=== PATIENT | female | born 1945 | race Caucasian/White ===

== ENCOUNTER → 2016-06-05 | Day surgery (SDC) | payer OTHER ==
[~2016-06-05] VITALS: Ht 167.6 cm; Wt 54.0 kg
[~2016-06-05] MED LIST: CEFD250S3 PO; Enteral Nutrition Formula PEG; FLUT0.15 NAE; HYDR-5688 PO; OMEP40CA41 PO; [UNRECOGNIZED DRUG - CODE] PO
[2016-06-05 09:24] VITALS: Ht 167.6 cm; Wt 54.0 kg
--- NOTE | 2016-06-05 10:36 | Discharge Instructions ---
Endoscopy Patient Instructions Date / Procedure(s) Performed Jun 05, 2016. Other (PEG tube exchange) Allergy Information Coded Allergies: Penicillins (Verified Allergy, Mild, 05/15/15) Discharge Date / Findings Jun 05, 2016. PEG tube exchanged - Vladimir 3.5 cm 20 Fr balloon peg placed Provider Instructions Activity Restrictions - No exercising or heavy lifting for 24 hours. - Do not drink alcohol the day of the procedure. - Do not drive a car or operate machinery until the day after the procedure. - Do not make any important decisions or sign important papers in 24 hours after the procedure. Following Day: - Return to full activity which may include returning to work/school. Diet Resume normal PEG tube feeding schedule. Treatment For Common After Affects For mild abdominal pain, bloating, or excessive gas: - Rest - Eat lightly - Lie on right side Follow-Up Information Follow-up with DR FENG as scheduled Anesthesia Information What You Should Know You have had a procedure that required some medicine to reduce anxiety and discomfort. This treatment is called moderate sedation. After receiving the treatment, you may be sleepy, but you will be able to breathe on your own. The effects of the treatment may last for several hours. Follow these instructions along with Activity/Diet recommendations noted above: * Do NOT do anything where dizziness or clumsiness would be dangerous. * Rest quietly at home today, then you can be up and about tomorrow. * Have a responsible person stay with you the rest of today. * You may have had an I.V. today. If so, you may take the dressing off later today. Recommendations Call your doctor if: * Trouble breathing * Continuous vomiting for more than 24 hours * Temperature above 101 degrees * Severe abdominal pain or bloating * Pain not relieved by pain medicine ordered * There is increased drainage or redness from any incision * A large amount of rectal bleeding greater than 2-3 tablespoons. (If you had a polyp/s removed or have hemorrhoids, a small amount of blood - from the rectum is to be expected.) * You have any unanswered questions or concerns. IN THE EVENT OF A SERIOUS EMERGENCY, GO TO THE NEAREST EMERGENCY ROOM Your discharge instructions were prepared by provider Imtiaz Chowdary. Patient Instructions Signature Page Sharmin Jackson Patient (or Guardian) Signature/Date: I have read and understand the instructions given to me by my caregivers. Caregiver/RN/Doctor Signature/Date: The above-named patient and/or guardian has received patient instructions on this date. + Original Patient Signature Page (only) stays with chart. Please make copy for patient.
--- NOTE | 2016-06-05 10:37 | Endo History and Physical ---
History & Physical Date of Service: Jun 05, 2016. Chief Complaint: FEEDING DIFFICULTIES Referring Physician: DR FENG History of Present Illness PEG tube Past Medical History Osteoporosis, Reflux, Cancer, Thyroid Disease Past Surgical History Hx Cardiac Surgery: No Hx Internal Defibrillator: No Hx Pacemaker: No Hx Abdominal Surgery: No Hx of Implantable Prosthesis: No Hx Post-Op Nausea and Vomiting: No Hx Cancer Surgery: Yes (PARTIAL MASTECTOMY) Hx Thoracic Surgery: No Hx Orthopedic: No Hx Urinary Tract Surgery: No Family History Colon CA Social History Smoking Status: Never Smoker Hx Substance Use: No Hx Alcohol Use: No Allergies Coded Allergies: Penicillins (Verified Allergy, Mild, 05/15/15) Current Medications Reported Home Medications Medications Dose Route/Sig Max Daily Dose Days Date Category Dose Instructions Omnicef (Cefdinir) 250 Mg/5 Ml Rachel 6 Ml PO DAILY 10 06/05/16 Reported [Enteral Nutrition Formula] 1000 ML Liqd 240 Ml PEG [id number] 30 05/18/15 Rx As Directed.Prescription is already given Flonase Allergy Relief (Fluticasone Propionate (Nasal)) 50 Mcg/Act Spr 2 Sprays NAVEED DAILY 05/04/15 Reported Levo-T (Levothyroxine Sodium) 112 Mcg Tab 112 Mcg PO DAILY 05/04/15 Reported Prilosec (Omeprazole) 40 Mg Cap 40 Mg PO DAILY 05/04/15 Reported Vital Signs Weight (Kilograms): 54 Height (Feet): 5 Height (Inches): 6 Date Time Temp Pulse Resp B/P Pulse Ox O2 Delivery O2 Flow Rate FiO2 06/05/16 09:23 36.4 61 16 168/70 100 Room Air Physical Exam General Appearance: no apparent distress Abdomen: Inspection & Palpation: soft Assessment and Plan PEG tube exchange
--- NOTE | 2016-06-05 10:39 | GI REPORT ---
Procedure Date: 06/05/2016 10:38 AM Procedure: Non-endoscopic Tube Procedure Indications: Change PEG to button Medicines: See the Anesthesia note for documentation of the administered medications Complications: No immediate complications. Estimated Blood Loss: Estimated blood loss: none. Procedure: Pre-Anesthesia Assessment: - ASA Grade Assessment: III - A patient with severe systemic disease. After obtaining informed consent, the site was prepped and the procedure was performed. The procedure was accomplished without difficulty. The patient tolerated the procedure well. Findings: Upon external examination, normal-appearing skin was found surrounding the stomal opening. The gastrostomy tube was patent. The gastrostomy tube required removal. The existing PEG site was cleaned. The existing PEG balloon was deflated and by using traction, removal was easily accomplished. A 20 Fr CELINA-PIERCE 3.5 cm low-profile gastrostomy tube was lubricated and placed into the existing gastrostomy port. A total of 6 mL distilled water was used to distend the balloon that was previously tested. The final tension and compression of the abdominal wall by the gastrostomy tube and external bumper were checked and revealed that the bumper was loose and lightly touching the skin. Placement into the stomach was confirmed with flushing, aspiration and auscultation. The tube was capped, and the tube site was cleaned and dressed. Impression: - The gastrostomy tube was removed and replaced with a 20 Fr CELINA-PIERCE low-profile gastrostomy tube. - No specimens collected. Recommendation: Discharge pt home. Orly Kan MD 06/05/2016 10:39:54 AM This report has been signed electronically. Note Initiated On: 06/05/2016 10:38 AM I attest to the content of the Intraoperative Record and orders documented therein, exceptions below
[2016-06-05 10:40] VITALS: BP 172/78; PULSE 61; O2SAT 98
== END | disposition home or self-care (01) ==
LOC: C.GI 08:48
PROVIDERS: ATTEND Internal Medicine Gastroenterology
DX: Z43.1 Encounter for attention to gastrostomy (principal); K21.9 Gastro-esophageal reflux disease without esophagitis; M81.0 Age-related osteoporosis without current pathological fracture; Z88.0 Allergy status to penicillin; Z80.0 Family history of malignant neoplasm of digestive organs

== ENCOUNTER → 2016-08-22 | Outpatient (CLI) | payer OTHER ==
[~2016-08-22] MED LIST changes: -HYDR-5688 PO
[2016-08-22 15:47] LABS: BASO % 0.3 %; BASO ABS # 0.01 K/uL (0-0.2); COMPLETE YES; EOS % 1.3 %; HEMATOCRIT 36.8 % (37-47); LYMPH % 19.9 %; LYMPH ABS # 0.78 K/uL (1.2-3.4); MEAN CELL VOLUME 90.4 fL (80-100); MEAN CORPUSCULAR HEMOGLOBIN 30.2 pg (25-34); MEAN CORPUSCULAR HGB CONC 33.4 g/dl (32-36); MEAN PLATELET VOLUME 12.7 fL (7.4-10.4); MONO % 7.4 %; NEUT % 71.1 %; PLATELET COUNT 153 K/uL (130-400); RED BLOOD COUNT 4.07 M/uL (4.2-5.4); WHITE BLOOD COUNT 3.91 K/uL (4.8-10.8)
[2016-08-22 15:54] LABS: ALT/SGPT 42 U/L (12-78); AST/SGOT 39 U/L (15-37); BLOOD UREA NITROGEN 25 mg/dl (7-18); BUN/CREATININE RATIO 31.8 (10-20); CALCIUM 9.3 mg/dl (8.5-10.1); CARBON DIOXIDE 31 mmol/L (21-32); CHLORIDE 106 mmol/L (98-107); CREATININE 0.77 mg/dl (0.60-1.20); GLUCOSE 141 mg/dl (70-99); POTASSIUM 4.1 mmol/L (3.5-5.1); SODIUM 141 mmol/L (136-145)
[2016-08-22 15:57] LABS: ALKALINE PHOSPHATASE 107 U/L (45-117)
== END | disposition home or self-care (01) ==
LOC: C.LAB1850 14:05
PROVIDERS: ATTEND Internal Medicine Infectious Disease
DX: L03.319 Cellulitis of trunk, unspecified (principal)

== ENCOUNTER → 2017-02-13 | Day surgery (SDC) | payer OTHER | END | disposition home or self-care (01) | LOC: C.ACU 12:41 | PROVIDERS: ATTEND Nurse Practitioner Family | DX: Z93.1 Gastrostomy status (principal) ==

== ENCOUNTER → 2017-08-15 | Outpatient (CLI) | payer OTHER ==
--- NOTE | 2017-08-15 15:14 | MAMMOGRAPHY REPORT ---
BILATERAL DIGITAL SCREENING MAMMOGRAM TOMOSYNTHESIS WITH CAD: 08/15/2017 CLINICAL HISTORY: Asymptomatic. Personal history of breast cancer. TECHNIQUE: Breast tomosynthesis in addition to standard 2D mammography was performed. Current study was also evaluated with a Computer Aided Detection (CAD) system. COMPARISON: Comparison is made to exams dated: 03/08/2015 mammogram, 03/13/2016 mammogram, 03/05/2014 mammogram, 09/19/2012 mammogram, and 08/23/2010 mammogram - [facility]. BREAST COMPOSITION: The tissue of both breasts is extremely dense, which lowers the sensitivity of m ammography. FINDINGS: The examination is suboptimal due to inability of the patient to adequately position for th e exam, particularly the left CC and MLO views, due to her physical condition. Within this limitatio n, there are moderate to marked vascular calcifications in the breasts. A stable grouping of round a nd punctate microcalcifications in the 12:00 right breast. No obvious new mass, architectural distort ion or new cluster of microcalcifications is seen. IMPRESSION: ACR BI-RADS CATEGORY 2: BENIGN There is no mammographic evidence of malignancy, within the limitations of the exam. A 1 year screeni ng mammogram is recommended. The patient will receive written notification of the results. Approximately 10% of breast cancers are not detected with mammography. A negative mammographic report should not delay biopsy if a clinically suggestive mass is present. Sara Franco M.D. ay/:08/15/2017 12:31:22 Radio Division Captain: Kemi MENDOZA(Roberto Carlos)(Hope), [facility] letter sent: Normal 1/2 BI-RADS Code: ACR BI-RADS Category 2: Benign
== END | disposition home or self-care (01) ==
LOC: C.MAMM 11:40
PROVIDERS: ATTEND Family Medicine
DX: Z12.31 Encounter for screening mammogram for malignant neoplasm of breast (principal)

== ENCOUNTER 2021-09-21 10:25 | Inpatient (IN) ==
--- NOTE | 2021-09-21 11:27 | XRay Report ---
XR chest 1V portable CLINICAL HISTORY: cough. COMPARISON STUDY: 06/22/2018 TECHNIQUE: 1 view of the chest FINDINGS: Single frontal view of the chest demonstrates the cardiomediastinal silhouette to be within normal li mits. Stable nodular density seen in the right lung base. There is hyperinflation of the lungs with a ttenuation of the pulmonary vasculature peripherally characteristic of underlying chronic obstructive pulmonary disease. Patchy interstitial and alveolar opacities are present bilaterally. The findings are most characteristic of a viral type pneumonitis. Covid 19 pneumonia should be excluded. No conflu ent alveolar opacities are seen. There is no evidence for pleural effusion. There is no evidence for vascular congestion. There is no acute osseous pathology. IMPRESSION: 1. COPD with patchy interstitial and alveolar opacities present bilaterally. 2. The presence of early viral type pneumonitis cannot be excluded. ACT 112: Negative or not required by law. Electronically signed by: Roberto Kuhn M.D. 09/21/2021 11:24 AM
[2021-09-21 11:41] LABS: Mean Corpuscular Hgb Conc 33.7 g/dL (32-36)
[2021-09-21 11:48] LABS: Hematocrit (blood only) 36.8 % (37-47); Hemoglobin 12.4 g/dL (12.0-16.0); Mean Corpuscular Hemoglobin 31.7 pg (25-34); Mean Corpuscular Volume 94.1 fL (80-100); RDW Coefficient of Variation 14.1 % (11.5-14.5); RDW Standard Deviation 48.2 fL (36.4-46.3); Red Blood Count 3.91 M/uL (4.2-5.4); White Blood Count 10.63 K/uL (4.8-10.8)
[2021-09-21 11:57] LABS: Albumin Globulin Ratio 1.2 (0.9-2); Albumin Level 4.1 gm/dl (3.4-5.0); BUN Creatinine Ratio 42.6 (10-20); Bilirubin,Total 1.3 mg/dl (0.2-1.0); Calcium 9.3 mg/dl (8.5-10.1); Creatinine Clr Calc Pharmacy 61.6 ml/min; Est GFR (African American) 101.3 ml/min; Est GFR (Non-African American) 87.4 ml/min; Globulin 3.4 gm/dl (2.5-4.0); Mean Platelet Volume 13.2 fL (7.4-10.4); Platelet Count 142 K/uL (130-400); Total Protein 7.5 gm/dl (6.0-8.3); Troponin I High Sensitivity 11.4 pg/ml (0-14)
[2021-09-21 11:59] LABS: Basophils # (auto) 0.01 K/uL (0-0.2); Basophils % (auto) 0.1 %; Immature Granulocytes # (auto) 0.03 K/uL (0.00-0.02); Immature Granulocytes % (auto) 0.3 %; Lymphocytes # (auto) 0.52 K/uL (1.2-3.4); Lymphocytes % (auto) 4.9 %; Monocytes # (auto) 0.71 K/uL (0.11-0.59); Monocytes % (auto) 6.7 %; Neutrophils # (auto) 9.36 K/uL (1.4-6.5); Platelet Estimate Decreased (Normal)
[2021-09-21 12:05] LABS: Thyroid Stimulating Hormone 0.29 uIu/ml (0.300-4.500)
--- NOTE | 2021-09-21 12:05 | Emergency Department Note ---
Impression & Plan Lightheadedness, Nasal congestion, Pneumonia, Acute UTI (urinary tract infection) ED Provider Note INFORMANT: Patient and ED PROVIDER(S): Todd James MD CHIEF COMPLAINT: Illness and lightheadedness PLAN: Disposition: Admitted Condition: Good Outpatient prescription management: none Referral: None MEDICAL DECISION MAKING: Patient presented to the emergency room because of confusion and illness with concerns for COVID from the primary office. The patient had COVID, flu, RSV testing performed and this was negative. She did have a touch of pneumonia on chest x-ray. Urinalysis was concerning for infection. Overall the patient seems to do relatively well although she is a poor historian. There is some mild confusion present. There is concerns from nursing about the patient's ability to get around and care. Under the circumstances the patient was given a dose of IV Rocephin. I discussed further management in the hospital with the patient and . I did discuss this with case management. They were in agreement. Consultation was made with the [facility]. Patient was evaluated in the ER and admitted. Triage Nursing notes reviewed and agree them. Vital Signs: reviewed and remarkable for no significant abnormalities Differential diagnosis: Infection, dehydration, metabolic abnormality, hypo/hyperglycemia, electrolyte disturbance, anemia, hypoxia, cardiac sources, intracerebral event, toxicologic, neurologic, as well as other pathologies. Diagnostics interpreted by me: ECG: Twelve-lead ECG reveals a sinus rhythm with first-degree block at 77 bpm. Left axis deviation and nonspecific ST. No PACs or PVCs. Cardiac Monitoring:Cardiac monitoring ordered by me: The patient was placed on continuous cardiac monitoring and observed. It revealed a normal sinus rhythm at 86 beats per minute without ectopy or evidence of dysrhythmia. Imaging studies: Chest x-ray concerning for mild pneumonia. I refer you to the EMR for further details. HPI: The patient is a 76 year old female who presents to the Emergency Room with complaints of lightheadedness. This started yesterday and is described as mild . The patient also notes the following associated symptoms, dizziness and nasal congestion. Patient was at primary care office and was sent to the ED for work- up and concern for COVID. No known COVID exposure. does have shortness of breath and was sent to the ED as well. The patient has taken no medication forrelieving factors. Current pain is rated as 0/10. Pt denies LOC, headache, fevers, chills, diaphoresis, visual changes, neck pain, chest pain, breathing difficulties, nausea, vomiting, abdominal pain, back pain, melena, hematochezia, urinary symptoms, numbness, new weakness, lymphadenopathy, rash, or other complaints. ROS: See above HPI for pertinent positives & negatives. A total of 10 systems reviewed and were otherwise negative. PAST MEDICAL HISTORY:See Below , stroke PAST SURGICAL HISTORY:See Below, FAMILY HISTORY:See Below SOCIAL HISTORY:See Below, HOME MEDICATIONS:See Below ALLERGIES:See Below VITALS:See Below PHYSICAL EXAMINATION: GENERAL: Awake, alert, well-appearing, in no distress HENT: Normocephalic, atraumatic. Minimal nasal congestion oropharynx unremarkable. EYES: Normal conjunctiva. Sclera non-icteric. NECK: Inspection normal. Non-tender. Supple. No nuchal rigidity. FROM. No masses. RESPIRATORY: Clear to auscultation. No wheezes. No rales. Normal respiratory effort. CARDIAC: Normal rate. Normal rhythm. No murmurs. No rubs. Extremities warm and well perfused. Pulses equal. No JVD. GI: Soft, non-distended. No tenderness to palpation. No rebound or guarding. No masses. RECTAL: Deferred. MUSCULOSKELETAL: Atraumatic. The back is kyphotic on inspection without obvious abnormality. There is no CVA tenderness to palpation. No joint edema. LOWER EXTREMITIES: Calves are equal size bilaterally and non-tender. No edema. No discoloration. NEURO: Normal sensorium. No sensory or motor deficits noted. SKIN: No rash or jaundice noted. 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" Surgical History (Updated 06/20/18 @ 16:37 by CEASAR Barnes) H/O endoscopy "with stricture, s/p dilation" H/O exploratory thoracotomy H/O partial mastectomy S/P percutaneous endoscopic gastrostomy (PEG) tube placement Family History Mother Colon cancer Social History (Updated 06/20/18 @ 16:19 by CEASAR Barnes) Smoking Status: Never smoker Hx Alcohol Use: No Hx Substance Use: No Preferred Language: Yi Communication Ability: Effective Multi Spindle Operator Required: No Beliefs That Will Affect Care: None marital status: Current Living Situation: Spouse Feels Safe at Home: Yes Assistive Devices: Walker Allergies Allergies Allergy/AdvReac Type Severity Reaction Status Date / Time Penicillins Allergy Mild Verified 09/21/21 13:54 Home Meds Home Medications Medication Instructions Recorded Confirmed levothyroxine 112 mcg tablet 112 mcg PO QAM 06/20/18 09/21/21 nutrition [id number] 2 can FEEDING TUBE TID 06/20/18 09/21/21 0.05 gram-1.2 kcal/mL tube feed liquid (Fibersource HN) acetaminophen 160 mg/5 mL oral 640 mg PO QID PRN 09/21/21 09/21/21 liquid (Children's Acetaminophen) Results & Data (ED) Vital Signs Vital Signs - 24 hr 09/21/21 10:35 09/21/21 10:55 09/21/21 11:35 Temperature 36.9 C Temperature Source Oral Pulse Rate 77 76 Pulse Rate [Right Finger] 72 Pulse Rhythm Regular Pulse Strength Normal Respiratory Rate 16 20 16 Respiratory Effort / Characteristics Non-Labored Spontaneous Non-Labored Respiratory Depth Normal Normal Respiratory Pattern Regular Blood Pressure 150/58 H Blood Pressure [Right Arm] 122/60 Blood Pressure Mean 88 Blood Pressure Mean [Right Arm] 80 Blood Pressure Position Lying Pulse Oximetry 98 99 96 Oxygen Delivery Method Room Air Room Air Room Air Sepsis Recent Fever Within 48 Hours No Sepsis New/Unexplained Change in Mental Status No Sepsis Action Taken by Nursing No Action Required 09/21/21 12:52 09/21/21 14:07 Temperature Temperature Source Pulse Rate Pulse Rate [Right Finger] 72 86 Pulse Rhythm Pulse Strength Respiratory Rate 16 16 Respiratory Effort / Characteristics Non-Labored Respiratory Depth Normal Respiratory Pattern Blood Pressure Blood Pressure [Right Arm] 150/78 H 156/80 H Blood Pressure Mean Blood Pressure Mean [Right Arm] 102 105 Blood Pressure Position Pulse Oximetry 97 96 Oxygen Delivery Method Room Air Sepsis Recent Fever Within 48 Hours Sepsis New/Unexplained Change in Mental Status Sepsis Action Taken by Nursing Laboratory Data Result diagrams: 09/21/21 11:03 09/21/21 11:03 Lab Results 09/21/21 09/21/21 09/21/21 Range/Units 11:03 11:03 11:03 WBC 10.63 (4.8-10.8) K/uL RBC 3.91 L (4.2-5.4) M/uL Hgb 12.4 (12.0-16.0) g/dL Hct 36.8 L (37-47) % MCV 94.1 (80-100) fL MCH 31.7 (25-34) pg MCHC 33.7 (32-36) g/dL RDW Std Deviation 48.2 H (36.4-46.3) fL RDW Coeff of Elliot 14.1 (11.5-14.5) % Plt Count 142 (130-400) K/uL MPV 13.2 H (7.4-10.4) fL Immature Gran % (Auto) 0.3 % Neut % (Auto) 88.0 % Lymph % (Auto) 4.9 % Lynn % (Auto) 6.7 % Eos % (Auto) 0.0 % Baso % (Auto) 0.1 % Neut # (Auto) 9.36 H (1.4-6.5) K/uL Lymph # (Auto) 0.52 L (1.2-3.4) K/uL Lynn # (Auto) 0.71 H (0.11-0.59) K/uL Eos # (Auto) 0.00 (0-0.5) K/uL Baso # (Auto) 0.01 (0-0.2) K/uL Immature Gran # (Auto) 0.03 H (0.00-0.02) K/uL Platelet Estimate Decreased L (Normal) Sodium 140 (136-145) mmol/L Potassium 4.0 (3.5-5.1) mmol/L Chloride 103 (98-107) mmol/L Carbon Dioxide 30 (21-32) mmol/L Anion Gap 7 (3-11) BUN 26 H (6-23) mg/dl Creatinine 0.61 (0.6-1.2) mg/dl Est Cr Clr Drug Dosing 61.6 ml/min Est GFR ( Amer) 101.3 ml/min Est GFR (Non-Af Amer) 87.4 ml/min BUN/Creatinine Ratio 42.6 H (10-20) Glucose 165 H (70-99(Fasting)) mg/dl Calcium 9.3 (8.5-10.1) mg/dl Total Bilirubin 1.3 H (0.2-1.0) mg/dl AST 24 (13-39) U/L ALT 15 (7-52) U/L Alkaline Phosphatase 77 (34-104) U/L Troponin I High Sens 11.4 (0-14) pg/ml Total Protein 7.5 (6.0-8.3) gm/dl Albumin 4.1 (3.4-5.0) gm/dl Globulin 3.4 (2.5-4.0) gm/dl Albumin/Globulin Ratio 1.2 (0.9-2) TSH 0.290 L (0.300-4.500) uIu/ml Free T4 1.37 (0.61-1.60) ng/dl Urine Color Urine Appearance (Clear) Urine pH (4.5-7.5) Ur Specific [place] (1.000-1.030) Urine Protein (Negative) Urine Glucose (UA) (Negative) Urine Ketones (Negative) Urine Blood (Negative) Urine Nitrite (Negative) Urine Bilirubin (Negative) Urine Urobilinogen (Negative) Ur Leukocyte Esterase (Negative) Urine WBC (Auto) (0-5) /hpf Urine RBC (Auto) (0-4) /hpf U Hyaline Cast (Auto) (0-5) /lpf U Epithel Cells (Auto) (0-5) /lpf Urine Bacteria (Auto) (Negative) SARS-CoV-2 (PCR) (Negative) Influenza Type A (PCR) (Neg) Influenza Type B (PCR) (Neg) RSV (RT-PCR) (Neg) 09/21/21 09/21/21 Range/Units 11:03 11:57 WBC (4.8-10.8) K/uL RBC (4.2-5.4) M/uL Hgb (12.0-16.0) g/dL Hct (37-47) % MCV (80-100) fL MCH (25-34) pg MCHC (32-36) g/dL RDW Std Deviation (36.4-46.3) fL RDW Coeff of Elliot (11.5-14.5) % Plt Count (130-400) K/uL MPV (7.4-10.4) fL Immature Gran % (Auto) % Neut % (Auto) % Lymph % (Auto) % Lynn % (Auto) % Eos % (Auto) % Baso % (Auto) % Neut # (Auto) (1.4-6.5) K/uL Lymph # (Auto) (1.2-3.4) K/uL Lynn # (Auto) (0.11-0.59) K/uL Eos # (Auto) (0-0.5) K/uL Baso # (Auto) (0-0.2) K/uL Immature Gran # (Auto) (0.00-0.02) K/uL Platelet Estimate (Normal) Sodium (136-145) mmol/L Potassium (3.5-5.1) mmol/L Chloride (98-107) mmol/L Carbon Dioxide (21-32) mmol/L Anion Gap (3-11) BUN (6-23) mg/dl Creatinine (0.6-1.2) mg/dl Est Cr Clr Drug Dosing ml/min Est GFR ( Amer) ml/min Est GFR (Non-Af Amer) ml/min BUN/Creatinine Ratio (10-20) Glucose (70-99(Fasting)) mg/dl Calcium (8.5-10.1) mg/dl Total Bilirubin (0.2-1.0) mg/dl AST (13-39) U/L ALT (7-52) U/L Alkaline Phosphatase (34-104) U/L Troponin I High Sens (0-14) pg/ml Total Protein (6.0-8.3) gm/dl Albumin (3.4-5.0) gm/dl Globulin (2.5-4.0) gm/dl Albumin/Globulin Ratio (0.9-2) TSH (0.300-4.500) uIu/ml Free T4 (0.61-1.60) ng/dl Urine Color Yellow Urine Appearance Turbid A (Clear) Urine pH >= 9.0 H (4.5-7.5) Ur Specific [place] 1.019 (1.000-1.030) Urine Protein 1+ H (Negative) Urine Glucose (UA) Negative (Negative) Urine Ketones Negative (Negative) Urine Blood Negative (Negative) Urine Nitrite Negative (Negative) Urine Bilirubin Negative (Negative) Urine Urobilinogen Negative (Negative) Ur Leukocyte Esterase 1+ H (Negative) Urine WBC (Auto) 10-30 H (0-5) /hpf Urine RBC (Auto) 10-30 H (0-4) /hpf U Hyaline Cast (Auto) 1-5 (0-5) /lpf U Epithel Cells (Auto) >30 H (0-5) /lpf Urine Bacteria (Auto) Negative (Negative) SARS-CoV-2 (PCR) NEGATIVE (Negative) Influenza Type A (PCR) Negative (Neg) Influenza Type B (PCR) Negative (Neg) RSV (RT-PCR) Negative (Neg) Imaging Data Radiologist's Impression: Chest X-Ray 09/21/21 10:58 XR chest 1V portable CLINICAL HISTORY: cough. COMPARISON STUDY: 06/22/2018 TECHNIQUE: 1 view of the chest FINDINGS: Single frontal view of the chest demonstrates the cardiomediastinal silhouette to be within normal limits. Stable nodular density seen in the right lung base. There is hyperinflation of the lungs with attenuation of the pulmonary vasculature peripherally characteristic of underlying chronic obstructive pulmonary disease. Patchy interstitial and alveolar opacities are present bilaterally. The findings are most characteristic of a viral type pneumonitis. Covid 19 pneumonia should be excluded. No confluent alveolar opacities are seen. There is no evidence for pleural effusion. There is no evidence for vascular congestion. There is no acute osseous pathology. IMPRESSION: 1. COPD with patchy interstitial and alveolar opacities present bilaterally. 2. The presence of early viral type pneumonitis cannot be excluded. ACT 112: Negative or not required by law. Electronically signed by: Roberto Kuhn M.D. 09/21/2021 11:24 AM Discharge Plan Visit Data Chief Complaint: Illness Stated Complaint: Illness ED Provider: Todd James Discharge Problem: Lightheadedness, Nasal congestion, Pneumonia, Acute UTI (urinary tract infection) Forms Stand Alone Forms: My [facility] [employer] Prescriptions Prescriptions: No Action levothyroxine 112 mcg tablet 112 mcg PO QAM RF: 0 Fibersource HN 0.05 gram- 1.2 kcal/mL Liquid 2 can Feeding Tube TID RF: 0 acetaminophen [Children's Acetaminophen] 160 mg/5 mL Liquid 640 mg PO QID PRN (Reason: Pain) RF: 0 Referrals Referrals: Siva Washington DO [Primary Care Provider] -
[2021-09-21 12:11] LABS: Influenza A virus by PCR Negative (Neg); Influenza B virus by PCR Negative (Neg); RSV by PCR Negative (Neg); SARS CoV2 RNA(COVID-19) InHosp NEGATIVE (Negative)
[2021-09-21 12:12] LABS: Appearance Urine Turbid (Clear); Bacteria Urine Automated Negative (Negative); Bilirubin Urine Negative (Negative); Blood Urine Negative (Negative); Color Urine Yellow; Epithelial Cell Urine Auto >30 /lpf (0-5); Glucose Urine UA Negative (Negative); Ketones Urine Negative (Negative); Leukocyte Esterase Urine 1+ (Negative); Nitrite Urine Negative (Negative); Specific Gravity Urine 1.019 (1.000-1.030); Urobilinogen Urine Negative (Negative); pH Urine >= 9.0 (4.5-7.5)
[2021-09-21 12:17] LABS: Protein Urine 1+ (Negative)
[2021-09-21 12:50] LABS: T4 Free Thyroxine 1.37 ng/dl (0.61-1.60)
[2021-09-21] MEDS ORDERED: cefTRIAXone SODIUM 2,000 MG/70 ML BAG IV STA (13:35)
--- NOTE | 2021-09-21 14:12 | Electrocardiogram Report ---
Test Reason : Blood Pressure : / mmHG Vent. Rate : 077 BPM Atrial Rate : 077 BPM P-R Int : 242 ms QRS Dur : 066 ms QT Int : 388 ms P-R-T Axes : 083 -44 035 degrees QTc Int : 439 ms Poor data quality, interpretation may be adversely affected Sinus rhythm with 1st degree A-V block Left axis deviation Nonspecific ST abnormality Abnormal ECG When compared with ECG of 20-JUN-2018 12:45, Premature supraventricular complexes are no longer Present Confirmed by Farhat Quintanilla ([id number]) on 09/21/2021 2:11:52 PM Referred By: ED Confirmed By:Farhat Quintanilla
--- NOTE | 2021-09-21 15:18 | History & Physical Report ---
Date of Service September 21, 2021 Assessment & Plan (1) Pneumonia: Plan: Possible pneumonia Patient is 76 y/o F with PMH hypothyroidism, history of breast CA and tongue CA s/p PEG tube, severe protein calorie malnutrition presented to ER with complaint of dizziness, weakness, myalgias, chills, rhinorrhea x 2 days. with similar symptoms In ER patient afebrile, no hypoxia. No leukocytosis. Negative COVID-19 PCR and influenza PCR. Chest x-ray with patchy interstitial and alveolar opacities bilaterally. In ER given Rocephin Procalcitonin 0.35 Biofire pending Rocephin, Doxycycline Gentle IVF CBC, BMP in am (2) Confusion: Plan: reported confusion per PCP office visit today. Currently pt A&O CT Head no acute intracranial findings UA 1+leuk esterase, 10-30 WBC, >30 epithelial, No bacteria, no nitrite Urine culture and urine tox screen pending Blood culture pending Carboxyhemoglobin WNL On Rocephin as above May be secondary to underlying illness Monitor (3) Tongue cancer: (4) Oropharyngeal dysphagia: (5) S/P percutaneous endoscopic gastrostomy (PEG) tube placement: (6) Protein calorie malnutrition: Plan: History left lateral tongue carcinoma Nutrition through tube feeds. Patient reports does not take food p.o. Continue nutrition via feeding tube. Consult dietitian (7) Breast cancer: Plan: H/O Left breast CA s/p lumpectomy and sentinel lymph node biopsy, radiation and Arimidex (8) Hypothyroidism: Plan: Continue levothyroxine DVT Prophylaxis Heparin SQ DNR/DNI as per discussion with pt Follows with Dr Washington for routine care Pt was seen and care coordinated with Dr Torres. See addendum History of Present Illness Chief Complaint: Myalgias, dizziness Primary Care Provider: Siva Washington DO Patient is 76 y/o F with PMH hypothyroidism, history of breast CA and tongue CA s/p PEG tube, severe protein calorie malnutrition presented to ER with complaint of dizziness, weakness, myalgias, chills, rhinorrhea x 2 days. Was seen at PCPs office today and reported to be confused and had noted cough. She had COVID-19 test pending from yesterday. She was referred to ER for further evaluation and treatment. Of note patient's also with symptoms of dizziness myalgias and confusion. History COVID-19 vaccine 07/22/2020, 08/12/2020, 03/16/2021. Denies N/V/D/C, [place], syncope, vision changes, neck pain, CP, otalgia, abdominal pain, paresthesias, extremity edema, rashes, urinary symptoms. Denies recent travel. In ER patient afebrile, no hypoxia. No leukocytosis. Chest x-ray with patchy interstitial and alveolar opacities bilaterally. Negative COVID-19 PCR and influenza PCR. Allergies Allergy/AdvReac Type Severity Reaction Status Date / Time Penicillins Allergy Mild Verified 09/21/21 13:54 Home Medications Medication Instructions Recorded Confirmed Type levothyroxine 112 mcg tablet 112 mcg PO QAM 06/20/18 09/21/21 History acetaminophen 160 mg/5 mL oral 640 mg PO QID PRN 09/21/21 09/21/21 History liquid (Children's Acetaminophen) nutritional supplement-fiber oral 2 ea FEEDING TUBE TID 09/21/21 09/21/21 History liquid Past Med/Surg History Medical History (Updated 09/21/21 @ 16:16 by Nova Hagen PA-C) Breast cancer "s/p lumpectomy and node dissection in 2004, radiation completed 2005, chemo [id number]" 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 follows with [facility]" Dyslipidemia GERD (gastroesophageal reflux disease) Hypothyroidism Oropharyngeal dysphagia Osteoporosis Protein calorie malnutrition Recurrent cellulitis Sarcoidosis "s/p lung biopsy" Tongue cancer "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" Surgical History H/O endoscopy "with stricture, s/p dilation" H/O exploratory thoracotomy H/O partial mastectomy S/P percutaneous endoscopic gastrostomy (PEG) tube placement Family History Mother Colon cancer Social History Smoking Status: Never smoker Hx Alcohol Use: No Hx Substance Use: No Preferred Language: Malian Communication Ability: Effective Statement Processor Required: No Beliefs That Will Affect Care: None marital status: Current Living Situation: Spouse Feels Safe at Home: Yes Assistive Devices: Walker Review of Systems Review of Systems: All systems reviewed & are unremarkable except as noted in HPI & below Physical Exam Physical Exam: General: +chronic ill appearing, in no acute distress, +thin Head: normocephalic, atraumatic Eyes: conjunctiva non-injected, anicteric ENT: normal inspection external ears, nose, mucous membranes mildly dry Neck: supple, trachea midline Lungs: clear, no respiratory distress, no wheezing/rhonchi/rales CV: RRR, + murmur, no pretibial edema Abd: normal BS, +PEG tube without surrounding erythema, soft, non-tender Ext: no cyanosis, no calf tenderness Neuro: A&O x 3, no focal deficits noted, +slurred/mumbled speech. (chronic) Skin: warm, dry Results & Data Results & Data ([facility]) Vital Signs (Past 12 Hours) Vital Signs Temp Pulse Pulse Resp BP BP Pulse Ox 09/21/21 14:07 86 16 156/80 H 96 09/21/21 12:52 72 16 150/78 H 97 09/21/21 11:35 72 16 122/60 96 09/21/21 10:55 76 20 99 09/21/21 10:35 36.9 C 77 16 150/58 H 98 Laboratory Results Short CBC 09/21/21 Range/Units 11:03 WBC 10.63 (4.8-10.8) K/uL Hgb 12.4 (12.0-16.0) g/dL Hct 36.8 L (37-47) % Plt Count 142 (130-400) K/uL BMP 09/21/21 11:03 Sodium 140 Potassium 4.0 Chloride 103 Carbon Dioxide 30 BUN 26 H Creatinine 0.61 Glucose 165 H Calcium 9.3 Liver Function 09/21/21 Range/Units 11:03 Total Bilirubin 1.3 H (0.2-1.0) mg/dl AST 24 (13-39) U/L ALT 15 (7-52) U/L Alkaline Phosphatase 77 (34-104) U/L Albumin 4.1 (3.4-5.0) gm/dl Urine 09/21/21 Range/Units 11:57 Urine Color Yellow Urine Appearance Turbid A (Clear) Urine pH >= 9.0 H (4.5-7.5) Ur Specific [place] 1.019 (1.000-1.030) Urine Protein 1+ H (Negative) Urine Glucose (UA) Negative (Negative) Diagnostic Findings Chest X-Ray 09/21/21 10:58 XR chest 1V portable CLINICAL HISTORY: cough. COMPARISON STUDY: 06/22/2018 TECHNIQUE: 1 view of the chest FINDINGS: Single frontal view of the chest demonstrates the cardiomediastinal silhouette to be within normal limits. Stable nodular density seen in the right lung base. There is hyperinflation of the lungs with attenuation of the pulmonary vasculature peripherally characteristic of underlying chronic obstructive pulmonary disease. Patchy interstitial and alveolar opacities are present bilaterally. The findings are most characteristic of a viral type pneumonitis. Covid 19 pneumonia should be excluded. No confluent alveolar opacities are seen. There is no evidence for pleural effusion. There is no evidence for vascular congestion. There is no acute osseous pathology. IMPRESSION: 1. COPD with patchy interstitial and alveolar opacities present bilaterally. 2. The presence of early viral type pneumonitis cannot be excluded. ACT 112: Negative or not required by law. Electronically signed by: Roberto Kuhn M.D. 09/21/2021 11:[address] 09/21/21 15:[address] DOSE: 537.48 mGy.cm HISTORY: Altered mental status. TECHNIQUE: Multiaxial CT images of the head were performed without the use of intravenous contrast. Automated exposure control was utilized for this study. A dose lowering technique was utilized adhering to the principles of ALARA. Comparison: Head CT 06/22/2018. Findings: Opacified left posterior ethmoid air cells. The remaining paranasal sinuses and mastoid air cells are clear. The calvarium and skull base are intact. No hematoma, midline shift, acute infarct. Mild atrophy and microvascular ischemic changes are again noted. There is again noted a partially visualized extra-axial 1.3 cm hyperdense lesion at the level the foramen magnum posterior to the cervicomedullary junction. This is decreased in size compared the prior study when it measured approximately 1.9 cm. This also demonstrates a small amount of peripheral calcification. This is indeterminate but likely benign given the decrease in size compared to the prior study. No associated mass effect at this time. Impression: 1. No acute intracranial abnormality. 2. Decrease in size in the circumscribed extra-axial mass posterior to the cervicomedullary junction at the foramen magnum. This is nonspecific but likely benign given the decrease in size. ACT 112: Negative or not required by law. Electronically signed by: Tomasz Machado M.D. 09/21/2021 3:56 PM Code Status & VTE Plan VTE Prophylaxis Plan VTE Prophylaxis will be ordered: Yes Supervising Physician Co-Signing Physician Notes Patient is a 76-year-old female with history of breast cancer, tongue cancer S/P PEG tube, severe protein calorie malnutrition and other medical problems presents with history of dizziness, generalized weakness, myalgia, chills and rhinorrhea since 2 days duration. Also reports minimal cough and was reported to be confused while at PCPs office today. She was tested negative for COVID while in ED. Please review HPI for complete details of presentation. Blood work fairly within normal limits. Bilirubin 1.3, glucose 165, TSH 0.2, free T4 1.37, procalcitonin 0.35. Bio fire pending. CT head showed no acute intracranial abnormality. Chest x-ray suggestive COPD with patchy interstitial and alveolar opacity present bilaterally. EKG showed normal sinus rhythm, first-degree AV block, left axis deviation, nonspecific ST abnormality. On exam patient is thin, frail, chronically appearing, no apparent distress, normocephalic atraumatic, EOMI, normal breath sounds, clear to auscultation, S1- S2,+ murmur, no pedal edema, abdomen soft, nontender,+ PEG tube, alert, awake, oriented, grossly no focal deficits,+ slurred speech present.Patient is admitted for management of pneumonia DD: Aspiration, possible COVID. Agree with starting on Rocephin, doxycycline. Gentle IV fluids. Blood cultures obtained. Further management based on bio fire. PT OT, fall precautions. Drug screen, carboxyhemoglobin pending. Tube feeds for nutrition. I personally reviewed the record. Patient is interviewed and examined at bedside. Patient's care is coordinated with Nova Hagen PA-C. Please refer to the documentation above for details of patient's presentation and for discussion of other issues.
--- NOTE | 2021-09-21 15:57 | CT Scan Report ---
HEAD CT NONCONTRAST CT DOSE: 537.48 mGy.cm HISTORY: Altered mental status. TECHNIQUE: Multiaxial CT images of the head were performed without the use of intravenous contrast. A utomated exposure control was utilized for this study. A dose lowering technique was utilized adheri ng to the principles of ALARA. Comparison: Head CT 06/22/2018. Findings: Opacified left posterior ethmoid air cells. The remaining paranasal sinuses and mastoid air cells are clear. The calvarium and skull base are intact. No hematoma, midline shift, acute infarct. Mild atrophy and microvascular ischemic changes are again noted. There is again noted a partially vi sualized extra-axial 1.3 cm hyperdense lesion at the level the foramen magnum posterior to the cervic omedullary junction. This is decreased in size compared the prior study when it measured approximatel y 1.9 cm. This also demonstrates a small amount of peripheral calcification. This is indeterminate bu t likely benign given the decrease in size compared to the prior study. No associated mass effect at this time. Impression: 1. No acute intracranial abnormality. 2. Decrease in size in the circumscribed extra-axial mass posterior to the cervicomedullary junction at the foramen magnum. This is nonspecific but likely benign given the decrease in size. ACT 112: Negative or not required by law. Electronically signed by: Tomasz Machado M.D. 09/21/2021 3:56 PM
[2021-09-21 17:37] LABS: Adenovirus PCR Not Detected (NotDetected); Bordetella parapertussis PCR Not Detected (NotDetected); Bordetella pertussis PCR Not Detected (NotDetected); Chlamydia pneumoniae PCR Not Detected (NotDetected); Coronavirus 229E PCR Not Detected (NotDetected); Coronavirus CoV-2 (COVID19)PCR Not Detected (NotDetected); Coronavirus HKU1 PCR Not Detected (NotDetected); Coronavirus NL63 PCR Not Detected (NotDetected); Coronavirus OC43PCR Not Detected (NotDetected); Human Metapneumovirus PCR Not Detected (NotDetected); Influenza A PCR Not Detected (NotDetected); Influenza B PCR Not Detected (NotDetected); Mycoplasma pneumoniae PCR Not Detected (NotDetected); Parainfluenza Virus 1 PCR Not Detected (NotDetected); Parainfluenza Virus 2 PCR Not Detected (NotDetected); Parainfluenza Virus 3 PCR Not Detected (NotDetected); Parainfluenza Virus 4 PCR Not Detected (NotDetected); Respiratory Syncytial VirusPCR Not Detected (NotDetected); Rhinovirus/Enterovirus PCR Not Detected (NotDetected)
[2021-09-21] MEDS ORDERED: SODIUM CHLORIDE 0.65% NA SOLN 45 ML (OCEAN) PRN (17:45)
[2021-09-21] MEDS ORDERED: SODIUM CHLORIDE 0.9% 1000ML 1,000 ML IV SCH (17:45)
[2021-09-21] MEDS: DOXYCYCLINE HYCLATE 100 MG in DEXTROSE 5% 100 ML IV SCH (19:10)
[2021-09-21] MEDS: HEPARIN SOD 5,000 UNIT/0.5 ML VIAL SQ SCH (20:50)
[2021-09-21] MEDS ORDERED: NON-FORMULARY MEDICATION (Nutritional Supplement-Fiber Liquid) feeding tube SCH (21:00)
[2021-09-22] MEDS: DOXYCYCLINE HYCLATE 100 MG in DEXTROSE 5% 100 ML IV SCH ×2 (08:20→18:09)
[2021-09-22] MEDS: HEPARIN SOD 5,000 UNIT/0.5 ML VIAL SQ SCH ×2 (08:27→20:37)
[2021-09-22 09:32] LABS: Mean Corpuscular Hgb Conc 33.4 g/dL (32-36)
[2021-09-22 09:38] LABS: BUN Creatinine Ratio 31.1 (10-20); Calcium 8.4 mg/dl (8.5-10.1); Creatinine Clr Calc Pharmacy 82.8 ml/min; Est GFR (Non-African American) 96.7 ml/min; Potassium 3.7 mmol/L (3.5-5.1)
[2021-09-22 09:47] LABS: Hematocrit (blood only) 36.2 % (37-47); Hemoglobin 12.1 g/dL (12.0-16.0); Mean Corpuscular Hemoglobin 31.1 pg (25-34); Mean Corpuscular Volume 93.1 fL (80-100); RDW Coefficient of Variation 13.9 % (11.5-14.5); RDW Standard Deviation 47.3 fL (36.4-46.3); Red Blood Count 3.89 M/uL (4.2-5.4); White Blood Count 8.59 K/uL (4.8-10.8)
[2021-09-22 09:52] LABS: Mean Platelet Volume 13.3 fL (7.4-10.4); Platelet Count 131 K/uL (130-400)
[2021-09-22] MEDS ORDERED: Nursing to Pharmacy Communication SCH (12:30)
[2021-09-22] MEDS ORDERED: FIBERSOURCE HN 1.2 CAL 1000 ML BAG GT SCH ×2 (13:00→16:00)
[2021-09-22] MEDS: LEVOTHYROXINE SODIUM 112 MCG TABLET PO SCH (14:11)
[2021-09-22] MEDS: TUBE FEEDING WATER FLUSH GT SCH ×3 (14:11→20:38)
[2021-09-22] MEDS ORDERED: cefTRIAXone SODIUM 1,000 MG in DEXTROSE 5% 50 ML IV SCH (15:00)
--- NOTE | 2021-09-22 15:50 | Hospitalist Progress Note ---
Date of Service September 22, 2021 Assessment & Plan (1) Pneumonia: Plan: Possible pneumonia Patient is 76 y/o F with PMH hypothyroidism, history of breast CA and tongue CA s/p PEG tube, severe protein calorie malnutrition presented to ER with complaint of dizziness, weakness, myalgias, chills, rhinorrhea x 2 days. with similar symptoms In ER patient afebrile, no hypoxia. No leukocytosis. Negative COVID-19 PCR and influenza PCR. Chest x-ray with patchy interstitial and alveolar opacities bilaterally. In ER given Rocephin Procalcitonin 0.35 Biofire pending-negative Rocephin, Doxycycline Gentle IVF CBC, BMP in am-unremarkable Remains afebrile and without any shortness of breath at rest and saturating normally on room air We will get PT and OT evaluation for possible discharge tomorrow (2) Confusion: Plan: reported confusion per PCP office visit today. Currently pt A&O CT Head no acute intracranial findings UA 1+leuk esterase, 10-30 WBC, >30 epithelial, No bacteria, no nitrite Urine culture and urine tox screen pending Blood culture pending Carboxyhemoglobin WNL On Rocephin as above May be secondary to underlying illness Cleared-no more confusion (3) Tongue cancer: Plan: No acute symptoms (4) Oropharyngeal dysphagia: (5) S/P percutaneous endoscopic gastrostomy (PEG) tube placement: (6) Protein calorie malnutrition: Plan: History left lateral tongue carcinoma Nutrition through tube feeds. Patient reports does not take food p.o. Continue nutrition via feeding tube. Consult dietitian Continue tube feeding (7) Breast cancer: Plan: H/O Left breast CA s/p lumpectomy and sentinel lymph node biopsy, radiation and Arimidex (8) Hypothyroidism: Plan: Continue levothyroxine DVT Prophylaxis Heparin SQ DNR/DNI as per discussion with pt Follows with Dr Washington for routine care PT and OT evaluation prior to discharge Admission and Anticipated Discharge Date Admission Date: September 21, 2021 Subjective 09/22/2021 The patient was seen and examined in medical telemetry unit She denies any symptoms as of today but remains extremely weak and tired No shortness of breath, cough, pain and/or palpitation, no nausea or vomiting Review of Systems Review of Systems: All systems reviewed and are unremarkable except as noted below Physical Exam Physical Exam: Lying in bed comfortably Constitutional: + ill appearing and + thin Eyes: PERRL, conjunctivae normal, anicteric sclerae ENMT: external ear and nose normal, oropharynx normal Neck: trachea midline, no thyromegaly Respiratory: no respiratory distress Auscultation: + diminished lung sounds; no crackles and no wheezes Cardiovascular: Rate/Rhythm: regular rate and regular rhythm; not tachycardic Heart Sounds: normal S1 and normal S2; no murmur Extremities: no edema Gastrointestinal (Abdomen): Inspection/Auscultation: normal bowel sounds; abdomen not distended Percussion/Palpation: abdomen soft; abdomen nontender Status post PEG tube in place Musculoskeletal: No acute arthritis in any joint Neurologic: Alert, awake. Difficulty in speech due to tongue cancer. Generally weak and lethargic Results & Data Results & Data ([facility] [place]) Vital Signs (Past 12 Hours) Vital Signs Temp Pulse Pulse Resp BP Pulse Ox 09/22/21 11:25 36.8 C 70 16 153/68 H 95 09/22/21 07:09 37.1 C 73 18 148/74 H 95 09/22/21 06:20 64 Laboratory Results Short CBC 09/22/21 Range/Units 08:10 WBC 8.59 (4.8-10.8) K/uL Hgb 12.1 (12.0-16.0) g/dL Hct 36.2 L (37-47) % Plt Count 131 (130-400) K/uL BMP 09/22/21 08:10 Sodium 140 Potassium 3.7 Chloride 108 H Carbon Dioxide 24 BUN 14 Creatinine 0.45 L Glucose 91 Calcium 8.4 L Medications Administered Current Inpatient Medications Enteral Nutritional Formula (Fibersource Hn 1.2 [place]ector 1000 Ml Bag) 1,000 ml GT Q24H NERY; Protocol Stop: 10/22/21 15:59 Heparin Sodium (Porcine) (Heparin Sod 5,000 Unit/0.5 Ml Vial) 5,000 units SQ Q12 NERY Stop: 10/21/21 20:59 Last Admin: 09/22/21 08:27 Dose: 5,000 units Documented by: Ceftriaxone Sodium 1,000 mg/ (Dextrose) 60 mls @ 100 mls/hr IV DAILY@1500 NERY; Protocol Stop: 09/29/21 14:59 Last Admin: 09/22/21 15:15 Dose: 100 mls/hr Documented by: Doxycycline Hyclate 100 mg/ (Dextrose) 110 mls @ 50 mls/hr IV Q12H NERY Stop: 09/28/21 18:59 Last Infusion: 09/22/21 13:26 Dose: Infused Documented by: Levothyroxine Sodium (Levothyroxine Sodium 112 Mcg Tablet) 112 mcg PO DAILYBB [facility] Stop: 10/22/21 06:29 Last Admin: 09/22/21 14:11 Dose: Not Given Documented by: Sodium Chloride (Sodium Chloride 0.65% Na Soln 45 Ml ([place])) 2 sprays NA Q4H PRN PRN Reason: Nasal Congestion Stop: 10/21/21 17:44 Sterile Water (Tube Feeding Water Flush) 125 ml GT Q4H NERY Stop: 10/22/21 12:59 Last Admin: 09/22/21 14:11 Dose: 125 ml Documented by:
[2021-09-23] MEDS: TUBE FEEDING WATER FLUSH GT SCH ×4 (01:36→12:06)
[2021-09-23] MEDS: LEVOTHYROXINE SODIUM 112 MCG TABLET PO SCH (06:19)
[2021-09-23] MEDS: DOXYCYCLINE HYCLATE 100 MG in DEXTROSE 5% 100 ML IV SCH (09:02)
[2021-09-23] MEDS: HEPARIN SOD 5,000 UNIT/0.5 ML VIAL SQ SCH (09:03)
--- NOTE | 2021-09-23 13:25 | Hospitalist Progress Note ---
Date of Service September 23, 2021 Assessment & Plan (1) Pneumonia: Plan: Possible pneumonia Patient is 76 y/o F with PMH hypothyroidism, history of breast CA and tongue CA s/p PEG tube, severe protein calorie malnutrition presented to ER with complaint of dizziness, weakness, myalgias, chills, rhinorrhea x 2 days. with similar symptoms In ER patient afebrile, no hypoxia. No leukocytosis. Negative COVID-19 PCR and influenza PCR. Chest x-ray with patchy interstitial and alveolar opacities bilaterally. In ER given Rocephin Procalcitonin 0.35 Biofire pending-negative Rocephin, Doxycycline Gentle IVF CBC, BMP in am-unremarkable Remains afebrile and without any shortness of breath at rest and saturating normally on room air Remains asymptomatic without any signs and or symptoms of ongoing infection Will change antibiotics to oral cefdinir for 5 more days Has had PT evaluation and recommended home Should be discharged home this afternoon (2) Confusion: Plan: reported confusion per PCP office visit today. Currently pt A&O CT Head no acute intracranial findings UA 1+leuk esterase, 10-30 WBC, >30 epithelial, No bacteria, no nitrite Urine culture and urine tox screen pending Blood culture pending Carboxyhemoglobin WNL On Rocephin as above May be secondary to underlying illness Cleared-no more confusion (3) Tongue cancer: Plan: No acute symptoms (4) Oropharyngeal dysphagia: (5) S/P percutaneous endoscopic gastrostomy (PEG) tube placement: Plan: Continue PEG tube feeding (6) Protein calorie malnutrition: Plan: Has severe protein calorie malnutrition with a BMI of 21.1 kg per metered square History left lateral tongue carcinoma Nutrition through tube feeds. Patient reports does not take food p.o. Continue nutrition via feeding tube. Consult dietitian Continue tube feeding (7) Breast cancer: Plan: H/O Left breast CA s/p lumpectomy and sentinel lymph node biopsy, radiation and Arimidex (8) Hypothyroidism: Plan: Continue levothyroxine DVT Prophylaxis Heparin SQ DNR/DNI as per discussion with pt Follows with Dr Washington for routine care Discharge home this afternoon Admission and Anticipated Discharge Date Admission Date: September 21, 2021 Subjective 09/22/2021 The patient was seen and examined in medical telemetry unit She denies any symptoms as of today but remains extremely weak and tired No shortness of breath, cough, pain and/or palpitation, no nausea or vomiting 09/23/2021 The patient was seen and examined in medical telemetry unit She has been feeling much better since following admission Denies any significant symptoms She has had physical therapy and will be discharged home this afternoon Review of Systems Review of Systems: All systems reviewed and are unremarkable except as noted below Physical Exam Physical Exam: Lying in bed comfortably Constitutional: + ill appearing and + thin Eyes: PERRL, conjunctivae normal, anicteric sclerae ENMT: external ear and nose normal, oropharynx normal Neck: trachea midline, no thyromegaly Respiratory: no respiratory distress Auscultation: + diminished lung sounds; no crackles and no wheezes Cardiovascular: Rate/Rhythm: regular rate and regular rhythm; not tachycardic Heart Sounds: normal S1 and normal S2; no murmur Extremities: no edema Gastrointestinal (Abdomen): Inspection/Auscultation: normal bowel sounds; abdomen not distended Percussion/Palpation: abdomen soft; abdomen nontender Musculoskeletal: No acute arthritis in any joint Neurologic: Alert, awake and oriented x3. Generally weak Psychiatric: A+Ox3, euthymic affect Lymphatic: no cervical or axillary lymphadenopathy Results & Data Results & Data ([facility]) Vital Signs (Past 12 Hours) Vital Signs Temp Pulse Resp BP Pulse Ox 09/23/21 11:15 37.6 C H 72 18 141/66 H 96 09/23/21 08:08 37.4 C 63 18 114/64 94 09/23/21 03:00 37.5 C 69 18 137/65 95 Medications Administered Current Inpatient Medications Enteral Nutritional Formula (Fibersource Hn 1.2 [place] 1000 Ml Bag) 1,000 ml GT Q24H NERY; Protocol Stop: 10/22/21 15:59 Last Admin: 09/22/21 16:14 Dose: 1,000 ml Documented by: Heparin Sodium (Porcine) (Heparin Sod 5,000 Unit/0.5 Ml Vial) 5,000 units SQ Q12 NERY Stop: 10/21/21 20:59 Last Admin: 09/23/21 09:03 Dose: 5,000 units Documented by: Ceftriaxone Sodium 1,000 mg/ (Dextrose) 60 mls @ 100 mls/hr IV DAILY@1500 NERY; Protocol Stop: 09/29/21 14:59 Last Infusion: 09/22/21 16:15 Dose: Infused Documented by: Doxycycline Hyclate 100 mg/ (Dextrose) 110 mls @ 50 mls/hr IV Q12H [facility] Stop: 09/28/21 18:59 Last Infusion: 09/23/21 12:06 Dose: Infused Documented by: Levothyroxine Sodium (Levothyroxine Sodium 112 Mcg Tablet) 112 mcg PO DAILYBB [facility] Stop: 10/22/21 06:29 Last Admin: 09/23/21 06:19 Dose: 112 mcg Documented by: Sodium Chloride (Sodium Chloride 0.65% Na Soln 45 Ml ([place])) 2 sprays NA Q4H P RN PRN Reason: Nasal Congestion Stop: 10/21/21 17:44 Sterile Water (Tube Feeding Water Flush) 125 ml GT Q4H NERY Stop: 10/22/21 12:59 Last Admin: 09/23/21 12:06 Dose: 125 ml Documented by: (1) Protein calorie malnutrition Protein-calorie malnutrition severity: severe Qualified Code(s): E43 - Unspecified severe protein-calorie malnutrition
--- NOTE | 2021-09-24 08:32 | Discharge Summary ---
Date of Service September 24, 2021 Admission HPI Per Admitting Provider Patient is 76 y/o F with PMH hypothyroidism, history of breast CA and tongue CA s/p PEG tube, severe protein calorie malnutrition presented to ER with complaint of dizziness, weakness, myalgias, chills, rhinorrhea x 2 days. Was seen at PCPs office today and reported to be confused and had noted cough. She had COVID-19 test pending from yesterday. She was referred to ER for further evaluation and treatment. Of note patient's also with symptoms of dizziness myalgias and confusion. History COVID-19 vaccine 07/22/2020, 08/12/2020, 03/16/2021. Denies N/V/D/C, [place], syncope, vision changes, neck pain, CP, otalgia, abdominal pain, paresthesias, extremity edema, rashes, urinary symptoms. Denies recent travel. In ER patient afebrile, no hypoxia. No leukocytosis. Chest x-ray with patchy interstitial and alveolar opacities bilaterally. Negative COVID-19 PCR and influenza PCR. Admission Exam Per Admitting Provider Physical Exam: General: +chronic ill appearing, in no acute distress, +thin Head: normocephalic, atraumatic Eyes: conjunctiva non-injected, anicteric ENT: normal inspection external ears, nose, mucous membranes mildly dry Neck: supple, trachea midline Lungs: clear, no respiratory distress, no wheezing/rhonchi/rales CV: RRR, + murmur, no pretibial edema Abd: normal BS, +PEG tube without surrounding erythema, soft, non-tender Ext: no cyanosis, no calf tenderness Neuro: A&O x 3, no focal deficits noted, +slurred/mumbled speech. (chronic) Skin: warm, dry Principal Diagnosis Possible pneumonia, history of tongue cancer status post PEG feeding Discharge Exam Lying in bed comfortably Constitutional + ill appearing and + thin Eyes PERRL, conjunctivae normal, anicteric sclerae ENMT external ear and nose normal, oropharynx normal Neck trachea midline, no thyromegaly Respiratory no respiratory distress Auscultation: + diminished lung sounds; no crackles and no wheezes Cardiovascular Rate/Rhythm: regular rate and regular rhythm; not tachycardic Heart Sounds: normal S1 and normal S2; no murmur Extremities: no edema Gastrointestinal (Abdomen) Inspection/Auscultation: normal bowel sounds; abdomen not distended Percussion/Palpation: abdomen soft; abdomen nontender Psychiatric A+Ox3, euthymic affect Lymphatic no cervical or axillary lymphadenopathy Discharge Data Allergies Allergy/AdvReac Type Severity Reaction Status Date / Time Penicillins Allergy Mild Verified 09/21/21 13:54 Consultations 09/21/21 14:01 ED Decision to Admit Stat Ordered Studies 09/21/21 15:04 CT head/brain wo con Stat Hospital Course (1) Pneumonia: Possible pneumonia Patient is 76 y/o F with PMH hypothyroidism, history of breast CA and tongue CA s/p PEG tube, severe protein calorie malnutrition presented to ER with complaint of dizziness, weakness, myalgias, chills, rhinorrhea x 2 days. with similar symptoms In ER patient afebrile, no hypoxia. No leukocytosis. Negative COVID-19 PCR and influenza PCR. Chest x-ray with patchy interstitial and alveolar opacities bilaterally. In ER given Rocephin Procalcitonin 0.35 Biofire pending-negative Rocephin, Doxycycline Gentle IVF CBC, BMP in am-unremarkable Remains afebrile and without any shortness of breath at rest and saturating normally on room air Remains asymptomatic without any signs and or symptoms of ongoing infection Will change antibiotics to oral cefdinir for 5 more days Has had PT evaluation and recommended home Should be discharged home this afternoon (2) Confusion: reported confusion per PCP office visit today. Currently pt A&O CT Head no acute intracranial findings UA 1+leuk esterase, 10-30 WBC, >30 epithelial, No bacteria, no nitrite Urine culture and urine tox screen pending Blood culture pending Carboxyhemoglobin WNL On Rocephin as above May be secondary to underlying illness Cleared-no more confusion (3) Tongue cancer: No acute symptoms (4) Oropharyngeal dysphagia: (5) S/P percutaneous endoscopic gastrostomy (PEG) tube placement: Continue PEG tube feeding (6) Protein calorie malnutrition: Has severe protein calorie malnutrition with a BMI of 21.1 kg per metered square History left lateral tongue carcinoma Nutrition through tube feeds. Patient reports does not take food p.o. Continue nutrition via feeding tube. Consult dietitian Continue tube feeding (7) Breast cancer: H/O Left breast CA s/p lumpectomy and sentinel lymph node biopsy, radiation and Arimidex (8) Hypothyroidism: Continue levothyroxine DVT Prophylaxis Heparin SQ DNR/DNI as per discussion with pt Follows with Dr Washington for routine care Discharge home this afternoon Total Time Total Time Spent Total Time Spent (In Minutes): 35 minutes Discharge Plan Discharge Items Patient Disposition: Home - Self-Care Reason For Visit: POSSIBLE PNEUMONIA Discharge Diagnosis: Possible pneumonia, history of tongue cancer status post PEG feeding Condition on Discharge: Fair Activity: Resume your previous activity Non-emergency contact: Primary Care Provider Call non-emergency contact if: you have any medication questions and your symp toms worsen Follow-up/Referrals: Siva Washington, [Primary Care Provider] - (Date & Time 09/29/2021 11:20 AM Provider Denise Blackman MD Department Family [facility] ) Diet: Other - See Diet Comment Diet Comment: Continue PEG tube feeding Addtl Attending Provider Instructions: Please take precautions to avoid falls Please finish the course of antibiotic Keep appointments with your healthcare provider Pending Studies at Discharge: No Stand-Alone Forms: [facility] [employer], Smoking Cessation Medications and DC Order Prescriptions: New cefdinir 250 mg/5 mL suspension for reconstitution 300 mg feeding tube BID 5 Days Qty: 60 RF: 0 Continued acetaminophen [Children's Acetaminophen] 160 mg/5 mL Liquid 640 mg PO QID PRN (Reason: Pain) RF: 0 nutritional supplement-fiber Liquid 2 ea feeding tube TID RF: 0 Changed levothyroxine 112 mcg tablet 112 mcg feeding tube QAM Qty: 0 RF: 0 Discharge Orders: Discharge Order (Routine); Ordered 09/23/21 Ordered By: Rosita Esquivel Admission Data Admit Date/Time: 09/21/21 15:16 Attending Provider: Rosita Esquivel Admit Provider: Da Torres Primary Care Provider: Siva Washington Other Providers: Da Torres Other Interventions: Discharge Summary Assessment (RN) Last Done: 09/23/21 14:10
== END 2021-09-23 14:56 | disposition home or self-care (01) | DRG 193 ==
LOC: ED 10:25 → SUATTDRO 15:16 → EDINP 15:16 → 2N 17:44

== ENCOUNTER 2023-07-18 11:09 | Inpatient (IN) ==
--- NOTE | 2023-07-18 11:18 | Emergency Department Note ---
Impression & Plan Sepsis, Aspiration pneumonia, Elevated lactic acid level, Hypotension, Elevated troponin ED Provider Note NAME: LAKESHA WYNNE AGE: 78 SEX: F : 1945 ARRIVES VIA: Ambulance INFORMANT: Patient ED PROVIDER(S): Bc Sidhu MD CHIEF COMPLAINT: Unresponsive. PLAN: Disposition: Admit MEDICAL DECISION MAKING: The patient is a pleasant 78-year-old woman with a past medical history of hypothyroidism, history of breast cancer, tongue cancer status post PEG tube, history of severe protein calorie malnutrition who presents to the emergency department via EMS accompanied by her for decreased responsiveness since yesterday where she was feeling unwell and her urged her to come to the emergency department but she declined where this morning he was unable to wake her up. For EMS and upon arrival the patient is arousable with minimal stimulation but somnolent. EMS had found the patient to have O2 saturation in the 70s initially and had suspected she may have aspirated following 100% O2 the patient's oxygen requirement was able to be weaned down to 6 L via nasal cannula and was 95%. On my evaluation the patient is ill-appearing, somnolent but arousable to touch. She is afebrile with blood pressure 90s/60s and vital signs otherwise stable. She appears cachectic and clinically dry. She has diminished breath sounds bilateral lower lung pak with underlying rhonchi. Abdomen is nontender. She has generalized weakness throughout without focal extremity weakness. EKG without overt acute ischemia. Chest x-ray demonstrates aspiration pneumonia. WBC within normal limits. H/H within limits. There is neutrophilia though with no left shift. Platelets within normal limits. VBG with pH of 7.24 with only minimally elevated pCO2 of 54. Chemistry without metabolic acidosis albeit with lactic acid of 6.3 initially. TB 1.3 with LFTs otherwise unremarkable. Initial Heifitz with troponin 129, nonspecific. Lipase not elevated. TSH within limits UA without convincing evidence of infection. CT of the chest was performed and was negative for PE but demonstrates multifocal airspace opacities consistent with pneumonia. CT of the abdomen pelvis did not demonstrate acute intra-abdominal process though basilar opacities suspicious for pne the patient's blood pressure did fluctuate monia. Additional note is made of large amount of well-formed stool within the sigmoid and rectum and following CT the patient did feel urge to have a bowel movement. The patient's blood pressure did fluctuate but was fluid responsive. She did receive 30 cc plus per kilogram of IV fluid hydration with normal saline. The patient's antibiotic treatment was initiated with empiric cefepime, Flagyl. Case was discussed with Sherri [facility] who will evaluate the patient for admission. Triage Nursing notes reviewed and agree them. Prior/external medical records reviewed Vital Signs: reviewed Differential diagnosis: Infection, dehydration, metabolic abnormality, hypo/hyperglycemia, electrolyte disturbance, anemia, hypoxia, cardiac sources, intracerebral event, toxicologic, neurologic, as well as other pathologies. ER treatment provided: See below. Diagnostics interpreted by me: ECG: Suspect sinus rhythm with PACs, 88 bpm, no overt ST elevation or depression, QTc 554, QRS 64 Cardiac Monitoring: An order for continuous cardiac monitoring was placed and demonstrated Suspect sinus rhythm with PACs, 88 bpm Laboratory studies: See below Imaging studies: See below Consultation(s): Sherri Beatty PAC with Dr. Pena [facility] hospitalist HPI: The patient is a pleasant 78-year-old woman with a past medical history of hypothyroidism, history of breast cancer, tongue cancer status post PEG tube, history of severe protein calorie malnutrition who presents to the emergency department via EMS accompanied by her for decreased responsiveness since yesterday where she was feeling unwell and her urged her to come to the emergency department but she declined where this morning he was unable to wake her up. For EMS and upon arrival the patient is arousable with minimal stimulation but somnolent. EMS had found the patient to have O2 saturation in the 70s initially and had suspected she may have aspirated following 100% O2 the patient's oxygen requirement was able to be weaned down to 6 L via nasal cannula and was 95%. ROS: See above HPI for pertinent positives & negatives. A total of 10 systems reviewed and were otherwise negative. VITALS:See Below PHYSICAL EXAMINATION: GENERAL: Awake, somnolent but alert to light touch, ill-appearing, in no distress, cachcectic. HENT: Normocephalic, atraumatic. Oropharynx with dry mucous membranes and otherwise unremarkable. EYES: Normal conjunctiva. Sclera non-icteric. NECK: Supple. No nuchal rigidity. FROM. No JVD. RESPIRATORY: Diminished breath sounds bilateral lower lung pak with underlying rhonchi. CARDIAC: Regular rate, normal rhythm. Extremities warm and well perfused. Pulses equal. ABDOMEN: Soft, non-distended. No tenderness to palpation. No rebound or guarding. No masses. RECTAL: Deferred. MUSCULOSKELETAL: Chest examination reveals no tenderness. The back is symmetrical on inspection without obvious abnormality. There is no CVA tenderness to palpation. No joint edema. LOWER EXTREMITIES: Calves are equal size bilaterally and non-tender. No edema. No discoloration. NEURO: Generalized weakness throughout without focal extremity weakness. SKIN: No jaundice noted. Erythema of the left breast without induration or warmth which occurs recurrently per . ED COURSE: Critical Care: I have personally spent greater than 75 minutes of critical care time in the direct management of this patient. This includes bedside care, interpretation of diagnostic studies, and testing, discussion with consultants, patient, and family members, and other required patient management activities. This 75 minutes is in excess of all separately billable procedures. 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" Surgical History S/P percutaneous endoscopic gastrostomy (PEG) tube placement H/O exploratory thoracotomy H/O partial mastectomy H/O endoscopy "with stricture, s/p dilation" Family History Mother Colon cancer Social History Smoking Status: Never smoker Hx Alcohol Use: No Hx Substance Use: No Preferred Language: Slovak Communication Ability: Effective Ledger Clerk Required: No Beliefs That Will Affect Care: None marital status: Current Living Situation: Spouse Other Information That Helps Us Care for You: No Feels Safe at Home: Yes Safety Concerns: Feels Safe At This Time Assistive Devices: Denture - Lower Allergies Allergies Allergy/AdvReac Type Severity Reaction Status Date / Time Penicillins Allergy Mild Verified 09/21/21 13:54 Home Meds Home Medications Medication Instructions Recorded Confirmed acetaminophen 160 mg/5 mL oral 640 mg PO QID PRN Pain 09/21/21 07/18/23 liquid (Children's Acetaminophen) nutritional supplement-fiber oral 2 ea feeding tube TID 09/21/21 07/18/23 liquid levothyroxine 100 mcg tablet 100 mcg feeding tube DAILY 07/18/23 07/18/23 Results & Data (ED) Vital Signs Vital Signs - 24 hr 07/18/23 11:22 07/18/23 11:22 07/18/23 11:22 Temperature 36.6 C 36.6 C Temperature Source Oral Oral Pulse Rate 84 84 Pulse Rate [Finger] 84 Pulse Rhythm Regular Pulse Rhythm [Finger] Regular Pulse Strength Normal Pulse Strength [Finger] Normal Respiratory Rate 24 Respiratory Effort / Characteristics Spontaneous Non-Labored Spontaneous Respiratory Depth Normal Normal Blood Pressure 90/63 L Blood Pressure [Right Arm] 90/63 L Blood Pressure Mean 72 Blood Pressure Mean [Right Arm] 72 Blood Pressure Position Sitting Blood Pressure Position [Right Arm] Sitting Pulse Oximetry 95 85 L 95 Oxygen Delivery Method Nasal Cannula Room Air Nasal Cannula Oxygen Flow Rate 0 6 Sepsis Recent Fever Within 48 Hours No Sepsis New/Unexplained Change in Mental Status N/A Sepsis Action Taken by Nursing No Action Required Oxygen Flow Rate - Titration Pulse Oximetry Post Tiitration 07/18/23 11:30 Temperature Temperature Source Pulse Rate Pulse Rate [Finger] Pulse Rhythm Pulse Rhythm [Finger] Pulse Strength Pulse Strength [Finger] Respiratory Rate Respiratory Effort / Characteristics Respiratory Depth Blood Pressure Blood Pressure [Right Arm] Blood Pressure Mean Blood Pressure Mean [Right Arm] Blood Pressure Position Blood Pressure Position [Right Arm] Pulse Oximetry 0 L Oxygen Delivery Method Room Air Nasal Cannula Oxygen Flow Rate 85 Sepsis Recent Fever Within 48 Hours Sepsis New/Unexplained Change in Mental Status Sepsis Action Taken by Nursing Oxygen Flow Rate - Titration 6 Pulse Oximetry Post Tiitration 95 Laboratory Data Attestation: I reviewed the patient's lab results. 07/18/23 11:30 07/18/23 11:30 Lab Results 07/18/23 07/18/23 07/18/23 Range/Units 11:30 11:43 11:57 WBC 8.78 (4.8-10.8) K/ul RBC 4.23 (4.20-5.40) M/uL Hgb 12.8 (12.0-16.0) g/dl Hct 40.5 (37.0-47.0) % MCV 95.7 (80.0-100.0) fL MCH 30.3 (25.0-34.0) pg MCHC 31.6 L (32.0-36.0) g/dL RDW Std Deviation 50.2 H (36.4-46.3) fL RDW Coeff of Elliot 14.4 (11.5-14.5) % Plt Count 139 (130-400) K/uL MPV 12.5 H (9.4-12.4) fL Immature Gran % (Auto) 0.3 % Neut % (Auto) 91.8 % Lymph % (Auto) 2.7 % [place] % (Auto) 5.0 % Eos % (Auto) 0.0 % Baso % (Auto) 0.2 % Neut # (Auto) 8.05 H (1.40-6.50) K/uL Lymph # (Auto) 0.24 L (1.20-3.40) K/uL [place] # (Auto) 0.44 (0.11-0.59) K/uL Eos # (Auto) 0.00 (0.00-0.50) K/uL Baso # (Auto) 0.02 (0.00-0.20) K/uL Immature Gran # (Auto) 0.03 (0.01-0.20) K/uL Dohle Bodies 1+ PT 13.3 H (9.0-12.0) Seconds INR 1.2 H (0.9-1.1) VBG pH 7.24 L (7.36-7.41) VBG pCO2 54 H (38-50) mmHg VBG pO2 31 mmHg VBG HCO3 23 mmol/L VBG O2 Saturation < 60.0 % VBG Base Excess -4.9 mEq/L Sodium 140 (136-145) mmol/L Potassium 3.9 (3.5-5.1) mmol/L Chloride 106 (98-107) mmol/L Carbon Dioxide 23 (21-32) mmol/L Anion Gap 11 (3-11) BUN 30 H (6-23) mg/dl Creatinine 0.85 (0.6-1.2) mg/dl Est Cr Clr Drug Dosing 42.4 ml/min Est GFR ( Amer) 75.5 ml/min Est GFR (Non-Af Amer) 65.2 ml/min BUN/Creatinine Ratio 35.3 H (10-20) Glucose 193 H (70-99(Fasting)) mg/dl Lactate 6.3 H* (0.4-2.0) mmol/L Calcium 8.2 L (8.6-10.3) mg/dl Phosphorus 2.8 (2.5-4.9) mg/dl Magnesium 1.8 (1.7-2.4) mg/dl Total Bilirubin 1.3 H (0.2-1.0) mg/dl AST 29 (13-39) U/L ALT 14 (7-52) U/L Alkaline Phosphatase 78 (34-104) U/L Troponin I High Sens 129.5 H* (0-14) pg/ml Total Protein 6.6 (6.0-8.3) gm/dl Albumin 3.6 (3.4-5.0) gm/dl Globulin 3.0 (2.5-4.0) gm/dl Albumin/Globulin Ratio 1.2 (0.9-2) Lipase 19 (11-82) U/L TSH 0.859 (0.300-4.500) uIu/ml Random Cortisol mcg/dl Urine Color Yellow Urine Appearance Clear (Clear) Urine pH 7.0 (4.5-7.5) Ur Specific Rocky 1.020 (1.000-1.030) Urine Protein 1+ H (Negative) Urine Glucose (UA) Negative (Negative) Urine Ketones Trace H (Negative) Urine Blood Trace-intact H (Negative) Urine Nitrite Negative (Negative) Urine Bilirubin Negative (Negative) Urine Urobilinogen Negative (Negative) Ur Leukocyte Esterase Negative (Negative) Urine RBC 0-4 (0-4) /hpf Urine WBC 0-5 (0-5) /hpf Ur Epithelial Cells 0-5 (0-5) /lpf Urine Bacteria Negative (Negative) 07/18/23 Range/Units 12:29 WBC (4.8-10.8) K/ul RBC (4.20-5.40) M/uL Hgb (12.0-16.0) g/dl Hct (37.0-47.0) % MCV (80.0-100.0) fL MCH (25.0-34.0) pg MCHC (32.0-36.0) g/dL RDW Std Deviation (36.4-46.3) fL RDW Coeff of Elliot (11.5-14.5) % Plt Count (130-400) K/uL MPV (9.4-12.4) fL Immature Gran % (Auto) % Neut % (Auto) % Lymph % (Auto) % [place] % (Auto) % Eos % (Auto) % Baso % (Auto) % Neut # (Auto) (1.40-6.50) K/uL Lymph # (Auto) (1.20-3.40) K/uL [place] # (Auto) (0.11-0.59) K/uL Eos # (Auto) (0.00-0.50) K/uL Baso # (Auto) (0.00-0.20) K/uL Immature Gran # (Auto) (0.01-0.20) K/uL Dohle Bodies PT (9.0-12.0) Seconds INR (0.9-1.1) VBG pH (7.36-7.41) VBG pCO2 (38-50) mmHg VBG pO2 mmHg VBG HCO3 mmol/L VBG O2 Saturation % VBG Base Excess mEq/L Sodium (136-145) mmol/L Potassium (3.5-5.1) mmol/L Chloride (98-107) mmol/L Carbon Dioxide (21-32) mmol/L Anion Gap (3-11) BUN (6-23) mg/dl Creatinine (0.6-1.2) mg/dl Est Cr Clr Drug Dosing ml/min Est GFR ( Amer) ml/min Est GFR (Non-Af Amer) ml/min BUN/Creatinine Ratio (10-20) Glucose (70-99(Fasting)) mg/dl Lactate (0.4-2.0) mmol/L Calcium (8.6-10.3) mg/dl Phosphorus (2.5-4.9) mg/dl Magnesium (1.7-2.4) mg/dl Total Bilirubin (0.2-1.0) mg/dl AST (13-39) U/L ALT (7-52) U/L Alkaline Phosphatase (34-104) U/L Troponin I High Sens (0-14) pg/ml Total Protein (6.0-8.3) gm/dl Albumin (3.4-5.0) gm/dl Globulin (2.5-4.0) gm/dl Albumin/Globulin Ratio (0.9-2) Lipase (11-82) U/L TSH (0.300-4.500) uIu/ml Random Cortisol 49.02 mcg/dl Urine Color Urine Appearance (Clear) Urine pH (4.5-7.5) Ur Specific Rocky (1.000-1.030) Urine Protein (Negative) Urine Glucose (UA) (Negative) Urine Ketones (Negative) Urine Blood (Negative) Urine Nitrite (Negative) Urine Bilirubin (Negative) Urine Urobilinogen (Negative) Ur Leukocyte Esterase (Negative) Urine RBC (0-4) /hpf Urine WBC (0-5) /hpf Ur Epithelial Cells (0-5) /lpf Urine Bacteria (Negative) Administered Medications Enteral Nutritional Formula (Fibersource Hn 1.2 Hector 1000 Ml Bag) 1,000 ml GT .See Protocol NERY; Protocol Stop: 08/17/23 16:44 Last Admin: 07/18/23 17:58 Dose: 1,000 ml Documented By: CIPRIANO Acetaminophen (irmev) 1,000 mg in 100 mls @ 400 mls/hr IV Q8H PRN PRN Reason: pain, fever Stop: 07/21/23 15:40 Last Infusion: 07/18/23 18:44 Dose: Infused Documented By: Admin: 07/18/23 17:57 Dose: 400 mls/hr Documented By: CIPRIANO Senna/Docusate Sodium (Docusate Sodium/Senna 50/8.6mg Tab) 1 tab PEG QAM [facility] Stop: 08/17/23 15:14 Last Admin: 07/18/23 16:38 Dose: 1 tab Documented By: CIPRIANO Sterile Water (Tube Feeding Water Flush) 100 ml GT Q4H NERY Stop: 08/17/23 16:59 Last Admin: 07/18/23 18:44 Dose: 100 ml Documented By: CIPRIANO Discontinued Medications Bisacodyl (Bisacodyl 10 Mg Supp) 10 mg VA NOW STA Stop: 07/18/23 15:42 Last Admin: 07/18/23 16:54 Dose: 10 mg Documented By: CIPRIANO Sodium Chloride (Nss) 500 mls @ 999 mls/hr IV .Q31M ONE Stop: 07/18/23 11:47 Last Infusion: 07/18/23 11:56 Dose: Infused Documented By: Admin: 07/18/23 11:30 Dose: 999 mls/hr Documented By: JUAN Sodium Chloride (Nss) 1,000 mls @ 999 mls/hr IV .Q1H1M ONE Stop: 07/18/23 13:29 Last Infusion: 07/18/23 14:47 Dose: Infused Documented By: Admin: 07/18/23 12:37 Dose: 999 mls/hr Documented By: JUAN Cefepime HCl (Maxipime) 2,000 mg in 20 mls @ 5 mls/min IV NOW STA; Protocol Stop: 07/18/23 12:36 Last Admin: 07/18/23 13:25 Dose: 5 mls/min Documented By: JUAN Metronidazole (Flagyl) 500 mg in 100 mls @ 100 mls/hr IV NOW STA; Protocol Stop: 07/18/23 13:32 Last Infusion: 07/18/23 14:48 Dose: Infused Documented By: Admin: 07/18/23 13:25 Dose: 100 mls/hr Documented By: JUAN Sodium Chloride (Nss) 500 mls @ 999 mls/hr IV .Q31M ONE Stop: 07/18/23 13:52 Last Admin: 07/18/23 15:22 Dose: Not Given Documented By: CIPRIANO Sodium Chloride (Nss) 1,000 mls @ 80 mls/hr IV .[id number] NERY Stop: 08/17/23 15:40 Last Infusion: 07/18/23 19:08 Dose: Infused Documented By: Infusion: 07/18/23 17:55 Dose: 0 mls/hr Documented By: Admin: 07/18/23 16:49 Dose: 80 mls/hr Documented By: CIPRIANO Ioversol (Optiray 350 500ml) 133 ml IV ONCE ONE Stop: 07/18/23 13:11 Last Admin: 07/18/23 13:10 Dose: 133 ml Documented By: [facility] Imaging Data Radiologist's Impression: Chest X-Ray 07/18/23 11:16 SINGLE VIEW CHEST CLINICAL HISTORY: Change in mental status FINDINGS: 2 AP, portable, upright chest radiographs are compared to study dated 05/25/2023. Correlation is made with chest CT dated 01/26/2014. The examination is degraded by portable technique and patient rotation. The patient's head partially obscures the apices. The heart is enlarged. The pulmonary vasculature is noncongested. Chronic interstitial thickening is similar to previous. Airspace consolidation is seen at the left lung base. No large pleural effusion or pneumothorax is identified. The skeletal structures are osteopenic. There are chronic/healed left-sided rib fractures. IMPRESSION: 1. Cardiomegaly without radiographic evidence of congestive failure. 2. Airspace consolidation is seen at the left lung base. Correlate clinically for evidence of pneumonia/aspiration pneumonitis. Radiographic follow-up to resolution is recommended. ACT 112: Negative or not required by law. Electronically signed by: Howie Proctor M.D. 07/18/2023 11:49 AM Abdomen/Pelvis CT 07/18/23 12:[address] WITH IV CONTRAST CT DOSE: 1392.9 mGy.cm HISTORY: sepsis, lactate 6.6 TECHNIQUE: Multiaxial CT images of the abdomen and pelvis were performed following the use of intravenous contrast. A dose lowering technique was utilized adhering to the principles of ALARA. COMPARISON STUDY: Abdomen and pelvis CT 02/17/2022. FINDINGS: Patchy bilateral lower lobe airspace opacities most pronounced on the left. This is new compared the prior study and is consistent with a pneumonia. This could be due to aspiration. No pneumoperitoneum. No pneumatosis. No acute fractures identified. The heart remains mildly enlarged. There is a small right pericardial cyst, unchanged. The percutaneous gastrostomy tube is in good position. Mild periportal edema. No hepatic masses. The main portal vein is patent. There are few small gallstones. No gallbladder wall thickening. The pancreas, spleen, and adrenal glands are unremarkable. Bilateral nephrolithiasis. No ureteral stones. No hydronephrosis. There are 2 subcentimeter hypodense lesions within the right kidney which are technically too small to characterize but favor cysts. Normal caliber abdominal aorta. No retroperitoneal or pelvic lymphadenopathy. Normal bladder. There is a pessary device seen within the vagina. Large amount well-formed stool seen within the distal colon/rectum. Minimal perirectal edema is noted. However, no definite rectal wall thickening. No bowel wall thickening or obstruction. Questionable thickening of the ascending colon is likely due to underdistention. The uterus and bilateral adnexa are unremarkable. IMPRESSION: 1. Patchy bilateral lower lobe airspace opacities most pronounced on the left. This is consistent with a pneumonia and could be due to aspiration. 2. Cholelithiasis. 3. Bilateral nephrolithiasis. No hydronephrosis. 4. No definite bowel wall thickening or obstruction. 5. Large amount well-formed stool seen within the distal sigmoid colon/rectum. There is minimal perirectal edema which could be reactive. No definite bowel wall thickening to confirm a stercoral proctitis at this time. Clinical correlation recommended. ACT 112: Negative or not required by law. Electronically signed by: Tomasz Machado M.D. 07/18/2023 1:33 PM Chest CTA 07/18/23 12:28 CT angio chest PE protocol CLINICAL HISTORY: ams, hypoxia PE TECHNIQUE: Multidetector row helical CT of the chest was performed with angiographic protocol. Coronal and sagittal reformations were obtained. Coronal and sagittal MIPS were obtained from the axial data set and were submitted for review. Automated dose lowering techniques and/or adjustment according to patient size were utilized for this exam. Comparison: Comparison is made to CT chest 01/26/2014 FINDINGS: Lungs and pleura: Multifocal airspace opacities are seen predominantly in the dependent lungs. Heart and pericardium: Cardiomegaly is seen with biatrial enlargement. Vessels: No evidence of pulmonary embolism. Mediastinum and aruna: Unremarkable. Chest wall and lower neck: Unremarkable. Abdomen: Unremarkable. Bones: Degenerative changes in the thoracic spine. IMPRESSION: 1. No pulmonary embolus. 2. Multifocal airspace opacities are seen compatible with pneumonia. Bronchial wall thickening likely reflects infectious/inflammatory airways disease. ACT 112: Negative or not required by law. Electronically signed by: Luiz Duran M.D. 07/18/2023 1:[address] 07/18/23 12:[address] DOSE: HISTORY: Altered mental status. TECHNIQUE: Multiaxial CT images of the head were performed without the use of intravenous contrast. Automated exposure control was utilized for this study. A dose lowering technique was utilized adhering to the principles of ALARA. Comparison: Head CT 09/21/2021. Findings: Mild mucosal thickening within the ethmoid air cells. The mastoid air cells are clear. No calvarial fractures. There is again noted a 14 mm slightly hyperdense extra-axial lesion within the foramen magnum abutting the posterior cervicomedullary junction. This is similar to the prior study. No hematoma, midline shift, acute infarct. Atrophy and microvascular ischemic changes are again noted. Impression: 1. No significant change compared to the prior study. No acute intracranial abnormality. 2. No significant change in the 14 mm circumscribed extra-axial mass at the foramen magnum. ACT 112: Negative or not required by law. Electronically signed by: Tomasz Machado M.D. 07/18/2023 1:25 PM Discharge Plan Visit Data Chief Complaint: Illness Stated Complaint: SEMI RESPOSIVE ED Provider: Bc Sidhu Discharge Problem: Sepsis, Aspiration pneumonia, Elevated lactic acid level, Hypotension, Elevated troponin Patient Disposition: Admitted As Inpatient Discharge Instructions Interventions: ED Discharge Assessment Last Done: 07/18/23 14:59 Discharge Problem: Sepsis Qualifiers: Sepsis type: sepsis due to unspecified organism Sepsis acute organ dysfunction status: unspecified Qualified Code(s): A41.9 - Sepsis, unspecified organism Aspiration pneumonia Qualifiers: Aspiration pneumonia type: unspecified Laterality: bilateral Lung location: l ower lobe of lung Qualified Code(s): J69.0 - Pneumonitis due to inhalation of food and vomit Hypotension Qualifiers: Hypotension type: unspecified hypotension type Qualified Code(s): I95.9 - Hypotension, unspecified
[2023-07-18] MEDS: SODIUM CHLORIDE 0.9% 500 ML IV ONE ×2 (11:30→15:22)
[2023-07-18 11:50] LABS: Hematocrit (blood only) 40.5 % (37.0-47.0); Hemoglobin 12.8 g/dl (12.0-16.0); Mean Corpuscular Hemoglobin 30.3 pg (25.0-34.0); Mean Corpuscular Hgb Conc 31.6 g/dL (32.0-36.0); Mean Corpuscular Volume 95.7 fL (80.0-100.0); Mean Platelet Volume 12.5 fL (9.4-12.4); Platelet Count 139 K/uL (130-400); RDW Coefficient of Variation 14.4 % (11.5-14.5); RDW Standard Deviation 50.2 fL (36.4-46.3); Red Blood Count 4.23 M/uL (4.20-5.40); White Blood Count 8.78 K/ul (4.8-10.8)
--- NOTE | 2023-07-18 11:50 | XRay Report ---
SINGLE VIEW CHEST CLINICAL HISTORY: Change in mental status FINDINGS: 2 AP, portable, upright chest radiographs are compared to study dated 05/25/2023. Correlatio n is made with chest CT dated 01/26/2014. The examination is degraded by portable technique and patien t rotation. The patient's head partially obscures the apices. The heart is enlarged. The pulmonary va sculature is noncongested. Chronic interstitial thickening is similar to previous. Airspace consolida tion is seen at the left lung base. No large pleural effusion or pneumothorax is identified. The skel etal structures are osteopenic. There are chronic/healed left-sided rib fractures. IMPRESSION: 1. Cardiomegaly without radiographic evidence of congestive failure. 2. Airspace consolidation is seen at the left lung base. Correlate clinically for evidence of pneumon ia/aspiration pneumonitis. Radiographic follow-up to resolution is recommended. ACT 112: Negative or not required by law. Electronically signed by: Howie Proctor M.D. 07/18/2023 11:49 AM
[2023-07-18 12:05] LABS: Albumin Globulin Ratio 1.2 (0.9-2); Albumin Level 3.6 gm/dl (3.4-5.0); BUN Creatinine Ratio 35.3 (10-20); Bilirubin,Total 1.3 mg/dl (0.2-1.0); Calcium 8.2 mg/dl (8.6-10.3); Creatinine Clr Calc Pharmacy 42.4 ml/min; Est GFR (African American) 75.5 ml/min; Est GFR (Non-African American) 65.2 ml/min; Magnesium 1.8 mg/dl (1.7-2.4); Phosphorus 2.8 mg/dl (2.5-4.9); Potassium 3.9 mmol/L (3.5-5.1); Total Protein 6.6 gm/dl (6.0-8.3)
[2023-07-18 12:08] LABS: Appearance Urine Clear (Clear); Bilirubin Urine Negative (Negative); Blood Urine Trace-intact (Negative); Color Urine Yellow; Glucose Urine UA Negative (Negative); Ketones Urine Trace (Negative); Leukocyte Esterase Urine Negative (Negative); Nitrite Urine Negative (Negative); Protein Urine 1+ (Negative); Urobilinogen Urine Negative (Negative)
[2023-07-18 12:10] LABS: Basophils # (auto) 0.02 K/uL (0.00-0.20); Basophils % (auto) 0.2 %; Dohle Bodies 1+; Immature Granulocytes # (auto) 0.03 K/uL (0.01-0.20); Immature Granulocytes % (auto) 0.3 %; Lymphocytes # (auto) 0.24 K/uL (1.20-3.40); Lymphocytes % (auto) 2.7 %; Monocytes # (auto) 0.44 K/uL (0.11-0.59); Neutrophils # (auto) 8.05 K/uL (1.40-6.50); Neutrophils % (auto) 91.8 %
[2023-07-18 12:11] LABS: Base Excess VBG -4.9 mEq/L; HCO3 VBG 23 mmol/L; Oxygen Saturation VBG < 60.0 %; PCO2 VBG 54 mmHg (38-50); PO2 VBG 31 mmHg; pH VBG 7.24 (7.36-7.41)
[2023-07-18 12:13] LABS: INR 1.2 (0.9-1.1); Prothrombin Time 13.3 Seconds (9.0-12.0)
[2023-07-18 12:19] LABS: Thyroid Stimulating Hormone 0.859 uIu/ml (0.300-4.500)
[2023-07-18 12:23] LABS: Troponin I High Sensitivity 129.5 pg/ml (0-14)
[2023-07-18 12:23] LABS: Bacteria Urine Negative (Negative); Epithelial Cell Urine 0-5 /lpf (0-5); RBC Urine 0-4 /hpf (0-4); WBC Urine 0-5 /hpf (0-5)
[2023-07-18] MEDS: SODIUM CHLORIDE 0.9% 1,000 ML IV ONE (12:37)
[2023-07-18] MEDS: OPTIRAY 350 500ml IV ONE (13:10)
[2023-07-18] MEDS: CEFEPIME 2,000 MG/20 ML VIAL IV STA (13:25)
[2023-07-18] MEDS: metroNIDAZOLE 500 MG/100 ML BAG IV STA (13:25)
[2023-07-18 13:26] LABS: Adenovirus PCR Not Detected (NotDetected); Bordetella parapertussis PCR Not Detected (NotDetected); Bordetella pertussis PCR Not Detected (NotDetected); Chlamydia pneumoniae PCR Not Detected (NotDetected); Coronavirus 229E PCR Not Detected (NotDetected); Coronavirus CoV-2 (COVID19)PCR Not Detected (NotDetected); Coronavirus HKU1 PCR Not Detected (NotDetected); Coronavirus NL63 PCR Not Detected (NotDetected); Coronavirus OC43PCR Not Detected (NotDetected); Human Metapneumovirus PCR Not Detected (NotDetected); Influenza A PCR Not Detected (NotDetected); Influenza B PCR Not Detected (NotDetected); Mycoplasma pneumoniae PCR Not Detected (NotDetected); Parainfluenza Virus 1 PCR Not Detected (NotDetected); Parainfluenza Virus 2 PCR Not Detected (NotDetected); Parainfluenza Virus 3 PCR Not Detected (NotDetected); Parainfluenza Virus 4 PCR Not Detected (NotDetected); Respiratory Syncytial VirusPCR Not Detected (NotDetected); Rhinovirus/Enterovirus PCR Not Detected (NotDetected)
--- NOTE | 2023-07-18 13:26 | CT Scan Report ---
HEAD CT NONCONTRAST CT DOSE: HISTORY: Altered mental status. TECHNIQUE: Multiaxial CT images of the head were performed without the use of intravenous contrast. A utomated exposure control was utilized for this study. A dose lowering technique was utilized adheri ng to the principles of ALARA. Comparison: Head CT 09/21/2021. Findings: Mild mucosal thickening within the ethmoid air cells. The mastoid air cells are clear. No c alvarial fractures. There is again noted a 14 mm slightly hyperdense extra-axial lesion within the fo ramen magnum abutting the posterior cervicomedullary junction. This is similar to the prior study. No hematoma, midline shift, acute infarct. Atrophy and microvascular ischemic changes are again noted. Impression: 1. No significant change compared to the prior study. No acute intracranial abnormality. 2. No significant change in the 14 mm circumscribed extra-axial mass at the foramen magnum. ACT 112: Negative or not required by law. Electronically signed by: Tomasz Machado M.D. 07/18/2023 1:25 PM
--- NOTE | 2023-07-18 13:30 | CT Scan Report ---
CT angio chest PE protocol CLINICAL HISTORY: ams, hypoxia PE TECHNIQUE: Multidetector row helical CT of the chest was performed with angiographic protocol. Villegas l and sagittal reformations were obtained. Coronal and sagittal MIPS were obtained from the axial claire a set and were submitted for review. Automated dose lowering techniques and/or adjustment according to patient size were utilized for this exam. Comparison: Comparison is made to CT chest 01/26/2014 FINDINGS: Lungs and pleura: Multifocal airspace opacities are seen predominantly in the dependent lungs. Heart and pericardium: Cardiomegaly is seen with biatrial enlargement. Vessels: No evidence of pulmonary embolism. Mediastinum and aruna: Unremarkable. Chest wall and lower neck: Unremarkable. Abdomen: Unremarkable. Bones: Degenerative changes in the thoracic spine. IMPRESSION: 1. No pulmonary embolus. 2. Multifocal airspace opacities are seen compatible with pneumonia. Bronchial wall thickening likel y reflects infectious/inflammatory airways disease. ACT 112: Negative or not required by law. Electronically signed by: Luiz Duran M.D. 07/18/2023 1:28 PM
--- NOTE | 2023-07-18 13:34 | CT Scan Report ---
ABDOMEN AND PELVIS CT WITH IV CONTRAST CT DOSE: 1392.9 mGy.cm HISTORY: sepsis, lactate 6.6 TECHNIQUE: Multiaxial CT images of the abdomen and pelvis were performed following the use of intrave nous contrast. A dose lowering technique was utilized adhering to the principles of ALARA. COMPARISON STUDY: Abdomen and pelvis CT 02/17/2022. FINDINGS: Patchy bilateral lower lobe airspace opacities most pronounced on the left. This is new com pared the prior study and is consistent with a pneumonia. This could be due to aspiration. No pneumop eritoneum. No pneumatosis. No acute fractures identified. The heart remains mildly enlarged. There is a small right pericardial cyst, unchanged. The percutaneous gastrostomy tube is in good position. Mi ld periportal edema. No hepatic masses. The main portal vein is patent. There are few small gallstone s. No gallbladder wall thickening. The pancreas, spleen, and adrenal glands are unremarkable. Bilater al nephrolithiasis. No ureteral stones. No hydronephrosis. There are 2 subcentimeter hypodense lesion s within the right kidney which are technically too small to characterize but favor cysts. Normal shannon iber abdominal aorta. No retroperitoneal or pelvic lymphadenopathy. Normal bladder. There is a pessar y device seen within the vagina. Large amount well-formed stool seen within the distal colon/rectum. Minimal perirectal edema is noted. However, no definite rectal wall thickening. No bowel wall thicken ing or obstruction. Questionable thickening of the ascending colon is likely due to underdistention. The uterus and bilateral adnexa are unremarkable. IMPRESSION: 1. Patchy bilateral lower lobe airspace opacities most pronounced on the left. This is consistent wit h a pneumonia and could be due to aspiration. 2. Cholelithiasis. 3. Bilateral nephrolithiasis. No hydronephrosis. 4. No definite bowel wall thickening or obstruction. 5. Large amount well-formed stool seen within the distal sigmoid colon/rectum. There is minimal perir ectal edema which could be reactive. No definite bowel wall thickening to confirm a stercoral proctit is at this time. Clinical correlation recommended. ACT 112: Negative or not required by law. Electronically signed by: Tomasz Machado M.D. 07/18/2023 1:33 PM
--- NOTE | 2023-07-18 13:52 | History & Physical Report ---
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 Severe sepsis Acute hypoxic respiratory failure Aspiration pneumonia Acute mastitis of left breast Lactic acidosis Metabolic encephalopathy Respiratory acidosis Admit to PCU Blood cultures are pending, urine negative for infection Chest CT concerning for Multifocal airspace opacities compatible with pneumonia Continue broad-spectrum IV antibiotics with cefepime and Flagyl Pulmonary toilet with hypertonic saline, flutter valve, incentive spirometry Lactic acid is downtrending, continue IV fluid NS at 80 cc/h and will continue to monitor lactic At time of admission she does appear to be adequately resuscitated from a volume standpoint - she received the approp 30ml/kg in ED L breast mastitis Hx of L breast Ca continue IV antibiotics had episode in March as well recommend OP mammogram Elevated troponin Patient without chest pain, repeat EKG Cycle troponins Last echocardiogram 12/2022 revealed a preserved EF with mild MR/TR If troponin significantly increases will obtain echocardiogram, but otherwise suspect this is all likely secondary to severe sepsis and type II demand ischemia Hx of SCC of tongue S/p PEG tube NPO consult pals nurse continue home feeding regimen Hypothyroidism Chronic, stable Continue levothyroxine Constipation CT a/p reveals Large amount well-formed stool seen within the distal sigmoid colon/rectum. will trial Bisacodyl [place] suppos will add stool softener DVT prophylaxis: Heparin DNR/DNI Dispo: PCU Pt was seen and examined in collaboration with Dr. Pena, please see addendum A total of 76 minutes was spent coordinating, documenting, and providing care for this patient excluding time spent in the performance of separately billed services. This included personally viewing all current laboratories and imaging studies, medication reconciliation, outpatient chart review, and discussion with specialists. History of Present Illness Chief Complaint: Weakness and altered mental status x 2 days. 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 is at bedside who also helps elicit history. reports over the last few days she overall did not feel well. She has been complaining of left breast discomfort a few days ago. noticed last night she was becoming more confused and this morning was significantly weak to the point she was unable to get out of bed. He summoned EMS. There has been no known sick contacts. She also has been complaining of neck pain. At baseline due to prior history of lung cancer she does have difficulty with speech. There is no reported fever at home. She has been experiencing a cough and has been has noticed, "rattles." She takes nothing by mouth since history of tongue cancer. Medications are utilized via PEG tube as well as she receives nutrition via PEG tube. In ED patient met criteria for severe sepsis. She was hypotensive, tachycardic and hypoxic requiring supplemental oxygen via nasal cannula. She received the appropriate fluid resuscitation with 30ml/kG with improvement in her blood pressures. Her initial lactic acid was 6.4, troponin 129.5 and VBG revealed a respiratory acidosis. She received broad-spectrum IV antibiotics with cefepime and Flagyl. 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 follows with [place] neurosurgery" GERD (gastroesophageal reflux disease) Osteoporosis Hypothyroidism Dyslipidemia Sarcoidosis "s/p lung biopsy" Breast cancer "s/p lumpectomy and node dissection in 2004, radiation completed 2005, chemo [id number]" Tongue cancer "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" Surgical History S/P percutaneous endoscopic gastrostomy (PEG) tube placement H/O exploratory thoracotomy H/O partial mastectomy H/O endoscopy "with stricture, s/p dilation" Family History Mother Colon cancer Social History Smoking Status: Never smoker Hx Alcohol Use: No Hx Substance Use: No Preferred Language: Gambian Communication Ability: Effective Supervisor Paper Coating Required: No Beliefs That Will Affect Care: None marital status: Current Living Situation: Spouse Other Information That Helps Us Care for You: No Feels Safe at Home: Yes Safety Concerns: Feels Safe At This Time Assistive Devices: Denture - Lower Review of Systems Review of Systems: All systems reviewed & are unremarkable except as noted in HPI & below Physical Exam Physical Exam: please refer to Dr. Pena addendum for physical exam findings. Results & Data Results & Data Vital Signs (Past 12 Hours) Vital Signs Temp Pulse Pulse Resp BP BP Pulse Ox 07/18/23 11:30 0 L 07/18/23 11:22 36.6 C 84 24 90/63 L 95 07/18/23 11:22 84 24 85 L 07/18/23 11:22 36.6 C 84 24 90/63 L 95 O2 Del Method O2 Flow Rate 07/18/23 11:30 Room Air, Nasal Cannula 85 07/18/23 11:22 Nasal Cannula 6 07/18/23 11:22 Room Air 0 07/18/23 11:22 Nasal Cannula Laboratory Results I have independently reviewed and interpreted patient's admitting labs including CBC, CMP, PT/INR, mag, VBG,Lactate and troponin. Diagnostic Findings Chest X-Ray 07/18/23 11:16 SINGLE VIEW CHEST CLINICAL HISTORY: Change in mental status FINDINGS: 2 AP, portable, upright chest radiographs are compared to study dated 05/25/2023. Correlation is made with chest CT dated 01/26/2014. The examination is degraded by portable technique and patient rotation. The patient's head partially obscures the apices. The heart is enlarged. The pulmonary vasculature is noncongested. Chronic interstitial thickening is similar to previous. Airspace consolidation is seen at the left lung base. No large pleural effusion or pneumothorax is identified. The skeletal structures are osteopenic. There are chronic/healed left-sided rib fractures. IMPRESSION: 1. Cardiomegaly without radiographic evidence of congestive failure. 2. Airspace consolidation is seen at the left lung base. Correlate clinically for evidence of pneumonia/aspiration pneumonitis. Radiographic follow-up to resolution is recommended. ACT 112: Negative or not required by law. Electronically signed by: Howie Proctor M.D. 07/18/2023 11:49 AM Abdomen/Pelvis CT 07/18/23 12:[address] WITH IV CONTRAST CT DOSE: 1392.9 mGy.cm HISTORY: sepsis, lactate 6.6 TECHNIQUE: Multiaxial CT images of the abdomen and pelvis were performed following the use of intravenous contrast. A dose lowering technique was utilized adhering to the principles of ALARA. COMPARISON STUDY: Abdomen and pelvis CT 02/17/2022. FINDINGS: Patchy bilateral lower lobe airspace opacities most pronounced on the left. This is new compared the prior study and is consistent with a pneumonia. This could be due to aspiration. No pneumoperitoneum. No pneumatosis. No acute fractures identified. The heart remains mildly enlarged. There is a small right pericardial cyst, unchanged. The percutaneous gastrostomy tube is in good position. Mild periportal edema. No hepatic masses. The main portal vein is patent. There are few small gallstones. No gallbladder wall thickening. The pancreas, spleen, and adrenal glands are unremarkable. Bilateral nephrolithiasis. No ureteral stones. No hydronephrosis. There are 2 subcentimeter hypodense lesions within the right kidney which are technically too small to characterize but favor cysts. Normal caliber abdominal aorta. No retroperitoneal or pelvic lymphadenopathy. Normal bladder. There is a pessary device seen within the vagina. Large amount well-formed stool seen within the distal colon/rectum. Minimal perirectal edema is noted. However, no definite rectal wall thickening. No bowel wall thickening or obstruction. Questionable thickening of the ascending colon is likely due to underdistention. The uterus and bilateral adnexa are unremarkable. IMPRESSION: 1. Patchy bilateral lower lobe airspace opacities most pronounced on the left. This is consistent with a pneumonia and could be due to aspiration. 2. Cholelithiasis. 3. Bilateral nephrolithiasis. No hydronephrosis. 4. No definite bowel wall thickening or obstruction. 5. Large amount well-formed stool seen within the distal sigmoid colon/rectum. There is minimal perirectal edema which could be reactive. No definite bowel wall thickening to confirm a stercoral proctitis at this time. Clinical correlation recommended. ACT 112: Negative or not required by law. Electronically signed by: Tomasz Machado M.D. 07/18/2023 1:33 PM Chest CTA 07/18/23 12:28 CT angio chest PE protocol CLINICAL HISTORY: ams, hypoxia PE TECHNIQUE: Multidetector row helical CT of the chest was performed with angiographic protocol. Coronal and sagittal reformations were obtained. Coronal and sagittal MIPS were obtained from the axial data set and were submitted for review. Automated dose lowering techniques and/or adjustment according to patient size were utilized for this exam. Comparison: Comparison is made to CT chest 01/26/2014 FINDINGS: Lungs and pleura: Multifocal airspace opacities are seen predominantly in the dependent lungs. Heart and pericardium: Cardiomegaly is seen with biatrial enlargement. Vessels: No evidence of pulmonary embolism. Mediastinum and aruna: Unremarkable. Chest wall and lower neck: Unremarkable. Abdomen: Unremarkable. Bones: Degenerative changes in the thoracic spine. IMPRESSION: 1. No pulmonary embolus. 2. Multifocal airspace opacities are seen compatible with pneumonia. Bronchial wall thickening likely reflects infectious/inflammatory airways disease. ACT 112: Negative or not required by law. Electronically signed by: Luiz Duran M.D. 07/18/2023 1:[address] 07/18/23 12:[address] DOSE: HISTORY: Altered mental status. TECHNIQUE: Multiaxial CT images of the head were performed without the use of intravenous contrast. Automated exposure control was utilized for this study. A dose lowering technique was utilized adhering to the principles of ALARA. Comparison: Head CT 09/21/2021. Findings: Mild mucosal thickening within the ethmoid air cells. The mastoid air cells are clear. No calvarial fractures. There is again noted a 14 mm slightly hyperdense extra-axial lesion within the foramen magnum abutting the posterior cervicomedullary junction. This is similar to the prior study. No hematoma, midline shift, acute infarct. Atrophy and microvascular ischemic changes are again noted. Impression: 1. No significant change compared to the prior study. No acute intracranial abnormality. 2. No significant change in the 14 mm circumscribed extra-axial mass at the foramen magnum. ACT 112: Negative or not required by law. Electronically signed by: Tomasz Machado M.D. 07/18/2023 1:25 PM Medications Administered Medication List Discontinued Medications Sodium Chloride (Nss) 500 mls @ 999 mls/hr IV .Q31M ONE Stop: 07/18/23 11:47 Last Infusion: 07/18/23 11:56 Dose: Infused Documented By: Admin: 07/18/23 11:30 Dose: 999 mls/hr Documented By: JUAN Sodium Chloride (Nss) 1,000 mls @ 999 mls/hr IV .Q1H1M ONE Stop: 07/18/23 13:29 Last Admin: 07/18/23 12:37 Dose: 999 mls/hr Documented By: JUAN Cefepime HCl (Maxipime) 2,000 mg in 20 mls @ 5 mls/min IV NOW STA; Protocol Stop: 07/18/23 12:36 Last Admin: 07/18/23 13:25 Dose: 5 mls/min Documented By: JUAN Metronidazole (Flagyl) 500 mg in 100 mls @ 100 mls/hr IV NOW STA; Protocol Stop: 07/18/23 13:32 Last Admin: 07/18/23 13:25 Dose: 100 mls/hr Documented By: JUAN Ioversol (Optiray 350 500ml) 133 ml IV ONCE ONE Stop: 07/18/23 13:11 Last Admin: 07/18/23 13:10 Dose: 133 ml Documented By: ADRIA ECG Additional Comments: Initial ecg was reviewed; however poor quality and will be repeated COVID-19 Results Results COVID-19 Adm Lab Results: RBC 4.23 M/uL (4.20-5.40) 07/18/23 WBC 8.78 K/ul (4.8-10.8) 07/18/23 Hgb 12.8 g/dl (12.0-16.0) 07/18/23 Hct 40.5 % (37.0-47.0) 07/18/23 Neutrophils (%) (Auto) 91.8 % 07/18/23 Lymphocytes (%) (Auto) 2.7 % 07/18/23 Monocytes # (Auto) 0.44 K/uL (0.11-0.59) 07/18/23 Eosinophils # (Auto) 0.00 K/uL (0.00-0.50) 07/18/23 Immature Granulocyte % (Auto) 0.3 % 07/18/23 Neutrophils # (Auto) 8.05 K/uL (1.40-6.50) H 07/18/23 Lymphocytes # (Auto) 0.24 K/uL (1.20-3.40) L 07/18/23 Monocytes # (Auto) 0.44 K/uL (0.11-0.59) 07/18/23 Eosinophils # (Auto) 0.00 K/uL (0.00-0.50) 07/18/23 Basophils # (Auto) 0.02 K/uL (0.00-0.20) 07/18/23 Immature Granulocyte # (Auto) 0.03 K/uL (0.01-0.20) 4 Dohle Bodies 1+ 07/18/23 Na 140 mmol/L (136-145) 07/18/23 K 3.9 mmol/L (3.5-5.1) 07/18/23 Cl 106 mmol/L (98-107) 07/18/23 CO2 23 mmol/L (21-32) 07/18/23 Anion Gap 11 (3-11) 07/18/23 BUN 30 mg/dl (6-23) H 07/18/23 Creatinine 0.85 mg/dl (0.6-1.2) 07/18/23 BUN/Creatinine Ratio 35.3 (10-20) H 07/18/23 Glucose Level 193 mg/dl (70-99(Fasting)) H 07/18/23 Ca 8.2 mg/dl (8.6-10.3) L 07/18/23 Phosphorus Level 2.8 mg/dl (2.5-4.9) 07/18/23 Total Bilirubin 1.3 mg/dl (0.2-1.0) H 07/18/23 AST/SGOT 29 U/L (13-39) 07/18/23 ALT/SGPT 14 U/L (7-52) 07/18/23 Alkaline Phosphatase 78 U/L (34-104) 07/18/23 Total Protein 6.6 gm/dl (6.0-8.3) 07/18/23 Albumin 3.6 gm/dl (3.4-5.0) 07/18/23 Globulin 3.0 gm/dl (2.5-4.0) 07/18/23 Albumin/Globulin Ratio 1.2 (0.9-2) 07/18/23 INR 1.2 (0.9-1.1) H 07/18/23 Adenovirus (PCR) Not Detected (NotDetected) 07/18/23 B. parapertussis DNA (PCR) Not Detected (NotDetected) 06/29 B. pertussis DNA (PCR) Not Detected (NotDetected) 07/18/23 C. pneumoniae DNA (PCR) Not Detected (NotDetected) 4 Coronavirus Type OC43 (PCR) Not Detected (NotDetected) Coronavirus Type HKU1 (PCR) Not Detected (NotDetected) Coronavirus Type 229E (PCR) Not Detected (NotDetected) COVID-19 PCR Not Detected (NotDetected) 07/18/23 Coronavirus Type NL63 (PCR) Not Detected (NotDetected) Human Metapneumovirus (PCR) Not Detected (NotDetected) Influenza Virus Type A (PCR) Not Detected (NotDetected) Influenza Virus Type B (PCR) Not Detected (NotDetected) M. pneumoniae (PCR) Not Detected (NotDetected) 07/18/23 Parainfluenza Type 1 (PCR) Not Detected (NotDetected) 06/29 Parainfluenza Type 2 (PCR) Not Detected (NotDetected) 06/29 Parainfluenza Type 3 (PCR) Not Detected (NotDetected) 06/29 Parainfluenza Type 4 (PCR) Not Detected (NotDetected) 06/29 RSV (PCR) Not Detected (NotDetected) 07/18/23 Enterovirus/Rhinovirus (PCR) Not Detected (NotDetected) Chest X-Ray 07/18/23 Code Status & VTE Plan Code Status DNR/DNI VTE Prophylaxis Plan VTE Prophylaxis will be ordered: Yes Supervising Physician Co-Signing Physician Notes I have seen and discussed the case with the collaborating advanced practitioner. I agree with the above H&P. I have reviewed and confirmed the patients medical history, the findings on physical examination, and the patients diagnosis and treatment plan with Charlie HOFFMAN and agree with the information documented. In short, Ms. 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 Patient also with left breast mastitis. states patient is usually very active, no assistive devices required. Reports noting breast tenderness 24 hours prior to arrival, then notably lethargic in the evening. Patient is very dysarthric 2/2 history of esophageal carcinoma/radiation. She does not take any thing by mouth. She reports feeling somewhat congested, and feels like she has mucus to clear. GENERAL APPEARANCE: AxOx2-3, ill appearing woman, lethargic HEENT: NC, AT. dry mucous membranes. EOMI, restricted movement of mandible NECK: Supple without lymphadenopathy. No stiffness or restricted ROM. HEART: Normal rate and regular rhythm, difficult to appreciate 2/2 rhonchi LUNGS: notable rhonchi on exam ABDOMEN: Soft, nontender, nondistended with good bowel sounds heard. BACK: No CVAT, no obvious deformity. EXTREMITIES: Without cyanosis, clubbing or edema. NEUROLOGICAL: Grossly nonfocal. Alert and oriented, moving all 4 extremities. CN not formally tested but appear grossly intact. Skin: Warm and dry without any rash. Imaging revealed No pulmonary embolus. Multifocal airspace opacities are seen compatible with pneumonia. Bronchial wall thickening likely reflects infectious/inflammatory airways disease. Patchy bilateral lower lobe airspace opacities most pronounced on the left. This is consistent with a pneumonia and could be due to aspiration. Cholelithiasis. Bilateral nephrolithiasis. No hydronephrosis. No definite bowel wall thickening or obstruction. Large amount well-formed stool seen within the distal sigmoid colon/rectum. There is minimal perirectal edema which could be reactive. No definite bowel wall thickening to confirm a stercoral proctitis at this time. Clinical correlation recommended. #Sepsis, multifactorial #Acute hypoxic respiratory failure, c/f developing pneumonia #Left breast mastitis -Left breast erythema and swelling x 24 hours, history of mastitis; breast exam without nodularity, firmness and erythema noted around nipple in predominately medial quadrants c/w prior episode -CT with large stool burden, ?stercoral proctitis, cholelithiasis, nephrolithiasis -Renal function stable, LFTS wnl, no localizing symptoms -Exam with notable rhonchi -Continue broad spectrum abx, MRSA nares-deescalate vanc if negative -covers pna and mastitis -Biofire negative -Follow cultures -hypertonic nebs and pulm toilet for clearance Rest of plan as above I spent a total of 35 minutes coordinating, documenting, and providing care for this patient excluding time spent in the performance of separately billed services. All of the aforementioned completed outside of collaborating with the assigned advanced practitioner for a full treatment plan. I have reviewed the advanced practitioner's documentation, and I agree with, and take responsibility for the plan of care
[2023-07-18] MEDS ORDERED: MAGNESIUM HYDROXIDE SUSP 30 ML UDC PO PRN (15:41)
[2023-07-18] MEDS: DOCUSATE SODIUM/SENNA 50/8.6MG TAB PEG SCH (16:38)
[2023-07-18] MEDS: SODIUM CHLORIDE 0.9% 1,000 ML IV SCH (16:49)
[2023-07-18] MEDS: bisacodyL 10 MG SUPP PR STA (16:54)
--- NOTE | 2023-07-18 16:55 | Electrocardiogram Report ---
Test Reason : Blood Pressure : / mmHG Vent. Rate : 079 BPM Atrial Rate : 079 BPM P-R Int : 290 ms QRS Dur : 088 ms QT Int : 438 ms P-R-T Axes : 091 -45 033 degrees QTc Int : 502 ms Sinus rhythm with 1st degree A-V block with Premature atrial complexes Left anterior fascicular block Cannot rule out Inferior infarct (cited on or before 18-JUL-2023) Abnormal ECG When compared with ECG of 18-JUL-2023 11:21, (unconfirmed) Sinus rhythm has replaced Atrial fibrillation QRS duration has increased Criteria for Anterior infarct are no longer Present Confirmed by Topher Leblanc ([id number]) on 07/18/2023 4:54:50 PM Referred By: REFERRED SELF Confirmed By:Dimitry Leblanc
[2023-07-18] MEDS: ACETAMINOPHEN 1,000 MG/100 ML VIAL IV PRN (17:57)
[2023-07-18] MEDS: FIBERSOURCE HN 1.2 CAL 1000 ML BAG GT SCH (17:58)
[2023-07-18] MEDS: TUBE FEEDING WATER FLUSH GT SCH (18:44)
[2023-07-18] MEDS: SODIUM CHLOR 7% 4 ML NEB NEB SCH (19:55)
[2023-07-18] MEDS: CEFEPIME 2,000 MG in SYRINGE 0 ML IV SCH (20:25)
[2023-07-18] MEDS: guaiFENesin SUGAR FREE 100 MG/5 ML UDC GT SCH (20:28)
[2023-07-18] MEDS: HEPARIN SOD 5,000 UNIT/0.5 ML VIAL SQ SCH (20:29)
[2023-07-18] MEDS: metroNIDAZOLE 500 MG/100 ML BAG IV SCH (20:29)
[2023-07-18] MEDS ORDERED: NON-FORMULARY MEDICATION (Nutritional Supplement-Fiber Liquid) feeding tube SCH (21:00)
--- OUTSIDE RECORDS SUMMARY | 2023-07-18 23:39 | External Medical Summary | Summary of Care ---
Author Name Unknown Organization [facility] Address [address] [place] [address] Phone [phone] Care Team Providers Care Manager Of Internal Name Role Phone Foster Zuniga MD Primary Care Provider [phone] Reason for Visit * Reason Onset Date Comments Medication Pre-auth 06/27/2023 Prolia Encounter Details Date Type Department Care Team (Late st Contact Info) Description 06/27/2023 Telephone Rheumatology [facility] [address] [place] [address] Cr Gill PA-C [address] [place] [address] Medication Pre-auth (Prolia) Allergies Active Allergy Reactions Criticality Noted Date Comments Penicillins 10/25/1999 rash and given shot as a child, has tolerated augmentin ok as well as cephalosporin documented as of this encounter (statuses as of 07/10/2023) Medications Medication Sig Dispensed Refills Start Date End Date Status Acetaminophen Childrens 160 MG/5ML Oral Solution Administer into feeding tube 640 mg 4 times a day as needed for Pain. 0 Active Fibersource HN Oral LiquidIndications:Sev ere protein-calorie malnutrition (HCC) Administer 6 cans daily as directed via G tube via bolus syringe 35964 mL 11 08/17/2022 Active Levothyroxine Sodium 100 MCG Oral Tablet (Levoxyl)Indications: Acquired hypothyroidism Take 1 Tablet by mouth in the morning. (at least 30 min prior to breakfast or other meds). 30 Tablet 5 05/14/2023 Active Hospital, Clinic, or Other Facility Administered Medication Ordered Dose Route Frequency Start Date End Date Status Denosumab (Prolia) subcut inj 60 mgIndications:Age-related osteoporosis without current pathological fracture 60 mg SC ONCE 07/11/2023 07/12/2023 Active documented as of this encounter (statuses as of 07/10/2023) Active Problems Problem Noted Date Diagnosed Date Acute mastitis 05/25/2023 OAB (overactive bladder) 05/13/2023 Kidney stones 10/12/2022 Thoracic degenerative disc disease 10/12/2022 Age-related osteoporosis wit hout current pathological fracture 02/15/2021 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 documented as of this encounter (statuses as of 07/10/2023) Resolved Problems Problem Noted Date Diagnosed Date Resolved Date BMI less than 19,adult 05/13/202305/14 Medical home patient encounter 12/01/2022 04/16/2023 Chronic right flank pain 10/12/2022 Dysarthria 10/12/2022 04/16/2023 Upper respiratory tract infection 09/27/2022 04/16/2023 Pain around PEG tube site, initial encounter 3 04/16/2023 Bacterial pneumonia 09/30/2021 10/01/19 22 Severe protein-calorie malnutrition 06/04/2019 02/15/2021 Peripheral vascular disease 07/22/2018 01/05/2022 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 Family history of colon cancer 03/08/2001 02/06/2017 DIFFUS CYSTIC MASTOPATHY 03/08/200101/2017 HYPOTHYROIDISM NOS 6 Esophageal stricture 023 documented as of this encounter (statuses as of 07/10/2023) Immunizations Name Administration Dates Next Due COVID-19 mRNA, LNP-s, No Pre serve, 2-Dose Series ([employer] 03/16/2021,08/12/2020,07/22/2020 Covid-19, Mrna, Lnp-s, Pf, B ivalent, 30 Mcg, IM, 12 yrs and above (Pfizer) 02/24/2022 Pneumococcal Conjugate Vacc, 13 Valent (Prevnar) 04/15/2018 Pneumococcal Polysaccharide PPV23 (Pneumovax) 06/25/2018,02/03/2014 Season Influenza, Quad, PF, Adjuvanted, 65+ Yrs, IM (FLUAD) 01/12/2020 Seasonal Influenza, Quadriva lent Hd (Fluzone Hd) 03/12/2023,01/05/2022,02/15/2021 Seasonal Influenza, Split, I IV3, With Preserve, Inj 03/14/2006 Seasonal Influenza, Trivalen t, Adjuvanted, 65+ yrs 01/17/2019 TDAP (age 10 and older)(Boostrix) 10/24/2022 TDAP (age 11 and older)(Adacel) 03/14/2006 documented as of this encounter Social History Tobacco Use Types Packs/Day Years Used Date Smoking Tobacco: Never Smokeless Tobacco: Never Alcohol Use Standard Drinks/Week Comments No 0 (1 standard drink = 0.6 oz pur e alcohol) PHQ-2 Answer Date Recorded PHQ Adult Total Score 0 01/05/2022 Hunger Vital Sign Answer Date Recorded Within the past 12 months, y ou worried that your food would run out before you got the money to buy more. Never true 12/01/19 23 Within the past 12 months, t he food you bought just didn't last and you didn't have money to get more. Never true 11/30/2022 Sex and Gender Information Value Date Recorded Sex Assigned at Not on file Gender Identity Not on file Sexual Orientation Not on file Job Start Date Occupation Industry Not on file Not on file Not on file documented as of this encounter Functional Status Functional Status Response Date of Assess ment Are you deaf or do you have serious difficulty h earing? No 02/22/2015 Are you blind or do you have serious difficulty seeing, even when wearing glasses? No 02/22/2015 Do you have serious difficul ty walking or climbing stairs? (5 years old or older) No 02/22/2015 Do you have difficulty dress ing or bathing? (5 years old or older) No 02/22/2015 Because of a physical, menta l, or emotional condition, do you have difficulty doing errands alone such as visiting a doctor s office or shopping? (15 years old or older) No 02/23/20 15 Cognitive Status Response Date of Assessm ent Because of a physical, menta l, or emotional condition, do you have serious difficulty concentrating, remembering, or making decisions? (5 years old or older) No 02/22/2015 documented as of this encounter Miscellaneous Notes * Telephone Encounter - Mckenzie Ruiz LPN - 07/10/2023 10:36 AM EDT Chart reviewed and labs noted to be within normal limits. Patient has been seen within the last 12 months by a Rheumatology provider. Prolia authorization approved and updated in referral. Last injection has been > 6 months and 1 day. CAM orders pended for signature. * Telephone Encounter - Grace Martin OSA - 06/28/2023 6:14 AM EST SEE REFERRAL MESSAGE * Telephone Encounter - Cr Gill PA-C - 06/27/2023 2:11 PM EST Resume Prolia. Obtain Auth. Labs ordered. Nurse visit in 1-2 weeks. Hx tongue cancer s/p radiation. 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 Not a candidate for oral therapy. documented in this encounter Plan of Treatment Upcoming Encounters Date Type Department Care Team (Late st Contact Info) Description 07/11/2023 11:45 AM EDT Office Visit Urology, [facility] [address] [place] [address] Spencer Kumari MD [address] [address] [place] [address] 07/11/2023 1:30 PM EDT Nurse Only Rheumatology [address] [place] [address] Pf, Nurse Rheum [address] [place], [place] [address] [address] 09/03/2023 12:00 PM EDT Office Visit Gastroenterology, [facility] [address] [address] Imtiaz Kinsey MD [address] [facility] [place] [address] 09/21/2023 3:00 PM EDT Office Visit Gynecology/Obstetrics [facility] [address] [place] [address] Balbina Naik CRNP [address] [place] [address] 11/27/2023 9:20 AM EDT Office Visit Family Practice [facility] [address] [place] [address] Foster Zuniga MD [address] [place] [address] Health Maintenance Due Date Last Done Comments Zoster Vaccines (1 of 2) 1994 *BISPHONATE OR OTHER ACCEPTABLE MEDICATION NEEDED FOR OSTEOPOROSIS (REFER TO SMARTSET #1146) 08/10/2022 COVID-19 Vaccine ( season) 2022 02/24/2022, 03/16/2021, 08/12/2020, Additional history exists Depression Screening 01/05/2023 01/05/2022 TSH 12/30/2023 12/29/2022, 10/28, 10/12/2022, Additional history exists DXA Scan 05/21/2025 05/21/2023, 09/30, 01/26/2016, Additional history exists DTaP,Tdap,and Td Vaccines (3 - Td or Tdap) 10/24/2032 10/24/2022, 03/14/2006 Pneumococcal Vaccine: 65+ Years Completed 06/25/2018, 04/15/2018, 02/03/2014 Influenza Vaccine (FLU shot) Completed , 01/05/2022, 02/15/2021, Additional history exists VITAMIN D LEVEL ONCE IN A LIFETIME-USE SMARTSET# 99153 Completed 06/27/2023, 01/10/2021, 09/25/2008 GARDASIL-HPV IMMUNIZATION SERIES Aged Out No longer eligible based on patient's age to complete this topic Hepatitis B Aged Out No longer eligi ble based on patient's age to complete this topic MENINGOCOCCAL (MENACTRA/MENVEO) Aged Out No longer eligible based on patient's age to complete this topic documented as of this encounter Medical Devices Not on filedocumented as of this encounter Visit Diagnoses Diagnosis Age-related osteoporosis without current pathological fracture- Primary Senile osteoporosis documented in this encounter Advance Directives Healthcare Agents on File Name Relationship Healthcare Agent [facility] Communication Cristobal Jackson Spouse Health Care Repr esentative (appointed verbally by patient or by statute hierarchy) Care Teams Manager Of Internal Relationship Specialty Start Date End Date Foster Zuniga MD [address] [place] [address] PCP - General Family Medicine 04/02/23 documented as of this encounter
--- OUTSIDE RECORDS SUMMARY | 2023-07-18 23:39 | External Medical Summary | Summary of Care ---
Author Name Unknown Organization [facility] Address [address] [place] [address] Phone [phone] Care Team Providers Care Engine Cleaner Name Role Phone Marco Zuniga MD Primary Care Provider [phone] Reason for Referral * Precert (Within 10 days (routine)) - Authorized Specialty Diagnoses / Procedures Referred By Obed briones Referred To Contact Radiology Diagnoses Calculus of kidney Procedures CT ABD/PELVIS WO IV/ORAL CONTRAST Spencer Kumari MD [address] [place] [address] [place] [address] Referral ID Status Reason Start Date Expiration Date V isits Requested Visits Authorized [id number] Authorized 06/23/2024 999 999 Reason for Visit * Reason Comments Follow Up 6 month ret, CT resu ltsStones. Encounter Details Date Type Department Care Team (Late st Contact Info) Description 07/11/2023 11:45 AM EDT Office Visit Urology, [facility] [address] [place] [address] Spencer Kumari MD [address] [place] [address] [place] [address] Calculus of kidney* Allergies Active Allergy Reactions Criticality Noted Date Comments Penicillins 10/25/1999 rash and given shot as a child, has tolerated augmentin ok as well as cephalosporin documented as of this encounter (statuses as of 07/11/2023) Medications Medication Sig Dispensed Refills Start Date End Date Status Acetaminophen Childrens 160 MG/5ML Oral Solution Administer into feeding tube 640 mg 4 times a day as needed for Pain. 0 Active Levothyroxine Sodium 100 MCG Oral Tablet (Levoxyl)Indications: Acquired hypothyroidism Take 1 Tablet by mouth in the morning. (at least 30 min prior to breakfast or other meds). 30 Tablet 5 05/14/2023 Active Fibersource HN Oral LiquidIndications:Sev ere protein-calorie malnutrition (HCC) Administer 6 cans daily as directed via G tube via bolus syringe 17271 mL 11 07/11/2023 Active Hospital, Clinic, or Other Facility Administered Medication Ordered Dose Route Frequency Start Date End Date Status Denosumab (Prolia) subcut inj 60 mgIndications:Senile osteoporosis 60 mg SC [id number] 07/11/2023 07/05/2024 Active Denosumab (Prolia) subcut inj 60 mgIndications:Age-related osteoporosis without current pathological fracture 60 mg SC ONCE 07/11/2023 07/12/2023 Active documented as of this encounter (statuses as of 07/11/2023) Active Problems Problem Noted Date Diagnosed Date [...] as of this encounter (statuses as of 07/11/2023) Resolved Problems Problem Noted Date Diagnosed Date Resolved Date BMI less than 19,adult 05/13/202305/14 Medical home patient encounter 12/01/2022 04/16/2023 Chronic right flank pain 10/12/2022 Dysarthria 10/12/2022 04/16/2023 Upper respiratory tract infection 09/27/2022 04/16/2023 Pain around PEG tube site, initial encounter 3 04/16/2023 Bacterial pneumonia 09/30/2021 10/01/19 Severe protein-calorie malnutrition 06/04/2019 02/15/2021 Peripheral vascular disease 07/22/2018 01/05/2022 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 1 Malnutrition 10/26/2015 04/16/2023 Cellulitis of chest wall [...] as of this encounter (statuses as of 07/11/2023) Immunizations Name Administration Dates Next Due COVID-19 mRNA, LNP-s, No Pre serve, 2-Dose Series ([employer]) 03/16/2021,08/12/2020,07/22/2020 Covid-19, Mrna, Lnp-s, Pf, B ivalent, 30 Mcg, IM, 12 yrs and above ([employer]) 02/24/2022 Pneumococcal Conjugate Vacc, 13 Valent (Prevnar) [...] on file documented as of this encounter Last Filed Vital Signs Vital Sign Reading Time Taken Comments Blood Pressure - - Pulse - - Temperature 36.5 C (97.7 F) 07/11/2023 11:39 AM E DT Respiratory Rate - - Oxygen Saturation - - Inhaled Oxygen Concentration - - Weight 51.1 kg (112 lb 9.6 oz) 07/11/2023 11:39 AM EDT Height - - Body Mass Index 19.33 06/27/2023 11:42 AM EST documented in this encounter Functional Status Functional Status Response [...] No 02/22/2015 documented as of this encounter Progress Notes * Spencer Kumari MD - 07/11/2023 11:45 AM EDT [id number] PCP: MARCO ZUNIGA [address] [place] [address] [place] [address] [phone] Sharmin Jackson is a 78 year old female, who presents for six-month follow-up of her history of stonedisease, noted at the time of evaluation for unexplained abdominal pain. Patient's past notes reviewed. CT images are personally reviewed with patient demonstrating tiny stone material in both kidneys. No hydronephrosis or inflammation is noted. Patient is here today with her . Urolithiasis: Patient is being seen for stone disease today. Problem has been present since 2021. Severity is mild Problem is about the same. Patient has had the following imaging done: CT scan and ultrasound. In the past they have had no surgery for stone to manage their stones. Stone composition is unknown. Previous evaluation was done by primary care physician. CT scan June 2023: KIDNEYS/URETERS: Bilateral punctate nephrolithiasis. No hydronephrosis or obstructive uropathy. BLADDER: Unremarkable. IMPRESSION Bilateral nephrolithiasis. Creatinine Results: Lab Results Component Value Date/Time CREATININE - [facility] 0.6 06/27/2023 02:32 PM CREATININE - [facility] 0.7 09/22/2022 10:06 AM CREATININE - [facility] 0.6 05/05/2022 10:19 AM CREATININE - [facility] 0.7 06/04/2019 03:21 PM CREATININE - [facility] 0.6 10/26/2015 02:20 PM CREATININE - [facility] 0.8 04/20/2015 12:28 PM CREATININE-OUTSIDE LAB 0.77 08/22/2016 12:00 AM Current Outpatient Medications Medication Sig Dispense Refill Acetaminophen Childrens 160 MG/5ML Oral Solution Administer into feeding tube 640 mg 4 times a day as needed for Pain. Levothyroxine Sodium 100 MCG Oral Tablet (Levoxyl) Take 1 Tablet by mouth in the morning. (at least30 min prior to breakfast or other meds). 30 Tablet 5 Fibersource HN Oral Liquid Administer 6 cans daily as directed via G tube via bolus syringe 72533 mL 11 Current Facility-Administered Medications Medication Dose Route Frequency Provider Last Rate Last Admin Denosumab (Prolia) subcut inj 60 mg 60 mg Subcutaneous Q6 Months Cr Gill PA-C Denosumab (Prolia) subcut inj 60 mg 60 mg Subcutaneous Once Cr Gill PA-C Review of patient's allergies indicates: Allergen Reactions Penicillins rash and given shot as a child, has tolerated augmentin ok as well as cephalosporin Social History: Social History Tobacco Use Smoking status: Never Smokeless tobacco: Never Substance Use Topics Alcohol use: No Vaping/E-Cigarette Use Vaping/E-Cigarette Use Never User Vaping/E-Cigarette Substances Vaping/E-Cigarette Devices Family History Problem Relation Age of Onset Diabetes Father Heart Disorder Father Cancer Mother Colon Hypertension Father Stroke Father Thyroid Disorder Mother Past Surgical History: Procedure Laterality Date CHANGE G-TUBE, PERC W/O IMAGING (E COMMERCE DIRECTOR/RN) 06/05/2016 EGD, FLEXIBLE, DIAGNOSTIC 11/27/2012 UPPER GI ENDOSCOPY DIAGNOSTIC performed by Jacob Santos MD at [facility] EGD, FLEXIBLE, DIAGNOSTIC 10/01/2013 eso stricture, sm HH/ESOPHAGOGASTRODUODENOSCOPY (EGD), FLEXIBLE, TRANSORAL, DIAGNOSTIC performed byJacob Santos MD at ENDOSCOPY [facility] EGD, FLEXIBLE, DIAGNOSTIC 02/05/2014 ESOPHAGOGASTRODUODENOSCOPY (EGD), FLEXIBLE, TRANSORAL, DIAGNOSTIC performed by Adrian Muñoz MD at ENDOSCOPY [facility] EGD, FLEXIBLE, DIAGNOSTIC N/A 03/18/2014 ESOPHAGOGASTRODUODENOSCOPY (EGD), FLEXIBLE, TRANSORAL, DIAGNOSTIC performed by Adrian Muñoz MD at ENDOSCOPY [facility] EGD, FLEXIBLE, DIAGNOSTIC 07/28/2014 ESOPHAGOGASTRODUODENOSCOPY (EGD), FLEXIBLE, TRANSORAL, DIAGNOSTIC performed by Adrian Muñoz MD at ENDOSCOPY [facility] EGD, FLEXIBLE, DIAGNOSTIC 12/25/2014 ESOPHAGOGASTRODUODENOSCOPY (EGD), FLEXIBLE, TRANSORAL, DIAGNOSTIC performed by Isaiah Sen MD at ENDOSCOPY [facility] EGD, FLEXIBLE, DIAGNOSTIC 05/13/2015 PEG placement/inpt [facility] EGD, FLEXIBLE, DIAGNOSTIC 05/10/2015 radiation changes, eso web, HH/inpt [facility] ESOPHAGOSCOPY, FLEXIBLE, TRANSENDOSCOPIC DILATION <30MM 07/09 [place] with dilatation PARTIAL MASTECTOMY 04/07/05 Left PM/SLNB at [facility] Dr. Sharma THORACOTOMY WITH EXPLORATION 1974 Thoracotomy,with biopsy Past Medical History: Diagnosis Date BMI less than 19,adult 05/13/2023 Breast cancer (HCC) Convalescence following chemotherapy Dyslipidemia, goal LDL below 160 03/10/2001 Exposure to unspecified radiation 1999 xrt for squamous cell on base of tongue HTN, goal below 140/90 12/05/2005 on diuretic Hypothyroidism MAL BERNA VENTRAL TONGUE 01/30/2003 Malignant neoplasm of female breast (HCC) Breast CA, Unspecified left OAB (overactive bladder) 05/13/2023 Other osteoporosis last dexa 06/06 - repeat 2 years S/P endoscopy 05/2011 stricture, dilatation, secondary to radiation Sarcoidosis 26 yrs ago lung biopsy Unspecified prolapse of vaginal knapp has pessary in place Patient Active Problem List Diagnosis Code History of tongue cancer Z85.810 Hx of breast cancer Z85.3 Sarcoidosis D86.9 Dyslipidemia E78.5 Gastroesophageal reflux disease with esophagitis K21.00 Status post insertion of percutaneous endoscopic gastrostomy (PEG) tube ([facility]) Z93.1 Acquired hypothyroidism E03.9 Hypoglossal nerve paralysis G52.3 Age-related osteoporosis without current pathological fracture M81.0 Kidney stones N20.0 Thoracic degenerative disc disease M51.34 OAB (overactive bladder) N32.81 Acute mastitis N61.0 Constitutional: (-) fever and (-) chills Abdominal/GI: (+) PEG tube due to swallowing issues Female : (+) see HPI Neurology: (-) negative: no focal neurologic defect Musculoskeletal: (+) back pain/problems Physical Exam Nursing note reviewed. Constitutional: General: She is not in acute distress. Appearance: She is not ill-appearing or toxic-appearing. HENT: Head: Normocephalic. Right Ear: External ear normal. Left Ear: External ear normal. Nose: Nose normal. Mouth/Throat: Comments: Atrophic lower jaw Eyes: Extraocular Movements: Extraocular movements intact. Cardiovascular: Pulses: Normal pulses. Pulmonary: Effort: No respiratory distress. Abdominal: General: There is no distension. Musculoskeletal: General: Deformity (Severe kyphosis) present. Skin: Coloration: Skin is not pale. Neurological: Mental Status: She is alert and oriented to person, place, and time. Gait: Gait abnormal. Psychiatric: Thought Content: Thought content normal. Impression/Plan: 78-year-old female with nonobstructive renal stones. Findings reviewed, imaging reviewed with past CT scans. Findings remained stable. I do not suspect this to be the source of her ongoing discomfort. Especially in the context of her normal renal function, would avoid any sort of urologic intervention if possible. Will plan on reimaging with noncontrast CT in 1 year's time. Worrisome signs and symptoms are reviewed, patient can contact us sooner with any other deterioration. Above content is personally reviewed. Patient vocalizes good understanding of the treatment plan. Spencer Kumari MD 8:31 AM 07/11/2023 documented in this encounter Nursing Notes * Annalee Hicks MED ASSIST - 07/11/2023 11:40 AM EDT Chief Complaint Patient presents with Follow Up 6 month ret, CT results Stones. Verified patient. Patient is here with her today. documented in this encounter Plan of Treatment Upcoming Encounters Date Type Department Care Team (Late st Contact Info) Description 07/11/2023 1:30 PM EDT Nurse Only Rheumatology [facility] [address] [place] [address] [place] [address] Pf, Nurse Rheum [address] [facility] [place] [address] 09/03/2023 12:00 PM EDT Office Visit Gastroenterology, [facility] [address] [facility] [place] [address] Imtiaz Kinsey MD 132 [facility] [place] [address] 09/21/2023 3:00 PM EDT Office Visit Gynecology/Obstetrics [facility] [address] [facility] [place] [address] Balbina Naik CRNP 132 [facility] [place] [address] 11/27/2023 9:20 AM EDT Office Visit Family Practice [facility] [address] [facility] [place] [address] Marco Zuniga MD 132 [facility] [place] [address] 06/23/2024 11:30 AM EST Imaging [facility] [address] [facility] [place] [address] 07/09/2024 11:30 AM EDT Office Visit Urology, [facility] [address] [facility] [place] [address] Sepncer Kumari MD [address] [place] [address] [place] [address] Scheduled Orders Name Type Priority Associated Diagnoses Orde r Schedule CT ABD/PELVIS WO IV/ORAL CONTRAST Medical Imaging Routine Calculus of kidney Expected: 06/23/2024, Expires: 08/10/2024 Health Maintenance Due Date Last Done Comments [...] D LEVEL ONCE IN A LIFETIME-USE SMARTSET# [id number] Completed 06/27/2023, 01/10/2021, 09/25/2008 GARDASIL-HPV IMMUNIZATION SERIES [...] as of this encounter Visit Diagnoses Diagnosis Calculus of kidney- Primary documented in this encounter Advance Directives Healthcare Agents on File Name Relationship Healthcare Agent Relationshi p Communication Cristobal Jackson Spouse Health Care Repr esentative (appointed verbally by patient or by statute hierarchy) Care Teams Engine Cleaner Relationship Specialty Start Date End Date Marco Zuniga MD [address] [place] [address] PCP - General Family Medicine 04/02/23 documented as of this encounter
--- OUTSIDE RECORDS SUMMARY | 2023-07-18 23:39 | External Medical Summary | Summary of Care ---
Author Name Unknown Organization [facility] Address [address] [place] [address] Phone [phone] Care Team Providers Care Car Designer Name Role Phone Foster Zuniga MD Primary Care Provider [phone] [phone] Reason for Visit * Reason Onset Date Comments Med Request 07/10/2023 Encounter Details Date Type Department Care Team (Late st Contact Info) Description 07/10/[address] [facility] [address] [place] [id number] Foster Zuniga MD [address] [place] [address] Med Request Allergies Active Allergy Reactions Criticality Noted Date Comments Penicillins 10/25/1999 rash and given shot as a child, has tolerated augmentin ok as well as cephalosporin documented as of this encounter (statuses as of 07/13/2023) Medications Medication Sig Dispensed Refills Start Date End Date Status Acetaminophen Childrens 160 MG/5ML Oral Solution Administer into feeding tube 640 mg 4 times a day as needed for Pain. 0 Active Levothyroxine Sodium 100 MCG Oral Tablet (Levoxyl)Indications :Acquired hypothyroidism Take 1 Tablet by mouth in the morning. (at least 30 min prior to breakfast or other meds). 30 Tablet 5 05/14/2023 Active Fibersource HN Oral LiquidIndications:Se yancy protein-calorie malnutrition (HCC) Administer 6 cans daily as directed via G tube via bolus syringe 48542 mL 11 07/11/2023 Active Fibersource HN Oral LiquidIndications:Se yancy protein-calorie malnutrition (HCC) Administer 6 cans daily as directed via G tube via bolus syringe 76822 mL 11 08/17/2022 4 Discontinue d(Refill) Hospital, Clinic, or Other Facility Administered Medication Ordered Dose Route Frequency Start Date End Date Status Denosumab (Prolia) subcut inj 60 mgIndications:Senile osteoporosis 60 mg SC [id number] 07/11/2023 07/05/2024 Active documented as of this encounter (statuses as of 07/13/2023) Active Problems Problem Noted Date Diagnosed Date [...] as of this encounter (statuses as of 07/13/2023) Resolved Problems Problem Noted Date Diagnosed Date [...] as of this encounter (statuses as of 07/13/2023) Immunizations Name Administration Dates Next Due COVID-19 mRNA, LNP-s, No Pre serve, 2-Dose Series ([employer]) 03/16/2021,08/12/2020,07/22/2020 Covid-19, Mrna, Lnp-s, Pf, B ivalent, 30 Mcg, IM, 12 yrs and above ([employer]) 02/24/2022 Pneumococcal Conjugate Vacc, 13 Valent (Prevnar) [...] encounter Miscellaneous Notes * Telephone Encounter - Foster Zuniga MD - 07/11/2023 8:14 AM EDT Signed. documented in this encounter Plan of Treatment Upcoming Encounters Date Type Department Care Team (Late st Contact Info) Description 09/03/2023 12:00 PM EDT Office Visit Gastroenterology, [facility] 132 [facility] [place] [address] Imtiaz Kinsey MD 132 [facility] [place] [address] 09/21/2023 3:00 PM EDT Office Visit Gynecology/Obstetrics [facility] [address] [facility] [place] [address] Balbina Naik CRNP 132 [facility] [place] [address] 11/27/2023 9:20 AM EDT Office Visit Family Practice [facility] [address] [facility] [place] [address] Foster Zuniga MD 132 [facility] [place] [address] 01/14/2024 1:30 PM EDT Nurse Only Rheumatology [place] [address] [facility] [place] [address] Pf, Nurse Rheum [address] [place] [address] [place] [address] 06/23/2024 11:30 AM EST Imaging Radiology [facility] 1st [facility] [address] [facility] [place] [address] 07/09/2024 11:30 AM EDT Office Visit Urology, [facility] 132 [facility] [place] [address] Spencer Kumari MD 27 [facility] [address] [place] [address] Health Maintenance Due Date Last Done Comments [...] D LEVEL ONCE IN A LIFETIME-USE SMARTSET# [id number] Completed 06/27/2023, 01/10/2021, 09/25/2008 GARDASIL-HPV IMMUNIZATION SERIES [...] as of this encounter Visit Diagnoses Diagnosis Severe protein-calorie malnutrition (HCC) Other severe protein-calorie malnutrition documented in this encounter Advance Directives Healthcare Agents on File Name Relationship Healthcare Agent [facility] Communication Cristobal Jackson Spouse Health Care Repr esentative (appointed verbally by patient or by statute hierarchy) Care Teams Car Designer Relationship Specialty Start Date End Date Foster Zuniga MD 132 [place] [address] PCP - General Family Medicine 04/02/23 documented as of this encounter
--- OUTSIDE RECORDS SUMMARY | 2023-07-18 23:39 | External Medical Summary | Summary of Care ---
Author Name Unknown Organization [facility] Address [address] [place] [address] Phone [phone] Care Team Providers Care Technicians And Trades Workers Name Role Phone Foster Zuniga MD Primary Care Provider [phone] [phone] Reason for Visit * Reason Onset Date Comments Medication Administration prolia Medication Administration 07/11/2023 Prolia * Precert (Within 10 days (routine)) - Authorized Specialty Diagnoses / Procedures Referred By Contac t Referred To Contact Rheumatology Diagnoses Age-related osteoporosis without current pathological fracture Procedures DENOSUMAB 1MG, INJ Cr [facility] [address] Cr Gill [facility] [place] [address] Referral ID Status Reason Start Date Expiration Date V isits Requested Visits Authorized [id number] Authorized Precert 01/10/2021 04/29/2099 99 99 Encounter Details Date Type Department Care Team (Late st Contact Info) Description 07/11/2023 1:30 PM EDT Nurse Only Rheumatology [place] [address] [place] [address] Pf, Nurse Rheum [facility] [place] [address] Medication Administration (prolia); Medica... Allergies Active Allergy Reactions Criticality Noted Date [...] directed via G tube via bolus syringe 31169 mL 11 07/11/2023 Active Hospital, Clinic, or Other Facility Administered Medication Ordered Dose Route Frequency Start Date End Date Status Denosumab (Prolia) subcut inj 60 mgIndications:Senile osteoporosis 60 mg SC [id number] 07/11/2023 07/05/2024 Active Denosumab (Prolia) subcut inj [...] Pain around PEG tube site, initial encounter 04/16/2023 Bacterial pneumonia 09/30/2021 10/01/19 Severe protein-calorie [...] mRNA, LNP-s, No Pre serve, 2-Dose Series ([employer]) 03/16/2021,08/12/2020,07/22/2020 Covid-19, Mrna, Lnp-s, Pf, B ivalent, 30 Mcg, IM, 12 yrs and above ([employer]) 02/24/2022 Pneumococcal Conjugate Vacc, 13 Valent (Prevnar) [...] Pressure - - Pulse - - Temperature 36.6 C (97.8 F) 07/11/2023 1:11 PM ED T Respiratory Rate - - Oxygen Saturation - - Inhaled Oxygen Concentration - - Weight - - Height - - Body Mass Index - - documented in this encounter Functional Status Functional [...] as of this encounter Progress Notes * Verónica Ruiz LPN - 07/11/2023 1:12 PM EDT Sharmin Jackson presents today for administration of Prolia. She understands the benefits and risks of this treatment. An educational pamphlet was given to the patient. Prolia 60 mg was administered subcutaneously. The patient tolerated the procedure without problems. She will return in 6 months for the next injection and evaluation. Verónica Ruiz LPN documented in this encounter Nursing Notes * Verónica Ruiz LPN - 07/11/2023 1:11 PM EDT Chief Complaint Patient presents with Medication Administration prolia documented in this encounter Plan of Treatment Upcoming Encounters Date Type Department Care Team (Late st Contact Info) Description 09/03/2023 12:00 PM EDT Office Visit Gastroenterology, [facility] [address] [place] [address] Imtiaz Kinsey MD 132 [place] [address] 09/21/2023 3:00 PM EDT Office Visit Gynecology/Obstetrics [facility] [address] [place] [address] Balbina Naik CRNP 132 [place] [address] 11/27/2023 9:20 AM EDT Office Visit Family Practice [facility] 132 [facility] [place] [address] Foster Zuniga MD 132 [facility] [place] [address] 01/14/2024 1:30 PM EDT Nurse Only Rheumatology [address] [place] [address] Pf, Nurse Rheum [address] [place] [address] [place] [address] 06/23/2024 11:30 AM EST Imaging Radiology [facility] 1st [facility] 132 [facility] [place] [address] 07/09/2024 11:30 AM EDT Office Visit Urology, [facility] 132 [place] [address] Spencer Kumari MD 27 [place] [address] [place] [address] Health Maintenance Due Date Last Done Comments [...] D LEVEL ONCE IN A LIFETIME-USE SMARTSET# [id number] Completed 06/27/2023, 01/10/2021, 09/25/2008 GARDASIL-HPV IMMUNIZATION SERIES [...] as of this encounter Visit Diagnoses Diagnosis Senile osteoporosis- Primary documented in this encounter Administered Medications Active Administered Medications - up to 3 most recent administrations Medication Order MAR Action Action Date Dose Rate Site Denosumab (Prolia) subcut inj 60 mg 60 mg, Subcutaneous, [id number], First dose on Sun07/11/23 at 1330, Last dose on Sun01/07/24 at 1330, For 2 doses Given 07/11/2023 1:15 PM EDT 60 mg Arm Right Upper documented in this encounter Advance Directives Healthcare Agents on File Name Relationship Healthcare Agent Relationshi p Communication Cristobal Jackson Spouse Health Care Repr esentative (appointed verbally by patient or by statute hierarchy) Care Teams Technicians And Trades Workers Relationship Specialty Start Date End Date Foster Zuniga MD 132 [place] [address] PCP - General Family Medicine 04/02/23 documented as of this encounter
--- OUTSIDE RECORDS SUMMARY | 2023-07-18 23:40 | External Medical Summary | Summary of Care ---
Author Name Unknown Organization [facility] Address [address] [place] [address] Phone [phone] Care Team Providers Care Technical System Analyst Name Role Phone Foster Zuniga MD Primary Care Provider [phone] [phone] Reason for Visit * Reason Onset Date Comments Med Request 06/11/2023 Encounter Details Date Type Department Care Team (Late st Contact Info) Description 06/11/2023 Telephone Family Practice [facility] [address] [place] [address] Foster Zuniga MD [address] [place] [address] Med Request Allergies Active Allergy Reactions Criticality Noted Date Comments Penicillins 10/25/1999 rash and given shot as a child, has tolerated augmentin ok as well as cephalosporin documented as of this encounter (statuses as of 06/12/2023) Medications Medication Sig Dispensed Refills Start Date End Date Status Acetaminophen Childrens 160 MG/5ML Oral Solution Administer into feeding tube 640 mg 4 times a day as needed for Pain. 0 Active Fibersource HN Oral LiquidIndications:S evere protein-calorie malnutrition (HCC) Administer 6 cans daily as directed via G tube via bolus syringe 57301 mL 11 08/17/2022 Active Levothyroxine Sodium 100 MCG Oral Tablet (Levoxyl)Indication s:Acquired hypothyroidism Take 1 Tablet by mouth in the morning. (at least 30 min prior to breakfast or other meds). 30 Tablet 5 05/14/2023 Active Polymyxin B-Trimethoprim 30145-3.1 UNIT/ML-% Ophthalmic Solution Instill 1 Drop into both eyes every 3 hours while awake for 7 days. (6 times a day) for 7 days. 10 mL 0 06/11/2023 Active Cephalexin 250 MG/5ML Oral Suspension Reconstituted (Keflex) Take 10 mL by mouth in the morning and 10 mL before bedtime. 100 mL 0 06/12/2023 Active Cephalexin 500 MG Oral Capsule Take 1 Capsule by mouth in the morning and 1 Capsule before bedtime. Do all this for 10 days. 20 Capsule 0 06/11/2023 Discontinue d(Discharge d) documented as of this encounter (statuses as of 06/12/2023) Active Problems Problem Noted Date Diagnosed Date [...] as of this encounter (statuses as of 06/12/2023) Resolved Problems Problem Noted Date Diagnosed Date Resolved Date BMI less than 19,adult 05/13/202305/14 Medical home patient encounter 12/01/2022 04/16/2023 Chronic right flank pain 10/12/2022 Dysarthria 10/12/2022 04/16/2023 Upper respiratory tract infection 09/27/2022 04/16/2023 Pain around PEG tube site, initial encounter 04/16/2023 Bacterial pneumonia 09/30/2021 10/01/19 22 Severe [...] as of this encounter (statuses as of 06/12/2023) Immunizations Name Administration Dates Next Due COVID-19 mRNA, LNP-s, No Pre serve, 2-Dose Series ([employer]) 03/16/2021,08/12/2020,07/22/2020 Covid-19, Mrna, Lnp-s, Pf, B ivalent, [...] Telephone Encounter - Foster Zuniga MD - 06/12/2023 7:53 AM EST sent * Telephone Encounter - Lyssa Lagos PHARM Tech - 06/11/2023 3:02 PM EST Pharmacy called stating pt has a tube so she needs liquid antibiotics. Pharmacist said they do havecephalexin suspension but they need a script. ThanksLyssa Fundraising Specialist [facility] ([facility]) 06/11/2023,3:04 PM documented in this encounter Plan of Treatment Upcoming Encounters Date Type Department Care Team (Late st Contact Info) Description 06/18/2023 1:10 PM EST Nutrition Services Nutrition & Weight Management, [facility] [address] [place] [address] Vannessa Fuentes RDN 132 [facility] [place] [address] 06/20/2023 2:30 PM EST Office Visit Gynecology/Obstetrics [facility] [address] [place] [address] Balbina Naik CRNP 132 [facility] [place] [address] 06/27/2023 2:00 PM EST Office Visit Rheumatology [address] [place] [address] Cr Gill PA-C [address] [place] [address] [place] [address] 06/29/2023 10:00 AM EST Imaging Radiology [facility] [address] [place] [address] 07/11/2023 11:45 AM EDT Office Visit Urology, [facility] [address] [place] [address] Spencer Kumari MD 27 [facility] [address] [place] [id number] 09/03/2023 12:00 PM EDT Office Visit Gastroenterology, [facility] [address] [place] [address] Imtiaz Kinsey MD 132 [place] [address] 11/27/2023 9:20 AM EDT Office Visit Family Practice [facility] [address] [place] [address] Foster Zuniga MD [address] [place] [address] Health Maintenance Due Date Last Done Comments Zoster Vaccines (1 of 2) 1994 *BISPHONATE OR OTHER ACCEPTABLE MEDICATION NEEDED FOR OSTEOPOROSIS (REFER TO SMARTSET #1146) 08/10/2022 COVID-19 Vaccine (2022- season) 2022 02/24/2022, 03/16/2021, 08/12/2020, Additional history exists Depression Screening 01/05/2023 01/05/2022 TSH 12/30/2023 12/29/2022, 10/28, 10/12/2022, Additional history exists DXA Scan 05/21/2025 05/21/2023, 09/30, 01/26/2016, Additional history exists DTaP,Tdap,and Td Vaccines (3 - Td or Tdap) 10/24/2032 10/24/2022, 03/14/2006 Pneumococcal Vaccine: 65+ Years Completed 06/25/2018, 04/15/2018, 02/03/2014 VITAMIN D LEVEL ONCE IN A LIFETIME-USE SMARTSET# [id number] Completed 01/10/2021, 09/25/2008 Influenza Vaccine (FLU shot) Completed , 01/05/2022, 02/15/2021, Additional history exists GARDASIL-HPV IMMUNIZATION SERIES Aged Out No longer eligible based on patient's age to complete this topic Hepatitis B Aged Out No longer eligi ble based on patient's age to complete this topic MENINGOCOCCAL (MENACTRA/MENVEO) Aged Out No longer eligible based on patient's age to complete this topic documented as of this encounter Medical Devices Not on filedocumented as of this encounter Advance Directives Healthcare Agents on File Name Relationship Healthcare Agent Relationshi p Communication Cristobal Jackson Spouse Health Care Repr esentative (appointed verbally by patient or by statute hierarchy) Care Teams Technical System Analyst Relationship Specialty Start Date End Date Foster Zuniga MD [address] [place] [address] PCP - General Family Medicine 04/02/23 documented as of this encounter
--- OUTSIDE RECORDS SUMMARY | 2023-07-18 23:40 | External Medical Summary | Summary of Care ---
Author Name Unknown Organization [facility] Address [address] [place] [address] Phone [phone] Care Team Providers Care Type Proof Reproducer Name Role Phone Foster Zuniga MD Primary Care Provider [phone] Reason for Visit * Reason Onset Date Comments Med Request 06/11/2023 Encounter Details Date Type Department Care Team (Late st Contact Info) Description 06/11/2023 Telephone Family Practice [facility] [address] [place] [address] Foster Zuniga MD [address] [place] [...] directed via G tube via bolus syringe 12037 mL 11 08/17/2022 Active Levothyroxine Sodium 100 MCG Oral Tablet (Levoxyl)Indication s:Acquired hypothyroidism Take 1 Tablet by mouth in the morning. (at least 30 min prior to breakfast or other meds). 30 Tablet 5 05/14/2023 Active Polymyxin B-Trimethoprim 72279-3.1 UNIT/ML-% Ophthalmic Solution Instill 1 Drop into [...] mRNA, LNP-s, No Pre serve, 2-Dose Series ([employer]) 03/16/2021,08/12/2020,07/22/2020 Covid-19, Mrna, Lnp-s, Pf, B ivalent, [...] encounter Miscellaneous Notes * Telephone Encounter - Saniya Holloway [facility] - 06/12/2023 9:22 AM EST Desmond calling in regarding Cephalexin 250 MG/5ML Oral Suspension Reconstituted (Keflex) he said the medication was reduced from 10 days to 5 and he is not sure if that was intentional or not. Please advise. Thank you, Saniya Holloway CPht Director Graphics II [facility] ([facility]) (formerly Telepharmacy) 06/12/2023, 9:23 AM * Telephone Encounter - Foster Zuniga MD - 06/12/2023 7:53 AM EST sent * Telephone Encounter - Lyssa Lagos PHARM Tech - 06/11/2023 3:02 PM EST Pharmacy called stating pt has a tube so she needs liquid antibiotics. Pharmacist said they do havecephalexin suspension but they need a script. Thanks, Lyssa Lagos Remote Sensing Advisor [facility] ([facility]) 06/11/2023,3:04 PM documented in this encounter Plan of Treatment Upcoming Encounters Date Type Department Care Team (Late st Contact Info) Description 06/18/2023 1:10 PM EST Nutrition Services Nutrition & Weight Management, [facility] [address] [place] [address] Vannessa Fuentes RDN [address] [place] [address] 06/20/2023 2:30 PM EST Office Visit Gynecology/Obstetrics [facility] [address] [place] [address] Balbina Naik CRNP [address] [place] [address] 06/27/2023 2:00 PM EST Office Visit [address]umatology [address] [address] Cr Gill PA-C [address] [facility] [place] [address] 06/29/2023 10:00 AM EST Imaging Radiology [facility] 1st [facility] [place] 132 [facility] [place] [address] 07/11/2023 11:45 AM EDT Office Visit Urology, [facility] 132 [facility] [place] [address] Spencer Kumari MD [address] [place] [address] [place] [address] 09/03/2023 12:00 PM EDT Office Visit Gastroenterology, [facility] 132 [facility] [place] [address] Imtiaz Kinsey MD 132 [place] [address] 11/27/2023 9:20 AM EDT Office Visit Family Practice [facility] 132 [facility] [place] [address] Foster Zuniga MD 132 [facility] [place] [address] Health Maintenance Due Date Last Done Comments [...] D LEVEL ONCE IN A LIFETIME-USE SMARTSET# [id number] Completed 01/10/2021, 09/25/2008 Influenza Vaccine (FLU shot) [...] patient or by statute hierarchy) Care Teams Type Proof Reproducer Relationship Specialty Start Date End Date Foster Zuniga MD [address] [place] [address] PCP - General Family Medicine 04/02/23 documented as of this encounter
--- OUTSIDE RECORDS SUMMARY | 2023-07-18 23:40 | External Medical Summary | Summary of Care ---
Author Name Unknown Organization [facility] Address [address] [place] [address] Phone [phone] Care Team Providers Care Business Rules Analyst Name Role Phone Foster Zuniga MD Primary Care Provider +1 -[phone] Reason for Visit * Reason Onset Date Comments Med Request 06/11/2023 Encounter Details Date Type Department Care Team (Late st Contact Info) Description 06/11/2023 Telephone Family Practice [facility] [address] [place] [address] Foster Zuniga MD [address] [place] [...] directed via G tube via bolus syringe 10732 mL 11 08/17/2022 Active Levothyroxine Sodium 100 MCG Oral Tablet (Levoxyl)Indication s:Acquired hypothyroidism Take 1 Tablet by mouth in the morning. (at least 30 min prior to breakfast or other meds). 30 Tablet 5 05/14/2023 Active Polymyxin B-Trimethoprim 29269-5.1 UNIT/ML-% Ophthalmic Solution Instill 1 Drop into [...] mRNA, LNP-s, No Pre serve, 2-Dose Series ([employer]) 03/16/2021,08/12/2020,07/22/2020 Covid-19, Mrna, Lnp-s, Pf, B ivalent, [...] encounter Miscellaneous Notes * Telephone Encounter - Anabel Parra LPN - 06/12/2023 11:19 AM EST Notified pharmacist. * Telephone Encounter - Saniya Holloway CPhT - 06/12/2023 9:22 AM EST Tabbyt calling in regarding Cephalexin 250 MG/5ML Oral Suspension Reconstituted (Keflex) he said the medication was reduced from 10 days to 5 and he is not sure if that was intentional or not. Please advise. Thank you, Saniya Holloway CPht Director Of Speech Pathology II [facility] ([facility]) (formerly Telepharmacy) 06/12/2023, 9:23 AM * Telephone Encounter - Foster uZniga MD - 06/12/2023 7:53 AM EST sent * Telephone Encounter - Lyssa Lagos PHARM Tech - 06/11/2023 3:02 PM EST Pharmacy called stating pt has a tube so she needs liquid antibiotics. Pharmacist said they do havecephalexin suspension but they need a script. Thanks, Lyssa Lagos Copy Center Specialist [facility] ([facility]) 06/11/2023,3:04 PM documented in this encounter Plan of Treatment Upcoming Encounters Date Type Department Care Team (Late st Contact Info) Description 06/18/2023 1:10 PM EST Nutrition Services Nutrition & Weight Management, [facility] [address] [place] [address] Vannessa Fuentes RDN [address] [place] [address] 06/20/2023 2:30 PM EST Office Visit Gynecology/Obstetrics [facility] [address] [place] [address] Balbina Naik CRNP [address] [place] [address] 06/27/2023 2:00 PM EST Office Visit Rheumatology [facility] [address] [facility] [place] [address] Cr Gill PA-C 2520 [facility] [place] [address] 06/29/2023 10:00 AM EST Imaging Radiology [facility] 1st Floor, [place] 132 [facility] [place] [address] 07/11/2023 11:45 AM EDT Office Visit Urology, [facility] 132 [facility] [place] [address] Spencer Kumari MD [address] [place] [address] [place] [address] 09/03/2023 12:00 PM EDT Office Visit Gastroenterology, [facility] 132 [facility] [place] [address] Imtiaz Kinsey MD 132 [facility] [place] [address] 11/27/2023 9:20 AM EDT Office Visit Family Practice [facility] 132 [facility] [place] [address] Foster [facility]iga MD [facility] [place] [address] Health Maintenance Due Date Last Done Comments [...] D LEVEL ONCE IN A LIFETIME-USE SMARTSET# [id number] Completed 01/10/2021, 09/25/2008 Influenza Vaccine (FLU shot) [...] patient or by statute hierarchy) Care Teams Business Rules Analyst Relationship Specialty Start Date End Date Foster Zuniga MD [address] [place] [address] PCP - General Family Medicine 04/02/23 documented as of this encounter
--- OUTSIDE RECORDS SUMMARY | 2023-07-18 23:40 | External Medical Summary ---
Author Name Unknown Address Unknown Organization K01:LABORATORY [facility] [place] - [address] [place] [address] Laboratory Report Ordering Provider Test Date Status MIGUELANGEL HOLLIS 06/27/2023 14:32:00 Final Observation Date Value Abnormality Reference (Units ) Status MYCODE SPECIMEN-SST 06/27/2023 14:32:00 Freezing of extracted DNA, whole blood and/or serum. Final Performing Location [facility]ATORY [facility] - [address] [place] [address]
--- OUTSIDE RECORDS SUMMARY | 2023-07-18 23:40 | External Medical Summary | Summary of Care ---
Author Name Unknown Organization [facility] Address [address] [place] [address] Phone [phone] Care Team Providers Care Procedure Manager Name Role Phone Foster Zuniga MD Primary Care Provider [phone] [phone] Reason for Visit * Reason Comments Underwriter Return Encounter Details Date Type Department Care Team (Late st Contact Info) Description 06/27/2023 12:00 PM EST Office Visit Gynecology/Obstetric s [facility] [address] [place] [address] Balbina Naik CRNP [address] [place] [address] Pessary maintenance* Allergies Active Allergy Reactions Criticality Noted Date Comments Penicillins 10/25/1999 rash and given shot as a child, has tolerated augmentin ok as well as cephalosporin documented as of this encounter (statuses as of 06/27/2023) Medications Medication Sig Dispensed Refills Start Date End Date Status Acetaminophen Childrens 160 MG/5ML Oral Solution Administer into feeding tube 640 mg 4 times a day as needed for Pain. 0 Active Fibersource HN Oral LiquidIndications:Sev ere protein-calorie malnutrition (HCC) Administer 6 cans daily as directed via G tube via bolus syringe 16294 mL 11 08/17/2022 Active Levothyroxine Sodium 100 MCG Oral Tablet (Levoxyl)Indications: Acquired hypothyroidism Take 1 Tablet by mouth in the morning. (at least 30 min prior to breakfast or other meds). 30 Tablet 5 05/14/2023 Active Cephalexin 250 MG/5ML Oral Suspension Reconstituted (Keflex) Take 10 mL by mouth in the morning and 10 mL before bedtime. 100 mL 0 06/22/2023 Active documented as of this encounter (statuses as of 06/27/2023) Active Problems Problem Noted Date Diagnosed Date [...] as of this encounter (statuses as of 06/27/2023) Resolved Problems Problem Noted Date Diagnosed Date [...] as of this encounter (statuses as of 06/27/2023) Immunizations Name Administration Dates Next Due COVID-19 mRNA, LNP-s, No Pre serve, 2-Dose Series ([employer]) 03/16/2021,08/12/2020,07/22/2020 Covid-19, Mrna, Lnp-s, Pf, B ivalent, [...] Sign Reading Time Taken Comments Blood Pressure 124/78 06/27/2023 11:42 AM EST Pulse - - Temperature - - Respiratory Rate - - Oxygen Saturation - - Inhaled Oxygen Concentration - - Weight 51 kg (112 lb 8 oz) 06/27/2023 11:[address] Height 162.6 cm (5' 4") 06/27/2023 11:42 AM EST Body Mass Index 19.31 06/27/2023 11:42 AM EST documented in this [...] as of this encounter Progress Notes * Balbina Naik CRNP - 06/27/2023 11:54 AM EST Sharmin Jackson; [id number]; Date of Visit06/27/2023 The patient is a 78 year old who presents today for a pessary check. The patient states she isdoing well with the pessary, able to pass her water and move her bowels without difficulty. The pessary is removed for cleaning. The vaginal vault is inspected with no ulcerations noted. The pessary is re-inserted. Plan: The patient is doing well. She will return in 3 months time for a repeat check. CEASAR Timmons cc: Foster Zuniga MD documented in this encounter Nursing Notes * Antoinette Garduno RN - 06/27/2023 11:39 AM EST Patient here for pessary follow up No concerns documented in this encounter Plan of Treatment Upcoming Encounters Date Type Department Care Team (Late st Contact Info) Description 06/27/2023 2:00 PM EST Office Visit Rheumatology [address] [place] [address] Cr Gill PA-C [facility]0 [facility] [place] [address] 06/29/2023 10:15 AM EST Imaging Radiology [facility] [address] [facility] 132 [facility] [place] [address] 07/11/2023 11:45 AM EDT Office Visit Urology, [facility] 132 [facility] [place] [address] Spencer Kumari MD [address] [facility] [address] [place] [address] 09/03/2023 12:00 PM EDT Office Visit Gastroenterology, [facility] 132 [facility] [place] [address] Imtiaz Kinsey MD 132 [facility] [place] [address] 09/21/2023 3:00 PM EDT Office Visit Gynecology/Obstetrics [facility] [address] [place] [address] Balbina Naik CRNP [address] [place] [address] 11/27/2023 9:20 AM EDT Office Visit Family Practice [facility] [address] [place] [address] Foster Zuniga MD [address] [place] [address] Health Maintenance Due Date Last Done Comments [...] D LEVEL ONCE IN A LIFETIME-USE SMARTSET# [id number] Completed 01/10/2021, 09/25/2008 Influenza Vaccine (FLU shot) [...] as of this encounter Visit Diagnoses Diagnosis Pessary maintenance- Primary Fitting and adjustment of other device documented in this encounter Advance Directives Healthcare Agents on File Name Relationship Healthcare Agent Relationshi p Communication Cristobal Jackson Spouse Health Care Repr esentative (appointed verbally by patient or by statute hierarchy) Care Teams Procedure Manager Relationship Specialty Start Date End Date Foster Zuniga MD [address] [place] [address] PCP - General Family Medicine 04/02/23 documented as of this encounter
--- OUTSIDE RECORDS SUMMARY | 2023-07-18 23:40 | External Medical Summary | Summary of Care ---
Author Name Unknown Organization [facility] Address [address] [place] [address] Phone [phone] Care Team Providers Care Athletic Equipment Custodian Name Role Phone Foster Zuniga MD Primary Care Provider [phone] Reason for Visit * Reason Comments Rheum Follow Up recheck * Evaluate & Treat - Unlimited Visits (Within 10 days (routine)) - Authorized Specialty Diagnoses / Procedures Referred By Obed briones Referred To Contact Rheumatology Diagnoses Age-related osteoporosis without current pathological fracture Foster Zuniga MD [address] [place] [address] Referral ID Status Reason Start Date Expiration Date Visits Requested Visits Authorized [id number] Authorized Specialty Services Required 05/23/2023 999 [id number] Encounter Details Date Type Department Care Team (Late st Contact Info) Description 06/27/2023 2:00 PM EST Office Visit Rheumatology [place] [address] [place] [address] Cr Gill PA-C [facility] [place] [address] Age-related osteoporosis without current pathological fracture* Allergies Active Allergy Reactions Criticality Noted Date [...] directed via G tube via bolus syringe 58755 mL 11 08/17/2022 Active Levothyroxine Sodium 100 MCG Oral Tablet (Levoxyl)Indication s:Acquired hypothyroidism Take 1 Tablet by mouth in the morning. (at least 30 min prior to breakfast or other meds). 30 Tablet 5 05/14/2023 Active Polymyxin B-Trimethoprim 90565-8.1 UNIT/ML-% Ophthalmic Solution Instill 1 Drop into both eyes every 3 hours while awake for 7 days. (6 times a day) for 7 days. 10 mL 0 06/11/2023 06/27/19 24 Discontinued Cephalexin 250 MG/5ML Oral Suspension Reconstituted (Keflex) Take 10 mL by mouth in the morning and 10 mL before bedtime. 100 mL 0 06/22/2023 06/27/19 24 Discontinued documented as of this encounter (statuses as [...] mRNA, LNP-s, No Pre serve, 2-Dose Series ([employer]) 03/16/2021,08/12/2020,07/22/2020 Covid-19, Mrna, Lnp-s, Pf, B ivalent, 30 Mcg, IM, 12 yrs and above ([employer]) 02/24/2022 Pneumococcal Conjugate Vacc, 13 Valent (Prevnar) [...] Date Smoking Tobacco: Never Smokeless Tobacco: Never Tobacco Cessation:Counseling Given: Not Answered Alcohol Use Standard Drinks/Week Comments No 0 [...] - - Temperature 36.6 C (97.8 F) 06/27/2023 1:54 PM ES T Respiratory Rate - - Oxygen Saturation - - Inhaled Oxygen Concentration - - Weight 50.8 kg (112 lb) 06/27/2023 1:54 PM EST Height - - Body Mass Index 19.22 06/27/2023 11:42 AM EST documented in this [...] as of this encounter Progress Notes * Cr Gill PA-C - 06/27/2023 1:56 PM EST [facility] ([facility] follow up Supervised by: Dr. Hema García Previous Visit Plan from 02/06/2022 reviewed. Reason for visit: Patient seen today for further follow-up/evaluation of osteoporosis. Bone Health Summary: Fosamax/Alendronate 4280-6065, 6284-1793, Prolia 2020 to 2021 for three doses Risks: Falls since last [facility] visit: no Personal History of Fx since last [facility] Visit: no Prevention: Exercise : 3 or more times weekly: No Nutrition: eats calcium rich foods, No. Nutrition via peg tube Gait: unsteady with walking, No, use of cane/walker, No, Calcium and Vitamin D supplements in adequate doses: No Current Smoker: No Chronic Glucocorticoid use: No Rheumatoid Arthritis: No Alcohol 3 or more per day: No ROS: All other review of systems reviewed and negative other than mentioned in HPI. Medications: Current Outpatient Medications Medication Sig Dispense Refill Acetaminophen Childrens 160 MG/5ML Oral Solution Administer into feeding tube 640 mg 4 times a day as needed for Pain. Fibersource HN Oral Liquid Administer 6 cans daily as directed via G tube via bolus syringe 01318 mL 11 Levothyroxine Sodium 100 MCG Oral Tablet (Levoxyl) Take 1 Tablet by mouth in the morning. (at least30 min prior to breakfast or other meds). 30 Tablet 5 No current facility-administered medications for this visit. Social History: Social History Tobacco Use Smoking status: Never Smokeless tobacco: Never Vaping Use Vaping Use: Never used Substance Use Topics Alcohol use: No Drug use: No PHYSICAL EXAM: General appearance: NAD Eyes: Normal Heme/Lymph: goiter: No Musculoskeletal: Kyphosis Yes, severe Heart: normal Lungs: normal Neuro: no focal findings Diagnostic Testing: Results of labs and DXA were reviewed and discussed with the patient. Labs: P[place]in-OH Vitamin D calcium creatinine DXA - Vertebral Fracture Assessment: Date: 05/21/23: RESULTS: Lumbar spine: 0.657 gms/cm2 T-score: -3.5 Right total hip: 0.576 gms/cm2 T-score: -3.0 Z-score: -1.0 Assessment: Plan: The following items are ordered or are in progress: 1. Education: Osteoporosis education was provided by the [facility] team (topics included disease process, DXA, calcium/vitamin D, osteoporosis medications - including administration instructions and risks/benefits, weight bearing exercise, fall prevention/safety). 2. Prevention: . Eye Examination recommended annually, as good vision may help to prevent falls . Exercise recommended: standing, walking, light lifting . Fall Prevention/Safety Education recommended and discussed 3. Osteoporosis Medications : Resume Prolia 60mg subcutaneous injection every 6 months Discussed Reclast as other option. She would like to proceed with above 4. Bone Density Testing: due 2 year(s) from previous 5. Laboratory: 25-OH Vitamin D calcium creatinine 6. Followup: Return to [facility] clinic in 1 year Nurse visit in one to two weeks for Prolia. Auth started. Cr Gill PA-C [facility] Team The patient was discussed with me. I agree with the findings and plan as documented by Cr [place] in this note. Hema García MD Rheumatology Department documented in this encounter Nursing Notes * Idalia Vivar LPN - 06/27/2023 1:53 PM EST Chief Complaint Patient presents with Rheum Follow Up recheck documented in this encounter Plan of Treatment Upcoming Encounters Date Type Department Care Team (Late st Contact Info) Description 06/29/2023 10:15 AM EST Imaging Radiology [facility] 1st Floor, [place] 132 [facility] [place] [address] 07/11/2023 11:45 AM EDT Office Visit Urology, [facility] 132 [facility] [place] [address] Spencer Kumari MD 27 [facility] [address] [place] [address] 07/11/2023 1:30 PM EDT Nurse Only Rheumatology [facility] 25[address] [facility] [place] [address] Pf, Nurse Rheum [facility] [place] [address] 09/03/2023 12:00 PM EDT Office Visit Gastroenterology, [facility] 132 [facility] [place] [address] Imtiaz Kinsey MD 132 [facility] [place] [address] 09/21/2023 3:00 PM EDT Office Visit Gynecology/Obstetrics [facility] [address] [place] [address] Balbina Naik CRNP [address] [place] [address] 11/27/2023 9:20 AM EDT Office Visit Family Practice [facility] [address] [place] [address] Foster Zuniga MD [address] [place] [address] Pending Results Name Type Priority Associated Diagnoses Date /Time 25-HYDROXY VITAMIN D Lab Routine Age-related osteoporosis without current pathological fracture 06/27/2023 2:32 PM EST BASIC METABOLIC PANEL Lab Routine Age-related osteoporosis without current pathological fracture 06/27/2023 2:32 PM EST Scheduled Orders Name Type Priority Associated Diagnoses Orde r Schedule 25-HYDROXY VITAMIN D Lab Routine Age-related osteoporosis without current pathological fracture Expected: 06/27/2023, Expires: 06/27/2024 BASIC METABOLIC PANEL Lab Routine Age-related osteoporosis without current pathological fracture Expected: 06/27/2023 (Approximate), Expires: 06/27/2024 Health Maintenance Due Date Last Done Comments [...] D LEVEL ONCE IN A LIFETIME-USE SMARTSET# [id number] Completed 01/10/2021, 09/25/2008 Influenza Vaccine (FLU shot) [...] patient or by statute hierarchy) Care Teams Athletic Equipment Custodian Relationship Specialty Start Date End Date Foster Zuniga MD [address] [place] [address] PCP - General Family Medicine 04/02/23 documented as of this encounter
--- OUTSIDE RECORDS SUMMARY | 2023-07-18 23:40 | External Medical Summary | Summary of Care ---
Author Name Unknown Organization [facility] Address [address] [facility] [place] [address] Phone [phone] Care Team Providers Care Financial Health Counselor Name Role Phone Foster Zuniga MD Primary Care Provider [phone] Reason for Visit * Reason Onset Date Comments Order Request 07/03/2023 prolia Encounter Details Date Type Department Care Team (Late st Contact Info) Description 07/03/2023 Telephone Rheumatology [facility] [address] [place] [address] Cr Gill PA-C [address] [place] [address] Order Request (prolia) Allergies Active Allergy Reactions Criticality Noted Date Comments Penicillins 10/25/1999 rash and given shot as a child, has tolerated augmentin ok as well as cephalosporin documented as of this encounter (statuses as of 07/03/2023) Medications Medication Sig Dispensed Refills Start Date End Date Status Acetaminophen Childrens 160 MG/5ML Oral Solution Administer into feeding tube 640 mg 4 times a day as needed for Pain. 0 Active Fibersource HN Oral LiquidIndications:Sev ere protein-calorie malnutrition (HCC) Administer 6 cans daily as directed via G tube via bolus syringe 58975 mL 11 08/17/2022 Active Levothyroxine Sodium 100 MCG Oral Tablet (Levoxyl)Indications: Acquired hypothyroidism Take 1 Tablet by mouth in the morning. (at least 30 min prior to breakfast or other meds). 30 Tablet 5 05/14/2023 Active Hospital, Clinic, or Other Facility Administered Medication Ordered Dose Route Frequency Start Date End Date Status Denosumab (Prolia) subcut inj 60 mgIndications:Senile osteoporosis 60 mg SC [id number] 07/11/2023 07/05/2024 Active documented as of this encounter (statuses as of 07/03/2023) Active Problems Problem Noted Date Diagnosed Date [...] as of this encounter (statuses as of 07/03/2023) Resolved Problems Problem Noted Date Diagnosed Date [...] as of this encounter (statuses as of 07/03/2023) Immunizations Name Administration Dates Next Due COVID-19 mRNA, LNP-s, No Pre serve, 2-Dose Series ([employer]) 03/16/2021,08/12/2020,07/22/2020 Covid-19, Mrna, Lnp-s, Pf, B ivalent, [...] encounter Miscellaneous Notes * Telephone Encounter - Verónica Ruiz LPN - 07/03/2023 3:40 PM EST Chart reviewed and labs noted to be within normal limits. Patient has been seen within the last 12 months by a Rheumatology provider. Prolia authorization approved and updated in referral. Last injection has been > 6 months and 1 day. CAM orders pended for signature. Thank you! documented in this encounter Plan of Treatment Upcoming Encounters Date Type Department Care Team (Late st Contact Info) Description 07/11/2023 11:45 AM EDT Office Visit Urology, [facility] 132 [facility] [place] [address] Spencer Kumari MD [address] [place] [address] [place] [address] 07/11/2023 1:30 PM EDT Nurse Only Rheumatology [address] [place] [address] Pf, Nurse Rheum [address] [place] [address] [place] [address] 09/03/2023 12:00 PM EDT Office Visit Gastroenterology, [facility] 132 [facility] [place] [address] Imtiaz Kinsey MD 132 [facility] [place] [address] 09/21/2023 3:00 PM EDT Office Visit Gynecology/Obstetrics [facility] 132 [facility] [place] [address] Balbina Naik CRNP [facility] [place] [address] 11/27/2023 9:20 AM EDT Office Visit Family Practice [facility] 132 [facility] [place] [address] Foster Zuniga MD [address] [facility] [place] [address] Health Maintenance Due Date Last Done Comments [...] D LEVEL ONCE IN A LIFETIME-USE SMARTSET# [id number] Completed 06/27/2023, 01/10/2021, 09/25/2008 GARDASIL-HPV IMMUNIZATION SERIES [...] Senile osteoporosis- Primary documented in this encounter Advance Directives Healthcare Agents on File Name Relationship Healthcare Agent Relationshi p Communication Cristobal Jackson Spouse Health Care Repr esentative (appointed verbally by patient or by statute hierarchy) Care Teams Financial Health Counselor Relationship Specialty Start Date End Date Foster Zuniga MD [address] [address] PCP - General Family Medicine 04/02/23 documented as of this encounter
--- OUTSIDE RECORDS SUMMARY | 2023-07-18 23:40 | External Medical Summary ---
Author Name Unknown Address Unknown Organization K01:LABORATORY [facility] - [address] [place] [address] Laboratory Report Ordering Provider Test Date Status MIGUELANGEL HOLLIS 06/27/2023 14:32:00 Final Observation Date Value Abnormality Reference (Units ) Status MYCODE SPECIMEN-SST 06/27/2023 14:32:00 Freezing of extracted DNA, whole blood and/or serum. Final Performing Location [facility] - [address] [place] [address]
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
--- OUTSIDE RECORDS SUMMARY | 2023-07-18 23:40 | External Medical Summary ---
Author Name Unknown Address Unknown Organization [id number]:[facility] [place] [address] Laboratory Report Ordering Provider Test Date Status BASILIO HAIR 06/27/2023 14:32:00 Final Observation Date Value Abnormality Reference (Units ) Status BUN 06/27/2023 14:32:00 31 Above high normal 6-20 (mg/dL) Final Creatinine 06/27/2023 14:32:00 0.6 0.5-1.0 (mg/dL) Final Glomerular filtration rate/1.73 sq M.predicted [Volume Rate/Area] in Serum, Plasma or Blood by Creatinine-based formula (CKD-EPI) 06/27/2023 14:32:00 90 >=60 (mL/min) Final eGFR is calculated based on the CKD-EPI 2020 equation SODIUM 06/27/2023 14:32:00 143 135-146 (m mol/L) Final Potassium 06/27/2023 14:32:00 4.3 3.5-5.1 (m mol/L) Final Cl 06/27/2023 14:32:00 103 98-107 (mm ol/L) Final CO2 06/27/2023 14:32:00 29 22-32 (mmo l/L) Final Anion gap 06/27/2023 14:32:00 11 7-15 (mmol /L) Final Glucose 06/27/2023 14:32:00 100 70-120 (mg /dL) Final Calcium 06/27/2023 14:32:00 9.9 8.4-10.2 ( mg/dL) Final Performing Location [facility] [place] [address]
--- OUTSIDE RECORDS SUMMARY | 2023-07-18 23:40 | External Medical Summary ---
Author Name Unknown Address Unknown Organization [id number]:[facility] [place] [address] [place] [address] Laboratory Report Ordering Provider Test Date Status LAXMIBASILIO 06/27/2023 14:32:00 Final Deficient: <20 ng/mL
Ins ufficient: 20-29 ng/mL
Recommended/Optimum:30-50 ng/mL

Vitamin D intoxication is rare. If suspicious of Vitamin D toxicity, evaluation of serum Calcium and PTH is recommended. Observation Date Value Abnormality Reference (Units ) Status 25-OH Vitamin D total 06/27/2023 14:32:00 39 >19 (ng/mL) Final Performing Location [facility] - [address] [place] [address]
--- OUTSIDE RECORDS SUMMARY | 2023-07-18 23:40 | External Medical Summary | Summary of Care ---
Author Name Unknown Organization [facility] Address [address] [place] [address] Phone [phone] Care Team Providers Care Glove Sewer Name Role Phone Foster Zuniga MD Primary Care Provider [phone] Reason for Visit * Reason Onset Date Comments Med Request 06/11/2023 Encounter Details Date Type Department Care Team (Late st Contact Info) Description 06/11/2023 Telephone Family Practice [facility] [address] [place] [address] Foster Zuniga MD [address] [place] [...] directed via G tube via bolus syringe 46630 mL 11 08/17/2022 Active Levothyroxine Sodium 100 MCG Oral Tablet (Levoxyl)Indication s:Acquired hypothyroidism Take 1 Tablet by mouth in the morning. (at least 30 min prior to breakfast or other meds). 30 Tablet 5 05/14/2023 Active Polymyxin B-Trimethoprim 89971-6.1 UNIT/ML-% Ophthalmic Solution Instill 1 Drop into [...] mRNA, LNP-s, No Pre serve, 2-Dose Series ([employer]) 03/16/2021,08/12/2020,07/22/2020 Covid-19, Mrna, Lnp-s, Pf, B ivalent, [...] Notes * Telephone Encounter - Saniya Holloway [facility] - 06/12/2023 9:22 AM EST Desmond calling in regarding Cephalexin 250 MG/5ML Oral Suspension Reconstituted (Keflex) he said the medication was reduced from 10 days to 5 and he is not sure if that was intentional or not. Please advise. Thank you, Saniya Holloway CPht Rn Care Transition II [facility] ([facility]) 06/12/2023, 9:23 AM * Telephone Encounter - Foster Zuniga MD - 06/12/2023 7:53 AM EST sent * Telephone Encounter - Lyssa Lagos PHARM Tech - 06/11/2023 3:02 PM EST Pharmacy called stating pt has a tube so she needs liquid antibiotics. Pharmacist said they do havecephalexin suspension but they need a script. Thanks, Lyssa Lagos [employer] [facility] 06/11/2023,3:04 PM documented in this encounter Plan of Treatment Upcoming Encounters Date Type Department Care Team (Late st Contact Info) Description 06/18/2023 1:10 PM EST Nutrition Services Nutrition & Weight Management, [facility] [address] [place] [address] Vannessa Fuentes RDN [address] [place] [address] 06/20/2023 2:30 PM EST Office Visit Gynecology/Obstetrics [facility] [address] [place] [address] Balbina Naik CRNP [address] [place] [address] 06/27/2023 2:00 PM EST Office Visit [address]umatology [address] [address] Cr Gill PA-C [address] [facility] [place] [address] 06/29/2023 10:00 AM EST Imaging Radiology [facility] 1st [facility] [place] [address] [facility] [place] [address] 07/11/2023 11:45 AM EDT Office Visit Urology, [facility] 132 [facility] [place] [address] Spencer Kumari MD [address] [address] [place] [address] 09/03/2023 12:00 PM EDT Office Visit Gastroenterology, [facility] 132 [facility] [place] [address] Imtiaz Kinsey MD 132 [place] [address] 11/27/2023 9:20 AM EDT Office Visit Family Practice [facility] 132 [facility] [place] [address] Foster Zuniga MD 132 [facility] [place] [address] Health Maintenance Due Date Last Done Comments [...] D LEVEL ONCE IN A LIFETIME-USE SMARTSET# [id number] Completed 01/10/2021, 09/25/2008 Influenza Vaccine (FLU shot) [...] patient or by statute hierarchy) Care Teams Glove Sewer Relationship Specialty Start Date End Date Foster Zuniga MD [address] [place] [address] PCP - General Family Medicine 04/02/23 documented as of this encounter
--- OUTSIDE RECORDS SUMMARY | 2023-07-18 23:40 | External Medical Summary | Summary of Care ---
Author Name Unknown Organization [facility] Address [address] [place] [address] Phone [phone] Care Team Providers Care Inspector Soldering Name Role Phone Marco Watkins MD Primary Care Provider [phone] Reason for Visit * Reason Onset Date Comments Medication Refill 06/25/2023 Encounter Details Date Type Department Care Team (Late st Contact Info) Description 06/22/2023 Refill Family Practice [facility] 132 [facility] [place] [address] Marco Watkins MD 132 [facility] [place] [address] Allergies Active Allergy Reactions Criticality Noted Date Comments Penicillins 10/25/1999 rash and given shot as a child, has tolerated augmentin ok as well as cephalosporin documented as of this encounter (statuses as of 06/25/2023) Medications Medication Sig Dispensed Refills Start Date End Date Status Acetaminophen Childrens 160 MG/5ML Oral Solution Administer into feeding tube 640 mg 4 times a day as needed for Pain. 0 Active Fibersource HN Oral LiquidIndications:Se yancy protein-calorie malnutrition (HCC) Administer 6 cans daily as directed via G tube via bolus syringe 90739 mL 11 08/17/2022 Active Levothyroxine Sodium 100 MCG Oral Tablet (Levoxyl)Indications :Acquired hypothyroidism Take 1 Tablet by mouth in the morning. (at least 30 min prior to breakfast or other meds). 30 Tablet 5 05/14/2023 Active Cephalexin 250 MG/5ML Oral Suspension Reconstituted (Keflex) Take 10 mL by mouth in the morning and 10 mL before bedtime. 100 mL 0 06/22/2023 Active Cephalexin 250 MG/5ML Oral Suspension Reconstituted (Keflex) Take 10 mL by mouth in the morning and 10 mL before bedtime. 100 mL 0 06/12/2023 Discontinue d(Refill) documented as of this encounter (statuses as of 06/25/2023) Active Problems Problem Noted Date Diagnosed Date [...] as of this encounter (statuses as of 06/25/2023) Resolved Problems Problem Noted Date Diagnosed Date [...] as of this encounter (statuses as of 06/25/2023) Immunizations Name Administration Dates Next Due COVID-19 mRNA, LNP-s, No Pre serve, 2-Dose Series (Pfizer) 03/16/2021,08/12/2020,07/22/2020 Covid-19, Mrna, Lnp-s, Pf, B ivalent, [...] encounter Miscellaneous Notes * Telephone Encounter - Marco Watkins MD - 06/22/2023 4:01 PM ESTSigned Prescriptions: Disp Refills Cephalexin 250 MG/5ML Oral Suspension Álvaro*100 mL 0 Sig: Take 10mL by mouth in the morning and 10 mL before bedtime.Authorizing Provider: MARCO WATKINS------ * Telephone Encounter - Sherri Umanzor RN - 06/22/2023 2:01 PM EST Patients left a VM on CM line reporting that once again, sharmin is having sinus infection symptoms and her L breast has again became inflamed/mastitis. Dr. Watkins, No openings, would you want to send an antibiotic? This treated symptoms the last time? Thank you! * Telephone Encounter - Ashley Hopson OSA - 06/22/2023 10:00 AM EST No Appointments Available Patient declined appointments?: n/a What Visit Type is needed? Acute If Acute Visit Type is needed, were surrounding clinics offered to patient (Yes/No)? Yes Was patient offered appointments with other available providers (Yes/No)? Yes See Call Details? (Yes or No): Yes documented in this encounter Plan of Treatment Upcoming Encounters Date Type Department Care Team (Late st Contact Info) Description 06/27/2023 12:00 PM EST Office Visit Gynecology/Obstetrics [facility] 132 [facility] [place] [address] Balbina Naik CRNP [address] [place] [address] 06/27/2023 2:00 PM EST Office Visit Rheumatology [place] [address] [facility] [place] [address] Cr Gill PA-C [facility] [place] [address] 06/29/2023 10:15 AM EST Imaging Radiology [facility] 1st [facility] [address] [place] [address] 07/11/2023 11:45 AM EDT Office Visit Urology, [facility] 132 [facility] [place] [address] Spencer [facility] MD [facility] [address] [place] [address] 09/03/2023 12:00 PM EDT Office Visit Gastroenterology, [facility] 132 [facility] [place] [address] Imtiaz Kinsey MD 132 [facility] [place] [address] 11/27/2023 9:20 AM EDT Office Visit Family Practice [facility] 132 [facility] [place] [address] Marco Watkins MD 132 [facility] [place] [address] Health Maintenance Due Date Last Done Comments [...] D LEVEL ONCE IN A LIFETIME-USE SMARTSET# [id number] Completed 01/10/2021, 09/25/2008 Influenza Vaccine (FLU shot) [...] patient or by statute hierarchy) Care Teams Inspector Soldering Relationship Specialty Start Date End Date Marco Watkins MD [address] [place] [address] PCP - General Family Medicine 04/02/23 documented as of this encounter
--- OUTSIDE RECORDS SUMMARY | 2023-07-18 23:40 | External Medical Summary | Summary of Care ---
Author Name Unknown Organization [facility] Address [address] [place] [address] Phone [phone] Care Team Providers Care Track Walker Name Role Phone Foster Zuniga MD Primary Care Provider [phone] Encounter Details Date Type Department Care Team (Late st Contact Info) Description 06/22/2023 Refill Family Practice [facility] [address] [place] [address] Foster Zuniga MD [address] [place] [address] Allergies Active Allergy Reactions Criticality Noted Date Comments Penicillins 10/25/1999 rash and given shot as a child, has tolerated augmentin ok as well as cephalosporin documented as of this encounter (statuses as of 06/22/2023) Medications Medication Sig Dispensed Refills Start Date End Date Status Acetaminophen Childrens 160 MG/5ML Oral Solution Administer into feeding tube 640 mg 4 times a day as needed for Pain. 0 Active Fibersource HN Oral LiquidIndications:Se yancy protein-calorie malnutrition (HCC) Administer 6 cans daily as directed via G tube via bolus syringe 11891 mL 11 08/17/2022 Active Levothyroxine Sodium 100 [...] as of this encounter (statuses as of 06/22/2023) Active Problems Problem Noted Date Diagnosed Date [...] as of this encounter (statuses as of 06/22/2023) Resolved Problems Problem Noted Date Diagnosed Date [...] as of this encounter (statuses as of 06/22/2023) Immunizations Name Administration Dates Next Due COVID-19 [...] L breast has again became inflamed/mastitis. Dr. Zuniga, No openings, would you want to send [...] 06/27/2023 12:00 PM EST Office Visit Gynecology/Obstetrics [facility] 132 [facility] [place] [address] Balbina Naik CRNP [address] [place] [address] 06/27/2023 2:00 PM EST Office Visit Rheumatology [address] [place] [address] Cr Gill PA-C [address] [place] [address] [place] [address] 06/29/2023 10:15 AM EST Imaging Radiology [facility] 1st Floor, [place] 132 [facility] [place] [address] 07/11/2023 11:45 AM EDT Office Visit Urology, [facility] 132 [facility] [place] [address] Spencer Kumari MD [address] [place] [address] [place] [address] 09/03/2023 12:00 PM EDT Office Visit Gastroenterology, [facility] 132 [facility] [place] [address] Imtiaz Kinsey MD 132 [facility] [place] [address] 11/27/2023 9:20 AM EDT Office Visit Family Practice [facility] [address] [place] [address] Foster Zuniga MD [address] [place] [address] Health Maintenance Due Date Last Done Comments [...] D LEVEL ONCE IN A LIFETIME-USE SMARTSET# [id number] Completed 01/10/2021, 09/25/2008 Influenza Vaccine (FLU shot) [...] patient or by statute hierarchy) Care Teams Track Walker Relationship Specialty Start Date End Date Foster Zuniga MD [address] [place] [address] PCP - General Family Medicine 04/02/23 documented as of this encounter
--- OUTSIDE RECORDS SUMMARY | 2023-07-18 23:40 | External Medical Summary | Summary of Care ---
Author Name Unknown Organization [facility] Address [address] [place] [address] Phone [phone] Care Team Providers Care Washer And Capper Machine Operator Name Role Phone Foster Zuniga MD Primary Care Provider [phone] Reason for Visit * Reason Comments Rheum Follow Up recheck * Evaluate & Treat - Unlimited Visits (Within 10 days (routine)) - Authorized Specialty Diagnoses / Procedures Referred By Obed briones Referred To Contact Rheumatology Diagnoses Age-related osteoporosis without current pathological fracture Foster Zuniga MD [address] [place] [address] Referral ID Status Reason Start Date Expiration Date Visits Requested Visits Authorized [id number] Authorized Specialty Services Required 05/23/[id number] Encounter Details Date Type Department Care Team (Late st Contact Info) Description 06/27/2023 2:00 PM EST Office Visit Rheumatology [place] [phone] [place] [address] Cr Gill PA-C [facility] [place] [address] Age-related osteoporosis without current pathological fracture* Allergies [...] directed via G tube via bolus syringe 95053 mL 11 08/17/2022 Active Levothyroxine Sodium 100 MCG Oral Tablet (Levoxyl)Indication s:Acquired hypothyroidism Take 1 Tablet by mouth in the morning. (at least 30 min prior to breakfast or other meds). 30 Tablet 5 05/14/2023 Active Polymyxin B-Trimethoprim 93317-7.1 UNIT/ML-% Ophthalmic Solution Instill 1 Drop into [...] mRNA, LNP-s, No Pre serve, 2-Dose Series ([employer]) 03/16/2021,08/12/2020,07/22/2020 Covid-19, Mrna, Lnp-s, Pf, B ivalent, 30 Mcg, IM, 12 yrs and above ([employer]) 02/24/2022 Pneumococcal Conjugate Vacc, 13 Valent (Prevnar) [...] No 02/22/2015 documented as of this encounter Nursing Notes * Idalia Vivar LPN - 06/27/2023 1:53 PM EST Chief Complaint Patient presents with Rheum Follow Up recheck documented in this encounter Plan of Treatment Upcoming Encounters Date Type Department Care Team (Late st Contact Info) Description 06/27/2023 3:00 PM EST Laboratory Laboratory, [address] [id number] [address] [address] Arrived 06/29/2023 10:15 AM EST Imaging Radiology [facility] 1st Floor, [address] [place] [address] 07/11/2023 11:45 AM EDT Office Visit Urology, [facility] 132 [facility] [place] [address] Spencer Kumari MD [address] [place] [address] [place] [address] 07/11/2023 1:30 PM EDT Nurse Only Rheumatology [place] [id number] [facility] [place] [address] Pf, Nurse Rheum [facility] [place] [address] 09/03/2023 12:00 PM EDT Office Visit Gastroenterology, [facility] 132 [facility] [place] [address] Imtiaz Kinsey MD [facility] [place] [place] [address] 09/21/2023 3:00 PM EDT Office Visit Gynecology/Obstetrics [facility] 132 [facility] [place] [address] Balbina Naik CRNP [facility] [place] [address] 11/27/2023 9:20 AM EDT Office Visit Family Practice [facility] [place], [place] [address] Foster Zuniga MD 132 [facility] [place] [address] Scheduled Orders Name Type Priority Associated Diagnoses [...] D LEVEL ONCE IN A LIFETIME-USE SMARTSET# [id number] Completed 01/10/2021, 09/25/2008 Influenza Vaccine (FLU shot) [...] patient or by statute hierarchy) Care Teams Washer And Capper Machine Operator Relationship Specialty Start Date End Date Foster Zuniga MD [address] [place] [address] PCP - General Family Medicine 04/02/23 documented as of this encounter
--- OUTSIDE RECORDS SUMMARY | 2023-07-18 23:40 | External Medical Summary | Summary of Care ---
Author Name Unknown Organization [facility] Address [address] [place] [address] Phone [phone] Care Team Providers Care Counseling Specialist Name Role Phone Foster Zuniga MD Primary Care Provider [phone] Reason for Visit * Reason Comments Emergency Department Follow-Up Pt here f or ER follow up Encounter Details Date Type Department Care Team (Late st Contact Info) Description 06/11/2023 3:20 PM EST Office Visit Family Practice [facility] [place] [address] Foster Zuniga MD 132 [facility] [place] [address] History of mastitis*; Acquired hypothyroidism; Hx of breast cancer; History of tongue cancer; OAB (overactive bladder) Allergies Active Allergy Reactions Criticality Noted Date Comments Penicillins 10/25/1999 rash and given shot as a child, has tolerated augmentin ok as well as cephalosporin documented as of this encounter (statuses as of 06/11/2023) Medications Medication Sig Dispensed Refills Start Date End Date Status Acetaminophen Childrens 160 MG/5ML Oral Solution Administer into feeding tube 640 mg 4 times a day as needed for Pain. 0 Active Fibersource HN Oral LiquidIndications:Se yancy protein-calorie malnutrition (HCC) Administer 6 cans daily as directed via G tube via bolus syringe 51721 mL 11 08/17/2022 Active Levothyroxine Sodium 100 MCG Oral Tablet (Levoxyl)Indications :Acquired hypothyroidism Take 1 Tablet by mouth in the morning. (at least 30 min prior to breakfast or other meds). 30 Tablet 5 05/14/2023 Active Cephalexin 500 MG Oral Capsule Take 1 Capsule by mouth in the morning and 1 Capsule before bedtime. Do all this for 10 days. 20 Capsule 0 06/11/2023 06/21/2023 Active Polymyxin B-Trimethoprim 65920-1.1 UNIT/ML-% Ophthalmic Solution Instill 1 Drop into both eyes every 3 hours while awake for 7 days. (6 times a day) for 7 days. 10 mL 0 06/11/2023 06/18/2023 Active documented as of this encounter (statuses as of 06/11/2023) Active Problems Problem Noted Date Diagnosed Date [...] as of this encounter (statuses as of 06/11/2023) Resolved Problems Problem Noted Date Diagnosed Date [...] as of this encounter (statuses as of 06/11/2023) Immunizations Name Administration Dates Next Due COVID-19 mRNA, LNP-s, No Pre serve, 2-Dose Series ([employer]) 03/16/2021,08/12/2020,07/22/2020 Covid-19, Mrna, Lnp-s, Pf, B ivalent, 30 Mcg, IM, 12 yrs and above ([employer]) 02/24/2022 Pneumococcal Conjugate Vacc, 13 Valent (Prevnar) [...] Sign Reading Time Taken Comments Blood Pressure 120/72 06/11/2023 2:42 PM EST Pulse 68 06/11/2023 2:42 PM EST Temperature 36.7 C (98 F) 06/11/2023 2:42 PM EST Respiratory Rate 18 06/11/2023 2:42 PM EST Oxygen Saturation - - Inhaled Oxygen Concentration - - Weight 50.8 kg (112 lb) 06/11/2023 2:42 PM EST Height 162.6 cm (5' 4") 06/11/2023 2:42 PM EST Body Mass Index 19.22 06/11/2023 2:42 PM EST documented in this encounter Functional Status [...] as of this encounter Progress Notes * Foster Zuniga MD - 06/11/2023 10:35 PM EST SUBJECTIVE: Sharmin Jackson is a 78 year old female. Chief Complaint Patient presents with Emergency Department Follow-Up Pt here for ER follow up HPI: Er follow up for left breast mastitis. Resolved. 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 Fibersource HN Oral Liquid Administer 6 cans daily as directed via G tube via bolus syringe 82153 mL 11 Levothyroxine Sodium 100 MCG Oral Tablet (Levoxyl) Take 1 Tablet by mouth in the morning. (at least30 min prior to breakfast or other meds). 30 Tablet 5 Cephalexin 500 MG Oral Capsule Take 1 Capsule by mouth in the morning and 1 Capsule before bedtime.Do all this for 10 days. 20 Capsule 0 Polymyxin B-Trimethoprim 57495-2.1 UNIT/ML-% Ophthalmic Solution Instill 1 Drop into both eyes every 3 hours while awake for 7 days. (6 times a day) for 7 days. 10 mL 0 No current facility-administered medications for this visit. Allergy: Review of patient's allergies indicates: Allergen Reactions Penicillins rash and given shot as a child, has tolerated augmentin ok as well as cephalosporin OBJECTIVE: BP 120/72 | Pulse 68 | Temp 36.7 C (98 F) (Tympanic) | Resp 18 | Ht 1.626 m (5' 4") | Wt 50.8 kg (112 lb) | BMI 19.22 kg/m | BSA 1.51 m Gen: nad Breast: left breast w/o evidence of mastitis ASSESSMENT AND PLAN: (Z87.898) History of mastitis (primary encounter diagnosis) Plan: resolved (E03.9) Acquired hypothyroidism Plan: euthyroid (Z85.3) Hx of breast cancer Plan: noted (Z85.810) History of tongue cancer Plan: noted (N32.81) OAB (overactive bladder) Plan: stable Follow up as needed. No other complaints were offered at this time. Foster Zuniga MD documented in this encounter Nursing Notes * Yumiko Adames LPN - 06/11/2023 2:42 PM EST The patient has been properly identified by confirmation of name and date of . Chief Complaint Patient presents with Emergency Department Follow-Up Pt here for ER follow up documented in this encounter Plan of Treatment Upcoming Encounters Date Type Department Care Team (Late st Contact Info) Description 06/18/2023 1:10 PM EST Nutrition Services Nutrition & Weight Management, [facility] [address] [place] [address] Vannessa Fuentes RDN [address] [place] [address] 06/20/2023 2:30 PM EST Office Visit Gynecology/Obstetrics [facility] [address] [place] [address] Balbina Naik CRNP [address] [place] [address] 06/27/2023 2:00 PM EST Office Visit Rheumatology [address] [place] [address] Cr Gill PA-C [address] [place] [address] 06/29/2023 10:00 AM EST Imaging Radiology [facility] 1st [facility] [address] [place] [address] 07/11/2023 11:45 AM EDT Office Visit Urology, [facility] [place] [address] Spencer Kumari MD [address] [place] [address] 09/03/2023 12:00 PM EDT Office Visit Gastroenterology, [facility] [place] [address] Imtiaz Kinsey MD 132 [facility] [place] [address] 11/27/2023 9:20 AM EDT Office Visit Family Practice [facility] [place] [address] Foster Zuniga MD 132 [facility] [place] [address] Health Maintenance Due Date Last Done Comments [...] D LEVEL ONCE IN A LIFETIME-USE SMARTSET# [id number] Completed 01/10/2021, 09/25/2008 Influenza Vaccine (FLU shot) [...] as of this encounter Visit Diagnoses Diagnosis History of mastitis- Primary Personal history of other specified diseases Acquired hypothyroidism Unspecified hypothyroidism Hx of breast cancer Personal history of malignant neoplasm of breast History of tongue cancer Personal history of malignant neoplasm of tongue OAB (overactive bladder) Hypertonicity of bladder documented in this encounter Advance Directives Healthcare Agents on File Name Relationship Healthcare Agent Relationshi p Communication Cristobal Jackson Spouse Health Care Repr esentative (appointed verbally by patient or by statute hierarchy) Care Teams Counseling Specialist Relationship Specialty Start Date End Date Foster Zuniga MD [address] [place] [address] PCP - General Family Medicine 04/02/23 documented as of this encounter
--- OUTSIDE RECORDS SUMMARY | 2023-07-18 23:40 | External Medical Summary | Summary of Care ---
Author Name Unknown Organization [facility] Address [address] [place] [address] Phone [phone] Care Team Providers Care Recruitment Specialist Name Role Phone Foster Zuniga MD Primary Care Provider [phone] Reason for Visit * Reason Comments Outpatient Testing Encounter Details Date Type Department Care Team (Late st Contact Info) Description 06/27/2023 3:00 PM EST Laboratory Laboratory, [facility] 132 [facility] [place] [address] [facility] 132 [facility] [place] [address] [employer] Other*[id number]; Age-related osteoporosis without current pathological fracture Allergies Active Allergy Reactions Criticality Noted Date [...] directed via G tube via bolus syringe 47772 mL 11 08/17/2022 Active Levothyroxine Sodium 100 MCG Oral Tablet (Levoxyl)Indications: Acquired hypothyroidism Take 1 Tablet by mouth in the morning. (at least 30 min prior to breakfast or other meds). 30 Tablet 5 05/14/2023 Active documented as of this encounter (statuses [...] mRNA, LNP-s, No Pre serve, 2-Dose Series ([employer]) 03/16/2021,08/12/2020,07/22/2020 Covid-19, Mrna, Lnp-s, Pf, B ivalent, [...] No 02/22/2015 documented as of this encounter Plan of Treatment Upcoming Encounters Date Type Department Care Team (Late st Contact Info) Description 06/29/2023 10:15 AM EST Imaging Radiology [address] 132 [facility] [place] [address] 07/11/2023 11:45 AM EDT Office Visit Urology, [facility] [address] [facility] [place] [address] Spencer Kumari MD 27 [facility] [address] [place] [address] 07/11/2023 1:30 PM EDT Nurse Only Rheumatology [place] [address] [facility] [place] [address] Pf, Nurse Rheum [facility] [facility] [place] [address] 09/03/2023 12:00 PM EDT Office Visit Gastroenterology, [facility] [address] [place] [address] Imtiaz Kinsey MD [address] [place] [address] 09/21/2023 3:00 PM EDT Office Visit Gynecology/Obstetrics [facility] [address] [place] [address] Balbina Naik CRNP [facility] [place] [address] 11/27/2023 9:20 AM EDT Office Visit Family Practice [facility] [address] [facility] [place] [address] Foster Zuniga MD [address] [facility] [place] [address] Pending Results Name Type Priority Associated Diagnoses Date /Time MYCODE INITIAL ADULT Lab Routine [employer] Other*[id number] 06/27/2023 2:32 PM EST 25-HYDROXY VITAMIN D Lab Routine Age-related osteoporosis without current pathological fracture 06/27/2023 2:32 PM EST BASIC METABOLIC PANEL Lab Routine Age-related osteoporosis without current pathological fracture 06/27/2023 2:32 PM EST MYCODE INITIAL ADULT-PINK Lab Routine [employer] Other*[id number] 06/27/2023 2:32 PM EST MYCODE SST1 Lab Routine [employer] Other*[id number] 06/27/2023 2:32 PM EST MYCODE SST2 Lab Routine [employer] Other*[id number] 06/27/2023 2:32 PM EST Health Maintenance Due Date Last Done Comments [...] D LEVEL ONCE IN A LIFETIME-USE SMARTSET# [id number] Completed 01/10/2021, 09/25/2008 Influenza Vaccine (FLU shot) [...] as of this encounter Visit Diagnoses Diagnosis [employer] Other*[id number] Age-related osteoporosis without current pathological fracture Senile osteoporosis documented in this encounter Advance Directives Healthcare Agents on File Name Relationship Healthcare Agent Relationshi p Communication Cristobal Jackson Spouse Health Care Repr esentative (appointed verbally by patient or by statute hierarchy) Care Teams Recruitment Specialist Relationship Specialty Start Date End Date Foster Zuniga MD [address] [place] [address] PCP - General Family Medicine 04/02/23 documented as of this encounter
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
--- OUTSIDE RECORDS SUMMARY | 2023-07-18 23:40 | External Medical Summary ---
Author Name Unknown Address Unknown Organization K01:[facility] - [address] [place] [address] Laboratory Report Ordering Provider Test Date Status MIGUELANGEL HOLLIS 06/27/2023 14:32:00 Final Observation Date Value Abnormality Reference (Units ) Status MYCODE SPECIMEN-LAV 06/27/2023 14:32:00 Freezing of extracted DNA, whole blood and/or serum. Final Performing Location [facility] - [address] [place] [address]
--- OUTSIDE RECORDS SUMMARY | 2023-07-18 23:40 | External Medical Summary | Summary of Care ---
Author Name Unknown Organization [facility] Address [address] [facility] [place] [address] Phone [phone] Care Team Providers Care Deputy County Clerk Name Role Phone Foster Zuniga MD Primary Care Provider [phone] [phone] Reason for Visit * Reason Onset Date Comments Appointment 06/18/2023 Encounter Details Date Type Department Care Team (Late st Contact Info) Description 06/18/2023 Telephone Gynecology/Obstetrics [facility] [address] [place] [address] Balbina Naik CRNP [address] [place] [address] Appointment Allergies Active Allergy Reactions Criticality Noted [...] directed via G tube via bolus syringe 46344 mL 11 08/17/2022 Active Levothyroxine Sodium 100 MCG Oral Tablet (Levoxyl)Indications: Acquired hypothyroidism Take 1 Tablet by mouth in the morning. (at least 30 min prior to breakfast or other meds). 30 Tablet 5 05/14/2023 Active Polymyxin B-Trimethoprim 80833-8.1 UNIT/ML-% Ophthalmic Solution Instill 1 Drop into [...] mRNA, LNP-s, No Pre serve, 2-Dose Series ([employer]) 03/16/2021,08/12/2020,07/22/2020 Covid-19, Mrna, Lnp-s, Pf, B ivalent, [...] that" and will need to be rescheduled. Rig Manager, Please assist with reschedule of 3 month pessary appt Thank you documented in this encounter Plan of Treatment Upcoming Encounters Date Type Department Care Team (Late st Contact Info) Description 06/20/2023 2:30 PM EST Office Visit Gynecology/Obstetrics [facility] [address] [place] [address] Balbina Naik CRNP [address] [place] [address] 06/27/2023 2:00 PM EST Office Visit Rheumatology [place] [address] [facility] [place] [address] Cr Gill PA-C [address] [employer] [place] [address] 06/29/2023 10:00 AM EST Imaging Radiology [facility] 1st [facility] [address] [place] [address] 07/11/2023 11:45 AM EDT Office Visit Urology, [facility] [address] [place] [address] Spencer Kumari MD [address] [place] [address] [place] [address] 09/03/2023 12:00 PM EDT Office Visit Gastroenterology, [facility] [address] [place] [address] Imtiaz Kinsey MD [address] [place] [address] 11/27/2023 9:20 AM EDT Office Visit Family Practice [facility] [address] [place] [address] Foster Zuniga MD [address] [place] [address] Health Maintenance Due Date Last Done Comments [...] D LEVEL ONCE IN A LIFETIME-USE SMARTSET# [id number] Completed 01/10/2021, 09/25/2008 Influenza Vaccine (FLU shot) [...] patient or by statute hierarchy) Care Teams Deputy County Clerk Relationship Specialty Start Date End Date Foster Zuniga MD [address] [place] [address] PCP - General Family Medicine 04/02/23 documented as of this encounter
--- OUTSIDE RECORDS SUMMARY | 2023-07-18 23:40 | External Medical Summary | Summary of Care ---
Author Name Unknown Organization [facility] Address [address] [place] [address] Phone [phone] Care Team Providers Care Rainbow Trout Farm Manager Name Role Phone Foster Zuniga MD Primary Care Provider [phone] Encounter Details Date Type Department Care Team (Late st Contact Info) Description 07/03/2023 Orders Only Outcomes Research Department [address] [place] [address] Brinda Restrepo CHRA [employer] Other*[id number] Allergies Active Allergy Reactions Criticality Noted Date [...] directed via G tube via bolus syringe 19232 mL 11 08/17/2022 Active Levothyroxine Sodium 100 [...] mRNA, LNP-s, No Pre serve, 2-Dose Series ([employer]) 03/16/2021,08/12/2020,07/22/2020 Covid-19, Mrna, Lnp-s, Pf, B ivalent, 30 Mcg, IM, 12 yrs and above ([employer]) 02/24/2022 Pneumococcal Conjugate Vacc, 13 Valent (Prevnar) [...] 07/11/2023 11:45 AM EDT Office Visit Urology, [facility] [address] [place] [address] Spencer [facility]ari MD [facility] [address] [place] [address] 07/11/2023 1:30 PM EDT Nurse Only Rheumatology [place] [id number] [place] [address] Pf, Nurse Rheum [facility] [address] [place] [address] 09/03/2023 12:00 PM EDT Office Visit Gastroenterology, [facility] [address] [place] [address] Imtiaz Kinsey MD [address] [place] [address] 09/21/2023 3:00 PM EDT Office Visit Gynecology/Obstetrics [facility] [address] [place] [address] Balbina Naik CRNP [address] [place] [address] 11/27/2023 9:20 AM EDT Office Visit Family Practice [facility] [address] [place] [address] Foster Zuniga MD [address] [place] [address] Scheduled Orders Name Type Priority Associated Diagnoses Orde r Schedule MYCODE SUBSEQUENT ADULT Lab Routine [employer] Other*[id number] Every 6 Months for 2 Occurrences starting 07/03/2023 until 07/22/2024 Health Maintenance Due Date Last Done Comments [...] D LEVEL ONCE IN A LIFETIME-USE SMARTSET# [id number] Completed 06/27/2023, 01/10/2021, 09/25/2008 GARDASIL-HPV IMMUNIZATION SERIES [...] this encounter Visit Diagnoses Diagnosis [employer] Other*[id number] documented in this encounter Advance Directives Healthcare Agents on File Name Relationship Healthcare Agent Relationsal p Communication Crisotbal Jackson Spouse Health Care Repr esentative (appointed verbally by patient or by statute hierarchy) Care Teams Rainbow Trout Farm Manager Relationship Specialty Start Date End Date Foster Zuniga MD [address] [place] [address] PCP - General Family Medicine 04/02/23 documented as of this encounter
--- OUTSIDE RECORDS SUMMARY | 2023-07-18 23:41 | External Medical Summary | Summary of Care ---
Author Name Unknown Organization [facility] Address [address] [place] [address] Phone [phone] Care Team Providers Care Paper Products Printer Name Role Phone Foster Zuniga MD Primary Care Provider [phone] Reason for Visit * Reason Comments Acute Patient presents in office today for some concerns with her L breast, states red/tenderness/pain -- today.Patient also states she is not feeling very well today either, has some runny/stuffy nose, sinus pressure -- ongoing since yesterday Encounter Details Date Type Department Care Team (Late st Contact Info) Description 05/25/2023 11:00 AM EST Office Visit Family [facility] [place] [address] Ashley You CRNP [address] [facility] [place] [address] Acute mastitis*; Hx of breast cancer Allergies Active Allergy Reactions Criticality Noted Date Comments Penicillins 10/25/1999 rash and given shot as a child, has tolerated augmentin ok as well as cephalosporin documented as of this encounter (statuses as of 05/25/2023) Medications Medication Sig Dispensed Refills Start Date End Date Status Acetaminophen Childrens 160 MG/5ML Oral Solution Administer into feeding tube 640 mg 4 times a day as needed for Pain. 0 Active Fibersource HN Oral LiquidIndications:Sev ere protein-calorie malnutrition (HCC) Administer 6 cans daily as directed via G tube via bolus syringe 55216 mL 11 08/17/2022 Active Levothyroxine Sodium 100 MCG Oral Tablet (Levoxyl)Indications: Acquired hypothyroidism Take 1 Tablet by mouth in the morning. (at least 30 min prior to breakfast or other meds). 30 Tablet 5 05/14/2023 Active documented as of this encounter (statuses as of 05/25/2023) Active Problems Problem Noted Date Diagnosed Date [...] as of this encounter (statuses as of 05/25/2023) Resolved Problems Problem Noted Date Diagnosed Date [...] as of this encounter (statuses as of 05/25/2023) Immunizations Name Administration Dates Next Due COVID-19 mRNA, LNP-s, No Pre serve, 2-Dose Series (beatlab) 03/16/2021,08/12/2020,07/22/2020 Covid-19, Mrna, Lnp-s, Pf, B ivalent, [...] Reading Time Taken Comments Blood Pressure 120/72 05/25/2023 10:41 AM EST Pulse 67 05/25/2023 10:41 AM EST Temperature 37.8 C (100 F) 05/25/2023 10:41 AM ES T Respiratory Rate 18 05/25/2023 10:41 AM EST Oxygen Saturation 97% 05/25/2023 10:41 AM EST Inhaled Oxygen Concentration - - Weight - - Height 162.6 cm (5' 4") 05/25/2023 10:41 AM EST Body Mass Index - - documented in [...] as of this encounter Progress Notes * Ashley You CRNP - 05/25/2023 10:44 AM EST Images from the original note were not included. Follow up Family Medicine Visit CC: Chief Complaint Patient presents with Acute Patient presents in office today for some concerns with her L breast, states red/tenderness/pain --today. Patient also states she is not feeling very well today either, has some runny/stuffy nose, sinus pressure -- ongoing since yesterday History of Present Illness: Sharmin Jackson is a 77 year old female presenting today with her who communicates mostly forpatient. She is able to answer questions. Notes left breast pain, swelling and redness. Present for just today. She has been treated multipletimes for mastitis in the past. Treated with keflex in 03/30/2023 for left mastitis x 10 days. Today does have fever and sinus symptoms. Social History Socioeconomic History Marital status: Spouse name: Cristobal Number of children: 2 Years of education: Not on file Highest education level: Not on file Occupational History Not on file Tobacco Use Smoking status: Never Smokeless tobacco: Never Vaping Use Vaping Use: Never used Substance and Sexual Activity Alcohol use: No Drug use: No Sexual activity: Yes Partners: Male Other Topics Concern Service Not Asked Blood Transfusions Not Asked Caffeine Concern Not Asked Occupational Exposure Not Asked Hobby Hazards Not Asked Sleep Concern Not Asked Stress Concern Not Asked Weight Concern Not Asked Special Diet Yes Comment: milk twice daily Back Care Not Asked Exercise Yes Comment: walks Bike Helmet Not Asked Seat Belt Not Asked Self-Exams Yes Comment: occ Social History Narrative Not on file Social Determinants of Health Financial Resource Strain: Not on file Food Insecurity: No Food Insecurity (11/30/2022) Hunger Vital Sign Worried About Running Out of Food in the Last Year: Never true Ran Out of Food in the Last Year: Never true Transportation Needs: Not on file Physical Activity: Not on file Stress: Not on file Social Connections: Not on file Intimate Partner Violence: Not on file Housing Stability: Not on file PMH: Past Medical History: Diagnosis Date BMI less [...] of vaginal knapp has pessary in place Past Surgical History: Procedure Laterality Date CHANGE G-TUBE, PERC W/O IMAGING (QUALITY CONTROL MANAGER/RN) 06/05/2016 EGD, FLEXIBLE, DIAGNOSTIC 11/27/2012 UPPER GI ENDOSCOPY DIAGNOSTIC performed by Jacob Santos MD at [facility] EGD, FLEXIBLE, DIAGNOSTIC 10/01/2013 eso stricture, sm HH/ESOPHAGOGASTRODUODENOSCOPY (EGD), FLEXIBLE, TRANSORAL, DIAGNOSTIC performed byJacob Santos MD at ENDOSCOPY [facility] EGD, FLEXIBLE, DIAGNOSTIC 02/05/2014 ESOPHAGOGASTRODUODENOSCOPY (EGD), FLEXIBLE, TRANSORAL, DIAGNOSTIC performed by Adrian Muñoz MD at [facility] EGD, FLEXIBLE, DIAGNOSTIC N/A 03/18/2014 ESOPHAGOGASTRODUODENOSCOPY (EGD), FLEXIBLE, TRANSORAL, DIAGNOSTIC performed by Adrian Muñoz MD at ENDOSCOPY [facility] EGD, FLEXIBLE, DIAGNOSTIC 07/28/2014 ESOPHAGOGASTRODUODENOSCOPY (EGD), FLEXIBLE, TRANSORAL, DIAGNOSTIC performed by Adrian Muñoz MD at ENDOSCOPY [facility] EGD, FLEXIBLE, DIAGNOSTIC 12/25/2014 ESOPHAGOGASTRODUODENOSCOPY (EGD), FLEXIBLE, TRANSORAL, DIAGNOSTIC performed by Isaiah Sen MD at ENDOSCOPY [facility] EGD, FLEXIBLE, DIAGNOSTIC 05/13/2015 PEG placement/inpt [facility] EGD, FLEXIBLE, DIAGNOSTIC 05/10/2015 radiation changes, eso web, HH/inpt [facility] ESOPHAGOSCOPY, FLEXIBLE, TRANSENDOSCOPIC DILATION <30MM 07/09 [place] with dilatation PARTIAL MASTECTOMY 04/07/05 Left PM/SLNB at [facility] Dr. Sharma THORACOTOMY WITH EXPLORATION 1974 Thoracotomy,with biopsy Outpatient Medications Marked as Taking for the 05/25/23 encounter (Office Visit) with Ashley You CRNP Medication Sig Levothyroxine Sodium 100 MCG Oral Tablet (Levoxyl) Take 1 Tablet by mouth in the morning. (at least30 min prior to breakfast or other meds). Fibersource HN Oral Liquid Administer 6 cans daily as directed via G tube via bolus syringe Acetaminophen Childrens 160 MG/5ML Oral Solution Administer into feeding tube 640 mg 4 times a day as needed for Pain. Review of patient's allergies indicates: Allergen Reactions Penicillins rash and given shot as a child, has tolerated augmentin ok as well as cephalosporin Most Recent Immunizations Administered Date(s) Administered COVID-19 mRNA, LNP-s, No Preserve, 2-Dose Series (beatlab) 03/16/2021 Covid-19, Mrna, Lnp-s, Pf, Bivalent, 30 Mcg, IM, 12 yrs and above (Pfizer) 02/24/2022 Pneumococcal Conjugate Vacc, 13 Valent (Prevnar) 04/15/2018 Pneumococcal Polysaccharide PPV23 (Pneumovax) 06/25/2018 Season Influenza, Quad, PF, Adjuvanted, 65+ Yrs, IM (FLUAD) 01/12/2020 Seasonal Influenza, Quadrivalent Hd (Fluzone Hd) 03/12/2023 Seasonal Influenza, Split, IIV3, With Preserve, Inj 03/14/2006 Seasonal Influenza, Trivalent, Adjuvanted, 65+ yrs 01/17/2019 TDAP (age 10 and older)(Boostrix) 10/24/2022 TDAP (age 11 and older)(Adacel) 03/14/2006 Review of Systems: Review of Systems Constitutional: Positive for fatigue and fever. Neurological: Positive for headaches. Physical Exam: BP 120/72 | Pulse 67 | Temp 37.8 C (100 F) | Resp 18 | Ht 1.626 m (5' 4") | SpO2 97% | BMI 19.57 kg/m | BSA 1.53 m Physical Exam HENT: Head: Normocephalic. Eyes: Pupils: Pupils are equal, round, and reactive to light. Cardiovascular: Rate and Rhythm: Normal rate and regular rhythm. Pulmonary: Effort: Pulmonary effort is normal. Breath sounds: Normal breath sounds. Chest: Breasts: Left: Swelling and tenderness present. No nipple discharge. Comments: Erythema indurated Neurological: General: No focal deficit present. Mental Status: She is alert and oriented to person, place, and time. Psychiatric: Mood and Affect: Mood normal. Behavior: Behavior normal. Thought Content: Thought content normal. Judgment: Judgment normal. Assessment and Plan: 1. Acute mastitis Suspicious for sepsis- light headed, can't stand up, vitals stable. Low grade temp. Large, firm left red breast Hx of breast cancer Report called to "Chiquis" at [facility] ED 2. Hx of breast cancer I have advised the patient to call our office incase of any worsening or new symptoms. I spent a total of 40-54 minutes (exact time 40 mins) on the date of service in preparation, delivery, and documentation of the care provided to Sharmin Jackson excluding any time spent in the performance of separately billed services. Lana, MSN, CEASAR [facility] Medicine documented in this encounter Nursing Notes * Em Ramirez MED ASSIST - 05/25/2023 10:40 AM EST The patient has been properly identified by confirmation of name and date of . Chief Complaint Patient presents with Acute Patient presents in office today for some concerns with her L breast, states red/tenderness/pain --today. Patient also states she is not feeling very well today either, has some runny/stuffy nose, sinus pressure -- ongoing since yesterday documented in this encounter Plan of Treatment Upcoming Encounters Date Type Department Care Team (Late st Contact Info) Description 06/18/2023 1:10 PM EST Nutrition Services Nutrition & Weight Management, [facility] [address] [place] [address] Vannessa Fuentes RDN [address] [place] [address] 06/20/2023 2:30 PM EST Office Visit Gynecology/Obstetrics [facility] [address] [place] [address] Balbina Naik CRNP [address] [place] [address] 06/27/2023 2:00 PM EST Office Visit Rheumatology [facility] [address] [facility] [place] [address] Cr Gill PA-C [address] [facility] [place] [address] 06/29/2023 10:00 AM EST Imaging Radiology [facility] [facility] 132 [facility] [place] [address] 07/11/2023 11:45 AM EDT Office Visit Urology, [facility] [address] [facility] [place] [address] Spencer Kumari MD [address] [address] [place] [address] 09/03/2023 12:00 PM EDT Office Visit Gastroenterology, [facility] [address] [facility] [place] [address] Imtiaz Kinsey MD 132 [facility] [place] [address] 11/27/2023 9:20 AM EDT Office Visit Family Practice [facility] 132 [facility] [place] [address] Foster Zuniga MD 132 [facility] [place] [address] Health Maintenance Due Date Last Done Comments [...] D LEVEL ONCE IN A LIFETIME-USE SMARTSET# [id number] Completed 01/10/2021, 09/25/2008 Influenza Vaccine (FLU shot) [...] as of this encounter Visit Diagnoses Diagnosis Acute mastitis- Primary Inflammatory disease of breast Hx of breast cancer Personal history of malignant neoplasm of breast documented in this encounter Advance Directives Healthcare Agents on File Name Relationship Healthcare Agent [facility] Communication Cristobal Jackson Spouse Health Care Repr esentative (appointed verbally by patient or by statute hierarchy) Care Teams Paper Products Printer Relationship Specialty Start Date End Date Foster Zuniga MD [address] [place] [address] PCP - General Family Medicine 04/02/23 documented as of this encounter
--- OUTSIDE RECORDS SUMMARY | 2023-07-18 23:41 | External Medical Summary | Summary of Care ---
Author Name Unknown Organization [facility] Address [address] [facility] [place] [address] Phone [phone] Care Team Providers Care Appeals Board Referee Name Role Phone Foster Zuniga MD Primary Care Provider [phone] Encounter Details Date Type Department Care Team (Late st Contact Info) Description 05/25/2023 Result Scan Unspecified Department <No scans attached> Allergies Active Allergy Reactions Criticality Noted Date [...] directed via G tube via bolus syringe 26859 mL 11 08/17/2022 Active Levothyroxine Sodium 100 [...] mRNA, LNP-s, No Pre serve, 2-Dose Series ([place]) 03/16/2021,08/12/2020,07/22/2020 Covid-19, Mrna, Lnp-s, Pf, B ivalent, [...] EST Nutrition Services Nutrition & Weight Management, [facility] [address] [place] [address] Vannessa Fuentes RDN [address] [place] [address] 06/20/2023 2:30 PM EST Office Visit Gynecology/Obstetrics [facility] [address] [place] [address] Balbina Naik CRNP [address] [place] [address] 06/27/2023 2:00 PM EST Office Visit Rheumatology [place] [id number] [facility] [place] [address] Cr Gill PA-C [address] [facility] [place] [address] 06/29/2023 10:00 AM EST Imaging Radiology [facility] [facility] [address] [place] [address] 07/11/2023 11:45 AM EDT Office Visit Urology, [facility] 132 [facility] [place] [address] Spencer Kumari MD [address] [place] [address] [place] [address] 09/03/2023 12:00 PM EDT Office Visit Gastroenterology, [facility] 132 [facility] [place] [address] Imtiaz Kinsey MD 132 [facility] [place] [address] 11/27/2023 9:20 AM EDT Office Visit Family Practice [facility] 132 [facility] [place] [address] Foster Zuniga MD [address] [facility] [place] [address] Health Maintenance Due Date Last Done Comments [...] D LEVEL ONCE IN A LIFETIME-USE SMARTSET# [id number] Completed 01/10/2021, 09/25/2008 Influenza Vaccine (FLU shot) [...] Not on filedocumented as of this encounter Procedures Procedure Name Priority Date/Time Associated Diagnosis Comments RADIOLOGY SCANNED RESULT 05/25/2023 documented in this encounter Results * RADIOLOGY SCANNED RESULT (05/25/2023) 05/25/2023 No Physician Data Unknown DIAGNOSTIC RAD IOLOGY SERVICES documented in this encounter Advance Directives Healthcare Agents on File Name Relationship Healthcare Agent Relationshi p Communication Cristobal Jackson [facility] Health Care Repr esentative (appointed verbally by patient or by statute hierarchy) Care Teams Appeals Board Referee Relationship Specialty Start Date End Date Foster Zuniga MD [address] [address] PCP - General Family Medicine 04/02/23 documented as of this encounter
[2023-07-19 07:19] LABS: Base Excess VBG 0.9 mEq/L; HCO3 VBG 27 mmol/L; Oxygen Saturation VBG < 60.0 %; PCO2 VBG 46 mmHg (38-50); PO2 VBG 32 mmHg; pH VBG 7.37 (7.36-7.41)
[2023-07-19 07:48] LABS: Albumin Globulin Ratio 1.1 (0.9-2); Albumin Level 3.1 gm/dl (3.4-5.0); BUN Creatinine Ratio 33.8 (10-20); Bilirubin,Total 1.1 mg/dl (0.2-1.0); Creatinine Clr Calc Pharmacy 53.1 ml/min; Est GFR (African American) 96.4 ml/min; Est GFR (Non-African American) 83.2 ml/min; Globulin 2.8 gm/dl (2.5-4.0); Potassium 3.9 mmol/L (3.5-5.1); Total Protein 5.9 gm/dl (6.0-8.3)
[2023-07-19 08:00] LABS: Estimated Average Glucose 126 mg/dl
[2023-07-19 08:17] LABS: Basophils # (auto) 0.02 K/uL (0.00-0.20); Basophils % (auto) 0.2 %; Dohle Bodies 1+; Hemoglobin 11.1 g/dl (12.0-16.0); Immature Granulocytes # (auto) 0.15 K/uL (0.01-0.20); Immature Granulocytes % (auto) 1.6 %; Lymphocytes # (auto) 0.41 K/uL (1.20-3.40); Lymphocytes % (auto) 4.3 %; Mean Corpuscular Hemoglobin 30.4 pg (25.0-34.0); Mean Corpuscular Hgb Conc 32.6 g/dL (32.0-36.0); Mean Corpuscular Volume 93.2 fL (80.0-100.0); Mean Platelet Volume 12.5 fL (9.4-12.4); Monocytes # (auto) 0.28 K/uL (0.11-0.59); Neutrophils # (auto) 8.58 K/uL (1.40-6.50); Neutrophils % (auto) 90.9 %; Platelet Count 101 K/uL (130-400); RDW Coefficient of Variation 14.7 % (11.5-14.5); RDW Standard Deviation 50.2 fL (36.4-46.3); Red Blood Count 3.65 M/uL (4.20-5.40); Toxic Vacuolation 1+; White Blood Count 9.44 K/ul (4.8-10.8)
[2023-07-19] MEDS: LEVOTHYROXINE SODIUM 100 MCG TABLET GT SCH (09:06)
--- NOTE | 2023-07-19 10:52 | Hospitalist Progress Note ---
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 Severe sepsis Acute hypoxic respiratory failure Aspiration pneumonia Acute mastitis of left breast Lactic acidosis Metabolic encephalopathy Respiratory acidosis Blood cultures are pending, urine negative for infection Chest CT noted multifocal airspace opacities compatible with pneumonia Got IVF bolus for sepsis in ER Continue broad-spectrum IV antibiotics with cefepime and Flagyl Pulmonary toilet with hypertonic saline, flutter valve, incentive spirometry Lactic acid was 6.3 on presentation, trended down to 2.6 Follow up infectious workup Wean oxygen as tolerated L breast mastitis Hx of L breast Ca Continue IV antibiotics as above Had an episode in March as well Needs outpatient mammogram Elevated troponin Patient without chest pain Trop flat Likely demand ischemia Last echocardiogram 12/2022 revealed a preserved EF with mild MR/TR Hx of SCC of tongue S/p PEG tube NPO Nutrition on board Continue tube feeding regimen Hypothyroidism Chronic, stable Continue levothyroxine Constipation CT a/p reveals Large amount well-formed stool seen within the distal sigmoid colon/rectum. Continue bowel regimen DVT prophylaxis: Heparin DNR/DNI Dispo: PCU I spent a total of 55 minutes coordinating, documenting and providing care for this patient excluding time spent in performance of separately billed services Admission and Anticipated Discharge Date Admission Date: July 18, 2023 Subjective Patient seen and examined Patient has dysarthria from tongue cancer hx s/p radiation. Reports sinus drainage, weakness Denied cough or SOB this morning Denied chest pain Denied abd pain, diarrhea Reports no pain on left breast today Denied dysuria, freq, urgency at bedside Physical Exam Constitutional: + well hydrated; no acute distress Eyes: PERRL, conjunctivae normal, anicteric sclerae ENMT: Some rhinorrhea Respiratory: normal respiratory effort; no respiratory distress +crackles Cardiovascular: Rate/Rhythm: regular rate and regular rhythm S1 S2 Chest (Breasts): Additional Comments: Erythema over medial left breast Gastrointestinal (Abdomen): normal bowel sounds, soft, nontender, no hepatosplenomegaly PEG tube in situ Neurologic: PERRL, EOMI, +dysarthria Results & Data Results & Data Vital Signs (Past 12 Hours) Vital Signs Temp Pulse Pulse Resp BP Pulse Ox O2 Del Method 07/19/23 10:22 Nasal Cannula 07/19/23 07:55 36.8 C 75 18 129/58 L 100 Nasal Cannula, Nebulizer 07/19/23 07:13 72 16 97 Nasal Cannula 07/19/23 03:02 36.8 C 73 18 123/72 97 Nasal Cannula 07/18/23 23:00 57 L O2 Flow Rate 07/19/23 10:22 3 07/19/23 07:55 07/19/23 07:13 4 07/19/23 03:02 3 07/18/23 23:00 Laboratory Results Abnormal lab results 07/18/23 07/18/23 07/18/23 Range/Units 18:31 20:17 23:55 RBC (4.20-5.40) M/uL Hgb (12.0-16.0) g/dl Hct (37.0-47.0) % RDW Std Deviation (36.4-46.3) fL RDW Coeff of Elliot (11.5-14.5) % Plt Count (130-400) K/uL MPV (9.4-12.4) fL Neut # (Auto) (1.40-6.50) K/uL Lymph # (Auto) (1.20-3.40) K/uL Chloride (98-107) mmol/L BUN/Creatinine Ratio (10-20) Glucose (70-99(Fasting)) mg/dl POC Glucose 152 H (70-99) mg/dl Hemoglobin A1c (4.5-5.6) % Lactate 2.9 H* 2.6 H* (0.4-2.0) mmol/L Calcium (8.6-10.3) mg/dl Total Bilirubin (0.2-1.0) mg/dl Troponin I High Sens 131.4 H* (0-14) pg/ml Total Protein (6.0-8.3) gm/dl Albumin (3.4-5.0) gm/dl 07/19/23 07/19/23 07/19/23 Range/Units 06:11 07:09 11:58 RBC 3.65 L (4.20-5.40) M/uL Hgb 11.1 L (12.0-16.0) g/dl Hct 34.0 L (37.0-47.0) % RDW Std Deviation 50.2 H (36.4-46.3) fL RDW Coeff of Elliot 14.7 H (11.5-14.5) % Plt Count 101 L (130-400) K/uL MPV 12.5 H (9.4-12.4) fL Neut # (Auto) 8.58 H (1.40-6.50) K/uL Lymph # (Auto) 0.41 L (1.20-3.40) K/uL Chloride 112 H (98-107) mmol/L BUN/Creatinine Ratio 33.8 H (10-20) Glucose 140 H (70-99(Fasting)) mg/dl POC Glucose 156 H 106 H (70-99) mg/dl Hemoglobin A1c 6.0 H (4.5-5.6) % Lactate (0.4-2.0) mmol/L Calcium 8.0 L (8.6-10.3) mg/dl Total Bilirubin 1.1 H (0.2-1.0) mg/dl Troponin I High Sens (0-14) pg/ml Total Protein 5.9 L (6.0-8.3) gm/dl Albumin 3.1 L (3.4-5.0) gm/dl (3) Aspiration pneumonia Aspiration pneumonia type: unspecified Laterality: bilateral Lung location: lower lobe of lung Qualified Code(s): J69.0 - Pneumonitis due to inhalation of food and vomit
[2023-07-19] MEDS: ALUMINUM/MAGNESIUM SUSP 30 ML UDC PO PRN (13:40)
[2023-07-19] MEDS ORDERED: METOPROLOL TARTRATE 1 MG/ML VIAL IV PRN (19:19)
[2023-07-19] MEDS: METOPROLOL TARTRATE 1 MG/ML VIAL IV STA (19:32)
[2023-07-19] MEDS: NSS + 20MEQ KCL 20 MEQ/1,000 ML BAG IV ONE (20:06)
[2023-07-19] MEDS: DIGOXIN 250 MCG in SYRINGE 9 ML IV STA (20:15)
--- NOTE | 2023-07-19 20:30 | Communication Note ---
Date of Service: July 19, 2023 Patient with new onset rapid A-fib few hours ago as per AM provider and RN. Denies CP, SOB. SBP 90s after IV beta-ayde dose as per RN. Chronic bleeding oral wounds as per RN. 07/18 Hemoglobin 11.1 from 13 yesterday Platelet count 101 AP Hypotension post beta-ayde administration for new onset rapid A-fib New onset anemia, thrombocytopenia, chronic bleeding oral wounds IVF Digoxin 1 dose Titrate beta-ayde for rate control once patient normotensive Recheck CBC Hold heparin subcu for now
[2023-07-19] MEDS: METOPROLOL TARTRATE 25 MG TAB PO SCH (21:50)
[2023-07-19 22:27] LABS: Hematocrit (blood only) 35.7 % (37.0-47.0); Hemoglobin 11.8 g/dl (12.0-16.0); Mean Corpuscular Hemoglobin 30.3 pg (25.0-34.0); Mean Corpuscular Hgb Conc 33.1 g/dL (32.0-36.0); Mean Corpuscular Volume 91.5 fL (80.0-100.0); Mean Platelet Volume 13.2 fL (9.4-12.4); Platelet Count 104 K/uL (130-400); RDW Coefficient of Variation 14.6 % (11.5-14.5); RDW Standard Deviation 48.5 fL (36.4-46.3); White Blood Count 10.46 K/ul (4.8-10.8)
[2023-07-19 23:08] LABS: Basophils # (auto) 0.03 K/uL (0.00-0.20); Basophils % (auto) 0.3 %; Immature Granulocytes # (auto) 0.21 K/uL (0.01-0.20); Lymphocytes # (auto) 0.45 K/uL (1.20-3.40); Lymphocytes % (auto) 4.3 %; Monocytes # (auto) 0.23 K/uL (0.11-0.59); Monocytes % (auto) 2.2 %; Neutrophils # (auto) 9.54 K/uL (1.40-6.50); Neutrophils % (auto) 91.2 %
[2023-07-20] MEDS: METOPROLOL TARTRATE 1 MG/ML VIAL IV STA (00:02)
[2023-07-20] MEDS: METOPROLOL TARTRATE 25 MG TAB PO STA (00:23)
[2023-07-20 07:23] LABS: Hematocrit (blood only) 35.6 % (37.0-47.0); Hemoglobin 11.7 g/dl (12.0-16.0); Mean Corpuscular Hemoglobin 30.2 pg (25.0-34.0); Mean Corpuscular Hgb Conc 32.9 g/dL (32.0-36.0); Mean Platelet Volume 13.5 fL (9.4-12.4); Platelet Count 107 K/uL (130-400); RDW Coefficient of Variation 14.6 % (11.5-14.5); Red Blood Count 3.87 M/uL (4.20-5.40); White Blood Count 10.23 K/ul (4.8-10.8)
[2023-07-20 07:55] LABS: BUN Creatinine Ratio 41.7 (10-20); Calcium 8.4 mg/dl (8.6-10.3); Creatinine Clr Calc Pharmacy 75.2 ml/min; Est GFR (African American) 108.1 ml/min; Est GFR (Non-African American) 93.3 ml/min; Magnesium 1.9 mg/dl (1.7-2.4); Potassium 3.8 mmol/L (3.5-5.1)
--- NOTE | 2023-07-20 07:59 | Cardiology Consultation ---
Date of Consultation July 20, 2023 Assessment & Plan (1) Atrial flutter: (2) Elevated troponin: Plan IMPRESSION: 78-year-old medically complex female who presented with altered mental status and generalized weakness. Sepsis secondary to pneumonia. Being treated with antibiotics. New onset PAF/Flutter in the setting of acute illness-- treated with IV Lopressor and IV Dig. AC deferred due to anemia/thrombocytopenia, and chronic bleeding oral wounds. Elevated troponin likely in the setting of demand. Low likelihood for ACS. PLAN: Atrial flutter/fibrillation Elevated tropinin -New onset AFIB/Flutter with RVR in the setting of acute illness. -Tachycardic rates -Increase metoprolol tartrate to 25 mg Q6 hrs -Not currently on AC per primary service due to bleeding and anemia as above. Increased risk of thromboembolism due to PAF, cancer, and immobility-- risk discussed with family. Further recommendations following discussion with Dr. Lozano. -Replace electrolytes to a K goal of 4.0 and mag of 2.[address] Lozano. Further recommendations pending his assessment. I spent a total of 40 minutes on the date of service in preparation, delivery, and documentation of the care provided to the patient excluding any time spent in the performance of separately billed services. CEASAR Osorio Department of Cardiology, [facility] This chart was completed in part utilizing Speech Voice Recognition Software. Grammatical errors, random word insertions, pronoun errors, and incomplete sentences are an occasional consequence of this system due to software limitations, ambient noise, and hardware issues. Any formal questions or concerns about the content, text, or information contained within the body of this dictation should be directly addressed to the provider for clarification. Supervising Physician Co-Signing Physician Notes I have reviewed the advance practitioner's documentation, and I agree with, and take responsibility for the plan of care. 78-year female seen and examined at bedside. Reports palpitations. Denies chest discomfort or shortness of breath. PE: Gen: Chronically ill. NAD. Awake and alert. Heart: Irregular rhythm, tachycardia, normal S1-S2. No murmur. Lungs: Diminished breath sounds bilateral. No rhonchi or wheeze. Extremities: No edema. A/P: 78-year-old female with sepsis and pneumonia developed paroxysmal atrial fibrillation and rapid ventricular response. Recommend titration of Lopressor to 25 mg every 6 hours. Anticoagulation was not initiated last night due to history of oral ulcers and anemia. Risk versus benefit discussed with patient and her at bedside. Agreeable to initiate anticoagulation with IV heparin. If IV heparin tolerated, and hemoglobin remains stable, transition to oral Eliquis at discharge. Thank you for allow me to participate in the care of your patient. I spent a total of 30 minutes on the date of service in preparation, delivery, a nd documentation of the care provided to this patient, excluding any time spent in the performance of separately billed services. History of Present Illness Reason for Consultation: Abnormal EKG Requesting Physician: Rogerio connors Attending Physician: Radha Brooks MD History of Present Illness 78-year-old female who presented to [facility] emergency department on 07/18/2023 due to generalized weakness and altered mental status. Found to be septic. CT of the chest was concerning for multifocal pneumonia. Blood cultures pending, currently no growth. Urine culture negative. In the emergency department patient was hypotensive and tachycardic and required supplemental oxygen therapy. Treated with IV fluids. Her initial lactic acid was 6.4, troponin 129.5>>127>>131. VBG revealed a respiratory acidosis. She received broad-spectrum IV antibiotics with cefepime and Flagyl. EKG 07/18/2023 at 11:21 AM was a very poor tracing but read as atrial fib with PVCs however upon personal interpretation while the rhythm is irregular it seems to be more sinus rhythm with PACs. Rates controlled in the 80s. Repeat EKG dated 07/18/2023 at 16:07pm showed sinus rhythm with a first-degree AV block and PACs. Patient does not carry a history of atrial fibrillation. This is new. Telemetry: On 07/19/2023 at 1805 patient converted to atrial flutter in the 130- 150s. Has been sustaining in the 120s-140s range over night. Had a brief episode of SR from 20:09-20:15, no conversion pause. EKG this am showing AFIB with RVR, 142 bpm. Upon entrance into the room patient resting in bed. at bedside. No acute distress. No chest pain. Mild dyspnea,+cough. +racing palpitations. No dizziness, syncope or near syncope. No orthopnea, PND, or increased lower extremity edema. No fever, chills, cough, hematochezia, melena, or hemoptysis. Primary outpatient travel administrator: Dr. Carbajal, also has followed with the undersigned. Past medical history: 1.Coronary artery calcification per CT scan 08/2022 2.History of atypical chest discomfort a.Exercise stress echo negative for ischemia 11/2020 at low workload 3.Hx breast carcinoma s/p partial mastectomy 4.Hx of tongue cancer, status post radiation, 1999- utilizes a PEG tube for nutrition Allergies Allergy/AdvReac Type Severity Reaction Status Date / Time Penicillins Allergy Mild Verified 09/21/21 13:54 Home Medications Medication Instructions Recorded Confirmed Type acetaminophen 160 mg/5 mL oral 640 mg PO QID PRN Pain 09/21/21 07/18/23 History liquid (Children's Acetaminophen) nutritional supplement-fiber oral 2 ea feeding tube TID 09/21/21 07/18/23 History liquid levothyroxine 100 mcg tablet 100 mcg feeding tube DAILY 07/18/23 07/18/23 History Patient History Medical History Protein calorie malnutrition Oropharyngeal dysphagia Recurrent cellulitis 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 follows with [facility] [facility]" GERD (gastroesophageal reflux disease) Osteoporosis Hypothyroidism Dyslipidemia Sarcoidosis "s/p lung biopsy" Breast cancer "s/p lumpectomy and node dissection in 2004, radiation completed 2005, chemo [id number]" Tongue cancer "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" Surgical History S/P percutaneous endoscopic gastrostomy (PEG) tube placement H/O exploratory thoracotomy H/O partial mastectomy H/O endoscopy "with stricture, s/p dilation" Family History Mother Colon cancer Social History Smoking Status: Never smoker Hx Alcohol Use: No Hx Substance Use: No Preferred Language: Gibraltarian Communication Ability: Effective Computer Builder Required: No Beliefs That Will Affect Care: None marital status: Current Living Situation: Spouse Other Information That Helps Us Care for You: No Feels Safe at Home: Yes Safety Concerns: Feels Safe At This Time Assistive Devices: None Review of Systems Review of Systems: All systems reviewed & are unremarkable except as noted in HPI & below Physical Exam Constitutional: + ill appearing and + cachectic; no acut e distress Respiratory: normal respiratory effort and + cough Auscultation: + rales and + rhonchi; no wheezes Cardiovascular: Rate/Rhythm: + tachycardic and + irregularly irregular Heart Sounds: normal S1, normal S2 and + murmur (+1/6 systolic murmur) Ves sels: no JVD Extremities: no edema Skin: no rashes, warm and dry Psychiatric: Orientation: alert and oriented x 3 Results & Data Vital Signs (Past 12 Hours) Vital Signs Temp Pulse Pulse Resp BP BP Pulse Ox 07/20/23 07:41 37.0 C 77 18 134/85 93 07/20/23 07:12 105 H 15 94 07/20/23 04:12 92 H 07/20/23 03:11 36.6 C 122 H 18 147/91 H 93 07/20/23 00:17 115 H 107/74 07/20/23 00:02 124 H 127/71 07/19/23 22:58 36.8 C 125 H 16 127/71 98 07/19/23 21:51 126 H 133/84 07/19/23 19:51 128 H 98/62 L O2 Del Method O2 Flow Rate 07/20/23 07:41 Nasal Cannula 3 07/20/23 07:12 Nasal Cannula 3 07/20/23 04:12 07/20/23 03:11 Nasal Cannula 2.5 07/20/23 00:17 07/20/23 00:02 07/19/23 22:58 Nasal Cannula 2.5 07/19/23 21:51 07/19/23 19:51 Laboratory Results CBC 07/19/23 07/20/23 Range/Units 20:57 06:27 WBC 10.46 10.23 (4.8-10.8) K/ul RBC 3.90 L 3.87 L (4.20-5.40) M/uL Hgb 11.8 L 11.7 L (12.0-16.0) g/dl Hct 35.7 L 35.6 L (37.0-47.0) % Plt Count 104 L 107 L (130-400) K/uL Neut # (Auto) 9.54 H (1.40-6.50) K/uL Lymph # (Auto) 0.45 L (1.20-3.40) K/uL [place] # (Auto) 0.23 (0.11-0.59) K/uL Eos # (Auto) 0.00 (0.00-0.50) K/uL Baso # (Auto) 0.03 (0.00-0.20) K/uL Comprehensive Metabolic Panel 07/20/23 Range/Units 06:27 Sodium 142 (136-145) mmol/L Potassium 3.8 (3.5-5.1) mmol/L Chloride 111 H (98-107) mmol/L Carbon Dioxide 27 (21-32) mmol/L BUN 20 (6-23) mg/dl Creatinine 0.48 L (0.6-1.2) mg/dl Glucose 154 H (70-99(Fasting)) mg/dl Calcium 8.4 L (8.6-10.3) mg/dl Intake and Output 07/19/23 07/20/23 07/20/23 22:59 06:59 14:59 Intake Total 290 / 1380 630 / 1380 Balance 290 / 1179 630 / 1179 Intake: IV 100 / 300 100 / 300 metroNIDAZOLE 500 mg In 100 ml 100 / 300 100 / 300 @ 100 mls/hr IV Q8H NERY Rx#: [id number] Tube Feeding 90 / 380 270 / 380 Tube Irrigant 100 / 460 260 / 460 Other: Other Intake Source NPO NPO # Unmeasured Voids 1 1 # Urine Diapers 1 Weight 52 kg Weight Measurement Method Built in [facility] Diagnostic Findings Outpatient echo 12/2022 Interpretation Summary The qualitative LV ejection fraction is 60-64% (normal). The aortic valve has three leaflets. Trivial aortic regurgitation. Mild mitral regurgitation is present. Mild tricuspid regurgitation is present. There is no evidence of pulmonary hypertension. Compared to prior study of 12/08/2020, there is no significant change. (1) Atrial flutter Atrial flutter type: unspecified Qualified Code(s): I48.92 - Unspecified atrial flutter
[2023-07-20] MEDS ORDERED: POTASSIUM PHOS 3 MMOL/1 ML INFUSION IV STA (08:05)
[2023-07-20] MEDS: POTASSIUM PHOSPHATE 21 MMOL in SODIUM CHLORIDE 0.9% 500 ML IV ONE (09:00)
[2023-07-20] MEDS: METOPROLOL TARTRATE 25 MG TAB PO SCH ×2 (09:00→12:43)
[2023-07-20] MEDS: POT PHOSPHATE MONOBASIC W/ SOD TAB PO SCH (09:18)
--- NOTE | 2023-07-20 12:04 | Electrocardiogram Report ---
Test Reason : Blood Pressure : / mmHG Vent. Rate : 140 BPM Atrial Rate : 159 BPM P-R Int : 000 ms QRS Dur : 100 ms QT Int : 338 ms P-R-T Axes : 000 -57 089 degrees QTc Int : 516 ms Atrial fibrillation with rapid ventricular response Left anterior fascicular block possible Inferior infarct (cited on or before 18-JUL-2023) Possible Anterior infarct , age undetermined ST segement depressions concerning for ischemia Abnormal ECG When compared with ECG of 18-JUL-2023 16:07, Significant changes have occurred Confirmed by Topher Leblanc ([id number]) on 07/20/2023 12:04:29 PM Referred By: REFERRED SELF Confirmed By:Dimitry Leblanc
--- NOTE | 2023-07-20 12:12 | Electrocardiogram Report ---
Test Reason : Blood Pressure : / mmHG Vent. Rate : 142 BPM Atrial Rate : 119 BPM P-R Int : 000 ms QRS Dur : 094 ms QT Int : 316 ms P-R-T Axes : 000 -56 071 degrees QTc Int : 486 ms Poor data quality, interpretation may be adversely affected Atrial fibrillation with rapid ventricular response Left anterior fascicular block Inferior infarct (cited on or before 18-JUL-2023) Possible Anterior infarct (cited on or before 18-JUL-2023) Abnormal ECG When compared with ECG of 19-JUL-2023 18:55, (unconfirmed) No significant change was found Confirmed by Topher Leblanc ([id number]) on 07/20/2023 12:12:40 PM Referred By: REFERRED SELF Confirmed By:Dimitry Leblanc
--- NOTE | 2023-07-20 12:16 | Electrocardiogram Report ---
Test Reason : Blood Pressure : / mmHG Vent. Rate : 088 BPM Atrial Rate : 000 BPM P-R Int : 000 ms QRS Dur : 064 ms QT Int : 458 ms P-R-T Axes : 000 -37 019 degrees QTc Int : 554 ms Poor data quality, interpretation may be adversely affected Atrial fibrillation with premature ventricular or aberrantly conducted complexes Left axis deviation Prolonged QT Abnormal ECG When compared with ECG of 21-SEP-2021 10:44, Atrial fibrillation has replaced Sinus rhythm QT has lengthened Confirmed by Topher Leblanc ([id number]) on 07/20/2023 12:16:36 PM Referred By: REFERRED SELF Confirmed By:Dimitry Leblanc
[2023-07-20] MEDS: POLYETHYLENE (MIRALAX) 17 GM PACK PO PRN (12:52)
--- NOTE | 2023-07-20 14:29 | Hospitalist Progress Note ---
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 She is being managed for the following: Severe sepsis POA Acute hypoxic respiratory failure Aspiration pneumonia Acute mastitis of left breast Lactic acidosis Metabolic encephalopathy Respiratory acidosis Blood cultures are pending - [id number], urine negative for infection Admitted Chest CT noted multifocal airspace opacities compatible with pneumonia Got IVF bolus for sepsis in ER Continue broad-spectrum IV antibiotics with cefepime 07/17 and Flagyl 07/17 Pulmonary toilet with hypertonic saline, flutter valve, incentive spirometry Lactic acid was 6.3 on presentation, trended down to 1.2 Follow up infectious workup Wean oxygen as tolerated. No home O2 use. L breast mastitis Hx of L breast Ca Continue IV antibiotics as above Had an episode in March as well Needs outpatient mammogram New Onset AFlutter/fib with RVR: note 07/18 evening, in setting of sepsis. TSH wnl. Cardio on board, on metoprolol and hep drip. Plan for eliquis on dc if hb remains stable. Elevated troponin Patient without chest pain Trop flat Likely demand ischemia Last echocardiogram 12/2022 revealed a preserved EF with mild MR/TR Hx of SCC of tongue S/p PEG tube NPO Nutrition on board Continue tube feeding regimen Hypothyroidism Chronic, stable Continue levothyroxine Constipation CT a/p reveals Large amount well-formed stool seen within the distal sigmoid colon/rectum. Continue bowel regimen, add lactulose x 1 dose. DVT prophylaxis: Heparin DNR/DNI Dispo: PCU Admission and Anticipated Discharge Date Admission Date: July 18, 2023 Subjective Patient seen and examined at bedside. Patient reports sinus drainage, weakness, some funny sensation in the chest. Last evening patient had an event of A-fib with RVR. Cardiology was consulted. Patient denies any cough or shortness of breath or chest pain. at bedside. Of note below, patient has dysarthria at baseline from history of cancer status post radiation treatment. Physical Exam Physical Exam: GENERAL APPEARANCE: Awake and alert, ill and frail appearing woman HEENT: NC, AT. moist mucous membranes. EOMI, restricted movement of mandible NECK: Supple without lymphadenopathy. No stiffness or restricted ROM. HEART: irregular rate, in 100s - 120s LUNGS: occ rhonchi on exam ABDOMEN: Soft, nontender, nondistended, peg tube in situ. BACK: No CVAT, no obvious deformity. EXTREMITIES: Without cyanosis, clubbing or edema. NEUROLOGICAL: Grossly nonfocal. Alert and oriented, moving all 4 extremities. CN not formally tested but appear grossly intact. Skin: Warm and dry without any rash. Results & Data Results & Data Vital Signs (Past 12 Hours) Vital Signs Temp Pulse Pulse Resp BP Pulse Ox O2 Del Method 07/20/23 11:11 36.8 C 104 H 18 154/80 H 93 Nasal Cannula 07/20/23 08:00 105 H 07/20/23 08:00 Nasal Cannula 07/20/23 07:41 37.0 C 77 18 134/85 93 Nasal Cannula 07/20/23 07:12 105 H 15 94 Nasal Cannula 07/20/23 04:12 92 H 07/20/23 03:11 36.6 C 122 H 18 147/91 H 93 Nasal Cannula O2 Flow Rate 07/20/23 11:11 3 07/20/23 08:00 07/20/23 08:00 3 07/20/23 07:41 3 07/20/23 07:12 3 07/20/23 04:12 07/20/23 03:11 2.5 (3) Aspiration pneumonia Aspiration pneumonia type: unspecified Laterality: bilateral Lung location: lower lobe of lung Qualified Code(s): J69.0 - Pneumonitis due to inhalation of food and vomit
[2023-07-20 14:55] LABS: INR 1.2 (0.9-1.1); Partial Thromboplastin Ratio 1.1; Partial Thromboplastin Time 30 Seconds (21-31); Prothrombin Time 13.4 Seconds (9.0-12.0)
[2023-07-20] MEDS: HEPARIN SODIUM/DEXTROSE 25,000 UNITS/500 ML BAG IV SCH (15:09)
[2023-07-20] MEDS: ONDANSETRON INJ 2 MG/ML 2 ML VIAL IV PRN (15:27)
[2023-07-20] MEDS: LACTULOSE SYRUP 20 GM/30 ML UDC PEG ONE (15:40)
[2023-07-20] MEDS: Heparin IV Adult Wt-Based Low-Dose *NO* INITIAL Bolus Protocol IV SCH (20:47)
[2023-07-20] MEDS: HEPARIN IV BOLUS 2,000 UNITS in SYRINGE 0 ML IV ONE (22:56)
[2023-07-21 05:38] LABS: Hematocrit (blood only) 31.8 % (37.0-47.0); Hemoglobin 10.8 g/dl (12.0-16.0); Mean Corpuscular Hemoglobin 30.4 pg (25.0-34.0); Mean Corpuscular Volume 89.6 fL (80.0-100.0); Mean Platelet Volume 12.7 fL (9.4-12.4); Platelet Count 106 K/uL (130-400); RDW Coefficient of Variation 14.4 % (11.5-14.5); RDW Standard Deviation 47.4 fL (36.4-46.3); Red Blood Count 3.55 M/uL (4.20-5.40); White Blood Count 8.43 K/ul (4.8-10.8)
[2023-07-21 05:53] LABS: BUN Creatinine Ratio 47.7 (10-20); Calcium 7.9 mg/dl (8.6-10.3); Est GFR (African American) 111.3 ml/min; Magnesium 1.9 mg/dl (1.7-2.4); Phosphorus 1.7 mg/dl (2.5-4.9); Potassium 3.1 mmol/L (3.5-5.1)
[2023-07-21 06:15] LABS: ANTI-Xa, UFH(UnfractionatedHep 0.13 IU/ml (0.3-0.7)
[2023-07-21] MEDS: HEPARIN SOD (PORCINE) 1000 UNIT/ML IV ONE (07:18)
[2023-07-21] MEDS ORDERED: POTASSIUM PHOS 3 MMOL/1 ML INFUSION IV STA (07:55)
[2023-07-21] MEDS: POTASSIUM CHLORIDE 20 MEQ/15 ML UDC PEG SCH (09:29)
--- NOTE | 2023-07-21 09:50 | Cardiology Progress Note ---
<Statement entered by Ina Aguilar MD - 07/21/23 10:33> I have reviewed the advanced practitioner's documentation on the date of service referenced in note, and I agree with, and take responsibility for the plan of care. I spent a total of [10] minutes coordinating, documenting, and providing care for this patient excluding time spent in the performance of separately billed services or time spent by another provider. 78 yr old with paroxysmal afib, pneumonia , has converted to sinus overnight on heparin drip to be transitioned to PO anticoagulation Date of Service July 21, 2023 Assessment & Plan (1) Atrial flutter: (2) Elevated troponin: Plan 78-year-old female admitted with altered mental status and weakness -> sepsis secondary to pneumonia, patient lapsing into atrial fibrillation with rapid ventricular response. Initially treated with IV Lopressor and IV digoxin then oral Lopressor 25 mg every 6 hours (received two doses on 07/20/2023 and one dose this AM) Rhythm spontaneously converted to sinus rhythm at 0341, without conversion pause Anticoagulation initially deferred due to anemia, thrombocytopenia, and oral wounds -> now on IV heparin Elevated troponin felt to be demand ischemia Recommendations: 1. EKG this AM 2. Supplement potassium, maintain electrolytes 3. Continue beta-ayde therapy - Lopressor 25 mg BID for now (Has Peg tube, sprinkles not available) 4. Heparin to Eliquis as tolerated (risk and benefits discussed) ? reduced dose Eliquis (age 78, weight 51.6, creatinine 0.44 mg/dL) I spent a total of 33 minutes on the date of service in preparation, delivery, and documentation of the care provided to this patient excluding any time spent in the performance of separately billed services. This visit was a split-shared visit with the substantive portion of the medical decision making performed by the supervising mixing house operator/billing provider. Admission and Anticipated Discharge Date Admission Date: July 18, 2023 Subjective Patient seen and examined. Chart, medications, and telemetry reviewed. Complaints: Nausea. No vomiting. No chest pain, palpitations, or difficulty breathing. Telemetry: Atrial fibrillation/flutter with spontaneous conversion to since rhythm without conversion pause at 03:41 on 07/21/2023. Review of Systems Review of Systems: Complete Review of Systems is as stated above, negative, or noncontributory Physical Exam Physical Exam: General: A&Ox3. NAD. HENT: Normocephalic. Atraumatic. Eyes: PER. Conjunctiva pink, sclera clear. Neck: No JVD. Heart: RRR. Grade I-II systolic murmur. Lungs: Clear to auscultation. Abdomen: + Peg tube. +BS. Soft. Extremities: No clubbing, cyanosis, or edema. Limited neurological examination is without focal deficits. Pulses: Posterior tibial=2/4. Results & Data Vital Signs (Past 12 Hours) Vital Signs Temp Pulse Resp BP Pulse Ox O2 Del Method O2 Flow Rate 07/21/23 07:50 36.1 C L 64 18 169/47 H 93 Nasal Cannula 3 07/21/23 03:55 36.7 C 64 18 172/80 H 94 Nasal Cannula 3.0 07/20/23 23:04 36.6 C 63 16 122/64 93 Nasal Cannula 3.0 Laboratory Results Coagulation 07/20/23 Range/Units 14:07 PT 13.4 H (9.0-12.0) Seconds APTT 30 (21-31) Seconds CBC 07/21/23 Range/Units 05:16 WBC 8.43 (4.8-10.8) K/ul RBC 3.55 L (4.20-5.40) M/uL Hgb 10.8 L (12.0-16.0) g/dl Hct 31.8 L (37.0-47.0) % Plt Count 106 L (130-400) K/uL Comprehensive Metabolic Panel 07/21/23 Range/Units 05:16 Sodium 145 (136-145) mmol/L Potassium 3.1 L (3.5-5.1) mmol/L Chloride 113 H (98-107) mmol/L Carbon Dioxide 27 (21-32) mmol/L BUN 21 (6-23) mg/dl Creatinine 0.44 L (0.6-1.2) mg/dl Glucose 143 H (70-99(Fasting)) mg/dl Calcium 7.9 L (8.6-10.3) mg/dl Intake and Output 07/20/23 07/21/23 07/21/23 22:59 06:59 14:59 Intake Total 290.2 1992.200 208.000 / 1992.200 Output Total Balance 289.2 / 1989.200 207.000 / 1989.200 Intake: IV 290.2 / 1992.200 208.000 / 1992.200 Heparin Sodium/Dextrose 25,000 90.2 / 199.867 109.667 / 199.867 units In 500 ml @ 700 UNITS/HR 14 mls/hr IV .Q24H NERY Rx#: [id number] metroNIDAZOLE 500 mg In 100 ml 200 / 298.333 98.333 / 298.333 @ 100 mls/hr IV Q8H NERY Rx#: [id number] Output: # Bowel Movements Other: Other Intake Source NPO NPO # Unmeasured Voids 1 Weight 51.6 kg Weight Measurement Method Built in [facility] (1) Atrial flutter Atrial flutter type: unspecified Qualified Code(s): I48.92 - Unspecified atrial flutter
[2023-07-21] MEDS: POTASSIUM PHOSPHATE 21 MMOL in SODIUM CHLORIDE 0.9% 500 ML IV ONE (10:40)
[2023-07-21] MEDS: CEFEPIME 2,000 MG in SYRINGE 0 ML IV SCH (11:33)
[2023-07-21] MEDS: PROMETHAZINE HCL 12.5 MG in SODIUM CHLORIDE 0.9% 50 ML IV PRN (12:55)
--- NOTE | 2023-07-21 13:28 | Electrocardiogram Report ---
Test Reason : Blood Pressure : / mmHG Vent. Rate : 071 BPM Atrial Rate : 071 BPM P-R Int : 222 ms QRS Dur : 088 ms QT Int : 408 ms P-R-T Axes : 061 -29 036 degrees QTc Int : 443 ms Sinus rhythm with marked sinus arrhythmia with 1st degree A-V block Abnormal ECG When compared with ECG of 20-JUL-2023 08:07, Sinus rhythm has replaced Atrial fibrillation Vent. rate has decreased BY 71 BPM Borderline criteria for Anterior infarct are no longer Present Borderline Criteria for Inferior infarct no longer present Confirmed by Foster Vela ([id number]) on 07/21/2023 1:28:32 PM Referred By: REFERRED SELF Confirmed By:Foster Vela
[2023-07-21 13:29] LABS: ANTI-Xa, UFH(UnfractionatedHep 0.24 IU/ml (0.3-0.7)
--- NOTE | 2023-07-21 14:32 | Hospitalist Progress Note ---
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 She is being managed for the following: Severe sepsis POA Acute hypoxic respiratory failure Aspiration pneumonia Acute mastitis of left breast Lactic acidosis Metabolic encephalopathy Respiratory acidosis Blood cultures are pending - NG48hr, urine negative for infection Admitted Chest CT noted multifocal airspace opacities compatible with pneumonia Got IVF bolus for sepsis in ER Continue broad-spectrum IV antibiotics with cefepime 07/17 and Flagyl 07/17 Pulmonary toilet with hypertonic saline, flutter valve, incentive spirometry Lactic acid was 6.3 on presentation, trended down to 1.2 Follow up infectious workup Wean oxygen as tolerated. No home O2 use. L breast mastitis Hx of L breast Ca Continue IV antibiotics as above Had an episode in March as well Needs outpatient mammogram New Onset AFlutter/fib with RVR: note 07/18 evening, in setting of sepsis. TSH wnl. Cardio on board, on metoprolol and hep drip. Plan for eliquis on dc if hb remains stable. continue to follow Hb. Elevated troponin Patient without chest pain Trop flat Likely demand ischemia Last echocardiogram 12/2022 revealed a preserved EF with mild MR/TR Hx of SCC of tongue S/p PEG tube NPO Nutrition on board Continue tube feeding regimen Hypothyroidism Chronic, stable Continue levothyroxine Constipation CT a/p reveals Large amount well-formed stool seen within the distal sigmoid colon/rectum. Continue bowel regimen, moved BM 07/19 per pt. DVT prophylaxis: Heparin drip DNR/DNI Dispo: PCU Admission and Anticipated Discharge Date Admission Date: July 18, 2023 Subjective Patient seen and examined at bedside. Patient reports sinus drainage, weakness, nausea. Denies chest pain or funny sensation in chest. Patient denies any cough or shortness of breath. Of note below, patient has dysarthria at baseline from history of cancer status post radiation treatment. Physical Exam Physical Exam: GENERAL APPEARANCE: Awake and alert, ill and frail appearing woman HEENT: NC, AT. moist mucous membranes. EOMI, restricted movement of mandible NECK: Supple without lymphadenopathy. No stiffness or restricted ROM. HEART: regular rate, in 100s - 120s LUNGS: crackles and rhonchi improving ABDOMEN: Soft, nontender, nondistended, peg tube in situ. BACK: No CVAT, no obvious deformity. EXTREMITIES: Without cyanosis, clubbing or edema. NEUROLOGICAL: Grossly nonfocal. Alert and oriented, moving all 4 extremities. CN not formally tested but appear grossly intact. Skin: Warm and dry without any rash. Results & Data Results & Data Vital Signs (Past 12 Hours) Vital Signs Temp Pulse Pulse Resp BP Pulse Ox O2 Del Method 07/21/23 11:21 36.7 C 72 16 177/79 H 93 Nasal Cannula 07/21/23 08:00 61 07/21/23 08:00 Nasal Cannula 07/21/23 07:50 36.1 C L 64 18 169/47 H 93 Nasal Cannula 07/21/23 03:55 36.7 C 64 18 172/80 H 94 Nasal Cannula O2 Flow Rate 07/21/23 11:21 3 07/21/23 08:00 07/21/23 08:00 2 07/21/23 07:50 3 07/21/23 03:55 3.0 (3) Aspiration pneumonia Aspiration pneumonia type: unspecified Laterality: bilateral Lung location: lower lobe of lung Qualified Code(s): J69.0 - Pneumonitis due to inhalation of food and vomit
[2023-07-21] MEDS: POTASSIUM CHLORIDE / WTR 10 MEQ/100 ML PLCT IV SCH (17:19)
[2023-07-21] MEDS: MAGNESIUM SULFATE / D5W 1 GM/100 ML BAG IV SCH (17:19)
[2023-07-21] MEDS: METOPROLOL TARTRATE 25 MG TAB PO SCH (19:52)
--- NOTE | 2023-07-22 01:01 | Communication Note ---
Date of Service: July 22, 2023 Made aware by RN of uncontrolled blood pressure. SBP 170-180s the last 12 hours. Heart rate 60s to 70s Patient asymptomatic as per RN. AP Hypertensive urgency Coreg in place of Lopressor
[2023-07-22] MEDS: carvediloL 3.125 MG TAB PEG ONE (01:23)
[2023-07-22 03:16] LABS: Hematocrit (blood only) 36.3 % (37.0-47.0); Hemoglobin 12.2 g/dl (12.0-16.0); Mean Corpuscular Hemoglobin 30.6 pg (25.0-34.0); Mean Corpuscular Hgb Conc 33.6 g/dL (32.0-36.0); Mean Platelet Volume 12.2 fL (9.4-12.4); Platelet Count 129 K/uL (130-400); RDW Coefficient of Variation 14.3 % (11.5-14.5); RDW Standard Deviation 47.8 fL (36.4-46.3); Red Blood Count 3.99 M/uL (4.20-5.40)
[2023-07-22 03:30] LABS: BUN Creatinine Ratio 38.1 (10-20); Calcium 7.9 mg/dl (8.6-10.3); Creatinine Clr Calc Pharmacy 85.9 ml/min; Est GFR (Non-African American) 97.5 ml/min; Magnesium 2.1 mg/dl (1.7-2.4); Phosphorus 2.1 mg/dl (2.5-4.9); Potassium 3.4 mmol/L (3.5-5.1)
[2023-07-22 03:45] LABS: ANTI-Xa, UFH(UnfractionatedHep 0.21 IU/ml (0.3-0.7)
[2023-07-22] MEDS: hydrALAZINE HCL 20 MG/ML VIAL IV ONE (06:05)
[2023-07-22] MEDS: carvediloL 3.125 MG TAB PEG SCH (08:01)
[2023-07-22] MEDS ORDERED: POTASSIUM PHOS 3 MMOL/1 ML INFUSION IV STA (08:10)
[2023-07-22] MEDS: POTASSIUM CHLORIDE 20 MEQ/15 ML UDC PO SCH (09:46)
[2023-07-22] MEDS: POTASSIUM PHOSPHATE 21 MMOL in SODIUM CHLORIDE 0.9% 500 ML IV ONE (11:06)
[2023-07-22 11:12] LABS: ANTI-Xa, UFH(UnfractionatedHep 0.23 IU/ml (0.3-0.7)
[2023-07-22] MEDS: SODIUM CHLOR 7% 4 ML NEB NEB PRN (13:00)
--- NOTE | 2023-07-22 13:16 | Hospitalist Progress Note ---
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 She is being managed for the following: Severe sepsis POA Acute hypoxic respiratory failure Aspiration pneumonia Acute mastitis of left breast Lactic acidosis Metabolic encephalopathy Respiratory acidosis Blood cultures are pending - NG48hr, urine negative for infection Admitted Chest CT noted multifocal airspace opacities compatible with pneumonia Got IVF bolus for sepsis in ER Continue broad-spectrum IV antibiotics with cefepime 07/17 and Flagyl 07/17 Pulmonary toilet with hypertonic saline, flutter valve, incentive spirometry Lactic acid was 6.3 on presentation, trended down to 1.2 Follow up infectious workup Wean oxygen as tolerated. No home O2 use. L breast mastitis Hx of L breast Ca Continue IV antibiotics as above Had an episode in March as well Needs outpatient mammogram Erythema has resolved. New Onset AFlutter/fib with RVR: note 07/18 evening, in setting of sepsis. TSH wnl. Cardio on board, on metoprolol and hep drip. Plan for eliquis on dc if hb remains stable. continue to follow Hb. Coreg in place of metoprolol from 07/21 for incl BP mx. Elevated troponin Patient without chest pain Trop flat Likely demand ischemia Last echocardiogram 12/2022 revealed a preserved EF with mild MR/TR Hx of SCC of tongue S/p PEG tube NPO Nutrition on board Continue tube feeding regimen Hypothyroidism Chronic, stable Continue levothyroxine Constipation CT a/p reveals Large amount well-formed stool seen within the distal sigmoid colon/rectum. Continue bowel regimen, moved BM 07/19 per pt. DVT prophylaxis: Heparin drip, plan for eliquis on dc, will send bianca for cost assessment. DNR/DNI Dispo: PCU. PT/OT, CM to assist with DC pLan. Admission and Anticipated Discharge Date Admission Date: July 18, 2023 Subjective Patient seen and examined at bedside. Patient reports sinus drainage, weakness, nausea. Patient's was at bedside who was also updated on plan of care. Denies chest pain or funny sensation in chest. Patient denies any cough or shortness of breath. Patient reports nausea better controlled but still feels sick at his stomach, PPI added, one-time dose of famotidine given. Overnight patient had elevated blood pressure, her metoprolol has been changed to Coreg for inclusion of blood pressure management. Of note below, patient has dysarthria at baseline from history of cancer status post radiation treatment. Physical Exam Physical Exam: GENERAL APPEARANCE: Awake and alert, ill and frail appearing woman HEENT: NC, AT. moist mucous membranes. EOMI, restricted movement of mandible NECK: Supple without lymphadenopathy. No stiffness or restricted ROM. HEART: regular rate, in 100s - 120s LUNGS: crackles and rhonchi improving ABDOMEN: Soft, nontender, nondistended, peg tube in situ. BACK: No CVAT, no obvious deformity. EXTREMITIES: Without cyanosis, clubbing or edema. NEUROLOGICAL: Grossly nonfocal. Alert and oriented, moving all 4 extremities. CN not formally tested but appear grossly intact. Skin: Warm and dry without any rash. Results & Data Results & Data Vital Signs (Past 12 Hours) Vital Signs Temp Pulse Resp BP Pulse Ox O2 Del Method O2 Flow Rate 07/22/23 13:00 17 95 Nasal Cannula 3 07/22/23 10:50 36.4 C L 70 19 162/73 H 89 L Nasal Cannula 3 07/22/23 08:00 Nasal Cannula 2 07/22/23 07:15 36.4 C L 81 18 138/67 90 Nasal Cannula 3 07/22/23 06:26 82 165/61 H 07/22/23 03:26 36.8 C 80 18 183/85 H 91 Nasal Cannula 3.0 (3) Aspiration pneumonia Aspiration pneumonia type: unspecified Laterality: bilateral Lung location: lower lobe of lung Qualified Code(s): J69.0 - Pneumonitis due to inhalation of food and vomit
--- NOTE | 2023-07-22 13:33 | Cardiology Progress Note ---
Date of Service July 22, 2023 Assessment & Plan (1) Atrial flutter: (2) Elevated troponin: Plan 78-year-old female admitted with altered mental status and weakness -> sepsis secondary to pneumonia, patient lapsing into atrial fibrillation with rapid ventricular response. Initially treated with IV Lopressor and IV digoxin then oral Lopressor 25 mg with spontaneously conversion to sinus rhythm on 07/21/2023 at 0341, without conversion pause Anticoagulation initially deferred due to anemia, thrombocytopenia, and oral wounds -> now on IV heparin Asymptomatic 17 beat run of ventricular tachycardia on July 21, 2023 at 16:00 Hypokalemia corrected with oral supplementation Elevated troponin felt to be demand ischemia Recommendations: 1. Increase carvedilol to 6.25 mg twice per day for additional blood pressure and heart rate control 2. Add Losartan 25 mg/day 3. Maintain normokalemia and normomagnesemia. 4. Heparin -> Eliquis (risk and benefits discussed), ? reduced dose Eliquis (weight 51.6, age 78, creatinine <1.5 mg/dL) Admission and Anticipated Discharge Date Admission Date: July 18, 2023 Supervising Physician Co-Signing Physician Notes I have reviewed the advanced practitioner's documentation on the date of service referenced in note, and I agree with, and take responsibility for the plan of care. I spent a total of [10] minutes coordinating, documenting, and providing care for this patient excluding time spent in the performance of separately billed services or time spent by another provider. Subjective Patient seen and examined. Chart, medications, telemetry reviewed. at bedside. Feels better today. No palpitations. No chest pain. Breathing and congestion seem to be better today, post nebulizer treatment. Telemetry with a 17 beat run of ventricular tachycardia at 16:00 on July 21, 2023, asymptomatic Metoprolol changed to carvedilol by Hospitalist due to hypertension Review of Systems Review of Systems: Complete Review of Systems is as stated above, negative, or noncontributory Physical Exam Physical Exam: General: A&Ox3. NAD. HENT: Normocephalic. Atraumatic. Eyes: PER. Conjunctiva pink, sclera clear. Neck: No JVD. Heart: RRR. Grade I-II systolic murmur. Lungs: Clear to auscultation. Abdomen: + Peg tube. +BS. Soft. Extremities: No clubbing, cyanosis, or edema. Limited neurological examination is without focal deficits. Pulses: Posterior tibial=2/4. Results & Data Vital Signs (Past 12 Hours) Vital Signs Temp Pulse Resp BP Pulse Ox O2 Del Method O2 Flow Rate 07/22/23 13:00 17 95 Nasal Cannula 3 07/22/23 10:50 36.4 C L 70 19 162/73 H 89 L Nasal Cannula 3 07/22/23 08:00 Nasal Cannula 2 07/22/23 07:15 36.4 C L 81 18 138/67 90 Nasal Cannula 3 07/22/23 06:26 82 165/61 H 07/22/23 03:26 36.8 C 80 18 183/85 H 91 Nasal Cannula 3.0 Laboratory Results CBC 07/22/23 Range/Units 02:48 WBC 6.90 (4.8-10.8) K/ul RBC 3.99 L (4.20-5.40) M/uL Hgb 12.2 (12.0-16.0) g/dl Hct 36.3 L (37.0-47.0) % Plt Count 129 L (130-400) K/uL Comprehensive Metabolic Panel 07/22/23 Range/Units 02:48 Sodium 141 (136-145) mmol/L Potassium 3.4 L (3.5-5.1) mmol/L Chloride 107 (98-107) mmol/L Carbon Dioxide 28 (21-32) mmol/L BUN 16 (6-23) mg/dl Creatinine 0.42 L (0.6-1.2) mg/dl Glucose 142 H (70-99(Fasting)) mg/dl Calcium 7.9 L (8.6-10.3) mg/dl Intake and Output 07/21/23 07/22/23 07/22/23 22:59 06:59 14:59 Intake Total 1488.867 / 1796.767 137.4 / 1796.767 243.134 / 243.134 Output Total 1 Balance 1485.867 / 1792.767 136.4 / 1792.767 243.134 / 243.134 Intake: IV 1248.867 / 1556.767 137.4 / 1556.767 243.134 / 243.134 Heparin Sodium/Dextrose 25,000 112.200 / 369.600 137.4 / 369.600 143.134 / 143.134 units In 500 ml @ 1,000 UNITS/ HR 20 mls/hr IV .Q24H [facility] Rx#: [id number] Magnesium Sulfate / D5w 1 gm In 184.167 / 184.167 100 ml @ 50 mls/hr IV Q2H [facility] Rx#:[id number] Potassium Chloride / Wtr 10 meq 195 / 195 In 100 ml @ 100 mls/hr IV Q1H [facility] Rx#:[id number] Potassium Phosphate 21 mmol In 507 / 507 Sodium Chloride 0.9% 500 ml @ 88 mls/hr IV ONE ONE Rx#: [id number] Promethazine HCl 12.5 mg In 50.5 / 101.0 Sodium Chloride 0.9% 50 ml @ 202 mls/hr IV Q6H PRN Rx#: [id number] metroNIDAZOLE 500 mg In 100 ml 200 / 200 100 / 100 @ 100 mls/hr IV Q8H [facility] Rx#: [id number] Tube Feeding 240 / 240 Output: # Bowel Movements 3 / 4 1 / 4 Other: Other Intake Source NPO NPO # Unmeasured Voids 4 1 # Urine Diapers 2 2 Weight 52.4 kg Weight Measurement Method Built in [facility] (1) Atrial flutter Atrial flutter type: unspecified Qualified Code(s): I48.92 - Unspecified atrial flutter
[2023-07-22] MEDS: LANSOPRAZOLE 30 MG SOLTAB PEG SCH (14:43)
[2023-07-22] MEDS: LOSARTAN POTASSIUM 25 MG TAB PO SCH (14:43)
[2023-07-22] MEDS: FAMOTIDINE 40 MG TABLET GT ONE (14:43)
[2023-07-22] MEDS: carvediloL 6.25 MG TAB PEG SCH (17:56)
[2023-07-22] MEDS ORDERED: carvediloL 3.125 MG TAB PEG SCH (20:00)
[2023-07-22 20:02] LABS: ANTI-Xa, UFH(UnfractionatedHep 0.31 IU/ml (0.3-0.7)
[2023-07-23] MEDS: POTASSIUM CHLORIDE 20 MEQ/15 ML UDC PEG STA (04:28)
[2023-07-23] MEDS: FUROSEMIDE INJ 20 MG/2 ML VIAL IV ONE ×2 (04:28→17:46)
[2023-07-23 06:17] LABS: Hematocrit (blood only) 38.9 % (37.0-47.0); Hemoglobin 12.9 g/dl (12.0-16.0); Mean Corpuscular Hemoglobin 30.1 pg (25.0-34.0); Mean Corpuscular Hgb Conc 33.2 g/dL (32.0-36.0); Mean Corpuscular Volume 90.9 fL (80.0-100.0); Mean Platelet Volume 12.5 fL (9.4-12.4); Platelet Count 149 K/uL (130-400); RDW Coefficient of Variation 14.5 % (11.5-14.5); RDW Standard Deviation 47.8 fL (36.4-46.3); Red Blood Count 4.28 M/uL (4.20-5.40); White Blood Count 5.88 K/ul (4.8-10.8)
--- NOTE | 2023-07-23 06:36 | XRay Report ---
XR chest 1V portable CLINICAL HISTORY: low o2 COMPARISON STUDY: Chest radiograph and chest CT July 18, 2023. FINDINGS: There is no pneumothorax. Small left and trace right pleural effusions are present. Cardiom ediastinal silhouette is stable. Interstitial thickening and bilateral opacities have progressed. IMPRESSION: 1. Increase in bilateral airspace opacities suggestive of multifocal pneumonia. Interstitial thickeni ng suggestive of superimposed pulmonary edema. 2. Small left and trace right pleural effusions. ACT 112: Negative or not required by law. Electronically signed by: Eloy Green M.D. 07/23/2023 6:33 AM
[2023-07-23 06:37] LABS: BUN Creatinine Ratio 35.4 (10-20); Calcium 8.4 mg/dl (8.6-10.3); Creatinine Clr Calc Pharmacy 75.2 ml/min; Est GFR (African American) 108.1 ml/min; Est GFR (Non-African American) 93.3 ml/min; Magnesium 1.9 mg/dl (1.7-2.4); Phosphorus 2.1 mg/dl (2.5-4.9); Potassium 4.5 mmol/L (3.5-5.1)
[2023-07-23 06:42] LABS: ANTI-Xa, UFH(UnfractionatedHep 0.42 IU/ml (0.3-0.7)
[2023-07-23] MEDS ORDERED: SODIUM PHOSPHATE 3 MMOL/1 ML INFUSION IV STA (08:21)
--- NOTE | 2023-07-23 08:56 | Pulmonary Consultation ---
Date of Consultation July 23, 2023 Assessment & Plan (1) Acute hypoxic respiratory failure: (2) Multifocal pneumonia: (3) Tongue cancer: (4) Sarcoidosis: Plan CTA chest 07/18/2023 personally reviewed: Bilateral apical pleural scarring Patchy opacities appreciated bilaterally in the lower lobes especially in the left lower lobe, inferior lobe of the lingula also affected Minimal station 7 lymphadenopathy -- Acute hypoxic respiratory failure Secondary to Multilobar Pneumonia Aspiration cannot be ruled out Respiratory bio fire negative for everything on 07/18/2023 Procalcitonin 2.19, nasal MRSA negative BNP 427 -- Sarcoidosis Bilateral apical pleural scarring with some reticular opacities in the upper lobes which are chronic and present since CT chest 12/2013 Patient was never treated for it. Plan: Continue with antibiotics, incentive spirometry will beneficial Continue with flutter valve. With elevated BNP would recommend diuresis to keep the patient negative balance Case was discussed with primary team Please note the above document was generated using voice recognition software. It may contain grammatical, syntax or spelling errors.Any formal questions or concerns about the content, text or information contained within the body of this dictation should be directly addressed to the provider for clarification. 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 Patient was saturating 86-87% on 8 L of oxygen mask. She was not in any respiratory distress. Heart rate was in the mid to high 70s. Does complain of cough but is not bringing up anything. Denies any significant chest congestion. No headache. No dysuria, no diarrhea No fever or chills Social history: socially smoked as teen Allergies Allergy/AdvReac Type Severity Reaction Status Date / Time Penicillins Allergy Mild Verified 09/21/21 13:54 Home Medications Medication Instructions Recorded Confirmed Type acetaminophen 160 mg/5 mL oral 640 mg PO QID PRN Pain 09/21/21 07/18/23 History liquid (Children's Acetaminophen) nutritional supplement-fiber oral 2 ea feeding tube TID 09/21/21 07/18/23 History liquid levothyroxine 100 mcg tablet 100 mcg feeding tube DAILY 07/18/23 07/18/23 History apixaban 2.5 mg tablet (Eliquis) 2.5 mg PO BID #60 tabs 07/23/23 Rx Patient History Medical History Protein calorie malnutrition Oropharyngeal dysphagia Recurrent cellulitis 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 follows with [facility]" GERD (gastroesophageal reflux disease) Osteoporosis Hypothyroidism Dyslipidemia Sarcoidosis "s/p lung biopsy" Breast cancer "s/p lumpectomy and node dissection in 2004, radiation completed 2005, chemo [id number]" Tongue cancer "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" Surgical History S/P percutaneous endoscopic gastrostomy (PEG) tube placement H/O exploratory thoracotomy H/O partial mastectomy H/O endoscopy "with stricture, s/p dilation" Family History Mother Colon cancer Social History Smoking Status: Never smoker Hx Alcohol Use: No Hx Substance Use: No Preferred Language: Croatian Communication Ability: Effective Second Shift Supervisor Required: No Beliefs That Will Affect Care: None marital status: Current Living Situation: Spouse Other Information That Helps Us Care for You: No Feels Safe at Home: Yes Safety Concerns: Feels Safe At This Time Assistive Devices: None Review of Systems 2 Review of Systems: All systems reviewed & are unremarkable except as noted in HPI & below Physical Exam 2 Physical Exam: Constitutional: No acute distress HEENT: EOMI, PERRLA, neck scar appreciated Respiratory system: Decreased air entry bilaterally, no wheeze, no rhonchi, positive crackles bilaterally CVS: S1-S2 positive, no murmurs or gallops Abdomen: Soft, nontender, nondistended, positive bowel sounds x4, positive PEG Extremities: +2 pulses bilaterally radialis/ dorsalis pedis, no cyanosis, no edema Neuro: Awake alert oriented x3 Psych: Normal mood and affect G/U: No [place] Skin: no rashes, warm and dry Lymphatic: no cervical or axillary lymphadenopathy Results & Data Results & Data Vital Signs (Past 12 Hours) Vital Signs Temp Pulse Pulse Resp BP Pulse Ox O2 Del Method 07/23/23 07:08 36.8 C 69 19 157/75 H 92 Oxymask 07/23/23 03:50 91 Oxymask 07/23/23 03:45 88 L Nasal Cannula 07/23/23 02:43 36.8 C 73 19 121/66 91 Nasal Cannula 07/22/23 23:07 36.9 C 65 18 121/63 92 Nasal Cannula 07/22/23 22:03 62 O2 Flow Rate 07/23/23 07:08 5 07/23/23 03:50 6 07/23/23 03:45 4 07/23/23 02:43 4 07/22/23 23:07 4 07/22/23 22:03 Laboratory Results 07/23/23 06:01 07/23/23 06:01 PG Care Time/CCT Total # of Minutes Spent Total Time Spent with Patient: Total time spent is greater than 50% in coordination of care (as documented) at patient's floor/unit and/or counseling patient: Coding Level of Care Code 00711 INT INP/OBS CARE 375MIN Diagnoses Acute hypoxic respiratory failure J96.01 Multifocal pneumonia J18.9 Tongue cancer C02.9 Sarcoidosis D86.9
[2023-07-23] MEDS: SODIUM PHOSPHATE 15 MMOL in DEXTROSE 5% 250 ML IV ONE (09:36)
--- NOTE | 2023-07-23 15:45 | Hospitalist Progress Note ---
Date of Service July 23, 2023 Assessment & Plan (1) Severe sepsis: (2) Acute hypoxic respiratory failure: (3) Aspiration pneumonia: (4) Acute mastitis of left breast: (5) Lactic acidosis: (6) Elevated troponin: (7) Metabolic encephalopathy: (8) Respiratory acidosis: Plan 78 yr old F who has significant past medical history of left breast CA status post partial mastectomy in 2004, 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 She is being managed for the following: Severe sepsis POA Acute hypoxic respiratory failure Aspiration pneumonia Acute mastitis of left breast Lactic acidosis Metabolic encephalopathy Respiratory acidosis Blood cultures are pending - NG48hr, urine negative for infection Admitted Chest CT noted multifocal airspace opacities compatible with pneumonia Got IVF bolus for sepsis in ER Continue broad-spectrum IV antibiotics with cefepime 07/17 and Flagyl 07/17 Pulmonary toilet with hypertonic saline, flutter valve, incentive spirometry Lactic acid was 6.3 on presentation, trended down to 1.2 Follow up infectious workup - no Cx growth so far Needed increased O2 overnight, CXR w/ worsening pna, Pulm consult. CXR w/ fluid congestion as well, decrease FWF via TF. follow clinicaly, lasix prn. L breast mastitis Hx of L breast Ca Continue IV antibiotics as above Had an episode in March as well Needs outpatient mammogram Erythema has resolved. New Onset AFlutter/fib with RVR: noted 07/18 evening, in setting of sepsis. TSH wnl. Currently sinus rhythm. Cardiology evaluated. Started on metoprolol then changed to Coreg for hypertension management as well. Heart rate under control. Was started on heparin drip, plan to transition to Eliquis 2.5 mg twice daily from 07/22 evening. Patient and her agreeable to the cost of Eliquis [$15 a month per CM]. DC hep drip at 9 pm today. Elevated troponin Patient without chest pain Trop flat Likely demand ischemia Last echocardiogram 12/2022 revealed a preserved EF with mild MR/TR Hx of SCC of tongue S/p PEG tube NPO Nutrition on board Continue tube feeding regimen Possible APD: c/w PPI daily. Hypothyroidism Chronic, stable Continue levothyroxine Constipation CT a/p reveals Large amount well-formed stool seen within the distal sigmoid colon/rectum. Continue bowel regimen, moving BM ok currently per pt. DVT prophylaxis: Heparin drip---> to eliquis from today evening. DNR/DNI Dispo: PCU. PT/OT, CM to assist with DC pLan. Admission and Anticipated Discharge Date Admission Date: July 18, 2023 Subjective Patient seen and examined at bedside. Patient is needing increased oxygen today, 5 L today, is desaturating with activity according to OT. Checks x-ray with worsening pneumonia and fluid congestion. Pulmonology consulted. Discussed with nutrition, decreasing free water flushes from tube feeding. Patient otherwise feels better, crackles feels improved on exam. Patient reports improvement in her nausea and sick in the stomach feeling. Continue with PPI. Patient's at bedside was also updated on plan of care. Of note below, patient has dysarthria at baseline from history of cancer status post radiation treatment. Physical Exam Physical Exam: GENERAL APPEARANCE: Awake and alert, ill and frail appearing woman HEENT: NC, AT. moist mucous membranes. EOMI, restricted movement of mandible NECK: Supple without lymphadenopathy. No stiffness or restricted ROM. HEART: regular rate, in 100s - 120s LUNGS: crackles and rhonchi improving ABDOMEN: Soft, nontender, nondistended, peg tube in situ. BACK: No CVAT, no obvious deformity. EXTREMITIES: Without cyanosis, clubbing or edema. NEUROLOGICAL: Grossly nonfocal. Alert and oriented, moving all 4 extremities. CN not formally tested but appear grossly intact. Skin: Warm and dry without any rash. Results & Data Results & Data Vital Signs (Past 12 Hours) Vital Signs Temp Pulse Resp BP Pulse Ox Pulse Ox Pulse Ox 07/23/23 14:46 91 90 07/23/23 12:41 07/23/23 10:58 36.8 C 62 19 132/68 91 07/23/23 07:08 36.8 C 69 19 157/75 H 92 07/23/23 03:50 91 07/23/23 03:45 88 L Pulse Ox O2 Del Method O2 Flow Rate O2 Flow Rate O2 Flow Rate O2 Flow Rate 07/23/23 14:46 86 L 6 6 6 07/23/23 12:41 Oxymask 5 07/23/23 10:58 Oxymask 5 07/23/23 07:08 Oxymask 5 07/23/23 03:50 Oxymask 6 07/23/23 03:45 Nasal Cannula 4 (3) Aspiration pneumonia Aspiration pneumonia type: unspecified Laterality: bilateral Lung location: lower lobe of lung Qualified Code(s): J69.0 - Pneumonitis due to inhalation of food and vomit
[2023-07-23] MEDS: TUBE FEEDING WATER FLUSH GT SCH (17:46)
[2023-07-23] MEDS: APIXABAN 2.5 MG TAB PO SCH (21:02)
[2023-07-23] MEDS: STOP HEPARIN DRIP ORDER SCH (21:02)
--- NOTE | 2023-07-24 07:38 | Pulmonology Progress Note ---
Date of Service July 24, 2023 Assessment & Plan (1) Acute hypoxic respiratory failure: (2) Multifocal pneumonia: (3) Tongue cancer: (4) Sarcoidosis: Plan CTA chest 07/18/2023 personally reviewed: Bilateral apical pleural scarring Patchy opacities appreciated bilaterally in the lower lobes especially in the left lower lobe, inferior lobe of the lingula also affected Minimal station 7 lymphadenopathy -- Acute hypoxic respiratory failure Secondary to Multilobar Pneumonia Aspiration cannot be ruled out Respiratory bio fire negative for everything on 07/18/2023 Procalcitonin 2.19, nasal MRSA negative BNP 427 -- Sarcoidosis Bilateral apical pleural scarring with some reticular opacities in the upper lobes which are chronic and present since CT chest 12/2013 Patient was never treated for it. Plan: In/out: -697, urine output 1352 Chest x-ray from today does not show any significant change compared to yesterday. Continue with diuretics to keep the patient negative balance Continue with antibiotics, incentive spirometry will beneficial Continue with flutter valve. Out of the bed to chair. Case was discussed with Dr. Brooks and RN at bedside Please note the above document was generated using voice recognition software. It may contain grammatical, syntax or spelling errors.Any formal questions or concerns about the content, text or information contained within the body of this dictation should be directly addressed to the provider for clarification. Admission and Anticipated Discharge Date Admission Date: July 18, 2023 Subjective Patient seen and examined at bedside. No acute distress, no adverse events overnight She was saturating 97-98% on 9 L oxygen. I went down to 6 L She stated that she is feeling the same. May be improved when it comes to her breathing Has been coughing but not bringing up any phlegm Denies any chest pain. No headache She is excited to sit on the chair if there is a possibility. Review of Systems 2 Review of Systems: All systems reviewed & are unremarkable except as noted in Subjective Physical Exam 2 Physical Exam: Constitutional: No acute distress HEENT: EOMI, PERRLA, neck scar appreciated Respiratory system: Decreased air entry bilaterally, no wheeze, no rhonchi, positive crackles bilaterally CVS: S1-S2 positive, no murmurs or gallops Abdomen: Soft, nontender, nondistended, positive bowel sounds x4, positive PEG Extremities: +2 pulses bilaterally radialis/ dorsalis pedis, no cyanosis, no edema Neuro: Awake alert oriented x3 Psych: Normal mood and affect G/U: No [place] Skin: no rashes, warm and dry Lymphatic: no cervical or axillary lymphadenopathy Results & Data Results & Data Vital Signs (Past 12 Hours) Vital Signs Temp Pulse Pulse Resp BP Pulse Ox O2 Del Method 07/24/23 07:21 36.9 C 71 19 145/74 H 96 Oxymask 07/24/23 03:04 36 C L 93 H 18 148/83 H 93 Oxymask 07/23/23 22:02 36.7 C 75 20 122/72 91 Oxymask 07/23/23 22:00 68 07/23/23 20:00 Oxymask O2 Flow Rate 07/24/23 07:21 8 07/24/23 03:04 9 07/23/23 22:02 8 07/23/23 22:00 07/23/23 20:00 8 Laboratory Results 07/24/23 07:12 07/24/23 07:12 PG Care Time/CCT Total # of Minutes Spent Total Time Spent with Patient: Total time spent is greater than 50% in coordination of care (as documented) at patient's floor/unit and/or counseling patient: Coding Level of Care Code 10871 SUB INP/OBS CARE 3/50MIN Diagnoses Acute hypoxic respiratory failure J96.01 Multifocal pneumonia J18.9 Tongue cancer C02.9 Sarcoidosis D86.9
[2023-07-24 07:43] LABS: Hematocrit (blood only) 37.5 % (37.0-47.0); Hemoglobin 12.5 g/dl (12.0-16.0); Mean Corpuscular Hemoglobin 29.9 pg (25.0-34.0); Mean Corpuscular Hgb Conc 33.3 g/dL (32.0-36.0); Mean Corpuscular Volume 89.7 fL (80.0-100.0); Mean Platelet Volume 12.1 fL (9.4-12.4); Platelet Count 156 K/uL (130-400); RDW Coefficient of Variation 14.2 % (11.5-14.5); RDW Standard Deviation 46.8 fL (36.4-46.3); Red Blood Count 4.18 M/uL (4.20-5.40); White Blood Count 5.49 K/ul (4.8-10.8)
--- NOTE | 2023-07-24 08:04 | XRay Report ---
XR chest 1V portable CLINICAL HISTORY: f/u COMPARISON STUDY: Chest CT July 18, 2023. Chest radiograph July 23, 2023. FINDINGS: No pneumothorax. Small left pleural effusion is similar to prior exam. Multifocal airspace opacities, including left basilar consolidation, persist. Interstitial thickening is similar to prior exam. Skin folds project over the right chest. IMPRESSION: 1. No change in multifocal pneumonia and a small left pleural effusion. 2. Interstitial thickening, similar to prior exam. This favors superimposed pulmonary edema. ACT 112: Negative or not required by law. Electronically signed by: Eloy Green M.D. 07/24/2023 8:03 AM
[2023-07-24 08:08] LABS: BUN Creatinine Ratio 45.2 (10-20); Calcium 8.2 mg/dl (8.6-10.3); Creatinine Clr Calc Pharmacy 85.9 ml/min; Est GFR (Non-African American) 97.5 ml/min; Phosphorus 2.2 mg/dl (2.5-4.9); Potassium 3.7 mmol/L (3.5-5.1)
[2023-07-24] MEDS ORDERED: POTASSIUM PHOS 3 MMOL/1 ML INFUSION IV STA (08:32)
[2023-07-24] MEDS: FUROSEMIDE INJ 20 MG/2 ML VIAL IV ONE (09:06)
[2023-07-24] MEDS: POTASSIUM PHOSPHATE 21 MMOL in SODIUM CHLORIDE 0.9% 500 ML IV ONE (09:33)
[2023-07-24] MEDS: FIBERSOURCE HN 1.2 CAL 1000 ML BAG GT SCH (15:47)
--- NOTE | 2023-07-24 16:04 | Hospitalist Progress Note ---
Date of Service July 24, 2023 Assessment & Plan (1) Severe sepsis: (2) Acute hypoxic respiratory failure: (3) Aspiration pneumonia: (4) Acute mastitis of left breast: (5) Lactic acidosis: (6) Elevated troponin: (7) Metabolic encephalopathy: (8) Respiratory acidosis: Plan 78 yr old F who has significant past medical history of left breast CA status post partial mastectomy in 2004, 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 She is being managed for the following: Severe sepsis POA Acute hypoxic respiratory failure Aspiration pneumonia Acute mastitis of left breast Lactic acidosis Metabolic encephalopathy Respiratory acidosis Blood cultures are pending - NG48hr, urine negative for infection Admitted Chest CT noted multifocal airspace opacities compatible with pneumonia Got IVF bolus for sepsis in ER Continue broad-spectrum IV antibiotics with cefepime 07/17 and Flagyl 07/17 Pulmonary toilet with hypertonic saline, flutter valve, incentive spirometry Lactic acid was 6.3 on presentation, trended down to 1.2 Follow up infectious workup - no Cx growth so far 07/22 CXR w/ worsening pna, Pulm consult. CXR also indicating some fluid overload, Lasix as needed and free water flushes decreased between tube feeds. Wean down oxygen as tolerated. L breast mastitis Hx of L breast Ca Continue IV antibiotics as above Had an episode in March as well Needs outpatient mammogram Erythema has resolved. New Onset AFlutter/fib with RVR: noted 07/18 evening, in setting of sepsis. TSH wnl. Currently sinus rhythm. Cardiology evaluated. Started on metoprolol then changed to Coreg for hypertension management as well. Heart rate under control. Was started on heparin drip, transitioned to Eliquis 2.5 mg twice daily from 06/29 5 evening. Patient and her agreeable to the cost of Eliquis [$15 a month per CM]. c/w eliquis, monitor hnh. Elevated troponin Patient without chest pain Trop flat Likely demand ischemia Last echocardiogram 12/2022 revealed a preserved EF with mild MR/TR Hx of SCC of tongue S/p PEG tube NPO Nutrition on board Continue tube feeding regimen Possible APD: c/w PPI daily. Hypothyroidism Chronic, stable Continue levothyroxine Constipation CT a/p reveals Large amount well-formed stool seen within the distal sigmoid colon/rectum. Continue bowel regimen, moving BM ok currently per pt. DVT prophylaxis: eliquis. DNR/DNI Dispo: PCU. PT/OT, CM to assist with DC pLan. Admission and Anticipated Discharge Date Admission Date: July 18, 2023 Subjective Patient seen and examined at bedside. Patient was sitting up in chair, NAD, on 5 L oxygen via oxygen mask, no new acute event overnight, but patient reported not being able to sleep overnight. Will give additional dose of Lasix since blood pressure is acceptable. Free water flushes has been decreased, will continue to monitor her breathing. Patient herself reports feeling better, no sick in stomach, reports breathing better. Patient's at bedside who was also updated on plan of care. Of note below, patient has dysarthria at baseline from history of cancer status post radiation treatment. Physical Exam Physical Exam: GENERAL APPEARANCE: Awake and alert, ill and frail appearing woman, 5L O2 via OM. HEENT: NC, AT. moist mucous membranes. EOMI, restricted movement of mandible NECK: Supple without lymphadenopathy. No stiffness or restricted ROM. HEART: regular rate LUNGS: crackles and rhonchi improving ABDOMEN: Soft, nontender, nondistended, peg tube in situ. BACK: No CVAT, no obvious deformity. EXTREMITIES: Without cyanosis, clubbing or edema. NEUROLOGICAL: Grossly nonfocal. Alert and oriented, moving all 4 extremities. CN not formally tested but appear grossly intact. Skin: Warm and dry without any rash. Results & Data Results & Data Vital Signs (Past 12 Hours) Vital Signs Temp Pulse Pulse Resp BP Pulse Ox O2 Del Method 07/24/23 14:54 67 07/24/23 11:09 36.5 C 71 18 117/80 94 Oxymask 07/24/23 10:18 67 07/24/23 10:18 Oxymask 07/24/23 07:21 36.9 C 71 19 145/74 H 96 Oxymask O2 Flow Rate 07/24/23 14:54 07/24/23 11:09 5 07/24/23 10:18 07/24/23 10:18 6 07/24/23 07:21 8 (3) Aspiration pneumonia Aspiration pneumonia type: unspecified Laterality: bilateral Lung location: lower lobe of lung Qualified Code(s): J69.0 - Pneumonitis due to inhalation of food and vomit
[2023-07-24] MEDS: MELATONIN 3 MG TAB PO SCH (20:48)
[2023-07-25 06:49] LABS: Hematocrit (blood only) 34.8 % (37.0-47.0)
[2023-07-25 07:16] LABS: BUN Creatinine Ratio 54.5 (10-20); Calcium 8.1 mg/dl (8.6-10.3); Est GFR (African American) 111.3 ml/min; Magnesium 2.1 mg/dl (1.7-2.4); Phosphorus 2.4 mg/dl (2.5-4.9); Potassium 3.9 mmol/L (3.5-5.1)
--- NOTE | 2023-07-25 07:31 | Pulmonology Progress Note ---
Date of Service July 25, 2023 Assessment & Plan (1) Acute hypoxic respiratory failure: (2) Multifocal pneumonia: (3) Tongue cancer: (4) Sarcoidosis: Plan CTA chest 07/18/2023 personally reviewed: Bilateral apical pleural scarring Patchy opacities appreciated bilaterally in the lower lobes especially in the left lower lobe, inferior lobe of the lingula also affected Minimal station 7 lymphadenopathy -- Acute hypoxic respiratory failure Secondary to Multilobar Pneumonia Aspiration cannot be ruled out Respiratory bio fire negative for everything on 07/18/2023 Procalcitonin 2.19, nasal MRSA negative BNP 427 -- Sarcoidosis Bilateral apical pleural scarring with some reticular opacities in the upper lobes which are chronic and present since CT chest 12/2013 Patient was never treated for it. Plan: In/out: +7.5 L since coming to the hospital, although we do not have strict output as she is incontinent. Continue with diuretics as tolerated to keep the patient negative balance Complete the course of antibiotics Continue with incentive spirometry and flutter valve Out of the bed to chair. Case was discussed with Dr. Brooks and RN at bedside No further recommendation from pulmonary perspective, will sign off Please call directly with any questions Please note the above document was generated using voice recognition software. It may contain grammatical, syntax or spelling errors.Any formal questions or concerns about the content, text or information contained within the body of this dictation should be directly addressed to the provider for clarification. Admission and Anticipated Discharge Date Admission Date: July 18, 2023 Subjective Patient seen and examined at bedside. No acute distress, notable symptoms overnight She was sitting on the chair at the time of examination. Saturation was 94% on 3 L OxyMask Denies any chest pain. No abdominal pain. Shortness of breath seems to be improving Review of Systems 2 Review of Systems: All systems reviewed & are unremarkable except as noted in Subjective Physical Exam 2 Physical Exam: Constitutional: No acute distress HEENT: EOMI, PERRLA, neck scar appreciated Respiratory system: Decreased air entry bilaterally, no wheeze, no rhonchi, positive crackles bilaterally CVS: S1-S2 positive, no murmurs or gallops Abdomen: Soft, nontender, nondistended, positive bowel sounds x4, positive PEG Extremities: +2 pulses bilaterally radialis/ dorsalis pedis, no cyanosis, no edema Neuro: Awake alert oriented x3 Psych: Normal mood and affect G/U: No [place] Skin: no rashes, warm and dry Lymphatic: no cervical or axillary lymphadenopathy Results & Data Results & Data Vital Signs (Past 12 Hours) Vital Signs Temp Pulse Pulse Resp BP Pulse Ox O2 Del Method 07/25/23 04:33 36.1 C L 65 16 103/63 93 Oxymask 07/24/23 22:41 36.6 C 93 H 16 97/60 L 93 Oxymask 07/24/23 21:55 63 07/24/23 20:00 Oxymask 07/24/23 19:47 37.1 C 68 17 107/64 95 Oxymask O2 Flow Rate 07/25/23 04:33 5 07/24/23 22:41 07/24/23 21:55 07/24/23 20:00 3 07/24/23 19:47 5 Laboratory Results 07/25/23 06:17 07/25/23 06:17 PG Care Time/CCT Total # of Minutes Spent Total Time Spent with Patient: Total time spent is greater than 50% in coordination of care (as documented) at patient's floor/unit and/or counseling patient: Coding Level of Care Code 71199 SUB INP/OBS CARE 2/35MIN Diagnoses Acute hypoxic respiratory failure J96.01 Multifocal pneumonia J18.9 Tongue cancer C02.9 Sarcoidosis D86.9
[2023-07-25] MEDS ORDERED: POTASSIUM PHOS 3 MMOL/1 ML INFUSION IV STA (07:55)
[2023-07-25] MEDS: FUROSEMIDE INJ 20 MG/2 ML VIAL IV ONE (08:15)
[2023-07-25] MEDS: POTASSIUM PHOSPHATE 21 MMOL in SODIUM CHLORIDE 0.9% 500 ML IV ONE (08:49)
[2023-07-25] MEDS: ACETAMINOPHEN 325 MG TAB PO PRN (11:33)
[2023-07-25] MEDS ORDERED: DOCUSATE SODIUM/SENNA 50/8.6MG TAB PEG PRN (14:51)
--- NOTE | 2023-07-25 14:51 | Hospitalist Progress Note ---
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 She is being managed for the following: Severe sepsis POA Acute hypoxic respiratory failure Aspiration pneumonia Acute mastitis of left breast Lactic acidosis Metabolic encephalopathy Respiratory acidosis Blood cultures are pending - NG48hr, urine negative for infection Admitted Chest CT noted multifocal airspace opacities compatible with pneumonia Got IVF bolus for sepsis in ER Continue broad-spectrum IV antibiotics with cefepime 07/17 and Flagyl 07/17 Pulmonary toilet with hypertonic saline, flutter valve, incentive spirometry Lactic acid was 6.3 on presentation, trended down to 1.2 Follow up infectious workup - no Cx growth so far 07/22 CXR w/ worsening pna, Pulm consult. CXR also indicating some fluid overload, Lasix as needed and free water flushes decreased between tube feeds. Wean down oxygen as tolerated. ATB for total of 10 days. L breast mastitis Hx of L breast Ca Continue IV antibiotics as above Had an episode in March as well Needs outpatient mammogram Erythema has resolved. New Onset AFlutter/fib with RVR: noted 07/18 evening, in setting of sepsis. TSH wnl. Currently sinus rhythm. Cardiology evaluated. Started on metoprolol then changed to Coreg for hypertension management as well. Heart rate under control. Was started on heparin drip, transitioned to Eliquis 2.5 mg twice daily from 07/22 evening. Patient and her agreeable to the cost of Eliquis [$15 a month per CM]. c/w eliquis, monitor hnh. Elevated troponin Patient without chest pain Trop flat Likely demand ischemia Last echocardiogram 12/2022 revealed a preserved EF with mild MR/TR Hx of SCC of tongue S/p PEG tube NPO Nutrition on board Continue tube feeding regimen Possible APD: c/w PPI daily. Hypothyroidism Chronic, stable Continue levothyroxine Constipation CT a/p reveals Large amount well-formed stool seen within the distal sigmoid colon/rectum. Continue bowel regimen, moving BM ok currently per pt. DVT prophylaxis: eliquis. DNR/DNI Dispo: PCU. PT/OT, CM to assist with DC pLan. Admission and Anticipated Discharge Date Admission Date: July 18, 2023 Subjective Patient seen and examined at bedside. Patient was sitting up in chair, NAD, on 3 L oxygen via oxygen mask, no new acute event overnight, denies sob. Will give additional dose of Lasix since blood pressure is acceptable in am. Free water flushes has been decreased, will continue to monitor her breathing. Patient herself reports feeling better, no sick in stomach. Of note below, patient has dysarthria at baseline from history of cancer status post radiation treatment. Physical Exam Physical Exam: GENERAL APPEARANCE: Awake and alert, ill and frail appearing woman, 3L O2 via OM. HEENT: NC, AT. moist mucous membranes. EOMI, restricted movement of mandible NECK: Supple without lymphadenopathy. No stiffness or restricted ROM. HEART: regular rate LUNGS: crackles and rhonchi improved ABDOMEN: Soft, nontender, nondistended, peg tube in situ. BACK: No CVAT, no obvious deformity. EXTREMITIES: Without cyanosis, clubbing or edema. NEUROLOGICAL: Grossly nonfocal. Alert and oriented, moving all 4 extremities. CN not formally tested but appear grossly intact. Skin: Warm and dry without any rash. Results & Data Results & Data Vital Signs (Past 12 Hours) Vital Signs Temp Pulse Pulse Resp BP Pulse Ox O2 Del Method 07/25/23 11:31 36.4 C L 60 17 97/60 L 95 Oxymask 07/25/23 09:00 65 07/25/23 09:00 Oxymask 07/25/23 07:43 36.7 C 67 17 131/71 95 Oxymask 07/25/23 04:33 36.1 C L 65 16 103/63 93 Oxymask O2 Flow Rate 07/25/23 11:31 3 07/25/23 09:00 07/25/23 09:00 3 07/25/23 07:43 5 07/25/23 04:33 5 (3) Aspiration pneumonia Aspiration pneumonia type: unspecified Laterality: bilateral Lung location: lower lobe of lung Qualified Code(s): J69.0 - Pneumonitis due to inhalation of food and vomit
[2023-07-26 07:58] LABS: Hematocrit (blood only) 38.1 % (37.0-47.0); Hemoglobin 12.7 g/dl (12.0-16.0)
[2023-07-26 08:26] LABS: BUN Creatinine Ratio 44.9 (10-20); Calcium 8.3 mg/dl (8.6-10.3); Creatinine Clr Calc Pharmacy 73.6 ml/min; Est GFR (African American) 107.4 ml/min; Est GFR (Non-African American) 92.7 ml/min; Magnesium 2.2 mg/dl (1.7-2.4); Phosphorus 2.1 mg/dl (2.5-4.9); Potassium 4.2 mmol/L (3.5-5.1)
[2023-07-26] MEDS ORDERED: SODIUM PHOSPHATE 3 MMOL/1 ML 5 ML VIAL IV ONE (09:20)
--- NOTE | 2023-07-26 09:40 | Pulmonology Progress Note ---
Date of Service July 26, 2023 Assessment & Plan (1) Acute hypoxic respiratory failure: (2) Multifocal pneumonia: (3) Tongue cancer: (4) Sarcoidosis: Plan CTA chest 07/18/2023 personally reviewed: Bilateral apical pleural scarring Patchy opacities appreciated bilaterally in the lower lobes especially in the left lower lobe, inferior lobe of the lingula also affected Minimal station 7 lymphadenopathy -- Acute hypoxic respiratory failure Secondary to Multilobar Pneumonia Aspiration cannot be ruled out Respiratory bio fire negative for everything on 07/18/2023 Procalcitonin 2.19, nasal MRSA negative BNP 427 -- Sarcoidosis Bilateral apical pleural scarring with some reticular opacities in the upper lobes which are chronic and present since CT chest 12/2013 Patient was never treated for it. Plan: Complete the course of antibiotics Continue with incentive spirometry and flutter valve Out of the bed to chair. Case was discussed with RN at bedside No further recommendation from pulmonary perspective, will sign off Please call directly with any questions Please note the above document was generated using voice recognition software. It may contain grammatical, syntax or spelling errors.Any formal questions or concerns about the content, text or information contained within the body of this dictation should be directly addressed to the provider for clarification. Admission and Anticipated Discharge Date Admission Date: July 18, 2023 Subjective Patient seen and examined at bedside. No acute distress, no adverse events overnight. Patient was in a pleasant mood today. She was saturating 98-99% on room air. Denied any chest pain, no cough. No headache, no blurry vision. Review of Systems 2 Review of Systems: All systems reviewed & are unremarkable except as noted in Subjective Physical Exam 2 Physical Exam: Constitutional: No acute distress HEENT: EOMI, PERRLA, neck scar appreciated Respiratory system: Decreased air entry bilaterally, no wheeze, no rhonchi, positive crackles bilaterally CVS: S1-S2 positive, no murmurs or gallops Abdomen: Soft, nontender, nondistended, positive bowel sounds x4, positive PEG Extremities: +2 pulses bilaterally radialis/ dorsalis pedis, no cyanosis, no edema Neuro: Awake alert oriented x3 Psych: Normal mood and affect G/U: No [place] Skin: no rashes, warm and dry Lymphatic: no cervical or axillary lymphadenopathy Results & Data Results & Data Vital Signs (Past 12 Hours) Vital Signs Temp Pulse Pulse Resp BP Pulse Ox O2 Del Method 07/26/23 08:06 36.5 C 64 16 94 Room Air 07/26/23 08:00 67 07/26/23 08:00 Room Air 07/26/23 07:46 144/76 H 07/26/23 03:33 36.6 C 64 18 114/65 90 Room Air 07/25/23 23:34 36.5 C 63 18 103/59 L 90 Room Air 07/25/23 22:50 57 L Laboratory Results 07/26/23 07:33 07/26/23 07:33 PG Care Time/CCT Total # of Minutes Spent Total Time Spent with Patient: Total time spent is greater than 50% in coordination of care (as documented) at patient's floor/unit and/or counseling patient: Coding Level of Care Code 06033 SUB INP/OBS CARE 2/35MIN Diagnoses Acute hypoxic respiratory failure J96.01 Multifocal pneumonia J18.9 Tongue cancer C02.9 Sarcoidosis D86.9
[2023-07-26] MEDS: SODIUM PHOSPHATE 24 MMOL in SODIUM CHLORIDE 0.9% 500 ML IV ONE (09:57)
[2023-07-26] MEDS: FUROSEMIDE INJ 20 MG/2 ML VIAL IV ONE (09:57)
--- NOTE | 2023-07-26 13:47 | Hospitalist Progress Note ---
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 She is being managed for the following: Severe sepsis POA Acute hypoxic respiratory failure Metabolic encephalopathy Respiratory acidosis Aspiration pneumonia Admitted Chest CT noted multifocal airspace opacities compatible with pneumonia Blood cultures are pending - NG48hr, urine negative for infection Got IVF bolus for sepsis in ER Continue broad-spectrum IV antibiotics with cefepime 07/17 and Flagyl 07/17 Pulmonary toilet with hypertonic saline, flutter valve, incentive spirometry Lactic acid was 6.3 on presentation, trended down to 1.2 Follow up infectious workup - no Cx growth so far 07/22 CXR w/ worsening pna, Pulm consult. Appreciate pulmonary consult and recommendation-Will finish the course of antibiotic Hx of SCC of tongue S/p PEG tube NPO Nutrition on board Continue tube feeding regimen No problem with the tube feeding and has been tolerating well Fluid overload CXR also indicating some fluid overload, Lasix as needed and free water flushes decreased between tube feeds. Wean down oxygen as tolerated. Will give 20 of Lasix IV today with IV phosphate replacement Clinically much better without any shortness of breath at rest and has been saturating normally on room air L breast mastitis Hx of L breast Ca Continue IV antibiotics as above Had an episode in March as well Needs outpatient mammogram Erythema has resolved. New Onset AFlutter/fib with RVR: Noted 07/18 evening, in setting of sepsis. TSH wnl. Currently sinus rhythm. Cardiology evaluated. Started on metoprolol then changed to Coreg for hypertension management as well. Heart rate under control. Was started on heparin drip, transitioned to Eliquis 2.5 mg twice daily from 07/22 evening. Patient and her agreeable to the cost of Eliquis [$15 a month per CM]. c/w eliquis, monitor hnh. Elevated troponin Patient without chest pain Trop flat Likely demand ischemia Last echocardiogram 12/2022 revealed a preserved EF with mild MR/TR Possible APD: c/w PPI daily. Hypothyroidism Chronic, stable Continue levothyroxine Constipation CT a/p reveals Large amount well-formed stool seen within the distal sigmoid colon/rectum. Continue bowel regimen, moving BM ok currently per pt. DVT prophylaxis: eliquis. DNR/DNI Dispo: PCU. PT/OT, CM to assist with DC pLan. Admission and Anticipated Discharge Date Admission Date: July 18, 2023 Subjective 07/26/2023 The patient was seen and examined in telemetry unit in presence of the She has been feeling better but remains generally weak and lethargic Not yet ready to be discharged Review of Systems Review of Systems: All systems reviewed and are unremarkable except as noted below Constitutional: Generally weak and lethargic and is cachectic Physical Exam Physical Exam: Sitting on a chair without any acute distress Constitutional: + well hydrated; no acute distress Eyes: PERRL, conjunctivae normal, anicteric sclerae ENMT: external ear and nose normal, oropharynx normal Neck: trachea midline, no thyromegaly Respiratory: normal respiratory effort; no respiratory distress Cardiovascular: Rate/Rhythm: regular rate and regular rhythm Gastrointestinal (Abdomen): normal bowel sounds, soft, nontender, no hepatosplenomegaly Musculoskeletal: No acute arthritis involving any of the joint Neurologic: normal touch/pain/proprioception and moves all extremities; no focal motor deficits Remains generally weak and lethargic Lymphatic: no cervical or axillary lymphadenopathy Results & Data Results & Data Vital Signs (Past 12 Hours) Vital Signs Temp Pulse Pulse Resp BP Pulse Ox O2 Del Method 07/26/23 11:33 36.8 C 61 16 90/53 L 95 Room Air 07/26/23 08:06 36.5 C 64 16 94 Room Air 07/26/23 08:00 67 07/26/23 08:00 Room Air 07/26/23 07:46 144/76 H 07/26/23 03:33 36.6 C 64 18 114/65 90 Room Air Laboratory Results Short CBC 07/26/23 Range/Units 07:33 Hgb 12.7 (12.0-16.0) g/dl Hct 38.1 (37.0-47.0) % BMP 07/26/23 07:33 Sodium 138 Potassium 4.2 Chloride 105 Carbon Dioxide 28 BUN 22 Creatinine 0.49 L Glucose 152 H Calcium 8.3 L Medications Administered Current Inpatient Medications Acetaminophen (Acetaminophen 325 Mg Tab) 650 mg PO Q4H PRN PRN Reason: Pain or Fever Stop: 08/17/23 15:40 Last Admin: 07/25/23 11:33 Dose: 650 mg Al Hydrox/Mg Hydrox/Simethicone (Aluminum/Magnesium Susp 30 Ml Udc) 15 ml PO Q4H PRN PRN Reason: Dyspepsia Stop: 08/17/23 15:40 Last Admin: 07/19/23 13:40 Dose: 15 ml Apixaban (Apixaban 2.5 Mg Tab) 2.5 mg PO BID NERY Stop: 08/22/23 20:59 Last Admin: 07/26/23 07:40 Dose: 2.5 mg Carvedilol (Carvedilol 6.25 Mg Tab) 6.25 mg PEG BIDM [facility] Stop: 08/21/23 16:59 Last Admin: 07/26/23 07:40 Dose: 6.25 mg Enteral Nutritional Formula (Fibersource Hn 1.2 Hector 1000 Ml Bag) 1,000 ml GT .See Protocol NERY; Protocol Stop: 08/22/23 16:44 Last Admin: 07/25/23 16:01 Dose: 1,000 ml Guaifenesin (Guaifenesin Sugar Free 100 Mg/5 Ml Udc) 100 mg GT TID [facility] Stop: 08/17/23 20:59 Last Admin: 07/26/23 13:13 Dose: 100 mg Metronidazole (Flagyl) 500 mg in 100 mls @ 100 mls/hr IV Q8H [facility]; Protocol Stop: 07/28/23 20:59 Last Admin: 07/26/23 13:13 Dose: 100 mls/hr Cefepime HCl 2,000 mg/ Syringe 20 mls @ 5 mls/min IV Q8H [facility]; Protocol Stop: 07/28/23 20:59 Last Admin: 07/26/23 09:20 Dose: 5 mls/min Promethazine HCl 12.5 mg/ (Sodium Chloride) 50.5 mls @ 202 mls/hr IV Q6H PRN PRN Reason: Nausea And Vomiting Stop: 08/20/23 12:09 Last Infusion: 07/21/23 19:56 Dose: Infused Sodium Phosphate 24 mmol/ (Sodium Chloride) 508 mls @ 88 mls/hr IV ONE ONE Stop: 07/26/23 15:31 Last Admin: 07/26/23 09:57 Dose: 88 mls/hr Lansoprazole (Lansoprazole 30 Mg Soltab) 30 mg PEG QAM [facility] Stop: 08/21/23 12:29 Last Admin: 07/26/23 07:40 Dose: 30 mg Levothyroxine Sodium (Levothyroxine Sodium 100 Mcg Tablet) 100 mcg GT DAILY [facility] Stop: 08/18/23 08:59 Last Admin: 07/26/23 07:40 Dose: 100 mcg Losartan Potassium (Losartan Potassium 25 Mg Tab) 25 mg PO QAM [facility] Stop: 08/21/23 13:44 Last Admin: 07/26/23 07:40 Dose: 25 mg Magnesium Hydroxide (Magnesium Hydroxide Susp 30 Ml Udc) 30 ml PO Q12H PRN PRN Reason: Constipation Stop: 08/17/23 15:40 Melatonin (Melatonin 3 Mg Tab) 3 mg PO HS [facility] Stop: 07/28/23 21:01 Last Admin: 07/25/23 19:58 Dose: 3 mg Ondansetron HCl (Ondansetron Inj 2 Mg/Ml 2 Ml Vial) 4 mg IV Q6H PRN PRN Reason: Nausea And Vomiting Stop: 08/19/23 15:16 Last Admin: 07/21/23 09:26 Dose: 4 mg Polyethylene Glycol (Polyethylene (Miralax) 17 Gm Pack) 17 gm PO DAILY PRN PRN Reason: Constipation Stop: 08/17/23 15:40 Last Admin: 07/20/23 12:52 Dose: 17 gm Senna/Docusate Sodium (Docusate Sodium/Senna 50/8.6mg Tab) 1 tab PEG QAM PRN PRN Reason: constipation Stop: 08/17/23 15:14 Sodium Chloride (Sodium Chlor 7% 4 Ml Neb) 4 ml NEB BIDR PRN PRN Reason: sputum induction Stop: 08/17/23 18:59 Last Admin: 07/22/23 13:00 Dose: 4 ml Sterile Water (Tube Feeding Water Flush) 50 ml GT Q4 [facility] Stop: 08/22/23 15:59 Last Admin: 07/26/23 13:13 Dose: 50 ml (3) Aspiration pneumonia Aspiration pneumonia type: unspecified Laterality: bilateral Lung location: lower lobe of lung Qualified Code(s): J69.0 - Pneumonitis due to inhalation of food and vomit
[2023-07-27 07:19] LABS: Basophils # (auto) 0.02 K/uL (0.00-0.20); Basophils % (auto) 0.4 %; Eosinophils % (auto) 3.6 %; Hematocrit (blood only) 34.7 % (37.0-47.0); Hemoglobin 11.4 g/dl (12.0-16.0); Immature Granulocytes # (auto) 0.11 K/uL (0.01-0.20); Lymphocytes # (auto) 0.73 K/uL (1.20-3.40); Mean Corpuscular Hemoglobin 30.2 pg (25.0-34.0); Mean Corpuscular Hgb Conc 32.9 g/dL (32.0-36.0); Mean Platelet Volume 12.1 fL (9.4-12.4); Monocytes # (auto) 0.42 K/uL (0.11-0.59); Monocytes % (auto) 7.5 %; Neutrophils # (auto) 4.15 K/uL (1.40-6.50); Neutrophils % (auto) 73.5 %; Platelet Count 228 K/uL (130-400); RDW Coefficient of Variation 14.8 % (11.5-14.5); RDW Standard Deviation 49.9 fL (36.4-46.3); Red Blood Count 3.77 M/uL (4.20-5.40); White Blood Count 5.63 K/ul (4.8-10.8)
[2023-07-27 07:32] LABS: BUN Creatinine Ratio 48.9 (10-20); Calcium 7.9 mg/dl (8.6-10.3); Creatinine Clr Calc Pharmacy 76.8 ml/min; Est GFR (African American) 108.9 ml/min; Est GFR (Non-African American) 93.9 ml/min; Magnesium 2.2 mg/dl (1.7-2.4); Phosphorus 2.2 mg/dl (2.5-4.9)
[2023-07-27] MEDS ORDERED: SODIUM PHOSPHATE 3 MMOL/1 ML 5 ML VIAL IV ONE (08:13)
[2023-07-27] MEDS: SODIUM PHOSPHATE 24 MMOL in SODIUM CHLORIDE 0.9% 500 ML IV ONE (09:03)
--- NOTE | 2023-07-27 12:36 | Hospitalist Progress Note ---
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 She is being managed for the following: Severe sepsis POA Acute hypoxic respiratory failure Metabolic encephalopathy Respiratory acidosis Aspiration pneumonia Admitted Chest CT noted multifocal airspace opacities compatible with pneumonia Blood cultures are pending - NG48hr, urine negative for infection Got IVF bolus for sepsis in ER Continue broad-spectrum IV antibiotics with cefepime 07/17 and Flagyl 07/17 Pulmonary toilet with hypertonic saline, flutter valve, incentive spirometry Lactic acid was 6.3 on presentation, trended down to 1.2 Follow up infectious workup - no Cx growth so far 07/22 CXR w/ worsening pna, Pulm consult. Appreciate pulmonary consult and recommendation-Will finish the course of antibiotic Clinically much improved with improvement of weakness and tiredness Denies any respiratory symptoms Has been ambulating without much difficulties She is back to her baseline and will be discharged home this afternoon Hx of SCC of tongue S/p PEG tube NPO Nutrition on board Continue tube feeding regimen No problem with the tube feeding and has been tolerating well Fluid overload CXR also indicating some fluid overload, Lasix as needed and free water flushes decreased between tube feeds. Wean down oxygen as tolerated. Will give 20 of Lasix IV today with IV phosphate replacement Clinically much better without any shortness of breath at rest and has been saturating normally on room air Has been saturating normally on room air does not have any symptoms of shortness of breath or chest pain L breast mastitis Hx of L breast Ca Continue IV antibiotics as above Had an episode in March as well Needs outpatient mammogram Erythema has resolved. New Onset AFlutter/fib with RVR: Noted 07/18 evening, in setting of sepsis. TSH wnl. Currently sinus rhythm. Cardiology evaluated. Started on metoprolol then changed to Coreg for hypertension management as well. Heart rate under control. Was started on heparin drip, transitioned to Eliquis 2.5 mg twice daily from 07/22 evening. Patient and her agreeable to the cost of Eliquis [$15 a month per CM]. c/w eliquis, monitor hnh. Elevated troponin Patient without chest pain Trop flat Likely demand ischemia Last echocardiogram 12/2022 revealed a preserved EF with mild MR/TR Blood pressure remains on the lower side Denies any symptoms with ambulation We will adjust the blood pressure medications Possible APD: c/w PPI daily. Hypothyroidism Chronic, stable Continue levothyroxine Constipation CT a/p reveals Large amount well-formed stool seen within the distal sigmoid colon/rectum. Continue bowel regimen, moving BM ok currently per pt. DVT prophylaxis: eliquis. DNR/DNI Dispo: PCU. PT/OT, CM to assist with DC pLan. Discussed with the and the patient and answered all of their questions Admission and Anticipated Discharge Date Admission Date: July 18, 2023 Subjective 07/26/2023 The patient was seen and examined in telemetry unit in presence of the She has been feeling better but remains generally weak and lethargic Not yet ready to be discharged 07/27/2019 The patient was seen and examined in telemetry unit in presence of the She has been feeling much better remains generally weak but has improved a lot Denies any significant symptoms Has been ambulating without much difficulty and seems to be at his baseline Will be discharged home this afternoon Review of Systems Review of Systems: All systems reviewed and are unremarkable except as noted below Constitutional: Generally weak and lethargic and is cachectic Physical Exam Physical Exam: Sitting on a chair without any acute distress Constitutional: + well hydrated; no acute distress Eyes: PERRL, conjunctivae normal, anicteric sclerae ENMT: external ear and nose normal, oropharynx normal Neck: trachea midline, no thyromegaly Respiratory: normal respiratory effort; no respiratory distress Cardiovascular: Rate/Rhythm: regular rate and regular rhythm Gastrointestinal (Abdomen): normal bowel sounds, soft, nontender, no hepatosplenomegaly PEG tube in situ without any evidence of local infection Musculoskeletal: No acute arthritis involving any of the joint Neurologic: normal touch/pain/proprioception and moves all extremities; no focal motor deficits Lymphatic: no cervical or axillary lymphadenopathy Results & Data Results & Data Vital Signs (Past 12 Hours) Vital Signs Temp Pulse Pulse Resp BP Pulse Ox O2 Del Method 07/27/23 10:48 36.6 C 61 16 85/42 L 92 Room Air 07/27/23 10:47 79/57 L 07/27/23 08:08 36.6 C 65 16 145/65 H 94 Room Air 07/27/23 08:00 62 07/27/23 03:04 36.5 C 78 18 106/78 96 Room Air Laboratory Results Short CBC 07/27/23 Range/Units 06:27 WBC 5.63 (4.8-10.8) K/ul Hgb 11.4 L (12.0-16.0) g/dl Hct 34.7 L (37.0-47.0) % Plt Count 228 (130-400) K/uL BMP 07/27/23 06:27 Sodium 139 Potassium 4.0 Chloride 107 Carbon Dioxide 29 BUN 23 Creatinine 0.47 L Glucose 152 H Calcium 7.9 L Medications Administered Current Inpatient Medications Acetaminophen (Acetaminophen 325 Mg Tab) 650 mg PO Q4H PRN PRN Reason: Pain or Fever Stop: 08/17/23 15:40 Last Admin: 07/25/23 11:33 Dose: 650 mg Al Hydrox/Mg Hydrox/Simethicone (Aluminum/Magnesium Susp 30 Ml Udc) 15 ml PO Q4H PRN PRN Reason: Dyspepsia Stop: 08/17/23 15:40 Last Admin: 07/19/23 13:40 Dose: 15 ml Apixaban (Apixaban 2.5 Mg Tab) 2.5 mg PO BID [facility] Stop: 08/22/23 20:59 Last Admin: 07/27/23 09:03 Dose: 2.5 mg Carvedilol (Carvedilol 6.25 Mg Tab) 6.25 mg PEG BIDM [facility] Stop: 08/21/23 16:59 Last Admin: 07/27/23 09:03 Dose: 6.25 mg Enteral Nutritional Formula (Fibersource Hn 1.2 Hector 1000 Ml Bag) 1,000 ml GT .See Protocol NERY; Protocol Stop: 08/22/23 16:44 Last Admin: 07/26/23 16:08 Dose: 1,000 ml Guaifenesin (Guaifenesin Sugar Free 100 Mg/5 Ml Udc) 100 mg GT TID [facility] Stop: 08/17/23 20:59 Last Admin: 07/27/23 09:03 Dose: 100 mg Cefepime HCl 2,000 mg/ Syringe 20 mls @ 5 mls/min IV Q8H [facility]; Protocol Stop: 07/28/23 20:59 Last Admin: 07/27/23 09:04 Dose: 5 mls/min Promethazine HCl 12.5 mg/ (Sodium Chloride) 50.5 mls @ 202 mls/hr IV Q6H PRN PRN Reason: Nausea And Vomiting Stop: 08/20/23 12:09 Last Infusion: 07/21/23 19:56 Dose: Infused Sodium Phosphate 24 mmol/ (Sodium Chloride) 508 mls @ 88 mls/hr IV ONE ONE Stop: 07/27/23 14:46 Last Admin: 07/27/23 09:03 Dose: 88 mls/hr Lansoprazole (Lansoprazole 30 Mg Soltab) 30 mg PEG QAM [facility] Stop: 08/21/23 12:29 Last Admin: 07/27/23 09:03 Dose: 30 mg Levothyroxine Sodium (Levothyroxine Sodium 100 Mcg Tablet) 100 mcg GT DAILY [facility] Stop: 08/18/23 08:59 Last Admin: 07/27/23 09:03 Dose: 100 mcg Losartan Potassium (Losartan Potassium 25 Mg Tab) 25 mg PO QAM [facility] Stop: 08/21/23 13:44 Last Admin: 07/27/23 09:03 Dose: 25 mg Magnesium Hydroxide (Magnesium Hydroxide Susp 30 Ml Udc) 30 ml PO Q12H PRN PRN Reason: Constipation Stop: 08/17/23 15:40 Melatonin (Melatonin 3 Mg Tab) 3 mg PO HS [facility] Stop: 07/28/23 21:01 Last Admin: 07/26/23 21:10 Dose: 3 mg Metronidazole (Metronidazole 500 Mg Tab) 500 mg PO Q8 [facility]; Protocol Stop: 07/28/23 20:59 Ondansetron HCl (Ondansetron Inj 2 Mg/Ml 2 Ml Vial) 4 mg IV Q6H PRN PRN Reason: Nausea And Vomiting Stop: 08/19/23 15:16 Last Admin: 07/21/23 09:26 Dose: 4 mg Polyethylene Glycol (Polyethylene (Miralax) 17 Gm Pack) 17 gm PO DAILY PRN PRN Reason: Constipation Stop: 08/17/23 15:40 Last Admin: 07/20/23 12:52 Dose: 17 gm Senna/Docusate Sodium (Docusate Sodium/Senna 50/8.6mg Tab) 1 tab PEG QAM PRN PRN Reason: constipation Stop: 08/17/23 15:14 Sodium Chloride (Sodium Chlor 7% 4 Ml Neb) 4 ml NEB BIDR PRN PRN Reason: sputum induction Stop: 08/17/23 18:59 Last Admin: 07/22/23 13:00 Dose: 4 ml Sterile Water (Tube Feeding Water Flush) 50 ml GT Q4 [facility] Stop: 08/22/23 15:59 Last Admin: 07/27/23 09:03 Dose: 50 ml (3) Aspiration pneumonia Aspiration pneumonia type: unspecified Laterality: bilateral Lung location: lower lobe of lung Qualified Code(s): J69.0 - Pneumonitis due to inhalation of food and vomit
[2023-07-27] MEDS: metroNIDAZOLE 500 MG TAB PO SCH (15:18)
--- NOTE | 2023-07-28 07:43 | Discharge Summary ---
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 is at bedside who also helps elicit history. reports over the last few days she overall did not feel well. She has been complaining of left breast discomfort a few days ago. noticed last night she was becoming more confused and this morning was significantly weak to the point she was unable to get out of bed. He summoned EMS. There has been no known sick contacts. She also has been complaining of neck pain. At baseline due to prior history of lung cancer she does have difficulty with speech. There is no reported fever at home. She has been experiencing a cough and has been has noticed, "rattles." She takes nothing by mouth since history of tongue cancer. Medications are utilized via PEG tube as well as she receives nutrition via PEG tube. In ED patient met criteria for severe sepsis. She was hypotensive, tachycardic and hypoxic requiring supplemental oxygen via nasal cannula. She received the appropriate fluid resuscitation with 30ml/kG with improvement in her blood pressures. Her initial lactic acid was 6.4, troponin 129.5 and VBG revealed a respiratory acidosis. She received broad-spectrum IV antibiotics with cefepime and Flagyl. Admission Exam Per Admitting Provider GENERAL APPEARANCE: AxOx2-3, ill appearing woman, lethargic HEENT: NC, AT. dry mucous membranes. EOMI, restricted movement of mandible NECK: Supple without lymphadenopathy. No stiffness or restricted ROM. HEART: Normal rate and regular rhythm, difficult to appreciate 2/2 rhonchi LUNGS: notable rhonchi on exam ABDOMEN: Soft, nontender, nondistended with good bowel sounds heard. BACK: No CVAT, no obvious deformity. EXTREMITIES: Without cyanosis, clubbing or edema. NEUROLOGICAL: Grossly nonfocal. Alert and oriented, moving all 4 extremities. CN not formally tested but appear grossly intact. Skin: Warm and dry without any rash. Principal Diagnosis Severe sepsis secondary to aspiration pneumonia, acute respiratory failure, history of squamous cell carcinoma of tongue with status post PEG tube feeding Discharge Exam Sitting on a chair without any acute distress Constitutional + well hydrated; no acute distress Eyes PERRL, conjunctivae normal, anicteric sclerae ENMT external ear and nose normal, oropharynx normal Neck trachea midline, no thyromegaly Respiratory normal respiratory effort; no respiratory distress Cardiovascular Rate/Rhythm: regular rate and regular rhythm Gastrointestinal (Abdomen) normal bowel sounds, soft, nontender, no hepatosplenomegaly Neurologic normal touch/pain/proprioception and moves all extremities; no focal motor deficits Lymphatic no cervical or axillary lymphadenopathy Discharge Data Allergies Allergy/AdvReac Type Severity Reaction Status Date / Time Penicillins Allergy Mild Verified 09/21/21 13:54 Consultations 07/18/23 13:22 ED Decision to Admit Stat 07/19/23 19:23 Consult Cardiology Routine 07/23/23 08:24 Consult Pulmonology Routine Ordered Studies 07/18/23 12:28 CT abd pelvis IV con only Stat CT angio chest PE protocol Stat CT head/brain wo con Stat Hospital Course (1) Severe sepsis: (2) Acute hypoxic respiratory failure: (3) Aspiration pneumonia: (4) Acute mastitis of left breast: (5) Lactic acidosis: (6) Elevated troponin: (7) Metabolic encephalopathy: (8) Respiratory acidosis: Plan 78 yr old F who has significant past medical history of left breast CA status post partial mastectomy in 2004, 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 She is being managed for the following: Severe sepsis POA Acute hypoxic respiratory failure Metabolic encephalopathy Respiratory acidosis Aspiration pneumonia Admitted Chest CT noted multifocal airspace opacities compatible with pneumonia Blood cultures are pending - [id number], urine negative for infection Got IVF bolus for sepsis in ER Continue broad-spectrum IV antibiotics with cefepime 07/17 and Flagyl 07/17 Pulmonary toilet with hypertonic saline, flutter valve, incentive spirometry Lactic acid was 6.3 on presentation, trended down to 1.2 Follow up infectious workup - no Cx growth so far 07/22 CXR w/ worsening pna, Pulm consult. Appreciate pulmonary consult and recommendation-Will finish the course of antibiotic Clinically much improved with improvement of weakness and tiredness Denies any respiratory symptoms Has been ambulating without much difficulties She is back to her baseline and will be discharged home this afternoon Hx of SCC of tongue S/p PEG tube NPO Nutrition on board Continue tube feeding regimen No problem with the tube feeding and has been tolerating well Fluid overload CXR also indicating some fluid overload, Lasix as needed and free water flushes decreased between tube feeds. Wean down oxygen as tolerated. Will give 20 of Lasix IV today with IV phosphate replacement Clinically much better without any shortness of breath at rest and has been saturating normally on room air Has been saturating normally on room air does not have any symptoms of shortness of breath or chest pain L breast mastitis Hx of L breast Ca Continue IV antibiotics as above Had an episode in March as well Needs outpatient mammogram Erythema has resolved. New Onset AFlutter/fib with RVR: Noted 07/18 evening, in setting of sepsis. TSH wnl. Currently sinus rhythm. Cardiology evaluated. Started on metoprolol then changed to Coreg for hypertension management as well. Heart rate under control. Was started on heparin drip, transitioned to Eliquis 2.5 mg twice daily from 07/22 evening. Patient and her agreeable to the cost of Eliquis [$15 a m ont per CM]. c/w eliquis, monitor hnh. Elevated troponin Patient without chest pain Trop flat Likely demand ischemia Last echocardiogram 12/2022 revealed a preserved EF with mild MR/TR Blood pressure remains on the lower side Denies any symptoms with ambulation We will adjust the blood pressure medications Possible APD: c/w PPI daily. Hypothyroidism Chronic, stable Continue levothyroxine Constipation CT a/p reveals Large amount well-formed stool seen within the distal sigmoid colon/rectum. Continue bowel regimen, moving BM ok currently per pt. DVT prophylaxis: eliquis. DNR/DNI Dispo: PCU. PT/OT, CM to assist with DC pLan. Discussed with the and the patient and answered all of their questions Total Time Total Time Spent Total Time Spent (In Minutes): 40 minutes Discharge Plan Discharge Items Patient Disposition: Home - Home Health Services Reason For Visit: SEVERE SEPSIS Discharge Diagnosis: Severe sepsis secondary to aspiration pneumonia, acute respiratory failure, history of squamous cell carcinoma of tongue with status post PEG tube feeding Condition on Discharge: Fair Activity: Resume your previous activity Non-emergency contact: Primary Care Provider Call non-emergency contact if: you have any medication questions and your symptoms worsen Follow-up/Referrals: Foster Zuniga MD [Primary Care Provider] - (Date & Time 08/01/2023 12:20 PM Provider Foster Zuniga MD Department [facility] ) Diet: Other - See Diet Comment Diet Comment: Continue PEG tube feeding as before Addtl Attending Provider Instructions: Please take precautions to avoid falls Finish the course of antibiotic Take your medications as advised Do not take any aspirin and/or NSAIDs Please have follow-up appointments with the healthcare providers Pending Studies at Discharge: No Stand-Alone Forms: My [facility], Smoking Cessation Medications and DC Order Prescriptions: New Eliquis 2.5 mg tablet 2.5 mg PO BID Qty: 60 0RF carvedilol 6.25 mg Tablet 6.25 mg PEG BIDM Qty: 60 0RF magnesium hydroxide [Milk of Magnesia] 400 mg/5 mL Suspension 30 ml PO Q12H PRN (Reason: constipation) Qty: 355 0RF lansoprazole [Prevacid SoluTab] 30 mg Tablet,Disintegrat, Delay Rel 30 mg PEG QAM Qty: 30 0RF metronidazole 500 mg/5 mL suspension 500 mg feeding tube TID 2 Days Qty: 30 0RF Rx Instructions: For 2 days only cefdinir 250 mg/5 mL suspension for reconstitution 300 mg feeding tube BID 2 Days Qty: 24 0RF Continued acetaminophen [Children's Acetaminophen] 160 mg/5 mL Liquid 640 mg PO QID PRN (Reason: Pain) nutritional supplement-fiber Liquid 2 ea feeding tube TID Rx Instructions: 2 cans via feeding tube TID levothyroxine 100 mcg tablet 100 mcg feeding tube DAILY Discharge Orders: Discharge Order (Routine); Ordered 07/27/23 Ordered By: Rosita Paris/Other Patient Handouts: A1C, Apixaban Oral Tablet, Treating Pneumonia Admission Data Admit Date/Time: 07/18/23 13:24 Attending Provider: Rosita Esquivel Admit Provider: Lisandra Pena Primary Care Provider: Foster Zuniga Other Providers: Lisandra Pena; Angela Tna; Radha Brooks; Reagan Hu [facility] Other Interventions: Discharge Summary Assessment (RN) Last Done: 07/27/23 13:00
== END 2023-07-27 16:00 | disposition home health service (06) | DRG 871 ==
LOC: ED 11:09 → 2S 13:24 → SUATTDRO 13:24 → 2S 14:59

== ENCOUNTER 2024-01-15 22:32 | Inpatient (IN) ==
[2024-01-15 23:09] LABS: iSTAT Creatinine 0.7 mg/dl (0.6-1.3); iSTAT Hemoglobin 13.3 g/dl (12.0-16.0); iSTAT Ionized Calcium 1.13 mmol/l (1.12-1.32); iSTAT Potassium 3.6 mmol/L (3.3-5.0)
--- NOTE | 2024-01-15 23:10 | Emergency Department Note ---
Impression & Plan Acute hypoxic respiratory failure, Pneumonia ED Provider Note NAME: LAKESHA WYNNE AGE: 78 SEX: F : 1945 ARRIVES VIA: Ambulance INFORMANT: Patient ED PROVIDER(S): Willian Isaac DO CHIEF COMPLAINT: Shortness of breath HPI: Patient is a 78-year-old female with a past medical history of multifocal pneumonia, a flutter on Eliquis, hypoxic respiratory failure, who presents to the ER for cough, congestion, and shortness of breath this started in the past 24 hours associated with chest pain on the right side. She denies any headache or change in vision. No belly pain, nausea, vomiting or diarrhea. No dysuria, urgency or frequency. She is a DNR/DNI. ADDITIONAL HISTORY OBTAINED: Per HPI Chronic Medical/Social Conditions Affecting Care: Per HPI PAST MEDICAL HISTORY:See Below PAST SURGICAL HISTORY:See Below FAMILY HISTORY:See Below SOCIAL HISTORY:See Below HOME MEDICATIONS:See Below ALLERGIES:See Below VITALS:See Below PHYSICAL EXAMINATION: GENERAL: Sitting up in bed, alert, ill-appearing, disheveled on nonrebreather EYE EXAM: normal conjunctiva. PERRL and EOM's grossly intact. OROPHARYNX: no exudate, no erythema, lips, buccal mucosa, and tongue normal and mucous membranes are moist NECK: supple, no nuchal rigidity, no adenopathy, non-tender LUNGS: Clear to auscultation. Normal chest wall mechanics HEART: no murmurs, S1 normal and S2 normal ABDOMEN: abdomen soft, non-tender, normo-active bowel sounds, no masses, no rebound or guarding. UPPER EXTREMITIES: upper extremities are grossly normal. LOWER EXTREMITIES: No pitting edema. NEURO EXAM: Normal sensorium, cranial nerves II-XII grossly intact, normal speech, no gross weakness of arms, no gross weakness of legs. MEDICAL DECISION MAKING: Patient is a 78-year-old female who presents ER for shortness of breath. Upon arrival to the ER she is found to be hypoxic and was placed on a nonrebreather and then transition to BiPAP. IVs were established medicos obtained. Labs show no significant leukocytosis or anemia. VBG was fairly unremarkable with pH of 7.39. BMP with slightly elevated glucose at 170. Lactic acid 2.3. LFTs was unremarkable. Troponin mildly elevated at 30. Blood cultures were obtained. Patient was given IV cefepime and vancomycin. She is a DNR/DNI per who provides additional history at bedside. Consults/Care Managements Discussions: Per MDM Triage Nursing notes reviewed. Limited review of prior medical records performed Vital Signs: reviewed and remarkable for no significant abnormalities Differential diagnosis: Differential diagnoses includes but is not limited to pneumonia, bronchitis, COPD/Asthma exacerbation, pneumothorax, pulmonary embolism, congestive heart failure, acute coronary syndrome ER treatment provided: See below Diagnostics interpreted by me include EKG and cardiac monitoring as listed below: -Cardiac Monitoring: An order was placed for continuous cardiac monitoring. The monitor shows a rate of 77 with sinus rhythm. -ECG: Sinus rhythm rate of 74 Left axis No PVCs QTc 486 -Laboratory studies:Interpreted by me as stated above in MDM and shown below. Imaging studies: Xrays: As interpreted by me: Portable AP upright 1 view of the chest shows right lower lobe infiltrate CTs show: None Procedures: None Critical Care: I have personally spent 35 minutes of critical care time in the direct management of this patient. This includes bedside care, interpretation of diagnostic studies, and testing, discussion with consultants, patient, and family members, and other required patient management activities. This 35 minutes is in excess of all separately billable procedures. Past Med/Surg History Problem List (Updated 01/15/24 @ 23:51 by Willian Isaac DO) Pneumonia (Acute) Acute hypoxic respiratory failure (Acute) Multifocal pneumonia Atrial flutter Abnormal EKG Acute hypoxic respiratory failure Respiratory acidosis Metabolic encephalopathy Lactic acidosis Acute mastitis of left breast Severe sepsis Elevated troponin (Acute) Hypotension (Acute) Elevated lactic acid level (Acute) Aspiration pneumonia (Acute) Sepsis (Acute) Protein calorie malnutrition Oropharyngeal dysphagia Confusion Lightheadedness (Acute) Nasal congestion (Acute) Acute UTI (urinary tract infection) (Acute) DVT prophylaxis S/P percutaneous endoscopic gastrostomy (PEG) tube placement (Chronic) Influenza A Pneumonia (Acute) 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" Breast cancer (Chronic) "s/p lumpectomy and node dissection in 2004, radiation completed 2005, chemo [id number]" Sarcoidosis (Chronic) "s/p lung biopsy" Dyslipidemia (Chronic) Hypothyroidism (Chronic) Osteoporosis (Chronic) GERD (gastroesophageal reflux disease) (Chronic) 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 follows with [place] [facility]" Medical History Protein calorie malnutrition Oropharyngeal dysphagia Recurrent cellulitis 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 follows with [place] [facility]" GERD (gastroesophageal reflux disease) Osteoporosis Hypothyroidism Dyslipidemia Sarcoidosis "s/p lung biopsy" Breast cancer "s/p lumpectomy and node dissection in 2004, radiation completed 2005, chemo [id number]" Tongue cancer "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" Surgical History S/P percutaneous endoscopic gastrostomy (PEG) tube placement H/O exploratory thoracotomy H/O partial mastectomy H/O endoscopy "with stricture, s/p dilation" Family History Mother Colon cancer Social History Smoking Status: Never smoker Hx Alcohol Use: No Hx Substance Use: No Preferred Language: Vietnamese Communication Ability: Effective 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: No Beliefs That Will Affect Care: None marital status: Current Living Situation: Spouse Feels Safe at Home: Yes Assistive Devices: None Allergies Allergies Allergy/AdvReac Type Severity Reaction Status Date / Time Penicillins Allergy Mild Verified 09/21/21 13:54 Home Meds Home Medications Medication Instructions Recorded Confirmed acetaminophen 160 mg/5 mL oral 640 mg feeding tube QID PRN Pain 09/21/21 01/16/24 liquid (Children's Acetaminophen) nutritional supplement-fiber oral 2 ea feeding tube TID 09/21/21 01/16/24 liquid levothyroxine 100 mcg tablet 100 mcg feeding tube DAILY 07/18/23 01/16/24 apixaban 2.5 mg tablet (Eliquis) 2.5 mg feeding tube BID 01/16/24 01/16/24 Previous Rx's Medication Instructions Recorded carvedilol 6.25 mg tablet 6.25 mg PEG BIDM #60 tabs 07/27/23 Results & Data (ED) Vital Signs Vital Signs - 24 hr 01/15/24 22:45 01/15/24 22:50 01/15/24 22:58 Temperature 37.1 C Temperature Source Axillary Pulse Rate 73 Pulse Rate [Apical] Respiratory Rate 22 Respiratory Effort / Characteristics Non-Labored Spontaneous Respiratory Depth Normal Respiratory Pattern Regular Blood Pressure 138/72 Blood Pressure [Right Arm] Blood Pressure Mean 94 Blood Pressure Mean [Right Arm] Pulse Oximetry 82 L 82 L 92 Oxygen Delivery Method Room Air Nasal Cannula Oxymask Non-rebreather Oxygen Flow Rate 0 6 13 Fraction of Inspired Oxygen SaO2/FiO2 Ratio Sepsis Recent Fever Within 48 Hours No Sepsis New/Unexplained Change in Mental Status Yes Sepsis Action Taken by Nursing Physician Notified Oxygen Flow Rate - Titration 6 15 Pulse Oximetry Post Tiitration 84 L 82 L 01/15/24 23:00 01/15/24 23:14 01/15/24 23:20 Temperature Temperature Source Pulse Rate 71 Pulse Rate [Apical] 70 Respiratory Rate 22 22 Respiratory Effort / Characteristics Respiratory Depth Respiratory Pattern Blood Pressure Blood Pressure [Right Arm] 129/67 Blood Pressure Mean Blood Pressure Mean [Right Arm] 87 Pulse Oximetry 82 L 90 88 L Oxygen Delivery Method Oxymask Non-rebreather Non-rebreather Non-rebreather Oxygen Flow Rate 15 15 Fraction of Inspired Oxygen SaO2/FiO2 Ratio Sepsis Recent Fever Within 48 Hours Sepsis New/Unexplained Change in Mental Status Sepsis Action Taken by Nursing Oxygen Flow Rate - Titration 15 Pulse Oximetry Post Tiitration 88 L 01/15/24 23:24 01/15/24 23:36 01/16/24 01:01 Temperature Temperature Source Pulse Rate 72 70 Pulse Rate [Apical] 68 Respiratory Rate 26 H 20 Respiratory Effort / Characteristics Non-Labored Spontaneous Respiratory Depth Normal Respiratory Pattern Tachypnea Blood Pressure Blood Pressure [Right Arm] 118/74 Blood Pressure Mean Blood Pressure Mean [Right Arm] 88 Pulse Oximetry 89 L 98 Oxygen Delivery Method BiPAP Oxygen Flow Rate Fraction of Inspired Oxygen 100 100 SaO2/FiO2 Ratio 98 Sepsis Recent Fever Within 48 Hours Sepsis New/Unexplained Change in Mental Status Sepsis Action Taken by Nursing Oxygen Flow Rate - Titration Pulse Oximetry Post Tiitration Laboratory Data 01/15/24 22:50 01/15/24 22:50 Lab Results 01/15/24 01/15/24 01/15/24 Range/Units 22:50 22:58 23:19 WBC 9.22 (4.8-10.8) K/ul RBC 4.20 (4.20-5.40) M/uL Hgb 12.9 (12.0-16.0) g/dl POC Hgb 13.3 (12.0-16.0) g/dl Hct 38.8 (37.0-47.0) % POC Hct 39 (37-47) % MCV 92.4 (80.0-100.0) fL MCH 30.7 (25.0-34.0) pg MCHC 33.2 (32.0-36.0) g/dL RDW Std Deviation 52.0 H (36.4-46.3) fL RDW Coeff of Elliot 15.3 H (11.5-14.5) % Plt Count 122 L (130-400) K/uL MPV 13.0 H (9.4-12.4) fL Immature Gran % (Auto) 0.3 % Neut % (Auto) 89.5 % Lymph % (Auto) 5.3 % Page % (Auto) 4.8 % Eos % (Auto) 0.0 % Baso % (Auto) 0.1 % Neut # (Auto) 8.25 H (1.40-6.50) K/uL Lymph # (Auto) 0.49 L (1.20-3.40) K/uL Page # (Auto) 0.44 (0.11-0.59) K/uL Eos # (Auto) 0.00 (0.00-0.50) K/uL Baso # (Auto) 0.01 (0.00-0.20) K/uL Immature Gran # (Auto) 0.03 (0.01-0.20) K/uL VBG pH 7.39 (7.36-7.41) VBG pCO2 47 (38-50) mmHg VBG pO2 31 mmHg VBG HCO3 29 mmol/L VBG O2 Saturation < 60.0 % VBG Base Excess 2.8 mEq/L POC Sodium 144 (135-144) mmol/L Sodium 142 (136-145) mmol/L POC Potassium 3.6 (3.3-5.0) mmol/L Potassium 3.7 (3.5-5.1) mmol/L POC Chloride 106 (101-112) mmol/L Chloride 105 (98-107) mmol/L Carbon Dioxide 27 (21-32) mmol/L POC Total CO2 26 (24-31) mmol/L Anion Gap 10 (3-11) POC Anion Gap 16.0 (16-25) mmol/L POC BUN 28 H (7-18) mg/dl BUN 31 H (6-23) mg/dl Creatinine 0.84 (0.6-1.2) mg/dl POC Creatinine 0.7 (0.6-1.3) mg/dl Est Cr Clr Drug Dosing 43.6 ml/min Est GFR ( Amer) 76.6 ml/min Est GFR (Non-Af Amer) 66.1 ml/min BUN/Creatinine Ratio 36.9 H (10-20) Glucose 170 H (70-99(Fasting)) mg/dl POC Glucose (other) 170 H (70-99) mg/dl Lactate 2.3 H* (0.4-2.0) mmol/L Calcium 9.4 (8.6-10.3) mg/dl POC Ioniz Calcium Maryan 1.13 (1.12-1.32) mmol/l Total Bilirubin 1.9 H (0.2-1.0) mg/dl AST 31 (13-39) U/L ALT 19 (7-52) U/L Alkaline Phosphatase 71 (34-104) U/L Troponin I High Sens 30.8 H (0-14) pg/ml Total Protein 7.6 (6.0-8.3) gm/dl Albumin 4.1 (3.4-5.0) gm/dl Globulin 3.5 (2.5-4.0) gm/dl Albumin/Globulin Ratio 1.2 (0.9-2) Lipase 6 L (11-82) U/L Procalcitonin 6.85 H (0-0.5) ng/ml Adenovirus (PCR) (NotDetected) B. pertussis DNA (PCR) (NotDetected) B.parapertussis DNA PCR (NotDetected) C. pneumoniae DNA (PCR) (NotDetected) Coronavirus OC43 (PCR) (NotDetected) Coronavirus HKU1 (PCR) (NotDetected) Coronavirus 229E (PCR) (NotDetected) SARS-CoV-2 (PCR) (NotDetected) Coronavirus NL63 (PCR) (NotDetected) Human Metapneumovir PCR (NotDetected) Influenza Type A (PCR) (NotDetected) Influenza Type B (PCR) (NotDetected) M. pneumoniae (PCR) (NotDetected) Parainfluenza 1 (PCR) (NotDetected) Parainfluenza 2 (PCR) (NotDetected) Parainfluenza 3 (PCR) (NotDetected) Parainfluenza 4 (PCR) (NotDetected) RSV (PCR) (NotDetected) Entero/Rhino (PCR) (NotDetected) 01/16/24 01/16/24 01/16/24 Range/Units 00:21 00:41 01:00 WBC (4.8-10.8) K/ul RBC (4.20-5.40) M/uL Hgb (12.0-16.0) g/dl POC Hgb (12.0-16.0) g/dl Hct (37.0-47.0) % POC Hct (37-47) % MCV (80.0-100.0) fL MCH (25.0-34.0) pg MCHC (32.0-36.0) g/dL RDW Std Deviation (36.4-46.3) fL RDW Coeff of Elliot (11.5-14.5) % Plt Count (130-400) K/uL MPV (9.4-12.4) fL Immature Gran % (Auto) % Neut % (Auto) % Lymph % (Auto) % Page % (Auto) % Eos % (Auto) % Baso % (Auto) % Neut # (Auto) (1.40-6.50) K/uL Lymph # (Auto) (1.20-3.40) K/uL Page # (Auto) (0.11-0.59) K/uL Eos # (Auto) (0.00-0.50) K/uL Baso # (Auto) (0.00-0.20) K/uL Immature Gran # (Auto) (0.01-0.20) K/uL VBG pH (7.36-7.41) VBG pCO2 (38-50) mmHg VBG pO2 mmHg VBG HCO3 mmol/L VBG O2 Saturation % VBG Base Excess mEq/L POC Sodium (135-144) mmol/L Sodium (136-145) mmol/L POC Potassium (3.3-5.0) mmol/L Potassium (3.5-5.1) mmol/L POC Chloride (101-112) mmol/L Chloride (98-107) mmol/L Carbon Dioxide (21-32) mmol/L POC Total CO2 (24-31) mmol/L Anion Gap (3-11) POC Anion Gap (16-25) mmol/L POC BUN (7-18) mg/dl BUN (6-23) mg/dl Creatinine (0.6-1.2) mg/dl POC Creatinine (0.6-1.3) mg/dl Est Cr Clr Drug Dosing ml/min Est GFR ( Amer) ml/min Est GFR (Non-Af Amer) ml/min BUN/Creatinine Ratio (10-20) Glucose (70-99(Fasting)) mg/dl POC Glucose (other) (70-99) mg/dl Lactate 2.2 H* (0.4-2.0) mmol/L Calcium (8.6-10.3) mg/dl POC Ioniz Calcium Maryan (1.12-1.32) mmol/l Total Bilirubin (0.2-1.0) mg/dl AST (13-39) U/L ALT (7-52) U/L Alkaline Phosphatase (34-104) U/L Troponin I High Sens 31.1 H (0-14) pg/ml Total Protein (6.0-8.3) gm/dl Albumin (3.4-5.0) gm/dl Globulin (2.5-4.0) gm/dl Albumin/Globulin Ratio (0.9-2) Lipase (11-82) U/L Procalcitonin (0-0.5) ng/ml Adenovirus (PCR) Not Detected (NotDetected) B. pertussis DNA (PCR) Not Detected (NotDetected) B.parapertussis DNA PCR Not Detected (NotDetected) C. pneumoniae DNA (PCR) Not Detected (NotDetected) Coronavirus OC43 (PCR) Not Detected (NotDetected) Coronavirus HKU1 (PCR) Not Detected (NotDetected) Coronavirus 229E (PCR) Not Detected (NotDetected) SARS-CoV-2 (PCR) Not Detected (NotDetected) Coronavirus NL63 (PCR) Not Detected (NotDetected) Human Metapneumovir PCR Not Detected (NotDetected) Influenza Type A (PCR) Not Detected (NotDetected) Influenza Type B (PCR) Not Detected (NotDetected) M. pneumoniae (PCR) Not Detected (NotDetected) Parainfluenza 1 (PCR) Not Detected (NotDetected) Parainfluenza 2 (PCR) Not Detected (NotDetected) Parainfluenza 3 (PCR) Not Detected (NotDetected) Parainfluenza 4 (PCR) Not Detected (NotDetected) RSV (PCR) Not Detected (NotDetected) Entero/Rhino (PCR) Not Detected (NotDetected) Administered Medications Discontinued Medications Cefepime HCl (Maxipime) 2,000 mg in 20 mls @ 5 mls/min IV NOW STA; Protocol Stop: 01/15/24 23:38 Last Admin: 01/15/24 23:40 Dose: 5 mls/min Documented By: FAUSTO Vancomycin HCl 1,000 mg/ (Sodium Chloride) 520 mls @ 200 mls/hr IV NOW ONE Stop: 01/16/24 02:10 Last Admin: 01/16/24 00:05 Dose: 200 mls/hr Documented By: FAUSTO Discharge Plan Visit Data Chief Complaint: Weakness Stated Complaint: WEAKNESS, ? DARK EMESIS ED Provider: Willian Isaac Discharge Problem: Acute hypoxic respiratory failure, Pneumonia Forms Stand Alone Forms: My [facility] Prescriptions Prescriptions: No Action acetaminophen [Children's Acetaminophen] 160 mg/5 mL Liquid 640 mg feeding tube QID PRN (Reason: Pain) nutritional supplement-fiber Liquid 2 ea feeding tube TID Rx Instructions: 2 cans via feeding tube TID levothyroxine 100 mcg tablet 100 mcg feeding tube DAILY carvedilol 6.25 mg Tablet 6.25 mg PEG BIDM Qty: 60 0RF Eliquis 2.5 mg tablet 2.5 mg feeding tube BID Referrals Referrals: Foster Zuniga MD [Outside Practitioners] - Discharge Problem: Pneumonia Qualifiers: Pneumonia type: due to unspecified organism Laterality: unspecified laterality Lung location: unspecified part of lung Qualified Code(s): J18.9 - Pneumonia, unspecified organism
[2024-01-15 23:16] LABS: Basophils # (auto) 0.01 K/uL (0.00-0.20); Basophils % (auto) 0.1 %; Hematocrit (blood only) 38.8 % (37.0-47.0); Hemoglobin 12.9 g/dl (12.0-16.0); Immature Granulocytes # (auto) 0.03 K/uL (0.01-0.20); Immature Granulocytes % (auto) 0.3 %; Lymphocytes # (auto) 0.49 K/uL (1.20-3.40); Lymphocytes % (auto) 5.3 %; Mean Corpuscular Hemoglobin 30.7 pg (25.0-34.0); Mean Corpuscular Hgb Conc 33.2 g/dL (32.0-36.0); Mean Corpuscular Volume 92.4 fL (80.0-100.0); Monocytes # (auto) 0.44 K/uL (0.11-0.59); Monocytes % (auto) 4.8 %; Neutrophils # (auto) 8.25 K/uL (1.40-6.50); Neutrophils % (auto) 89.5 %; Platelet Count 122 K/uL (130-400); RDW Coefficient of Variation 15.3 % (11.5-14.5); White Blood Count 9.22 K/ul (4.8-10.8)
[2024-01-15 23:23] LABS: Albumin Globulin Ratio 1.2 (0.9-2); Albumin Level 4.1 gm/dl (3.4-5.0); BUN Creatinine Ratio 36.9 (10-20); Bilirubin,Total 1.9 mg/dl (0.2-1.0); Calcium 9.4 mg/dl (8.6-10.3); Creatinine Clr Calc Pharmacy 43.6 ml/min; Est GFR (African American) 76.6 ml/min; Est GFR (Non-African American) 66.1 ml/min; Globulin 3.5 gm/dl (2.5-4.0); Potassium 3.7 mmol/L (3.5-5.1); Total Protein 7.6 gm/dl (6.0-8.3)
[2024-01-15 23:30] LABS: Troponin I High Sensitivity 30.8 pg/ml (0-14)
[2024-01-15 23:31] LABS: Base Excess VBG 2.8 mEq/L; HCO3 VBG 29 mmol/L; Oxygen Saturation VBG < 60.0 %; PCO2 VBG 47 mmHg (38-50); PO2 VBG 31 mmHg; pH VBG 7.39 (7.36-7.41)
[2024-01-15] MEDS ORDERED: VANCOMYCIN CONSULT ACTIVE PRN (23:35)
[2024-01-15] MEDS: CEFEPIME 2,000 MG/20 ML VIAL IV STA (23:40)
[2024-01-16] MEDS: VANCOMYCIN HCL 1,000 MG in SODIUM CHLORIDE 0.9% 500 ML IV ONE (00:05)
[2024-01-16 01:26] LABS: Adenovirus PCR Not Detected (NotDetected); Bordetella parapertussis PCR Not Detected (NotDetected); Bordetella pertussis PCR Not Detected (NotDetected); Chlamydia pneumoniae PCR Not Detected (NotDetected); Coronavirus 229E PCR Not Detected (NotDetected); Coronavirus CoV-2 (COVID19)PCR Not Detected (NotDetected); Coronavirus HKU1 PCR Not Detected (NotDetected); Coronavirus NL63 PCR Not Detected (NotDetected); Coronavirus OC43PCR Not Detected (NotDetected); Human Metapneumovirus PCR Not Detected (NotDetected); Influenza A PCR Not Detected (NotDetected); Influenza B PCR Not Detected (NotDetected); Mycoplasma pneumoniae PCR Not Detected (NotDetected); Parainfluenza Virus 1 PCR Not Detected (NotDetected); Parainfluenza Virus 2 PCR Not Detected (NotDetected); Parainfluenza Virus 3 PCR Not Detected (NotDetected); Parainfluenza Virus 4 PCR Not Detected (NotDetected); Respiratory Syncytial VirusPCR Not Detected (NotDetected); Rhinovirus/Enterovirus PCR Not Detected (NotDetected)
[2024-01-16] MEDS ORDERED: NITROGLYCERIN SL 0.4 MG/TAB TAB SL PRN (04:12)
--- NOTE | 2024-01-16 04:15 | History & Physical Report ---
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 She is a currently requiring BiPAP in the ER. in the room. states her shortness of breath started today. Has some cough. Has weakness. No fevers. Patient denies any headache. Denies chest pain. Denies nausea. Denies abdominal pain. Patient gets all nutrition from PEG tube. Ambulates without support at home as per . states patient had tongue cancer and when she talks it somewhat difficult to understand her. Currently saturating okay on BiPAP and hemodynamics are okay.Answering by nodding her head. helped with H&P. Acute hypoxic respiratory failure Possible multifocal pneumonia Follow CT chest Empiric Vanco and Invanz Currently requiring BiPAP Gentle fluids Nebs as needed Close monitor Pulmonary consult in a.m. History of squamous cell carcinoma of tongue S/p radiation N.p.o. S/p PEG tube Nutrition and meds via PEG tube History of left breast cancer Status post partial mastectomy A-fib On Coreg and Eliquis Hypothyroidism On Synthyroid DVT prophylaxis On Eliquis CODE STATUS DNR/DNI as per my discussion patient and . 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 She is a currently requiring BiPAP in the ER. in the room. states her shortness of breath started today. Has some cough. Has weakness. No fevers. Patient denies any headache. Denies chest pain. Denies nausea. Denies abdominal pain. Patient gets all nutrition from PEG tube. Ambulates without support at home as per . states patient had tongue cancer and when she talks it somewhat difficult to understand her. Currently saturating okay on BiPAP and hemodynamics are okay.Answering by nodding her head. helped with H&P Past medical history. As mentioned above. Past surgical history. PEG tube placement EGD. Endoscopy with Dr. Parekh despite dilatation. Left partial mastectomy. Thoracotomy with biopsy. Social history. . No smoking. No alcohol use. No drug use. Family history. Mother had colon cancer. Thyroid disorder. Father had diabetes. Heart disorder. Hypertension. Stroke. Allergies Allergy/AdvReac Type Severity Reaction Status Date / Time Penicillins Allergy Mild Verified 09/21/21 13:54 Home Medications Medication Instructions Recorded Confirmed Type acetaminophen 160 mg/5 mL oral 640 mg feeding tube QID PRN Pain 09/21/21 01/16/24 History liquid (Children's Acetaminophen) nutritional supplement-fiber oral 2 ea feeding tube TID 09/21/21 01/16/24 History liquid levothyroxine 100 mcg tablet 100 mcg feeding tube DAILY 07/18/23 01/16/24 History carvedilol 6.25 mg tablet 6.25 mg PEG BIDM #60 tabs 07/27/23 01/16/24 Rx apixaban 2.5 mg tablet (Eliquis) 2.5 mg feeding tube BID 01/16/24 01/16/24 History Past Med/Surg History Problem List (Updated 01/15/24 @ 23:51 by Willian Isaac DO) Pneumonia (Acute) Acute hypoxic respiratory failure (Acute) Multifocal pneumonia Atrial flutter Abnormal EKG Acute hypoxic respiratory failure Respiratory acidosis Metabolic encephalopathy Lactic acidosis Acute mastitis of left breast Severe sepsis Elevated troponin (Acute) Hypotension (Acute) Elevated lactic acid level (Acute) Aspiration pneumonia (Acute) Sepsis (Acute) Protein calorie malnutrition Oropharyngeal dysphagia Confusion Lightheadedness (Acute) Nasal congestion (Acute) Acute UTI (urinary tract infection) (Acute) DVT prophylaxis S/P percutaneous endoscopic gastrostomy (PEG) tube placement (Chronic) Influenza A Pneumonia (Acute) 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" Breast cancer (Chronic) "s/p lumpectomy and node dissection in 2004, radiation completed 2005, chemo [id number]" Sarcoidosis (Chronic) "s/p lung biopsy" Dyslipidemia (Chronic) Hypothyroidism (Chronic) Osteoporosis (Chronic) GERD (gastroesophageal reflux disease) (Chronic) 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 follows with [facility]" Medical History Protein calorie malnutrition Oropharyngeal dysphagia Recurrent cellulitis 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 follows with [facility]" GERD (gastroesophageal reflux disease) Osteoporosis Hypothyroidism Dyslipidemia Sarcoidosis "s/p lung biopsy" Breast cancer "s/p lumpectomy and node dissection in 2004, radiation completed 2005, chemo [id number]" Tongue cancer "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" Surgical History S/P percutaneous endoscopic gastrostomy (PEG) tube placement H/O exploratory thoracotomy H/O partial mastectomy H/O endoscopy "with stricture, s/p dilation" Family History Mother Colon cancer Social History Smoking Status: Never smoker Hx Alcohol Use: No Hx Substance Use: No Preferred Language: Swedish Communication Ability: Effective Trimmer Helper Required: No Beliefs That Will Affect Care: None marital status: Current Living Situation: Spouse Feels Safe at Home: Yes Safety Concerns: Feels Safe At This Time Assistive Devices: Denture - Lower Review of Systems Review of Systems: All systems reviewed & are unremarkable except as noted in HPI & below Physical Exam Physical Exam: General- Not in acute distress Head- atraumatic Eyes- PERRL. Neck- supple, no JVD. Lungs- diminished breath sounds bilaterally, no wheezing or crackles. Heart- regular rate and rhythm; no murmur, no gallop. Abdomen- normal bowel sounds, soft, peg tube site no erythema or drainage seen. No distension. Extremities- no pretibial edema, no erythema seen Neuro- alert, oriented PERRL, no facial palsy;moves extremities Results & Data Results & Data Vital Signs (Past 12 Hours) Vital Signs Temp Pulse Pulse Resp BP BP Pulse Ox 01/16/24 03:00 64 18 121/69 95 01/16/24 02:59 68 01/16/24 02:58 77 24 98 01/16/24 01:01 68 20 118/74 98 01/15/24 23:36 70 26 H 89 L 01/15/24 23:24 72 01/15/24 23:20 70 22 129/67 88 L 01/15/24 23:14 71 22 90 01/15/24 23:00 82 L 01/15/24 22:58 37.1 C 73 22 138/72 92 01/15/24 22:50 82 L 01/15/24 22:45 82 L O2 Del Method O2 Flow Rate FiO2 01/16/24 03:00 BiPAP 01/16/24 02:59 01/16/24 02:58 80 01/16/24 01:01 BiPAP 100 01/15/24 23:36 100 01/15/24 23:24 01/15/24 23:20 Non-rebreather 01/15/24 23:14 Non-rebreather 15 01/15/24 23:00 Oxymask, Non-rebreather 15 01/15/24 22:58 Non-rebreather 13 01/15/24 22:50 Nasal Cannula, Oxymask 6 01/15/24 22:45 Room Air 0 Diagnostic Findings Laboratory Results WBC 9.22 K/ul (4.8-10.8) 01/15/24 22:50 RBC 4.20 M/uL (4.20-5.40) 01/15/24 22:50 Hgb 12.9 g/dl (12.0-16.0) 01/15/24 22:50 POC Hgb 13.3 g/dl (12.0-16.0) 01/15/24 22:58 Hct 38.8 % (37.0-47.0) 01/15/24 22:50 POC Hct 39 % (37-47) 01/15/24 22:58 MCV 92.4 fL (80.0-100.0) 01/15/24 22:50 MCH 30.7 pg (25.0-34.0) 01/15/24 22:50 MCHC 33.2 g/dL (32.0-36.0) 01/15/24 22:50 RDW Std Deviation 52.0 fL (36.4-46.3) H 01/15/24 22:50 RDW Coeff of Elliot 15.3 % (11.5-14.5) H 01/15/24 22:50 Plt Count 122 K/uL (130-400) L 01/15/24 22:50 MPV 13.0 fL (9.4-12.4) H 01/15/24 22:50 Immature Gran % (Auto) 0.3 % 01/15/24 22:50 Neut % (Auto) 89.5 % 01/15/24 22:50 Lymph % (Auto) 5.3 % 01/15/24 22:50 Placer % (Auto) 4.8 % 01/15/24 22:50 Eos % (Auto) 0.0 % 01/15/24 22:50 Baso % (Auto) 0.1 % 01/15/24 22:50 Neut # (Auto) 8.25 K/uL (1.40-6.50) H 01/15/24 22:50 Lymph # (Auto) 0.49 K/uL (1.20-3.40) L 01/15/24 22:50 Placer # (Auto) 0.44 K/uL (0.11-0.59) 01/15/24 22:50 Eos # (Auto) 0.00 K/uL (0.00-0.50) 01/15/24 22:50 Baso # (Auto) 0.01 K/uL (0.00-0.20) 01/15/24 22:50 Immature Gran # (Auto) 0.03 K/uL (0.01-0.20) 01/15/24 22:50 VBG pH 7.39 (7.36-7.41) 01/15/24 23:19 VBG pCO2 47 mmHg (38-50) 01/15/24 23:19 VBG pO2 31 mmHg 01/15/24 23:19 VBG HCO3 29 mmol/L 01/15/24 23:19 VBG O2 Saturation < 60.0 % 01/15/24 23:19 VBG Base Excess 2.8 mEq/L 01/15/24 23:19 POC Sodium 144 mmol/L (135-144) 01/15/24 22:58 Sodium 142 mmol/L (136-145) 01/15/24 22:50 POC Potassium 3.6 mmol/L (3.3-5.0) 01/15/24 22:58 Potassium 3.7 mmol/L (3.5-5.1) 01/15/24 22:50 POC Chloride 106 mmol/L (101-112) 01/15/24 22:58 Chloride 105 mmol/L (98-107) 01/15/24 22:50 Carbon Dioxide 27 mmol/L (21-32) 01/15/24 22:50 POC Total CO2 26 mmol/L (24-31) 01/15/24 22:58 Anion Gap 10 (3-11) 01/15/24 22:50 POC Anion Gap 16.0 mmol/L (16-25) 01/15/24 22:58 POC BUN 28 mg/dl (7-18) H 01/15/24 22:58 BUN 31 mg/dl (6-23) H 01/15/24 22:50 Creatinine 0.84 mg/dl (0.6-1.2) 01/15/24 22:50 POC Creatinine 0.7 mg/dl (0.6-1.3) 01/15/24 22:58 Est Cr Clr Drug Dosing 43.6 ml/min 01/15/24 22:50 Est GFR ( Amer) 76.6 ml/min 01/15/24 22:50 Est GFR (Non-Af Amer) 66.1 ml/min 01/15/24 22:50 BUN/Creatinine Ratio 36.9 (10-20) H 01/15/24 22:50 Glucose 170 mg/dl (70-99(Fasting)) H 01/15/24 22:50 POC Glucose (other) 170 mg/dl (70-99) H 01/15/24 22:58 Lactate 2.2 mmol/L (0.4-2.0) H* 01/16/24 01:00 Calcium 9.4 mg/dl (8.6-10.3) 01/15/24 22:50 POC Ioniz Calcium Maryan 1.13 mmol/l (1.12-1.32) 01/15/24 22:58 Total Bilirubin 1.9 mg/dl (0.2-1.0) H 01/15/24 22:50 AST 31 U/L (13-39) 01/15/24 22:50 ALT 19 U/L (7-52) 01/15/24 22:50 Alkaline Phosphatase 71 U/L (34-104) 01/15/24 22:50 Troponin I High Sens 31.1 pg/ml (0-14) H 01/16/24 00:41 Total Protein 7.6 gm/dl (6.0-8.3) 01/15/24 22:50 Albumin 4.1 gm/dl (3.4-5.0) 01/15/24 22:50 Globulin 3.5 gm/dl (2.5-4.0) 01/15/24 22:50 Albumin/Globulin Ratio 1.2 (0.9-2) 01/15/24 22:50 Lipase 6 U/L (11-82) L 01/15/24 22:50 Procalcitonin 6.85 ng/ml (0-0.5) H 01/15/24 22:50 Adenovirus (PCR) Not Detected (NotDetected) 01/16/24 00:21 B. pertussis DNA (PCR) Not Detected (NotDetected) 01/16/24 00:21 B.parapertussis DNA PCR Not Detected (NotDetected) 01/16/24 00:21 C. pneumoniae DNA (PCR) Not Detected (NotDetected) 01/16/24 00:21 Coronavirus OC43 (PCR) Not Detected (NotDetected) 01/16/24 00:21 Coronavirus HKU1 (PCR) Not Detected (NotDetected) 01/16/24 00:21 Coronavirus 229E (PCR) Not Detected (NotDetected) 01/16/24 00:21 SARS-CoV-2 (PCR) Not Detected (NotDetected) 01/16/24 00:21 Coronavirus NL63 (PCR) Not Detected (NotDetected) 01/16/24 00:21 Human Metapneumovir PCR Not Detected (NotDetected) 01/16/24 00:21 Influenza Type A (PCR) Not Detected (NotDetected) 01/16/24 00:21 Influenza Type B (PCR) Not Detected (NotDetected) 01/16/24 00:21 M. pneumoniae (PCR) Not Detected (NotDetected) 01/16/24 00:21 Parainfluenza 1 (PCR) Not Detected (NotDetected) 01/16/24 00:21 Parainfluenza 2 (PCR) Not Detected (NotDetected) 01/16/24 00:21 Parainfluenza 3 (PCR) Not Detected (NotDetected) 01/16/24 00:21 Parainfluenza 4 (PCR) Not Detected (NotDetected) 01/16/24 00:21 RSV (PCR) Not Detected (NotDetected) 01/16/24 00:21 Entero/Rhino (PCR) Not Detected (NotDetected) 01/16/24 00:21 ECG Additional Comments: ECG. Sinus rhythm with sinus arrhythmia with first-degree AV block at rate of 74. Left anterior fascicular block. Moderate voltage criteria for LVH. QTc 486. Code Status & VTE Plan VTE Prophylaxis Plan VTE Prophylaxis will be ordered: Yes
[2024-01-16] MEDS: OPTIRAY 320 125ml IV ONE (05:14)
[2024-01-16] MEDS: SODIUM CHLORIDE 0.9% 1,000 ML IV SCH (05:23)
[2024-01-16] MEDS: ERTAPENEM SODIUM 1,000 MG in SYRINGE 0 ML IV SCH (05:50)
[2024-01-16] MEDS: VANCOMYCIN HCL 1,250 MG in SODIUM CHLORIDE 0.9% 250 ML IV SCH (06:15)
--- NOTE | 2024-01-16 06:49 | CT Scan Report ---
Exam(s): CTA CHEST IV Amt: 118 ML OPTIRAY 320 EXAM: CT Angiography Chest With Intravenous Contrast CLINICAL HISTORY: PE. TECHNIQUE: Axial computed tomographic angiography images of the chest with intravenous contrast. MIPS images were created and reviewed. CTDI is 15. 21 mGy and DLP is 502.42 mGy-cm. Automated exposure control was utilized for the study. A dose lowering technique was utilized adhering to the principles of ALARA. MIP reconstructed images were created and reviewed. COMPARISON: CTA chest 07/18/2023 FINDINGS: Pulmonary arteries: Unremarkable. No pulmonary embolus. Aorta: There is ectasia of the ascending aorta measuring 3.6 cm. Mild atherosclerosis. No thoracic aortic aneurysm. Lungs: Airspace opacities of the right middle and lower lobes is concerning for multifocal pneumonia and/or aspiration. Filling defects of the bronchi of the right lower lobe may represent mucous plugs and/or aspiration. Pleural space: Unremarkable. No significant effusion. No pneumothorax. Heart: Dilated atrium. Coronary artery calcifications are present. No cardiomegaly. No significant pericardial effusion. No evidence of RV dysfunction. Bones/joints: There are degenerative changes of the spine. No acute fracture. No dislocation. Soft tissues: Unremarkable. Lymph nodes: Unremarkable. No enlarged lymph nodes. IMPRESSION: 1. No pulmonary embolus. 2. Filling defects of the bronchi of the right lower lobe may represent mucous plugs and/or aspiration. 3. Airspace opacities of the right middle and lower lobes is concerning for multifocal pneumonia and/or aspiration. 4. 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 Electronically signed by: Norah Arroyo MD 01/16/24 06:48 AM
--- NOTE | 2024-01-16 07:04 | XRay Report ---
XR chest 1V portable CLINICAL HISTORY: Chest pain, nonspecific COMPARISON STUDY: Chest CT July 18, 2023. Chest radiograph July 24, 2023. FINDINGS: No pneumothorax or effusion. Right lower lung consolidation is present. There is no consoli dation within the left lung. Pulmonary vascularity is normal. Cardiomediastinal silhouette is stable. IMPRESSION: Right lower lung consolidation suggestive of pneumonia. Post treatment radiographs to en sure resolution are recommended. ACT 112: Negative or not required by law. Electronically signed by: Eloy Green M.D. 01/16/2024 7:03 AM
[2024-01-16 07:15] LABS: Hematocrit (blood only) 33.3 % (37.0-47.0); Hemoglobin 11.1 g/dl (12.0-16.0); Mean Corpuscular Hemoglobin 30.6 pg (25.0-34.0); Mean Corpuscular Hgb Conc 33.3 g/dL (32.0-36.0); Mean Corpuscular Volume 91.7 fL (80.0-100.0); Platelet Count 101 K/uL (130-400); RDW Coefficient of Variation 15.1 % (11.5-14.5); RDW Standard Deviation 51.1 fL (36.4-46.3); Red Blood Count 3.63 M/uL (4.20-5.40); White Blood Count 7.56 K/ul (4.8-10.8)
[2024-01-16 07:30] LABS: BUN Creatinine Ratio 42.9 (10-20); Calcium 8.4 mg/dl (8.6-10.3); Creatinine Clr Calc Pharmacy 47.6 ml/min; Est GFR (African American) 85.1 ml/min; Est GFR (Non-African American) 73.4 ml/min; Magnesium 1.9 mg/dl (1.7-2.4); Potassium 3.6 mmol/L (3.5-5.1)
[2024-01-16 07:51] LABS: Basophils # (auto) 0.01 K/uL (0.00-0.20); Basophils % (auto) 0.1 %; Immature Granulocytes # (auto) 0.03 K/uL (0.01-0.20); Immature Granulocytes % (auto) 0.4 %; Lymphocytes # (auto) 0.46 K/uL (1.20-3.40); Lymphocytes % (auto) 6.1 %; Monocytes # (auto) 0.39 K/uL (0.11-0.59); Monocytes % (auto) 5.2 %; Neutrophils # (auto) 6.67 K/uL (1.40-6.50); Neutrophils % (auto) 88.2 %
[2024-01-16] MEDS ORDERED: NON-FORMULARY MEDICATION (Nutritional Supplement-Fiber Liquid) feeding tube SCH (09:00)
[2024-01-16] MEDS: LEVOTHYROXINE SODIUM 100 MCG TABLET GT SCH (09:15)
[2024-01-16] MEDS: APIXABAN 2.5 MG TAB PO SCH (09:15)
[2024-01-16] MEDS: carvediloL 6.25 MG TAB PEG SCH (09:15)
--- OUTSIDE RECORDS SUMMARY | 2024-01-16 10:11 | External Medical Summary | Summary of Care ---
Author Name Unknown Organization [facility] Address [address] [place] [address] Phone [phone] Care Team Providers Care Learning Operations Specialist Name Role Phone Aayush Hardwick MD Primary Care Provider Reason for Referral * Evaluate & Treat - Unlimited Visits (Within 10 days (routine)) - Authorized Specialty Diagnoses / Procedures Referred By Obed briones Referred To Contact Otolaryngology Diagnoses Hearing loss of left ear, unspecified hearing loss type Aayush Hardwick MD [address] [place] [address] Referral ID Status Reason Start Date Expiration Date Visits Requested Visits Authorized [id number] Authorized Specialty Services Required 01/08/2024 [id number] Question Answer Referral Priority Within 10 days (routine) Where should this appointment be scheduled? [facility] Reason for Referral Ear Conditions Specific Condition: Hearing Loss Is this sudden hearing loss or post chemotherapy hearing loss? No * Ancillary Services (Within 10 days (routine)) - Authorized Specialty Diagnoses / Procedures Referred By Obed briones Referred To Contact Audiology Diagnoses Hearing loss of left ear, unspecified hearing loss type Aayush Hardwick MD [address] [place] [address] Referral ID Status Reason Start Date Expiration Date Visits Requested Visits Authorized [id number] Authorized Ancillary Services Required 01/08/2024 999 [id number] Question Answer Referral Priority Within 10 days (routine) Where should this appointment be scheduled? [facility] Reason for Referral: Hearing Loss Is this sudden hearing loss or post chemotherapy hearing loss? No Reason for Visit * Reason Onset Date Comments Hearing Problem 01/08/2024 Encounter Details Date Type Department Care Team (Late st Contact Info) Description 01/08/2024 Telephone Family Practice [facility] [address] [place] [address] Aayush Hardwick MD [address] [place] [address] Hearing Problem Allergies Active Allergy Reactions Criticality Noted Date Comments Penicillins 10/25/1999 rash and given shot as a child, has tolerated augmentin ok as well as cephalosporin documented as of this encounter (statuses as of 01/08/2024) Medications Medication Sig Dispensed Refills Start Date End Date Status Acetaminophen Childrens 160 MG/5ML Oral Solution Administer into feeding tube 640 mg 4 times a day as needed for Pain. Active Fibersource HN Oral LiquidIndications:Sev ere protein-calorie malnutrition (HCC) Administer 6 cans daily as directed via G tube via bolus syringe 87023 mL 11 07/11/2023 Active Magic Mouthwash (Iqqyqqdvz-Cdgmruyp-S ystatin) oral solution Swish and spit 15 mL 3 times a day as needed (oral irritation and mucositis). 450 mL 1 11/13/2023 Active Levothyroxine Sodium 100 MCG Oral Tablet (Levoxyl)Indications: Acquired hypothyroidism Take 1 Tablet by mouth in the morning. (at least 30 min prior to breakfast or other meds). 90 Tablet 11/19/2023 Active Apixaban 2.5 MG Oral Tablet (Eliquis)Indications: Need for case management follow-up,Paroxysmal atrial fibrillation (HCC) Administer 1 Tablet into G tube in the morning and 1 Tablet before bedtime. 180 Tablet 3 12/21/2023 Active Carvedilol 6.25 MG Oral Tablet (Coreg)Indications:Ne ed for case management follow-up,Paroxysmal atrial fibrillation (HCC) Administer 1 Tablet into G tube 2 times a day with morning and evening meals. 180 Tablet 3 12/21/2023 Active Hospital, Clinic, or Other Facility Administered Medication Ordered Dose Route Frequency Start Date End Date Status Denosumab (Prolia) subcut inj 60 mgIndications:Senile osteoporosis 60 mg SC [id number] 07/11/2023 07/05/2024 Active documented as of this encounter (statuses as of 01/08/2024) Active Problems Problem Noted Date Diagnosed Date Kyphoscoliosis 11/27/2023 Pleural effusion 08/27/2023 Paroxysmal atrial fibrillation 08/23/2023 Acute mastitis 05/25/2023 OAB (overactive bladder) 05/13/2023 [...] as of this encounter (statuses as of 01/08/2024) Resolved Problems Problem Noted Date Diagnosed Date [...] as of this encounter (statuses as of 01/08/2024) Immunizations Name Administration Dates Next Due COVID-19 mRNA, LNP-s, No Pre serve, 2-Dose Series ([employer]) 03/16/2021,08/12/2020,07/22/2020 Covid-19, Mrna, Lnp-s, Pf, B ivalent, 30 Mcg, IM, 12 yrs and above ([employer]) 02/24/2022 Pneumococcal Conjugate Vacc, 13 Valent (Prevnar) 04/15/2018 Pneumococcal Polysaccharide PPV23 (Pneumovax) 06/25/2018,02/03/2014 Season Influenza, Quad, PF, Adjuvanted, 65+ Yrs, IM (FLUAD) 01/12/2020 Seasonal Influenza, Quadriva lent Hd (Fluzone Hd) 03/12/2023,01/05/2022,02/15/2021 Seasonal Influenza, Trivalen t, (IIV3), with Preserv, (Fluzone) 03/14/2006 Seasonal Influenza, Trivalen t, Adjuvanted, 65+ YRS, PF, (Fluad) 01/17/2019 TDAP (age 10 and older)(Boostrix) 10/24/2022 TDAP, Age 7 and older, IM (Adacel) 03/14/2006 documented as of this encounter Social History Tobacco Use Types Packs/Day Years Used Date Smoking Tobacco: Never Smokeless Tobacco: Never Alcohol Use Standard Drinks/Week Comments No 0 (1 standard drink = 0.6 oz pur e alcohol) PHQ-2 Answer Date Recorded PHQ Adult Total Score 0 09/18/2023 Hunger Vital Sign Answer Date Recorded Within the past 12 months, y ou worried that your food would run out before you got the money to buy more. Never true 11/30/19 24 Within the past 12 months, t he food you bought just didn't last and you didn't have money to get more. Never true 11/30/2023 Childcare Answer Date Recorded Do you feel overwhelmed with taking care of a child, family member or friend? No 11/30/2023 Does your family need help f inding childcare? (Household - for ages 0-17 years) Not on file 11/30/2023 Clothing Answer Date Recorded Have you been unable to get clothing when it was really needed? No 11/30/2023 Is your family able to get c lothes or diapers when needed? (Household - for ages 0-17 years) Not on file 11/30/2023 Personal Safety Answer Date Recorded Do you feel unsafe or have concerns for your saf ety? No 11/30/2023 Do you have concerns for you r family's safety? (Household - for ages 0-17 years) Not on file 11/30/2023 Utilities Answer Date Recorded Do you have trouble paying y our heating, water, or electric bill? No 11/30/2023 Is your family able to pay t he heat, water, or electric bill? (Household - for ages 0-17 years) Not on file 11/30/2023 Does your family have access to good internet? (Household - for ages 0-17 years) Not on file 11/30/2023 Employment Status Answer Date Recorded Are you unemployed or without regular income? No 11/30/2023 Does the household have a re gular source of income? (Household - for ages 0-17 years) Not on file 11/30/2023 Social Connections Answer Date Recorded How often do you feel lonely or isolated from th ose around you? Never 11/30/2023 Financial Resource Strain Answer Date R ecorded Do you have any trouble payi ng for your medications, or do you think you might in the future? No 11/30/2023 Does your family have troubl e paying for medicine? (Household - for ages 0-17 years) Not on file 11/30/2023 Transportation Needs Answer Date Record ed READ ONLY Do you have troubl e getting a ride to medical visits or work? Never True 11/30/2023 Does your family have a hard time getting a ride to doctors visits? (Household - for ages 0-17 years) Not on file 11/30/2023 Has lack of transportation k ept you from medical appointments, meetings, work, or from getting things needed for daily living? Check all that apply. No 11/30/2023 Do you (or your family) have trouble finding or paying for a ride (transportation)? (Household - for ages 0-17 years) Not on file 11/30/2023 Housing Stability Answer Date Recorded Do you currently live in a s helter or have no steady place to sleep at night? No 11/30/2023 READ ONLY Do you think you a re at risk of becoming homeless? No 11/30/2023 Does your family worry about paying for your home or becoming homeless? (Household - for ages 0-17 years) Not on file 0 11/30/2023 Are you homeless or worried that you might be in the future? No 11/30/2023 Are you (or your family) juanpablo eless or worried that you might be in the future? (Household - for ages 0-17 years) Not on file Food Insecurity Answer Date Recorded Do you need food for this week? No 11/30/2023 Are you able to get enough f ood for your family? (Household - for ages 0-17 years) Not on file 11/30/2023 Does your family need food t his week? (Household - for ages 0-17 years) Not on file 11/30/2023 Do you always have enough fo od for your family? (Household - for ages 0-17 years) Not on file 11/30/2023 Sex and Gender Information Value Date Recorded Sex Assigned at Female 09/18/2023 9:14 AM EDT Gender Identity Female 09/18/2023 9:14 AM EDT Sexual Orientation Straight 09/18/2023 9: 14 AM EDT Job Start Date Occupation Industry Not on [...] encounter Miscellaneous Notes * Telephone Encounter - Jessica Muñoz OSA - 01/08/2024 2:08 PM EDT Appt scheduled * Addendum Note - Aayush Hardwick MD - 01/08/2024 2:07 PM EDTAddended by: AAYUSH HARDWICK on: 01/08/2024 02:07 PM Modules accepted: Orders * Telephone Encounter - Aayush Hardwick MD - 01/08/2024 2:07 PM EDT Done * Telephone Encounter - Jessica Muñoz OSA - 01/08/2024 2:[address] Please also place ENT referral * Telephone Encounter - Aayush Hardwick MD - 01/08/2024 1:56 PM EDT Patient here today with her for his appt. She is having trouble hearing out of her left ear. Her ear was examined and there is no significant wax but there is retraction of TM with scarring. Will set up for audiogram with ENT here at . documented in this encounter Plan of Treatment Upcoming Encounters Date Type Department Care Team (Late st Contact Info) Description 01/14/2024 1:30 PM EDT Nurse Only Rheumatology [address] [place] [address] Pf, Nurse Rheum [address] [place] [address] [place] [address] 02/27/2024 2:15 PM EDT Office Visit Urogynecology [facility] [address] [place] [address] Reagan Duckworth MD [address] [place] [address] Nurse Huey Ambrocio [address] [place] [address] 03/12/2024 12:30 PM EST Office Visit Otolaryngology [facility] [address] [place] [address] Tiara Conklin PA-C [address] [place] [address] Kailyn Bah Au.D. [address] [place] [address] 04/02/2024 11:00 AM EST Office Visit Cardiology, [facility] [address] [facility] [place] [address] Allan Siddiqui PA-C [address] [facility] [place] [address] 06/03/2024 11:20 AM EST Office Visit Family Practice [facility] [address] [facility] [place] [address] Aayush Hardwick MD [address] [facility] [place] [id number] 06/09/2024 10:00 AM EST Office Visit Pulmonary Medicine, [facility] [address] [facility] [place] [address] Ger Lu MD [address] [place] [address] 07/09/2024 11:30 AM EDT Office Visit Urology, [facility] [address] Spencer Kumari MD [address] [facility] [place] [address] Scheduled Referrals Name Type Priority Associated Diagnoses Orde r Schedule AUDIOLOGY REFERRAL OP Referral Within 10 days (routine) Hearing loss of left ear, unspecified hearing loss type Ordered: 01/08/2024 ADULT/PEDS OTOLARYNGOLOGY REFERRAL OP Referral Within 10 days (routine) Hearing loss of left ear, unspecified hearing loss type Ordered: 01/08/2024 Health Maintenance Due Date Last Done Comments Adult Wellness Visit 10/11/2021 10/11/2020 Influenza Vaccine (FLU shot) (#1) 2023 03/12/2023, 01/05/2022, 02/15/2021, Additional history exists TSH 12/30/2023 12/29/2022, 10/28, 10/12/2022, Additional history exists Depression Screening 11/29/2024 11/30/2023, 09/18/19 24 DXA Scan 05/21/2025 05/21/2023, 09/30, 01/26/2016, Additional history exists DTap/Tdap Vaccines (3 - Td or Tdap) 10/24/2032 10/24/2022, 03/14/2006 Pneumococcal Vaccine: 65+ Years Completed 06/25/2018, 04/15/2018, 02/03/2014 COVID-19 Vaccine Discontinued 02/24/2022, , 08/12/2020, Additional history exists VITAMIN D LEVEL ONCE IN A LIFETIME-USE SMARTSET# [id number] Completed 06/27/2023, 01/10/2021, 09/25/2008 HPV (Gardasil) Vaccine Aged Out No lo nger eligible based on patient's age to complete this topic Hepatitis B Vaccine Aged Out No longe r eligible based on patient's age to complete this topic MENINGOCOCCAL (MENACTRA/MENVEO) Aged Out No longer eligible based on patient's age to complete this topic Zoster Vaccines Discontinued documented as of this encounter Medical Devices Not on filedocumented as of this encounter Visit Diagnoses Diagnosis Hearing loss of left ear, unspecified hearing loss type- Primary documented in this encounter Advance Directives Healthcare Agents on File Name Relationship Healthcare Agent Relationshi p Communication Cristobal Manuel Spouse Health Care Repr esentative (appointed verbally by patient or by statute hierarchy) Care Teams Learning Operations Specialist Relationship Specialty Start Date End Date Aayush Hardwick MD [address] [place] [address] PCP - General Family Medicine 08/23/23 documented as of this encounter
--- OUTSIDE RECORDS SUMMARY | 2024-01-16 10:11 | External Medical Summary | Summary of Care ---
Author Name Unknown Organization [facility] Address [address] [place] [facility] [place] [address] Phone [phone] Care Team Providers Care Leg Assembler Name Role Phone Aayush Medrano MD Primary Care Provider Reason for Visit * Reason Onset Date Comments Medication Administration prolia Medication Administration 01/14/2024 Prolia Encounter Details Date Type Department Care Team (Late st Contact Info) Description 01/14/2024 1:30 PM EDT Nurse Only Rheumatology [facility] [address] [facility] [place] [address] Pf, Nurse Rheum [address] [facility] [place] [address] Medication Administration (prolia); Medica... Allergies Active Allergy Reactions Criticality Noted Date Comments Penicillins 10/25/1999 rash and given shot as a child, has tolerated augmentin ok as well as cephalosporin documented as of this encounter (statuses as of 01/14/2024) Medications Medication Sig Dispensed Refills Start Date End Date Status Acetaminophen Childrens 160 MG/5ML Oral Solution Administer into feeding tube 640 mg 4 times a day as needed for Pain. Active Fibersource HN Oral LiquidIndications:Sev ere protein-calorie malnutrition (HCC) Administer 6 cans daily as directed via G tube via bolus syringe 99677 mL 11 07/11/2023 Active Magic Mouthwash (Ahjzyljcy-Jgcngsik-X ystatin) oral solution Swish and spit 15 [...] evening meals. 180 Tablet 3 12/21/2023 Active Magic Mouthwash (Cavcjwrmb-Xdueykcg-E ystatin) oral solution Swish and spit 15 mL in the morning and 15 mL before bedtime. 300 mL 2 01/08/2024 Active Hospital, Clinic, or Other Facility Administered Medication Ordered Dose Route Frequency Start Date End Date Status Denosumab (Prolia) subcut inj 60 mgIndications:Senile osteoporosis 60 mg SC [id number] 07/11/2023 07/05/2024 Active Denosumab (Prolia) subcut inj 60 mgIndications:Senile osteoporosis 60 mg SC ONCE 01/14/2024 01/14/2024 Ended documented as of this encounter (statuses as of 01/14/2024) Active Problems Problem Noted Date Diagnosed Date [...] as of this encounter (statuses as of 01/14/2024) Resolved Problems Problem Noted Date Diagnosed Date [...] as of this encounter (statuses as of 01/14/2024) Immunizations Name Administration Dates Next Due COVID-19 [...] Pressure - - Pulse - - Temperature 36.7 C (98 F) 01/14/2024 1:18 PM EDT Respiratory Rate - - Oxygen Saturation - [...] No 02/22/2015 documented as of this encounter Patient Instructions * Patient Instructions* Cb Karlligia Ross, LEE - 01/14/2024 1:19 PM EDT MEDICATION GUIDE Prolia (PA-althea-a) (denosumab) Injection Read the Medication Guide that comes with Prolia before you start taking it and each time you get arefill. There may be new information. This Medication Guide does not take the place of talking withyour doctor about your medical condition or treatment. Talk to your doctor if you have any questions about Prolia. What is the most important information I should know about Prolia? Prolia can cause serious side effects includin. Low calcium levels in your blood (hypocalcemia). Prolia may lower the calcium levels in your blood. If you have low blood calcium before you start receiving Prolia, it may get worse during treatment. Your low blood calcium must be treated before you receive Prolia. Most people with low blood calcium levels do not have symptoms, but some people may have symptoms. Call your doctor right away if you have symptoms of low blood calcium such as: Spasms, twitches, or cramps in your muscles Numbness or tingling in your fingers, toes, or around your mouth Your doctor may prescribe calcium and vitamin D to help prevent low calcium levels in your blood while you take Prolia. Take calcium and vitamin D as your doctor tells you to. 2. Serious infections. Serious infections in your skin, lower stomach area (abdomen), bladder, or ear may happen if you take Prolia. Inflammation of the inner lining of the heart (endocarditis) due to an infection also mayhappen more often in people who take Prolia. You may need to go to the hospital for treatment if you develop an infection. Prolia is a medicine that may affect your immune system. People who have weakened immune system or take medicines that affect the immune system may have an increased risk for developing serious infections. Call your doctor right away if you have any of the following symptoms of infection: Fever or chills Skin that looks red or swollen and is hot or tender to touch Severe abdominal pain Frequent or urgent need to urinate or burning feeling when you urinate 3. Skin problems. Skin problems such as inflammation of your skin (dermatitis), rash, and eczema may happen if you take Prolia. Call your doctor if you have any of the following symptoms of skin problems that do not go away or get worse: Redness Itching Small bumps or patches (rash) Your skin is dry or feels like leather Blisters that ooze or become crusty Skin peeling 4. Severe jaw bone problems (osteonecrosis). Severe jaw bone problems may happen when you take Prolia. Your doctor should examine your mouth before you start Prolia. Your doctor may tell you to see your dentist before you start Prolia. It is important for you to practice good mouth care during treatment with Prolia. Call your doctor right away if you have any of these side effects. What is Prolia? Prolia is a prescription medicine used to treat osteoporosis (thinning and weakening of bone) in women after menopause (change of life) who Have an increased risk for fractures (broken bones). Cannot use another osteoporosis medicine or other osteoporosis medicines did not work well. Who should not receive Prolia? Do not take Prolia if you have been told by your doctor that your blood calcium level is too low. What should I tell my doctor before receiving Prolia? Before taking Prolia, tell your doctor if you: Have low blood calcium. Cannot take daily calcium and vitamin D. Had parathyroid or thyroid surgery (glands located in your neck). Have been told you have trouble absorbing minerals in your stomach or intestines (malabsorptionsyndrome). Have kidney problems or are on kidney dialysis. Plan to have dental surgery or teeth removed. Are or plan to become . Prolia may harm your unborn baby. Tell your doctor right away if you become while taking Prolia. Surveillance Program: Prolia is not intended for use in women. If you become while taking Prolia, talk to your doctor about enrolling with [employer] SurveillanceProgram or call (u-384-78[facility]). The purpose of this program is to collect information about women who have become while taking Prolia. Are breast-feeding or plan to breast-feed. It is not known if Prolia passes into your breast milk. You and your doctor should decide if you will take Prolia or breast-feed. You should not do both. Tell your doctor about all the medicines you take, including prescription and nonprescription drugs, vitamins, and herbal supplements. Know the medicines you take. Keep a list of medicines with you to show to your doctor or pharmacistwhen you get a new medicine. How will I receive Prolia? Prolia is an injection that will be given to you by a healthcare professional. Prolia is injected under your skin (subcutaneous). You will receive Prolia 1 time every 6 months. You should take calcium and vitamin D as your doctor tells you to while you receive Prolia. If you miss a dose of Prolia, you should receive your injection as soon as you can. Take good care of your teeth and gums while you receive Prolia. Williamson and floss your teeth regularly. Tell your dentist that you are receiving Prolia before you have dental work. What are the possible side effects of Prolia? Prolia may cause serious side effects. See What is the most important information I should know about Prolia? Long-term effects on bone: It is not known if the use of Prolia over a long period of time may cause slow healing of broken bones or unusual fractures. The most common side effects of Prolia are: Back pain Pain in your arms and legs High cholesterol Muscle pain Bladder infection These are not all the possible side effects of Prolia. For more information, ask your doctor or pharmacist. Call your doctor for medical advice about side effects. You may report side effects to FDA at 4-301-PZK-1968. How should I handle Prolia if I need to pick it up from a pharmacy? Keep Prolia in a refrigerator at 36F to 46F (2C to 8C) in the original carton. Do not freeze Prolia. When you remove Prolia from the refrigerator, Prolia must be kept at room temperature [up to 77F (25C)] in the original carton and must be used within 14 days. Do not keep Prolia at temperatures above 77F (25C). Warm temperatures will affect how Prolia works. Do not shake Prolia. Keep Prolia in the original carton to protect from light. Keep Prolia and all medicines out of reach of children. General information about Prolia Do not give Prolia to other people even if they have the same symptoms that you have. It may harm them. This Medication Guide summarizes the most important information about Prolia. If you would like more information, talk with your doctor. You can ask your doctor or pharmacist for information about Prolia that is written for health professionals. For more information, go to www.[employer] or call [employer] at . What are the ingredients in Prolia? Active ingredient: denosumab Inactive ingredients: sorbitol, acetate, polysorbate 20 (prefilled syringe only), Water for Injection (ALF), and sodium hydroxide What is osteoporosis? Osteoporosis is a disease in which the bones become thin and weak, increasing the chance of having a broken bone. Osteoporosis usually causes no symptoms until a fracture happens. The most common fractures are in the spine (backbone). They can shorten height, even without causing pain. Over time, the spine can become curved or deformed and the body bent over. Fractures from osteoporosis can also happen in almost any bone in the body, for example: the wrist, rib, or hip. Once you have had a fracture, the chance for more fractures greatly increases. The following risk factors increase your chance of getting fractures from osteoporosis: Past broken bones from osteoporosis Very low bone mineral density (BMD) Frequent falls Limited movement, such as using a wheelchair Medical conditions likely to cause bone loss, such as some kinds of arthritis Taking steroid medicines called glucocorticoids, such as prednisone Other medicines that may cause bone loss, for example: seizure medicines (such as phenytoin), blood thinners (such as heparin), high doses of vitamin A What can I do to treat osteoporosis? There are many steps you can take to treat osteoporosis. Taking Prolia, along with calcium and vitamin D, may be one option for you. [employer] a subsidiary of [employer]. [facility] [place], [place] [address] This Medication Guide has been approved by the US Food and Drug Administration. 1xxxxxx - v1 Issued: 09/2009 documented in this encounter Progress Notes * Idalia Vivar LPN - 01/14/2024 1:19 PM EDT Sharmin Jackson presents today for administration of Prolia. She understands the benefits and risks of this treatment. An educational pamphlet was given to the patient. Prolia 60 mg was administered subcutaneously. The patient tolerated the procedure without problems. She will return in 6 months for the next injection and evaluation. Idalia Vivar LPN documented in this encounter Nursing Notes * Idalia Vivar LPN - 01/14/2024 1:17 PM EDT Chief Complaint Patient presents with Medication Administration prolia documented in this encounter Plan of Treatment Upcoming Encounters Date Type Department Care Team (Late st Contact Info) Description 02/27/2024 2:15 PM EDT Office Visit Urogynecology [facility] [address] [place] [address] Reagan Duckworth MD [address] [place] [address] Nurse Huey Ambrocio Dallin [address] [place] [address] 03/12/2024 12:30 PM EST Office Visit Otolaryngology [facility] [address] [place] [address] Tiara Conklin PA-C [address] [place] [address] Kailyn Bah Au.D. [address] [place] [address] 04/02/2024 11:00 AM EST Office Visit Cardiology, [facility] [address] [place] [address] Allan Siddiqui PA-C [address] [place] [address] 06/03/2024 11:20 AM EST Office Visit Family Practice [facility] [address] [facility] [place] [address] Aayush Medrano MD [address] [facility] [place] [address] 06/09/2024 10:00 AM EST Office Visit Pulmonary Medicine, [facility] [address] [facility] [place] [address] Ger Lu MD [address] [place] [address] 07/09/2024 11:30 AM EDT Office Visit Urology, [facility] 132 [facility] [place] [address] Spencer Kumari MD [address] [facility] [place] [address] 07/18/2024 2:00 PM EDT Office Visit Rheumatology [address] [place] [address] Edmond Michel CRNP [address] [place] [address] [place] [address] Health Maintenance Due Date Last Done Comments [...] D LEVEL ONCE IN A LIFETIME-USE SMARTSET# [id number] Completed 06/27/2023, 01/10/2021, 09/25/2008 HPV (Gardasil) Vaccine [...] Primary documented in this encounter Administered Medications Inactive Administered Medications - up to 3 most recent administrations Medication Order MAR Action Action Date Dose Rate Site Denosumab (Prolia) subcut inj 60 mg 60 mg, Subcutaneous, ONCE, On 01/14/24 at 1330, For 1 dose Given 01/14/2024 1:22 PM EDT 60 mg Arm Right Upper documented in this encounter Advance Directives Healthcare Agents on File Name Relationship Healthcare Agent Relationshi p Communication Cristobal Jackson Spouse Health Care Repr esentative (appointed verbally by patient or by statute hierarchy) Care Teams Leg Assembler Relationship Specialty Start Date End Date Aayush Medrano MD [address] [place] [address] PCP - General Family Medicine 08/23/23 documented as of this encounter
--- OUTSIDE RECORDS SUMMARY | 2024-01-16 10:11 | External Medical Summary | Summary of Care ---
Author Name Unknown Organization [facility] Address [address] [facility] [address] Phone [phone] Care Team Providers Care Echo Technologist Name Role Phone Aayush Medrano MD Primary Care Provider Reason for Visit * Reason Onset Date Comments Order Request 01/09/2024 prolia Encounter Details Date Type Department Care Team (Late st Contact Info) Description 01/09/2024 Telephone Rheumatology [facility] [place] [address] [facility] [place] [id number] Cr Gill PA-C [address] [place] [address] Order Request (prolia) Allergies Active Allergy Reactions Criticality Noted Date Comments Penicillins 10/25/1999 rash and given shot as a child, has tolerated augmentin ok as well as cephalosporin documented as of this encounter (statuses as of 01/09/2024) Medications Medication Sig Dispensed Refills Start Date End Date Status Acetaminophen Childrens 160 MG/5ML Oral Solution Administer into feeding tube 640 mg 4 times a day as needed for Pain. Active Fibersource HN Oral LiquidIndications:Sev ere protein-calorie malnutrition (HCC) Administer 6 cans daily as directed via G tube via bolus syringe 91763 mL 11 07/11/2023 Active Magic Mouthwash (Zlgtbumlv-Syowmgoz-K ystatin) oral solution Swish and spit 15 [...] 180 Tablet 3 12/21/2023 Active Magic Mouthwash (Zyaxyhwuk-Quczukdu-W ystatin) oral solution Swish and spit 15 mL in the morning and 15 mL before bedtime. 300 mL 2 01/08/2024 Active Hospital, Clinic, or Other Facility Administered Medication Ordered Dose Route Frequency Start Date End Date Status Denosumab (Prolia) subcut inj 60 mgIndications:Senile osteoporosis 60 mg SC [id number] 07/11/2023 07/05/2024 Active Denosumab (Prolia) subcut inj 60 mgIndications:Senile osteoporosis 60 mg SC ONCE 01/14/2024 01/15/2024 Active documented as of this encounter (statuses as of 01/09/2024) Active Problems Problem Noted Date Diagnosed Date [...] as of this encounter (statuses as of 01/09/2024) Resolved Problems Problem Noted Date Diagnosed Date [...] as of this encounter (statuses as of 01/09/2024) Immunizations Name Administration Dates Next Due COVID-19 mRNA, LNP-s, No Pre serve, 2-Dose Series (arGEN-X) 03/16/2021,08/12/2020,07/22/2020 Covid-19, Mrna, Lnp-s, Pf, B ivalent, [...] 11/30/2023 Does the household have a re lar source of income? (Household - for ages [...] Telephone Encounter - Verónica Ruiz LPN - 01/09/2024 11:43 AM EDT Chart reviewed and labs noted to be within normal limits. Patient has been seen within the last 12 months by a Rheumatology provider. Prolia authorization approved and updated in referral. Last injection has been > 6 months and 1 day. CAM orders pended for signature. documented in this encounter Plan of Treatment Upcoming Encounters Date Type Department Care Team (Late st Contact Info) Description 01/14/2024 1:30 PM EDT Nurse Only Rheumatology [place] [id number] [facility] [place] [address] Pf, Nurse Rheum [facility] [place] [address] 02/27/2024 2:15 PM EDT Office Visit Urogynecology [facility] [address] [place] [address] Reagan Duckworth MD [address] [place] [address] Nurse Huey Ambrocio [address] [place] [address] 03/12/2024 12:30 PM EST Office Visit Otolaryngology [facility] [address] [place] [address] Tiara Conklin PA-C [address] [place] [address] Kailyn Bah Au.D. [address] [place] [address] 04/02/2024 11:00 AM EST Office Visit Cardiology, [facility] [address] [place] [address] Allan Siddiqui PA-C [address] [place] [address] 06/03/2024 11:20 AM EST Office Visit Family Practice [facility] [place] [address] Aayush Medrano MD [address] [place] [address] 06/09/2024 10:00 AM EST Office Visit Pulmonary Medicine, [facility] [address] [facility] [place] [address] Ger Lu MD [address] [place] [address] 07/09/2024 11:30 AM EDT Office Visit Urology, [facility] [address] [facility] [place] [address] Spencer Kumari MD [address] [place] [address] Health Maintenance Due Date Last Done Comments [...] D LEVEL ONCE IN A LIFETIME-USE SMARTSET# [id number] Completed 06/27/2023, 01/10/2021, 09/25/2008 HPV (Gardasil) Vaccine [...] patient or by statute hierarchy) Care Teams Echo Technologist Relationship Specialty Start Date End Date Aayush Medrano MD [address] [facility] [place] [address] PCP - General Family Medicine 08/23/23 documented as of this encounter
--- OUTSIDE RECORDS SUMMARY | 2024-01-16 10:11 | External Medical Summary | Summary of Care ---
Author Name Unknown Organization [facility] Address [address] [place] [address] Phone [phone] Care Team Providers Care Practice Representative Name Role Phone Aayush Medrano MD Primary Care Provider Reason for Visit * Reason Onset Date Comments Medication Refill 01/08/2024 Encounter Details Date Type Department Care Team (Late st Contact Info) Description 01/08/2024 Telephone Family Practice [facility] [address] [place] [address] Aayush Medrano MD [address] [place] [address] Medication Refill Allergies Active Allergy Reactions Criticality Noted Date [...] directed via G tube via bolus syringe 57192 mL 11 07/11/2023 Active Magic Mouthwash (Apuyelcqy-Hpyjhbkw-M ystatin) oral solution Swish and spit 15 [...] 180 Tablet 3 12/21/2023 Active Magic Mouthwash (Jrwmqicuf-Jtaydljf-D ystatin) oral solution Swish and spit 15 mL in the morning and 15 mL before bedtime. 300 mL 2 01/08/2024 Active Hospital, Clinic, or Other Facility Administered Medication Ordered Dose Route Frequency Start Date End Date Status Denosumab (Prolia) subcut inj 60 mgIndications:Senile osteoporosis 60 mg SC [id number] 07/11/2023 07/05/2024 Active documented as of this [...] mRNA, LNP-s, No Pre serve, 2-Dose Series ([employer]) 03/16/2021,08/12/2020,07/22/2020 Covid-19, Mrna, Lnp-s, Pf, B ivalent, [...] encounter Miscellaneous Notes * Telephone Encounter - Aayush Medrano MD - 01/08/2024 2:00 PM EDT Refill on her mouthwash medication - she was previously unable to get it filled at her pharmacy andthe pharmacist recommended another medication that did not help at all. Sent to [facility]. documented in this encounter Plan of Treatment Upcoming Encounters Date Type Department Care Team (Late st Contact Info) Description 01/14/2024 1:30 PM EDT Nurse Only Rheumatology [address] [place] [address] Pf, Nurse Rheum [address] [place] [address] [place] [address] 02/27/2024 2:15 PM EDT Office Visit Urogynecology [facility] [address] [place] [address] Reagan Duckworth MD [address] [place] [address] Nurse Huey Ambrocio Dallin [address] [place] [address] 03/12/2024 12:30 PM EST Office Visit Otolaryngology [facility] [address] [place] [address] Tiara Conklin PA-C [address] [place] [address] Kailyn Bah Au.D. [address] [place] [address] 04/02/2024 11:00 AM EST Office Visit Cardiology, [facility] [address] [place] [address] Allan Siddiqui PA-C [address] [place] [address] 06/03/2024 11:20 AM EST Office Visit [facility] Practice [facility] [place] [address] aAyush Medrano MD [address] [place] [address] 06/09/2024 10:00 AM EST Office Visit Pulmonary Medicine, [facility] [place] [address] Ger Lu MD [address] [place] [address] 07/09/2024 11:30 AM EDT Office Visit Urology, [facility] [place] [address] Spencer Kumari MD 27 [facility] [place] [phone] Health Maintenance Due Date Last Done Comments [...] D LEVEL ONCE IN A LIFETIME-USE SMARTSET# [id number] Completed 06/27/2023, 01/10/2021, 09/25/2008 HPV (Gardasil) Vaccine [...] patient or by statute hierarchy) Care Teams Practice Representative Relationship Specialty Start Date End Date Aayush Medrano MD [address] [place] [address] PCP - General Family Medicine 08/23/23 documented as of this encounter
--- OUTSIDE RECORDS SUMMARY | 2024-01-16 10:11 | External Medical Summary | Summary of Care ---
Author Name Unknown Organization [facility] Address [address] [place] [facility] [place] [address] Phone [phone] Care Team Providers Care Freight Team Associate Name Role Phone Aayush Medrano MD Primary Care Provider Reason for Visit * Reason Onset Date Comments Medication Administration prolia Medication Administration 01/14/2024 Prolia Encounter Details Date Type Department Care Team (Late st Contact Info) Description 01/14/2024 1:30 PM EDT Nurse Only Rheumatology [facility] [address] [facility] [place] [address] Pf, Nurse Rheum [address] [facility] [place] [address] Medication Administration (prolia); Medica... Allergies Active Allergy [...] directed via G tube via bolus syringe 41430 mL 11 07/11/2023 Active Magic Mouthwash (Txualxlpt-Xpwmwpqk-I ystatin) oral solution Swish and spit 15 [...] 180 Tablet 3 12/21/2023 Active Magic Mouthwash (Ouvjtzace-Ayxdiulo-B ystatin) oral solution Swish and spit 15 mL in the morning and 15 mL before bedtime. 300 mL 2 01/08/2024 Active Hospital, Clinic, or Other Facility Administered Medication Ordered Dose Route Frequency Start Date End Date Status Denosumab (Prolia) subcut inj 60 mgIndications:Senile osteoporosis 60 mg SC [id number] 07/11/2023 07/05/2024 Active Denosumab (Prolia) subcut inj [...] 01/14/2024 1:19 PM EDT MEDICATION GUIDE Prolia (TN-althea-a) (denosumab) Injection Read the Medication Guide that [...] talk to your doctor about enrolling with [employer] SurveillanceProgram or call ([phone]. [facility] HOSPITALSmarty Ring). The purpose of this program is to [...] teeth and gums while you receive Prolia. [place] and floss your teeth regularly. Tell your [...] may report side effects to FDA at 1-514-WGC-7990. How should I handle Prolia if I [...] health professionals. For more information, go to www.WaveConnex or call [employer] at . What are the ingredients in Prolia? Active ingredient: denosumab Inactive ingredients: sorbitol, acetate, polysorbate 20 (prefilled syringe only), Water for Injection (GROUP HOME), and sodium hydroxide What is osteoporosis? Osteoporosis [...] D, may be one option for you. [employer], a subsidiary of [employer]. [employer] [place], [place] [address] This Medication Guide has been approved by [...] 02/27/2024 2:15 PM EDT Office Visit Urogynecology [facility] [address] [place] [address] Reagan Duckworth MD [address] [place] [address] Nurse Huey Ambrocio Dallin [address] [place] [address] 03/12/2024 12:30 PM EST Office Visit Otolaryngology [facility] [address] [place] [address] Tiara Conklin PA-C [address] [place] [address] Kailyn Bah Au.D. [address] [place] [address] 04/02/2024 11:00 AM EST Office Visit Cardiology, [facility] [address] [place] [address] Allan Siddiqui PA-C [address] [place] [address] 06/03/2024 11:20 AM EST Office Visit Family Practice [facility] [address] [facility] [place] [address] Aayush Medrano MD 132 [facility] [place] [address] 06/09/2024 10:00 AM EST Office Visit Pulmonary Medicine, [facility] [address] [facility] [place] [address] Ger Lu MD [address] [place] [address] 07/09/2024 11:30 AM EDT Office Visit Urology, [facility] 132 [facility] [place] [address] Spencer Kumari MD [address] [facility] [place] [address] 07/18/2024 2:00 PM EDT Office Visit Rheumatology [address] [place] [address] Edmond Michel CRNP [address] [place] [address] [place] [address] Health Maintenance Due Date Last Done Comments [...] D LEVEL ONCE IN A LIFETIME-USE SMARTSET# [id number] Completed 06/27/2023, 01/10/2021, 09/25/2008 HPV (Gardasil) Vaccine [...] patient or by statute hierarchy) Care Teams Freight Team Associate Relationship Specialty Start Date End Date Aayush Medrano MD [address] [place] [address] PCP - General Family Medicine 08/23/23 documented as of this encounter
--- OUTSIDE RECORDS SUMMARY | 2024-01-16 10:11 | External Medical Summary | Summary of Care ---
Author Name Unknown Organization [facility] Address [address] [place] [address] Phone [phone] Care Team Providers Care Chocolate Production Machine Operator Name Role Phone Aayush Medrano MD Primary Care Provider Reason for Referral * Precert (Within 10 days (routine)) - Authorized Specialty Diagnoses / Procedures Referred By Obed briones Referred To Contact Radiology Diagnoses Hx of breast cancer History of tongue cancer Multiple lung nodules Procedures CT CHEST WO CONTRAST Kay Sanchez CRNP [address] [place] [address] Referral ID Status Reason Start Date Expiration Date V isits Requested Visits Authorized [id number] Authorized 12/23/2024 999 999 Encounter Details Date Type Department Care Team (Late st Contact Info) Description 01/09/2024 Orders Only STAIR LUNG NODULE [address] [place] [address] Kay Sanchez CRNP [address] [place] [address] Multiple lung nodules*; Hx of breast cancer; History of tongue cancer Allergies Active Allergy Reactions Criticality Noted [...] directed via G tube via bolus syringe 45105 mL 11 07/11/2023 Active Magic Mouthwash (Fnrgjxgfb-Bnkxlgaq-N ystatin) oral solution Swish and spit 15 [...] 180 Tablet 3 12/21/2023 Active Magic Mouthwash (Rxwpncics-Vrghtpjz-T ystatin) oral solution Swish and spit 15 mL in the morning and 15 mL before bedtime. 300 mL 2 01/08/2024 Active Hospital, Clinic, or Other Facility Administered Medication Ordered Dose Route Frequency Start Date End Date Status Denosumab (Prolia) subcut inj 60 mgIndications:Senile osteoporosis 60 mg SC [id number] 07/11/2023 07/05/2024 Active Denosumab (Prolia) subcut inj [...] No 11/30/2023 Does the household have a pinon health centerlar source of income? (Household - for ages [...] 01/14/2024 1:30 PM EDT Nurse Only Rheumatology [facility] [address] [facility] [place] [address] Pf, Nurse Rheum [facility] [place] [address] 02/27/2024 2:15 PM EDT Office Visit Urogynecology [facility] [address] [place] [address] Reagan Duckworth MD [address] [place] [address] Nurse Cristóbal Uroj[facility]e [facility] [address] [place] [address] 03/12/2024 12:30 PM EST Office Visit Otolaryngology [facility] [address] [place] [address] Tiara Conklin PA-C [address] [place] [address] Kailyn Bah Au.D. [address] [place] [address] 04/02/2024 11:00 AM EST Office Visit Cardiology, [facility] [address] [place] [address] Allan Siddiqui PARachellC [address] [place] [address] 06/03/2024 11:20 AM EST Office Visit Family Practice [facility] 132 [facility] [place] [address] Aayush Medrano MD 132 [facility] [place] [address] 06/09/2024 10:00 AM EST Office Visit Pulmonary Medicine, [facility] 132 [facility] [place] [address] Ger Lu MD [address] [place] [address] 07/09/2024 11:30 AM EDT Office Visit Urology, [facility] 132 [facility] [place] [address] Spencer Kumari MD [address] [place] [address] Scheduled Orders Name Type Priority Associated Diagnoses Orde r Schedule CT CHEST WO CONTRAST Medical Imaging Routine Hx of breast cancer History of tongue cancer Multiple lung nodules Expected: 12/23/2024, Expires: 02/07/2025 Health Maintenance Due Date Last Done Comments [...] D LEVEL ONCE IN A LIFETIME-USE SMARTSET# [id number] Completed 06/27/2023, 01/10/2021, 09/25/2008 HPV (Gardasil) Vaccine [...] as of this encounter Visit Diagnoses Diagnosis Multiple lung nodules- Primary Other nonspecific abnormal finding of lung field Hx of breast cancer Personal history of malignant neoplasm of breast History of tongue cancer Personal history of malignant neoplasm of tongue documented in this encounter Advance Directives Healthcare Agents on File Name Relationship Healthcare Agent [facility] Communication Cristobal Jackson Spouse Health Care Repr esentative (appointed verbally by patient or by statute hierarchy) Care Teams Chocolate Production Machine Operator Relationship Specialty Start Date End Date Aayush Medrano MD [address] [place] [address] PCP - General Family Medicine 08/23/23 documented as of this encounter
--- OUTSIDE RECORDS SUMMARY | 2024-01-16 10:11 | External Medical Summary | Summary of Care ---
Author Name Unknown Organization [facility] Address [address] [place] [facility] [place] [place] [address] Phone [phone] Care Team Providers Care Automatic Pinsetter Mechanic Name Role Phone Aayush Medrano MD Primary Care Provider Reason for Visit * Reason Onset Date Comments Medication Administration prolia Medication Administration 01/14/2024 Prolia Encounter Details Date Type Department Care Team (Late st Contact Info) Description 01/14/2024 1:30 PM EDT Nurse Only Rheumatology [facility] [address] [facility] [place] [address] Pf, Nurse Rheum [address] [facility] [place] [address] Medication Administration (prolia); Medica... Allergies Active Allergy [...] directed via G tube via bolus syringe 33038 mL 11 07/11/2023 Active Magic Mouthwash (Dutrlruda-Secepqrf-J ystatin) oral solution Swish and spit 15 [...] 180 Tablet 3 12/21/2023 Active Magic Mouthwash (Vunoirozd-Jhhvwbyl-U ystatin) oral solution Swish and spit 15 mL in the morning and 15 mL before bedtime. 300 mL 2 01/08/2024 Active Hospital, Clinic, or Other Facility Administered Medication Ordered Dose Route Frequency Start Date End Date Status Denosumab (Prolia) subcut inj 60 mgIndications:Senile osteoporosis 60 mg SC [id number] 07/11/2023 07/05/2024 Active Denosumab (Prolia) subcut inj [...] 01/14/2024 1:19 PM EDT MEDICATION GUIDE Prolia (ID-althea-a) (denosumab) Injection Read the Medication Guide that [...] talk to your doctor about enrolling with [employer] SurveillanceProgram or call ([phone] STICKNEY CABLE MEMORIAL HOSPITALGingr). The purpose of this program is to [...] teeth and gums while you receive Prolia. [place] and floss your teeth regularly. Tell your [...] may report side effects to FDA at 4-872-OEG-2016. How should I handle Prolia if I [...] health professionals. For more information, go to www.Novatris or call [employer] at . What are the ingredients in Prolia? Active ingredient: denosumab Inactive ingredients: sorbitol, acetate, polysorbate 20 (prefilled syringe only), Water for Injection (RETIREMENT), and sodium hydroxide What is osteoporosis? Osteoporosis [...] D, may be one option for you. [employer], a subsidiary of [employer]. [employer] [place], [place] [address] This Medication Guide has been approved by [...] 02/27/2024 2:15 PM EDT Office Visit Urogynecology [facility] [address] [place] [address] Reagan Duckworth MD [address] [place] [address] Nurse Huey Ambrocio Dallin [address] [place] [address] 03/12/2024 12:30 PM EST Office Visit Otolaryngology [facility] [address] [place] [address] Tiara Conklin PA-C [address] [place] [address] Kailyn Bah Au.D. [address] [place] [address] 04/02/2024 11:00 AM EST Office Visit Cardiology, [facility] [address] [place] [address] Allan Siddiqui PA-C [address] [place] [address] 06/03/2024 11:20 AM EST Office Visit Family Practice [facility] 132 [facility] [place] [address] Aayush Medrano MD 132 [facility] [place] [address] 06/09/2024 10:00 AM EST Office Visit Pulmonary Medicine, [facility] 132 [facility] [place] [address] Ger Lu MD [address] [facility] [address] 07/09/2024 11:30 AM EDT Office Visit Urology, [facility] 132 [facility] [place] [address] Spencer Kumari MD [address] [facility] [place] [address] Health Maintenance Due Date Last Done Comments [...] D LEVEL ONCE IN A LIFETIME-USE SMARTSET# [id number] Completed 06/27/2023, 01/10/2021, 09/25/2008 HPV (Gardasil) Vaccine [...] patient or by statute hierarchy) Care Teams Automatic Pinsetter Mechanic Relationship Specialty Start Date End Date Aayush Medrano MD [address] [place] [address] PCP - General Family Medicine 08/23/23 documented as of this encounter
--- OUTSIDE RECORDS SUMMARY | 2024-01-16 10:12 | External Medical Summary | Summary of Care ---
Author Name Unknown Organization [facility] Address [address] [place] [address] Phone [phone] Care Team Providers Care Claims Adjuster Name Role Phone Aayush Medrano MD Primary Care Provider Reason for Referral * Ancillary Services (Within 10 days (routine)) - Authorized Specialty Diagnoses / Procedures Referred By Obed briones Referred To Contact Audiology Diagnoses Hearing loss of left ear, unspecified hearing loss type Aayush Medrano MD [address] [place] [address] Referral ID Status Reason Start Date Expiration Date Visits Requested Visits Authorized [id number] Authorized Ancillary Services Required 01/08/2024 999 999 Question Answer Referral Priority Within 10 days (routine) Where should this appointment be scheduled? [facility] Reason for Referral: Hearing Loss Is this sudden hearing loss or post chemotherapy hearing loss? No Reason for Visit * Reason Onset Date Comments Hearing Problem 01/08/2024 Encounter Details Date Type Department Care Team (Late st Contact Info) Description 01/08/2024 Telephone Family Practice [facility] [address] [place] [address] Aayush Medrano MD [address] [place] [address] Hearing Problem Allergies Active Allergy Reactions Criticality [...] directed via G tube via bolus syringe 02542 mL 11 07/11/2023 Active Magic Mouthwash (Fwrxqhjtd-Kjbwjbds-N ystatin) oral solution Swish and spit 15 [...] inj 60 mgIndications:Senile osteoporosis 60 mg SC [id number] 07/11/2023 07/05/2024 Active documented as of this [...] ENT referral * Telephone Encounter - Aayush Medrano MD - 01/08/2024 1:56 PM EDT Patient [...] 01/14/2024 1:30 PM EDT Nurse Only Rheumatology [address] [place] [address] Pf, Nurse Rheum [address] [place] [address] [place] [address] 02/27/2024 2:15 PM EDT Office Visit Urogynecology Prashanth Ambrocio [address] [place] [address] Reagan Duckworth MD [address] [place] [address] Nurse Huey Ambrocio [address] [place] [address] 04/02/2024 11:00 AM EST Office Visit Cardiology, [facility] 132 [facility] [place] [address] Allan Siddiqui PA-C 132 [facility] [place] [address] 06/03/2024 11:20 AM EST Office Visit Family Practice [facility] 132 [facility] [place] [address] Aayush Medrano MD 132 [facility] [place] [address] 06/09/2024 10:00 AM EST Office Visit Pulmonary Medicine, [facility] 132 [facility] [place] [address] Ger Lu MD [address] [place] [address] 07/09/2024 11:30 AM EDT Office Visit Urology, [facility] 132 [facility] [place] [address] Spencer Kumari MD [address] [place] [address] Scheduled Referrals Name Type Priority Associated [...] D LEVEL ONCE IN A LIFETIME-USE SMARTSET# [id number] Completed 06/27/2023, 01/10/2021, 09/25/2008 HPV (Gardasil) Vaccine [...] patient or by statute hierarchy) Care Teams Claims Adjuster Relationship Specialty Start Date End Date Aayush Medrano MD [address] [place] [address] PCP - General Family Medicine 08/23/23 documented as of this encounter
--- OUTSIDE RECORDS SUMMARY | 2024-01-16 10:12 | External Medical Summary | Summary of Care ---
Author Name Unknown Organization [facility] Address [address] [place] [address] Phone [phone] Care Team Providers Care Ux Designer Name Role Phone Aayush Medrano MD Primary Care Provider Reason for Visit * Reason Onset Date Comments Appointment 01/03/2024 Encounter Details Date Type Department Care Team (Late st Contact Info) Description 01/03/2024 Telephone Gynecology/Obstetrics [facility] [address] [place] [address] Balbina Naik CRNP [address] [place] [address] Appointment Allergies Active Allergy Reactions Criticality Noted Date Comments Penicillins 10/25/1999 rash and given shot as a child, has tolerated augmentin ok as well as cephalosporin documented as of this encounter (statuses as of 01/03/2024) Medications Medication Sig Dispensed Refills Start Date End Date Status Acetaminophen Childrens 160 MG/5ML Oral Solution Administer into feeding tube 640 mg 4 times a day as needed for Pain. Active [employer] HN Oral LiquidIndications:Sev ere protein-calorie malnutrition (HCC) Administer 6 cans daily as directed via G tube via bolus syringe 71759 mL 11 07/11/2023 Active Magic Mouthwash (Glturpaay-Wacwfyme-Q ystatin) oral solution Swish and spit 15 [...] inj 60 mgIndications:Senile osteoporosis 60 mg SC [id number] 07/11/2023 07/05/2024 Active documented as of this encounter (statuses as of 01/03/2024) Active Problems Problem Noted Date Diagnosed Date [...] as of this encounter (statuses as of 01/03/2024) Resolved Problems Problem Noted Date Diagnosed Date [...] as of this encounter (statuses as of 01/03/2024) Immunizations Name Administration Dates Next Due COVID-19 mRNA, LNP-s, No Pre serve, 2-Dose Series (Mood[employer]) 03/16/2021,08/12/2020,07/22/2020 Covid-19, Mrna, Lnp-s, Pf, B ivalent, 30 Mcg, IM, 12 yrs and above (Moodyo) 02/24/2022 Pneumococcal Conjugate Vacc, 13 Valent (Prevnar) [...] Notes * Telephone Encounter - Jeri Saldana CMA - 01/03/2024 3:11 PM EDT Pt scheduled * Telephone Encounter - Jeri Saldana CMA - 01/03/2024 1:45 PM EDT Referral placed for UROGYN. Please call patient to schedule. Thank you! documented in this encounter Plan of Treatment Upcoming Encounters Date Type Department Care Team (Late st Contact Info) Description 01/14/2024 1:30 PM EDT Nurse Only Rheumatology [facility] [address] [facility] [place] [address] Pf, Nurse Rheum [address] [facility] [place] [address] 02/27/2024 2:15 PM EDT Office Visit Urogynecology [facility] [address] [place] [address] Reagan Duckworth MD [address] [place] [address] Nurse Cristóbal Urogyjames [facility] [address] [place] [address] 04/02/2024 11:00 AM EST Office Visit Cardiology, [facility] [address] [place] [address] Allan Siddiqui PA-C [address] [place] [address] 06/03/2024 11:20 AM EST Office Visit Family Practice [facility] [address] [place] [address] Aayush Medrano MD [address] [place] [address] 06/09/2024 10:00 AM EST Office Visit Pulmonary Medicine, [facility] [address] [place] [address] Ger Lu MD [address] [place] [address] 07/09/2024 11:30 AM EDT Office Visit Urology, [facility] [address] [place] [address] Spencer Kumari MD [address] [place] [address] Health Maintenance Due Date Last Done Comments [...] D LEVEL ONCE IN A LIFETIME-USE SMARTSET# [id number] Completed 06/27/2023, 01/10/2021, 09/25/2008 HPV (Gardasil) Vaccine [...] patient or by statute hierarchy) Care Teams Ux Designer Relationship Specialty Start Date End Date Delozier, Aayush Jakob, MD [address] [place] [address] PCP - General Family Medicine 08/23/23 documented as of this encounter
--- OUTSIDE RECORDS SUMMARY | 2024-01-16 10:12 | External Medical Summary | Summary of Care ---
Author Name Unknown Organization [facility] Address [address] [place] [address] Phone [phone] Care Team Providers Care Credit Portfolio Advisor Name Role Phone Aayush Hardwick MD Primary Care Provider Reason for Referral * Evaluate & Treat - Unlimited Visits (Within 10 days (routine)) - Authorized Specialty Diagnoses / Procedures Referred By Obed briones Referred To Contact Otolaryngology Diagnoses Hearing loss of left ear, unspecified hearing loss type Aayush Hardwick MD [address] [place] [address] Referral ID Status Reason Start Date Expiration Date Visits Requested Visits Authorized [id number] Authorized Specialty Services Required 01/08/2024 999 999 [...] loss type Aayush Hardwick MD [address] [place] [address] Referral ID Status Reason Start Date Expiration Date Visits Requested Visits Authorized [id number] Authorized Ancillary Services Required 01/08/2024 999 999 [...] Contact Info) Description 01/08/2024 Telephone Family Practice [facility] [address] [place] [address] Aauysh Hardwick MD [address] [place] [address] [...] directed via G tube via bolus syringe 44464 mL 11 07/11/2023 Active Magic Mouthwash (Ruuaujttj-Qymzwboj-C ystatin) oral solution Swish and spit 15 [...] inj 60 mgIndications:Senile osteoporosis 60 mg SC [id number] 07/11/2023 07/05/2024 Active documented as of this [...] mRNA, LNP-s, No Pre serve, 2-Dose Series ([employer]) 03/16/2021,08/12/2020,07/22/2020 Covid-19, Mrna, Lnp-s, Pf, B ivalent, 30 Mcg, IM, 12 yrs and above ([employer]) 02/24/2022 Pneumococcal Conjugate Vacc, 13 Valent (Prevnar) [...] 01/14/2024 1:30 PM EDT Nurse Only Rheumatology [address] [place] [address] Pf, Nurse Rheum [address] [place] [address] [place] [address] 02/27/2024 2:15 PM EDT Office Visit Urogynecology [facility] [address] [place] [address] Reagan Duckworth MD [address] [place] [address] Nurse Huey Ambrocio [address] [place] [address] 03/12/2024 12:30 PM EST Office Visit Otolaryngology [facility] [address] [place] [address] Tiara Conklin PA-C [address] [place] [address] Kailyn Bah Au.D. [address] [place] [address] 04/02/2024 11:00 AM EST Office Visit Cardiology, [facility] 132 [facility] [place] [address] Allan Siddiqui PA-C [address] [facility] [place] [address] 06/03/2024 11:20 AM EST Office Visit Family Practice [facility] 132 [facility] [place] [address] Aayush Hardwick MD 132 [facility] [place] [address] 06/09/2024 10:00 AM EST Office Visit Pulmonary Medicine, [facility] 132 [facility] [place] [address] Ger Lu MD [address] [place] [address] 07/09/2024 11:30 AM EDT Office Visit Urology, [facility] [address] [place] [address] Spencer Kumari MD 27 [facility] [place] [address] Scheduled Referrals Name [...] D LEVEL ONCE IN A LIFETIME-USE SMARTSET# [id number] Completed 06/27/2023, 01/10/2021, 09/25/2008 HPV (Gardasil) Vaccine [...] patient or by statute hierarchy) Care Teams Credit Portfolio Advisor Relationship Specialty Start Date End Date Aayush Hardwick MD [address] [place] [address] PCP - General Family Medicine 08/23/23 documented as of this encounter
--- OUTSIDE RECORDS SUMMARY | 2024-01-16 10:12 | External Medical Summary | Summary of Care ---
Author Name Unknown Organization [facility] Address [address] [place] [address] Phone [phone] Care Team Providers Care Resolution Rep Name Role Phone Aayush Medrano MD Primary Care Provider Reason for Visit * Reason Onset Date Comments Medication Refill 12/21/2023 Encounter Details Date Type Department Care Team (Late st Contact Info) Description 12/21/2023 Refill Family Practice [facility] [address] [place] [address] Pati Lu, RN [address] [place] [address] Need for case management follow-up*; Paroxysmal atrial fibrillation (HCC) Allergies Active Allergy Reactions Criticality Noted Date Comments Penicillins 10/25/1999 rash and given shot as a child, has tolerated augmentin ok as well as cephalosporin documented as of this encounter (statuses as of 12/21/2023) Medications Medication Sig Dispensed Refills Start Date End Date Status Acetaminophen Childrens 160 MG/5ML Oral Solution Administer into feeding tube 640 mg 4 times a day as needed for Pain. Active Fibersource HN Oral LiquidIndications:S evere protein-calorie malnutrition (HCC) Administer 6 cans daily as directed via G tube via bolus syringe 87399 mL 11 07/11/2023 Active Magic Mouthwash (Lidocaine-Benadryl -Nystatin) oral solution Swish and spit 15 mL 3 times a day as needed (oral irritation and mucositis). 450 mL 1 11/13/2023 Active Levothyroxine Sodium 100 MCG Oral Tablet (Levoxyl)Indication s:Acquired hypothyroidism Take 1 Tablet by mouth in the morning. (at least 30 min prior to breakfast or other meds). 90 Tablet 11/19/2023 Active Apixaban 2.5 MG Oral Tablet (Eliquis)Indication s:Need for case management follow-up,Paroxysma l atrial fibrillation (HCC) Administer 1 Tablet into G tube in the morning and 1 Tablet before bedtime. 180 Tablet 3 12/21/2023 Active Carvedilol 6.25 MG Oral Tablet (Coreg)Indications: Need for case management follow-up,Paroxysma l atrial fibrillation (HCC) Administer 1 Tablet into G tube 2 times a day with morning and evening meals. 180 Tablet 3 12/21/2023 Active Apixaban 2.5 MG Oral Tablet (Eliquis) Administer 1 Tablet into G tube in the morning and 1 Tablet before bedtime. 60 Tablet 3 08/27/2023 4 Discontinue d(Refill) Carvedilol 6.25 MG Oral Tablet (Coreg) Administer 1 Tablet into G tube 2 times a day with morning and evening meals. 60 Tablet 3 08/27/2023 4 Discontinue d(Refill) Hospital, Clinic, or Other Facility Administered Medication Ordered Dose Route Frequency Start Date End Date Status Denosumab (Prolia) subcut inj 60 mgIndications:Senile osteoporosis 60 mg SC [id number] 07/11/2023 07/05/2024 Active documented as of this encounter (statuses as of 12/21/2023) Active Problems Problem Noted Date Diagnosed Date [...] as of this encounter (statuses as of 12/21/2023) Resolved Problems Problem Noted Date Diagnosed Date [...] 02/06/2017 DIFFUS CYSTIC MASTOPATHY 03/08/200101/2017 HYPOTHYROIDISM NOS 10/25/ 6 Esophageal stricture 023 documented as of this encounter (statuses as of 12/21/2023) Immunizations Name Administration Dates Next Due COVID-19 [...] Telephone Encounter - Aayush Medrano MD - 12/21/2023 9:58 AM EDT Signed and sent * Telephone Encounter - Pati Lu RN - 12/21/2023 9:45 AM EDT Received call from spouse, patient needs refills of coreg and eliquis, requesting 90 day supply. Pended scripts. Covering CM. Pati Lu RN Case Manager [facility] Internal Medicine/Family Practice [facility] [phone] documented in this encounter Plan of Treatment Upcoming Encounters Date Type Department Care Team (Late st Contact Info) Description 12/24/2023 12:30 PM EDT Imaging Radiology [facility] 1st [facility] [place] [address] [place] [address] 01/03/2024 1:45 PM EDT Office Visit Gynecology/Obstetrics [facility] [address] [place] [address] Balbina Naik CRNP [address] [place] [address] 01/14/2024 1:30 PM EDT Nurse Only Rheumatology [address] [place] [address] Pf, Nurse Rheum [address] [place] [address] [place] [address] 04/02/2024 11:00 AM EST Office Visit Cardiology, [facility] [address] [place] [address] Allan Siddiqui PA-C [address] [place] [address] 06/03/2024 11:20 AM EST Office Visit Family Practice [facility] [place] [address] Aayush Medrano MD [address] [place] [address] 06/09/2024 10:00 AM EST Office Visit Pulmonary Medicine, [facility] 132 [facility] [place] [address] Ger Lu MD [address] [place] [address] 07/09/2024 11:30 AM EDT Office Visit Urology, [facility] [place] [address] Spencer Kumari MD [address] [place] [phone] Health Maintenance Due Date Last Done Comments [...] D LEVEL ONCE IN A LIFETIME-USE SMARTSET# [id number] Completed 06/27/2023, 01/10/2021, 09/25/2008 HPV (Gardasil) Vaccine [...] as of this encounter Visit Diagnoses Diagnosis Need for case management follow-up- Primary Paroxysmal atrial fibrillation (HCC) Atrial fibrillation documented in this encounter Advance Directives Healthcare Agents on File Name Relationship Healthcare Agent Relationswa p Communication Cristobal Jackson Spouse Health Care Repr esentative (appointed verbally by patient or by statute hierarchy) Care Teams Resolution Rep Relationship Specialty Start Date End Date Aayush Medrano MD 132 [facility] [place] [address] PCP - General Family Medicine 08/23/23 documented as of this encounter
--- OUTSIDE RECORDS SUMMARY | 2024-01-16 10:12 | External Medical Summary | Summary of Care ---
Author Name Unknown Organization [facility] Address [address] [place] [address] Phone [phone] Care Team Providers Care Poultry Raiser Name Role Phone Aayush Hardwick MD Primary Care Provider Reason for Referral * Evaluate & Treat - Unlimited Visits (Within 10 days (routine)) - Authorized Specialty Diagnoses / Procedures Referred By Obed briones Referred To Contact Otolaryngology Diagnoses Hearing loss of left ear, unspecified hearing loss type Aayush Hardwick MD [address] [facility] [place] [address] Referral ID Status Reason Start Date Expiration Date Visits Requested Visits Authorized [id number] Authorized Specialty Services Required 01/08/2024 999 999 [...] loss type Aayush Hardwick MD [address] [facility] [place] [address] Referral ID Status Reason Start Date Expiration Date Visits Requested Visits Authorized [id number] Authorized Ancillary Services Required 01/08/2024 999 999 [...] Contact Info) Description 01/08/2024 Telephone Family Practice [facility] [address] [place] [address] Aayush Hardwick MD [address] [place] [...] directed via G tube via bolus syringe 05202 mL 11 07/11/2023 Active Magic Mouthwash (Amvabuehl-Dplgwdkm-J ystatin) oral solution Swish and spit 15 [...] inj 60 mgIndications:Senile osteoporosis 60 mg SC [id number] 07/11/2023 07/05/2024 Active documented as of this [...] mRNA, LNP-s, No Pre serve, 2-Dose Series (MailTime) 03/16/2021,08/12/2020,07/22/2020 Covid-19, Mrna, Lnp-s, Pf, B ivalent, 30 Mcg, IM, 12 yrs and above (MailTime) 02/24/2022 Pneumococcal Conjugate Vacc, 13 Valent (Prevnar) [...] as of this encounter Miscellaneous Notes * Addendum Note - Aayush Hardwick MD [...] 01/14/2024 1:30 PM EDT Nurse Only Rheumatology [address] [place] [address] Pf, Nurse Rheum [address] [place] [address] [place] [address] 02/27/2024 2:15 PM EDT Office Visit Urogynecology [facility] [address] [place] [address] Reagan Duckworth MD [address] [place] [address] Nurse Cristóbal Urojanae Zamarripa [address] [place] [address] 04/02/2024 11:00 AM EST Office Visit Cardiology, [facility] [address] [place] [address] [address] Allan Siddiqui PA-C [address] [place] [address] 06/03/2024 11:20 AM EST Office Visit Family Practice [facility] [address] [place] [address] Aayush Hardwick MD [address] [place] [address] 06/09/2024 10:00 AM EST Office Visit Pulmonary Medicine, [facility] 132 [facility] [place] [address] Ger Lu MD [address] [place] [address] 07/09/2024 11:30 AM EDT Office Visit Urology, [facility] 132 [facility] [place] [address] Spencer Kumari MD [address] [place] [phone] Scheduled Referrals Name Type Priority Associated Diagnoses [...] D LEVEL ONCE IN A LIFETIME-USE SMARTSET# [id number] Completed 06/27/2023, 01/10/2021, 09/25/2008 HPV (Gardasil) Vaccine [...] patient or by statute hierarchy) Care Teams Poultry Raiser Relationship Specialty Start Date End Date Aayush Hardwick MD [address] [place] [address] PCP - General Family Medicine 08/23/23 documented as of this encounter
--- OUTSIDE RECORDS SUMMARY | 2024-01-16 10:12 | External Medical Summary | Summary of Care ---
Author Name Unknown Organization [facility] Address [address] [place] [address] Phone [phone] Care Team Providers Care Housekeeping Worker Name Role Phone Aayush Medrano MD Primary Care Provider Reason for Visit * Reason Comments eRx-Medication Refill Encounter Details Date Type Department Care Team (Late st Contact Info) Description 12/20/[address] [facility] [address] [place] [address] Aayush Medrano MD [address] [facility] [place] [address] Allergies Active Allergy Reactions Criticality Noted Date [...] needed for Pain. Active Fibersource HN Oral LiquidIndications:Se yancy protein-calorie malnutrition (HCC) Administer 6 cans daily as directed via G tube via bolus syringe 27040 mL 11 07/11/2023 Active Magic Mouthwash (Lidocaine-Benadryl- Nystatin) oral solution Swish and spit 15 mL 3 times a day as needed (oral irritation and mucositis). 450 mL 1 11/13/2023 Active Levothyroxine Sodium 100 MCG Oral Tablet (Levoxyl)Indications :Acquired hypothyroidism Take 1 Tablet by mouth in the morning. (at least 30 min prior to breakfast or other meds). 90 Tablet 11/19/2023 Active Apixaban 2.5 MG Oral Tablet (Eliquis) [...] inj 60 mgIndications:Senile osteoporosis 60 mg SC [id number] 07/11/2023 07/05/2024 Active documented as of this [...] mRNA, LNP-s, No Pre serve, 2-Dose Series (Careem) 03/16/2021,08/12/2020,07/22/2020 Covid-19, Mrna, Lnp-s, Pf, B ivalent, 30 Mcg, IM, 12 yrs and above (Careem) 02/24/2022 Pneumococcal Conjugate Vacc, 13 Valent (Prevnar) [...] encounter Miscellaneous Notes * Telephone Encounter - Pati Urbina RN - 12/21/2023 9:46 AM EDTRefused Prescriptions: Disp Refills Eliquis 2.5 MG Oral Tablet 60 Tab*0 Sig: ADMINISTER 1 TABLET INTO G TUBE TWICE DAILYRefused By: Niraj URBINA for Refusal: Other (comment below)Reason for Refusal Comment: patient would like 90 day supply documented in this encounter Plan of Treatment Upcoming Encounters Date Type Department Care Team (Late st Contact Info) Description 12/24/2023 12:30 PM EDT Imaging Radiology [facility]st [facility] [address] [place] [address] 01/03/2024 1:45 PM EDT Office Visit Gynecology/Obstetrics [facility] [address] [place] [address] Balbina Naik CRNP [address] [place] [address] 01/14/2024 1:30 PM EDT Nurse Only Rheumatology [address] [place] [address] Pf, Nurse Rheum [address] [place], [place] [address] [address] 04/02/2024 11:00 AM EST Office Visit Cardiology, [facility] [address] [place] [address] Allan Siddiqui, PARachellC [address] [place] [address] 06/03/2024 11:20 AM EST Office Visit Family Practice [facility] [address] [place] [address] Aayush Medrano MD [address] [place] [address] 06/09/2024 10:00 AM EST Office Visit Pulmonary Medicine, [facility] [address] [place] [address] Ger Lu MD [address] [facility] [place] [address] 07/09/2024 11:30 AM EDT Office Visit Urology, [facility] [address] [place] [address] Spencer Kumari MD [address] [place] [address] Health Maintenance Due Date Last Done [...] D LEVEL ONCE IN A LIFETIME-USE SMARTSET# [id number] Completed 06/27/2023, 01/10/2021, 09/25/2008 HPV (Gardasil) Vaccine [...] patient or by statute hierarchy) Care Teams Housekeeping Worker Relationship Specialty Start Date End Date Aayush Medrano MD [address] [place] [address] PCP - General Family Medicine 08/23/23 documented as of this encounter
--- OUTSIDE RECORDS SUMMARY | 2024-01-16 10:12 | External Medical Summary | Summary of Care ---
Author Name Unknown Organization [facility] Address [address] [place] [address] Phone [phone] Care Team Providers Care Winder Operator Name Role Phone Aayush Medrano MD Primary Care Provider Reason for Referral * Evaluate & Treat - Unlimited Visits (Within 10 days (routine)) - Authorized Specialty Diagnoses / Procedures Referred By Obed briones Referred To Contact CASH CONTROLLER - Urogynecology / Gynecology Urology Diagnoses MIREILLE (stress urinary incontinence, female) Balbina Naik CRNP [address] [place] [address] Referral ID Status Reason Start Date Expiration Date Visits Requested Visits Authorized [id number] Authorized Specialty Services Required 01/03/2024 999 999 Question Answer Referral Priority Within 10 days (routine) Where should this appointment be scheduled? [facility] What condition is the patient being referred for? Urinary Incontinence/Overactive Bladder Reason for Visit * Reason Comments Pessary Check Encounter Details Date Type Department Care Team (Late st Contact Info) Description 01/03/2024 1:45 PM EDT Office Visit Gynecology/Obstetric s [facility] [address] [place] [address] Balbina Naik CRNP [address] [place] [address] Pessary maintenance*; MIREILLE (stress urinary incontinence, female) Allergies Active Allergy Reactions Criticality Noted Date [...] directed via G tube via bolus syringe 40511 mL 11 07/11/2023 Active Magic Mouthwash (Meieqsmqs-Teycnpbf-A ystatin) oral solution Swish and spit 15 [...] inj 60 mgIndications:Senile osteoporosis 60 mg SC [id number] 07/11/2023 07/05/2024 Active documented as of this [...] mRNA, LNP-s, No Pre serve, 2-Dose Series (GardenStory) 03/16/2021,08/12/2020,07/22/2020 Covid-19, Mrna, Lnp-s, Pf, B ivalent, [...] No 11/30/2023 Does the household have a [facility] source of income? (Household - for ages [...] Sign Reading Time Taken Comments Blood Pressure 124/66 01/03/2024 1:24 PM EDT Pulse - - Temperature - - Respiratory Rate - - Oxygen Saturation - - Inhaled Oxygen Concentration - - Weight 48.5 kg (107 lb) 01/03/2024 1:24 PM EDT Height 165.1 cm (5' 5") 01/03/2024 1:24 PM EDT Body Mass Index 17.81 01/03/2024 1:24 PM EDT documented in this encounter Functional Status Functional [...] Progress Notes * Balbina Naik CRNP - 01/03/2024 1:45 PM EDT CC: Here for pessary check HPI: Pt is a 78 year old female who presents for pessary check. Complaints: Denies vaginal bleeding. She does report urge urinary incontinence. Asking if there is anything else she can do for this. Past Medical History: Diagnosis Date BMI less [...] last dexa 06/06 - repeat 2 years Pleural effusion S/P endoscopy 05/2011 stricture, dilatation, secondary to radiation Sarcoidosis 26 yrs ago lung biopsy Unspecified prolapse of vaginal knapp has pessary in place Past Surgical History: Procedure Laterality Date CHANGE G-TUBE, PERC W/O IMAGING (DRIVER SALESMAN/RN) 06/05/2016 EGD, FLEXIBLE, DIAGNOSTIC 11/27/2012 UPPER GI ENDOSCOPY DIAGNOSTIC performed by Jacob Santos MD at [facility] EGD, FLEXIBLE, DIAGNOSTIC 10/01/2013 eso stricture, sm HH/ESOPHAGOGASTRODUODENOSCOPY (EGD), FLEXIBLE, TRANSORAL, DIAGNOSTIC performed byJacob Santos MD at ENDOSCOPY [facility] EGD, FLEXIBLE, DIAGNOSTIC 02/05/2014 ESOPHAGOGASTRODUODENOSCOPY (EGD), FLEXIBLE, TRANSORAL, DIAGNOSTIC performed by Adrian Muñoz MD at ENDOSCOPY [facility] EGD, FLEXIBLE, DIAGNOSTIC N/A 03/18/2014 ESOPHAGOGASTRODUODENOSCOPY (EGD), FLEXIBLE, TRANSORAL, DIAGNOSTIC performed by Adrian Muñoz MD at ENDOSCOPY [facility] EGD, FLEXIBLE, DIAGNOSTIC 07/28/2014 ESOPHAGOGASTRODUODENOSCOPY (EGD), FLEXIBLE, TRANSORAL, DIAGNOSTIC performed by Adrian Muñoz MD at ENDOSCOPY [facility] EGD, FLEXIBLE, DIAGNOSTIC 12/25/2014 ESOPHAGOGASTRODUODENOSCOPY (EGD), FLEXIBLE, TRANSORAL, DIAGNOSTIC performed by Isaiah Sen MD at ENDOSCOPY [facility] EGD, FLEXIBLE, DIAGNOSTIC 05/13/2015 PEG placement/inpt [facility] EGD, FLEXIBLE, DIAGNOSTIC 05/10/2015 radiation changes, eso web, HH/inpt [facility] ESOPHAGOSCOPY, FLEXIBLE, TRANSENDOSCOPIC DILATION <30MM 07/09 [place] with dilatation PARTIAL MASTECTOMY 04/07/05 Left PM/SLNB at [facility] Dr. Sharma THORACOTOMY WITH EXPLORATION 1974 Thoracotomy,with biopsy Current medication list reviewed. EXAM: General: alert and healthy Head: Normocephalic Extremities: no edema, no clubbing, no cyanosis Pelvic Exam: External genitalia and vagina anatomy within normal limits, No significant vulvar lesions, No significant vaginal discharge Pessary removed, cleaned, and replaced. Director Of Federal Sales Documentation Provider requested steelworker. Name of steelworker: Jeri A/P: Pessary maintenance (Primary) MIREILLE (stress urinary incontinence, female) - UROGYNECOLOGY CLINIC REFERRAL OP (FEMALE ONLY) Follow Up: Return in about 3 months (around 04/03/2024) for pessary. | For: pessary CEASAR Timmons documented in this encounter Nursing Notes * Stephanie Gomes LPN - 01/03/2024 1:24 PM EDT Pessary check. documented in this encounter Plan of Treatment Upcoming Encounters Date Type Department Care Team (Late st Contact Info) Description 01/14/2024 1:30 PM EDT Nurse Only Rheumatology [address] [place] [address] Pf, Nurse Rheum [address] [place] [address] [place] [address] 02/27/2024 2:15 PM EDT Office Visit Urogynecology [facility] [address] [place] [id number] Reagan Duckworth MD [address] [place] [address] Nurse Cristóbal Urojanae [facility] [address] [place] [address] 04/02/2024 11:00 AM EST Office Visit Cardiology, [facility] [address] [place] [address] Allan Siddiqui PARachellC [address] [place] [address] 06/03/2024 11:20 AM EST Office Visit Family Practice [facility] [address] [place] [address] Aayush Medrano MD [address] [place] [address] 06/09/2024 10:00 AM EST Office Visit Pulmonary Medicine, [facility] [address] [place] [address] Ger Lu MD [address] [facility] [place] [phone] 07/09/2024 11:30 AM EDT Office Visit Urology, [facility] 132 [facility] [place] [address] Spencer Kumari MD [address] [place] [address] Scheduled Referrals Name Type Priority Associated Diagnoses Order Schedule UROGYNECOLOGY CLINIC REFERRAL OP (FEMALE ONLY) Referral Within 10 days (routine) MIREILLE (stress urinary incontinence, female) Ordered: 01/03/2024 Health Maintenance Due Date Last Done Comments [...] D LEVEL ONCE IN A LIFETIME-USE SMARTSET# [id number] Completed 06/27/2023, 01/10/2021, 09/25/2008 HPV (Gardasil) Vaccine [...] Primary Fitting and adjustment of other device MIREILLE (stress urinary incontinence, female) Female stress incontinence documented in this encounter Advance Directives Healthcare Agents on File Name Relationship Healthcare Agent Relationshi p Communication Cristobal Jackson Spouse Health Care Repr esentative (appointed verbally by patient or by statute hierarchy) Care Teams Winder Operator Relationship Specialty Start Date End Date Aayush Medrano MD 132 [facility] [place] [address] PCP - General Family Medicine 08/23/23 documented as of this encounter
--- OUTSIDE RECORDS SUMMARY | 2024-01-16 10:12 | External Medical Summary | Summary of Care ---
Author Name Unknown Organization [facility] [address] [address] Phone [phone] Care Team Providers Care Airplane Electrician Name Role Phone Aayush Medrano MD Primary Care Provider Reason for Visit * Reason Comments Follow Up Here return pulm. No complaints. Encounter Details Date Type Department Care Team (Late st Contact Info) Description 12/05/2023 8:00 AM EDT Office Visit Pulmonary Medicine, [facility] [address] [place] [address] Ger Lu MD [address] [facility] [place] [address] Pleural effusion* Allergies Active Allergy Reactions Criticality Noted Date Comments Penicillins 10/25/1999 rash and given shot as a child, has tolerated augmentin ok as well as cephalosporin documented as of this encounter (statuses as of 12/05/2023) Medications Medication Sig Dispensed Refills Start Date End Date Status Acetaminophen Childrens 160 MG/5ML Oral Solution Administer into feeding tube 640 mg 4 times a day as needed for Pain. Active Fibersource HN Oral LiquidIndications:Sev ere protein-calorie malnutrition (HCC) Administer 6 cans daily as directed via G tube via bolus syringe 56609 mL 11 07/11/2023 Active Apixaban 2.5 MG Oral Tablet (Eliquis) Administer 1 Tablet into G tube in the morning and 1 Tablet before bedtime. 60 Tablet 3 08/27/2023 Active Carvedilol 6.25 MG Oral Tablet (Coreg) Administer 1 Tablet into G tube 2 times a day with morning and evening meals. 60 Tablet 3 08/27/2023 Active Magic Mouthwash ([place]-Tcsjwgun-P ystatin) oral solution Swish and spit 15 mL 3 times a day as needed (oral irritation and mucositis). 450 mL 1 11/13/2023 Active Levothyroxine Sodium 100 MCG Oral Tablet (Levoxyl)Indications: Acquired hypothyroidism Take 1 Tablet by mouth in the morning. (at least 30 min prior to breakfast or other meds). 90 Tablet 11/19/2023 Active Hospital, Clinic, or Other Facility Administered Medication Ordered Dose Route Frequency Start Date End Date Status Denosumab (Prolia) subcut inj 60 mgIndications:Senile osteoporosis 60 mg SC [id number] 07/11/2023 07/05/2024 Active documented as of this encounter (statuses as of 12/05/2023) Active Problems Problem Noted Date Diagnosed Date [...] as of this encounter (statuses as of 12/05/2023) Resolved Problems Problem Noted Date Diagnosed Date [...] as of this encounter (statuses as of 12/05/2023) Immunizations Name Administration Dates Next Due COVID-19 mRNA, LNP-s, No Pre serve, 2-Dose Series (Reachpod - Inovaktif Bilisim) 03/16/2021,08/12/2020,07/22/2020 Covid-19, Mrna, Lnp-s, Pf, B ivalent, 30 Mcg, IM, 12 yrs and above (Reachpod - Inovaktif Bilisim) 02/24/2022 Pneumococcal Conjugate Vacc, 13 Valent (Prevnar) [...] Sign Reading Time Taken Comments Blood Pressure 120/62 12/05/2023 7:46 AM EDT Pulse 63 12/05/2023 7:46 AM EDT Temperature 35.7 C (96.2 F) 12/05/2023 7:46 AM ED T Respiratory Rate 16 12/05/2023 7:46 AM EDT Oxygen Saturation 97% 12/05/2023 7:47 AM EDT ra-amb Inhaled Oxygen Concentration - - Weight 48.5 kg (107 lb) 12/05/2023 7:46 AM EDT Height 165.1 cm (5' 5") 12/05/2023 7:46 AM EDT Body Mass Index 17.81 12/05/2023 7:46 AM EDT documented in this encounter Functional Status [...] as of this encounter Progress Notes * Ger Lu MD - 12/05/2023 7:55 AM EDT 12/05/2023 Pulmonary Medicine, [facility] [address] [facility] [place] [id number] Sharmin Cody Jackson 1945 female 78 year old Attending Physician Documentation: 78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 Chronic peg tube status secondary to dysphagia and partial glossectomy status. 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 Patient denies nocturnal respiratory symptoms, purulent expectoration. Denies lower extremity edema. Physical examination today shows elderly female with torticollis , fixed neck flexion, adequate airentry with minimal wheezing, 2 fingerbreadths dullness left base, regular cardiac rhythm, no evidence of volume overload and nonlateralizing Neuro examination. Plan: 12/05/23 CXR shows NO recurrence of Lt Pleural Effusion. Maintain physical activity status Call with change in respiratory symptoms status Clinic f/u 6 months Data review: Chest x-ray 12/05/2023: shows no evidence of pleural effusion recurrence. Well-preserved lung parenchyma at baseline status. XR CHEST 2 VIEWS - 09/17/2023 HISTORY "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 F/U Lt Effusion status" IMPRESSION Persistent small left pleural effusion. XR CHEST 2 VIEWS-09/03/2023 12:22 pm FINDINGS There is a recurrent small left pleural effusion with mild left basilar atelectasis. No pneumothorax is seen. The cardiomediastinal silhouette is stable in appearance. The pulmonary vasculature is within normal limits. The bones appear osteopenic. IMPRESSION Recurrent small left pleural effusion. Final Diagnosis A. Pleural cavity, Left, Cytology: Adequacy: Satisfactory for evaluation. Category: Benign. Interpretation: Reactive mesothelial cells, macrophages, and mixed inflammation with increased neutrophils. Other: The histological sections of the cellblock preparation show similar findings. Immunohistochemical stains were performed with adequate controls on block A1. WT1 and calretinin highlight mesothelial cells. MOC31, GATA3, p40, and TTF1 are negative. CD68 highlights abundant macrophages. The morphology and immunohistochemical profile support the above diagnosis. The findings are suggestive of aparapneumonic effusion. Clinical correlation is suggested. CT CHEST WO CONTRAST DATE and TIME: 12/11/2022 9:39 am IMPRESSION 1. New small collection of thin reticular and small nodular densities lateral right middle lobe likely from bronchiolitis. New small collection of thin reticular and small nodular densities posteriorright lower lobe likely from bronchiolitis. 2. No suspicious nodules. Assessment Left Pleural effusion (Primary), resolved Paroxysmal atrial fibrillation (HCC) Gastroesophageal reflux disease with esophagitis, unspecified whether hemorrhage Sarcoidosis History of tongue cancer Hx of breast cancer Status post insertion of percutaneous endoscopic gastrostomy (PEG) tube (HCC) Follow Up: Return in about 6 months (around 06/06/2024) for Clinic Visit. 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 Maintain physical activity status Call with change in respiratory symptoms status Clinic f/u 6 months Ger Lu MD Subjective CC: Chief Complaint Patient presents with Follow Up Here return pulm. No complaints. HPI: Nursing Notes: Lolita Ball LPN 12/05/23 0753 Signed Chief Complaint Patient presents with Follow Up Here return pulm. No complaints. Interm History/Respiratory Symptoms Cough: yes-no phlegm. Hemoptysis: no Sinus Symptoms: congestion and drainage. Hospitalizations: 07/17-07/27-aspiration pneumonia,severe sepsis, acute resp failure ED Trips: 07/17- via ambulance Triggers: no Nocturnal: sleeps on 2 pillows at night CPAP/BiPAP/O2: no DME Supplier: no Flu Vaccine: 2022 Pneumovax: 2019 Prevnar: 2013 COVID 19: x4. MMRC Dyspnea Scale = 1 (I get short of breath when hurrying on level ground or walking up a slight hill) Objective Filed Vitals: 12/05/23 0746 12/05/23 0747 BP: 120/62 Pulse: 63 Resp: 16 Temp: 35.7 C (96.2 F) TempSrc: Tympanic SpO2: 98% 97% Weight: 48.5 kg (107 lb) Height: 1.651 m (5' 5") Exam: Const: No signs of acute distress present. Head/Face: Normal on inspection. Eyes: Conjunctivae clear. Pupils equal round and reactive to light. ENMT: Oropharynx: No erythema, exudate or masses. Posterior pharynx is normal. Neck: Supple and symmetric. Resp: Respiratory examination as outlined above CV: Rate is regular. Rhythm is regular. No heart murmur appreciated. Extremities: No edema of the lower limbs bilaterally. Skin: Skin is warm and dry. Neuro: Coordination normal. No involuntary movement. Psych: Patient's attitude is cooperative. Mood is normal. Affect is normal. Tests reviewed with the patient: XR CHEST 2 VIEWS Result Date: 11/13/2023 IMPRESSION No active disease. XR CHEST 2 VIEWS Result Date: 09/18/2023 IMPRESSION Persistent small left pleural effusion. XR CHEST 2 VIEWS Result Date: 09/05/2023 IMPRESSION Recurrent small left pleural effusion. CT ABD/PELVIS WO IV/ORAL CONTRAST Result Date: 09/03/2023 IMPRESSION 1. Small nonobstructive calcified bilateral nephrolithiasis. No ureterolithiasis or hydronephrosis. 2. New small left pleural effusion. XR CHEST 1 VIEW Result Date: 08/27/2023 IMPRESSION: 1. No pneumothorax status post thoracentesis 2. Small left pleural effusion and left basilar consolidation 3. Chronic changes of the lung parenchyma similar to previous. THIS DOCUMENT HASBEEN ELECTRONICALLY SIGNED BY BASILIO ARCHER MD XR CHEST 2 VIEWS Result Date: 08/23/2023 IMPRESSION Moderate-sized left pleural effusion with left lower lobe atelectasis. A superimposed infectious etiology would be difficult to exclude. In compliance with act 112, the ARUNA (radiology deportation officer) was contacted to invoke system generated communication of the patient's results. CT ABD/PELVIS WO IV/ORAL CONTRAST Result Date: 06/30/2023 IMPRESSION Bilateral nephrolithiasis. Available Radiologic data was reviewed by me in PACS. The images were shown to the patient and findings were discussed with the patient. HOME MEDICATIONS: Levothyroxine Sodium 100 MCG Oral Tablet (Levoxyl) Magic Mouthwash (Jbmlccbqh-Cdsqagup-Zfrewgpi) oral solution Apixaban 2.5 MG Oral Tablet (Eliquis) Carvedilol 6.25 MG Oral Tablet (Coreg) Fibersource HN Oral Liquid Acetaminophen Childrens 160 MG/5ML Oral Solution Denosumab (Prolia) subcut inj 60 mg ROS: No reported history of Hemoptysis, Hematemesis, Melena No reported history of Dysuria, Hematuria, Flank Pain No reported history of chronic headache, seizures No reported history of Fall or trauma . No reported history of recent change in weight or appetite. Past Medical History: Diagnosis Date BMI less [...] Laterality Date CHANGE G-TUBE, PERC W/O IMAGING ([facility] CUTTER/RN) 06/05/2016 EGD, FLEXIBLE, DIAGNOSTIC 11/27/2012 UPPER GI ENDOSCOPY DIAGNOSTIC performed by Jacob Santos MD at [facility] EGD, FLEXIBLE, DIAGNOSTIC 10/01/2013 eso stricture, sm HH/ESOPHAGOGASTRODUODENOSCOPY (EGD), FLEXIBLE, TRANSORAL, DIAGNOSTIC performed byJacob Santos MD at ENDOSCOPY [facility] EGD, FLEXIBLE, DIAGNOSTIC 02/05/2014 ESOPHAGOGASTRODUODENOSCOPY (EGD), FLEXIBLE, TRANSORAL, DIAGNOSTIC performed by Adrian Muñoz MD at [facility]OSCOPY [facility] EGD, FLEXIBLE, DIAGNOSTIC N/A 03/18/2014 ESOPHAGOGASTRODUODENOSCOPY (EGD), FLEXIBLE, TRANSORAL, DIAGNOSTIC performed by Adrian Muñoz MD at [facility]OS[facility] EGD, FLEXIBLE, DIAGNOSTIC 07/28/2014 ESOPHAGOGASTRODUODENOSCOPY (EGD), FLEXIBLE, TRANSORAL, DIAGNOSTIC performed by Adrian Muñoz MD at ENDOSCOPY [facility] EGD, FLEXIBLE, DIAGNOSTIC 12/25/2014 ESOPHAGOGASTRODUODENOSCOPY (EGD), FLEXIBLE, TRANSORAL, DIAGNOSTIC performed by Isaiah Sen MD at ENDOSCOPY [facility] EGD, FLEXIBLE, DIAGNOSTIC 05/13/2015 PEG placement/inpt [facility] EGD, FLEXIBLE, DIAGNOSTIC 05/10/2015 radiation changes, eso web, HH/inpt [facility] ESOPHAGOSCOPY, FLEXIBLE, TRANSENDOSCOPIC DILATION <30MM 07/09 [place] with dilatation PARTIAL MASTECTOMY 04/07/05 Left PM/SLNB at [facility] Dr. Sharma THORACOTOMY WITH EXPLORATION 1974 Thoracotomy,with biopsy Social History Socioeconomic History Marital status: Spouse name: Cristobal Number of children: 2 Tobacco Use Smoking status: Never Smokeless tobacco: Never Vaping Use Vaping status: Never Used Substance and Sexual Activity Alcohol use: No Drug use: No Sexual activity: Yes Partners: Male Other Topics Concern Special Diet Yes Comment: milk twice daily Exercise Yes Comment: walks Self-Exams Yes Comment: occ Social Determinants of Health Financial Resource Strain: Low Risk (11/30/2023) Financial Resource Strain Do you have any trouble paying for your medications, or do you think you might in the future? (Adult - for ages 18 years and over): No Food Insecurity: No Food Insecurity (11/30/2023) Food Insecurity Do you need food for this week? (Adult - for ages 18 years and over): No Transportation Needs: No Transportation Needs (11/30/2023) Transportation Needs Do you have trouble getting a ride to medical visits or work? (Adult - for ages 18 years and over):Never True Has lack of transportation kept you from medical appointments, meetings, work, or from getting things needed for daily living? Check all that apply. (Adult - for ages 18 years and over): No Social Connections: Socially Integrated (11/30/2023) Social Connections How often do you feel lonely or isolated from those around you? (Adult - for ages 18 years and over): Never Housing Stability: Low Risk (11/30/2023) Housing Stability Do you currently live in a residential or have no steady place to sleep at night? (Adult - for ages 18 years and over): No Do you think you are at risk of becoming homeless? (Adult - for ages 18 years and over): No Are you homeless or worried that you might be in the future? (Adult - for ages 18 years and over): No Family History Problem Relation Name Age of Onset Cancer Mother Colon Thyroid Disorder Mother Diabetes Father Heart Disorder Father Hypertension Father Stroke Father Review of patient's allergies indicates: Allergen Reactions Penicillins rash and given shot as a child, has tolerated augmentin ok as well as cephalosporin documented in this encounter Nursing Notes * Lolita Ball LPN - 12/05/2023 7:48 AM EDT Chief Complaint Patient presents with Follow Up Here return pulm. No complaints. Interm History/Respiratory Symptoms Cough: yes-no phlegm. Hemoptysis: no Sinus Symptoms: congestion and drainage. Hospitalizations: 07/17-07/27-aspiration pneumonia,severe sepsis, acute resp failure ED Trips: 07/17- via ambulance Triggers: no Nocturnal: sleeps on 2 pillows at night CPAP/BiPAP/O2: no DME Supplier: no Flu Vaccine: 2022 Pneumovax: 2019 Prevnar: 2013 COVID 19: x4. MMRC Dyspnea Scale = 1 (I get short of breath when hurrying on level ground or walking up a slight hill) documented in this encounter Plan of Treatment Upcoming Encounters Date Type Department Care Team (Late st Contact Info) Description 01/03/2024 1:45 PM EDT Office Visit Gynecology/Obstetrics Prashanth Ambrocio [address] [place] [address] Balbina Naik CRNP [address] [place] [address] 01/14/2024 1:30 PM EDT Nurse Only Rheumatology [address] [place] [address] Pf, Nurse Rheum [address] [place] [address] [place] [address] 04/02/2024 11:00 AM EST Office Visit Cardiology, [facility] [address] [facility] [place] [address] Allan Siddiqui PA-C [address] [facility] [place] [address] 06/03/2024 11:20 AM EST Office Visit Family Practice [facility] [address] [facility] [place] [address] Aayush Medrano MD [address] [facility] [place] [address] 06/09/2024 10:00 AM EST Office Visit Pulmonary Medicine, [facility] [address] [facility] [place] [address] Ger Lu MD [address] [place] [address] 07/09/2024 11:30 AM EDT Office Visit Urology, [facility] [address] [facility] [place] [address] Spencer Kumari MD [address] [place] [id number] Health Maintenance Due Date Last Done Comments [...] D LEVEL ONCE IN A LIFETIME-USE SMARTSET# [id number] Completed 06/27/2023, 01/10/2021, 09/25/2008 HPV (Gardasil) Vaccine [...] as of this encounter Visit Diagnoses Diagnosis Pleural effusion- Primary Unspecified pleural effusion documented in this encounter Advance Directives Healthcare Agents on File Name Relationship Healthcare Agent Relationshi p Communication Cristobal Jackson Spouse Health Care Repr esentative (appointed verbally by patient or by statute hierarchy) Care Teams Airplane Electrician Relationship Specialty Start Date End Date Aayush Medrano MD [address] [place] [address] PCP - General Family Medicine 08/23/23 documented as of this encounter
--- OUTSIDE RECORDS SUMMARY | 2024-01-16 10:12 | External Medical Summary | Summary of Care ---
Author Name Unknown Organization [facility] Address [address] [place] [address] Phone [phone] Care Team Providers Care Supervisor Abattoir Name Role Phone Aayush Medrano MD Primary Care Provider Reason for Visit * Reason Comments Follow Up Pt here for a 6m f/u . Would like to have lungs checked. Encounter Details Date Type Department Care Team (Late st Contact Info) Description 11/27/2023 11:00 AM EDT Office [facility] [place] [address] Aayush Medrano MD [address] [facility] [place] [address] Risk and functional assessment*; Kyphoscoliosis; Acquired hypothyroidism; Recurrent left pleural effusion; Cough, unspecified type; Paroxysmal atrial fibrillation (HCC) Allergies Active Allergy Reactions Criticality Noted Date Comments Penicillins 10/25/1999 rash and given shot as a child, has tolerated augmentin ok as well as cephalosporin documented as of this encounter (statuses as of 11/27/2023) Medications Medication Sig Dispensed Refills Start Date End Date Status Acetaminophen Childrens 160 MG/5ML Oral Solution Administer into feeding tube 640 mg 4 times a day as needed for Pain. Active Fibersource HN Oral LiquidIndications:Sev ere protein-calorie malnutrition (HCC) Administer 6 cans daily as directed via G tube via bolus syringe [id number] mL 11 07/11/2023 Active Apixaban 2.5 MG Oral Tablet (Eliquis) Administer 1 Tablet into G tube in the morning and 1 Tablet before bedtime. 60 Tablet 3 08/27/2023 Active Carvedilol 6.25 MG Oral Tablet (Coreg) Administer 1 Tablet into G tube 2 times a day with morning and evening meals. 60 Tablet 3 08/27/2023 Active Magic Mouthwash (Jujifqgxv-Uzwkbtgq-W ystatin) oral solution Swish and spit 15 [...] inj 60 mgIndications:Senile osteoporosis 60 mg SC [id number] 07/11/2023 07/05/2024 Active documented as of this encounter (statuses as of 11/27/2023) Active Problems Problem Noted Date Diagnosed Date [...] as of this encounter (statuses as of 11/27/2023) Resolved Problems Problem Noted Date Diagnosed Date [...] as of this encounter (statuses as of 11/27/2023) Immunizations Name Administration Dates Next Due COVID-19 mRNA, LNP-s, No Pre serve, 2-Dose Series (Stick and Play) 03/16/2021,08/12/2020,07/22/2020 Covid-19, Mrna, Lnp-s, Pf, B ivalent, 30 Mcg, IM, 12 yrs and above (Stick and Play) 02/24/2022 Pneumococcal Conjugate Vacc, 13 Valent (Prevnar) [...] the money to buy more. Never true 09/18/19 24 Within the past 12 months, t he food you bought just didn't last and you didn't have money to get more. Never true 09/18/2023 Childcare Answer Date Recorded Do you feel overwhelmed with taking care of a child, family member or friend? No 09/18/2023 Does your family need help f inding childcare? (Household - for ages 0-17 years) Not on file 09/18/2023 Clothing Answer Date Recorded Have you been unable to get clothing when it was really needed? No 09/18/2023 Is your family able to get c lothes or diapers when needed? (Household - for ages 0-17 years) Not on file 09/18/2023 Personal Safety Answer Date Recorded Do you feel unsafe or have concerns for your saf ety? No 09/18/2023 Do you have concerns for you r family's safety? (Household - for ages 0-17 years) Not on file 09/18/2023 Utilities Answer Date Recorded Do you have trouble paying y our heating, water, or electric bill? No 09/18/2023 Is your family able to pay t he heat, water, or electric bill? (Household - for ages 0-17 years) Not on file 09/18/2023 Does your family have access to good internet? (Household - for ages 0-17 years) Not on file 09/18/2023 Employment Status Answer Date Recorded Are you unemployed or without regular income? No 09/18/2023 Does the household have a re gular source of income? (Household - for ages 0-17 years) Not on file 09/18/2023 Social Connections Answer Date Recorded How often do you feel lonely or isolated from th ose around you? Never 09/18/2023 Financial Resource Strain Answer Date R ecorded Do you have any trouble payi ng for your medications, or do you think you might in the future? No 09/18/2023 Does your family have troubl e paying for medicine? (Household - for ages 0-17 years) Not on file 09/18/2023 Transportation Needs Answer Date Record ed READ ONLY Do you have troubl e getting a ride to medical visits or work? Never True 09/18/2023 Does your family have a hard time getting a ride to doctors visits? (Household - for ages 0-17 years) Not on file 09/18/2023 Has lack of transportation k ept you from medical appointments, meetings, work, or from getting things needed for daily living? Check all that apply. (Adult - for ages 18 years and over) Not on file 09/18/2023 Do you (or your family) have trouble finding or paying for a ride (transportation)? (Household - for ages 0-17 years) Not on file 09/18/2023 Housing Stability Answer Date Recorded Do you currently live in a s helter or have no steady place to sleep at night? No 09/18/2023 READ ONLY Do you think you a re at risk of becoming homeless? No 09/18/2023 Does your family worry about paying for your home or becoming homeless? (Household - for ages 0-17 years) Not on file 0 09/18/2023 Are you homeless or worried that you might be in the future? (Adult - for ages 18 years and over) Not on file Are you (or your family) juanpablo eless or worried that you might be in the future? (Household - for ages 0-17 years) Not on file Food Insecurity Answer Date Recorded Do you need food for this week? No 09/18/2023 Are you able to get enough f ood for your family? (Household - for ages 0-17 years) Not on file 09/18/2023 Does your family need food t his week? (Household - for ages 0-17 years) Not on file 09/18/2023 Do you always have enough fo od for your family? (Household - for ages 0-17 years) Not on file 09/18/2023 Sex and Gender Information Value Date Recorded Sex Assigned at Female 09/18/2023 9:14 AM EDT Gender Identity Female 09/18/2023 9:14 AM EDT Sexual Orientation Straight 09/18/2023 9: 14 AM EDT Job Start Date Occupation Industry Not on file Not on file Not on file documented as of this encounter Last Filed Vital Signs Vital Sign Reading Time Taken Comments Blood Pressure 114/62 11/27/2023 10:14 AM EDT Pulse 61 11/27/2023 10:14 AM EDT Temperature 36.8 C (98.2 F) 11/27/2023 10:14 AM E DT Respiratory Rate 16 11/27/2023 10:14 AM EDT Oxygen Saturation 99% 11/27/2023 10:14 AM EDT Inhaled Oxygen Concentration - - Weight 48.5 kg (107 lb) 11/27/2023 10:14 AM EDT Height 165.1 cm (5' 5") 11/27/2023 10:14 AM EDT Body Mass Index 17.81 11/27/2023 10:14 AM EDT documented in this encounter Functional [...] this encounter Patient Instructions * Patient Instructions* Sallie SmithLEE - 11/27/2023 10:23 AM EDT Patient Instructions - Fall Prevention (This education is for all patients over 65 regardless of symptoms) Remember to take your current medications as prescribed. In order to prevent falls, you are encouraged to: Exercise Utilize assistive/adaptive devices Avoid multifocal lenses when walking Avoid hazards in home Maintain a regular toileting schedule Any questions please contact our office. Preventing Falls in the Home (This education is for all patients over 65 regardless of symptoms) As you get older, falls are more likely. Thats because your reaction time slows. Your muscles and joints may also get stiffer, making them less flexible. Illness, medications, and vision changes can also affect your balance. A fall could leave you unable to live on your own. To make your home safer, follow these tips: Floors Put nonskid pads under area rugs Remove throw rugs Replace worn floor coverings Tack carpets firmly to each step on carpeted stairs. Put nonskid strips on the edges of uncarpeted stairs Keep floors and stairs free of clutter and cords Arrange furniture so there are clear pathways Clean up any spills right away Bathrooms Install grab bars in the tub or shower Apply nonskid strips or put a nonskid rubber mat in the tub or shower Sit on a bath chair to bathe Use bathmats with nonskid backing Lighting Keep a flashlight in each room Put a nightlight along the pathway between the bedroom and the bathroom Raina Patient Education Copyright 2009 - 2010 Raina except where otherwise noted Preventing Falls: Exercises to Improve Balance, Flexibility, Strength, and Staying Power (This education is for all patients over 65 regardless of symptoms) Certain types of exercises may help make you less likely to fall. Try the ones below. Or do other exercises that your healthcare provider suggests. Depending on your health, you may need to start slowly. Dont let that stop you. Even small amounts of exercise can help you. Be sure to talk to yourhealthcare provider before starting any exercise program. Improve Balance Many types of exercise can help improve balance. Kaden chi and yoga are good examples. Heres another one to try. You can do it anytime and almost anywhere. Stand next to a counter or solid support. Push yourself up onto your tiptoes. Hold for 5 seconds. If you start to lose your balance, hold on to the counter. Rest and repeat 5 times. Work up to holding for 20 to 30 seconds, if you can. Increase Flexibility Being more flexible makes it easier for you to move around safely. Try exercises like the seated hamstring stretch. Sit in a chair and put one foot on a stool. Straighten your leg and reach with both hands down either side of your leg. Reach as far down your leg as you can. Hold for about 20 seconds. Go back to the starting position. Then repeat 5 times. Switch legs. Build Strength Resistance exercises help build strength. You can do them without equipment. Or you can use weights, elastic bands, or special machines. One such exercise is called the biceps curl. You can hold a 1 pound weight or even a can of soup. Do this exercise at least 3 times a week. Strive for everyday. Sit up straight in a chair. Keep your elbow close to your body and your wrist straight. Bend your arm, moving your hand up to your shoulder. Then slowly lower your arm. Repeat 5 times. Switch to the other arm. Build Your Staying Power Aerobic exercises make your heart and lungs stronger so you can keep moving longer. Walking and swimming are two of the best types of exercises you can do. Using a stationary bike is great, too. Find an aerobic exercise that you enjoy. Start slowly and build up. Even 5 minutes is helpful. Aimfor a goal of 30 minutes, at least 3 times a week. You dont have to do 30 minutes in one session. Break it up and walk a little throughout the day. More Helpful Tips Start easy. Slowly work up to doing more. Talk with your healthcare provider about the best exercises for you. Call senior centers or health clubs about exercise programs. If needed, have a family member watch you walk every so often to check your stability. Exercise with a friend. Choose an activity you both enjoy. Try exercises that you can do anytime, anywhere. Here are two examples. Have someone with you when you first try these: Practice walking by placing one foot right in front of the other. Stand up and sit down 10 times. Repeat this throughout the day. Gremln Patient Education Copyright 2008 Gremln except where otherwise noted. Preventing Falls: Moving Safely Using a Cane or Walker (This education is for all patients over 65 regardless of symptoms) Keep the cane away from your feet so you dont trip. A walking aid, such as a cane or walker, can help you stay more independent and avoid falls. Remember to keep your walking aid within easy reach when youre in a chair or in bed. And learn how to use it safely so you dont injure yourself. Using a Cane If you have a stronger side, hold the cane on that side. Get your balance. Move the cane and your weaker leg forward. Support your weight on both the cane and your weaker side. Step with your stronger leg. Start again from step 1. If youre using a folding walker, be sure you know how to lock it open. Check that its locked open before each use. Using a Walker Roll the walker (or lift it, if youre using one without wheels) forward about 12 inches. Step forward with your weaker leg first. Use the walker to help keep your balance. Bring your other foot forward to the center of the walker. Start again from step 1. Helpful Tips Check with your healthcare provider about the right walking aid to use. Ask about a walker with a seat attached. Check the tips of your cane or walker to make sure they have nonskid covers. Move slowly from room to room. Dont mccollum. Sit down to get dressed. Use a yoav pack or backpack to keep your hands free. Get help for jobs that mean climbing, even on a stepstool. Gremln Patient Education Copyright 2008 - 2010 Gremln except where otherwise noted. Urinary Incontinence Plan of Care Documentation: (This education is for all patients over 65 regardless of symptoms) Current medications reconciled. Patient encouraged to: Practice kegal exercises Provide education materials Use the restroom every 2 hours throughout the day Limit caffeine, alcohol, spicy foods and acidic foods Keep a bladder diary Limit fluid intake 3-4 hours before bed Lose weight Prevent constipation Take fluid pills at a time when you can get to the bathroom quickly Control sugar better if diabetic Limit fluid intake to 60 oz. per day Wear support stockings (TEDs)if you have edema Sallie Smith LPN 11/27/2023 Kegel Exercises Kegel exercises dont require special clothing or equipment. Theyre easy to learn and simple to do. And if you do them right, no one can tell youre doing them, so they can be done almost anywhere. Your doctor, nurse, or physical therapist can answer any questions you have and help you get started. A Weak Pelvic Floor The pelvic floor muscles may weaken due to aging, and vaginal childbirth, injury, surgery, chronic cough, or lack of exercise. If the pelvic floor is weak, your bladder and other pelvic organs may sag out of place. The urethra may also open too easily and allow urine to leak out. Kegel exercises can help you strengthen your pelvic floor muscles so they can better support the pelvic organs and control urine flow. How Kegel Exercises Are Done Try each of the Kegel exercises described below. When youre doing them, try not to move your leg, buttock, or stomach muscles. While youre urinating, try to stop the flow of urine. Start and stop it as often as you can. Contract as if you were stopping your urine stream, but do it when youre not urinating. Tighten your rectum as if trying not to pass gas. Contract your anus, but dont move your buttocks. Helpful Hints Do your Kegels as often as you can. The more you do them, the faster youll feel the results. Pick an activity you do often as a reminder. For instance, do your Kegels every time you sit down. Tighten your pelvic floor before you sneeze, get up from a chair, cough, laugh, or lift. This protects your pelvic floor from injury and can help prevent urine leakage. Try to hold each Kegel for a slow count to five. You probably wont be able to hold them for thatlong at first, but keep practicing. It will get easier as your pelvic floor gets stronger. Eventually, special weights that you place in your vagina may be recommended to help make your Kegels even more effective. Raina Patient Education Copyright 2009 - 2010 Raina except where otherwise noted. Here are some helpful tips for your urinary incontinence: (This education is for all patients over 65 regardless of symptoms) Practice Kegel exercises Use the restroom every 2 hours throughout the day Limit caffeine, alcohol, spicy foods, and acidic foods Keep a bladder diary Limit fluid intake 3-4 hours before bed Lose weight Prevent constipation Take fluid pills at a time when can get to the bathroom quickly Control sugar better if diabetic Limit fluid intake to 60 oz. per day Any questions, please feel free to contact our office. documented in this encounter Progress Notes * Aayush Medrano MD - 11/27/2023 10:56 AM EDT Images from the original note were not included. History of Present Illness Sharmin Jackson is a 78 year old female that presents for Follow Up (Pt here for a 6m f/u. Would liketo have lungs checked. ) Patient's cough is resolved. Still short of breath with activity. No chest pains or tightness. She's still able to get around the house and do things just has to take breaks/rest. Mouth irritation much better. Rinse helped a lot. Going to bathroom ok. Still using her tube feeds regularly every night. PO liquid intake. Physical Exam BP 114/62 (BP Site: Right Arm, BP Position: Sitting, BP Cuff Size: Regular) | Pulse 61 | Temp 36.8 C (98.2 F) (Tympanic) | Resp 16 | Ht 1.651 m (5' 5") | Wt 48.5 kg (107 lb) | SpO2 99% | BMI 17.81 kg/m | BSA 1.49 m AAOx3 Normal affect NCAT/ Throat clear RRR Lungs CTABL No crackles Abd soft +BS Ext warm and well perfused No gross neuro deficits Antalgic gait pattern Kyphoscoliosis of C spine I have reviewed most recent labs None Assessment and Plan Kyphoscoliosis - severe and in my opinion the prime reason she is subjectively SOB. Acquired hypothyroidism - update TSH in 12/2023. Recurrent left pleural effusion - resolved Cough, unspecified type - much better with resolution of above Paroxysmal atrial fibrillation (HCC) - no recent exac or palpable paroxysms. Maintained on eliquis. No bleeding. Update labs Wrap-Up 6 months prn sooner Time: I spent a total of 40-54 minutes (exact time 42 mins) on the date of service in preparation, delivery, and documentation of the care provided to Sharmin Jackson excluding any time spent in the performance of separately billed services. documented in this encounter Miscellaneous Notes * Addendum Note - Aayush Medrano MD - 11/27/2023 11:42 AM EDTAddended by: AAYUSH MEDRANO on: 11/27/2023 11:42 AM Modules accepted: Orders documented in this encounter Plan of Treatment Upcoming Encounters Date Type Department Care Team (Late st Contact Info) Description 12/05/2023 7:45 AM EDT Imaging Radiology [facility] [address] [facility] [place] [address] 12/05/2023 8:00 AM EDT Office Visit Pulmonary Medicine, [facility] [address] [facility] [place] [address] Ger Lu MD [address] [facility] [place] [address] 01/03/2024 1:45 PM EDT Office Visit Gynecology/Obstetrics [facility] [address] [facility] [place] [address] Balbina Naik CRNP [address] [facility] [place] [address] 01/14/2024 1:30 PM EDT Nurse Only Rheumatology [address] [place] [address] Pf, Nurse Rheum [address] [place] [address] [place] [address] 04/02/2024 11:00 AM EST Office [facility], [facility] [place] [address] Allan Siddiqui PA-C [address] [place] [address] 06/03/2024 11:20 AM EST Office Visit [facility] Practice [facility] [address] [facility] [place] [address] Aayush Medrano MD [address] [place] [address] 07/09/2024 11:30 AM EDT Office Visit Urology, [facility] [address] [place] [address] Spencer Kumari MD [address] [facility] [place] [address] Scheduled Orders Name Type Priority Associated Diagnoses Orde r Schedule TSH WITH FREE T4 IF INDICATED Lab Routine Acquired hypothyroidism Expected: 11/27/2023 (Approximate), Expires: 11/26/2024 CBC WITH WBC DIFFERENTIAL Lab Routine Paroxysmal atrial fibrillation (HCC) Expected: 11/27/2023 (Approximate), Expires: 11/26/2024 COMPREHENSIVE METABOLIC PANEL Lab Routine Paroxysmal atrial fibrillation (HCC) Expected: 11/27/2023 (Approximate), Expires: 11/26/2024 Health Maintenance Due Date Last Done Comments Influenza Vaccine (FLU shot) (#1) 2023 03/12/2023, 01/05/2022, 02/15/2021, Additional history exists TSH 12/30/2023 12/29/2022, 10/28, 10/12/2022, Additional history exists Depression Screening 09/17/2024 09/18/2023 DXA Scan 05/21/2025 05/21/2023, 09/30, 01/26/2016, Additional history exists DTaP,Tdap,and Td Vaccines (3 - Td or Tdap) 10/24/2032 10/24/2022, 03/14/2006 Pneumococcal Vaccine: 65+ Years Completed 06/25/2018, 04/15/2018, 02/03/2014 Hepatitis C Screening Completed 12/16/2020, 018 COVID-19 Vaccine Discontinued 02/24/2022, , 08/12/2020, Additional history exists VITAMIN D LEVEL ONCE IN A LIFETIME-USE SMARTSET# [id number] Completed 06/27/2023, 01/10/2021, 09/25/2008 HPV (Gardasil) Vaccine [...] as of this encounter Visit Diagnoses Diagnosis Risk and functional assessment- Primary Screening for unspecified condition Kyphoscoliosis Scoliosis (and kyphoscoliosis), idiopathic Acquired hypothyroidism Unspecified hypothyroidism Recurrent left pleural effusion Unspecified pleural effusion Cough, unspecified type Paroxysmal atrial fibrillation (HCC) Atrial fibrillation documented in this encounter Advance Directives Healthcare Agents on File Name Relationship Healthcare Agent Relationshi p Communication Cristobal Jackson Spouse Health Care Repr esentative (appointed verbally by patient or by statute hierarchy) Care Teams Supervisor Abattoir Relationship Specialty Start Date End Date Aayush Medrano MD [address] [place] [address] PCP - General Family Medicine 08/23/23 documented as of this encounter
--- OUTSIDE RECORDS SUMMARY | 2024-01-16 10:13 | External Medical Summary | Summary of Care ---
Author Name Unknown Organization [facility] Address [address] [place] [address] Phone [phone] Care Team Providers Care Manager Asset Name Role Phone Aayush Medrano MD Primary Care Provider Reason for Visit * Reason Onset Date Comments Medication Problem 11/13/2023 Call Back 11/13/2023 Encounter Details Date Type Department Care Team (Late st Contact Info) Description 11/13/2023 Telephone Family Practice [facility] [address] [place] [address] Aayush Medrano MD [address] [place] [address] Medication Problem; Call Back Allergies Active Allergy Reactions Criticality Noted Date Comments Penicillins 10/25/1999 rash and given shot as a child, has tolerated augmentin ok as well as cephalosporin documented as of this encounter (statuses as of 11/15/2023) Medications Medication Sig Dispensed Refills Start Date End Date Status Acetaminophen Childrens 160 MG/5ML Oral Solution Administer into feeding tube 640 mg 4 times a day as needed for Pain. Active Levothyroxine Sodium 100 MCG Oral Tablet (Levoxyl)Indications :Acquired hypothyroidism Take 1 Tablet by mouth in the morning. (at least 30 min prior to breakfast or other meds). 30 Tablet 5 05/14/2023 Active Fibersource HN Oral LiquidIndications:Se yancy protein-calorie malnutrition (HCC) Administer 6 cans daily as directed via G tube via bolus syringe 08432 mL 11 07/11/2023 Active Apixaban 2.5 MG Oral Tablet (Eliquis) Administer 1 Tablet into G tube in the morning and 1 Tablet before bedtime. 60 Tablet 3 08/27/2023 Active Carvedilol 6.25 MG Oral Tablet (Coreg) Administer 1 Tablet into G tube 2 times a day with morning and evening meals. 60 Tablet 3 08/27/2023 Active Magic Mouthwash (Lidocaine-Benadryl- Nystatin) oral solution Swish and spit 15 mL 3 times a day as needed (oral irritation and mucositis). 450 mL 1 11/13/2023 Active Magic Mouthwash (Lidocaine-Benadryl- Nystatin) oral solution Swish and spit 15 mL 3 times a day as needed (oral irritation and mucositis). 450 mL 1 11/13/2023 Discontinue d(Refill) Hospital, Clinic, or Other Facility Administered Medication Ordered Dose Route Frequency Start Date End Date Status Denosumab (Prolia) subcut inj 60 mgIndications:Senile osteoporosis 60 mg SC [id number] 07/11/2023 07/05/2024 Active documented as of this encounter (statuses as of 11/15/2023) Active Problems Problem Noted Date Diagnosed Date Pleural effusion 08/27/2023 Paroxysmal atrial fibrillation 08/23/2023 [...] as of this encounter (statuses as of 11/15/2023) Resolved Problems Problem Noted Date Diagnosed Date [...] as of this encounter (statuses as of 11/15/2023) Immunizations Name Administration Dates Next Due COVID-19 mRNA, LNP-s, No Pre serve, 2-Dose Series (BitWine) 03/16/2021,08/12/2020,07/22/2020 Covid-19, Mrna, Lnp-s, Pf, B ivalent, 30 Mcg, IM, 12 yrs and above (BitWine) 02/24/2022 Pneumococcal Conjugate Vacc, 13 Valent (Prevnar) [...] encounter Miscellaneous Notes * Telephone Encounter - Heather Madison CPhT - 11/15/2023 8:31 AM EDT Pt spouse calling to check on status of alternative for magic mouthwash, nystatin on backorder. Caller can be reached at [phone]. Thank you, Heather Madison [facility] Service Department Manager III Centralized Clinical Pharmacy Services(CCPS) 11/15/23 * Telephone Encounter - Prosper Dill, driver trainer - 11/13/2023 5:01 PM EDT [facility] called requesting an alternative for Magic Mouthwash. Nystatin is on a national back order currently. Pharmacy cannot get ingredient to make mouthwash. Thank You, Prosper Dill [facility] Ammonia Technician II Centralized Clinical Pharmacy Services 11/13/2023, 5:02 PM * Telephone Encounter - Jose Ramon Andrews driver trainer - 11/13/2023 12:36 PM EDT Pt's calling back, he states that its ok to send script to [facility] Please reroute Rx to E [facility] Pending Prescriptions: Disp Refills Magic Mouthwash (Qftolrypi-Ypfbzbgn-Jjhpx*450 mL 1 Sig: Swish and spit 15 mL 3 times a day as needed (oral irritation and mucositis). Last Visit: 11/13/2023 (in office), Visit date not found (telemedicine) 11/27/2023 If no future appointments scheduled, and last appointment is greater than a year ago, please schedule patient for a follow-up appointment Last date the medication was ordered: 11/13/2023 Patient Phone Numbers Labs: Lab Results Component Value Date/Time CREAT 0.6 08/29/2023 03:23 PM CREAT 0.7 06/04/2019 03:21 PM POTASSIUM 4.4 08/29/2023 03:23 PM POTASSIUM 4.4 06/04/2019 03:21 PM TSH 0.71 12/29/2022 08:59 AM TSH 0.58 06/04/2019 03:21 PM LDLCALC 91 09/22/2022 10:06 AM LDLCALC 156 (H) 02/15/2001 08:37 AM LDLDIRECT 85 10/26/2015 02:20 PM ALT 25 09/22/2022 10:06 AM ALT 42 08/22/2016 12:00 AM ALT 21 10/26/2015 02:20 PM * Telephone Encounter - Ivett Bowens driver trainer - 11/13/2023 10:47 AM EDT [facility] calling to advise that they do not compound medications and cannot fill the magicmouthwash. They suggested the [facility] . Reached out to patient and left message. When patient calls in please ask them if its ok to send Rxto [facility] . Thanks, Ivett Bowens Service Department Manager III Centralized Clinical Pharmacy Services (CCPS) 11/13/2023,10:50 AM documented in this encounter Plan of Treatment Upcoming Encounters Date Type Department Care Team (Late st Contact Info) Description 11/27/2023 7:45 AM EDT Imaging Radiology [facility] 1st [facility] [address] [facility] [place] [address] 11/27/2023 8:20 AM EDT Office Visit Pulmonary Medicine, [facility] [address] [facility] [place] [address] Ger Lu MD [address] [place] [address] 11/27/2023 11:00 AM EDT Office Visit Family Practice [facility] [address] [facility] [place] [address] Aayush Medrano MD 132 [facility] [place] [address] 01/03/2024 1:45 PM EDT Office Visit Gynecology/Obstetrics [facility] [address] [facility] [place] [address] Balbina Naik CRNP 132 [facility] [place] [address] 01/14/2024 1:30 PM EDT Nurse Only Rheumatology [address] [place] [address] Pf, Nurse Rheum [address] [place] [address] [place] [address] 04/02/2024 11:00 AM EST Office Visit Cardiology, [facility] [address] [facility] [place] [address] Allan Siddiqui PA-C 132 [facility] [place] [address] 07/09/2024 11:30 AM EDT Office Visit Urology, [facility] [address] [facility] [place] [address] Spencer Kumari MD [address] [place] [address] Health Maintenance Due Date Last Done Comments [...] D LEVEL ONCE IN A LIFETIME-USE SMARTSET# [id number] Completed 06/27/2023, 01/10/2021, 09/25/2008 HPV (Gardasil) Vaccine [...] or by statute hierarchy) Care Teams Manager Asset Relationship Specialty Start Date End Date Aayush Medrano MD [address] [place] [address] PCP - General Family Medicine 08/23/23 documented as of this encounter
--- OUTSIDE RECORDS SUMMARY | 2024-01-16 10:13 | External Medical Summary | Summary of Care ---
Author Name Unknown Organization [facility] Address [address] [place] [address] Phone [phone] Care Team Providers Care Frit Mixer And Burner Name Role Phone Aayush Medrano MD Primary Care Provider Reason for Visit * Reason Onset Date Comments Medication Problem 11/13/2023 Call Back 11/13/2023 Encounter Details Date Type Department Care Team (Late st Contact Info) Description 11/13/2023 Telephone Family Practice [facility] [address] [place] [address] Aayush Medrano MD [address] [place] [address] Medication Problem; Call Back Allergies Active Allergy [...] directed via G tube via bolus syringe 38816 mL 11 07/11/2023 Active Apixaban 2.5 MG [...] inj 60 mgIndications:Senile osteoporosis 60 mg SC [id number] 07/11/2023 07/05/2024 Active documented as of this [...] mRNA, LNP-s, No Pre serve, 2-Dose Series (Reality Jockey) 03/16/2021,08/12/2020,07/22/2020 Covid-19, Mrna, Lnp-s, Pf, B ivalent, 30 Mcg, IM, 12 yrs and above (Reality Jockey) 02/24/2022 Pneumococcal Conjugate Vacc, 13 Valent (Prevnar) [...] encounter Miscellaneous Notes * Telephone Encounter - Sallie Smith LPN - 11/15/2023 12:19 PM EDT Called and spoke with pt. Relayed information to pt. Pt voiced understanding. * Telephone Encounter - Aayush Medrano MD - 11/15/2023 8:36 AM EDT Can use Orajel or biotene (both OTC). Daryl Lovett I was unaware of nystatin being backordered of all things. Her xray was ok. * Telephone Encounter - Heather Madison CPhT - 11/15/2023 8:31 AM EDT Pt spouse calling to check on status of alternative for magic mouthwash, nystatin on backorder. Caller can be reached at [phone]. Thank you, Heather Madison [facility] Aerospace Products Sales Engineer III Centralized Clinical Pharmacy Services(CCPS) 11/15/23 * Telephone Encounter - Prosper Dill automotive heavy mechanic - 11/13/2023 5:01 PM EDT [facility] Mouth[facility]. Nystatin is on a national back order currently. Pharmacy cannot get ingredient to make mouthwash. Thank You, Prosper Dill [facility] Fiscal Manager II Centralized Clinical Pharmacy Services 11/13/2023, 5:02 PM * Telephone Encounter - Jose Ramon Andrews automotive heavy mechanic - 11/13/2023 12:36 PM EDT Pt's calling back, he states that its ok to send script to [facility] Please reroute Rx to E [facility]- [place]. Pending Prescriptions: Disp Refills Magic Mouthwash (Zaccgomya-Fqiavigz-Egtbe*450 mL 1 Sig: Swish and spit 15 [...] PM * Telephone Encounter - Ivett Bowens automotive heavy mechanic - 11/13/2023 10:47 AM EDT [facility] calling to advise that they do not compound medications and cannot fill the magicmouthwash. They suggested the [facility] . Reached out to patient and left message. When patient calls in please ask them if its ok to send [facility] . Thanks, Ivett Bowens Aerospace Products Sales Engineer III Centralized Clinical Pharmacy Services (CCPS) 11/13/2023,10:50 AM documented in this encounter Plan of Treatment Upcoming Encounters Date Type Department Care Team (Late st Contact Info) Description 11/27/2023 7:45 AM EDT Imaging Radiology [facility] 1st Floor, [place] [address] [facility] [place] [address] 11/27/2023 8:20 AM EDT Office Visit Pulmonary Medicine, [facility] 132 [facility] [place] [address] Ger Lu MD [address] [place] [address] 11/27/2023 11:00 AM EDT Office Visit Family Practice [facility] 132 [facility] [place] [address] Aayush Medrano MD [address] [place] [address] 01/03/2024 1:45 PM EDT Office Visit Gynecology/Obstetrics [facility] [place] [address] Balbina Naik CRNP 132 [facility] [place] [address] 01/14/2024 1:30 PM EDT Nurse Only Rheumatology [address] [place] [address] Pf, Nurse Rheum [address] [place] [address], [place] [address] 04/02/2024 11:00 AM EST Office Visit Cardiology, [facility] 132 [facility] [place] [address] Allan Siddiqui PAWojciech [address] [place] [address] 07/09/2024 11:30 AM EDT Office Visit Urology, [facility] 132 [facility] [place] [address] Spencer Tineo MD [address] [place] [address] Health Maintenance Due Date Last Done Comments [...] D LEVEL ONCE IN A LIFETIME-USE SMARTSET# [id number] Completed 06/27/2023, 01/10/2021, 09/25/2008 HPV (Gardasil) Vaccine [...] patient or by statute hierarchy) Care Teams Frit Mixer And Burner Relationship Specialty Start Date End Date Aayush Medrano MD [address] [place] [address] PCP - General Family Medicine 08/23/23 documented as of this encounter
--- OUTSIDE RECORDS SUMMARY | 2024-01-16 10:13 | External Medical Summary | Summary of Care ---
Author Name Unknown Organization [facility] Address [address] [facility] [place] [address] Phone [phone] Care Team Providers Care Optical Goods Drill Operator Name Role Phone Aayush Medrano MD Primary Care Provider Encounter Details Date Type Department Care Team (Late st Contact Info) Description 11/23/2023 Orders Only PATIENT PORTAL DO NOT DELETE THIS DEPT USED BY [place] [id number] Allergies Active Allergy Reactions Criticality Noted Date Comments Penicillins 10/25/1999 rash and given shot as a child, has tolerated augmentin ok as well as cephalosporin documented as of this encounter (statuses as of 11/23/2023) Medications Medication Sig Dispensed Refills Start Date End Date Status Acetaminophen Childrens 160 MG/5ML Oral Solution Administer into feeding tube 640 mg 4 times a day as needed for Pain. Active Fibersource HN Oral LiquidIndications:Sev ere protein-calorie malnutrition (HCC) Administer 6 cans daily as directed via G tube via bolus syringe 34450 mL 11 07/11/2023 Active Apixaban 2.5 MG Oral Tablet (Eliquis) Administer 1 Tablet into G tube in the morning and 1 Tablet before bedtime. 60 Tablet 3 08/27/2023 Active Carvedilol 6.25 MG Oral Tablet (Coreg) Administer 1 Tablet into G tube 2 times a day with morning and evening meals. 60 Tablet 3 08/27/2023 Active Magic Mouthwash (Iswfdnjbk-Fvmmtfig-I ystatin) oral solution Swish and spit 15 [...] inj 60 mgIndications:Senile osteoporosis 60 mg SC [id number] 07/11/2023 07/05/2024 Active documented as of this encounter (statuses as of 11/23/2023) Active Problems Problem Noted Date Diagnosed Date [...] as of this encounter (statuses as of 11/23/2023) Resolved Problems Problem Noted Date Diagnosed Date [...] as of this encounter (statuses as of 11/23/2023) Immunizations Name Administration Dates Next Due COVID-19 mRNA, LNP-s, No Pre serve, 2-Dose Series (OneTag) 03/16/2021,08/12/2020,07/22/2020 Covid-19, Mrna, Lnp-s, Pf, B ivalent, 30 Mcg, IM, 12 yrs and above (OneTag) 02/24/2022 Pneumococcal Conjugate Vacc, 13 Valent (Prevnar) [...] 11:00 AM EDT Office Visit Family Practice [facility] [address] [address] Aayush Medrano MD [address] [place] [address] 12/05/2023 7:45 AM EDT Imaging [facility] [address] [place] [address] 12/05/2023 8:00 AM EDT Office Visit Pulmonary Medicine, [facility] [address] [place] [address] Ger Lu MD [address] [place] [address] 01/03/2024 1:45 PM EDT Office Visit Gynecology/Obstetrics [facility] 132 [facility] [place] [address] Balbina Naik CRNP 132 [facility] [place] [address] 01/14/2024 1:30 PM EDT Nurse Only Rheumatology [address] [place] [address] Pf, Nurse Rheum [address] [place] [address] [place] [address] 04/02/2024 11:00 AM EST Office Visit Cardiology, [facility] 132 [facility] [place] [address] Allan Siddiqui PA-C [facility] [address] 07/09/2024 11:30 AM EDT Office Visit Urology, [facility] 132 [facility] [place] [address] Spencer Kumari MD [address] [place] [id number] Health Maintenance Due Date Last Done Comments [...] D LEVEL ONCE IN A LIFETIME-USE SMARTSET# [id number] Completed 06/27/2023, 01/10/2021, 09/25/2008 HPV (Gardasil) Vaccine [...] patient or by statute hierarchy) Care Teams Optical Goods Drill Operator Relationship Specialty Start Date End Date Aayush Medrano MD [address] [place] [address] PCP - General Family Medicine 08/23/23 documented as of this encounter
--- OUTSIDE RECORDS SUMMARY | 2024-01-16 10:13 | External Medical Summary | Summary of Care ---
Author Name Unknown Organization [facility] Address [address] [place] [address] Phone [phone] Care Team Providers Care Unit Technician Name Role Phone Aayush Medrano MD Primary Care Provider Reason for Visit * Reason Onset Date Comments Medication Problem 11/13/2023 Call Back 11/13/2023 Encounter Details Date Type Department Care Team (Late st Contact Info) Description 11/13/2023 Telephone Family Practice [facility] [address] [place] [address] Aayush Medrano MD [address] [place] [address] Medication Problem; Call Back Allergies Active Allergy [...] directed via G tube via bolus syringe 70068 mL 11 07/11/2023 Active Apixaban 2.5 MG [...] inj 60 mgIndications:Senile osteoporosis 60 mg SC [id number] 07/11/2023 07/05/2024 Active documented as of this [...] mRNA, LNP-s, No Pre serve, 2-Dose Series ([employer] App) 03/16/2021,08/12/2020,07/22/2020 Covid-19, Mrna, Lnp-s, Pf, B ivalent, 30 Mcg, IM, 12 yrs and above ([employer] App) 02/24/2022 Pneumococcal Conjugate Vacc, 13 Valent (Prevnar) [...] Can use Orajel or biotene (both OTC). Sorry - I was unaware of nystatin being backordered of all things. Her xray was ok. * Telephone Encounter - Heather Madison CPhT - 11/15/2023 8:31 AM EDT Pt spouse calling to check on status of alternative for magic mouthwash, nystatin on backorder. Caller can be reached at [phone]. Thank you, Heather Madison [facility] Commercial Front Load Driver III Centralized Clinical Pharmacy Services(CCPS) 11/15/23 * Telephone Encounter - Prosper Dill supervisor sandblaster - 11/13/2023 5:01 PM EDT [facility] called requesting an alternative for Magic Mouthwash. Nystatin is on a national back order currently. Pharmacy cannot get ingredient to make mouthwash. Thank You, Prosper Dill [facility] Comber Operator II Centralized Clinical Pharmacy Services 11/13/2023, 5:02 PM * Telephone Encounter - Jose Ramon Andrews supervisor sandblaster - 11/13/2023 12:36 PM EDT Pt's calling back, he states that its ok to send script to [facility] Please reroute Rx to E [facility] Pending Prescriptions: Disp Refills Magic Mouthwash (Atnazlszq-Moivxzxv-Eaaic*450 mL 1 Sig: Swish and spit 15 [...] PM * Telephone Encounter - Ivett Bowens supervisor sandblaster - 11/13/2023 10:47 AM EDT [facility] calling to advise that they do not compound medications and cannot fill the magicmouthwash. They suggested the [facility] . Reached out to patient and left message. When patient calls in please ask them if its ok to send [facility] . Thanks, Ivett Bowens Commercial Front Load Driver III Centralized Clinical Pharmacy Services (CCPS) 11/13/2023,10:50 AM documented in this encounter Plan of Treatment Upcoming Encounters Date Type Department Care Team (Late st Contact Info) Description 11/27/2023 7:45 AM EDT Imaging Radiology [facility] [address] [place] [address] 11/27/2023 8:20 AM EDT Office Visit Pulmonary Medicine, [address] [place] [address] Ger Lu MD [address] [place] [address] 11/27/2023 11:00 AM EDT Office Visit Family Practice [facility] 132 [facility] [place] [address] Aayush Medrano MD [facility] [place] [address] 01/03/2024 1:45 PM EDT Office Visit Gynecology/Obstetrics [facility] [address] [facility] [place] [address] Balbina Naik CRNP 132 [facility] [place] [address] 01/14/2024 1:30 PM EDT Nurse Only Rheumatology [address] [place] [address] Pf, Nurse Rheum [address] [place] [address] [place] [address] 04/02/2024 11:00 AM EST Office Visit Cardiology, [facility] [address] [facility] [place] [address] Allan Siddiqui, PA-C 132 [facility] [place] [address] 07/09/2024 11:30 AM EDT Office Visit Urology, [facility] [address] [facility] [place] [address] Spencer Kumari MD [address] [place] [id number] Health Maintenance Due Date Last Done Comments [...] D LEVEL ONCE IN A LIFETIME-USE SMARTSET# [id number] Completed 06/27/2023, 01/10/2021, 09/25/2008 HPV (Gardasil) Vaccine [...] patient or by statute hierarchy) Care Teams Unit Technician Relationship Specialty Start Date End Date Aayush Medrano MD 132 [facility] [place] [address] PCP - General Family Medicine 08/23/23 documented as of this encounter
--- OUTSIDE RECORDS SUMMARY | 2024-01-16 10:13 | External Medical Summary | Summary of Care ---
Author Name Unknown Organization [facility] Address [address] [place] [address] Phone [phone] Care Team Providers Care Explosive Ordnance Manager Name Role Phone Aayush Hardwick MD Primary Care Provider Reason for Visit * Reason Onset Date Comments Medication Refill 11/19/2023 Encounter Details Date Type Department Care Team (Late st Contact Info) Description 11/19/2023 Refill Family Practice [facility] [address] [place] [address] Aayush Hardwick MD [address] [place] [address] Acquired hypothyroidism Allergies Active Allergy Reactions Criticality Noted Date Comments Penicillins 10/25/1999 rash and given shot as a child, has tolerated augmentin ok as well as cephalosporin documented as of this encounter (statuses as of 11/19/2023) Medications Medication Sig Dispensed Refills Start Date End Date Status Acetaminophen Childrens 160 MG/5ML Oral Solution Administer into feeding tube 640 mg 4 times a day as needed for Pain. Active Fibersource HN Oral LiquidIndications:Se yancy protein-calorie malnutrition (HCC) Administer 6 cans daily as directed via G tube via bolus syringe 88593 mL 11 07/11/2023 Active Apixaban 2.5 MG [...] or other meds). 90 Tablet 11/19/2023 Active Levothyroxine Sodium 100 MCG Oral Tablet (Levoxyl)Indications :Acquired hypothyroidism Take 1 Tablet by mouth in the morning. (at least 30 min prior to breakfast or other meds). 30 Tablet 5 05/14/2023 Discontinue d(Refill) Hospital, Clinic, or Other Facility Administered Medication Ordered Dose Route Frequency Start Date End Date Status Denosumab (Prolia) subcut inj 60 mgIndications:Senile osteoporosis 60 mg SC [id number] 07/11/2023 07/05/2024 Active documented as of this encounter (statuses as of 11/19/2023) Active Problems Problem Noted Date Diagnosed Date [...] as of this encounter (statuses as of 11/19/2023) Resolved Problems Problem Noted Date Diagnosed Date [...] as of this encounter (statuses as of 11/19/2023) Immunizations Name Administration Dates Next Due COVID-19 mRNA, LNP-s, No Pre serve, 2-Dose Series ([email or web address]) 03/16/2021,08/12/2020,07/22/2020 Covid-19, Mrna, Lnp-s, Pf, B ivalent, 30 Mcg, IM, 12 yrs and above ([email or web address]) 02/24/2022 Pneumococcal Conjugate Vacc, 13 Valent (Prevnar) [...] encounter Miscellaneous Notes * Telephone Encounter - Vic Kinsey [facility] - 11/19/2023 2:34 PM EDT Signed Prescriptions: Disp Refills Levothyroxine Sodium 100 MCG Oral Tablet (*90 Tab*0 Sig: Take 1 Tablet by mouth in the morning. (at least 30 min prior to breakfast or other meds).Authorizing Provider: AAYUSH HARDWICK User: VIC KINSEY * Telephone Encounter - Phuc Honeycutt, protective services social worker - 11/19/2023 9:16 AM EDT Did you pend patient's preferred pharmacy and medication before forwarding?yes Pharmacy: [facility] [address] [place] [address] [place] [address] Pending Prescriptions: Disp Refills Levothyroxine Sodium 100 MCG Oral Tablet *30 Tab*5 Sig: Take 1 Tablet by mouth in the morning. (at least 30 min prior to breakfast or other meds). Last Visit: 11/13/2023 (in office), Visit date not found (telemedicine) Next Visit: 11/27/2023 If no future appointments scheduled, and last appointment is greater than a year ago, please schedule patient for a follow-up appointment Last date the medication was ordered: 05/14/23 Is this request for a controlled substance?No Urine Drug Screen:No results found. However, due to the size of the patient record, not all encounters were searched. Please check Results Review for a complete set of results. Patient Phone Numbers Labs: Lab Results Component [...] 12:00 AM ALT 21 10/26/2015 02:20 PM documented in this encounter Plan of Treatment Upcoming Encounters Date Type Department Care Team (Late st Contact Info) Description 11/27/2023 7:45 AM EDT Imaging Radiology [facility] 1st [facility] [address] [place] [address] 11/27/2023 8:20 AM EDT Office Visit Pulmonary Medicine, [facility] [address] [facility] [place] [address] Ger Lu MD [address] [place] [address] 11/27/2023 11:00 AM EDT Office Visit [facility] [place] [address] Aayush Hardwick MD [address] [place] [address] 01/03/2024 1:45 PM EDT Office Visit Gynecology/Obstetrics [facility] [address] [place] [address] Balbina Naik CRNP [address] [place] [address] 01/14/2024 1:30 PM EDT Nurse Only Rheumatology [place] [address] [facility] [place] [address] Pf, Nurse Rheum [facility] [place] [address] 04/02/2024 11:00 AM EST Office Visit Cardiology, [facility] [address] [facility] [place] [address] Allan Siddiqui PA-C [address] [place] [address] 07/09/2024 11:30 AM EDT Office Visit Urology, [facility] [address] [place] [address] Spencer Kumari MD [address] [place] [place] [address] Scheduled Orders Name Type Priority Associated Diagnoses Orde r Schedule CBC Lab Routine Acquired hypothyroidism Expected: 11/26/2023 (Approximate), Expires: 11/25/2024 TSH WITH FREE T4 IF INDICATED Lab Routine Acquired hypothyroidism Expected: 11/26/2023 (Approximate), Expires: 11/25/2024 Health Maintenance Due Date Last Done Comments [...] D LEVEL ONCE IN A LIFETIME-USE SMARTSET# [id number] Completed 06/27/2023, 01/10/2021, 09/25/2008 HPV (Gardasil) Vaccine [...] as of this encounter Visit Diagnoses Diagnosis Acquired hypothyroidism Unspecified hypothyroidism documented in this encounter Advance Directives Healthcare Agents on File Name Relationship Healthcare Agent Relationshi p Communication Cristobal Jackson Spouse Health Care Repr esentative (appointed verbally by patient or by statute hierarchy) Care Teams Explosive Ordnance Manager Relationship Specialty Start Date End Date Aayush Hardwick MD [address] [place] [address] PCP - General Family Medicine 08/23/23 documented as of this encounter
--- OUTSIDE RECORDS SUMMARY | 2024-01-16 10:13 | External Medical Summary | Summary of Care ---
Author Name Unknown Organization [facility] Address [address] [place] [address] Phone [phone] Care Team Providers Care Timber Appraiser Name Role Phone Aayush Medrano MD Primary Care Provider Reason for Visit * Reason Onset Date Comments Medication Problem 11/13/2023 Call Back 11/13/2023 Encounter Details Date Type Department Care Team (Late st Contact Info) Description 11/13/2023 Telephone Family Practice [facility] [address] [place] [address] Aayush Medrano MD [address] [place] [address] Medication Problem; Call Back Allergies Active Allergy Reactions Criticality Noted Date Comments Penicillins 10/25/1999 rash and given shot as a child, has tolerated augmentin ok as well as cephalosporin documented as of this encounter (statuses as of 11/13/2023) Medications Medication Sig Dispensed Refills Start Date [...] directed via G tube via bolus syringe 28460 mL 11 07/11/2023 Active Apixaban 2.5 MG [...] inj 60 mgIndications:Senile osteoporosis 60 mg SC [id number] 07/11/2023 07/05/2024 Active documented as of this encounter (statuses as of 11/13/2023) Active Problems Problem Noted Date Diagnosed Date [...] as of this encounter (statuses as of 11/13/2023) Resolved Problems Problem Noted Date Diagnosed Date [...] as of this encounter (statuses as of 11/13/2023) Immunizations Name Administration Dates Next Due COVID-19 mRNA, LNP-s, No Pre serve, 2-Dose Series ([employer]) 03/16/2021,08/12/2020,07/22/2020 Covid-19, Mrna, Lnp-s, Pf, B ivalent, 30 Mcg, IM, 12 yrs and above ([employer]) 02/24/2022 Pneumococcal Conjugate Vacc, 13 Valent (Prevnar) [...] money to get more. Never true 09/18/2023 Sex and Gender Information Value Date [...] encounter Miscellaneous Notes * Telephone Encounter - Prosper Dill, experimental rocketsled mechanic - 11/13/2023 5:01 PM EDT [facility] called requesting an alternative for Magic Mouthwash. Nystatin is on a national back order currently. Pharmacy cannot get ingredient to make mouthwash. Thank You, Prosper Dill [facility] Library Acquisitions Technician II [facility] 11/13/2023, 5:02 PM * Telephone Encounter - Jose Ramon Andrews experimental rocketsled mechanic - 11/13/2023 12:36 PM EDT Pt's calling back, he states that its ok to send script to [facility] Please reroute Rx to E [facility] Pending Prescriptions: Disp Refills Magic Mouthwash (Jpkjxqgwv-Repgffqo-Kdapg*450 mL 1 Sig: Swish and spit 15 [...] PM * Telephone Encounter - Ivett Bowens experimental rocketsled mechanic - 11/13/2023 10:47 AM EDT [facility] calling to advise that they do not compound medications and cannot fill the magicmouthwash. They suggested the [facility] . Reached out to patient and left message. When patient calls in please ask them if its ok to send [facility] . Thanks, Ivett Bowens Nuclear Medicine Pet Ct Technologist III [facility] ([facility]) 11/13/2023,10:50 AM documented in this encounter Plan of Treatment Upcoming Encounters Date Type Department Care Team (Late st Contact Info) Description 11/27/2023 11:00 AM EDT Office Visit Family Practice [facility] [address] [address] Aayush Medrano MD [address] [place] [address] 01/03/2024 1:45 PM EDT Office Visit Gynecology/Obstetrics [facility] [address] [address] Balbina Naik CRNP [address] [place] [address] 01/14/2024 1:30 PM EDT Nurse Only Rheumatology [address] [place] [address] Pf, Nurse Rheum [address] [place] [address] [place] [address] 04/02/2024 11:00 AM EST Office Visit Cardiology, [facility] [address] [facility] [address] Allan Siddiqui PA-C [facility] [place] [address] 07/09/2024 11:30 AM EDT Office Visit Urology, [facility] [address] [facility] [place] [address] Spencer Kumari MD 27 [facility] [place] [address] Health Maintenance Due Date Last Done Comments [...] D LEVEL ONCE IN A LIFETIME-USE SMARTSET# [id number] Completed 06/27/2023, 01/10/2021, 09/25/2008 HPV (Gardasil) Vaccine [...] Agents on File Name Relationship Healthcare Agent [facility] p Communication Cristobal Jackson Spouse Health Care Repr esentative (appointed verbally by patient or by statute hierarchy) Care Teams Timber Appraiser Relationship Specialty Start Date End Date Aayush Medrano MD [address] [place] [address] PCP - General Family Medicine 08/23/23 documented as of this encounter
--- OUTSIDE RECORDS SUMMARY | 2024-01-16 10:13 | External Medical Summary | Summary of Care ---
Author Name Unknown Organization [facility] Address [address] [place] [address] Phone [phone] Care Team Providers Care Fundraising Assistant Name Role Phone Aayush Medrano MD Primary Care Provider Reason for Visit * Reason Onset Date Comments Test Results 11/13/2023 Encounter Details Date Type Department Care Team (Late st Contact Info) Description 11/13/2023 Telephone Family Practice [facility] [place] [address] Aayush Medrano MD [address] [place] [address] Test Results Allergies Active Allergy Reactions Criticality Noted Date [...] directed via G tube via bolus syringe 10721 mL 11 07/11/2023 Active Apixaban 2.5 MG Oral Tablet (Eliquis) Administer 1 Tablet into G tube in the morning and 1 Tablet before bedtime. 60 Tablet 3 08/27/2023 Active Carvedilol 6.25 MG Oral Tablet (Coreg) Administer 1 Tablet into G tube 2 times a day with morning and evening meals. 60 Tablet 3 08/27/2023 Active Magic Mouthwash (Koacvblbs-Ocqiejmc-Y ystatin) oral solution Swish and spit 15 mL 3 times a day as needed (oral irritation and mucositis). 450 mL 1 11/13/2023 Active Hospital, Clinic, or Other Facility Administered Medication Ordered Dose Route Frequency Start Date End Date Status Denosumab (Prolia) subcut inj 60 mgIndications:Senile osteoporosis 60 mg SC [id number] 07/11/2023 07/05/2024 Active documented as of this [...] encounter 12/01/2022 04/16/2023 Chronic right flank pain 10/12/20223 Dysarthria 10/12/2022 04/16/2023 Upper respiratory tract infection [...] mRNA, LNP-s, No Pre serve, 2-Dose Series ([employer]) 03/16/2021,08/12/2020,07/22/2020 Covid-19, Mrna, Lnp-s, Pf, B ivalent, 30 Mcg, IM, 12 yrs and above ([employer]) 02/24/2022 Pneumococcal Conjugate Vacc, 13 Valent (Prevnar) [...] Telephone Encounter - Aayush Medrano MD - 11/13/2023 2:34 PM EDT Please call Cristobal and let him know the lung looks good. Id like her to use the magic mouthwash for her mouth and try to get some more fluids in and see how she does. thanks documented in this encounter Plan of Treatment Upcoming Encounters Date Type Department Care Team (Late st Contact Info) Description 11/27/2023 11:00 AM EDT Office Visit Family Practice [facility] [address] [address] Aayush Medrano MD [address] [place] [address] 01/03/2024 1:45 PM EDT Office Visit Gynecology/Obstetrics [facility] [address] [address] Balbina Naik CRNP [address] [place] [address] 01/14/2024 1:30 PM EDT Nurse Only Rheumatology [address] [place] [address] Pf, Nurse Rheum [facility] Fausto Hoskins [place] [address] 04/02/2024 11:00 AM EST Office Visit Cardiology, [facility] [address] [address] Allan Siddiqui PA-C [address] [place] [place] [address] 07/09/2024 11:30 AM EDT Office Visit Urology, [facility] [address] [place] [address] Spencer Kumari MD [address] [place] [address] Health Maintenance Due Date Last Done Comments [...] D LEVEL ONCE IN A LIFETIME-USE SMARTSET# [id number] Completed 06/27/2023, 01/10/2021, 09/25/2008 HPV (Gardasil) Vaccine [...] patient or by statute hierarchy) Care Teams Fundraising Assistant Relationship Specialty Start Date End Date Aaysuh Medrano MD [address] [place] [address] PCP - General Family Medicine 08/23/23 documented as of this encounter
--- OUTSIDE RECORDS SUMMARY | 2024-01-16 10:13 | External Medical Summary | Summary of Care ---
Author Name Unknown Organization [facility] Address [address] [place] [address] Phone [phone] Care Team Providers Care Hvac/R Service Technician Name Role Phone Aayush Medrano MD Primary Care Provider Reason for Visit * Reason Onset Date Comments Medication Problem 11/13/2023 Call Back 11/13/2023 Encounter Details Date Type Department Care Team (Late st Contact Info) Description 11/13/2023 Telephone Family Practice [facility] [address] [place] [address] Aayush Medrano MD [address] [place] [address] Medication Problem; Call Back Allergies Active Allergy [...] directed via G tube via bolus syringe 83417 mL 11 07/11/2023 Active Apixaban 2.5 MG [...] inj 60 mgIndications:Senile osteoporosis 60 mg SC [id number] 07/11/2023 07/05/2024 Active documented as of this [...] mRNA, LNP-s, No Pre serve, 2-Dose Series ([employer]) 03/16/2021,08/12/2020,07/22/2020 Covid-19, Mrna, Lnp-s, Pf, B ivalent, 30 Mcg, IM, 12 yrs and above ([employer]) 02/24/2022 Pneumococcal Conjugate Vacc, 13 Valent (Prevnar) [...] encounter Miscellaneous Notes * Telephone Encounter - Jose Ramon Andrews, commodity director - 11/13/2023 12:36 PM EDT Pt's calling back, he states that its ok to send script to [facility] Please reroute Rx to E [facility] Pending Prescriptions: Disp Refills Magic Mouthwash (Wmqjnvwwx-Imcxrihc-Dydsp*450 mL 1 Sig: Swish and spit 15 [...] PM * Telephone Encounter - Ivett Bowens PHARM Tech - 11/13/2023 10:47 AM EDT [facility] calling to advise that they do not compound medications and cannot fill the magicmouthwash. They suggested the [facility] . Reached out to patient and left message. When patient calls in please ask them if its ok to send [facility] . Thanks, Ivett Bowens Hat Lacer III [facility] ([facility]) 11/13/2023,10:50 AM documented in this encounter Plan of Treatment Upcoming Encounters Date Type Department Care Team (Late st Contact Info) Description 11/27/2023 11:00 AM EDT Office Visit Family Practice [facility] [address] [address] Aayush Medrano MD [address] [place] [address] 01/03/2024 1:45 PM EDT Office Visit Gynecology/Obstetrics [facility] [address] [address] Balbina Naik CRNP [address] [place] [address] 01/14/2024 1:30 PM EDT Nurse Only Rheumatology [place] [address] Fausto [place]kins [place] [address] Pf, Nurse Rheum [facility] [place] [address] 04/02/2024 11:00 AM EST Office Visit Cardiology, [facility] [address] [address] Allan Siddiqui PA-C [address] [place] [address] 07/09/2024 11:30 AM EDT Office Visit Urology, [facility] [address] [place] [address] Spencer Kumari MD [address] [place] [place] [address] Health Maintenance Due Date Last Done Comments [...] D LEVEL ONCE IN A LIFETIME-USE SMARTSET# [id number] Completed 06/27/2023, 01/10/2021, 09/25/2008 HPV (Gardasil) Vaccine [...] patient or by statute hierarchy) Care Teams Hvac/R Service Technician Relationship Specialty Start Date End Date Aayush Medrano MD [address] [place] [address] PCP - General Family Medicine 08/23/23 documented as of this encounter
--- OUTSIDE RECORDS SUMMARY | 2024-01-16 10:13 | External Medical Summary | Summary of Care ---
Author Name Unknown Organization [facility] Address [address] [place] [address] Phone [phone] Care Team Providers Care Instructor Extension Work Name Role Phone Aayush Medrano MD Primary Care Provider Reason for Visit * Reason Onset Date Comments Test Results 11/13/2023 Encounter Details Date Type Department Care Team (Late st Contact Info) Description 11/13/2023 Telephone Family Practice [facility] [place] [address] Aayush Medrano MD [...] directed via G tube via bolus syringe 05102 mL 11 07/11/2023 Active Apixaban 2.5 MG Oral Tablet (Eliquis) Administer 1 Tablet into G tube in the morning and 1 Tablet before bedtime. 60 Tablet 3 08/27/2023 Active Carvedilol 6.25 MG Oral Tablet (Coreg) Administer 1 Tablet into G tube 2 times a day with morning and evening meals. 60 Tablet 3 08/27/2023 Active Magic Mouthwash (Jgybzufrh-Jpghjwko-F ystatin) oral solution Swish and spit 15 mL 3 times a day as needed (oral irritation and mucositis). 450 mL 1 11/13/2023 Active Hospital, Clinic, or Other Facility Administered Medication Ordered Dose Route Frequency Start Date End Date Status Denosumab (Prolia) subcut inj 60 mgIndications:Senile osteoporosis 60 mg SC [id number] 07/11/2023 07/05/2024 Active documented as of this [...] mRNA, LNP-s, No Pre serve, 2-Dose Series ([employer]) 03/16/2021,08/12/2020,07/22/2020 Covid-19, Mrna, Lnp-s, Pf, B ivalent, 30 Mcg, IM, 12 yrs and above ([employer]) 02/24/2022 Pneumococcal Conjugate Vacc, 13 Valent (Prevnar) [...] Telephone Encounter - Sallie Smith LPN - 11/13/2023 2:51 PM EDT Called pt and spoke with . Relayed information from Sherlyn. voiced understanding. * Telephone Encounter - Aayush [...] EDT Office Visit Family Practice [facility] [address] [address] Aayush Medrano MD [address] [place] [address] 01/03/2024 1:45 PM EDT Office Visit Gynecology/Obstetrics [facility] [address] [address] Balbina Naik CRNP [address] [place] [address] 01/14/2024 1:30 PM EDT Nurse Only Rheumatology [place] [address] [facility] [place] [address] Pf, Nurse Rheum [facility] [place] [address] 04/02/2024 11:00 AM EST Office Visit Cardiology, [facility] [address] [place] [address] Allan Siddiqui PA-C [address] [place] [address] 07/09/2024 11:30 AM EDT Office Visit Urology, [facility] [address] [place] [address] Spencer Kumari MD [address] [place] [address] Health Maintenance Due Date Last Done Comments [...] D LEVEL ONCE IN A LIFETIME-USE SMARTSET# [id number] Completed 06/27/2023, 01/10/2021, 09/25/2008 HPV (Gardasil) Vaccine [...] patient or by statute hierarchy) Care Teams Instructor Extension Work Relationship Specialty Start Date End Date Aayush Medrano MD [address] [place] [address] PCP - General Family Medicine 08/23/23 documented as of this encounter
--- OUTSIDE RECORDS SUMMARY | 2024-01-16 10:13 | External Medical Summary | Summary of Care ---
Author Name Unknown Organization [facility] Address [address] [place] [address] Phone [phone] Care Team Providers Care Gold Beater Name Role Phone Aayush Medrano MD Primary Care Provider Reason for Visit * Reason Comments Follow Up Pt here for a 6m f/u . Would like to have lungs checked. Encounter Details Date Type Department Care Team (Late st Contact Info) Description 11/27/2023 11:00 AM EDT Office Visit Family Practice [facility] [place] [address] Aayush Medrano MD 132 [facility] [place] [address] Risk and functional assessment*; Kyphoscoliosis; Acquired hypothyroidism; [...] directed via G tube via bolus syringe 85915 mL 11 07/11/2023 Active Apixaban 2.5 MG Oral Tablet (Eliquis) Administer 1 Tablet into G tube in the morning and 1 Tablet before bedtime. 60 Tablet 3 08/27/2023 Active Carvedilol 6.25 MG Oral Tablet (Coreg) Administer 1 Tablet into G tube 2 times a day with morning and evening meals. 60 Tablet 3 08/27/2023 Active Magic Mouthwash (Dggkhhadb-Sxasektf-K ystatin) oral solution Swish and spit 15 [...] inj 60 mgIndications:Senile osteoporosis 60 mg SC [id number] 07/11/2023 07/05/2024 Active documented as of this [...] mRNA, LNP-s, No Pre serve, 2-Dose Series ([employer]) 03/16/2021,08/12/2020,07/22/2020 Covid-19, Mrna, Lnp-s, Pf, B ivalent, 30 Mcg, IM, 12 yrs and above ([employer]) 02/24/2022 Pneumococcal Conjugate Vacc, 13 Valent (Prevnar) [...] 10 times. Repeat this throughout the day. [employer] Patient Education Copyright 2008 [employer] except where otherwise noted. Preventing Falls: Moving [...] that mean climbing, even on a stepstool. [employer] Patient Education Copyright 2008 - 2010 [employer] except where otherwise noted. Urinary Incontinence Plan [...] Description 12/05/2023 7:45 AM EDT Imaging Radiology [facility] 132 [facility] [place] [address] 12/05/2023 8:00 AM EDT Office Visit Pulmonary Medicine, [facility] 132 [facility] [place] [address] Ger Lu [facility] [address] [facility] [place] [address] 01/03/2024 1:45 PM EDT Office Visit Gynecology/Obstetrics [facility] 132 [facility] [place] [address] Balbina Naik CRNP 132 [facility] [place] [address] 01/14/2024 1:30 PM EDT Nurse Only Rheumatology [address] [place] [address] Pf, Nurse Rheum [address] [place] [address] [place] [address] 04/02/2024 11:00 AM EST Office Visit Cardiology, [facility] [place] [address] Allan Siddiqui PA-C [address] [place] [address] 06/03/2024 11:20 AM EST Office Visit Family Practice [facility] [address] [facility] [place] [address] Aayush Medrano MD [address] [place] [address] 07/09/2024 11:30 AM EDT Office Visit Urology, [facility] [address] [place] [address] Spencer Kumari MD [address] [facility] [place] [address] Scheduled Orders Name Type Priority Associated Diagnoses [...] D LEVEL ONCE IN A LIFETIME-USE SMARTSET# [id number] Completed 06/27/2023, 01/10/2021, 09/25/2008 HPV (Gardasil) Vaccine [...] patient or by statute hierarchy) Care Teams Gold Beater Relationship Specialty Start Date End Date Aayush Medrano MD 132 [place] [address] PCP - General Family Medicine 08/23/23 documented as of this encounter
--- OUTSIDE RECORDS SUMMARY | 2024-01-16 10:14 | External Medical Summary | Summary of Care ---
Author Name Unknown Organization [facility] Address [address] [place] [address] Phone [phone] Care Team Providers Care Development Educator Name Role Phone Aayush Medrano MD Primary Care Provider Reason for Visit * Reason Onset Date Comments Home Health 07/30/2023 FYI 07/30/2023 Encounter Details Date Type Department Care Team (Late st Contact Info) Description 07/30/2023 Telephone Family Practice [facility] [address] [place] [address] Foster Zuniga MD [address] [place] [id number] Home Health; (/) Allergies Active Allergy Reactions Criticality Noted Date Comments Penicillins 10/25/1999 rash and given shot as a child, has tolerated augmentin ok as well as cephalosporin documented as of this encounter (statuses as of 10/29/2023) Medications Medication Sig Dispensed Refills Start Date [...] directed via G tube via bolus syringe 96173 mL 11 07/11/2023 Active Hospital, Clinic, or Other Facility Administered Medication Ordered Dose Route Frequency Start Date End Date Status Denosumab (Prolia) subcut inj 60 mgIndications:Senile osteoporosis 60 mg SC [id number] 07/11/2023 07/05/2024 Active documented as of this encounter (statuses as of 10/29/2023) Active Problems Problem Noted Date Diagnosed Date [...] as of this encounter (statuses as of 10/29/2023) Resolved Problems Problem Noted Date Diagnosed Date [...] as of this encounter (statuses as of 10/29/2023) Immunizations Name Administration Dates Next Due COVID-19 mRNA, LNP-s, No Pre serve, 2-Dose Series ([employer]) 03/16/2021,08/12/2020,07/22/2020 Covid-19, Mrna, Lnp-s, Pf, B ivalent, [...] encounter Miscellaneous Notes * Telephone Encounter - Haylie Chacon LPN - 07/30/2023 1:54 PM EDT Patient has refused their care. Said she doesn't need it. So she is a do not admit for them. FYI documented in this encounter Plan of Treatment Upcoming Encounters Date Type Department Care Team (Late st Contact Info) Description 11/27/2023 11:00 AM EDT Office Visit Family Practice [facility] [address] [place] [address] Aayush Medrano MD [address] [place] [address] 12/17/2023 9:40 AM EDT Office Visit Pulmonary Medicine, [facility] [address] [place] [address] Ger Lu MD [address] [place] [id number] 01/03/2024 1:45 PM EDT Office Visit Gynecology/Obstetrics [facility] [address] [place] [address] Balbina Naik CRNP [address] [place] [address] 01/14/2024 1:30 PM EDT Nurse Only Rheumatology [address] [place] [address] Pf, Nurse Rheum [facility] [address] 04/02/2024 11:00 AM EST Office Visit Cardiology, [facility] 132 [facility] [place] [address] Allan Siddiqui PARachellC [address] [place] [address] 07/09/2024 11:30 AM EDT Office Visit Urology, [facility] [address] [place] [address] Spencer Kumari MD 27 [place] [address] Health Maintenance Due Date Last Done Comments COVID-19 Vaccine ( season) 2022 02/24/2022, 03/16/2021, 08/12/2020, Additional history exists Influenza Vaccine (FLU shot) (#1) 2023 03/12/2023, 01/05/2022, 02/15/2021, Additional history exists TSH 12/30/2023 12/29/2022, 10/28, 10/12/2022, Additional history exists Depression Screening 09/17/2024 09/18/2023 DXA Scan 05/21/2025 05/21/2023, 09/30, 01/26/2016, Additional history exists DTaP,Tdap,and Td Vaccines (3 - Td or Tdap) 10/24/2032 10/24/2022, 03/14/2006 Pneumococcal Vaccine: 65+ Years Completed 06/25/2018, 04/15/2018, 02/03/2014 VITAMIN D LEVEL ONCE IN A LIFETIME-USE SMARTSET# [id number] Completed 06/27/2023, 01/10/2021, 09/25/2008 GARDASIL-HPV IMMUNIZATION SERIES [...] patient or by statute hierarchy) Care Teams Development Educator Relationship Specialty Start Date End Date Aayush Medrano MD 132 [place] [address] PCP - General Family Medicine 08/23/23 documented as of this encounter
--- OUTSIDE RECORDS SUMMARY | 2024-01-16 10:14 | External Medical Summary | Summary of Care ---
Author Name Unknown Organization [facility] Address [address] [place] [address] Phone [phone] Care Team Providers Care Photography And Prints Curator Name Role Phone Aayush Medrano MD Primary Care Provider Reason for Visit * Reason Onset Date Comments Advice 10/29/2023 Encounter Details Date Type Department Care Team (Late st Contact Info) Description 10/29/2023 Telephone Family Practice [facility] [place] [address] Aayush Medrano MD [address] [place] [address] Advice Allergies Active Allergy Reactions Criticality Noted Date [...] directed via G tube via bolus syringe 62729 mL 11 07/11/2023 Active Apixaban 2.5 MG Oral Tablet (Eliquis) Administer 1 Tablet into G tube in the morning and 1 Tablet before bedtime. 60 Tablet 3 08/27/2023 Active Carvedilol 6.25 MG Oral Tablet (Coreg) Administer 1 Tablet into G tube 2 times a day with morning and evening meals. 60 Tablet 3 08/27/2023 Active Hospital, Clinic, or Other Facility Administered Medication Ordered Dose Route Frequency Start Date End Date Status Denosumab (Prolia) subcut inj 60 mgIndications:Senile osteoporosis 60 mg SC [id number] 07/11/2023 07/05/2024 Active documented as of this [...] mRNA, LNP-s, No Pre serve, 2-Dose Series ([employer]) 03/16/2021,08/12/2020,07/22/2020 Covid-19, Mrna, Lnp-s, Pf, B ivalent, 30 Mcg, IM, 12 yrs and above ([employer]uro[employer]) 02/24/2022 Pneumococcal Conjugate Vacc, 13 Valent (Prevnar) [...] Telephone Encounter - Aayush Medrano MD - 10/29/2023 11:33 AM EDT 1 year from July. * Telephone Encounter - Anabel Parra LPN - 10/29/2023 10:49 AM EDT From mammo results "Resume annual screening mammography is recommended for both breasts. ". Please advise-is annual correct? * Telephone Encounter - Dayanara Forrest OSA - 10/29/2023 9:55 AM EDT Pt states Pt had a diagnostic mammogram in July and would like to know when she is due foranother? 1 year or sooner? documented in this encounter Plan of Treatment Upcoming Encounters Date Type Department Care Team (Late st Contact Info) Description 11/27/2023 11:00 AM EDT Office Visit Family Practice [facility] 132 [place] [address] Aayush Medrano MD [address] [place] [address] 12/17/2023 9:40 AM EDT Office Visit Pulmonary Medicine, [facility] 132 [place] [address] Ger Lu MD [address] [place] [address] 01/03/2024 1:45 PM EDT Office Visit Gynecology/Obstetrics [facility] [address] [place] [address] Balbina Naik CRNP [address] [place] [address] 01/14/2024 1:30 PM EDT Nurse Only Rheumatology [place] [address] [facility] [address] Pf, Nurse Rheum [address] [place] [address] [place] [address] 04/02/2024 11:00 AM EST Office Visit Cardiology, [facility] 132 [facility] [place] [address] Allan Siddiqui PA-C [facility] [place] [address] 07/09/2024 11:30 AM EDT Office Visit Urology, [facility] 132 [facility] [place] [address] Spencer Kumari MD [address] [facility] [place] [address] Health Maintenance Due Date Last Done Comments COVID-19 Vaccine (2022- season) 2022 02/24/2022, 03/16/2021, [...] D LEVEL ONCE IN A LIFETIME-USE SMARTSET# [id number] Completed 06/27/2023, 01/10/2021, 09/25/2008 GARDASIL-HPV IMMUNIZATION SERIES [...] patient or by statute hierarchy) Care Teams Photography And Prints Curator Relationship Specialty Start Date End Date Aayush Medrano MD [address] [place] [address] PCP - General Family Medicine 08/23/23 documented as of this encounter
--- OUTSIDE RECORDS SUMMARY | 2024-01-16 10:14 | External Medical Summary | Summary of Care ---
Author Name Unknown Organization [facility] Address [address] [place] [address] Phone [phone] Care Team Providers Care Interlocker Name Role Phone Aayush Medrano MD Primary Care Provider Reason for Visit * Reason Onset Date Comments Advice 10/29/2023 Encounter Details Date Type Department Care Team (Late st Contact Info) Description 10/29/2023 Telephone Family Practice [facility] [place] [address] Aayush Medrano MD [address] [place] [...] directed via G tube via bolus syringe 16714 mL 11 07/11/2023 Active Apixaban 2.5 MG [...] inj 60 mgIndications:Senile osteoporosis 60 mg SC [id number] 07/11/2023 07/05/2024 Active documented as of this [...] mRNA, LNP-s, No Pre serve, 2-Dose Series ([employer]) 03/16/2021,08/12/2020,07/22/2020 Covid-19, Mrna, Lnp-s, Pf, B ivalent, 30 Mcg, IM, 12 yrs and above ([employer]) 02/24/2022 Pneumococcal Conjugate Vacc, 13 Valent (Prevnar) [...] Telephone Encounter - Sallie Smith LPN - 10/29/2023 11:53 AM EDT Called pt and left a detailed vm message. * Telephone Encounter - Aayush Medrano MD [...] 11:00 AM EDT Office Visit Family Practice [facility] 132 [facility] [place] [address] Aayush Medrano MD 132 [facility] [place] [address] 12/17/2023 9:40 AM EDT Office Visit Pulmonary Medicine, [facility] [address] [place] [address] Ger Lu MD [address] [facility] [place] [address] 01/03/2024 1:45 PM EDT Office Visit Gynecology/Obstetrics [facility] 132 [facility] [place] [address] Balbina Naik CRNP 132 [facility] [place] [address] 01/14/2024 1:30 PM EDT Nurse Only Rheumatology [address] [place] [address] Pf, Nurse Rheum [address] [place] [address] [place] [address] 04/02/2024 11:00 AM EST Office Visit Cardiology, [facility] 132 [facility] [place] [address] Allan Siddiqui PA-C 132 [facility] [place] [address] 07/09/2024 11:30 AM EDT Office Visit Urology, [facility] 132 [facility] [place] [address] Spencer Kumari MD 27 [facility] [place] [id number] Health Maintenance Due Date Last Done Comments [...] D LEVEL ONCE IN A LIFETIME-USE SMARTSET# [id number] Completed 06/27/2023, 01/10/2021, 09/25/2008 GARDASIL-HPV IMMUNIZATION SERIES [...] patient or by statute hierarchy) Care Teams Interlocker Relationship Specialty Start Date End Date Aayush Medrano MD [address] [place] [address] PCP - General Family Medicine 08/23/23 documented as of this encounter
--- OUTSIDE RECORDS SUMMARY | 2024-01-16 10:14 | External Medical Summary | Summary of Care ---
Author Name Unknown Organization [facility] Address [address] [facility] [place] [address] Phone [phone] Care Team Providers Care Rip Tailer Name Role Phone Aayush Medrano MD Primary Care Provider Reason for Visit * Reason Comments Follow Up Encounter Details Date Type Department Care Team (Late st Contact Info) Description 10/17/2023 12:40 PM EDT Office Visit Pulmonary Medicine, [facility] [address] [place] [address] Ger Lu MD [address] [facility] [address] Pleural effusion* Allergies Active Allergy Reactions Criticality Noted Date Comments Penicillins 10/25/1999 rash and given shot as a child, has tolerated augmentin ok as well as cephalosporin documented as of this encounter (statuses as of 10/17/2023) Medications Medication Sig Dispensed Refills Start Date [...] directed via G tube via bolus syringe 45859 mL 11 07/11/2023 Active Apixaban 2.5 MG [...] inj 60 mgIndications:Senile osteoporosis 60 mg SC [id number] 07/11/2023 07/05/2024 Active documented as of this encounter (statuses as of 10/17/2023) Active Problems Problem Noted Date Diagnosed Date [...] as of this encounter (statuses as of 10/17/2023) Resolved Problems Problem Noted Date Diagnosed Date Resolved Date BMI less than 19,adult 05/13/202305/14 Medical home patient encounter 12/01/2022 04/16/2023 Chronic right flank pain 10/12/2022 Dysarthria 10/12/2022 04/16/2023 Upper respiratory tract infection 09/27/2022 04/16/2023 Pain around PEG tube site, initial encounter 04/1604/16/2023 Bacterial pneumonia 09/30/2021 10/01/19 22 Severe protein-calorie [...] as of this encounter (statuses as of 10/17/2023) Immunizations Name Administration Dates Next Due COVID-19 mRNA, LNP-s, No Pre serve, 2-Dose Series ([employer]) 03/16/2021,08/12/2020,07/22/2020 Covid-19, Mrna, Lnp-s, Pf, B ivalent, 30 Mcg, IM, 12 yrs and above ([employer]) 02/24/2022 Pneumococcal Conjugate Vacc, 13 Valent [...] Sign Reading Time Taken Comments Blood Pressure 102/70 10/17/2023 12:13 PM EDT Pulse 64 10/17/2023 12:13 PM EDT Temperature 36.7 C (98.1 F) 10/17/2023 1 2:13 PM EDT Respiratory Rate 20 10/17/2023 12:1 3 PM EDT Oxygen Saturation 97% 10/17/2023 12: 14 PM EDT ra, amb Inhaled Oxygen Concentration - - Weight 48.9 kg (107 lb 12.8 oz) 024 12:13 PM EDT Height 165.1 cm (5' 5") 10/17/2023 12:1 3 PM EDT Body Mass Index 17.94 10/17/2023 12:13 PM EDT documented in this encounter Functional [...] Progress Notes * Ger Lu MD - 10/17/2023 12:56 PM EDT 10/17/2023 Pulmonary Medicine, [address] [id number] Sharmin [place] 1945 female 78 year old Attending Physician Documentation: 78-year-old female, 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 Since last evaluation, patient had repeat chest x-ray Sep 17 2023 which shows minimal left pleural effusion. No evidence of reaccumulation/worsening of left pleural effusion noted. Patient describes stable respiratory symptoms status. Chronic peg tube status secondary to dysphagia and partial glossectomy status. 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 Patient denies nocturnal respiratory symptoms, purulent expectoration. Denies lower extremity edema. Pleural fluid cytology was negative for malignancy, predominantly neutrophilic fluid, exudative chemistry, AFB and cultures were negative. Physical examination today shows elderly female with torticollis , fixed neck flexion, adequate airentry with minimal wheezing, 2 fingerbreadths dullness left base, regular cardiac rhythm, no evidence of volume overload and nonlateralizing Neuro examination. Overall picture consistent with resolving parapneumonic effusion following recent left lung pneumonia. Continued radiologic surveillance is recommended. Repeat chest x-ray in 4 weeks with clinic follow-up is recommended. Patient was advised to maintainphysical activity status in contact the office with any change in respiratory symptoms status. Pulmonary clinic follow-up in 4 weeks. Data review: XR CHEST 2 VIEWS - 09/17/2023 HISTORY [...] of aparapneumonic effusion. Clinical correlation is suggested. at 1304 Prior Cancer Hx of breast and tongue cancer Indication for Procedure left pleural effusion CT CHEST WO CONTRAST DATE and TIME: 12/11/2022 9:39 am HISTORY CLINICAL INFORMATION: Follow RLL nodule and apical findings. Also see CT Chest dated 12/2013 for comparison TECHNIQUE Oral Contrast: Oral contrast was not administered. IV Contrast: No IV contrast used COMPARISON CT chest 09/04/2022 FINDINGS LINES AND DEVICES: Percutaneous gastrostomy tube. MEDIASTINUM AND REFUGIO: Unremarkable HEART: Unremarkable LARGE AIRWAYS: Unremarkable LUNGS AND PLEURA: Hyperinflated with scattered thin reticular densities characteristic of COPD. Stable small collection of lung consolidation medial right middle lobe likely scarring and chronic atelectasis. Bilateral apical pleural thickening and calcification and adjacent small collections of lung consolidation similar to prior exam compatible with scarring and chronic atelectasis. New small collection of thin reticular and small nodular densities lateral right middle lobe likely from bronchiolitis. New small collection of thin reticular and small nodular densities posterior right lower lobe likely from bronchiolitis. Other small nodules stable. No suspicious nodules. CHEST WALL/SOFT TISSUES: Unremarkable BONES: Unremarkable VESSELS: Stable ectasia ascending thoracic aorta measuring 3.7 cm diameter. Mild calcified plaque coronary arteries. UPPER ABDOMEN: Gallstones. Left renal calcifications. IMPRESSION IMPRESSION 1. New small collection of thin reticular and small nodular densities lateral right middle lobe likely from bronchiolitis. New small collection of thin reticular and small nodular densities posteriorright lower lobe likely from bronchiolitis. 2. No suspicious nodules. 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 | Check-out note: [facility] f/u 4 weeks Ger Lu MD Subjective CC: Chief Complaint Patient presents with Follow Up HPI: Nursing Notes: Christina Cota, LEE 10/17/23 1218 Addendum Pt is here for f/u pleural effusion. MMRC Dyspnea Scale = 1 (I get short of breath when hurrying on level ground or walking up a slight hill) Interm History/Respiratory Symptoms Cough: no Hemoptysis: no Sinus Symptoms: drainage Hospitalizations: no ED Trips: no Triggers: walking up stairs Nocturnal: no problems, sleeps with head elevated on 2 pillows CPAP/BiPAP/O2: no DME Supplier: n/a Flu Vaccine: 2022 Pneumovax: 2019 Prevnar: 2018 COVID 19: x4 Objective Filed Vitals: 10/17/23 1213 10/17/23 1214 BP: 102/70 Pulse: 64 Resp: 20 Temp: 36.7 C (98.1 F) TempSrc: Tympanic SpO2: 97% 97% Weight: 48.9 kg (107 lb 12.8 oz) Height: 1.651 m (5' 5") Exam: Const: [...] patient: XR CHEST 2 VIEWS Result Date: 09/18/2023 [...] compliance with act 112, the ARUNA (radiology media liaison officer) was contacted to invoke system generated communication of the patient's results. CT ABD/PELVIS WO IV/ORAL CONTRAST Result Date: 06/30/2023 IMPRESSION Bilateral nephrolithiasis. DEXA SCAN/BONE MINERAL AXIAL Result Date: 05/23/2023 S: Fracture risk is based on current National Osteoporosis Foundation (www.nof.org) Clinicians Guide and [place] Association of Clinical Endocrinology (AACE) Guidelines (www.aace.com) and the application of current WHO FRAX tool (https://www.dedrick.ac.uk/FRAX/) as well as the 2017 [place] College [employer] Rheumatology Glucocorticoid Induced Osteoporosis (GIOP) Guidelines (rheumatology.org/Practice-Quality/Clinical-Support/Huyftpjz-Gfdnahnj-Iglyq lines) using Bone mineral density derived T-scoresand clinical risk factors obtained from the patient questionnaire. 1. The fracture risk is HIGH (remains HIGH) 2. The quality of the examination is GOOD. 3. No previous study for comparison. DEXA machine was recently upgraded so comparison study can not be made The low Z-score reflects a low bone mineral density compared to age, and gender-matched controls. SUGGESTIONS: Information concerning the evaluation and treatment of osteoporosis can be found at the National Osteoporosis Foundation website (www.nof.org) and [place] Association of Clinical Endocrinology (AACE-www.aace.com). Osteoporosis prevention and treatment begins by modifying risk factors (such as smoking cessation and avoiding alcohol excess) and by participating in weight-bearing activities and exercise. Issues related to fall prevention and home safety should be addressed. Current NOF guidelines suggest 1200 to 1500 mg of calcium from diet and or supplemental sources. It is generally felt best to get calcium from ones diet. Calcium carbonate and calcium citrate are common calcium s upplement choices in most local pharmacies. If the patient is taking a proton pump inhibitor, then calcium citrate should be the preferred supplement, if that is necessary. NOF guidelines for vitaminD are 800 to 1000 units of vitamin D3 daily. However, this may best be guided by measurement of 25-OH vitamin-D level, aiming for a level between 30 to 50 units (ng/ml). Additional information can be found at the FRAX website (https://www.dedrick.ac.uk/FRAX/), and the [place] College of Rheumatology website (https://www.rheumatology.org/Practice-Quality/Clinical-Support/Clinical-Pr actice-Guidelines). 1. Treatment with a bisphosphonate (such as Fosamax/Alendronate, Actonel/Risedronate, or Boniva/Ibandronate) should be considered. If the patient is unable to use an oral bisphosphonate, another agent such as IV bisphosphonates (Boniva/Ibandronate or Reclast/Zoledronic Acid ), Prolia/Denosumab Forteo/Teriparatide, Tymlos/Abaloparatide, Evenity/Romosozumab, or a selective estrogen receptormodulator (Evista/Raloxifene) should be considered. Secondary causes of low bone density should be considered. A 25-OH Vitamin D, serum calcium, and creatinine should be obtained. Other studies can be considered which would include a PTH, IEP, TSH, or Testosterone (in men). (For users of [employer]handyhand, there is an osteoporosis Smart Set #1146). If there are questions about how to best manage this high risk patient, consideration can be given to referral to [facility] ([facility]). To placea consult, type in [facility] under orders in [employer]handyhand. Alternatively, an "ASK-a-DOC" question can be sent to any Pressure Control Supervisor or Research And Development Director in the [employer] System - You can request a specific physician to answer your question or you can use the physician responsible for ASK-a-DOC that day. 2. Giventhe patient's Z-score (comparison with age matched controls) which is below 1.0, one should consider secondary causes of low bone mineral density. A 25-OH Vitamin D, serum calcium, and creatinine should be obtained. Other studies can be considered which would include a PTH, IEP, TSH, or Testosterone (in men). For [facility] Providers, use the OSTEOPOROSIS Smart Set [1146] 3. A repeat study should be considered in 2 years, after therapy is started MINI BATRES M.D. ISCAnthony Certified Clinical Rigging Helper Department of Rheumatology [facility]formerly [employer]) [facility] Available Radiologic data was reviewed by me in PACS. The images were shown to the patient and findings were discussed with the patient. HOME MEDICATIONS: Apixaban 2.5 MG Oral Tablet (Eliquis) Carvedilol 6.25 MG Oral Tablet (Coreg) Fibersource HN Oral Liquid Levothyroxine Sodium 100 MCG Oral Tablet (Levoxyl) Acetaminophen Childrens 160 MG/5ML Oral Solution Denosumab [...] Laterality Date CHANGE G-TUBE, PERC W/O IMAGING (INKING MACHINE TENDER/RN) 06/05/2016 EGD, FLEXIBLE, DIAGNOSTIC 11/27/2012 UPPER GI ENDOSCOPY DIAGNOSTIC performed by Jacob Santos MD at OR [facility] EGD, FLEXIBLE, DIAGNOSTIC 10/01/2013 eso stricture, sm HH/ESOPHAGOGASTRODUODENOSCOPY (EGD), FLEXIBLE, TRANSORAL, DIAGNOSTIC performed byJacob Santos MD at ENDOSCOPY [facility] EGD, FLEXIBLE, DIAGNOSTIC 02/05/2014 ESOPHAGOGASTRODUODENOSCOPY (EGD), FLEXIBLE, TRANSORAL, DIAGNOSTIC performed by Adrian Muñoz MD at [facility] [facility] [place]GD, FLEXIBLE, DIAGNOSTIC N/A 03/18/2014 ESOPHAGOGASTRODUODENOSCOPY (EGD), FLEXIBLE, TRANSORAL, DIAGNOSTIC performed by Adrian Muñoz MD at [place] [facility] [place]GD, FLEXIBLE, DIAGNOSTIC 07/28/2014 ESOPHAGOGASTRODUODENOSCOPY (EGD), FLEXIBLE, TRANSORAL, DIAGNOSTIC performed by Adrian Muñoz MD at [facility] EGD, FLEXIBLE, DIAGNOSTIC 12/25/2014 ESOPHAGOGASTRODUODENOSCOPY (EGD), FLEXIBLE, TRANSORAL, DIAGNOSTIC performed by Isaiah Sen MD at [facility] EGD, FLEXIBLE, DIAGNOSTIC 05/13/2015 PEG placement/inpt [facility] EGD, FLEXIBLE, DIAGNOSTIC 05/10/2015 radiation changes, eso web, HH/inpt [facility] ESOPHAGOSCOPY, FLEXIBLE, TRANSENDOSCOPIC DILATION <30MM 07/09 [place] with dilatation PARTIAL MASTECTOMY 04/07/05 Left PM/SLNB at [facility] Dr. Sharma THORACOTOMY WITH EXPLORATION [...] of Health Financial Resource Strain: Low Risk (09/18/2023) Financial Resource Strain Do you have any trouble paying for your medications, or do you think you might in the future? (Adult - for ages 18 years and over): No Food Insecurity: No Food Insecurity (09/18/2023) Food Insecurity Do you need food for this week? (Adult - for ages 18 years and over): No Transportation Needs: No Transportation Needs (09/18/2023) Transportation Needs Do you have trouble getting a ride to medical visits or work? (Adult - for ages 18 years and over):Never True Social Connections: Socially Integrated (09/18/2023) Social Connections How often do you feel lonely or isolated from those around you? (Adult - for ages 18 years and over): Never Housing Stability: Low Risk (09/18/2023) Housing Stability Do you currently live in a longterm or have no steady place to sleep [...] documented in this encounter Nursing Notes * Christina Cota LPN - 10/17/2023 12:09 PM EDT Pt is here for f/u pleural effusion. MMRC Dyspnea Scale = 1 (I get short of breath when hurrying on level ground or walking up a slight hill) Interm History/Respiratory Symptoms Cough: no Hemoptysis: no Sinus Symptoms: drainage Hospitalizations: no ED Trips: no Triggers: walking up stairs Nocturnal: no problems, sleeps with head elevated on 2 pillows CPAP/BiPAP/O2: no DME Supplier: n/a Flu Vaccine: 2022 Pneumovax: 2019 Prevnar: 2018 COVID 19: x4 documented in this encounter Plan of Treatment Upcoming Encounters Date Type Department Care Team (Late st Contact Info) Description 11/27/2023 11:00 AM EDT Office Visit Family Practice [facility] [address] [place] [address] Aayush Medrano MD [address] [place] [address] 12/17/2023 9:40 AM EDT Office Visit Pulmonary Medicine, [facility] [address] [place] [address] Ger Lu MD [address] [place] [address] 01/03/2024 1:45 PM EDT Office Visit Gynecology/Obstetrics [facility] [address] [address] Balbina Naik CRNP [address] [address] 01/14/2024 1:30 PM EDT Nurse Only Rheumatology [address] [place] [address] Pf, Nurse Rheum [address] [place] [address] [place] [address] 04/02/2024 11:00 AM EST Office Visit Cardiology, [facility] [address] [facility] [place] [address] Allan Siddiqui PA-C [address] [place] [address] 07/09/2024 11:30 AM EDT Office Visit Urology, [facility] [address] [facility] [place] [address] Spencer Kumari MD [address] [facility] [place] [address] [place] [address] Scheduled Orders Name Type Priority Associated Diagnoses Orde r Schedule XR CHEST 2 VIEWS Medical Imaging Routine Pleural effusion Expected: 11/16/2023, Expires: 11/15/2024 Health Maintenance Due Date Last Done Comments COVID-19 Vaccine ( season) 2022 02/24/2022, 03/16/2021, 08/12/2020, Additional history exists TSH 12/30/2023 12/29/2022, 10/28, 10/12/2022, Additional history exists Depression Screening 09/17/2024 09/18/2023 DXA Scan 05/21/2025 05/21/2023, 09/30, 01/26/2016, Additional history exists DTaP,Tdap,and Td Vaccines (3 - Td or Tdap) 10/24/2032 10/24/2022, 03/14/2006 Pneumococcal Vaccine: 65+ Years Completed 06/25/2018, 04/15/2018, 02/03/2014 Influenza Vaccine (FLU shot) Completed 03/12/2023, 01/05/2022, 02/15/2021, Additional history exists VITAMIN D LEVEL ONCE IN A LIFETIME-USE SMARTSET# [id number] Completed 06/27/2023, 01/10/2021, 09/25/2008 GARDASIL-HPV IMMUNIZATION SERIES [...] patient or by statute hierarchy) Care Teams Rip Tailer Relationship Specialty Start Date End Date Aayush Medrano MD [address] [facility] [place] [address] PCP - General Family Medicine 08/23/23 documented as of this encounter
--- OUTSIDE RECORDS SUMMARY | 2024-01-16 10:14 | External Medical Summary | Summary of Care ---
Author Name Unknown Organization [facility] Address [address] [place] [address] Phone [phone] Care Team Providers Care Deckhand Shrimp Boat Name Role Phone Aayush Medrano MD Primary Care Provider Reason for Visit * Reason Comments Acute Pt here for complain ts of just not feeling well. Pt having trouble just getting her legs to move, lips peeling, since drainage (possible allergies), and fatigue for the last 3-4 days Encounter Details Date Type Department Care Team (Late st Contact Info) Description 11/13/2023 8:40 AM EDT Office Visit [facility] [address] [facility] [place] [address] Aayush Medrano MD 132 [facility] [place] [address] Recurrent left pleural effusion*; Cough, unspecified type; Nasal drainage; Fatigue, unspecified type; Stomatitis and mucositis Allergies Active Allergy Reactions Criticality Noted Date [...] directed via G tube via bolus syringe 31425 mL 11 07/11/2023 Active Apixaban 2.5 MG Oral Tablet (Eliquis) Administer 1 Tablet into G tube in the morning and 1 Tablet before bedtime. 60 Tablet 3 08/27/2023 Active Carvedilol 6.25 MG Oral Tablet (Coreg) Administer 1 Tablet into G tube 2 times a day with morning and evening meals. 60 Tablet 3 08/27/2023 Active Magic Mouthwash (Hiwpgfxxl-Gjppxxcr-P ystatin) oral solution Swish and spit 15 mL 3 times a day as needed (oral irritation and mucositis). 450 mL 1 11/13/2023 Active Hospital, Clinic, or Other Facility Administered Medication Ordered Dose Route Frequency Start Date End Date Status Denosumab (Prolia) subcut inj 60 mgIndications:Senile osteoporosis 60 mg SC [id number] 07/11/2023 07/05/2024 Active documented as of this [...] mRNA, LNP-s, No Pre serve, 2-Dose Series (Followap) 03/16/2021,08/12/2020,07/22/2020 Covid-19, Mrna, Lnp-s, Pf, B ivalent, 30 Mcg, IM, 12 yrs and above (Followap) 02/24/2022 Pneumococcal Conjugate Vacc, 13 Valent (Prevnar) [...] Sign Reading Time Taken Comments Blood Pressure 96/50 11/13/2023 8:36 AM EDT Pulse 61 11/13/2023 8:36 AM EDT Temperature 36.1 C (96.9 F) 11/13/2023 8:36 AM ED T Respiratory Rate 16 11/13/2023 8:36 AM EDT Oxygen Saturation 99% 11/13/2023 8:36 AM EDT Inhaled Oxygen Concentration - - Weight 48.6 kg (107 lb 3.2 oz) 11/13/2023 8:36 A M EDT Height 165.1 cm (5' 5") 11/13/2023 8:36 AM EDT Body Mass Index 17.84 11/13/2023 8:36 AM EDT documented in this encounter Functional [...] as of this encounter Progress Notes * Aayush Medrano MD - 11/13/2023 12:24 PM EDT Images from the original note were not included. History of Present Illness Sharmin Jackson is a 78 year old female that presents for Acute (Pt here for complaints of just not feeling well. Pt having trouble just getting her legs to move, lips peeling, since drainage (possibleallergies), and fatigue for the last 3-4 days) Physical Exam BP 96/50 (BP Site: Left Arm, BP Position: Sitting, BP Cuff Size: Regular) | Pulse 61 | Temp 36.1 C (96.9 F) (Tympanic) | Resp 16 | Ht 1.651 m (5' 5") | Wt 48.6 kg (107 lb 3.2 oz) | SpO2 99% | BMI17.84 kg/m | BSA 1.49 m Mildly ill appearing elderly female in no acute distress who appears fatigued Hunched cervical posture + oral mucositis and irritation of lips and oral mucosa/tongue Neck firm, fibrous skin Fluid/crackles audible in base of left lung, no wheezing RRR Antalgic gait pattern I have reviewed most recent labs None Assessment and Plan Recurrent left pleural effusion - recheck effusion considering worsening cough and fatigue. - XR CHEST 2 VIEWS Cough, unspecified type - see above - XR CHEST 2 VIEWS Nasal drainage - new Fatigue, unspecified type - worsening Stomatitis and mucositis - new - magic mouthwash. Wrap-Up Follow Up: Return for Return with Physician tbd based on results. | For: Return with Physician tbd based on results Time: I spent a total of 30-39 minutes (exact time 35 mins) on the date of service in preparation, delivery, and documentation of the care provided to Sharmin Jackson excluding any time spent in the performance of separately billed services. documented in this encounter Plan of Treatment Upcoming Encounters Date Type Department Care Team (Late st Contact Info) Description 11/27/2023 11:00 AM EDT Office Visit [facility] [address] [place] [address] Aayush Medrano MD [address] [place] [address] 01/03/2024 1:45 PM EDT Office Visit Gynecology/Obstetrics [facility] [address] [place] [address] Balbina Naik CRNP [address] [place] [address] 01/14/2024 1:30 PM EDT Nurse Only Rheumatology [place] [address] [place] [address] Pf, Nurse Rheum [facility] [place] [address] 04/02/2024 11:00 AM EST Office Visit Cardiology, [facility] [address] [place] [address] Allan Siddiqui PA-C [address] [place] [address] 07/09/2024 11:30 AM EDT Office Visit Urology, [facility] [address] [place] [address] Spencer Kumari MD 27 [facility] [place] [address] Health Maintenance Due Date Last Done Comments [...] D LEVEL ONCE IN A LIFETIME-USE SMARTSET# [id number] Completed 06/27/2023, 01/10/2021, 09/25/2008 HPV (Gardasil) Vaccine [...] Procedure Name Priority Date/Time Associated Diagnosis Comments XR CHEST 2 VIEWS Routine 11/13/2023 9:18 AM EDT Recurrent left pleural effusion Cough, unspecified type documented in this encounter Results * XR CHEST 2 VIEWS (11/13/2023 9:18 AM EDT) Anatomical Region Laterality Modality Chest Digital Radiogra phy 11/13/2023 10:1 4 AM EDT Impressions 11/13/2023 10:12 AM EDT IMPRESSION No active disease. Narrative 11/13/2023 10:12 AM EDT EXAM XR CHEST 2 VIEWS - 11/13/2023 9:18 am HISTORY "follow up left pleural effusion" TECHNIQUE Frontal and lateral views of the chest were obtained. COMPARISON 09/17/2023 FINDINGS The lungs are clear. There is no pleural effusion or pneumothorax. The cardiomediastinal silhouette is within normal limits. Procedure Note Danilo Yates MD - 11/13/2023 EXAM XR CHEST 2 VIEWS - 11/13/2023 9:18 am HISTORY "follow up left pleural effusion" TECHNIQUE Frontal and lateral views of the chest were obtained. COMPARISON 09/17/2023 FINDINGS The lungs are clear. There is no pleural effusion or pneumothorax. Thecardiomediastinal silhouette is within normal limits. IMPRESSION IMPRESSION No active disease. Aayush Medrano MD RADIOLOGY ([facility]) documented in this encounter Visit Diagnoses Diagnosis Recurrent left pleural effusion- Primary Unspecified pleural effusion Cough, unspecified type Nasal drainage Other diseases of nasal cavity and sinuses Fatigue, unspecified type Stomatitis and mucositis Stomatitis and mucositis, unspecified documented in this encounter Advance Directives Healthcare Agents on File Name Relationship Healthcare Agent [facility] p Communication Cristobal Jackson [facility] Health Care Repr esentative (appointed verbally by patient or by statute hierarchy) Care Teams Deckhand Shrimp Boat Relationship Specialty Start Date End Date Aayush Medrano MD [address] [place] [address] PCP - General Family Medicine 08/23/23 documented as of this encounter
--- OUTSIDE RECORDS SUMMARY | 2024-01-16 10:15 | External Medical Summary | Summary of Care ---
Author Name Unknown Organization [facility] Address [address] [place] [address] Phone [phone] Care Team Providers Care Networking Technician Name Role Phone Aayush Medrano MD Primary Care Provider Reason for Visit * Reason Comments Follow Up Pt here for f/u. Pt states that she is still not feeling well. Sill having back pain when coughing. Encounter Details Date Type Department Care Team (Late st Contact Info) Description 09/18/2023 9:00 AM EDT Office Visit Family Practice [facility] [place] [address] Aayush Medrano MD [address] [place] [address] Recurrent left pleural effusion*; Acute recurrent sinusitis, unspecified location Allergies Active Allergy Reactions Criticality Noted Date Comments Penicillins 10/25/1999 rash and given shot as a child, has tolerated augmentin ok as well as cephalosporin documented as of this encounter (statuses as of 09/18/2023) Medications Medication Sig Dispensed Refills Start Date [...] directed via G tube via bolus syringe [id number] mL 11 07/11/2023 Active Apixaban 2.5 MG Oral Tablet (Eliquis) Administer 1 Tablet into G tube in the morning and 1 Tablet before bedtime. 60 Tablet 3 08/27/2023 Active Carvedilol 6.25 MG Oral Tablet (Coreg) Administer 1 Tablet into G tube 2 times a day with morning and evening meals. 60 Tablet 3 08/27/2023 Active Cephalexin 250 MG/5ML Oral Suspension Reconstituted (Keflex) Administer 10 mL into PEG tube in the morning and 10 mL at noon and 10 mL before bedtime. Do all this for 10 days. 300 mL 09/18/2023 09/28/2023 Active Hospital, Clinic, or Other Facility Administered Medication Ordered Dose Route Frequency Start Date End Date Status Denosumab (Prolia) subcut inj 60 mgIndications:Senile osteoporosis 60 mg SC [id number] 07/11/2023 07/05/2024 Active documented as of this encounter (statuses as of 09/18/2023) Active Problems Problem Noted Date Diagnosed Date [...] as of this encounter (statuses as of 09/18/2023) Resolved Problems Problem Noted Date Diagnosed Date [...] as of this encounter (statuses as of 09/18/2023) Immunizations Name Administration Dates Next Due COVID-19 mRNA, LNP-s, No Pre serve, 2-Dose Series (6Scan) 03/16/2021,08/12/2020,07/22/2020 Covid-19, Mrna, Lnp-s, Pf, B ivalent, 30 Mcg, IM, 12 yrs and above (6Scan) 02/24/2022 Pneumococcal Conjugate Vacc, 13 Valent (Prevnar) [...] Sign Reading Time Taken Comments Blood Pressure 104/50 09/18/2023 9:10 AM EDT Pulse 60 09/18/2023 9:10 AM EDT Temperature 36.2 C (97.2 F) 09/18/2023 9:10 AM ED T Respiratory Rate 16 09/18/2023 9:10 AM EDT Oxygen Saturation 98% 09/18/2023 9:10 AM EDT Inhaled Oxygen Concentration - - Weight 49.7 kg (109 lb 9.6 oz) 09/18/2023 9:10 A M EDT Height 165.1 cm (5' 5") 09/18/2023 9:10 AM EDT Body Mass Index 18.24 09/18/2023 9:10 AM EDT documented in this encounter Functional [...] Progress Notes * Aayush Medrano MD - 09/18/2023 9:37 AM EDT Images from the original note were not included. History of Present Illness Sharmin Jackson is a 78 year old female that presents for Follow Up (Pt here for f/u. Pt states that she is still not feeling well. Sill having back pain when coughing. ) Patient seen a month ago and diagnosed with a left pleural effusion after being seen with SOB and fatigue. Ended up seeing pulm two days later and had thoracentesis with 1000mL of transudative fluid removed. Fluid studies were negative in terms of cytology and culture and thought to be related to recent PNA. There is concern for parapneumonic effusion after follow up studies. The patient's called yesterday with complaint of worsening SOB, going in direction of how she was feeling week leading up to being seen by me initially. CXR was ordered and had done yesterday. Attempted to have her get decubitus views but she was unable to due to body habitus and radiology were having a hard time positioning her. Seen this morning with and she's having a hard time breathing out of her right nostril. 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 She states her back still hurts on the right posterior ribs when she cough but no pain at rest. Physical Exam BP 104/50 (BP Site: Left Arm, BP Position: Sitting, BP Cuff Size: Regular) | Pulse 60 | Temp 36.2 C (97.2 F) (Tympanic) | Resp 16 | Ht 1.651 m (5' 5") | Wt 49.7 kg (109 lb 9.6 oz) | SpO2 98% | BMI 18.24 kg/m | BSA 1.51 m AAOx3 Normal affect Speaks clearly enough to be understood Chronic torticollis + right nare occluded Narrowed oropharyngeal airway NCAT/ PERRL Neck supple Throat clear RRR Faint breath sounds left lower lobe Abd soft +BS Ext warm and well perfused No gross neuro deficits Hunched posture with slow gait I have reviewed most recent labs fluid studies Assessment and Plan Recurrent left pleural effusion - I reviewed the pre-read on her xray yesterday and the left lower pleural effusion IS still present/recurred though appears much smaller than it did in pre-thoracentesis films and even smaller than it was on 09/03/2023 f/u CXR. I did attempt to get a decub view but patient was unable to position forit. I actually think a majority of her breathing difficulty and subjective SOB is related to below as her right nare is occluded and she can't really breathe out of her mouth. Regardless, when final read returns will attempt to speak w/ pulmonology re: options for what is likely a parapneumonic effusion that may need/require further treatment/intervention. Acute recurrent sinusitis, unspecified location - will treat with keflex TID for 10 days and she should do nasal saline as tolerated and blow nose regularly. Wrap-Up tbd Time: I spent a total of 30-39 minutes (exact time 33 mins) on the date of service in preparation, delivery, and documentation of the care provided to Sharmin Jackson excluding any time spent in the performance of separately billed services. documented in this encounter Plan of Treatment Upcoming Encounters Date Type Department Care Team (Late st Contact Info) Description 09/21/2023 3:00 PM EDT Office Visit Gynecology/Obstetrics [facility] [address] [place] [address] Balbina Naik CRNP [address] [place] [address] 09/28/2023 1:30 PM EDT Office Visit Cardiology, [facility] 132 [facility] [place] [address] Allan Siddiqui PA-C 132 [facility] [place] [address] 10/17/2023 12:40 PM EDT Office Visit Pulmonary Medicine, [facility] 132 [facility] [place] [address] Ger Lu MD [address] [facility] [place] [address] 11/27/2023 11:00 AM EDT Office Visit Family Practice [facility] 132 [facility] [place] [address] Aayush Medrano MD 132 [facility] [place] [address] 01/14/2024 1:30 PM EDT Nurse Only Rheumatology [facility] [address] [place] [address] Pf, Nurse Rheum [facility] [facility] [place] [address] 07/09/2024 11:30 AM EDT Office Visit Urology, [facility] 132 [facility] [place] [address] Spencer Kumari MD 27 [facility] [address] [place] [address] Health Maintenance Due Date Last Done Comments *BISPHONATE OR OTHER ACCEPTABLE MEDICATION NEEDED FOR [...] D LEVEL ONCE IN A LIFETIME-USE SMARTSET# [id number] Completed 06/27/2023, 01/10/2021, 09/25/2008 GARDASIL-HPV IMMUNIZATION SERIES [...] as of this encounter Visit Diagnoses Diagnosis Recurrent left pleural effusion- Primary Unspecified pleural effusion Acute recurrent sinusitis, unspecified location documented in this encounter Advance Directives Healthcare Agents on File Name Relationship Healthcare Agent Relationshi p Communication Cristobal Jackson Spouse Health Care Repr esentative (appointed verbally by patient or by statute hierarchy) Care Teams Networking Technician Relationship Specialty Start Date End Date Aayush Medrano MD [address] [place] [address] PCP - General Family Medicine 08/23/23 documented as of this encounter
--- OUTSIDE RECORDS SUMMARY | 2024-01-16 10:15 | External Medical Summary | Summary of Care ---
Author Name Unknown Organization [facility] Address [address] [place] [address] Phone [phone] Care Team Providers Care Auto Parts Counter Person Name Role Phone Aayush Medrano MD Primary Care Provider Encounter Details Date Type Department Care Team (Late st Contact Info) Description 09/10/2023 Orders Only Outcomes Research Department [address] [place] [address] Brinda Restrepo CHRA [employer] Other*[id number] Allergies Active Allergy Reactions Criticality Noted Date Comments Penicillins 10/25/1999 rash and given shot as a child, has tolerated augmentin ok as well as cephalosporin documented as of this encounter (statuses as of 09/10/2023) Medications Medication Sig Dispensed Refills Start Date [...] directed via G tube via bolus syringe 54515 mL 11 07/11/2023 Active Apixaban 2.5 MG [...] inj 60 mgIndications:Senile osteoporosis 60 mg SC [id number] 07/11/2023 07/05/2024 Active documented as of this encounter (statuses as of 09/10/2023) Active Problems Problem Noted Date Diagnosed Date [...] as of this encounter (statuses as of 09/10/2023) Resolved Problems Problem Noted Date Diagnosed Date [...] as of this encounter (statuses as of 09/10/2023) Immunizations Name Administration Dates Next Due COVID-19 mRNA, LNP-s, No Pre serve, 2-Dose Series (Liqu[employer] State) 03/16/2021,08/12/2020,07/22/2020 Covid-19, Mrna, Lnp-s, Pf, B ivalent, [...] 09/21/2023 3:00 PM EDT Office Visit Gynecology/Obstetrics [facility] [address] [place] [address] Balbina Naik CRNP [address] [place] [address] 09/28/2023 1:30 PM EDT Office Visit Cardiology, [facility] 132 [facility] [place] [address] Allan Siddiqui, PARachellC 132 [facility] [place] [address] 10/17/2023 12:40 PM EDT Office Visit Pulmonary Medicine, [facility] 132 [facility] [place] [address] Ger Lu MD [address] [place] [address] 11/27/2023 11:00 AM EDT Office Visit Family Practice [facility] 132 [facility] [place] [address] Aayush Medrano MD 132 [facility] [place] [address] 01/14/2024 1:30 PM EDT Nurse Only Rheumatology [address] [place] [address] Pf, Nurse Rheum [address] [place], [place] [address] [address] 07/09/2024 11:30 AM EDT Office Visit Urology, [facility] 132 [facility] [place] [address] Spencer Kumari MD 27 [facility] [address] [place] [address] Scheduled Orders Name Type Priority Associated Diagnoses Orde r Schedule MYCODE SUBSEQUENT ADULT Lab Routine [employer] Other*[id number] Every 6 Months for 2 Occurrences starting 09/10/2023 until 09/29/2024 Health Maintenance Due Date Last Done Comments [...] D LEVEL ONCE IN A LIFETIME-USE SMARTSET# [id number] Completed 06/27/2023, 01/10/2021, 09/25/2008 GARDASIL-HPV IMMUNIZATION SERIES [...] this encounter Visit Diagnoses Diagnosis [employer] Other*[id number] documented in this encounter Advance Directives Healthcare Agents on File Name Relationship Healthcare Agent Relationshi p Communication Cristobal Jackson Spouse Health Care Repr esentative (appointed verbally by patient or by statute hierarchy) Care Teams Auto Parts Counter Person Relationship Specialty Start Date End Date Aayush Medrano MD [address] [place] [address] PCP - General Family Medicine 08/23/23 documented as of this encounter
--- OUTSIDE RECORDS SUMMARY | 2024-01-16 10:15 | External Medical Summary | Summary of Care ---
Author Name Unknown Organization [facility] Address [address] [place] [address] Phone [phone] Care Team Providers Care Fender Mechanic Name Role Phone Aayush Medrano MD Primary Care Provider Reason for Visit * Reason Onset Date Comments Advice 09/07/2023 Encounter Details Date Type Department Care Team (Late st Contact Info) Description 09/07/2023 Telephone Family Practice [facility] [place] [address] Aayush Medrano MD [address] [place] [address] Advice Allergies Active Allergy Reactions Criticality Noted Date Comments Penicillins 10/25/1999 rash and given shot as a child, has tolerated augmentin ok as well as cephalosporin documented as of this encounter (statuses as of 09/07/2023) Medications Medication Sig Dispensed Refills Start Date [...] directed via G tube via bolus syringe 15446 mL 11 07/11/2023 Active Apixaban 2.5 MG [...] inj 60 mgIndications:Senile osteoporosis 60 mg SC [id number] 07/11/2023 07/05/2024 Active documented as of this encounter (statuses as of 09/07/2023) Active Problems Problem Noted Date Diagnosed Date [...] as of this encounter (statuses as of 09/07/2023) Resolved Problems Problem Noted Date Diagnosed Date [...] as of this encounter (statuses as of 09/07/2023) Immunizations Name Administration Dates Next Due COVID-19 mRNA, LNP-s, No Pre serve, 2-Dose Series ([employer]port Systems) 03/16/2021,08/12/2020,07/22/2020 Covid-19, Mrna, Lnp-s, Pf, B ivalent, 30 Mcg, IM, 12 yrs and above ([employer]port Systems) 02/24/2022 Pneumococcal Conjugate Vacc, 13 Valent (Prevnar) [...] Telephone Encounter - Aayush Medrano MD - 09/07/2023 12:45 PM EDT I reviewed Sharmin's CT of abdomen/pelvis as well as her recent results and visit from/with the pulmonology team. Her CT of her abdomen is encouraging. She has a few small kidney stones but none of them are stuck/blocking any important structures/areas. The bigger issue will the pleural effusion in her lung (the same one that was drained). She will need to follow up with pulmonology and get the xrays rechecked. This may need to be drained again. I see this has been scheduled and she has follow up with Dr Lu. Please let Mr Jackson know - thanks. * Telephone Encounter - Sherri Umanzor RN - 09/07/2023 11:34 AM EDT Patients , Cristobal left a voicemail on CM line asking if you would mind reviewing Sharmin's abdCT results documented in this encounter Plan of Treatment Upcoming Encounters Date Type Department Care Team (Late st Contact Info) Description 09/21/2023 3:00 PM EDT Office Visit Gynecology/Obstetrics [facility] [address] [address] Balbina Naik CRNP [address] [place] [address] 09/28/2023 1:30 PM EDT Office Visit Cardiology, [facility] [address] [address] Allan Siddiqui PA-C [address] [place] [address] 10/17/2023 12:40 PM EDT Office Visit Pulmonary Medicine, [facility] [address] [place] [address] Ger Lu MD [address] [place] [address] 11/27/2023 11:00 AM EDT Office Visit Family Practice [facility] 132 [facility] [place] [address] Aayush Medrano MD 132 [facility] [place] [address] 01/14/2024 1:30 PM EDT Nurse Only Rheumatology [address] [place] [address] Pf, Nurse Rheum [address] [place] [address] [place] [address] 07/09/2024 11:30 AM EDT Office Visit Urology, [facility] 132 [facility] [place] [address] Spencer Kumari MD [address] [place] [address] [place] [address] Health Maintenance Due Date Last Done [...] D LEVEL ONCE IN A LIFETIME-USE SMARTSET# [id number] Completed 06/27/2023, 01/10/2021, 09/25/2008 GARDASIL-HPV IMMUNIZATION SERIES [...] patient or by statute hierarchy) Care Teams Fender Mechanic Relationship Specialty Start Date End Date Aayush Medrano MD 132 [facility] [place] [address] PCP - General Family Medicine 08/23/23 documented as of this encounter
--- OUTSIDE RECORDS SUMMARY | 2024-01-16 10:15 | External Medical Summary | Summary of Care ---
Author Name Unknown Organization [facility] Address [address] [place] [address] Phone [phone] Care Team Providers Care Computer Game Designer Name Role Phone Aayush Medrano MD Primary Care Provider Reason for Visit * Reason Comments Follow Up * Evaluate & Treat - Unlimited Visits (Within 10 days (routine)) - Authorized Specialty Diagnoses / Procedures Referred By Obed briones Referred To Contact Cardiovascular Medicine / Cardiology Diagnoses Paroxysmal atrial fibrillation (HCC) Foster Zuniga MD [address] [place] [address] Referral ID Status Reason Start Date Expiration Date Visits Requested Visits Authorized [id number] Authorized Specialty Services Required 08/01/[phone] Encounter Details Date Type Department Care Team (Latest Contact Info) Description 09/28/2023 1:30 PM EDT Office Visit Cardiology, [facility] [address] [address] Allan Siddiqui PA-C [address] [place] [address] Paroxysmal atrial fibrillation (HCC)*; Hospital discharge follow-up; Coronary artery calcification seen on CT scan; Dyslipidemia, goal LDL below 70 Allergies Active Allergy Reactions Criticality Noted Date Comments Penicillins 10/25/1999 rash and given shot as a child, has tolerated augmentin ok as well as cephalosporin documented as of this encounter (statuses as of 09/30/2023) Medications Medication Sig Dispensed Refills Start Date [...] directed via G tube via bolus syringe 51489 mL 11 07/11/2023 Active Apixaban 2.5 MG [...] this for 10 days. 300 mL 09/18/2023 Discontinue d(End of Procedure) Hospital, Clinic, or Other Facility Administered Medication Ordered Dose Route Frequency Start Date End Date Status Denosumab (Prolia) subcut inj 60 mgIndications:Senile osteoporosis 60 mg SC [id number] 07/11/2023 07/05/2024 Active documented as of this encounter (statuses as of 09/30/2023) Active Problems Problem Noted Date Diagnosed Date [...] as of this encounter (statuses as of 09/30/2023) Resolved Problems Problem Noted Date Diagnosed Date [...] as of this encounter (statuses as of 09/30/2023) Immunizations Name Administration Dates Next Due COVID-19 mRNA, LNP-s, No Pre serve, 2-Dose Series (TitanFile) 03/16/2021,08/12/2020,07/22/2020 Covid-19, Mrna, Lnp-s, Pf, B ivalent, [...] Sign Reading Time Taken Comments Blood Pressure 124/54 09/28/2023 1:18 PM EDT Pulse 72 09/28/2023 1:18 PM EDT Temperature - - Respiratory Rate 20 09/28/2023 1:18 PM EDT Oxygen Saturation - - Inhaled Oxygen Concentration - - Weight 50.7 kg (111 lb 12.8 oz) 09/28/2023 1:18 PM EDT Height - - Body Mass Index 18.6 09/21/2023 2:54 PM EDT documented in this encounter Functional [...] as of this encounter Progress Notes * Allan Siddiqui PA-C - 09/28/2023 1:31 PM EDT History of Present Illness: Sharmin Jackson is a 78 year old female followed by Dr. Carbajal, returning today for routine cardiology follow-up. Patient hospitalized at [facility] in June 2023 with altered mental status and weakness, sepsis secondary to aspiration pneumonia. During hosp italization patient lapsed in to atrial fibrillation with a rapid ventricular response. Initial treatments included IV Lopressor and IV digoxin then oral metoprolol tartrate with patient spontaneously converting back to sinus rhythm on July 21, 2023 at 03:41, without conversion pause. Anticoagulation was initially deferred due to anemia, thrombocytopenia, and oral wounds. Ultimately, patient wasprescribed carvedilol and reduced dose Eliquis anticoagulation. On July 21, 2023 a 17 beat run of wide complex tachycardia was observed, asymptomatic. Hypokalemia was noted and corrected with oral potasium supplementation. Elevated troponin felt to represent demand ischemia with resting echocardiography on July 24, 2023 revealing normal systolic function, EF 60 to 65%, without wall motion abnormality. Additional echocardiographic findings notable for moderate concentric LVH, grade 2 diastolicdysfunction, mild aortic valve sclerosis without stenosis, mild tricuspid regurgitation, moderate size left pleural effusion. Patient notes being status post left sided thoracentesis, removal of 1 L of fluid on 08/27/2023 felt to represent a parapneumonic effusion. Breathing is currently good. No dyspnea. No pleuritic chest pain. No activity related chest pain. No palpitations. She chronically sleeps on two pillows because of aspiration issues. No PND. No peripheral edema. No lightheadedness, dizziness, near syncope, or syncope. No epistaxis, hemoptysis, melena, hematochezia, or hematuria. Patient Active Problem List Diagnosis History of tongue cancer Hx of breast cancer Sarcoidosis Dyslipidemia Gastroesophageal reflux disease with esophagitis Status post insertion of percutaneous endoscopic gastrostomy (PEG) tube (HCC) Acquired hypothyroidism Hypoglossal nerve paralysis Age-related osteoporosis without current pathological fracture Kidney stones Thoracic degenerative disc disease OAB (overactive bladder) Acute mastitis Paroxysmal atrial fibrillation (HCC) Pleural effusion Past Medical History: Diagnosis Date BMI less [...] Laterality Date CHANGE G-TUBE, PERC W/O IMAGING (CASTING SORTER/RN) 06/05/2016 EGD, FLEXIBLE, DIAGNOSTIC 11/27/2012 UPPER GI ENDOSCOPY DIAGNOSTIC performed by Jacob Santos MD at OR [facility] EGD, FLEXIBLE, DIAGNOSTIC 10/01/2013 eso stricture, sm HH/ESOPHAGOGASTRODUODENOSCOPY (EGD), FLEXIBLE, TRANSORAL, DIAGNOSTIC performed byJacob Santos MD at ENDOSCOPY [facility] EGD, FLEXIBLE, DIAGNOSTIC 02/05/2014 ESOPHAGOGASTRODUODENOSCOPY (EGD), FLEXIBLE, TRANSORAL, DIAGNOSTIC performed by Adrian Muñoz MD at ENDOSCOPY [facility] EGD, FLEXIBLE, DIAGNOSTIC N/A 03/18/2014 ESOPHAGOGASTRODUODENOSCOPY (EGD), FLEXIBLE, TRANSORAL, DIAGNOSTIC performed by Adrian Muñoz MD at ENDOSCOPY [facility] EGD, FLEXIBLE, DIAGNOSTIC 07/28/2014 ESOPHAGOGASTRODUODENOSCOPY (EGD), FLEXIBLE, TRANSORAL, DIAGNOSTIC performed by Adrian Muñoz MD at ENDOSCOPY [facility] EGD, FLEXIBLE, DIAGNOSTIC 12/25/2014 ESOPHAGOGASTRODUODENOSCOPY (EGD), FLEXIBLE, TRANSORAL, DIAGNOSTIC performed by Isaiah Sen MD at ENDOSCOPY [facility] EGD, FLEXIBLE, DIAGNOSTIC 05/13/2015 PEG placement/inpt [facility] EGD, FLEXIBLE, DIAGNOSTIC 05/10/2015 radiation changes, eso web, HH/inpt [facility] ESOPHAGOSCOPY, FLEXIBLE, TRANSENDOSCOPIC DILATION <30MM 07/09 [place] with dilatation PARTIAL MASTECTOMY 04/07/05 Left PM/SLNB at [facility] Dr. Sharma THORACOTOMY WITH EXPLORATION 1974 Thoracotomy,with biopsy Family History Problem Relation Name Age of Onset Cancer Mother Colon Thyroid Disorder Mother Diabetes Father Heart Disorder Father Hypertension Father Stroke Father Family Status Relation Status Mo at age 92 old age, osteoprosis, colon cancer age 80 Fa at age 80 [place], DM, HTN Bro Alive lung surgery for sarcoidosis Bro Alive Bro Alive [place] Alive Son Alive Social History Socioeconomic History Marital status: Spouse [...] on file Food Insecurity: No Food Insecurity (09/18/2023) Hunger Vital Sign Worried About Running Out of Food in the Last Year: Never true Ran Out of Food in the Last Year: Never true Transportation Needs: Not on file Physical Activity: Not on file Stress: Not on file Social Connections: Not on file Intimate Partner Violence: Not on file Housing Stability: Not on file Social History Social History Narrative Not on file Complete Review of Systems is as stated above, negative, or noncontributory. Review of patient's allergies indicates: Allergen Reactions Penicillins rash and given shot as a child, has tolerated augmentin ok as well as cephalosporin Current Outpatient Medications Medication Sig Dispense Refill [...] directed via G tube via bolus syringe 80051 mL 11 Apixaban 2.5 MG Oral Tablet (Eliquis) Administer 1 Tablet into G tube in the morning and 1 Tablet before bedtime. 60 Tablet 3 Carvedilol 6.25 MG Oral Tablet (Coreg) Administer 1 Tablet into G tube 2 times a day with morning and evening meals. 60 Tablet 3 Current Facility-Administered Medications Medication Dose Route Frequency Provider Last Rate Last Admin Denosumab (Prolia) subcut inj 60 mg 60 mg Subcutaneous Q6 Months Cr Gill PA-C 60 mg at 07/11/23 1315 OBJECTIVE/PHYSICAL EXAMINATION: BP 124/54 (BP Site: Right Arm, BP Position: Sitting, BP Cuff Size: Regular) | Pulse 72 | Resp 20 | Wt 50.7 kg (111 lb 12.8 oz) | BMI 18.60 kg/m | BSA 1.52 m General: No acute distress. Pleasant. Comfortable. Cooperative. Skin: No rash Eyes: PER. Conjunctiva pink, sclera clear. HENT: Normocephalic. Atraumatic. Neck: No carotid bruits. No JVD. No HJR. Heart: Artery might be laced regular at 64 beats per month occasional ectopic beat. Soft systolic murmur at the lower left sternal border. No rub. Lungs: Decrease. Diminished. No abnormal breath sounds auscultated. Abdomen: Peg tube Extremities: No clubbing, cyanosis, or edema. Pulses: Posterior tibial=2/4. Limited neurological examination: No focal deficit. Additional data: EKG on September 28, 2023 revealed sinus rhythm at 62 bpm with a first-degree AV block and occasional premature ventricular complexes, left anterior fascicular block. Possible old anteriorinfarct. QTc 462 ms. ASSESSMENT AND RECOMMENDATIONS/PLAN: Paroxysmal atrial fibrillation. Options of management discussed. Continue carvedilol as presently prescribed and reduced dose Eliquis anticoagulation, 2.5 mg twice a day; vis Peg. Asymptomatic 17 beat run of wide complex tachycardia on July 21, 2023, in the setting of hypokalemia. LV systolic function preserved. Continue beta-ayde therapy. Coronary artery calcification, history of left chest radiation in association with breast cancer. Would avoid aspirin given use of Eliquis anticoagulation. LDL cholesterol 91 mg/dL on September 22, 2022 Hypertension. ECHO in June 2023 with moderate concentric LVH, grade 2 diastolic dysfunction. Bloodpressure controlled. Volume status is compensated. Preserved LV systolic function. Ms. Jackson states that she understands the proposed plan and verbally consents. Patient to call with any questions, concerns, etc. Cardiac follow-up in 6 months or as needed. ER with emergencies. Allan Siddiqui PA-C Department of Cardiology I spent a total of 30-39 minutes (exact time 36 mins) on the date of service in preparation, delivery, and documentation of the care provided to Sharmin Jackson excluding any time spent in the performance of separately billed services. This visit involved medical care services related to at least oneserious condition or complex condition requiring ongoing care. This chart was completed in part util [employer] Speech Voice Recognition Software. Grammatical errors, random word insertions, prounoun errors, and incomplete sentences are an occasional consequence of this system due to software limitations, ambient noise, and hardware issues. Any formal questions or concerns about the content, text, or information contained within the body of this dictation should be directly addressed to the provider for clarification. documented in this encounter Procedure Notes * Glen Montague DO - 09/28/2023 1:29 PM EDTAssociated Order(s): EKG REASON FOR STUDY: Hospital f/u; new aflutter/afib;Hospital f/ CONCLUSIONS: Sinus rhythm with 1st degree AV block with occasional Premature ventricular complexes Left anterior fascicular block Possible Anterior infarct , age undetermined Abnormal ECG When compared with ECG of 19-Sep-2022 13:34, Premature ventricular complexes are now Present Premature atrial complexes are no longer Present Ventricular Rate: 62 Atrial Rate: 62 MD Interval: 268 QRS Duration: 92 QT/QTc: 456/462 ms P-R-T Normangee: 81 : -45 : 58 degrees documented in this encounter Nursing Notes * Sara Zelaya CMA - 09/28/2023 1:35 PM EDT Examination Room: 2 Name: Sharmin Jackson Date of : (1945). Reason for Visit: 5M f/u Interim Hospitalization(s): [facility] June sepsis; new aflutter/afib Thoracentesis @ [facility] 08/26 Problems/Concerns: Discuss meds - states she does not feel like she needs them. Chest Pain/SOB: Denies CP. SOB & fatigue with stairs. [facility] Discussed: Not applicable [facility] is a way you can talk to your provider online through e-mail. Would you like to sign up? I can activate it for you? DECLINES Patient was instructed to not get up on the exam table until directed and assisted by their provider; patient is to remain seated in the chair/ wheelchair/ exam table for fall prevention and safety reasons. Patient is aware to have assistance to step down off exam table with personnel. Patient voiced full comprehension of instructions. documented in this encounter Plan of Treatment Upcoming Encounters Date Type Department Care Team (Late st Contact Info) Description 10/17/2023 12:40 PM EDT Office Visit Pulmonary Medicine, [address] [place] [address] Ger Lu MD [address] [place] [address] 11/27/2023 11:00 AM EDT Office Visit Family Practice [facility] [address] [facility] [place] [address] Aayush Medrano MD [address] [facility] [place] [address] 01/03/2024 1:45 PM EDT Office Visit Gynecology/Obstetrics [facility] [address] [facility] [place] [address] Balbina Naik CRNP 132 [facility] [place] [address] 01/14/2024 1:30 PM EDT Nurse Only Rheumatology [place] [id number] [facility] [place] [address] Pf, Nurse Rheum [address] [place] [address] [place] [address] 04/02/2024 11:00 AM EST Office Visit Cardiology, [facility] 132 [facility] [place] [address] Allan Siddiqui, PA-C [facility] [place] [address] 07/09/2024 11:30 AM EDT Office Visit Urology, [facility] [address] [facility] [place] [address] Spencer Kumari MD [address] [address] [place] [address] Health Maintenance Due Date Last Done Comments COVID-19 Vaccine (2022-24 season) 2022 02/24/2022, 03/16/2021, 08/12/2020, Additional history [...] D LEVEL ONCE IN A LIFETIME-USE SMARTSET# [id number] Completed 06/27/2023, 01/10/2021, 09/25/2008 GARDASIL-HPV IMMUNIZATION SERIES [...] Procedure Name Priority Date/Time Associated Diagnosis Comments MD ECG ROUTINE ECG W/LEAST 12 LDS I&R ONLY Routine 09/28/2023 1:29 PM EDT Paroxysmal atrial fibrillation (HCC) documented in this encounter Results * EKG (09/28/2023 1:29 PM EDT) 09/28/2023 1:29 PM EDT Narrative Procedure Note Glen Montague, DO - 09/28/2023 1:29 PM EDT REASON FOR STUDY: Hospital f/u; new aflutter/afib;Hospital f/ CONCLUSIONS: Sinus rhythm with 1st degree AV block with occasional Prematureventricular complexes Left anterior fascicular block Possible Anterior infarct , age undetermined Abnormal ECG When compared with ECG of 19-Sep-2022 13:34, Premature ventricular complexes are now Present Premature atrial complexes are no longer Present Ventricular Rate: 62 Atrial Rate: 62 MD Interval: 268 QRS Duration: 92 QT/QTc: 456/462 ms P-R-T Norm[place]e: 81 : -45 : 58 degrees Allan Radha Chen HOFFMAN EKG [facility] CARDIOLOGY documented in this encounter Visit Diagnoses Diagnosis Paroxysmal atrial fibrillation (HCC)- Primary Atrial fibrillation Hospital discharge follow-up Other follow-up examination Coronary artery calcification seen on CT scan Dyslipidemia, goal LDL below 70 Other and unspecified hyperlipidemia documented in this encounter Advance Directives Healthcare Agents on File Name Relationship Healthcare Agent Relationshi p Communication Cristobal Jackson Spouse Health Care Repr esentative (appointed verbally by patient or by statute hierarchy) Care Teams Computer Game Designer Relationship Specialty Start Date End Date Aayush Medrano MD [address] [facility] [place] [address] PCP - General Family Medicine 08/23/23 documented as of this encounter"
--- OUTSIDE RECORDS SUMMARY | 2024-01-16 10:15 | External Medical Summary | Summary of Care ---
Author Name Unknown Organization [facility] Address [address] [place] [address] Phone [phone] Care Team Providers Care Thread Inspector Name Role Phone Aayush Medrano MD Primary Care Provider Reason for Visit * Reason Comments Trust Accounts Supervisor Return Encounter Details Date Type Department Care Team (Late st Contact Info) Description 09/21/2023 3:00 PM EDT Office Visit Gynecology/Obstetric s Prashanth Ambrocio [address] [place] [address] Balbina Naik CRNP [address] [place] [address] Pessary maintenance* Allergies Active Allergy Reactions Criticality Noted Date Comments Penicillins 10/25/1999 rash and given shot as a child, has tolerated augmentin ok as well as cephalosporin documented as of this encounter (statuses as of 09/21/2023) Medications Medication Sig Dispensed Refills Start Date [...] directed via G tube via bolus syringe 58956 mL 11 07/11/2023 Active Apixaban 2.5 MG [...] inj 60 mgIndications:Senile osteoporosis 60 mg SC [id number] 07/11/2023 07/05/2024 Active documented as of this encounter (statuses as of 09/21/2023) Active Problems Problem Noted Date Diagnosed Date [...] as of this encounter (statuses as of 09/21/2023) Resolved Problems Problem Noted Date Diagnosed Date [...] as of this encounter (statuses as of 09/21/2023) Immunizations Name Administration Dates Next Due COVID-19 mRNA, LNP-s, No Pre serve, 2-Dose Series (Syncbak) 03/16/2021,08/12/2020,07/22/2020 Covid-19, Mrna, Lnp-s, Pf, B ivalent, 30 Mcg, IM, 12 yrs and above (Syncbak) 02/24/2022 Pneumococcal Conjugate Vacc, 13 Valent (Prevnar) [...] Sign Reading Time Taken Comments Blood Pressure 110/64 09/21/2023 2:54 PM EDT Pulse - - Temperature - - Respiratory Rate - - Oxygen Saturation - - Inhaled Oxygen Concentration - - Weight - - Height 165.1 cm (5' 5") 09/21/2023 2:54 PM EDT Body Mass Index - - documented in [...] Progress Notes * Balbina Naik CRNP - 09/21/2023 3:00 PM EDT CC: Here for pessary check HPI: The pt is a 78 year old female with prolapse who has been using a 3 ring with support pessary for relief of her symptoms. She has no c/o today. She denies pelvic pressure, vaginal bleeding or soreness. She denies urinary burning, leaking of urine, or urinary retention. PE: pleasant white female in NAD BP 110/64 | Ht 1.651 m (5' 5") | BMI 18.24 kg/m | BSA 1.51 m Pelvic Exam- reveals pessary to be in place. It was gently removed and cleansed. Speculum exam reveals no abrasions or ulcerations. BM exam is negative. The pessary was coated with KY Jelly and replaced. A/P: Pessary maintenance (Primary) Follow Up: Return in about 3 months (around 12/22/2023) for pessary. | For: pessary CEASAR Timmons documented in this encounter Nursing Notes * Pinky Badillo LPN - 09/21/2023 2:53 PM EDT Pt is here for pessary check documented in this encounter Plan of Treatment Upcoming Encounters Date Type Department Care Team (Late st Contact Info) Description 09/28/2023 1:30 PM EDT Office Visit Cardiology, [facility] 132 [facility] [place] [address] Allan Siddiqui PA-C [address] [place] [address] 10/17/2023 12:40 PM EDT Office Visit Pulmonary Medicine, [facility] [address] [facility] [place] [address] Ger Lu MD [address] [place] [address] 11/27/2023 11:00 AM EDT Office Visit Family Practice [facility] [address] [facility] [place] [address] Aayush Medrano MD 132 [facility] [place] [address] 01/03/2024 1:45 PM EDT Office Visit Gynecology/Obstetrics [facility] 132 [facility] [place] [address] Balbina Naik CRNP 132 [facility] [place] [address] 01/14/2024 1:30 PM EDT Nurse Only Rheumatology [address] [place] [address] Pf, Nurse Rheum [address] [place] [address] [place] [address] 07/09/2024 11:30 AM EDT Office Visit Urology, [facility] 132 [facility] [place] [address] Spencer Kumari MD 27 [facility] [address] [place] [address] Health Maintenance Due [...] D LEVEL ONCE IN A LIFETIME-USE SMARTSET# [id number] Completed 06/27/2023, 01/10/2021, 09/25/2008 GARDASIL-HPV IMMUNIZATION SERIES [...] patient or by statute hierarchy) Care Teams Thread Inspector Relationship Specialty Start Date End Date Aayush Medrano MD [address] [place] [address] PCP - General Family Medicine 08/23/23 documented as of this encounter
--- OUTSIDE RECORDS SUMMARY | 2024-01-16 10:15 | External Medical Summary | Summary of Care ---
Author Name Unknown Organization [facility] Address [address] [place] [facility] [place] [address] Phone [phone] Care Team Providers Care Lathe Hand Name Role Phone Aayush Medrano MD Primary Care Provider Reason for Visit * Reason Onset Date Comments Advice 09/17/2023 Encounter Details Date Type Department Care Team (Late st Contact Info) Description 09/17/2023 Telephone Pulmonary Medicine, [facility] [address] [place] [address] Ger Lu MD [address] [facility] [address] Advice Allergies Active Allergy Reactions Criticality Noted [...] directed via G tube via bolus syringe 37871 mL 11 07/11/2023 Active Apixaban 2.5 MG [...] inj 60 mgIndications:Senile osteoporosis 60 mg SC [id number] 07/11/2023 07/05/2024 Active documented as of this [...] mRNA, LNP-s, No Pre serve, 2-Dose Series ([employer]) 03/16/2021,08/12/2020,07/22/2020 Covid-19, Mrna, Lnp-s, Pf, B ivalent, 30 Mcg, IM, 12 yrs and above ([employer]) 02/24/2022 Pneumococcal Conjugate Vacc, 13 Valent (Prevnar) [...] as of this encounter Progress Notes * Sherri Umanzor RN - 09/17/2023 9:33 AM EDT Patients called in to Case Management line, He is concerned that Sharmin developed a cough yesterday and is reporting discomfort in her back "inthe area where they drained that fluid". Denies fever or any other symptoms. Dr Lu & Dr. Medrano, Would you want her to repeat Xray today? Or other advice? Thank you documented in this encounter Miscellaneous Notes * Telephone Encounter - Sherri Umanzor RN - 09/17/2023 11:03 AM EDT Spoke with patients , he reports Sharmin will come today to complete the Xray * Telephone Encounter - Aayush Medrano MD - 09/17/2023 10:20 AM EDT Chest xray order for today with decubs. Recurrence/enlarging of known pleural effusion chief concern and most likely. documented in this encounter Plan of Treatment Upcoming Encounters Date Type Department Care Team (Late st Contact Info) Description 09/21/2023 3:00 PM EDT Office Visit Gynecology/Obstetrics [facility] [address] [place] [address] Balbina Naik CRNP [address] [place] [address] 09/28/2023 1:30 PM EDT Office Visit Cardiology, [facility] [address] [place] [address] Allan Siddiqui PA-C [address] [place] [address] 10/17/2023 12:40 PM EDT Office Visit Pulmonary Medicine, [facility] 132 [facility] [place] [address] Ger Lu MD [address] [place] [address] 11/27/2023 11:00 AM EDT Office Visit Family Practice [facility] 132 [facility] [place] [address] Aayush Medrano MD 132 [facility] [place] [address] 01/14/2024 1:30 PM EDT Nurse Only Rheumatology [address] [place] [address] Pf, Nurse Rheum [address] [place] [address] [place] [address] 07/09/2024 11:30 AM EDT Office Visit Urology, [facility] 132 [facility] [place] [address] Spencer Kumari MD 27 [facility] [address] [place] [address] Scheduled Orders Name Type Priority Associated Diagnoses Orde r Schedule XR CHEST 3 VIEWS Medical Imaging Routine Pleural effusion Ordered: 09/17/2023 Health Maintenance Due Date Last Done Comments [...] D LEVEL ONCE IN A LIFETIME-USE SMARTSET# [id number] Completed 06/27/2023, 01/10/2021, 09/25/2008 GARDASIL-HPV IMMUNIZATION SERIES [...] patient or by statute hierarchy) Care Teams Lathe Hand Relationship Specialty Start Date End Date Aayush Medrano MD 132 [place] [address] PCP - General Family Medicine 08/23/23 documented as of this encounter
--- OUTSIDE RECORDS SUMMARY | 2024-01-16 10:15 | External Medical Summary | Summary of Care ---
Author Name Unknown Organization [facility] Address [address] [place] [address] Phone [phone] Care Team Providers Care Form Stripper Name Role Phone Aayush Medrano MD Primary Care Provider Reason for Visit * Reason Onset Date Comments Advice 09/07/2023 Encounter Details Date Type Department Care Team (Late st Contact Info) Description 09/07/2023 Telephone Family Practice [facility] [place] [address] Aayush Medrano MD [address] [place] [address] Advice Allergies Active Allergy Reactions Criticality Noted Date Comments Penicillins 10/25/1999 rash and given shot as a child, has tolerated augmentin ok as well as cephalosporin documented as of this encounter (statuses as of 09/11/2023) Medications Medication Sig Dispensed Refills Start Date [...] directed via G tube via bolus syringe 54713 mL 11 07/11/2023 Active Apixaban 2.5 MG [...] inj 60 mgIndications:Senile osteoporosis 60 mg SC [id number] 07/11/2023 07/05/2024 Active documented as of this encounter (statuses as of 09/11/2023) Active Problems Problem Noted Date Diagnosed Date [...] as of this encounter (statuses as of 09/11/2023) Resolved Problems Problem Noted Date Diagnosed Date [...] as of this encounter (statuses as of 09/11/2023) Immunizations Name Administration Dates Next Due COVID-19 mRNA, LNP-s, No Pre serve, 2-Dose Series ([employer]) 03/16/2021,08/12/2020,07/22/2020 Covid-19, Mrna, Lnp-s, Pf, B ivalent, 30 Mcg, IM, 12 yrs and above ([employer]) 02/24/2022 Pneumococcal Conjugate Vacc, 13 Valent (Prevnar) [...] Telephone Encounter - Sherri Umanzor RN - 09/11/2023 4:15 PM EDT Late entry did speak with Cristobal about this. Patient had seen pulm and has a follow up appointment and was ordered repeat Xray * Telephone Encounter - Aayush Medrano [...] line asking if you would mind reviewing hSarmin's abdCT results documented in this encounter Plan of Treatment Upcoming Encounters Date Type Department Care Team (Late st Contact Info) Description 09/21/2023 3:00 PM EDT Office Visit Gynecology/Obstetrics [facility] [address] [place] [address] Balbina Naik CRNP [address] [place] [address] 09/28/2023 1:30 PM EDT Office Visit Cardiology, [facility] [address] [place] [address] Allan Siddiqui PA-C [address] [place] [address] 10/17/2023 12:40 PM EDT Office Visit Pulmonary Medicine, [facility] 132 [facility] [place] [address] Ger Lu MD [address] [place] [address] 11/27/2023 11:00 AM EDT Office Visit Family Practice [facility] 132 [facility] [place] [address] Aayush Medrano MD 132 [facility] [place] [address] 01/14/2024 1:30 PM EDT Nurse Only Rheumatology [address] [place] [address] Pf, Nurse Rheum [address] [place], [place] [address] [address] 07/09/2024 11:30 AM EDT Office Visit Urology, [facility] 132 [facility] [place] [address] Spencer Kumari MD 27 [facility] [address] [place] [address] Health Maintenance Due Date Last Done Comments [...] D LEVEL ONCE IN A LIFETIME-USE SMARTSET# [id number] Completed 06/27/2023, 01/10/2021, 09/25/2008 GARDASIL-HPV IMMUNIZATION SERIES [...] patient or by statute hierarchy) Care Teams Form Stripper Relationship Specialty Start Date End Date Aayush Medrano MD [address] [address] PCP - General Family Medicine 08/23/23 documented as of this encounter
--- OUTSIDE RECORDS SUMMARY | 2024-01-16 10:15 | External Medical Summary | Summary of Care ---
Author Name Unknown Organization [facility] Address [address] [place] [address] Phone [phone] Care Team Providers Care Steeping Press Tender Name Role Phone Aayush Medrano MD Primary Care Provider Reason for Visit * Reason Onset Date Comments Advice 07/04/2023 Encounter Details Date Type Department Care Team (Late st Contact Info) Description 07/04/2023 Telephone Family Practice [facility] [place] [address] Foster Zuniga MD [address] [place] [address] Advice Allergies Active Allergy Reactions Criticality Noted Date Comments Penicillins 10/25/1999 rash and given shot as a child, has tolerated augmentin ok as well as cephalosporin documented as of this encounter (statuses as of 10/03/2023) Medications Medication Sig Dispensed Refills Start Date [...] inj 60 mgIndications:Senile osteoporosis 60 mg SC [id number] 07/11/2023 07/05/2024 Active documented as of this encounter (statuses as of 10/03/2023) Active Problems Problem Noted Date Diagnosed Date [...] as of this encounter (statuses as of 10/03/2023) Resolved Problems Problem Noted Date Diagnosed Date [...] as of this encounter (statuses as of 10/03/2023) Immunizations Name Administration Dates Next Due COVID-19 mRNA, LNP-s, No Pre serve, 2-Dose Series ([employer]) 03/16/2021,08/12/2020,07/22/2020 Covid-19, Mrna, Lnp-s, Pf, B [...] encounter Miscellaneous Notes * Telephone Encounter - Reagan Avalos RN - 07/04/2023 11:02 AM EST Please see previous message. Called and spoke with patient's spouse Cristobal. He states patient is complaining of left eye pain, stating she thinks there is something in her eye. Cristobal said it started about 5 to 6 days ago. He also said her left breast is red and inflamed again. Informed Cristobal no appointments available today or tomorrow in clinic. Advised [facility] He verbalized understanding. He said he has been there before, and does not think they will do anything there. He asked if there is an eye doctor here? Advised him he would need to call eye doctor's office for appointment there. He verbalized understanding. Again recommended he take the patient to [facility] urgent care to be seen and he verbalized understanding. ERIKA. * Telephone Encounter - Mandy Carpio OSA - 07/04/2023 8:53 AM EST Cristobal- spouse calling on behalf of patient in regards to ongoing issues with L eye pain, and breastsoreness. Wanting to speak with someone in office in regards to this. Patient has had eye symptoms for 3-4 days and breast symptoms for 2 days. Would like to discuss further. documented in this encounter Plan of Treatment Upcoming Encounters Date Type Department Care Team (Late st Contact Info) Description 10/17/2023 12:40 PM EDT Office Visit Pulmonary Medicine, [facility] [address] [place] [address] Ger Lu MD [address] [facility] [address] 11/27/2023 11:00 AM EDT Office Visit Family Practice [facility] 132 [place] [address] Aayush Medrano MD [address] [place] [address] 01/03/2024 1:45 PM EDT Office Visit Gynecology/Obstetrics [facility] [address] [place] [address] Balbina Naik CRNP [address] [place] [address] 01/14/2024 1:30 PM EDT Nurse Only Rheumatology [address] [address] Pf, Nurse Rheum [facility]0 [facility] [place] [address] 04/02/2024 11:00 AM EST Office Visit Cardiology, [facility] [address] [facility] [place] [address] Allan Siddiqui PA-C [address] [place] [address] 07/09/2024 11:30 AM EDT Office Visit Urology, [facility] [address] [place] [address] Spencer Kumari MD [address] [place] [address] [place] [address] Health Maintenance Due Date Last Done Comments [...] D LEVEL ONCE IN A LIFETIME-USE SMARTSET# [id number] Completed 06/27/2023, 01/10/2021, 09/25/2008 GARDASIL-HPV IMMUNIZATION SERIES [...] patient or by statute hierarchy) Care Teams Steeping Press Tender Relationship Specialty Start Date End Date Aayush Medrano MD 132 [facility] [place] [address] PCP - General Family Medicine 08/23/23 documented as of this encounter
--- OUTSIDE RECORDS SUMMARY | 2024-01-16 10:15 | External Medical Summary | Summary of Care ---
Author Name Unknown Organization [facility] Address [address] [facility] [address] Phone [phone] Care Team Providers Care Pool Coordinator Name Role Phone Aayush Medrano MD Primary Care Provider Reason for Visit * Reason Onset Date Comments Test Results 10/09/2023 Cxray Encounter Details Date Type Department Care Team (Late st Contact Info) Description 10/09/2023 Telephone Pulmonary Medicine, [facility] [address] [place] [address] Ger Lu MD [address] [facility] [address] Test Results (Cxray) Allergies Active Allergy Reactions Criticality Noted Date Comments Penicillins 10/25/1999 rash and given shot as a child, has tolerated augmentin ok as well as cephalosporin documented as of this encounter (statuses as of 10/09/2023) Medications Medication Sig Dispensed Refills Start Date [...] directed via G tube via bolus syringe 99586 mL 11 07/11/2023 Active Apixaban 2.5 MG [...] inj 60 mgIndications:Senile osteoporosis 60 mg SC [id number] 07/11/2023 07/05/2024 Active documented as of this encounter (statuses as of 10/09/2023) Active Problems Problem Noted Date Diagnosed Date [...] as of this encounter (statuses as of 10/09/2023) Resolved Problems Problem Noted Date Diagnosed Date [...] as of this encounter (statuses as of 10/09/2023) Immunizations Name Administration Dates Next Due COVID-19 mRNA, LNP-s, No Pre serve, 2-Dose Series ([employer]) 03/16/2021,08/12/2020,07/22/2020 Covid-19, Mrna, Lnp-s, Pf, B ivalent, 30 Mcg, IM, 12 yrs and above ([employer]) 02/24/2022 Pneumococcal Conjugate Vacc, 13 Valent (Prevnar) [...] encounter Miscellaneous Notes * Telephone Encounter - Christina Cota LPN - 10/09/2023 6:43 AM EDT ----- Message from Ger Lu MD sent at 10/08/2023 3:26 PM EDT ----- XR CHEST 2 VIEWS - 09/17/2023 HISTORY "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 F/U Lt Effusion status" IMPRESSION Persistent small left pleural effusion. Results will be discussed with patient at follow-up. documented in this encounter Plan of Treatment Upcoming Encounters Date Type Department Care Team (Late st Contact Info) Description 10/17/2023 12:40 PM EDT Office Visit Pulmonary Medicine, [facility] [address] [place] [address] Ger Lu MD [address] [facility] [address] 11/27/2023 11:00 AM EDT Office Visit Family Practice [facility] [address] [address] Aayush Medrano MD [address] [place] [address] 01/03/2024 1:45 PM EDT Office Visit Gynecology/Obstetrics [facility] [address] [place] [address] Balbina Naik CRNP [address] [place] [address] 01/14/2024 1:30 PM EDT Nurse Only Rheumatology [address] [place] [address] Pf, Nurse Rheum [facility] [place] [address] 04/02/2024 11:00 AM EST Office Visit Cardiology, [facility] [address] [facility] [place] [address] Allan Siddiqui PA-C [address] [place] [address] 07/09/2024 11:30 AM EDT Office Visit Urology, [facility] [address] [place] [address] Spencer Kumari MD [address] [place] [address] [place] [address] Health Maintenance Due Date Last Done Comments [...] D LEVEL ONCE IN A LIFETIME-USE SMARTSET# [id number] Completed 06/27/2023, 01/10/2021, 09/25/2008 GARDASIL-HPV IMMUNIZATION SERIES [...] patient or by statute hierarchy) Care Teams Pool Coordinator Relationship Specialty Start Date End Date Aayush Medrano MD [address] [place] [address] PCP - General Family Medicine 08/23/23 documented as of this encounter
--- OUTSIDE RECORDS SUMMARY | 2024-01-16 10:15 | External Medical Summary | Summary of Care ---
Author Name Unknown Organization [facility] Address [address] [facility] [address] Phone [phone] Care Team Providers Care Pnp Name Role Phone Aayush Medrano MD Primary Care Provider Reason for Visit * Reason Onset Date Comments Advice 09/17/2023 Encounter Details Date Type Department Care Team (Late st Contact Info) Description 09/17/2023 Telephone Pulmonary Medicine, [facility] [address] [place] [address] Ger Lu MD [address] [facility] [address] Advice Allergies Active Allergy Reactions Criticality Noted Date Comments Penicillins 10/25/1999 rash and given shot as a child, has tolerated augmentin ok as well as cephalosporin documented as of this encounter (statuses as of 09/17/2023) Medications Medication Sig Dispensed Refills Start Date [...] directed via G tube via bolus syringe 88822 mL 11 07/11/2023 Active Apixaban 2.5 MG [...] inj 60 mgIndications:Senile osteoporosis 60 mg SC [id number] 07/11/2023 07/05/2024 Active documented as of this encounter (statuses as of 09/17/2023) Active Problems Problem Noted Date Diagnosed Date [...] as of this encounter (statuses as of 09/17/2023) Resolved Problems Problem Noted Date Diagnosed Date [...] as of this encounter (statuses as of 09/17/2023) Immunizations Name Administration Dates Next Due COVID-19 mRNA, LNP-s, No Pre serve, 2-Dose Series ([employer]) 03/16/2021,08/12/2020,07/22/2020 Covid-19, Mrna, Lnp-s, Pf, B ivalent, 30 Mcg, IM, 12 yrs and above ([employer]) 02/24/2022 Pneumococcal Conjugate Vacc, 13 Valent (Prevnar) [...] 9:00 AM EDT Office Visit Family Practice [facility] [address] [place] [address] Aayush Medrano MD [address] [place] [address] 09/21/2023 3:00 PM EDT Office Visit Gynecology/Obstetrics [facility] [address] [place] [address] Balbina Naik CRNP [address] [place] [address] 09/28/2023 1:30 PM EDT Office Visit Cardiology, [facility] [address] [place] [address] Allan Siddiqui PA-C [address] [place] [address] 10/17/2023 12:40 PM EDT Office Visit Pulmonary Medicine, [facility] [address] [place] [address] AlyGer ojeda MD [address] [place] [address] 11/27/2023 11:00 AM EDT Office Visit Family Practice [facility] 132 [facility] [place] [address] Aayush Medrano MD 132 [facility] [place] [address] 01/14/2024 1:30 PM EDT Nurse Only Rheumatology [address] [place] [address] Pf, Nurse Rheum [address] [place] [address] [place] [address] 07/09/2024 11:30 AM EDT Office Visit Urology, [facility] 132 [facility] [place] [address] Spencer Kumari MD 27 [facility] [place] [address] [place] [address] Scheduled Orders Name Type Priority Associated Diagnoses [...] D LEVEL ONCE IN A LIFETIME-USE SMARTSET# [id number] Completed 06/27/2023, 01/10/2021, 09/25/2008 GARDASIL-HPV IMMUNIZATION SERIES [...] patient or by statute hierarchy) Care Teams Pnp Relationship Specialty Start Date End Date Aayush Medrano MD [address] [place] [address] PCP - General Family Medicine 08/23/23 documented as of this encounter
--- OUTSIDE RECORDS SUMMARY | 2024-01-16 10:15 | External Medical Summary | Summary of Care ---
Author Name Unknown Organization [facility] Address [address] [place] [place] [address] Phone [phone] Care Team Providers Care Screener And Blender Operator Name Role Phone Aayush Medrano MD Primary Care Provider Reason for Visit * Reason Onset Date Comments Advice 09/17/2023 Encounter Details Date Type Department Care Team (Late st Contact Info) Description 09/17/2023 Telephone Pulmonary Medicine, [facility] [address] [place] [address] Ger Lu MD [address] [facility] [address] Advice Allergies Active Allergy [...] directed via G tube via bolus syringe 66935 mL 11 07/11/2023 Active Apixaban 2.5 MG [...] inj 60 mgIndications:Senile osteoporosis 60 mg SC [id number] 07/11/2023 07/05/2024 Active documented as of this [...] mRNA, LNP-s, No Pre serve, 2-Dose Series ([employer]) 03/16/2021,08/12/2020,07/22/2020 Covid-19, Mrna, Lnp-s, Pf, B ivalent, 30 Mcg, IM, 12 yrs and above ([employer]) 02/24/2022 Pneumococcal Conjugate Vacc, 13 Valent (Prevnar) [...] 9:00 AM EDT Office Visit Family Practice [facility] [address] [place] [address] Aayush Medrano MD [address] [place] [address] 09/21/2023 3:00 PM EDT Office Visit Gynecology/Obstetrics [facility] [address] [place] [address] Balbina Naik CRNP [address] [place] [address] 09/28/2023 1:30 PM EDT Office Visit Cardiology, [facility] [address] [place] [address] Allan Siddiqui PA-C [address] [place] [address] 10/17/2023 12:40 PM EDT Office Visit Pulmonary Medicine, [facility] [address] [address] Ger Lu MD [address] [place] [address] 11/27/2023 11:00 AM EDT Office Visit Family Practice [facility] 132 [facility] [place] [address] Aayush Medrano MD [address] [place] [address] 01/14/2024 1:30 PM EDT Nurse Only Rheumatology [address] [place] [address] Pf, Nurse Rheum [address] [place], [place] [address] [address] 07/09/2024 11:30 AM EDT Office Visit Urology, [facility] [address] [place] [address] Spencer Kumari MD 27 [facility] [address] [place] [address] Scheduled Orders Name Type Priority Associated Diagnoses [...] D LEVEL ONCE IN A LIFETIME-USE SMARTSET# [id number] Completed 06/27/2023, 01/10/2021, 09/25/2008 GARDASIL-HPV IMMUNIZATION SERIES [...] patient or by statute hierarchy) Care Teams Screener And Blender Operator Relationship Specialty Start Date End Date Aayush Medrano MD [address] [place] [address] PCP - General Family Medicine 08/23/23 documented as of this encounter
--- OUTSIDE RECORDS SUMMARY | 2024-01-16 10:16 | External Medical Summary | Summary of Care ---
Author Name Unknown Organization [facility] Address [address] [place] [address] Phone [phone] Care Team Providers Care Brake Repair Mechanic Name Role Phone Aayush Medrano MD Primary Care Provider Reason for Visit * Reason Onset Date Comments Med Request 07/10/2023 FYI 07/10/2023 Fax 07/10/2023 Encounter Details Date Type Department Care Team (Late st Contact Info) Description 07/10/2023 Telephone Family Practice [facility] 132 [facility] [place] [address] Foster Zuniga MD 132 [facility] [place] [address] Med Request; ; Fax Allergies Active Allergy Reactions Criticality Noted Date Comments Penicillins 10/25/1999 rash and given shot as a child, has tolerated augmentin ok as well as cephalosporin documented as of this encounter (statuses as of 08/31/2023) Medications Medication Sig Dispensed Refills Start Date [...] Tablet 5 05/14/2023 Active Fibersource HN Oral LiquidIndications: yancy protein-calorie malnutrition (HCC) Administer 6 cans daily as directed via G tube via bolus syringe 81766 mL 11 07/11/2023 Active Fibersource HN Oral LiquidIndications:Se yancy protein-calorie malnutrition (HCC) Administer 6 cans daily as directed via G tube via bolus syringe 14410 mL 11 08/17/2022 Discontinue d(Refill) Hospital, Clinic, or Other Facility Administered Medication Ordered Dose Route Frequency Start Date End Date Status Denosumab (Prolia) subcut inj 60 mgIndications:Senile osteoporosis 60 mg SC [id number] 07/11/2023 07/05/2024 Active documented as of this encounter (statuses as of 08/31/2023) Active Problems Problem Noted Date Diagnosed Date [...] as of this encounter (statuses as of 08/31/2023) Resolved Problems Problem Noted Date Diagnosed Date [...] as of this encounter (statuses as of 08/31/2023) Immunizations Name Administration Dates Next Due COVID-19 mRNA, LNP-s, No Pre serve, 2-Dose Series ([employer]) 03/16/2021,08/12/2020,07/22/2020 Covid-19, Mrna, Lnp-s, Pf, B ivalent, [...] Telephone Encounter - Sallie Smith LPN - 08/31/2023 12:50 PM EDT Form located and placed on [facility]'s desk to sign * Telephone Encounter - Todd Velasco OSA - 08/30/2023 2:35 PM EDT Received a call asking if fax was received by office. Name/Company sending fax: [facility] What fax is pertaining to: medical necessity form to be signed by Dr. Zuniga; feeding began on 07.11.23 Date(s) they sent request: today, 08.30.23 (and previously) Verified fax number they are sending to is correct (Y or N): YES Callback Number for the clinic to call to verified if fax was received: [phone] * Telephone Encounter - Sallie Smith LPN - 08/23/2023 11:38 AM EDT Called Nurys with [facility] [phone] Regarding form. Have not received, asked to refax to our office [phone] attn Sallie Osorio on form. * Telephone Encounter - Brinda Amaya OSA - 08/20/2023 12:05 PM EDT Nurys with [facility] re-faxing order for provider to sign letter of medicalnecessity. Insurance won't cover cost if provider doesn't sign form. * Telephone Encounter - Foster Zuniga MD - 07/11/2023 8:14 AM EDT Signed. documented in this encounter Plan of Treatment Upcoming Encounters Date Type Department Care Team (Late st Contact Info) Description 09/05/2023 1:40 PM EDT Office Visit Pulmonary Medicine, [facility] 132 [facility] [place] [address] Ger Lu MD [address] [place] [id number] 09/21/2023 3:00 PM EDT Office Visit Gynecology/Obstetrics [facility] 132 [facility] [place] [address] Balbina Naik CRNP 132 [facility] [place] [address] 09/28/2023 1:30 PM EDT Office Visit Cardiology, [facility] 132 [facility] [place] [address] Allan Siddiqui PA-C [facility] [place] [address] 11/27/2023 11:00 AM EDT Office Visit Family Practice [facility] 132 [facility] [place] [address] Aayush Medrano MD 132 [facility] [place] [address] 01/14/2024 1:30 PM EDT Nurse Only Rheumatology [address] [place] [address] Pf, Nurse Rheum [address] [place] [address] [place] [address] 07/09/2024 11:30 AM EDT Office Visit Urology, [facility] 132 [facility] [place] [address] Spencer Kumari MD [address] [facility] [address] [place] [address] Health Maintenance Due [...] D LEVEL ONCE IN A LIFETIME-USE SMARTSET# [id number] Completed 06/27/2023, 01/10/2021, 09/25/2008 GARDASIL-HPV IMMUNIZATION SERIES [...] patient or by statute hierarchy) Care Teams Brake Repair Mechanic Relationship Specialty Start Date End Date Aayush Medrano MD 132 [place] [address] PCP - General Family Medicine 08/23/23 documented as of this encounter
--- OUTSIDE RECORDS SUMMARY | 2024-01-16 10:16 | External Medical Summary | Summary of Care ---
Author Name Unknown Organization [facility] Address [address] [facility] [place] [address] Phone [phone] Care Team Providers Care Compliance Consultant Name Role Phone Aayush Medrano MD Primary Care Provider Reason for Visit * Reason Onset Date Comments Test Results 08/27/2023 F/U 08/26 Thorace ntesis Encounter Details Date Type Department Care Team (Late st Contact Info) Description 08/27/2023 Telephone Pulmonary Medicine Patrick Lemus [address] [place] [phone] Martir Khalil MD [address] [place] [address] Test Results (F/U 08/26 Thoracentesis) Allergies Active Allergy Reactions Criticality Noted Date [...] directed via G tube via bolus syringe 98893 mL 11 07/11/2023 Active Hospital, Clinic, or Other Facility Administered Medication Ordered Dose Route Frequency Start Date End Date Status Denosumab (Prolia) subcut inj 60 mgIndications:Senile osteoporosis 60 mg SC [id number] 07/11/2023 07/05/2024 Active documented as of this [...] mRNA, LNP-s, No Pre serve, 2-Dose Series ([facility]) 03/16/2021,08/12/2020,07/22/2020 Covid-19, Mrna, Lnp-s, Pf, B [...] encounter Miscellaneous Notes * Telephone Encounter - Ann Sandoval LPN - 08/31/2023 8:15 AM EDT Called the pt and spoke with her and her and gave them these results. They will schedule the repeat chest xray when they see Dr Lu on the . The both voiced understanding. * Telephone Encounter - Alexandra Larios LPN - 08/30/2023 5:16 PM EDT Attempted to call the patient, no answer and no voice mail. Pt is scheduled for follow up with Dr. Lu on 09/05/23. * Addendum Note - Martir Khalil MD - 08/30/2023 4:57 PM EDTAddended by: MARTIR KHALIL on: 08/30/2023 04:57 PM Modules accepted: Orders * Telephone Encounter - Martir Khalil MD - 08/30/2023 4:55 PM EDT Reviewed Exudative Chest xray in 4 weeks and follow Thank you * Telephone Encounter - Alexandra Larios LPN - 08/30/2023 9:42 AM EDT Thoracentesis results are back for your review. * Telephone Encounter - Berta Rossi OSA - 08/28/2023 8:53 AM EDT Patient is scheduled and aware of the date and time. * Telephone Encounter - Alexandra Larios LPN - 08/28/2023 8:22 AM EDT This patient lives in [place]. Could she follow with Dr. Lu at [facility]. * Telephone Encounter - Martir Khalil MD - 08/27/2023 12:32 PM EDT Patient had thoracentesis today Fluid analysis needs to be followed Berta Patient will need clinic appointment please Thank you documented in this encounter Plan of Treatment Upcoming Encounters Date Type Department Care Team (Late st Contact Info) Description 08/31/2023 11:15 AM EDT Imaging Radiology [facility] 1st Floor, [place] 132 [facility] [place] [address] 08/31/2023 11:30 AM EDT Scheduled Telephone Care Coordination and Integration [address] [place] [address] Lalitha Burnett, Community Health Laundry Superintendent [address] [place] [address] 09/05/2023 1:40 PM EDT Office Visit Pulmonary Medicine, [facility] 132 [facility] [place] [address] Ger Lu MD [address] [place] [address] 09/21/2023 3:00 PM EDT Office Visit Gynecology/Obstetrics [facility] [address] [place] [address] Balbina Naik CRNP [address] [place] [address] 09/28/2023 1:30 PM EDT Office Visit Cardiology, [facility] [address] [place] [address] Allan Siddiqui PA-C [address] [place] [address] 11/27/2023 11:00 AM EDT Office Visit Family Practice [facility] 132 [facility] [place] [address] Aayush Medrano MD [address] [place] [address] 01/14/2024 1:30 PM EDT Nurse Only Rheumatology [place] [phone] [facility] [place] [address] Pf, Nurse Rheum [facility] [place] [address] 07/09/2024 11:30 AM EDT Office Visit Urology, [facility] [address] [place] [address] Spencer Kumari MD 27 [facility] [address] [place] [address] Scheduled Orders Name Type Priority Associated Diagnoses Orde r Schedule XR CHEST 2 VIEWS Medical Imaging Routine Pleural effusion Expected: 09/30/2023 (Approximate), Expires: 09/29/2024 Health Maintenance Due Date Last Done [...] D LEVEL ONCE IN A LIFETIME-USE SMARTSET# [id number] Completed 06/27/2023, 01/10/2021, 09/25/2008 GARDASIL-HPV IMMUNIZATION SERIES [...] patient or by statute hierarchy) Care Teams Compliance Consultant Relationship Specialty Start Date End Date Aayush Medrano MD 132 [facility] [place] [address] PCP - General Family Medicine 08/23/23 documented as of this encounter
--- OUTSIDE RECORDS SUMMARY | 2024-01-16 10:16 | External Medical Summary | Summary of Care ---
Author Name Unknown Organization [facility] Address [address] [place] [address] Phone [phone] Care Team Providers Care Investment Banking Associate Name Role Phone Aayush Medrano MD Primary Care Provider Reason for Visit * Reason Onset Date Comments Med Request 07/10/2023 FYI 07/10/2023 Fax 07/10/2023 Encounter Details Date Type Department Care Team (Late st Contact Info) Description 07/10/2023 Telephone Family Practice [facility] 132 [facility] [place] [address] Foster Zuniga MD 132 [facility] [place] [address] Med Request; ; Fax Allergies Active Allergy [...] directed via G tube via bolus syringe 69456 mL 11 07/11/2023 Active Fibersource HN Oral LiquidIndications:Se yancy protein-calorie malnutrition (HCC) Administer 6 cans daily as directed via G tube via bolus syringe 95977 mL 11 08/17/2022 Discontinue d(Refill) Hospital, Clinic, or Other Facility Administered Medication Ordered Dose Route Frequency Start Date End Date Status Denosumab (Prolia) subcut inj 60 mgIndications:Senile osteoporosis 60 mg SC [id number] 07/11/2023 07/05/2024 Active documented as of this [...] mRNA, LNP-s, No Pre serve, 2-Dose Series ([employer]) 03/16/2021,08/12/2020,07/22/2020 Covid-19, Mrna, Lnp-s, Pf, B ivalent, [...] encounter Miscellaneous Notes * Telephone Encounter - aSllie Smith LPN - 08/31/2023 3:17 PM EDT Form signed and faxed back. Copy in scanning * Telephone Encounter - Sallie Smith LPN - 08/31/2023 12:50 PM EDT [facility] * Telephone Encounter - [...] call to verified if fax was received: [phone] * Telephone Encounter - Sallie Smith LPN - 08/23/2023 11:38 AM EDT Called Nurys with [facility] [phone] Regarding form. Have not received, asked to refax to our office [phone] attjames Osorio on form. * Telephone Encounter - [...] 1:40 PM EDT Office Visit Pulmonary Medicine, [facility] 132 [facility] [place] [address] Ger Lu MD [address] [place] [address] 09/21/2023 3:00 PM EDT Office Visit Gynecology/Obstetrics [facility] [address] [place] [address] Balbina Naik CRNP [address] [place] [address] 09/28/2023 1:30 PM EDT Office Visit Cardiology, [facility] [place] [address] Allan Siddiqui, PARachellC [address] [place] [address] 11/27/2023 11:00 AM EDT Office Visit Family Practice [facility] [address] [place] [address] Aayush Medrano MD [address] [place] [address] 01/14/2024 1:30 PM EDT Nurse Only Rheumatology [place] [address] [facility] [place] [address] Pf, Nurse Rheum [address] [place] [address] [place] [address] 07/09/2024 11:30 AM EDT Office Visit Urology, [facility] [address] [place] [address] Spencer Kumari MD 27 [facility] [address] [place] [address] Health Maintenance [...] D LEVEL ONCE IN A LIFETIME-USE SMARTSET# [id number] Completed 06/27/2023, 01/10/2021, 09/25/2008 GARDASIL-HPV IMMUNIZATION SERIES [...] patient or by statute hierarchy) Care Teams Investment Banking Associate Relationship Specialty Start Date End Date Aayush Medrano MD 132 [place] [address] PCP - General Family Medicine 08/23/23 documented as of this encounter
--- OUTSIDE RECORDS SUMMARY | 2024-01-16 10:16 | External Medical Summary | Summary of Care ---
Author Name Unknown Organization [facility] Address [address] [place] [address] Phone [phone] Care Team Providers Care High Density Talc Coater Operator Name Role Phone Aayush Medrano MD Primary Care Provider Encounter Details Date Type Department Care Team (Late st Contact Info) Description 08/31/2023 11:30 AM EDT Scheduled Telephone Care Coordination and Integration [address] [place], [place] [phone] Lalitah Burnett Community Health Director Translational [address] [place] [address] Allergies Active Allergy Reactions Criticality Noted Date [...] directed via G tube via bolus syringe 38800 mL 11 07/11/2023 Active Apixaban 2.5 MG [...] inj 60 mgIndications:Senile osteoporosis 60 mg SC [id number] 07/11/2023 07/05/2024 Active documented as of this [...] site, initial encounter 04/16/2023 Bacterial pneumonia 09/30/2021 06/03/20 22 Severe protein-calorie malnutrition 06/04/2019 02/15/2021 Peripheral [...] mRNA, LNP-s, No Pre serve, 2-Dose Series ([employer]) 03/16/2021,08/12/2020,07/22/2020 Covid-19, Mrna, Lnp-s, Pf, B ivalent, 30 Mcg, IM, 12 yrs and above ([employer]) 02/24/2022 Pneumococcal Conjugate Vacc, 13 Valent (Prevnar) [...] as of this encounter Progress Notes * Lalitha Burnett Community Health Director Translational - 08/31/2023 11:26 AM EDT Telemedicine visit: No Community Health Director Translational (BRITTNEY) documentation: [facility] week 4 f/u call per [facility], left documented in this encounter Plan of Treatment Upcoming Encounters Date Type Department Care Team (Late st Contact Info) Description 09/05/2023 1:40 PM EDT [facility] [place] [address] Ger Lu MD [address] [facility] [place] [address] 09/21/2023 3:00 PM EDT Office Visit Gynecology/Obstetrics [facility] [address] [place] [address] Balbina Naik CRNP [address] [place] [address] 09/28/2023 1:30 PM EDT Office Visit Cardiology, [facility] [address] [place] [address] Allan Siddiqui PA-C [address] [place] [address] 11/27/2023 11:00 AM EDT Office Visit Family Practice [facility] [address] [place] [address] Aayush Medrano MD [address] [place] [address] 01/14/2024 1:30 PM EDT Nurse Only Rheumatology [address] [place] [address] Pf, Nurse Rheum [address] [place] [address] [place] [address] 07/09/2024 11:30 AM EDT Office Visit Urology, [facility] [place] [address] Spencer Kumari MD [address] [place] [address] [place] [address] Health Maintenance Due [...] D LEVEL ONCE IN A LIFETIME-USE SMARTSET# [id number] Completed 06/27/2023, 01/10/2021, 09/25/2008 GARDASIL-HPV IMMUNIZATION SERIES [...] patient or by statute hierarchy) Care Teams High Density Talc Coater Operator Relationship Specialty Start Date End Date Aayush Medrano MD [address] [place] [address] PCP - General Family Medicine 08/23/23 documented as of this encounter
--- OUTSIDE RECORDS SUMMARY | 2024-01-16 10:16 | External Medical Summary | Summary of Care ---
Author Name Unknown Organization [facility] Address [address] [place] [address] Phone [phone] Care Team Providers Care Director Cost Name Role Phone Aayush Medrano MD Primary Care Provider Reason for Visit * Reason Comments Follow Up Encounter Details Date Type Department Care Team (Late st Contact Info) Description 09/05/2023 1:40 PM EDT Office Visit Pulmonary Medicine, [facility] [address] [place] [address] Ger Lu MD [address] [facility] [address] Pleural effusion*; Paroxysmal atrial fibrillation (HCC); Gastroesophageal reflux disease with esophagitis, unspecified whether hemorrhage; Sarcoidosis; History of tongue cancer; Hx of breast cancer; Status post insertion of percutaneous endoscopic gastrostomy (PEG) tube (HCC) Allergies Active Allergy Reactions Criticality Noted Date Comments Penicillins 10/25/1999 rash and given shot as a child, has tolerated augmentin ok as well as cephalosporin documented as of this encounter (statuses as of 09/05/2023) Medications Medication Sig Dispensed Refills Start Date [...] directed via G tube via bolus syringe 54194 mL 11 07/11/2023 Active Apixaban 2.5 MG [...] inj 60 mgIndications:Senile osteoporosis 60 mg SC [id number] 07/11/2023 07/05/2024 Active documented as of this encounter (statuses as of 09/05/2023) Active Problems Problem Noted Date Diagnosed Date [...] as of this encounter (statuses as of 09/05/2023) Resolved Problems Problem Noted Date Diagnosed Date [...] as of this encounter (statuses as of 09/05/2023) Immunizations Name Administration Dates Next Due COVID-19 mRNA, LNP-s, No Pre serve, 2-Dose Series ([employer]) 03/16/2021,08/12/2020,07/22/2020 Covid-19, Mrna, Lnp-s, Pf, B ivalent, 30 Mcg, IM, 12 yrs and above ([employer]) 02/24/2022 Pneumococcal Conjugate Vacc, 13 Valent (Prevnar) [...] Sign Reading Time Taken Comments Blood Pressure 138/72 09/05/2023 1:25 PM EDT Pulse 68 09/05/2023 1:25 PM EDT Temperature 36.9 C (98.4 F) 09/05/2023 1:25 PM ED T Respiratory Rate 20 09/05/2023 1:25 PM EDT Oxygen Saturation 99% 09/05/2023 1:26 PM EDT ra, amb Inhaled Oxygen Concentration - - Weight 50.5 kg (111 lb 6.4 oz) 09/05/2023 1:25 P M EDT Height 165.1 cm (5' 5") 09/05/2023 1:25 PM EDT Body Mass Index 18.54 09/05/2023 1:25 PM EDT documented in this encounter Functional [...] Progress Notes * Ger Lu MD - 09/05/2023 1:47 PM EDT 09/05/2023 Pulmonary Medicine, [address] [id number] Sharmin Jackson 1945 female 78 year old Attending Physician Documentation: 78-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 Patient describes stable respiratory symptoms status. Chronic peg tube status secondary to dysphagia and partial glossectomy status. 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 Patient denies nocturnal respiratory symptoms, purulent expectoration. Denies lower extremity edema. Pleural fluid cytology was negative for malignancy, predominantly neutrophilic fluid, exudative chemistry, AFB and cultures were negative. Follow-up chest x-ray 08/31/2023 shows residual left pleural effusion. Physical examination today shows elderly female with torticollis , fixed neck flexion, adequate airentry with minimal wheezing, 2 fingerbreadths dullness left base, regular cardiac rhythm, no evidence of volume overload and nonlateralizing Neuro examination. Overall picture consistent with parapneumonic effusion following recent left lung pneumonia. Continued radiologic surveillance is recommended. Repeat chest x-ray in 4 weeks with clinic follow-up in 6weeks recommended. Patient was advised to maintain physical activity status in contact the office with any change in respiratory symptoms status. Pulmonary clinic follow-up in 6 weeks. Data review: XR CHEST 2 VIEWS-09/03/2023 12:22 pm FINDINGS [...] (HCC) Follow Up: Return in about 6 weeks (around 10/17/2023) for Clinic Visit. 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 MMRC Dyspnea Scale = 2 (On level ground, I walk slower than people of the same age because of breathlessness or have to stop for breath when walking at my own) Interm History/Respiratory Symptoms Cough: no Hemoptysis: no Sinus Symptoms: congestion Hospitalizations: [facility] 07/17-07/27/23 sepsis ED Trips: 07/18/23 Triggers: exertion Nocturnal: no problems, sleeps with 2 pillows CPAP/BiPAP/O2: no DME Supplier: n/a Flu Vaccine: 2022 Pneumovax: 2019 Prevnar: 2018 COVID 19: x 4 Objective Filed Vitals: 09/05/23 1325 09/05/23 1326 BP: 138/72 Pulse: 68 Resp: 20 Temp: 36.9 C (98.4 F) TempSrc: Tympanic SpO2: 99% 99% Weight: 50.5 kg (111 lb 6.4 oz) Height: 1.651 m (5' 5") Exam: [...] patient: XR CHEST 2 VIEWS Result Date: 09/05/2023 [...] compliance with act 112, the ARUNA (radiology aoc operations intelligence officer) was contacted to invoke system generated communication of the patient's results. CT ABD/PELVIS WO IV/ORAL CONTRAST Result Date: 06/30/2023 IMPRESSION Bilateral nephrolithiasis. DEXA SCAN/BONE MINERAL AXIAL Result Date: 05/23/2023 S: Fracture risk is based on current National Osteoporosis Foundation (www.nof.org) Clinicians Guide and [place] Association of Clinical Endocrinology (AACE) Guidelines (www.aace.com) and the application of current WHO FRAX tool (https://www.dedrick.ac.uk/FRAX/) as well as the 2017 [place] [employer] Glucocorticoid Induced Osteoporosis (GIOP) Guidelines (rheumatology.org/Practice-Quality/Clinical-Support/Sfyaspgj-Mdwqpgro-Joooz lines) using Bone mineral density derived T-scoresand [...] the National Osteoporosis Foundation website (www.nof.org) and [place] Association of Clinical Endocrinology (AACE-www.aace.com). Osteoporosis prevention [...] carbonate and calcium citrate are common calcium lyon pplement choices in most local pharmacies. If the patient is taking a proton pump inhibitor, then calcium citrate should be the preferred supplement, if that is necessary. NOF guidelines for vitamin D are 800 to 1000 units of vitamin D3 daily. However, this may best be guided by measurement of 25-OH vitamin-D level, aiming for a level between 30 to 50 units (ng/ml). Additional information can be found at the FRAX website (https://www.dedrick.ac.uk/FRAX/), and the [place] [employer] Rheumat[employer] website (https://www.rheumatology.org/Practice-Quality/Clinical-Support/Clinical-Pr actice-Guidelines). 1. Treatment with a bisphosphonate (such as Fosamax/Alendronate, Actonel/Risedronate, or Boniva/Ibandronate) should be considered. If the patient is unable to use an oral bisphosphonate, another agent such as IV bisphosphonates (Boniva/Ibandronate or Reclast/Zoledronic Acid ), Prolia/Denosumab Forteo/Teriparatide, Tymlos/Abaloparatide, Evenity/Romosozumab, or a selective estrogen receptor modulator (Evista/Raloxifene) should be considered. Secondary causes of low bone density should be considered. A 25-OH Vitamin D, serum calcium, and creatinine should be obtained. Other studies can beconsidered which would include a PTH, IEP, TSH, or Testosterone (in men). (For users of [employer] thereis an osteoporosis Smart Set #1146). If there are questions about how to best manage this high riskpatient, consideration can be given to referral to [facility] ([facility]opor[facility]). To place a consult, type in [facility] under orders in [employer] Alternatively, an "ASK-a-DOC" question can be sent toany Exhibit Artist or Hood Fitter in the [employer] System - You can request a specific physician to answer your question or you can use the physician responsible for ASK-a-DOC that day. 2. Given the patient's Z-score (comparison with age matched controls) which is below 1.0, one should considersecondary causes of low bone mineral density. A 25-OH Vitamin D, serum calcium, and creatinine should be obtained. Other studies can be considered which would include a PTH, IEP, TSH, or Testosterone(in men). For [facility] Providers, use the OSTEOPOROSIS Smart Set [1146] 3. A repeat study should be considered in 2 years, after therapy is started MINI BATRES M.D. [facility] Certified Clinical Membership Sales Manager Department of Rheumatology [facility] Available Radiologic data was reviewed by me [...] Laterality Date CHANGE G-TUBE, PERC W/O IMAGING (3D DESIGNER/RN) 06/05/2016 EGD, FLEXIBLE, DIAGNOSTIC 11/27/2012 UPPER GI ENDOSCOPY DIAGNOSTIC performed by Jacob Santos MD at OR [facility] EGD, FLEXIBLE, DIAGNOSTIC 10/01/2013 eso stricture, sm HH/ESOPHAGOGASTRODUODENOSCOPY (EGD), FLEXIBLE, TRANSORAL, DIAGNOSTIC performed byJacob Santos MD at ENDOSCOPY [facility] EGD, FLEXIBLE, DIAGNOSTIC 02/05/2014 ESOPHAGOGASTRODUODENOSCOPY (EGD), FLEXIBLE, TRANSORAL, DIAGNOSTIC performed by Adrian Muñoz MD at ENDOSCOPY [facility] EGD, FLEXIBLE, DIAGNOSTIC N/A 03/18/2014 ESOPHAGOGASTRODUODENOSCOPY (EGD), FLEXIBLE, TRANSORAL, DIAGNOSTIC performed by Adrian Muñoz MD at ENDOSCOPY [facility] EGD, FLEXIBLE, DIAGNOSTIC 07/28/2014 ESOPHAGOGASTRODUODENOSCOPY (EGD), FLEXIBLE, TRANSORAL, DIAGNOSTIC performed by Adrian Muñoz MD at ENDOSCOPY [facility] EGD, FLEXIBLE, DIAGNOSTIC 12/25/2014 ESOPHAGOGASTRODUODENOSCOPY (EGD), FLEXIBLE, TRANSORAL, DIAGNOSTIC performed by Isaiah Sen MD at ENDOSCOPY [facility] EGD, FLEXIBLE, DIAGNOSTIC 05/13/2015 PEG placement/inpt [facility] EGD, FLEXIBLE, DIAGNOSTIC 05/10/2015 radiation changes, eso web, HH/inpt [facility] ESOPHAGOSCOPY, FLEXIBLE, TRANSENDOSCOPIC DILATION <30MM 07/09 [place] with dilatation PARTIAL MASTECTOMY 04/07/05 Left PM/SLNB at [facility] Dr. Sharma THORACOTOMY WITH EXPLORATION 1974 [...] Yes Comment: occ Social Determinants of Health Food Insecurity: No Food Insecurity (11/30/2022) Hunger Vital Sign Worried About Running Out of Food in the Last Year: Never true Ran Out of Food in the Last Year: Never true Family History Problem Relation Age of Onset Cancer Mother Colon Thyroid Disorder Mother Diabetes Father Heart Disorder Father Hypertension Father Stroke Father Review of patient's allergies indicates: Allergen Reactions Penicillins rash and given shot as a child, has tolerated augmentin ok as well as cephalosporin documented in this encounter Nursing Notes * Christina Cota LPN - 09/05/2023 1:22 PM EDT Pt is here for f/u thoracentesis. MMRC Dyspnea Scale = 2 (On level ground, I walk slower than people of the same age because of breathlessness or have to stop for breath when walking at my own) Interm History/Respiratory Symptoms Cough: no Hemoptysis: no Sinus Symptoms: congestion Hospitalizations: [facility] 07/17-07/27/23 sepsis ED Trips: 07/18/23 Triggers: exertion Nocturnal: no problems, sleeps with 2 pillows CPAP/BiPAP/O2: no DME Supplier: n/a Flu Vaccine: 2022 Pneumovax: 2019 Prevnar: 2018 COVID 19: x 4 documented in this encounter Plan of Treatment Upcoming Encounters Date Type Department Care Team (Late st Contact Info) Description 09/21/2023 3:00 PM EDT Office Visit Gynecology/Obstetrics [facility] [address] [place] [address] Balbina Naik CRNP [address] [place] [address] 09/28/2023 1:30 PM EDT [facility] [address] [place] [address] Allan Siddiqui PA-C 132 [facility] [place] [address] 10/17/2023 12:40 PM EDT Office Visit Pulmonary Medicine, [facility] 132 [facility] [place] [address] Ger Lu MD [address] [facility] [place] [address] 11/27/2023 11:00 AM EDT Office Visit Family Practice [facility] [address] [facility] [place] [address] Aayush Medrano MD 132 [facility] [place] [address] 01/14/2024 1:30 PM EDT Nurse Only Rheumatology [facility] [address] [facility] [place] [address] Pf, Nurse Rheum [address] [facility] [place] [address] 07/09/2024 11:30 AM EDT Office Visit Urology, [facility] [address] [facility] [place] [address] Spencer Kumari MD 27 [facility] [address] [place] [address] Scheduled Orders Name Type Priority Associated Diagnoses Orde r Schedule XR CHEST 2 VIEWS Medical Imaging Routine Pleural effusion Ordered: 09/05/2023 Health Maintenance Due Date Last Done Comments [...] D LEVEL ONCE IN A LIFETIME-USE SMARTSET# [id number] Completed 06/27/2023, 01/10/2021, 09/25/2008 GARDASIL-HPV IMMUNIZATION SERIES [...] Diagnosis Pleural effusion- Primary Unspecified pleural effusion Paroxysmal atrial fibrillation (HCC) Atrial fibrillation Gastroesophageal reflux disease with esophagitis, unspecified whether hemorrhage Sarcoidosis History of tongue cancer Personal history of malignant neoplasm of tongue Hx of breast cancer Personal history of malignant neoplasm of breast Status post insertion of percutaneous endoscopic gastrostomy (PEG) tube (HCC) documented in this encounter Advance Directives Healthcare Agents on File Name Relationship Healthcare Agent Relationshi p Communication Cristobal Manuel Spouse Health Care Repr esentative (appointed verbally by patient or by statute hierarchy) Care Teams Director Cost Relationship Specialty Start Date End Date Aayush Medrano MD [address] [place] [address] PCP - General Family Medicine 08/23/23 documented as of this encounter
--- OUTSIDE RECORDS SUMMARY | 2024-01-16 10:17 | External Medical Summary | Summary of Care ---
Author Name Unknown Organization [facility] Address [address] [facility] [place] [address] Phone [phone] Care Team Providers Care Legal Summer Intern Name Role Phone Aayush Medrano MD Primary Care Provider Reason for Visit * Reason Onset Date Comments Test Results 08/27/2023 F/U 08/26 Thorace ntesis Encounter Details Date Type Department Care Team (Late st Contact Info) Description 08/27/2023 Telephone Pulmonary Medicine Patrick Lemus [address] [place] [address] Martir Khalil MD [address] [place] [address] Test Results (F/U 08/26 Thoracentesis) Allergies Active Allergy Reactions Criticality Noted Date Comments Penicillins 10/25/1999 rash and given shot as a child, has tolerated augmentin ok as well as cephalosporin documented as of this encounter (statuses as of 08/30/2023) Medications Medication Sig Dispensed Refills Start Date [...] directed via G tube via bolus syringe 98499 mL 11 07/11/2023 Active Hospital, Clinic, or Other Facility Administered Medication Ordered Dose Route Frequency Start Date End Date Status Denosumab (Prolia) subcut inj 60 mgIndications:Senile osteoporosis 60 mg SC [id number] 07/11/2023 07/05/2024 Active documented as of this encounter (statuses as of 08/30/2023) Active Problems Problem Noted Date Diagnosed Date [...] as of this encounter (statuses as of 08/30/2023) Resolved Problems Problem Noted Date Diagnosed Date [...] as of this encounter (statuses as of 08/30/2023) Immunizations Name Administration Dates Next Due COVID-19 mRNA, LNP-s, No Pre serve, 2-Dose Series ([employer]) 03/16/2021,08/12/2020,07/22/2020 Covid-19, Mrna, Lnp-s, Pf, B ivalent, [...] encounter Miscellaneous Notes * Telephone Encounter - Alexandra Larios LPN - 08/30/2023 9:42 AM EDT Thoracentesis results are back for your review. * Telephone Encounter - Berta Rossi OSA - 08/28/2023 8:53 AM EDT Patient is scheduled and aware of the date and time. * Telephone Encounter - Alexandra Larios LPN - 08/28/2023 8:22 AM EDT This patient lives in [place]. Could she follow with Dr. Lu at [facility]. * Telephone Encounter - Martir Khalil MD - 08/27/2023 12:32 PM EDT Patient had thoracentesis today Fluid analysis needs to be followed Berta Patient will need clinic appointment please Thank you documented in this encounter Plan of Treatment Upcoming Encounters Date Type Department Care Team (Late st Contact Info) Description 08/31/2023 11:15 AM EDT Imaging Radiology [facility] 1st Floor, [place] [address] [place] [address] 09/05/2023 1:40 PM EDT Office Visit Pulmonary Medicine, [facility] [address] [facility] [place] [address] Ger Lu MD [address] [facility] [place] [address] 09/21/2023 3:00 PM EDT Office Visit Gynecology/Obstetrics [facility] [address] [place] [address] Balbina Naik CRNP [address] [place] [address] 09/28/2023 1:30 PM EDT Office Visit Cardiology, [facility] [address] [place] [address] Allan Siddiqui, PARachellC [address] [place] [address] 11/27/2023 11:00 AM EDT Office Visit Family Practice [facility] [address] [facility] [place] [address] Aayush Medrano MD 132 [facility] [place] [address] 01/14/2024 1:30 PM EDT Nurse Only Rheumatology [facility] [address] [facility] [place] [address] Pf, Nurse Rheum 25[address] [facility] [place] [address] 07/09/2024 11:30 AM EDT Office Visit Urology, [facility] [address] [facility] [place] [address] Spencer Kumari MD 27 [facility] [address] [place] [address] Health Maintenance Due Date Last Done Comments [...] D LEVEL ONCE IN A LIFETIME-USE SMARTSET# [id number] Completed 06/27/2023, 01/10/2021, 09/25/2008 GARDASIL-HPV IMMUNIZATION SERIES [...] patient or by statute hierarchy) Care Teams Legal Summer Intern Relationship Specialty Start Date End Date Aayush Medrano MD [address] [place] [address] PCP - General Family Medicine 08/23/23 documented as of this encounter
--- OUTSIDE RECORDS SUMMARY | 2024-01-16 10:17 | External Medical Summary ---
Author Name Unknown Address Unknown Organization [facility] [place] [address] Laboratory Report Ordering Provider Test Date Status BRAYDEN PATEL 08/29/2023 15:23:56 Final Observation Date Value Abnormality Reference (Units ) Status BUN 08/29/2023 15:23:56 28 Above high normal 6-20 (mg/dL) Final Creatinine 08/29/2023 15:23:56 0.6 0.5-1.0 (mg/dL) Final Glomerular filtration rate/1.73 sq M.predicted [Volume Rate/Area] in Serum, Plasma or Blood by Creatinine-based formula (CKD-EPI) 08/29/2023 15:23:56 >90 >=60 (mL/min) Final eGFR is calculated based on the CKD-EPI 2020 equation Sodium 08/29/2023 15:23:56 142 135-146 (m mol/L) Final Potassium 08/29/2023 15:23:56 4.4 3.5-5.1 (m mol/L) Final Cl 08/29/2023 15:23:56 102 98-107 (mm ol/L) Final CO2 08/29/2023 15:23:56 31 22-32 (mmo l/L) Final Anion gap 08/29/2023 15:23:56 9 7-15 (mmol /L) Final Glucose 08/29/2023 15:23:56 96 70-120 (mg /dL) Final Calcium 08/29/2023 15:23:56 9.5 8.4-10.2 ( mg/dL) Final Performing Location [facility] [place] [address]
--- OUTSIDE RECORDS SUMMARY | 2024-01-16 10:17 | External Medical Summary | Summary of Care ---
Author Name Unknown Organization [facility] Address [address] [place] [address] Phone [phone] Care Team Providers Care Tabber Name Role Phone Aayush Medrano MD Primary Care Provider Reason for Visit * Reason Comments Outpatient Testing Encounter Details Date Type Department Care Team (Late st Contact Info) Description 08/29/2023 4:00 PM EDT Laboratory Laboratory, [facility] 132 [facility] [place] [address] [facility] 132 [place] [address] [place] Temperature Management Other*[id number]; Abdominal pain, epigastric Allergies Active Allergy Reactions Criticality Noted Date Comments Penicillins 10/25/1999 rash and given shot as a child, has tolerated augmentin ok as well as cephalosporin documented as of this encounter (statuses as of 08/29/2023) Medications Medication Sig Dispensed Refills Start Date [...] directed via G tube via bolus syringe 35189 mL 11 07/11/2023 Active Apixaban 2.5 MG [...] inj 60 mgIndications:Senile osteoporosis 60 mg SC [id number] 07/11/2023 07/05/2024 Active documented as of this encounter (statuses as of 08/29/2023) Active Problems Problem Noted Date Diagnosed Date [...] as of this encounter (statuses as of 08/29/2023) Resolved Problems Problem Noted Date Diagnosed Date [...] as of this encounter (statuses as of 08/29/2023) Immunizations Name Administration Dates Next Due COVID-19 mRNA, LNP-s, No Pre serve, 2-Dose Series ([employer]) 03/16/2021,08/12/2020,07/22/2020 Covid-19, Mrna, Lnp-s, Pf, B ivalent, 30 Mcg, IM, 12 yrs and above ([employer]) 02/24/2022 Pneumococcal Conjugate Vacc, 13 Valent (Prevnar) [...] Description 08/31/2023 11:15 AM EDT Imaging Radiology [address], [address] [place] [address] 09/05/2023 1:40 PM EDT Office Visit Pulmonary Medicine, [facility] 132 [facility] [place] [address] Ger Lu MD [address] [place] [address] 09/21/2023 3:00 PM EDT Office Visit Gynecology/Obstetrics [facility] 132 [facility] [place] [address] Balbina Naki CRNP 132 [facility] [place] [address] 09/28/2023 1:30 PM EDT Office Visit Cardiology, [facility] 132 [facility] [place] [address] Allan Siddiqui PA-C 132 [facility] [place] [address] 11/27/2023 11:00 AM EDT Office Visit Family Practice [facility] 132 [facility] [place] [address] Aayush Medrano MD 132 [facility] [place] [address] 01/14/2024 1:30 PM EDT Nurse Only Rheumatology [address] [place], [place] [address] Pf, Nurse Rheum [address] [place] [address] [place] [address] 07/09/2024 11:30 AM EDT Office Visit Urology, [facility] 132 [facility] [place] [address] Spencer Kumari MD [address] [address] [place] [address] Pending Results Name Type Priority Associated Diagnoses Date /Time MYCODE SUBSEQUENT ADULT Lab Routine MyCode [employer] Other*[id number] 08/29/2023 3:23 PM EDT BASIC METABOLIC PANEL Lab Routine Abdominal pain, epigastric 08/29/2023 3:23 PM EDT MYCODE SST1 Lab Routine [employer] Other*[id number] 08/29/2023 3:23 PM EDT MYCODE SST2 Lab Routine [employer] Other*[id number] 08/29/2023 3:23 PM EDT Health Maintenance Due Date Last Done Comments [...] D LEVEL ONCE IN A LIFETIME-USE SMARTSET# [id number] Completed 06/27/2023, 01/10/2021, 09/25/2008 GARDASIL-HPV IMMUNIZATION SERIES [...] this encounter Visit Diagnoses Diagnosis [employer] Other*[id number] Abdominal pain, epigastric documented in this encounter Advance Directives Healthcare Agents on File Name Relationship Healthcare [facility] Communication Cristobal [place] Spouse Health Care Repr esentative (appointed verbally by patient or by statute hierarchy) Care Teams Tabber Relationship Specialty Start Date End Date Aayush Medrano MD 132 [facility] [place] [address] PCP - General Family Medicine 08/23/23 documented as of this encounter
--- OUTSIDE RECORDS SUMMARY | 2024-01-16 10:17 | External Medical Summary | Summary of Care ---
Author Name Unknown Organization [facility] Address [address] [facility] [place] [address] Phone [phone] Care Team Providers Care Water Control Supervisor Name Role Phone Aayush Medrano MD Primary Care Provider Reason for Visit * Reason Onset Date Comments Test Results 08/27/2023 F/U 08/26 Thorace ntesis Encounter Details Date Type Department Care Team (Late st Contact Info) Description 08/27/2023 Telephone Pulmonary Medicine Patrick Lemus [address] [place] [address] Castillo Khalil MD [address] [place] [address] Test Results (F/U 08/26 Thoracentesis) Allergies Active [...] directed via G tube via bolus syringe 77311 mL 11 07/11/2023 Active Hospital, Clinic, or Other Facility Administered Medication Ordered Dose Route Frequency Start Date End Date Status Denosumab (Prolia) subcut inj 60 mgIndications:Senile osteoporosis 60 mg SC [id number] 07/11/2023 07/05/2024 Active documented as of this [...] mRNA, LNP-s, No Pre serve, 2-Dose Series ([employer]) 03/16/2021,08/12/2020,07/22/2020 Covid-19, Mrna, Lnp-s, Pf, B ivalent, [...] Lu on 09/05/23. * Addendum Note - Castillo Khalil MD - 08/30/2023 4:57 PM EDTAddended by: CASTILLO KHALIL on: 08/30/2023 04:57 PM Modules accepted: Orders * Telephone Encounter - Castillo Khalil MD - 08/30/2023 4:55 PM EDT [...] 8:22 AM EDT This patient lives in [place]. Could she follow with Dr. Lu at [facility]. * Telephone Encounter - Castillo Khalil MD - 08/27/2023 12:32 PM EDT Patient had thoracentesis today Fluid analysis needs to be followed Berta Patient will need clinic appointment please Thank you documented in this encounter Plan of Treatment Upcoming Encounters Date Type Department Care Team (Late st Contact Info) Description 08/31/2023 11:15 AM EDT Imaging Radiology [facility] 1st Floor, [place] [address] [place] [address] 09/05/2023 1:40 PM EDT Office Visit Pulmonary Medicine, [facility] 132 [facility] [place] [address] Ger Lu MD [address] [address] 09/21/2023 3:00 PM EDT Office Visit Gynecology/Obstetrics [facility] [address] [facility] [place] [address] Balbina Naik CRNP 132 [facility] [place] [address] 09/28/2023 1:30 PM EDT Office Visit Cardiology, [facility] 132 [facility] [place] [address] Allan Siddiqui PA-C [facility] [place] [address] 11/27/2023 11:00 AM EDT Office Visit Family Practice [facility] 132 [facility] [place] [address] Aayush Medrano MD 132 [facility] [place] [address] 01/14/2024 1:30 PM EDT Nurse Only Rheumatology [place] [address] [facility] [place] [address] Pf, Nurse Rheum [facility] [place] [address] 07/09/2024 11:30 AM EDT Office Visit Urology, [facility] 132 [facility] [place] [address] Spencer Kumari MD [address] [place] [address] [place] [address] Scheduled Orders Name Type Priority Associated Diagnoses [...] D LEVEL ONCE IN A LIFETIME-USE SMARTSET# [id number] Completed 06/27/2023, 01/10/2021, 09/25/2008 GARDASIL-HPV IMMUNIZATION SERIES [...] patient or by statute hierarchy) Care Teams Water Control Supervisor Relationship Specialty Start Date End Date Aayush Medrano MD [address] [place] [address] PCP - General Family Medicine 08/23/23 documented as of this encounter
--- OUTSIDE RECORDS SUMMARY | 2024-01-16 10:17 | External Medical Summary | Summary of Care ---
Author Name Unknown Organization [facility] Address [address] [place] [address] Phone [phone] Care Team Providers Care Malt Liquors Sales Supervisor Name Role Phone Aayush Medrano MD Primary Care Provider Reason for Visit * Reason Onset Date Comments Med Request 07/10/2023 FYI 07/10/2023 Fax 07/10/2023 Encounter Details Date Type Department Care Team (Late st Contact Info) Description 07/10/2023 Telephone Family Practice [facility] 132 [facility] [place] [address] Foster Zuniga MD 132 [facility] [place] [address] Med Request; I; Fax Allergies Active Allergy Reactions Criticality Noted [...] directed via G tube via bolus syringe 21524 mL 11 07/11/2023 Active Fibersource HN Oral LiquidIndications:Se yancy protein-calorie malnutrition (HCC) Administer 6 cans daily as directed via G tube via bolus syringe 50950 mL 11 08/17/2022 Discontinue d(Refill) Hospital, Clinic, or Other Facility Administered Medication Ordered Dose Route Frequency Start Date End Date Status Denosumab (Prolia) subcut inj 60 mgIndications:Senile osteoporosis 60 mg SC [id number] 07/11/2023 07/05/2024 Active documented as of this [...] mRNA, LNP-s, No Pre serve, 2-Dose Series ([employer]) 03/16/2021,08/12/2020,07/22/2020 Covid-19, Mrna, Lnp-s, Pf, B ivalent, [...] encounter Miscellaneous Notes * Telephone Encounter - Todd Velasco OSA [...] call to verified if fax was received: [phone] * Telephone Encounter - Sallie Smith LPN - 08/23/2023 11:38 AM EDT Called Nurys with [facility] [phone] Regarding form. Have not received, asked to refax to our office [phone] attn Sallie Osorio on form. * Telephone Encounter - Brinda Amaya OSA - 08/20/2023 12:05 PM EDT Nurys with [facility] re-faxing order for provider to sign letter of medicalnecessity. Insurance won't cover cost if provider doesn't sign form. * Telephone Encounter - Foster Zuniga MD - 07/11/2023 8:14 AM EDT Signed. documented in this encounter Plan of Treatment Upcoming Encounters Date Type Department Care Team (Late st Contact Info) Description 08/31/2023 11:15 AM EDT Imaging Radiology [facility] [address] [place] [address] 09/05/2023 1:40 PM EDT Office Visit Pulmonary Medicine, [address] [place] [address] Ger Lu MD [address] [place] [address] 09/21/2023 3:00 PM EDT Office Visit Gynecology/Obstetrics [facility] [address] [facility] [place] [address] Balbina Naik CRNP [address] [place] [address] 09/28/2023 1:30 PM EDT Office Visit Cardiology, [facility] [place] [address] Allan Siddiqui PA-C [address] [facility] [address] 11/27/2023 11:00 AM EDT Office Visit Family Practice [facility] [address] [place] [address] Aayush [facility]rano MD [facility] [place] [address] 01/14/2024 1:30 PM EDT Nurse Only Rheumatology [place] [id number] [facility], [place] [address] Pf, Nurse Rheum [facility], [place] [address] 07/09/2024 11:30 AM EDT Office Visit Urology, [facility] 132 [facility] [place] [address] Spencer Kumari MD [address] [place] [address] [place] [address] Health Maintenance Due Date [...] D LEVEL ONCE IN A LIFETIME-USE SMARTSET# [id number] Completed 06/27/2023, 01/10/2021, 09/25/2008 GARDASIL-HPV IMMUNIZATION SERIES [...] Name Relationship Healthcare Agent Relationshi p Communication Cristobalronald Jackson Spouse Health Care Repr esentative (appointed verbally by patient or by statute hierarchy) Care Teams Malt Liquors Sales Supervisor Relationship Specialty Start Date End Date Aayush Medrano MD [address] [place] [address] PCP - General Family Medicine 08/23/23 documented as of this encounter
--- OUTSIDE RECORDS SUMMARY | 2024-01-16 10:17 | External Medical Summary | Summary of Care ---
Author Name Unknown Organization [facility] Address [address] [place] [address] Phone [phone] Care Team Providers Care Deputy Editor In Chief Name Role Phone Aayush Medrano MD Primary Care Provider Reason for Referral * Precert (Within 10 days (routine)) - Authorized Specialty Diagnoses / Procedures Referred By Obed briones Referred To Contact Radiology Diagnoses Abdominal pain, epigastric Procedures CT ABD/PELVIS W IV AND W ORAL CONTRAST Imtiaz Kinsey MD [address] [place] [address] Referral ID Status Reason Start Date Expiration Date V isits Requested Visits Authorized [id number] Authorized 09/04/2023 999 999 Reason for Visit * Reason Onset Date Comments Advice 08/28/2023 Encounter Details Date Type Department Care Team (Late st Contact Info) Description 08/28/2023 Telephone Gastroenterology, [facility] [address] [place] [address] Imtiaz Kinsey MD [address] [place] [address] Advice Allergies Active Allergy Reactions Criticality Noted Date Comments Penicillins 10/25/1999 rash and given shot as a child, has tolerated augmentin ok as well as cephalosporin documented as of this encounter (statuses as of 08/28/2023) Medications Medication Sig Dispensed Refills Start Date [...] directed via G tube via bolus syringe 51994 mL 11 07/11/2023 Active Apixaban 2.5 MG [...] inj 60 mgIndications:Senile osteoporosis 60 mg SC [id number] 07/11/2023 07/05/2024 Active documented as of this encounter (statuses as of 08/28/2023) Active Problems Problem Noted Date Diagnosed Date [...] as of this encounter (statuses as of 08/28/2023) Resolved Problems Problem Noted Date Diagnosed Date [...] as of this encounter (statuses as of 08/28/2023) Immunizations Name Administration Dates Next Due COVID-19 mRNA, LNP-s, No Pre serve, 2-Dose Series ([employer]) 03/16/2021,08/12/2020,07/22/2020 Covid-19, Mrna, Lnp-s, Pf, B ivalent, [...] Telephone Encounter - Sherri Umanzor RN - 08/28/2023 4:37 PM EDT Made patient aware of order. She has scheduled appt for CT scan Sunday, she will stop in for labs this week. * Telephone Encounter - Sherri Umanzor RN - 08/28/2023 2:56 PM EDT Patients called in and left a voicemail asking for an order for a CT scan to be ordered on Sharmin's abdomen, reports that she is still dealing with increased stomach pain and she feels this is related to her G tube, "she thinks something is wrong in there." Dr. Brady, Would imaging be appropriate? Or other advice? Thank you! documented in this encounter Plan of Treatment Upcoming Encounters Date Type Department Care Team (Late st Contact Info) Description 08/31/2023 11:15 AM EDT Imaging Radiology [facility] 1st [facility] 132 [facility] [place] [address] 09/05/2023 1:40 PM EDT Office Visit Pulmonary Medicine, [facility] [address] [place] [address] Ger Lu MD [address] [place] [place] [address] 09/21/2023 3:00 PM EDT Office Visit Gynecology/Obstetrics [facility] [address] [place] [address] Balbina Naik CRNP 132 [facility] [place] [address] 09/28/2023 1:30 PM EDT Office Visit Cardiology, [facility] 132 [facility] [place] [address] Allan Siddiqui PA-C 132 [facility] [place] [address] 11/27/2023 11:00 AM EDT Office Visit Family Practice [facility] 132 [facility] [place] [address] Aayush Medrano MD 132 [facility] [place] [address] 01/14/2024 1:30 PM EDT Nurse Only Rheumatology [place] [address] [facility] [address] Pf, Nurse Rheum [facility], [place] [address] 07/09/2024 11:30 AM EDT Office Visit Urology, [facility] 132 [facility] [place] [address] Spencer Kumari MD [address] [place] [address] [place] [id number] Scheduled Orders Name Type Priority Associated Diagnoses Orde r Schedule CT ABD/PELVIS W IV AND W ORAL CONTRAST Medical Imaging Routine Abdominal pain, epigastric Expected: 09/04/2023, Expires: 09/26/2024 BASIC METABOLIC PANEL Lab Routine Abdominal pain, epigastric Expected: 08/28/2023, Expires: 08/27/2024 Health Maintenance Due Date Last Done Comments [...] D LEVEL ONCE IN A LIFETIME-USE SMARTSET# [id number] Completed 06/27/2023, 01/10/2021, 09/25/2008 GARDASIL-HPV IMMUNIZATION SERIES [...] as of this encounter Visit Diagnoses Diagnosis Abdominal pain, epigastric- Primary documented in this encounter Advance Directives Healthcare Agents on File Name Relationship Healthcare Agent Relationshi p Communication Cristobal Jackson Spouse Health Care Repr esentative (appointed verbally by patient or by statute hierarchy) Care Teams Deputy Editor In Chief Relationship Specialty Start Date End Date Aayush Medrano MD [address] [address] PCP - General Family Medicine 08/23/23 documented as of this encounter
--- OUTSIDE RECORDS SUMMARY | 2024-01-16 10:17 | External Medical Summary | Summary of Care ---
Author Name Unknown Organization [facility] Address [address] [place] [address] Phone [phone] Care Team Providers Care Betting Clerks Name Role Phone Aayush Medrano MD Primary Care Provider Reason for Referral * Precert (Within 10 days (routine)) - Authorized Specialty Diagnoses / Procedures Referred By Obed briones Referred To Contact Radiology Diagnoses Abdominal pain, epigastric Procedures CT ABD/PELVIS W IV AND W ORAL CONTRAST Imtiaz Kinsey MD [address] [place] [address] Referral ID Status Reason Start Date Expiration Date V isits Requested Visits Authorized [id number] Authorized 09/04/2023 999 999 Reason for Visit * Reason Onset Date Comments Advice 08/28/2023 Encounter Details Date Type Department Care Team (Late st Contact Info) Description 08/28/2023 Telephone Gastroenterology, [facility] [address] [place] [address] Imtiaz Kinsey MD [address] [place] [address] Advice Allergies Active Allergy Reactions Criticality Noted [...] directed via G tube via bolus syringe 40868 mL 11 07/11/2023 Active Apixaban 2.5 MG [...] inj 60 mgIndications:Senile osteoporosis 60 mg SC [id number] 07/11/2023 07/05/2024 Active documented as of this [...] mRNA, LNP-s, No Pre serve, 2-Dose Series ([employer]) 03/16/2021,08/12/2020,07/22/2020 Covid-19, Mrna, Lnp-s, Pf, B ivalent, [...] 11:15 AM EDT Imaging Radiology [facility] 1st Floor, [place] [facility] [place] [address] 09/05/2023 1:40 PM EDT Office Visit Pulmonary Medicine, [facility] 132 [facility] [place] [address] Ger Lu MD [address] [facility] [place] [address] 09/21/2023 3:00 PM EDT Office Visit Gynecology/Obstetrics [facility] [address] [facility] [place] [address] Balbina Naik CRNP [address] [place] [address] 09/28/2023 1:30 PM EDT Office Visit Cardiology, [facility] [address] [facility] [place] [address] Allan Siddiqui PA-C 132 [facility] [place] [address] 11/27/2023 11:00 AM EDT Office Visit Family Practice [facility] [address] [facility] [place] [address] Aayush Medrano MD 132 [facility] [place] [address] 01/14/2024 1:30 PM EDT Nurse Only Rheumatology [address] [place] [address] Pf, Nurse Rheum [address] [place] [address] [place] [address] 07/09/2024 11:30 AM EDT Office Visit Urology, [facility] 132 [facility] [place] [address] Spencer Kumari MD 27 [address] 270 [place] [address] Scheduled Orders Name Type Priority Associated Diagnoses [...] Additional history exists DXA Scan 05/21/2025 05/21/2023, 06, 01/26/2016, Additional history exists DTaP,Tdap,and Td Vaccines (3 - Td or Tdap) 10/24/2032 10/24/2022, 03/14/2006 Pneumococcal Vaccine: 65+ Years Completed 06/25/2018, 04/15/2018, 02/03/2014 Influenza Vaccine (FLU shot) Completed , 01/05/2022, 02/15/2021, Additional history exists VITAMIN D LEVEL ONCE IN A LIFETIME-USE SMARTSET# [id number] Completed 06/27/2023, 01/10/2021, 09/25/2008 GARDASIL-HPV IMMUNIZATION SERIES [...] patient or by statute hierarchy) Care Teams Betting Clerks Relationship Specialty Start Date End Date Aayush Medrano MD [address] [address] PCP - General Family Medicine 08/23/23 documented as of this encounter
--- OUTSIDE RECORDS SUMMARY | 2024-01-16 10:17 | External Medical Summary | Summary of Care ---
Author Name Unknown Organization [facility] Address [address] [facility] [place] [address] Phone [phone] Care Team Providers Care Registration Clerk Name Role Phone Aayush Medrano MD Primary Care Provider Reason for Visit * Reason Onset Date Comments Test Results 08/27/2023 F/U 08/26 Thorace ntesis Encounter Details Date Type Department Care Team (Late st Contact Info) Description 08/27/2023 Telephone Pulmonary Medicine Patrick Lemus [address] [place] [address] Martir Khalil MD [address] [place] [address] Test Results (F/U 08/26 Thoracentesis) Allergies Active [...] directed via G tube via bolus syringe 13241 mL 11 07/11/2023 Active Hospital, Clinic, or Other Facility Administered Medication Ordered Dose Route Frequency Start Date End Date Status Denosumab (Prolia) subcut inj 60 mgIndications:Senile osteoporosis 60 mg SC [id number] 07/11/2023 07/05/2024 Active documented as of this [...] mRNA, LNP-s, No Pre serve, 2-Dose Series ([employer]) 03/16/2021,08/12/2020,07/22/2020 Covid-19, Mrna, Lnp-s, Pf, B ivalent, [...] encounter Miscellaneous Notes * Telephone Encounter - Berta Rossi OSA - 08/28/2023 8:53 AM EDT Patient is scheduled and aware of the date and time. * Telephone Encounter - Alexandra Larios LPN - 08/28/2023 8:22 AM EDT This patient lives in [place]. Could she follow with Dr. Lu at [facility]. * Telephone Encounter - Martir Khalil MD - 08/27/2023 12:32 PM EDT Patient had thoracentesis today Fluid analysis needs to be followed Berta Patient will need clinic appointment please Thank you documented in this encounter Plan of Treatment Upcoming Encounters Date Type Department Care Team (Late st Contact Info) Description 08/31/2023 11:15 AM EDT Imaging Radiology [facility] 132 [facility] [place] [address] 09/05/2023 1:40 PM EDT Office Visit Pulmonary Medicine, [facility] 132 [facility] [place] [address] Ger Lu MD [address] [facility] [place] [address] 09/21/2023 3:00 PM EDT Office Visit Gynecology/Obstetrics [facility] 132 [facility] [place] [address] Balbina Naik CRNP [facility] [place] [address] 09/28/2023 1:30 PM EDT Office Visit Cardiology, [facility] 132 [facility] [place] [address] Allan Siddiqui PA-C [facility] [place] [address] 11/27/2023 11:00 AM EDT Office Visit Family Practice [facility] 132 [facility] [place] [address] Aayush Medrano MD [address] [place] [address] 01/14/2024 1:30 PM EDT Nurse Only Rheumatology [place] [address] [facility] [place] [address] Pf, Nurse Rheum [facility] [place] [address] 07/09/2024 11:30 AM EDT Office Visit Urology, [facility] [address] [place] [address] Spencer Kumari MD 27 [facility] [address] [place] [address] Health Maintenance Due Date Last Done Comments [...] D LEVEL ONCE IN A LIFETIME-USE SMARTSET# [id number] Completed 06/27/2023, 01/10/2021, 09/25/2008 GARDASIL-HPV IMMUNIZATION SERIES [...] patient or by statute hierarchy) Care Teams Registration Clerk Relationship Specialty Start Date End Date Aayush Medrano MD [address] [address] PCP - General Family Medicine 08/23/23 documented as of this encounter
--- OUTSIDE RECORDS SUMMARY | 2024-01-16 10:17 | External Medical Summary ---
Author Name Unknown Address Unknown Organization K01:[facility] - [address] [place] [address] Laboratory Report Ordering Provider Test Date Status MIGUELANGEL HOLLIS 08/29/2023 15:23:56 Final Observation Date Value Abnormality Reference (Units ) Status MYCODE SPECIMEN-SST 08/29/2023 15:23:56 Freezing of extracted DNA, whole blood and/or serum. Final Performing Location [facility] - [address] [place] [address]
--- OUTSIDE RECORDS SUMMARY | 2024-01-16 10:17 | External Medical Summary | Summary of Care ---
Author Name Unknown Organization [facility] Address [address] [place] [address] Phone [phone] Care Team Providers Care Weighbridge Operator Name Role Phone Aayush Medrano MD Primary Care Provider Reason for Visit * Reason Onset Date Comments Med Request 07/10/2023 FYI 07/10/2023 Fax 07/10/2023 Encounter Details Date Type Department Care Team (Late st Contact Info) Description 07/10/2023 Telephone Family Practice [facility] 132 [facility] [place] [address] Foster Zuniga MD 132 [facility] [place] [address] Med Request; I; Fax Allergies Active Allergy [...] directed via G tube via bolus syringe 60198 mL 11 07/11/2023 Active [employer]ers[employer] HN Oral LiquidIndications:Se yancy protein-calorie malnutrition (HCC) Administer 6 cans daily as directed via G tube via bolus syringe 38624 mL 11 08/17/2022 Discontinue d(Refill) Hospital, Clinic, or Other Facility Administered Medication Ordered Dose Route Frequency Start Date End Date Status Denosumab (Prolia) subcut inj 60 mgIndications:Senile osteoporosis 60 mg SC [id number] 07/11/2023 07/05/2024 Active documented as of this [...] mRNA, LNP-s, No Pre serve, 2-Dose Series ([employer]) 03/16/2021,08/12/2020,07/22/2020 Covid-19, Mrna, Lnp-s, Pf, B ivalent, [...] call to verified if fax was received: [phone] * Telephone Encounter - Sallie Smith LPN - 08/23/2023 11:38 AM EDT Called Nurys with [facility] [phone] Regarding form. Have not received, asked to refax to our office [phone] attn Sallie Osorio on form. * Telephone Encounter - Brinda Amaya OSA - 08/20/2023 12:05 PM EDT [facility]ys with [facility] re-faxing order for provider to sign letter of medicalnecessity. Insurance won't cover cost if provider doesn't sign form. * Telephone Encounter - Foster Zuniga MD - 07/11/2023 8:14 AM EDT Signed. documented in this encounter Plan of Treatment Upcoming Encounters Date Type Department Care Team (Late st Contact Info) Description 08/31/2023 11:15 AM EDT Imaging Radiology [facility] [address] [place] [address] 09/05/2023 1:40 PM EDT Office Visit Pulmonary Medicine, [address] [place] [address] Ger Lu MD [address] [place] [address] 09/21/2023 3:00 PM EDT Office Visit Gynecology/Obstetrics [facility] [address] [facility] [place] [address] Balbina Naik CRNP [address] [place] [address] 09/28/2023 1:30 PM EDT Office Visit Cardiology, [facility] [place] [address] Allan Siddiqui PA-C [address] [place] [address] 11/27/2023 11:00 AM EDT Office Visit Family Practice [facility] [address] [place] [address] Aayush Medrano MD [facility] [place] [address] 01/14/2024 1:30 PM EDT Nurse Only Rheumatology [place] [address] [facility], [place] [address] Pf, Nurse Rheum [facility]0 [facility], [place] [address] 07/09/2024 11:30 AM EDT Office Visit Urology, [facility] 132 [facility] [place] [address] Spencer Kumari MD [address] [place] [address] [place] [address] Health Maintenance Due Date [...] D LEVEL ONCE IN A LIFETIME-USE SMARTSET# [id number] Completed 06/27/2023, 01/10/2021, 09/25/2008 GARDASIL-HPV IMMUNIZATION SERIES [...] patient or by statute hierarchy) Care Teams Weighbridge Operator Relationship Specialty Start Date End Date Aayush Medrano MD 132 [place] [address] PCP - General Family Medicine 08/23/23 documented as of this encounter
--- OUTSIDE RECORDS SUMMARY | 2024-01-16 10:17 | External Medical Summary ---
Author Name Unknown Address Unknown Organization K01:LAB[facility]ATORY [facility] - [address] [place] [address] Laboratory Report Ordering Provider Test Date Status MIGUELANGEL HOLLIS 08/29/2023 15:23:56 Final Observation Date Value Abnormality Reference (Units ) Status MYCODE SPECIMEN-SST 08/29/2023 15:23:56 Freezing of extracted DNA, whole blood and/or serum. Final Performing Location [facility] - [address] [place] [address]
--- OUTSIDE RECORDS SUMMARY | 2024-01-16 10:17 | External Medical Summary | Summary of Care ---
Author Name Unknown Organization [facility] Address [address] [facility] [place] [address] Phone [phone] Care Team Providers Care Road Boss Name Role Phone Aayush Medrano MD Primary Care Provider Reason for Visit * Reason Onset Date Comments Test Results 08/27/2023 F/U 08/26 Thorace ntesis Encounter Details Date Type Department Care Team (Late st Contact Info) Description 08/27/2023 Telephone Pulmonary Medicine Patrick Lemus [address] [place] [phone] Martir Khalil MD [address] [place] [address] Test Results (F/U 08/26 Thoracentesis) Allergies Active [...] directed via G tube via bolus syringe 26432 mL 11 07/11/2023 Active Hospital, Clinic, or Other Facility Administered Medication Ordered Dose Route Frequency Start Date End Date Status Denosumab (Prolia) subcut inj 60 mgIndications:Senile osteoporosis 60 mg SC [id number] 07/11/2023 07/05/2024 Active documented as of this [...] mRNA, LNP-s, No Pre serve, 2-Dose Series (E-nterview) 03/16/2021,08/12/2020,07/22/2020 Covid-19, Mrna, Lnp-s, Pf, B ivalent, [...] encounter Miscellaneous Notes * Addendum Note - Martir Khalil MD [...] 8:22 AM EDT This patient lives in [place]. Could she follow with Dr. Lu at [place]. * Telephone Encounter - Martir Khalil MD - 08/27/2023 12:32 PM EDT Patient had thoracentesis today Fluid analysis needs to be followed Berta Patient will need clinic appointment please Thank you documented in this encounter Plan of Treatment Upcoming Encounters Date Type Department Care Team (Late st Contact Info) Description 08/31/2023 11:15 AM EDT Imaging Radiology [place] 1st Floor, [address] [place] [address] 09/05/2023 1:40 PM EDT Office Visit Pulmonary Medicine, [address] [place] [address] Ger Lu MD [address] [facility] [place] [address] 09/21/2023 3:00 PM EDT Office Visit Gynecology/Obstetrics [place] [address] [facility] [place] [address] Balbina Naik CRNP 132 [facility] [place] [address] 09/28/2023 1:30 PM EDT Office Visit Cardiology, [facility] [address] [place] [address] Allan Siddiqui PA-C 132 [facility] [place] [address] 11/27/2023 11:00 AM EDT Office Visit Family Practice [facility] [address] [facility] [place] [address] Aayush Medrano MD 132 [facility] [place] [address] 01/14/2024 1:30 PM EDT Nurse Only Rheumatology [address] [address] Pf, Nurse Rheum [address] [place] [address] [place] [address] 07/09/2024 11:30 AM EDT Office Visit Urology, [facility] 132 [facility] [place] [address] Spencer Kumari MD 27 [address] [address] [place] [address] Scheduled Orders Name Type Priority Associated Diagnoses [...] D LEVEL ONCE IN A LIFETIME-USE SMARTSET# [id number] Completed 06/27/2023, 01/10/2021, 09/25/2008 GARDASIL-HPV IMMUNIZATION SERIES [...] patient or by statute hierarchy) Care Teams Road Boss Relationship Specialty Start Date End Date Aayush Medrano MD [address] [place] [address] PCP - General Family Medicine 08/23/23 documented as of this encounter
--- OUTSIDE RECORDS SUMMARY | 2024-01-16 10:17 | External Medical Summary | Summary of Care ---
Author Name Unknown Organization [facility] Address [address] [place] [address] Phone [phone] Care Team Providers Care Academic Support Specialist Name Role Phone Aayush Medrano MD Primary Care Provider Reason for Visit * Reason Comments Follow Up G tube evaluation Encounter Details Date Type Department Care Team (Late st Contact Info) Description 08/24/2023 2:00 PM EDT Office Visit [facility]enterology, [facility] [place] [address] Imtiaz Kinsey MD 132 [facility] [place] [address] Abdominal pain, epigastric* Allergies Active Allergy Reactions Criticality Noted Date [...] directed via G tube via bolus syringe 01690 mL 11 07/11/2023 Active Apixaban 2.5 MG Oral Tablet (Eliquis) 1 Tablet. 0 07/23/2023 4 Discontinue d(Refill) Carvedilol 6.25 MG Oral Tablet (Coreg) 1 Tablet. 0 07/27/2023 08/27/19 2 4 Discontinue d(Refill) Hospital, Clinic, or Other Facility Administered Medication Ordered Dose Route Frequency Start Date End Date Status Denosumab (Prolia) subcut inj 60 mgIndications:Senile osteoporosis 60 mg SC [id number] 07/11/2023 07/05/2024 Active documented as of this [...] mRNA, LNP-s, No Pre serve, 2-Dose Series (Krish[employer]han Seeds) 03/16/2021,08/12/2020,07/22/2020 Covid-19, Mrna, Lnp-s, Pf, B ivalent, 30 Mcg, IM, 12 yrs and above (K[employer] Seeds) 02/24/2022 Pneumococcal Conjugate Vacc, 13 Valent (Prevnar) [...] Pressure - - Pulse - - Temperature 36.8 C (98.2 F) 08/24/2023 1:55 PM ED T Respiratory Rate 20 08/24/2023 1:55 PM EDT Oxygen Saturation - - Inhaled Oxygen Concentration - - Weight 50.3 kg (110 lb 14.4 oz) 08/24/2023 1:55 PM EDT Height - - Body Mass Index 19.04 08/23/2023 9:01 AM EDT documented in this encounter Functional [...] as of this encounter Progress Notes * Imtiaz Kinsey MD - 08/28/2023 3:50 PM EDT Pt describes pain at stoma with PEG tube feeds. On exam, Peg is workingnormally.=, although Andres tube projects about 1 cm above skin, It is near the rubs. Skin is without redness or leakage. I can flush without causing pain. She has no tenderness around stoma. On chart review, CT in June without contrast appears unremarkable to me. CT last September is unremarkable, except shows thickening of "transverlis fascia." I cannot see any reason for stomal pain. I replaceed PEG with shorter tube, incase bumper is migrating inward and causing GOO. PEG tube location confirmed by insufflation, aspiration, and injection of water. It is possible that she has MSK pain, related to kypohosis and location of PEG near rib. If pain ispersistent, can get CT. * Ally Kaur RN - 08/24/2023 2:43 PM EDT Education Counselor Documentation Provider requested fugitive investigator. Name of fugitive investigator: Ally Kaur RN documented in this encounter Nursing Notes * Elizabeth Guillen RN - 08/24/2023 1:51 PM EDT Pt here with today for evaluation of G tube. States she has pain especially during bolus feedings. Denies any redness or drainage around the site. documented in this encounter Plan of Treatment Upcoming Encounters Date Type Department Care Team (Late st Contact Info) Description 08/31/2023 11:15 AM EDT Imaging Radiology [facility] [facility] 132 [facility] [place] [address] 09/05/2023 1:40 PM EDT Office Visit Pulmonary Medicine, [facility] 132 [facility] [place] [address] Ger Lu MD [address] [facility] [place] [address] 09/21/2023 3:00 PM EDT Office Visit Gynecology/Obstetrics [facility] [place] [address] Balbina Naik CRNP [address] [place] [address] 09/28/2023 1:30 PM EDT Office Visit Cardiology, [facility] [address] [place] [address] Allan Siddiqui PAWojciech [address] [place] [address] 11/27/2023 11:00 AM EDT Office Visit Family Practice [facility] 132 [facility] [place] [address] Aayush Medrano MD [address] [place] [address] 01/14/2024 1:30 PM EDT Nurse Only Rheumatology [place] [address] [facility] [place] [address] Pf, Nurse Rheum [facility] [place] [address] 07/09/2024 11:30 AM EDT Office Visit Urology, [facility] 132 [facility] [place] [address] Spencer Kumari MD 27 [facility] [place] [address] [place] [address] Health Maintenance [...] D LEVEL ONCE IN A LIFETIME-USE SMARTSET# [id number] Completed 06/27/2023, 01/10/2021, 09/25/2008 GARDASIL-HPV IMMUNIZATION SERIES [...] patient or by statute hierarchy) Care Teams Academic Support Specialist Relationship Specialty Start Date End Date Aayush Medrano MD [address] [place] [address] PCP - General Family Medicine 08/23/23 documented as of this encounter
--- OUTSIDE RECORDS SUMMARY | 2024-01-16 10:18 | External Medical Summary ---
Author Name Unknown Address Unknown Organization K01:[facility] [place] - [facility] [address] [facility] [address] [facility] [address] Laboratory Report Ordering Provider Test Date Status TJ CHONG 08/27/2023 10:50:48 Final Observation Date Value Abnormality Reference (Units ) Status Glucose, Body Fluid 08/27/2023 10:50:48 149 (mg/dL) Final The reference interval(s) an d other method performance specifications may not be available for this body fluid. Comparison of this result with the concentration in the blood, serum, or plasma is recommended. The test result must be integrated into the clinical context for interpretation.

Please refer to test catalog ([email or web address]_[email or web address]) for additional interpretive information.

This test was developed and its performance characteristics determined by [facility]. It has not been cleared or approved by the US Food and Drug Administration. Performing Location [facility] [place] - [address] [facility] [address]
--- OUTSIDE RECORDS SUMMARY | 2024-01-16 10:18 | External Medical Summary ---
Author Name Unknown Address Unknown Organization K1F:LABORATORY [facility] - [address] [place] [address] Laboratory Report Ordering Provider Test Date Status TJ CHONG 08/27/2023 10:50:48 Final Some reference ranges and ot her method performance specifications have not been established for this fluid. The test results must be integrated into the clinical context for interpretation. Observation Date Value Abnormality Reference (Units ) Status Clarity of Body fluid 08/27/2023 10:50:48 Clear Clear Final Color of Body fluid 08/27/2023 10:50:48 Yellow Straw, Yellow, Colorless Final Nucleated cells [#/volume] in Body fluid by Automated count 08/27/2023 10:50:48 1539 <3800 (cells/uL) Final Erythrocytes [#/volume] in Body fluid by Automated count 08/27/2023 10:50:48 2000 (cells/uL) Final Performing Location LAB[facility] - [address] [place] [address]
--- OUTSIDE RECORDS SUMMARY | 2024-01-16 10:18 | External Medical Summary | Summary of Care ---
Author Name Unknown Organization [facility] Address [address] [facility] [place] [address] Phone [phone] Care Team Providers Care Machine Driller Name Role Phone aAyush Medrano MD Primary Care Provider Reason for Visit * Reason Onset Date Comments Test Results 08/24/2023 Thoracentesis Encounter Details Date Type Department Care Team (Late st Contact Info) Description 08/24/2023 Telephone Pulmonary Medicine Patrick Lemus [address] [place] [phone] Martir Khalil MD [address] [place] [id number] Test Results (Thoracentesis) Allergies Active Allergy Reactions Criticality Noted Date [...] directed via G tube via bolus syringe 26304 mL 11 07/11/2023 Active Apixaban 2.5 MG Oral Tablet (Eliquis) 1 Tablet. 0 07/23/2023 4 Discontinue d(Refill) Carvedilol 6.25 MG Oral Tablet (Coreg) 1 Tablet. 0 07/27/2023 08/27/19 2 4 Discontinue d(Refill) Hospital, Clinic, or Other Facility Administered Medication Ordered Dose Route Frequency Start Date End Date Status Denosumab (Prolia) subcut inj 60 mgIndications:Senile osteoporosis 60 mg SC [id number] 07/11/2023 07/05/2024 Active documented as of this [...] mRNA, LNP-s, No Pre serve, 2-Dose Series (ScaleXtreme) 03/16/2021,08/12/2020,07/22/2020 Covid-19, Mrna, Lnp-s, Pf, B ivalent, 30 Mcg, IM, 12 yrs and above (ScaleXtreme) 02/24/2022 Pneumococcal Conjugate Vacc, 13 Valent (Prevnar) [...] Encounter - Alexandra Larios LPN - 08/28/2023 8:25 AM EDT Results being followed in the 08/26 telephone encounter. * Telephone Encounter - Christina Oviedo, ARI - 08/24/2023 6:13 PM EDT Spoke with pt. She was very hard to understand on the phone. Pt got her , Cristobal, on the lineto speak to. Cristobal is aware of procedure on Sunday at [facility]. Cristobal is aware the OR will call first thing Sunday with an arrival time. He's aware to hold the pt's Eliquis on Sunday and Sunday, resumeon Sunday. Directions were given to [facility]. * Telephone Encounter - Christina Oviedo, ARI - 08/24/2023 3:36 PM EDT Thoro scheduled by Berta Fischer Called pt, no answer. LM on home and cell phone requesting call back. Pt needs made of procedure. * Telephone Encounter - Martir Khalil MD - 08/24/2023 3:14 PM EDT Please schedule patient for thoracentesis next week. Please ask patient to hold Apixaban after Sunday morning dose if we can do it on Sunday at 9:30 am. Thank you documented in this encounter Plan of Treatment Upcoming Encounters Date Type Department Care Team (Late st Contact Info) Description 09/21/2023 3:00 PM EDT Office Visit Gynecology/Obstetrics Prashanth Pedrazas [address] [place] [address] Balbina Naik CRNP [address] [place] [address] 09/28/2023 1:30 PM EDT [facility] [address] [place] [address] Allan Siddiqui PA-C [address] [place] [address] 11/27/2023 9:20 AM EDT Office Visit Family Practice [facility] [place] [address] Foster Zuniga MD [address] [place] [address] 01/14/2024 1:30 PM EDT Nurse Only Rheumatology [address] [place] [address] Pf, Nurse Rheum [address] [place] [address] [place] [address] 06/23/2024 11:30 AM EST Imaging Radiology [facility] 1st [facility] [address] [place] [address] 07/09/2024 11:30 AM EDT Office Visit Urology, [facility] [place] [address] Spencer Kumari MD 27 [address] [facility] [address] [place] [address] Health Maintenance Due Date Last Done Comments [...] D LEVEL ONCE IN A LIFETIME-USE SMARTSET# [id number] Completed 06/27/2023, 01/10/2021, 09/25/2008 GARDASIL-HPV IMMUNIZATION SERIES [...] Name Relationship Healthcare Agent Relationshi p Communication Cristboal Jackson Spouse Health Care Repr esentative (appointed verbally by patient or by statute hierarchy) Care Teams Machine Driller Relationship Specialty Start Date End Date Aayush Medrano MD [address] [place] [address] PCP - General Family Medicine 08/23/23 documented as of this encounter
--- OUTSIDE RECORDS SUMMARY | 2024-01-16 10:18 | External Medical Summary | Summary of Care ---
Author Name Unknown Organization [facility] Address [address] [place] [address] Phone [phone] Care Team Providers Care Equipment Operator Intermodal Yard Name Role Phone Aayush Medrano MD Primary Care Provider Reason for Visit * Reason Onset Date Comments Medication Refill 08/27/2023 Encounter Details Date Type Department Care Team (Late st Contact Info) Description 08/27/2023 Refill Family Practice [facility] [address] [place] [address] Aayush Medrano MD [address] [place] [address] Allergies Active Allergy Reactions Criticality Noted Date Comments Penicillins 10/25/1999 rash and given shot as a child, has tolerated augmentin ok as well as cephalosporin documented as of this encounter (statuses as of 08/27/2023) Medications Medication Sig Dispensed Refills Start Date [...] directed via G tube via bolus syringe 67206 mL 11 07/11/2023 Active Apixaban 2.5 MG Oral Tablet (Eliquis) Administer 1 Tablet into G tube in the morning and 1 Tablet before bedtime. 60 Tablet 3 08/27/2023 Active Carvedilol 6.25 MG Oral Tablet (Coreg) Administer 1 Tablet into G tube 2 times a day with morning and evening meals. 60 Tablet 3 08/27/2023 Active Apixaban 2.5 MG Oral Tablet (Eliquis) 1 Tablet. 0 07/23/2023 4 Discontinue d(Refill) Carvedilol 6.25 MG Oral Tablet (Coreg) 1 Tablet. 0 07/27/2023 08/27/19 2 4 Discontinue d(Refill) Hospital, Clinic, or Other Facility Administered Medication Ordered Dose Route Frequency Start Date End Date Status Denosumab (Prolia) subcut inj 60 mgIndications:Senile osteoporosis 60 mg SC [id number] 07/11/2023 07/05/2024 Active documented as of this encounter (statuses as of 08/27/2023) Active Problems Problem Noted Date Diagnosed Date [...] as of this encounter (statuses as of 08/27/2023) Resolved Problems Problem Noted Date Diagnosed Date [...] as of this encounter (statuses as of 08/27/2023) Immunizations Name Administration Dates Next Due COVID-19 mRNA, LNP-s, No Pre serve, 2-Dose Series (YouOS) 03/16/2021,08/12/2020,07/22/2020 Covid-19, Mrna, Lnp-s, Pf, B ivalent, 30 Mcg, IM, 12 yrs and above (YouOS) 02/24/2022 Pneumococcal Conjugate Vacc, 13 Valent (Prevnar) [...] Telephone Encounter - Aayush Medrano MD - 08/27/2023 3:39 PM EDT Signed Prescriptions: Disp Refills Apixaban 2.5 MG Oral Tablet (Eliquis) 60 Tab*3 Sig: Administer 1 Tablet into G tube in the morning and 1 Tablet before bedtime.Authorizing Provider: ARPIT MEDRANO Carvedilol 6.25 MG Oral Tablet (Coreg) 60 Tab*3 Sig: Administer 1 Tablet into G tube 2 times a day with morning and evening meals.Authorizing Provider: AAYUSH MEDRANO * Telephone Encounter - Aayush Medrano MD - 08/27/2023 3:38 PM EDT Signed and sent. Thanks. * Telephone Encounter - Sherri Umanzor RN - 08/27/2023 3:35 PM EDT Pended both meds for BID dosing, dr. Medrano if this is correct. Thank you * Telephone Encounter - Sherri Umanzor RN - 08/27/2023 3:28 PM EDT Did you pend patient's preferred pharmacy and medication before forwarding?yes Pharmacy: [facility] [address] [place] [address] [place] [address] Pending Prescriptions: Disp Refills Apixaban 2.5 MG Oral Tablet (Eliquis) 60 Tab*3 Sig: Administer 1 Tablet into G tube in the morning and 1 Tablet before bedtime. Carvedilol 6.25 MG Oral Tablet (Coreg) 60 Tab*3 Sig: Administer 1 Tablet into G tube 2 times a day with morning and evening meals. Last Visit: 08/23/2023 (in office), Visit date not found (telemedicine) Next Visit: 11/27/2023 If no future appointments scheduled, and last appointment is greater than a year ago, please schedule patient for a follow-up appointmen Last date the medication was ordered: n/a Is this request for a controlled substance?No Urine Drug Screen:No results found. However, due to the size of the patient record, not all encounters were searched. Please check Results Review for a complete set of results. Patient Phone Numbers Labs: Lab Results Component Value Date/Time CREAT 0.6 08/14/2023 02:21 PM CREAT 0.7 06/04/2019 03:21 PM POTASSIUM 4.5 08/14/2023 02:21 PM POTASSIUM 4.4 06/04/2019 03:21 PM TSH [...] EDT Office Visit Gynecology/Obstetrics Prashanth Ambrocio [address] [place] [address] Balbina Naik CRNP [address] [place] [address] 09/28/2023 1:30 PM EDT [facility] [address] [place] [address] Allan Siddiqui PA-C 132 [facility] [place] [address] 11/27/2023 9:20 AM EDT Office Visit Family Practice [facility] 132 [facility] [place] [address] Foster Zuniga MD 132 [facility] [place] [address] 01/14/2024 1:30 PM EDT Nurse Only Rheumatology [address] [place] [address] Pf, Nurse Rheum [address] [place] [address] [place] [address] 06/23/2024 11:30 AM EST Imaging Radiology [facility] 1st [facility] 132 [facility] [place] [address] 07/09/2024 11:30 AM EDT Office Visit Urology, [facility] 132 [facility] [place] [address] Spencer Kumari MD 27 [facility] [address] [place] [address] Scheduled Procedures Name Priority Associated Diagnoses Date/Ti me PRE / POST CARE Pleural effusion 08/27/2023 9:30 AM EDT Health Maintenance Due Date Last Done [...] D LEVEL ONCE IN A LIFETIME-USE SMARTSET# [id number] Completed 06/27/2023, 01/10/2021, 09/25/2008 GARDASIL-HPV IMMUNIZATION SERIES [...] patient or by statute hierarchy) Care Teams Equipment Operator Intermodal Yard Relationship Specialty Start Date End Date Aayush Medrano MD [address] [place] [address] PCP - General Family Medicine 08/23/23 documented as of this encounter
--- OUTSIDE RECORDS SUMMARY | 2024-01-16 10:18 | External Medical Summary | Summary of Care ---
Author Name Unknown Organization [facility] Address [address] [place] [address] Phone [phone] Care Team Providers Care Manual Machinist Name Role Phone Aayush Medrano MD Primary Care Provider Reason for Visit * Reason Onset Date Comments Test Results 08/27/2023 F/U 08/26 Thorace ntesis Encounter Details Date Type Department Care Team (Late st Contact Info) Description 08/27/2023 Telephone Pulmonary Medicine Patrick Lemus [address] [place] [id number] Martir Khalil MD [address] [place] [id number] Test Results (F/U 08/26 Thoracentesis) Allergies Active [...] directed via G tube via bolus syringe 47186 mL 11 07/11/2023 Active Hospital, Clinic, or Other Facility Administered Medication Ordered Dose Route Frequency Start Date End Date Status Denosumab (Prolia) subcut inj 60 mgIndications:Senile osteoporosis 60 mg SC [id number] 07/11/2023 07/05/2024 Active documented as of this [...] mRNA, LNP-s, No Pre serve, 2-Dose Series (Frontback) 03/16/2021,08/12/2020,07/22/2020 Covid-19, Mrna, Lnp-s, Pf, B ivalent, [...] 8:22 AM EDT This patient lives in [place]. Could she follow with Dr. Lu at [facility]. * Telephone Encounter - Martir Khalil MD - 08/27/2023 12:32 PM EDT Patient had thoracentesis today Fluid analysis needs to be followed Berta Patient will need clinic appointment please Thank you documented in this encounter Plan of Treatment Upcoming Encounters Date Type Department Care Team (Late st Contact Info) Description 09/05/2023 1:40 PM EDT Office Visit Pulmonary Medicine, [facility] [address] [place] [address] Ger Lu MD [address] [facility] [place] [id number] 09/21/2023 3:00 PM EDT Office Visit Gynecology/Obstetrics [facility] [address] [place] [address] Balbina Naik CRNP [address] [facility] [place] [place] [address] 09/28/2023 1:30 PM EDT Office Visit Cardiology, [facility] [address] [place] [address] Allan Siddiqui, PARachellC [address] [place] [address] 11/27/2023 9:20 AM EDT Office Visit Family Practice [facility] [address] [place] [address] Foster Zuniga MD [address] [place] [address] 01/14/2024 1:30 PM EDT Nurse Only Rheumatology [facility] [address] [facility] [place] [address] Pf, Nurse Rheum [address] [facility] [place] [address] 06/23/2024 11:30 AM EST Imaging Radiology [facility] [address] [facility] [address] [place] [address] 07/09/2024 11:30 AM EDT Office Visit Urology, [facility] [address] [place] [address] Spencer Kumari MD [address] [facility] [address] [place] [address] Health Maintenance [...] D LEVEL ONCE IN A LIFETIME-USE SMARTSET# [id number] Completed 06/27/2023, 01/10/2021, 09/25/2008 GARDASIL-HPV IMMUNIZATION SERIES [...] patient or by statute hierarchy) Care Teams Manual Machinist Relationship Specialty Start Date End Date Aayush Medrano MD [address] [facility] [place] [address] PCP - General Family Medicine 08/23/23 documented as of this encounter
--- OUTSIDE RECORDS SUMMARY | 2024-01-16 10:18 | External Medical Summary ---
Author Name Unknown Address Unknown Organization [id number]:LABORATORY [facility] - [address] [place] [address] Laboratory Report Ordering Provider Test Date Status JACKY CHONGDARBY 08/27/2023 10:50:48 Final Some reference ranges and ot her method performance specifications have not been established for this fluid. The test results must be integrated into the clinical context for interpretation. Observation Date Value Abnormality Reference (Units ) Status SYNC TOTAL NUCLEATED CELLS FLUID 08/27/2023 10:50:48 1539 (cells/uL) Final Neutrophils/100 leukocytes in Body fluid by Manual count 08/27/2023 10:50:48 53 Above high normal 0-1 (%) Final Lymphocytes, Body Fluid 08/27/2023 10:50:48 12 Below low normal 18-36 (%) Final Monocytes/100 leukocytes in Body fluid by Manual count 08/27/2023 10:50:48 29 Below low normal 64-80 (%) Final LINING CELLS/100 NUCLEATED CELLS IN BODY FLUID 08/27/2023 10:50:48 7 Above high normal 0-2 (%) Final SEGMENTED NEUTROPHILS (1000/UG) IN BODY FLUID ABS 08/27/2023 10:50:48 815.67 (cells/uL) Final LYMPHOCYTES (1000/UG) IN BODY FLUID ABS 08/27/2023 10:50:48 184.68 (cells/uL) Final MONOCYTES(1000/UG) IN BODY FLUID ABS 08/27/2023 10:50:48 446.31 (cells/uL) Final LINING CELLS IN BODY FLUID ABS 08/27/2023 10:50:48 107.73 (cells/uL) Final Performing Location LABORATORY [facility] - [address] [place] [address]
--- OUTSIDE RECORDS SUMMARY | 2024-01-16 10:18 | External Medical Summary ---
Author Name Unknown Address Unknown Organization [id number]:[facility] [place] [facility] [address] [facility] [address] Laboratory Report Ordering Provider Test Date Status TJ CHONG 08/27/2023 10:50:48 Final Observation Date Value Abnormality Reference (Units ) Status Protein, Body Fluid 08/27/2023 10:50:48 5.0 (g/dL) Final The reference interval(s) an d other method performance specifications may not be available for this body fluid. Comparison of this result with the concentration in the blood, serum, or plasma is recommended. The test result must be integrated into the clinical context for interpretation.

Please refer to test catalog ([email or web address]_[email or web address]) for additional interpretive information.

This test was developed and its performance characteristics determined by [employer]. It has not been cleared or approved by the [place] Food and Drug Administration. Performing Location [facility] [place] [address] [place] [address]
--- OUTSIDE RECORDS SUMMARY | 2024-01-16 10:18 | External Medical Summary | Summary of Care ---
Author Name Unknown Organization [facility] Address [address] [place] [address] Phone [phone] Care Team Providers Care Vascular Sonographer Name Role Phone Aayush Plata MD Primary Care Provider Encounter Details Date Type Department Care Team (Latest Contact Info) Description 08/27/2023 8:38 AM EDT - 08/27/2023 12:24 PM EDT Hospital Encounter OR [facility], Operating Room, [facility] - 4th Floor [address] [facility] [place] [id number] [facility], In And Out Surgery [address] [facility] [place] [address] Discharge Disposition: Home - Self Care Allergies Active Allergy Reactions Criticality Noted Date [...] directed via G tube via bolus syringe 47804 mL 11 07/11/2023 Active Apixaban 2.5 MG Oral Tablet (Eliquis) 1 Tablet. 0 07/23/2023 Discontinue d(Refill) Carvedilol 6.25 MG Oral Tablet (Coreg) 1 Tablet. 0 07/27/2023 08/27/19 2 4 Discontinue d(Refill) documented as of this encounter [...] mRNA, LNP-s, No Pre serve, 2-Dose Series ([facility]) 03/16/2021,08/12/2020,07/22/2020 Covid-19, Mrna, Lnp-s, Pf, B ivalent, [...] Sign Reading Time Taken Comments Blood Pressure 125/68 08/27/2023 12:14 PM EDT Pulse 60 08/27/2023 12:14 PM EDT Temperature 36.5 C (97.7 F) 08/27/2023 12:14 PM E DT Respiratory Rate 18 08/27/2023 12:14 PM EDT Oxygen Saturation 96% 08/27/2023 12:14 PM EDT Inhaled Oxygen Concentration - - Weight 49.9 kg (110 lb) 08/27/2023 8:47 AM EDT Height 162.6 cm (5' 4") 08/27/2023 8:47 AM EDT Body Mass Index 18.88 08/27/2023 8:47 AM EDT documented in this encounter Functional [...] No 02/22/2015 documented as of this encounter Discharge Summaries * Martir Khalil MD - 08/27/2023 11:58 AM EDT [address] [address] Admission Date: 08/27/2023 Discharge Date: 08/27/2023 Discharge Date: 08/27/2023 You may call Doctor Remi of the department of Pulmonary at [phone] during business hours for anyquestions or test results. For after-hours emergencies call [phone] and have your doctor paged. The information below provides you with the instructions and the list of medications you need to betaking following discharge from the hospital. If you have any questions, please ask before leaving.Please carry this letter with you when you see your doctor in the clinic. If you have questions, you can reach us at the numbers above. Brief summary of your inpatient care: Patient had thoracentesis done for left pleural effusion withassociated shortness of breath. Procedure was done with bedside ultrasound evaluation and local anesthesia with lidocaine. Please see procedure note for details. Moderate sized left pleural effusion noted. Fluid obtained was sent for analysis and postprocedure chest x-ray was obtained. Results of the test will be discussed with patient as a follow-up from Pulmonary Clinic. Procedure was well tolerated. Your doctors during this hospitalization included: Dr Khalil Your primary diagnosis at discharge was left pleural effusion s/p thoracentesis Inpatient test results pending: Left pleural fluid analysis Operations & Procedures: Left thoracentesis Complications: none significant Advance Directive Documented: Advance Directive Does the Patient have an Advance Directive? Not Addressed Diet: Previous diet Activity: No strenuous activity for 24 hours Driving: N/A. Date you may return to work or school: N/A See your primary care physician (Aayush Plata MD) as previously scheduled Special Instructions: Call the number stated above or go to the emergency room in the event of any worsening shortness of breath, chest pain, dizziness, bleeding, or any new symptoms. Disposition: Discharge home documented in this encounter Progress Notes * Martir Khalil MD - 08/27/2023 11:56 AM EDT PROGRESS NOTE - Thoracic Surgery [address] [address] Name: Sharmin [place] Location: 4th floor procedure Date: 08/27/2023 Time: 11:56 AM DIAGNOSIS: Left pleural effusion OPERATION: Thoracentesis SURGEON: Dr Khalil SUBJECTIVE: Patient had thoracentesis done for left pleural effusion with associated shortness of breath. Procedure was done with bedside ultrasound evaluation and local anesthesia with lidocaine. Please see procedure note for details. Moderate sized left pleural effusion noted. Fluid obtained was sent for analysis and postprocedure chest x-ray was obtained. Results of the test will be discussed with patient as a follow-up from Pulmonary Clinic. Procedure was well tolerated. VITAL SIGNS: Reviewed. PHYSICAL EXAM: Stable CXR: normal post-op appearance PLAN: Discharge home documented in this encounter H&P Notes * Martir Khalil MD - 08/27/2023 11:06 AM EDT PROGRESS NOTE - Thoracic Medicine Service [address] [address] Name: Sharmin [place] Location: 4th floor procedure room Date: 08/27/2023 Time: 09:06 AM PROBLEMS: Left pleural effusion Shortness of breath H/o breast cancer H/o tongue cancer SUBJECTIVE: Patient was recently seen by her primary doctor and continues to complain of shortness of breath particularly with any form of mild exertion. Patient had chest x-ray which showed evidenceof significant left pleural effusion. She was referred for further evaluation and thoracentesis. She is on low-dose Eliquis which was held the day before. OBJECTIVE: Most Recent Vital Signs: BP: 116 mmHg/58 mmHg (08/27/23 1045) Pulse: 62 (08/27/23 1045) Temp: 36.39 C (08/27/23 1045) Temp Summary: Temp Min: 36.2 C (97.2 F) Max: 36.5 C (97.7 F) SpO2: 96 % (08/27/23 1045) O2 flow rate: Supplemental O2 Delivery: Room Air, None (08/27/23 1045) Vital Signs Last 24 Hours: Temp Av.4 C (97.5 F) Min: 36.2 C (97.2 F) Max: 36.5 C (97.7 F) Pulse: Pulse Av.6 Min: 60 Max: 72 Respirations: Resp Av Min: 18 Max: 21 SpO2: SpO2 Av.1 % Min: 96 % Max: 97 % No intake or output data in the 24 hours ending 08/27/23 1106 Constitutional: no acute distress HEENT: unchanged Eyes: unchanged Neck: unchanged CV: first and second heart sound Chest: symmetrical, not labored at rest, air entry is decreased bilaterally, left more than right. Abdomen: soft, bowel sounds normal, Gastrostomy Extremities: no edema Skin: warm: Neuro: alert awake and oriented Psych: normal mood and affect LABS: Latest Reference Range & Units 06/27/23 14:32 08/14/23 14:21 Sodium 135 - 146 mmol/L 143 139 Potassium 3.5 - 5.1 mmol/L 4.3 4.5 Chloride 98 - 107 mmol/L 103 101 CO2 22 - 32 mmol/L 29 29 BUN 6 - 20 mg/dL 31 (H) 25 (H) Creatinine 0.5 - 1.0 mg/dL 0.6 0.6 Estimated Glomerular Filtration Rate >=60 mL/min 90 >90 Anion Gap 7 - 15 mmol/L 11 9 Glucose 70 - 120 mg/dL 100 111 Calcium 8.4 - 10.2 mg/dL 9.9 10.1 Magnesium 1.5 - 2.6 mg/dL 2.2 Prealbumin 18 - 45 mg/dL 19 Latest Reference Range & Units 09/22/22 10:06 08/23/23 11:24 WBC 4.00 - 10.80 K/uL 3.59 (L) 5.12 RBC 3.85 - 5.15 M/uL 3.93 4.00 HGB 12.0 - 15.3 g/dL 12.3 12.4 HCT 36.0 - 45.2 % 37.5 39.2 MCV 81.5 - 97.5 fL 95.4 98.0 MCH 27.0 - 34.0 pg 31.3 31.0 MCHC 32.0 - 36.0 g/dL 32.8 31.6 RDW 11.5 - 15.5 % 13.6 15.5 PLT 140 - 400 K/uL 140 220 MPV 6.6 - 11.1 fL 11.6 13.1 IMAGING: Chest x-ray was reviewed by me on PACs. Moderate size left pleural effusion with associated atelectasis. Agree with the rest of the report of the radiologist. PLAN: Thoracentesis Risks and benefits of procedure were discussed. Risks discussed include but not limited to bleeding, infection, pneumothorax. Patient agreed to have procedure done and signed the consent. Postprocedure chest x-ray will be obtained. Results of the test will be discussed with the patient at a follow-up from Pulmonary Clinic. DISCLAIMER: This dictation was verbally transcribed via Dictation system. Occasional Errors, spelling flaws andomissions are inherent in digital transcriptions. Please contact the undersigned for any clarification/correction in the dictated transcript as needed. documented in this encounter Procedure Notes * Martir Khalil MD - 08/27/2023 11:53 AM EDT PROCEDURE NOTE - Thoracentesis - Thoracic medicine Service [address] [address] Name: Sharmin [place] Location: 4th floor procedure room Date: 08/27/2023 Time: 11:54 AM PRIOR TO PROCEDURE: Verify Correct Patient: Yes Verify Correct Site: Yes Verify Procedure Matches Verbalized Consent: Yes Verify Correct Position: Yes Availability of Necessary Equipment: Yes Other Healthcare Professional(s) Verbalize(s) Agreement with Timeout: Yes Anticoagulation/Anti-platelet therapy: Yes - Apixaban which was stopped Site Marked: Yes INFORMED CONSENT: Discussion was held with the patient concerning thoracentesis. The risks and benefits were explained with possible risks to include bleeding, pneumothorax, hemothorax, pulmonary contusion, pulmonary laceration, puncture of the diaphragm, liver or spleen, and infection. The patientfreely signed the consent. PROCEDURE NOTE: Procedure: Thoracentesis Indication: pleural effusion Anesthesia: 1% xylocaine 10 ml Worm Packer/Physical Therapist: Dr Khalil Complication/Corrective Action: none Fluid: color straw colored and amount: 1000 ml Character: watery Comments/Findings: none Description of the Procedure: The risks and benefits were explained to the patient who expressed an understanding and signed consent. The patient was seen and the site of procedure properly noted/marked. The patient kept at bedside, identified as Sharmin [place] and the procedure verified as Thoracentesis (removal of fluid from around the left lung). A Time Out was held and the above information confirmed. Xylocaine was used to raise a wheal over the left rib using a 25 gauge needle with further subcutaneous infiltration to the underlying rib and pleura with a 22 gauge needle. Pleural fluid was recovered by puncture of the pleura with a 25G needle and 1000 ml removed and sent for protein, glucose, cell count, cytology, cultures, and LDH. Subsequently, a thoracentesis catheter was placed through thesame site into the pleural space and secured and 1000 ml of fluid was removed. After drainage, the catheter was removed and secure bandage was placed. Post Procedure X-ray: ordered I performed the procedure. documented in this encounter Nursing Notes * Addie Amezcua RN - 08/27/2023 12:23 PM EDT [place] [address] [facility] Discharge Note Name: Sharmin [place] Date: 08/27/2023 Time: 12:23 PM Discharge Disposition: Home Responsible adult as escort home: spouse Transport Mode: Ambulatory Accompanied by: Donn Amezcua RN To: Car Belongings with patient: Yes Patient meets criteria to be transferred or discharged. * Chantell Elizabeth RN - 08/27/2023 9:03 AM EDT Patient does not meet criteria for testing. documented in this encounter Miscellaneous Notes * Ancillary Progress Note - Chiquis Espinoza CRT - 08/27/2023 9:54 AM EDT Pt to special procedure room for left thoracentesis by Dr. Khalil. Pt placed on vitals monitor, consent obtained and time-out performed. Physician confirmed presence of fluid on left side using ultrasound and site was marked. Lidocaine 1% used to numb site. 1000 ml straw colored fluid drained from left pleural space. Fluid sent to lab for analysis. Pt returned to [facility] where portable cxr will be completed. documented in this encounter Plan of Treatment Upcoming Encounters Date Type Department Care Team (Late st Contact Info) Description 09/21/2023 3:00 PM EDT Office Visit Gynecology/Obstetrics [facility] [address] [place] [address] Balbina Naik CRNP [address] [place] [address] 09/28/2023 1:30 PM EDT Office Visit Cardiology, [facility] [address] [place] [address] Allan Siddiqui PA-C [address] [place] [address] 11/27/2023 9:20 AM EDT Office Visit Family Practice [facility] [address] [place] [address] Foster Zuniga MD [address] [place] [address] 01/14/2024 1:30 PM EDT Nurse Only Rheumatology [place] [id number] [facility] [place] [address] Pf, Nurse Rheum [address] [place] [address] 06/23/2024 11:30 AM EST Imaging Radiology [facility] [address] [facility] [place] [address] 07/09/2024 11:30 AM EDT Office Visit Urology, [facility] [address] [facility] [place] [address] Spencer Kumari MD [address] [facility] [place] [address] Pending Results Name Type Priority Associated Diagnoses Date /Time CULTURE, BODY FLUID, AEROBIC AND ANAEROBIC Lab Routine 08/27/2023 10:50 AM EDT CULTURE,FUNGUS,NON-DERM Lab Routine 0 08/27/2023 10:50 AM EDT CULTURE, AFB Lab Routine 08/27/2023 1 0:50 AM EDT CYTOLOGY Pathology Routine 08/27/2023 10: 50 AM EDT CELL COUNT WITH DIFFERENTIAL, BODY FLUID Lab STAT 024 10:50 AM EDT MANUAL DIFFERENTIAL, BODY FLUID Lab STAT 08/27/2023 10:50 AM EDT BODY FLUID INTERPRETATION Lab STAT 08/27/2023 10:50 AM EDT Scheduled Orders Name Type Priority Associated Diagnoses Orde r Schedule CULTURE, AFB Lab Routine Perform Now for 1 Occurrences starting 08/27/2023 until 08/27/2023 CYTOLOGY Pathology Routine One Time for 1 Occurrences starting 08/27/2023 until 08/27/2023, 1 completed CELL COUNT WITH DIFFERENTIAL, BODY FLUID Lab STAT One Time for 1 Occurrences starting 08/27/2023 until 08/27/2023 MANUAL DIFFERENTIAL, BODY FLUID Lab STAT Once for 1 Occur rences starting 08/27/2023 until 08/27/2023, 1 completed CYTOLOGY Pathology Routine One Time for 1 Occurrences starting 08/27/2023 until 08/27/2023 Health Maintenance Due Date Last Done Comments [...] D LEVEL ONCE IN A LIFETIME-USE SMARTSET# [id number] Completed 06/27/2023, 01/10/2021, 09/25/2008 [facility]-HPV IMMUNIZATION SERIES [...] Priority Date/Time Associated Diagnosis Comments XR CHEST 1 VIEW STAT 08/27/2023 11:11 AM EDT CULTURE, BODY FLUID, AEROBIC AND ANAEROBIC Routine 08/27/2023 10:50 AM EDT PROTEIN, BODY FLUID Routine 08/27/2023 1 0:50 AM EDT GLUCOSE, BODY FLUID Routine 08/27/2023 1 0:50 AM EDT LD, BODY FLUID Routine 08/27/2023 10:50 AM EDT CELL COUNT, BODY FLUID STAT 08/27/2023 10:50 AM EDT CULTURE,FUNGUS,NON- DERM Routine 08/27/2023 10:50 AM EDT documented in this encounter Results * XR CHEST 1 VIEW (08/27/2023 11:11 AM EDT) Anatomical Region Laterality Modality Chest Digital Radiogra phy 08/27/2023 10:5 9 AM EDT Impressions 08/27/2023 11:31 AM EDT IMPRESSION: 1. No pneumothorax status post thoracentesis 2. Small left pleural effusion and left basilar consolidation 3. Chronic changes of the lung parenchyma similar to previous. THIS DOCUMENT HAS BEEN ELECTRONICALLY SIGNED BY BASILIO ARCHER MD Narrative 08/27/2023 11:31 AM EDT PROCEDURE INFORMATION: Exam: XR Chest Exam date and time: 08/27/2023 10:59 AM Age: 78 years old Clinical indication: Other: S/P thoracentesis; Additional info: Post procedure TECHNIQUE: Imaging protocol: Radiologic exam of the chest. Views: 1 view. COMPARISON: CR XR CHEST 2 VIEWS 08/23/2023 11:18 AM FINDINGS: Lungs: Hyperinflated lungs and chronic changes of the lung parenchyma. Left basilar consolidation likely atelectatic. Pleural spaces: See "Bones/joints" finding. Heart/Mediastinum: Unremarkable. No cardiomegaly. Bones/joints: Left total knee significantly increased from previous. Mild no pneumothorax Procedure Note Basilio Archer MD - 08/27/2023 PROCEDURE INFORMATION: Exam: XR Chest Exam date and time: 08/27/2023 10:59 AM Age: 78 years old Clinical indication: Other: S/P thoracentesis; Additional info: Postprocedure TECHNIQUE: Imaging protocol: Radiologic exam of the chest. Views: 1 view. COMPARISON: CR XR CHEST 2 VIEWS 08/23/2023 11:18 AM FINDINGS: Lungs: Hyperinflated lungs and chronic changes of the lung parenchyma.Left basilar consolidation likely atelectatic. Pleural spaces: See "Bones/joints" finding. Heart/Mediastinum: Unremarkable. No cardiomegaly. Bones/joints: Left total knee significantly increased from previous. Mildno pneumothorax IMPRESSION IMPRESSION: 1. No pneumothorax status post thoracentesis 2. Small left pleural effusion and left basilar consolidation 3. Chronic changes of the lung parenchyma similar to previous. THIS DOCUMENT HAS BEEN ELECTRONICALLY SIGNED BY BASILIO ARCHER MD Martir Khalil MD RADIOLOGY (RAD GENER AL) * CELL COUNT, BODY FLUID (08/27/2023 10:50 AM EDT) Clarity, Fluid Clear Clear 08/27/2023 12:31 PM EDT LABORATORY [facility] Color, Fluid Yellow Straw, Yellow, Colorless 08/27/2023 12:31 PM EDT LABORATORY [facility] Total Nucleated Cell Count, Fluid 1,539 <3,800 cells/uL 08/27/2023 12:31 PM EDT LAB[facility]ATORY [facility] RBC, Fluid 2,000 cells/uL 08/27/2023 12:31 PM EDT LABORATORY [facility] Body Fluid Left pleural fluid / Unknown Non-blood Collection / Unknown 08/27/2023 10:50 AM EDT 08/27/2023 10:50 AM EDT [facility] LABORATORY [facility] - 08/27/2023 12:31 PM EDT Some reference ranges and other method performance specifications have not been established for this fluid. The test results must be integrated into the clinical context for interpretation. Martir Khalil MD LAB FLUID AND STOOL ORDERAB[place] [address] * PROTEIN, BODY FLUID (08/27/2023 10:50 AM EDT) Protein, Body Fluid 5.0 g/dL 08/26 6:09 PM EDT [facility] Comment: The reference interval(s) and other method performance specifications may not be available for this body fluid. Comparison of this result with the concentration in the blood, serum, or plasma is recommended. The test result must be integrated into the clinical context for interpretation. Please refer to test catalog (https://www.[email or web address]/catalog/body_fluids.cfm) for additional interpretive information. This test was developed and its performance characteristics determined by [employer]. It has not been cleared or approved by the [place] Food and Drug Administration. Body Fluid Left pleural fluid / Unknown Non-blood Collection / Unknown 08/27/2023 10:50 AM EDT 08/27/2023 10:50 AM EDT Martir Khalil MD LAB FLUID AND STOOL ORDERABLES Performing Organization Address [facility] de Phone Number LABORATORY [place] [address] [place] [address] * LD, BODY FLUID (08/27/2023 10:50 AM EDT) LD, Body Fluid 211 U/L 08/27/2023 6:09 PM EDT LAB[facility]ORY [facility] Comment: The reference interval(s) and other method performance specifications may not be available for this body fluid. Comparison of this result with the concentration in the blood, serum, or plasma is recommended. The test result must be integrated into the clinical context for interpretation. Please refer to test catalog (https://www.[employer]/catalog/body_fluids.cfm) for additional interpretive information. This test was developed and its performance characteristics determined by [employer]. It has not been cleared or approved by the [place] Food and Drug Administration. Body Fluid Left pleural fluid / Unknown Non-blood Collection / Unknown 08/27/2023 10:50 AM EDT 08/27/2023 10:50 AM EDT Martir Khalil MD LAB FLUID AND STOOL ORDERABLES Performing Organization Address [facility] de Phone Number LABORATORY [address] [address] * GLUCOSE, BODY FLUID (08/27/2023 10:50 AM EDT) Glucose, Body Fluid 149 mg/dL 08/26 6:09 PM EDT [facility]ORY [facility] Comment: The reference interval(s) and other method performance specifications may not be available for this body fluid. Comparison of this result with the concentration in the blood, serum, or plasma is recommended. The test result must be integrated into the clinical context for interpretation. Please refer to test catalog (https://www.[employer].com/catalog/body_fluids.cfm) for additional interpretive information. This test was developed and its performance characteristics determined by [employer]. It has not been cleared or approved by the [place] Food and Drug Administration. Body Fluid Left pleural fluid / Unknown Non-blood Collection / Unknown 08/27/2023 10:50 AM EDT 08/27/2023 10:50 AM EDT Martir Khalil MD LAB FLUID AND STOOL ORDERABLES LABORATORY [facility] [address] [place] [address] documented in this encounter Visit Diagnoses Diagnosis Pleural effusion Unspecified pleural effusion documented in this encounter Advance Directives Healthcare Agents on File Name Relationship Healthcare Agent [facility] p Communication Cristobal [place] Spouse Health Care Repr esentative (appointed verbally by patient or by statute hierarchy) Care Teams Vascular Sonographer Relationship Specialty Start Date End Date Aayush Plata MD [address] [facility] [place] [address] PCP - General Family Medicine 08/23/23 documented as of this encounter
--- OUTSIDE RECORDS SUMMARY | 2024-01-16 10:18 | External Medical Summary ---
Author Name Unknown Address Unknown Organization [id number]:LABORATORY [facility] - [address] [place] [address] Laboratory Report Ordering Provider Test Date Status TJ CHONG 08/27/2023 10:50:48 Final Observation Date Value Abnormality Reference (Units ) Status Bacteria identified in Specimen by Culture 08/27/2023 10:50:48 No acid fast bacilli isolated Final Microscopic observation [Identifier] in Specimen by Rhodamine-auramine fluorochrome stain 08/27/2023 10:50:48 No acid fast bacilli seen Final Test: Culture, AFB
Speci men Source: Pleural fluid, Left
Specimen Type: Body Fluid
Specimen Date: 08/27/2023 1050
Result Date: 10/23/2023 0716
Result Status: Final result
Resulting Lab: LABORATORY [facility]
[address]
[place] [address]

CULTURE

No acid fast bacilli isolated

STAIN

No acid fast bacilli seen

null Performing Location LABORATORY [facility] - [address] [place] [address]
--- OUTSIDE RECORDS SUMMARY | 2024-01-16 10:19 | External Medical Summary ---
Author Name Unknown Address Unknown Organization K01:LABORATORY [place] [address] [place] [id number] Laboratory Report Ordering Provider Test Date Status TJ CHONG 08/27/2023 10:50:48 Final Observation Date Value Abnormality Reference (Units) Status Bacteria identified in Specimen by Culture 08/27/2023 10:50:48 No aerobic or anaerobic growth Final Gram Stain 08/27/2023 10:50:48 Many Polymorphonuclear leukocytes Abnormal Final Gram Stain 08/27/2023 10:50:48 No organisms seen Abnormal Final Test: Culture, Body Fluid, A erobic and Anaerobic
Specimen Source: Pleural fluid, Left
Specimen Type: Body Fluid
Specimen Date: 08/27/2023 10:50 AM
Result Date: 09/03/2023 10:12 AM
Result Status: Final result
Abnormal: Yes
Resulting Lab: LABORATORY [facility]
[address]
[place] [address]

CULTURE

No aerobic or anaerobic growth

STAIN

Many Polymorphonuclear leukocytes

No organisms seen

null Performing Location LABORATORY [facility] - [address] [place] [address]
--- OUTSIDE RECORDS SUMMARY | 2024-01-16 10:19 | External Medical Summary | Summary of Care ---
Author Name Unknown Organization [facility] Address [address] [address] Phone [phone] Care Team Providers Care Adventure Guide Name Role Phone Aayush Medrano MD Primary Care Provider Reason for Visit * Reason Onset Date Comments Test Results 08/24/2023 F/U 08/26 thorace ntesis Encounter Details Date Type Department Care Team (Late st Contact Info) Description 08/24/2023 Telephone Pulmonary Medicine Patrick Lemus [address] [place] [address] Martir Khalil MD [address] [place] [address] Test Results (F/U 08/26 thoracentesis) Allergies Active Allergy Reactions Criticality Noted Date Comments Penicillins 10/25/1999 rash and given shot as a child, has tolerated augmentin ok as well as cephalosporin documented as of this encounter (statuses as of 08/24/2023) Medications Medication Sig Dispensed Refills Start Date [...] directed via G tube via bolus syringe 06642 mL 11 07/11/2023 Active Apixaban 2.5 MG Oral Tablet (Eliquis) 1 Tablet. 0 07/23/2023 Active Carvedilol 6.25 MG Oral Tablet (Coreg) 1 Tablet. 0 07/27/2023 Activ e Hospital, Clinic, or Other Facility Administered Medication Ordered Dose Route Frequency Start Date End Date Status Denosumab (Prolia) subcut inj 60 mgIndications:Senile osteoporosis 60 mg SC [id number] 07/11/2023 07/05/2024 Active documented as of this encounter (statuses as of 08/24/2023) Active Problems Problem Noted Date Diagnosed Date Paroxysmal atrial fibrillation 08/23/2023 Acute mastitis 05/25/2023 [...] as of this encounter (statuses as of 08/24/2023) Resolved Problems Problem Noted Date Diagnosed Date [...] as of this encounter (statuses as of 08/24/2023) Immunizations Name Administration Dates Next Due COVID-19 mRNA, LNP-s, No Pre serve, 2-Dose Series ([employer]) 03/16/2021,08/12/2020,07/22/2020 Covid-19, Mrna, Lnp-s, Pf, B ivalent, 30 Mcg, IM, 12 yrs and above ([employer]) 02/24/2022 Pneumococcal Conjugate Vacc, 13 Valent (Prevnar) [...] encounter Miscellaneous Notes * Telephone Encounter - Ivelisse, July D, ARI - 08/24/2023 6:13 PM EDT Spoke with pt. She was very hard to understand on the phone. Pt got her , Cristobal, on the lineto speak to. Cristobal is aware of procedure on Sunday morning at [facility]. Cristobal is aware the OR will call first thing Sunday morning with an arrival time. He's aware to hold the pt's Eliquis on Sunday and Sunday, resumeon Sunday. Directions were given to [facility]. * Telephone Encounter - Christina Oviedo OSA - 08/24/2023 3:36 PM EDT Thoro scheduled [...] Team (Late st Contact Info) Description 08/27/2023 Hospital Encounter OR [facility], Operating Room, [facility] - 4th Floor [address] [address] [facility], In And Out Surgery [address] [place] [address] 08/27/2023 9:30 AM EDT PulmDiagnostic Pulmonary Function Lab, [facility] [address] [place] [address] 09/21/2023 3:00 PM EDT Office Visit Gynecology/Obstetric s Prashanth Ambrocio [address] [place] [address] Balbina Naik CRNP [address] [place] [address] 09/28/2023 1:30 PM EDT Office Visit Cardiology, [facility] 132 [facility] [place] [address] Allan Siddiqui PA-C 132 [facility] [place] [address] 11/27/2023 9:20 AM EDT Office Visit Family Practice [facility] 132 [facility] [place] [address] Foster Zuniga MD 132 [facility] [place] [address] 01/14/2024 1:30 PM EDT Nurse Only Rheumatology [address] [place] [address] Pf, Nurse Rheum [address] [place] [address] [place] [address] 06/23/2024 11:30 AM EST Imaging Radiology [facility] 1st [facility] 132 [facility] [place] [address] 07/09/2024 11:30 AM EDT Office Visit Urology, [facility] 132 [facility] [place] [address] Spencer Kumari MD 27 [facility] [address] [place] [id number] Scheduled Procedures Name Priority Associated Diagnoses Date/Ti me PRE / POST CARE Pleural effusion Health Maintenance Due Date Last Done Comments [...] D LEVEL ONCE IN A LIFETIME-USE SMARTSET# [id number] Completed 06/27/2023, 01/10/2021, 09/25/2008 GARDASIL-HPV IMMUNIZATION SERIES [...] patient or by statute hierarchy) Care Teams Adventure Guide Relationship Specialty Start Date End Date Aayush Medrano MD [address] [place] [address] PCP - General Family Medicine 08/23/23 documented as of this encounter
--- OUTSIDE RECORDS SUMMARY | 2024-01-16 10:19 | External Medical Summary | Summary of Care ---
Author Name Unknown Organization [facility] Address [address] [place] [address] Phone [phone] Care Team Providers Care Self Pay Specialist Name Role Phone Unavailable Primary Care Provider Unavailabl e Reason for Visit * Reason Onset Date Comments Advice 08/14/2023 Encounter Details Date Type Department Care Team (Late st Contact Info) Description 08/14/2023 Telephone Gastroenterology, [facility] [address] [place] [address] Imtiaz Kinsey MD [address] [place] [address] Advice Allergies Active Allergy Reactions Criticality Noted [...] directed via G tube via bolus syringe 68939 mL 11 07/11/2023 Active Apixaban 2.5 MG Oral Tablet (Eliquis) 1 Tablet. 0 07/23/2023 Active Carvedilol 6.25 MG Oral Tablet (Coreg) 1 Tablet. 0 07/27/2023 Activ e Hospital, Clinic, or Other Facility Administered Medication Ordered Dose Route Frequency Start Date End Date Status Denosumab (Prolia) subcut inj 60 mgIndications:Senile osteoporosis 60 mg SC [id number] 07/11/2023 07/05/2024 Active documented as of this [...] mRNA, LNP-s, No Pre serve, 2-Dose Series ([employer]) 03/16/2021,08/12/2020,07/22/2020 Covid-19, Mrna, Lnp-s, Pf, B ivalent, [...] encounter Miscellaneous Notes * Telephone Encounter - Mayra Orellana OSA - 08/16/2023 1:54 PM EDT Someone is already on the schedule for Sunday and they did not want to travel to [place]. Pt is scheduled for Sunday08/22/23 at 3:30 ARI Martinez 08/16/2023 1:54 PM * Telephone Encounter - Lisa Morales OSA - 08/14/2023 4:22 PM EDT Nurys is calling back he said he would be able to do Dallin Ambrocio on Sunday with Dr Encarnacion not sure of a time since nothing was marked please give him a call back with time * Telephone Encounter - Mayra Orellana OSA - 08/14/2023 2:35 PM EDT Lmm for pt to either call or [place] for scheduling ARI [place] 08/14/2023 2:35 PM * Telephone Encounter - Mayra Orellana OSA - 08/14/2023 2:[address] Kinsey: Sure, I can do this in [facility] tomorrow if pt willing to travel. If not, then Sunday at * Telephone Encounter - Sherri Umanzor RN - 08/14/2023 9:50 AM EDT Patients calling it with concerns that Sharmin is having increase in pain from her G tube site and even more with her feedings. She is due to have tube changed out in August. He is asking if this should/could be scheduled sooner? Patient is not having difficulty with tube functioning, no concerns with appearance of tube. It was last changed in January with Dr. Santos. Dr. Brady, Please advise? Thank you documented in this encounter Plan of Treatment Upcoming Encounters Date Type Department Care Team (Late st Contact Info) Description 08/24/2023 2:00 PM EDT Office Visit Gastroenterology, Prashanth Ambrocio, [address] [place] [address] Imtiaz Kinsey MD [address] [place] [address] 09/03/2023 12:00 PM EDT Office Visit Gastroenterology, [facility] [address] [place] [address] Imtiaz Kinsey MD [address] [place] [address] 09/21/2023 3:00 PM EDT Office Visit Gynecology/Obstetrics [facility] [place] [facility] [address] Balbina Naik CRNP [address] [place] [address] 09/28/2023 1:30 PM EDT Office Visit Cardiology, [facility] [place] [address] Allan Siddiqui PA-C [address] [place] [address] 11/27/2023 9:20 AM EDT Office Visit Family Practice [facility] 132 [facility] [place] [address] Foster Zuniga MD [address] [place] [address] 01/14/2024 1:30 PM EDT Nurse Only Rheumatology [place] [address] [address] [place] [address] Pf, Nurse Rheum [address] [place] [address] [place] [address] 06/23/2024 11:30 AM EST Imaging Radiology [facility] [place] [address] [facility] [address] [address] 07/09/2024 11:30 AM EDT Office Visit Urology, [facility] [address] [place] [address] Spencer Kumari MD 27 [facility] [place] [address] [place] [place] [address] Health [...] D LEVEL ONCE IN A LIFETIME-USE SMARTSET# [id number] Completed 06/27/2023, 01/10/2021, 09/25/2008 GARDASIL-HPV IMMUNIZATION SERIES [...]
--- OUTSIDE RECORDS SUMMARY | 2024-01-16 10:19 | External Medical Summary | Summary of Care ---
Author Name Unknown Organization [facility] Address [address] [place] [address] Phone [phone] Care Team Providers Care Special Procedures Nurse Name Role Phone Aayush Medrano MD Primary Care Provider Reason for Visit * Reason Onset Date Comments Test Results 08/24/2023 Encounter Details Date Type Department Care Team (Late st Contact Info) Description 08/24/2023 Telephone Family Practice [facility] [place] [address] Aayush Medrano MD 132 [...] directed via G tube via bolus syringe 11921 mL 11 07/11/2023 Active Apixaban 2.5 MG Oral Tablet (Eliquis) 1 Tablet. 0 07/23/2023 Active Carvedilol 6.25 MG Oral Tablet (Coreg) 1 Tablet. 0 07/27/2023 Activ e Hospital, Clinic, or Other Facility Administered Medication Ordered Dose Route Frequency Start Date End Date Status Denosumab (Prolia) subcut inj 60 mgIndications:Senile osteoporosis 60 mg SC [id number] 07/11/2023 07/05/2024 Active documented as of this [...] mRNA, LNP-s, No Pre serve, 2-Dose Series ([employer]) 03/16/2021,08/12/2020,07/22/2020 Covid-19, Mrna, Lnp-s, Pf, B ivalent, 30 Mcg, IM, 12 yrs and above ([employer]) 02/24/2022 Pneumococcal Conjugate Vacc, 13 Valent (Prevnar) [...] Telephone Encounter - Aayush Medrano MD - 08/24/2023 3:16 PM EDT Xray results show a moderate sized unilateral effusion. Patient recently had PNA for which she was hospitalized. Recommend thoracentesis based on finding. I called and discussed the results with the patient's who voiced understanding. Also discussed with Neha her case management social worker here. I contacted Dr Khalil of Pulmonology via tiger text - his team will review the case and call the patient to arrange. Efraíne will need to hold apixaban (afib) based on protocol. documented in this encounter Plan of Treatment Upcoming Encounters Date Type Department Care Team (Late st Contact Info) Description 08/27/2023 Hospital Encounter OR [facility], Operating Room, [facility] - 4th Floor [address] [place] [address] [facility], In And Out Surgery [address] [place] [address] 09/21/2023 3:00 PM EDT Office Visit Gynecology/Obstetric s [facility] [address] [place] [address] Balbina Naik CRNP [address] [place] [address] 09/28/2023 1:30 PM EDT Office Visit Cardiology, [facility] [address] [place] [address] Allan Siddiqui, PARachellC [address] [place] [address] 11/27/2023 9:20 AM EDT Office Visit Family Practice [facility] [address] [place] [address] Foster Zuniga MD [address] [place] [address] 01/14/2024 1:30 PM EDT Nurse Only Rheumatology [place] [address] [facility] [place] [address] Pf, Nurse Rheum [facility] [place] [address] 06/23/2024 11:30 AM EST Imaging Radiology [facility] [address] [facility] 132 [facility] [place] [address] 07/09/2024 11:30 AM EDT Office Visit Urology, [facility] 132 [facility] [place] [address] Spencer Kumari MD 27 [facility] [address] [place] [address] Scheduled Procedures Name Priority Associated Diagnoses Date/Ti [...] D LEVEL ONCE IN A LIFETIME-USE SMARTSET# [id number] Completed 06/27/2023, 01/10/2021, 09/25/2008 GARDASIL-HPV IMMUNIZATION SERIES [...] patient or by statute hierarchy) Care Teams Special Procedures Nurse Relationship Specialty Start Date End Date Aayush Medrano MD [address] [place] [address] PCP - General Family Medicine 08/23/23 documented as of this encounter
--- OUTSIDE RECORDS SUMMARY | 2024-01-16 10:19 | External Medical Summary ---
Author Name Unknown Address Unknown Organization K01:LABORATORY [facility] - [address] [facility] [place] [address] Laboratory Report Ordering Provider Test Date Status RONEN DAVE 08/23/2023 11:24:42 Final Observation Date Value Abnormality Reference (Units ) Status SYNC LEUKOCYTES IN BLOOD BY AUTOMATED COUNT 08/23/2023 11:24:42 5.12 4.00-10.80 (K/uL) Final Segs 08/23/2023 11:24:42 68.9 40.0-75.0 (%) Final Lymphs % 08/23/2023 11:24:42 17.8 Below low normal 18.0-42.0 (%) Final Monos 08/23/2023 11:24:42 12.7 Above high normal 1.0-11.0 (%) Final Eosinophils 08/23/2023 11:24:42 0.0 0.0-6.0 (%) Final Basos 08/23/2023 11:24:42 0.2 0.0-2.0 (%) Final Immature Granulocyte, Percent 08/23/2023 11:24:42 0.4 0.0-2.0 (%) Final Absolute Segs 08/23/2023 11:24:42 3.53 1.80-7.70 (K/uL) Final Lymphs, absolute 08/23/2023 11:24:42 0.91 Below low normal 1.00-4.80 (K/ul) Final Monos, Abs 08/23/2023 11:24:42 0.65 0.00-1.10 (K/uL) Final Eos, Abs 08/23/2023 11:24:42 0.00 0.00-0.70 (K/uL) Final Basos, Abs 08/23/2023 11:24:42 0.01 0.00-0.20 (K/uL) Final Immature Granulocytes, Number 08/23/2023 11:24:42 0.02 0.00-0.20 (K/uL) Final Performing Location LABORATORY [facility] - [facility] [address] [facility] [address]
--- OUTSIDE RECORDS SUMMARY | 2024-01-16 10:19 | External Medical Summary ---
Author Name Unknown Address Unknown Organization K01:LABORATORY [facility] [place] - [facility] [address] [facility] [address] [facility] [address] Laboratory Report Ordering Provider Test Date Status JACKY CHONGDARBY 08/27/2023 10:50:48 Final Observation Date Value Abnormality Reference (Units ) Status Lactate dehydrogenase [Enzymatic activity/volume] in Body fluid by Lactate to pyruvate reaction 08/27/2023 10:50:48 211 (U/L) Final The reference interval(s) an d other method performance specifications may not be available for this body fluid. Comparison of this result with the concentration in the blood, serum, or plasma is recommended. The test result must be integrated into the clinical context for interpretation.

Please refer to test catalog ([email or web address]) for additional interpretive information.

This test was developed and its performance characteristics determined by [employer]. It has not been cleared or approved by the [place] Food and Drug Administration. Performing Location LABORATORY [facility] [place] - [facility] [address] [facility] [address]
--- OUTSIDE RECORDS SUMMARY | 2024-01-16 10:19 | External Medical Summary | Summary of Care ---
Author Name Unknown Organization [facility] Address [address] [place] [address] Phone [phone] Care Team Providers Care Import Coordination And Production Head Name Role Phone Aayush Medrano MD Primary Care Provider Reason for Visit * Reason Onset Date Comments Test Results 08/23/2023 Unexpected or In determinate Result Encounter Details Date Type Department Care Team (Late st Contact Info) Description 08/23/2023 Telephone Laboratory, [place] [address] [place] [address] Aayush Medrano MD [address] [facility] [address] Test Results (Unexpected or Indeterminate ... Allergies Active Allergy Reactions Criticality Noted Date Comments Penicillins 10/25/1999 rash and given shot as a child, has tolerated augmentin ok as well as cephalosporin documented as of this encounter (statuses as of 08/23/2023) Medications Medication Sig Dispensed Refills Start Date [...] directed via G tube via bolus syringe 84879 mL 11 07/11/2023 Active Apixaban 2.5 MG Oral Tablet (Eliquis) 1 Tablet. 0 07/23/2023 Active Carvedilol 6.25 MG Oral Tablet (Coreg) 1 Tablet. 0 07/27/2023 Activ e Hospital, Clinic, or Other Facility Administered Medication Ordered Dose Route Frequency Start Date End Date Status Denosumab (Prolia) subcut inj 60 mgIndications:Senile osteoporosis 60 mg SC [id number] 07/11/2023 07/05/2024 Active documented as of this encounter (statuses as of 08/23/2023) Active Problems Problem Noted Date Diagnosed Date [...] as of this encounter (statuses as of 08/23/2023) Resolved Problems Problem Noted Date Diagnosed Date [...] as of this encounter (statuses as of 08/23/2023) Immunizations Name Administration Dates Next Due COVID-19 mRNA, LNP-s, No Pre serve, 2-Dose Series ([employer]) 03/16/2021,08/12/2020,07/22/2020 Covid-19, Mrna, Lnp-s, Pf, B ivalent, 30 Mcg, IM, 12 yrs and above ([email or web address]) 02/24/2022 Pneumococcal Conjugate Vacc, 13 Valent (Prevnar) [...] Telephone Encounter - Aayush Medrano MD - 08/23/2023 4:09 PM EDT Received/reviewed. * Telephone Encounter - Shelli Solis OSA - 08/23/2023 4:01 PM EDT Shaanlo- The radiologist discovered an unexpected or indeterminate finding on Sharmin Jackson ([id number]) and asks that you review the following report. Study Type:XR CHEST 2 VIEWS Date of Study: 08/23/2023 IMPRESSION Moderate-sized left pleural effusion with left lower lobe atelectasis. A superimposed infectious etiology would be difficult to exclude. Please respond to this encounter to acknowledge receipt of this message and take responsibility to ensure this report is reviewed. Thank you, Shelli Solis, ARI Client Service Rep [facility] documented in this encounter Plan of Treatment Upcoming Encounters Date Type Department Care Team (Late st Contact Info) Description 08/24/2023 3:30 PM EDT Office Visit Gastroenterology, [facility] [address] [place] [address] Imtiaz Kinsey MD [address] [place] [address] 09/03/2023 12:00 PM EDT Office Visit Gastroenterology, [facility] [address] [place] [address] Imtiaz Kinsey MD [address] [place] [address] 09/21/2023 3:00 PM EDT Office Visit Gynecology/Obstetrics [facility] [address] [place] [address] Balbina Naik CRNP [address] [place] [address] 09/28/2023 1:30 PM EDT Office Visit Cardiology, [facility] [address] [place] [address] Allan Siddiqui, PARachellC [address] [place] [address] 11/27/2023 9:20 AM EDT Office Visit Family Practice [facility] 132 [facility] [place] [address] Foster Zuniga MD 132 [facility] [place] [address] 01/14/2024 1:30 PM EDT Nurse Only Rheumatology [place] [id number] [facility] [place] [address] Pf, Nurse Rheum [address] [place] [address] [place] [address] 06/23/2024 11:30 AM EST Imaging Radiology [facility] 132 [facility] [place] [address] 07/09/2024 11:30 AM EDT Office Visit Urology, [facility] 132 [facility] [place] [address] Spencer Kumari MD 27 [facility] [address] [place] [address] Health Maintenance Due Date Last Done Comments [...] D LEVEL ONCE IN A LIFETIME-USE SMARTSET# [id number] Completed 06/27/2023, 01/10/2021, 09/25/2008 GARDASIL-HPV IMMUNIZATION SERIES [...] patient or by statute hierarchy) Care Teams Import Coordination And Production Head Relationship Specialty Start Date End Date Aayush Medrano MD [address] [place] [address] PCP - General Family Medicine 08/23/23 documented as of this encounter
--- OUTSIDE RECORDS SUMMARY | 2024-01-16 10:19 | External Medical Summary ---
Author Name Unknown Address Unknown Organization K01:LABORATORY [facility] [place] - [address] [facility] [facility] [address] [place] [address] Laboratory Report Ordering Provider Test Date Status RONEN DAVE 08/23/2023 11:24:42 Final Observation Date Value Abnormality Reference (Units ) Status Ferritin 08/23/2023 11:24:42 49 13-150 (ng /mL) Final Postmenopausal women have hi gher ferritin levels than pre-menopausal women. The above reference interval is based on pre-menopausal women. Performing Location LABORATORY [facility] - [address] [place] [address]
--- OUTSIDE RECORDS SUMMARY | 2024-01-16 10:19 | External Medical Summary | Summary of Care ---
Author Name Unknown Organization [facility] Address [address] [place] [address] Phone [phone] Care Team Providers Care Loading Checker Name Role Phone Aayush Medrano MD Primary Care Provider Reason for Visit * Reason Comments Acute Pt here for still no t feeling well from being in the hospital. Was in the hospital for pneumonia and fluid on her lungs. Pt is still having left lower back pain. Encounter Details Date Type Department Care Team (Late st Contact Info) Description 08/23/2023 9:00 AM EDT Office Visit [facility] 132 [facility] [place] [address] Aayush Medrano MD [address] [place] [address] Fatigue, unspecified type*; History of pneumonia; Mastitis, left, acute; Paroxysmal atrial fibrillation (HCC) Allergies Active Allergy [...] directed via G tube via bolus syringe 12899 mL 11 07/11/2023 Active Apixaban 2.5 MG Oral Tablet (Eliquis) 1 Tablet. 0 07/23/2023 Active Carvedilol 6.25 MG Oral Tablet (Coreg) 1 Tablet. 0 07/27/2023 Activ e Hospital, Clinic, or Other Facility Administered Medication Ordered Dose Route Frequency Start Date End Date Status Denosumab (Prolia) subcut inj 60 mgIndications:Senile osteoporosis 60 mg SC [id number] 07/11/2023 07/05/2024 Active documented as of this [...] mRNA, LNP-s, No Pre serve, 2-Dose Series ([employer]) 03/16/2021,08/12/2020,07/22/2020 Covid-19, Mrna, Lnp-s, Pf, B ivalent, 30 Mcg, IM, 12 yrs and above ([employer]) 02/24/2022 Pneumococcal Conjugate Vacc, 13 Valent (Prevnar) [...] Sign Reading Time Taken Comments Blood Pressure 118/60 08/23/2023 9:01 AM EDT Pulse 70 08/23/2023 9:01 AM EDT Temperature 36.7 C (98 F) 08/23/2023 9:01 AM EDT Respiratory Rate 16 08/23/2023 9:01 AM EDT Oxygen Saturation 97% 08/23/2023 9:01 AM EDT Inhaled Oxygen Concentration - - Weight 51.2 kg (112 lb 12.8 oz) 08/23/2023 9:01 AM EDT Height 162.6 cm (5' 4") 08/23/2023 9:01 AM EDT Body Mass Index 19.36 08/23/2023 9:01 AM EDT documented in this [...] Progress Notes * Aayush Medrano MD - 08/23/2023 9:34 AM EDT Images from the original note were not included. History of Present Illness Sharmin Jackson is a 78 year old female that presents for Acute (Pt here for still not feeling well from being in the hospital. Was in the hospital for pneumonia and fluid on her lungs. Pt is still having left lower back pain.) She does not have any trouble breathing currently. Denies choking episodes. Still some pain in her back. No diarrhea. Urinating fine, no blood. Using her regular tube feed regimen Physical Exam BP 118/60 (BP Site: Left Arm, BP Position: Sitting, BP Cuff Size: Regular) Comment (BP Cuff Size): adult small | Pulse 70 | Temp 36.7 C (98 F) (Tympanic) | Resp 16 | Ht 1.626 m (5' 4") | Wt 51.2 kg (112 lb 12.8 oz) | SpO2 97% | BMI 19.36 kg/m | BSA 1.52 m AAOx3 Normal affect Voice normal for her per nurse - hx of trach Hunched posture NCAT/ RRR Lungs CTABL Abd soft +BS + feeding tube in place - there is mild drainage from the periphery of tube insertion site Ext warm and well perfused No gross neuro deficits Normal gait I have reviewed most recent labs CMP Assessment and Plan Fatigue, unspecified type - multifactorial. Will check for anemia/iron def considering recent admin of apixaban for stroke ppx w/ new dx afib. She is in sinus now though its possible she's having paroxysms. Also think the Beta ayde may be contributing to her feeling tired. History of pneumonia - hx aspiration. Completed PO abx. Will recheck xray today. Mastitis, left, acute - resolved. Paroxysmal Atrial Fibrillation - in normal rhythm on exam today. I think some of her sx may be from beta ayde and if rest of workup unremarkable can consider stopped the carvedilol. Wrap-Up Time: I spent a total of 40-54 [...] 08/24/2023 3:30 PM EDT Office Visit Gastroenterology, [facility] [address] [place] [address] Imtiaz Kinsey MD [address] [place] [address] 09/03/2023 12:00 PM EDT Office Visit Gastroenterology, [facility] [address] [place] [address] Imtiaz Kinsey MD [address] [place] [address] 09/21/2023 3:00 PM EDT Office Visit [facility]necology[facility] [address] [place] [address] Balbina Naik CRNP [address] [place] [address] 09/28/2023 1:30 PM EDT Office Visit Cardiology, [facility] [address] [place] [address] Allan Siddiqui PA-C [address] [place] [address] 11/27/2023 9:20 AM EDT Office Visit Family Practice [facility] 132 [place] [address] Foster Zuniga MD 132 [facility] [place] [address] 01/14/2024 1:30 PM EDT Nurse Only Rheumatology [address] [place] [address] Pf, Nurse Rheum [address] [place] [address] [place] [address] 06/23/2024 11:30 AM EST Imaging Radiology [address] 132 [facility] [place] [address] 07/09/2024 11:30 AM EDT Office Visit Urology, [facility] 132 [place] [address] Spencer Kumari MD 27 [facility] [address] [place] [address] Scheduled Orders Name Type Priority Associated Diagnoses Orde r Schedule XR CHEST 2 VIEWS Medical Imaging Routine Fatigue, unspecified type History of pneumonia Ordered: 08/23/2023 CBC WITH WBC DIFFERENTIAL AND ANEMIA REFLEX WORKUP Lab Routine Paroxysmal atrial fibrillation (HCC) Expected: 08/30/2023 (Approximate), Expires: 08/22/2024 FERRITIN Lab Routine Paroxysmal atrial fibrillation (HCC) Expected: 08/23/2023 (Approximate), Expires: 08/22/2024 Health Maintenance Due Date Last Done Comments [...] D LEVEL ONCE IN A LIFETIME-USE SMARTSET# [id number] Completed 06/27/2023, 01/10/2021, 09/25/2008 GARDASIL-HPV IMMUNIZATION SERIES [...] as of this encounter Visit Diagnoses Diagnosis Fatigue, unspecified type- Primary History of pneumonia Personal history of pneumonia (recurrent) Mastitis, left, acute Inflammatory disease of breast Paroxysmal atrial fibrillation (HCC) Atrial fibrillation documented in this encounter Advance Directives Healthcare Agents on File Name Relationship Healthcare Agent Relationshi p Communication Cristobal Manuel Spouse Health Care Repr esentative (appointed verbally by patient or by statute hierarchy) Care Teams Loading Checker Relationship Specialty Start Date End Date Aayush Medrano MD [address] [place] [address] PCP - General Family Medicine 08/23/23 documented as of this encounter
--- OUTSIDE RECORDS SUMMARY | 2024-01-16 10:19 | External Medical Summary | Summary of Care ---
Author Name Unknown Organization [facility] Address [address] [place] [address] Phone [phone] Care Team Providers Care Battery Container Finishing Hand Name Role Phone Aayush Medrano MD Primary Care Provider Reason for Visit * Reason Comments Outpatient Testing Encounter Details Date Type Department Care Team (Late st Contact Info) Description 08/23/2023 11:20 AM EDT Laboratory Laboratory, [facility] 132 [facility] [place] [address] [facility] 132 [place] [address] [employer] Other*[id number]; Paroxysmal atrial fibrillation (HCC) Allergies Active Allergy [...] directed via G tube via bolus syringe 26487 mL 11 07/11/2023 Active Apixaban 2.5 MG Oral Tablet (Eliquis) 1 Tablet. 0 07/23/2023 Active Carvedilol 6.25 MG Oral Tablet (Coreg) 1 Tablet. 0 07/27/2023 Activ e Hospital, Clinic, or Other Facility Administered Medication Ordered Dose Route Frequency Start Date End Date Status Denosumab (Prolia) subcut inj 60 mgIndications:Senile osteoporosis 60 mg SC [id number] 07/11/2023 07/05/2024 Active documented as of this [...] mRNA, LNP-s, No Pre serve, 2-Dose Series ([employer]) 03/16/2021,08/12/2020,07/22/2020 Covid-19, Mrna, Lnp-s, Pf, B ivalent, 30 Mcg, IM, 12 yrs and above ([employer]) 02/24/2022 Pneumococcal Conjugate Vacc, 13 Valent (Prevnar) [...] 08/24/2023 3:30 PM EDT Office Visit Gastroenterology, [facility] [address] [place] [address] Imtiaz Kinsey MD 132 [place] [address] 09/03/2023 12:00 PM EDT Office Visit Gastroenterology, [facility] 132 [facility] [place] [address] Imtiaz Kinsey MD [address] [place] [address] 09/21/2023 3:00 PM EDT Office Visit Gynecology/Obstetrics [facility] [address] [place] [address] Balbina Naik CRNP [address] [place] [address] 09/28/2023 1:30 PM EDT Office Visit Cardiology, [facility] 132 [facility] [place] [address] Allan Siddiqui PA-C [address] [place] [address] 11/27/2023 9:20 AM EDT Office Visit Family Practice [facility] 132 [facility] [place] [address] Foster Zuniga MD [address] [facility] [place] [address] 01/14/2024 1:30 PM EDT Nurse Only Rheumatology [place] [id number] [facility] [place] [address] Pf, Nurse Rheum [address] [place] [address] [place] [address] 06/23/2024 11:30 AM EST Imaging Radiology [facility] 1st [facility] 132 [facility] [place] [address] 07/09/2024 11:30 AM EDT Office Visit Urology, [facility] [address] [place] [address] Spencer Kumari MD 27 [facility] [address] [place] [address] Pending Results Name Type Priority Associated Diagnoses Date /Time MYCODE SUBSEQUENT ADULT Lab Routine [employer] Other*[id number] 08/23/2023 11:24 AM EDT CBC WITH WBC DIFFERENTIAL AND ANEMIA REFLEX WORKUP Lab Routine Paroxysmal atrial fibrillation (HCC) 08/23/2023 11:24 AM EDT FERRITIN Lab Routine Paroxysmal atrial fibrillation ([facility]) 08/23/2023 11:24 AM EDT MYCODE SST1 Lab Routine [employer] Other*[id number] 08/23/2023 11:24 AM EDT MYCODE SST2 Lab Routine [employer] Other*[id number] 08/23/2023 11:24 AM EDT ANEMIA CBC Lab Routine Paroxysmal atrial fibrillation ([facility]) 08/23/2023 11:24 AM EDT DIFFERENTIAL, AUTOMATED Lab Routine Paroxysmal atrial fibrillation ([facility]) 08/23/2023 11:24 AM EDT ANEMIA REFLEX CHEMISTRY HOLD Lab Routine Paroxysmal atrial fibrillation ([facility]) 08/23/2023 11:24 AM EDT Health Maintenance Due Date Last [...] D LEVEL ONCE IN A LIFETIME-USE SMARTSET# [id number] Completed 06/27/2023, 01/10/2021, 09/25/2008 GARDASIL-HPV IMMUNIZATION SERIES [...] this encounter Visit Diagnoses Diagnosis [employer] Other*[id number] Paroxysmal atrial fibrillation (HCC) Atrial fibrillation documented in this encounter Advance Directives Healthcare Agents on File Name Relationship Healthcare Agent Relationsia p Communication Cristobal Jackson Spouse Health Care Repr esentative (appointed verbally by patient or by statute hierarchy) Care Teams Battery Container Finishing Hand Relationship Specialty Start Date End Date Aayush Medrano MD [address] [address] PCP - General Family Medicine 08/23/23 documented as of this encounter
--- OUTSIDE RECORDS SUMMARY | 2024-01-16 10:19 | External Medical Summary ---
Author Name Unknown Address Unknown Organization K01:[facility] - [address] [place] [address] Laboratory Report Ordering Provider Test Date Status TJ CHONG 08/27/2023 10:50:48 Final Observation Date Value Abnormality Reference (Units) Status Pathologist review of results 08/27/2023 10:50:48 Rare atypical cells. Correlation with pending cytology ([id number]) recommended. Final Performing Location [facility] - [address] [place] [address]
--- OUTSIDE RECORDS SUMMARY | 2024-01-16 10:19 | External Medical Summary | Summary of Care ---
Author Name Unknown Organization [facility] Address [address] [place] [address] Phone [phone] Care Team Providers Care Sieve Maker Name Role Phone Aayush Medrano MD Primary Care Provider Reason for Visit * Reason Onset Date Comments Forms Request 08/03/2023 Medicare SMN Encounter Details Date Type Department Care Team (Late st Contact Info) Description 08/03/[address] [facility] [address] [place] [address] Foster Zuniga MD [address] [place] [address] Forms Request (Medicare SMN) Allergies Active Allergy Reactions Criticality Noted Date [...] directed via G tube via bolus syringe 87175 mL 11 07/11/2023 Active Apixaban 2.5 MG Oral Tablet (Eliquis) 1 Tablet. 0 07/23/2023 Active Carvedilol 6.25 MG Oral Tablet (Coreg) 1 Tablet. 0 07/27/2023 Activ e Hospital, Clinic, or Other Facility Administered Medication Ordered Dose Route Frequency Start Date End Date Status Denosumab (Prolia) subcut inj 60 mgIndications:Senile osteoporosis 60 mg SC [id number] 07/11/2023 07/05/2024 Active documented as of this [...] mRNA, LNP-s, No Pre serve, 2-Dose Series ([employer]) 03/16/2021,08/12/2020,07/22/2020 Covid-19, Mrna, Lnp-s, Pf, B ivalent, 30 Mcg, IM, 12 yrs and above ([employer]) 02/24/2022 Pneumococcal Conjugate Vacc, 13 Valent (Prevnar) [...] Encounter - Sallie Smith LPN - 08/23/2023 11:39 AM EDT Being addressed in another tele encounter from 08/20/23 * Telephone Encounter - Jeffy Park OSA - 08/20/2023 10:00 AM EDT Venus calling in regarding SMN. She stated it was for an order from Dr. Zuniga on 07/11/23. Please advise. * Telephone Encounter - Anabel Parra LPN - 08/06/2023 10:05 AM EDT Sent up to GI * Telephone Encounter - Luma Gonzalez OSA - 08/03/2023 8:46 AM EDT Kylah from Home [facility] called stating that she faxed over forms for a Medicare SMN for Dr. Zuniga to complete and send back. She was checking to see if we received them and if it was possible to getthem filled out and faxed back to her at [phone]. Please advise documented in this encounter Plan of Treatment Upcoming Encounters Date Type Department Care Team (Late st Contact Info) Description 08/24/2023 3:30 PM EDT Office Visit Gastroenterology, [facility] [address] [place] [address] Imtiaz Kinsey MD [address] [place] [address] 09/03/2023 12:00 PM EDT Office Visit Gastroenterology, [facility] [address] [place] [address] Imtiaz Kinsey MD [address] [place] [address] 09/21/2023 3:00 PM EDT Office Visit Gynecology/Obstetrics [facility] [address] [place] [address] Balbina Naik CRNP [address] [place] [address] 09/28/2023 1:30 PM EDT Office Visit Cardiology, [facility] 132 [facility] [place] [address] Allan Siddiqui PA-C 132 [facility] [place] [address] 11/27/2023 9:20 AM EDT Office Visit Family Practice [facility] 132 [facility] [place] [address] Foster Zuniga MD 132 [facility] [place] [address] 01/14/2024 1:30 PM EDT Nurse Only Rheumatology [place] [id number] [facility] [place] [address] Pf, Nurse Rheum [address] [place] [address] [place] [address] 06/23/2024 11:30 AM EST Imaging Radiology [facility] 1st [facility] 132 [facility] [place] [address] 07/09/2024 11:30 AM EDT Office Visit Urology, [facility] 132 [facility] [place] [address] Spencer Kumari MD 27 [facility] [address] [place] [address] Health Maintenance Due Date Last Done Comments [...] D LEVEL ONCE IN A LIFETIME-USE SMARTSET# [id number] Completed 06/27/2023, 01/10/2021, 09/25/2008 GARDASIL-HPV IMMUNIZATION SERIES [...] patient or by statute hierarchy) Care Teams Sieve Maker Relationship Specialty Start Date End Date Aayush Medrano MD [address] [place] [address] PCP - General Family Medicine 08/23/23 documented as of this encounter
--- OUTSIDE RECORDS SUMMARY | 2024-01-16 10:19 | External Medical Summary | Summary of Care ---
Author Name Unknown Organization [facility] Address [address] [place] [address] Phone [phone] Care Team Providers Care Corner Block Cutter Name Role Phone Aayush Medrano MD Primary Care Provider Reason for Visit * Reason Onset Date Comments Test Results 08/23/2023 Unexpected or In determinate Result Encounter Details Date Type Department Care Team (Late st Contact Info) Description 08/23/2023 Telephone Laboratory, [place] [address] [place] [address] Aayush Medrano MD [address] [facility] [address] Test Results (Unexpected or Indeterminate ... [...] directed via G tube via bolus syringe 67764 mL 11 07/11/2023 Active Apixaban 2.5 MG Oral Tablet (Eliquis) 1 Tablet. 0 07/23/2023 Active Carvedilol 6.25 MG Oral Tablet (Coreg) 1 Tablet. 0 07/27/2023 Activ e Hospital, Clinic, or Other Facility Administered Medication Ordered Dose Route Frequency Start Date End Date Status Denosumab (Prolia) subcut inj 60 mgIndications:Senile osteoporosis 60 mg SC [id number] 07/11/2023 07/05/2024 Active documented as of this [...] mRNA, LNP-s, No Pre serve, 2-Dose Series ([employer]) 03/16/2021,08/12/2020,07/22/2020 Covid-19, Mrna, Lnp-s, Pf, B ivalent, 30 Mcg, IM, 12 yrs and above ([employer]) 02/24/2022 Pneumococcal Conjugate Vacc, 13 Valent (Prevnar) [...] unexpected or indeterminate finding on Sharmin Jackson ([id number]) and asks that you review the following [...] you, Shelli Solis, ARI Client Service Rep [facility] documented in this encounter Plan of Treatment Upcoming Encounters Date Type Department Care Team (Late st Contact Info) Description 08/24/2023 3:30 PM EDT Office Visit Gastroenterology, [facility] [address] [place] [address] Imtiaz Kinsey MD [address] [place] [address] 09/03/2023 12:00 PM EDT Office Visit Gastroenterology, [facility] [address] [place] [address] Imtiaz Kinsey MD [address] [place] [address] 09/21/2023 3:00 PM EDT Office Visit Gynecology/Obstetrics [facility] [address] [place] [address] Balbina Naik CRNP [address] [place] [address] 09/28/2023 1:30 PM EDT Office Visit Cardiology, [facility] [address] [place] [address] Allan Siddiqui, PARachellC [address] [place] [address] 11/27/2023 9:20 AM EDT Office Visit Family Practice [facility] 132 [facility] [place] [address] Foster Zuniga MD 132 [facility] [place] [address] 01/14/2024 1:30 PM EDT Nurse Only Rheumatology [place] [address] [facility] [place] [address] Pf, Nurse Rheum [address] [place] [address] [place] [address] 06/23/2024 11:30 AM EST Imaging Radiology [facility]st [facility] 132 [facility] [place] [address] 07/09/2024 11:30 AM EDT Office Visit Urology, [facility] 132 [facility] [place] [address] Spencer Kumari MD 27 [facility] [address] [place] [address] Health Maintenance Due Date Last Done Comments [...] D LEVEL ONCE IN A LIFETIME-USE SMARTSET# [id number] Completed 06/27/2023, 01/10/2021, 09/25/2008 GARDASIL-HPV IMMUNIZATION SERIES [...] patient or by statute hierarchy) Care Teams Corner Block Cutter Relationship Specialty Start Date End Date Aayush Medrano MD [address] [place] [address] PCP - General Family Medicine 08/23/23 documented as of this encounter
--- OUTSIDE RECORDS SUMMARY | 2024-01-16 10:19 | External Medical Summary | Summary of Care ---
Author Name Unknown Organization [facility] Address [address] [place] [address] Phone [phone] Care Team Providers Care Soft Metals Hand Engraver Name Role Phone Aayush Medrano MD Primary Care Provider Reason for Visit * Reason Onset Date Comments Med Request 07/10/2023 FYI 07/10/2023 Fax 07/10/2023 Encounter Details Date Type Department Care Team (Late st Contact Info) Description 07/10/2023 Telephone Family Practice [facility] 132 [facility] [place] [address] Foster Zuniga MD 132 [facility] [place] [address] Med Request; I; Fax Allergies Active Allergy [...] directed via G tube via bolus syringe 53335 mL 11 07/11/2023 Active [employer] HN Oral LiquidIndications:Se yancy protein-calorie malnutrition (HCC) Administer 6 cans daily as directed via G tube via bolus syringe 13177 mL 11 08/17/2022 Discontinue d(Refill) Hospital, Clinic, or Other Facility Administered Medication Ordered Dose Route Frequency Start Date End Date Status Denosumab (Prolia) subcut inj 60 mgIndications:Senile osteoporosis 60 mg SC [id number] 07/11/2023 07/05/2024 Active documented as of this [...] mRNA, LNP-s, No Pre serve, 2-Dose Series (Ox[employer]ade) 03/16/2021,08/12/2020,07/22/2020 Covid-19, Mrna, Lnp-s, Pf, B ivalent, 30 Mcg, IM, 12 yrs and above ([employer]ynade) 02/24/2022 Pneumococcal Conjugate Vacc, 13 Valent (Prevnar) [...] 08/23/2023 11:38 AM EDT Called Nurys with [facility] [phone] Regarding form. Have not received, asked to refax to our office [phone] attn Sallie Osorio on form. * Telephone Encounter - Brinda Amaya OSA - 08/20/2023 12:05 PM EDT Nurys with [facility] re-faxing order for provider to sign letter of medicalnecessity. Insurance won't cover cost if provider doesn't sign form. * Telephone Encounter - Foster Zuniga MD - 07/11/2023 8:14 AM EDT Signed. documented in this encounter Plan of Treatment Upcoming Encounters Date Type Department Care Team (Late st Contact Info) Description 08/24/2023 3:30 PM EDT Office Visit Gastroenterology, [facility] [address] [place] [address] Imtiaz Kinsey MD [address] [place] [address] 09/03/2023 12:00 PM EDT Office Visit Gastroenterology, [facility] [address] [place] [address] Imtiaz Kinsey MD [address] [place] [address] 09/21/2023 3:00 PM EDT Office Visit Gynecology/Obstetrics [facility] [address] [place] [address] Balbina Naik CRNP [address] [place] [address] 09/28/2023 1:30 PM EDT Office Visit Cardiology, [facility] [address] [place] [address] Allan Siddiqui PA-C [address] [place] [address] 11/27/2023 9:20 AM EDT Office Visit Family Practice [facility] [address] [place] [address] Foster Zuniga MD [address] [place] [address] 01/14/2024 1:30 PM EDT Nurse Only Rheumatology [place] [address] [facility] [place] [address] Pf, Nurse Rheum [facility] [place] [address] 06/23/2024 11:30 AM EST Imaging [facility] 132 [facility] [place] [address] 07/09/2024 11:30 AM EDT Office Visit Urology, [facility] 132 [facility] [place] [address] Spencer Kumari MD 27 [facility] [address] [place] [address] Health Maintenance Due Date Last Done Comments [...] D LEVEL ONCE IN A LIFETIME-USE SMARTSET# [id number] Completed 06/27/2023, 01/10/2021, 09/25/2008 GARDASIL-HPV IMMUNIZATION SERIES [...] patient or by statute hierarchy) Care Teams Soft Metals Hand Engraver Relationship Specialty Start Date End Date Aayush Medrano MD [address] [place] [address] PCP - General Family Medicine 08/23/23 documented as of this encounter
--- OUTSIDE RECORDS SUMMARY | 2024-01-16 10:19 | External Medical Summary ---
Author Name Unknown Address Unknown Organization K01:LAB[facility]ATORY [facility] [place] - [address] [place] [address] Laboratory Report Ordering Provider Test Date Status TJ CHONG 08/27/2023 10:50:48 Final Observation Date Value Abnormality Reference (Units ) Status Bacteria identified in Specimen by Culture 08/27/2023 10:50:48 No fungus isolated Final Fungal Smear 08/27/2023 10:50:48 No yeast or hyphae seen. Final Test: Culture Fungus - Other pleural fluid
Specimen Source: Pleural fluid, Left
Specimen Type: Body Fluid
Specimen Date: 08/27/2023 1050
Result Date: 09/17/2023 1034
Result Status: Final result
Resulting Lab: [facility] [place]
[address]
[place] [address]

CULTURE

No fungus isolated

STAIN

No yeast or hyphae seen.

null Performing Location [facility] [place] [facility] [address] [facility] [address]
--- OUTSIDE RECORDS SUMMARY | 2024-01-16 10:20 | External Medical Summary | Summary of Care ---
Author Name Unknown Organization [facility] Address [address] [place] [address] Phone [phone] Care Team Providers Care Hang Gliding Instructor Name Role Phone Foster Zuniga MD Primary Care Provider +1 [phone] Encounter Details Date Type Department Care Team (Late st Contact Info) Description 08/17/2023 11:45 AM EDT Scheduled Telephone Care Coordination and Integration [address] [place], [place] [id number] Lalitha Burnett [facility] Handle And Vent Machine Operator [address] [place] [address] Allergies Active Allergy Reactions Criticality Noted Date Comments Penicillins 10/25/1999 rash and given shot as a child, has tolerated augmentin ok as well as cephalosporin documented as of this encounter (statuses as of 08/17/2023) Medications Medication Sig Dispensed Refills Start Date [...] directed via G tube via bolus syringe 53891 mL 11 07/11/2023 Active Apixaban 2.5 MG Oral Tablet (Eliquis) 1 Tablet. 0 07/23/2023 Active Carvedilol 6.25 MG Oral Tablet (Coreg) 1 Tablet. 0 07/27/2023 Activ e Hospital, Clinic, or Other Facility Administered Medication Ordered Dose Route Frequency Start Date End Date Status Denosumab (Prolia) subcut inj 60 mgIndications:Senile osteoporosis 60 mg SC [id number] 07/11/2023 07/05/2024 Active documented as of this encounter (statuses as of 08/17/2023) Active Problems Problem Noted Date Diagnosed Date [...] as of this encounter (statuses as of 08/17/2023) Resolved Problems Problem Noted Date Diagnosed Date [...] as of this encounter (statuses as of 08/17/2023) Immunizations Name Administration Dates Next Due COVID-19 mRNA, LNP-s, No Pre serve, 2-Dose Series ([employer]) 03/16/2021,08/12/2020,07/22/2020 Covid-19, Mrna, Lnp-s, Pf, B ivalent, [...] Progress Notes * Lalitha Burnett [facility] Handle And Vent Machine Operator - 08/17/2023 12:19 PM EDT Telemedicine visit: No [facility] Handle And Vent Machine Operator (BRITTNEY) documentation: [facility] f/u call wk 2 per MARIELLA Awan [facility], left vm- to return call to documented in this encounter Plan of Treatment Upcoming Encounters Date Type Department Care Team (Late st Contact Info) Description 08/22/2023 3:30 PM EDT Office Visit Gastroenterology, [facility] [address] [place] [address] Imtiaz Kinsey MD [address] [place] [address] 09/03/2023 12:00 PM EDT Office Visit Gastroenterology, [facility] [address] [place] [address] Imtiaz Kinsey MD [address] [place] [address] 09/21/2023 3:00 PM EDT Office Visit Gynecology/Obstetrics [facility] [address] [place] [address] Balbina Naik CRNP [address] [place] [address] 09/28/2023 1:30 PM EDT Office Visit Cardiology, [facility] [address] [place] [address] Allan Siddiqui, PARachellC [address] [place] [address] 11/27/2023 9:20 AM EDT Office Visit Family Practice [facility] [address] [place] [address] Foster Zuniga MD [address] [place] [address] 01/14/2024 1:30 PM EDT Nurse Only Rheumatology [place] [address] [facility] [place] [address] Pf, Nurse Rheum [facility] [place] [address] 06/23/2024 11:30 AM EST Imaging Radiology [facility] 1st Floor, [place] [address] [place] [address] 07/09/2024 11:30 AM EDT Office Visit Urology, [facility] [address] [place] [address] Spencer Kumari MD 27 [facility] [place] [address] [place] [address] Health Maintenance [...] D LEVEL ONCE IN A LIFETIME-USE SMARTSET# [id number] Completed 06/27/2023, 01/10/2021, 09/25/2008 GARDASIL-HPV IMMUNIZATION SERIES [...] patient or by statute hierarchy) Care Teams Hang Gliding Instructor Relationship Specialty Start Date End Date Foster Zuniga MD [address] [place] [address] PCP - General Family Medicine 04/02/23 documented as of this encounter
--- OUTSIDE RECORDS SUMMARY | 2024-01-16 10:20 | External Medical Summary | Summary of Care ---
Author Name Unknown Organization [facility] Address [address] [place] [address] Phone [phone] Care Team Providers Care Rigger Apprentice Name Role Phone Foster Zuniga MD Primary Care Provider [phone] [phone] Reason for Visit * Reason Onset Date Comments Advice 08/14/2023 Encounter Details Date Type Department Care Team (Late st Contact Info) Description 08/14/2023 Telephone Gastroenterology, [facility] [address] [place] [address] Imtiaz Kinsey MD [address] [place] [address] Advice Allergies Active Allergy Reactions Criticality Noted Date Comments Penicillins 10/25/1999 rash and given shot as a child, has tolerated augmentin ok as well as cephalosporin documented as of this encounter (statuses as of 08/15/2023) Medications Medication Sig Dispensed Refills Start Date [...] directed via G tube via bolus syringe 38944 mL 11 07/11/2023 Active Apixaban 2.5 MG Oral Tablet (Eliquis) 1 Tablet. 0 07/23/2023 Active Carvedilol 6.25 MG Oral Tablet (Coreg) 1 Tablet. 0 07/27/2023 Activ e Hospital, Clinic, or Other Facility Administered Medication Ordered Dose Route Frequency Start Date End Date Status Denosumab (Prolia) subcut inj 60 mgIndications:Senile osteoporosis 60 mg SC [id number] 07/11/2023 07/05/2024 Active documented as of this encounter (statuses as of 08/15/2023) Active Problems Problem Noted Date Diagnosed Date [...] as of this encounter (statuses as of 08/15/2023) Resolved Problems Problem Noted Date Diagnosed Date [...] as of this encounter (statuses as of 08/15/2023) Immunizations Name Administration Dates Next Due COVID-19 mRNA, LNP-s, No Pre serve, 2-Dose Series ([employer]) 03/16/2021,08/12/2020,07/22/2020 Covid-19, Mrna, Lnp-s, Pf, B ivalent, [...] encounter Miscellaneous Notes * Telephone Encounter - Lisa Morales OSA [...] Lmm for pt to either call or [facility] for scheduling ARI Martinez 08/14/2023 2:35 PM * Telephone Encounter - Mayra Orellana OSA - 08/14/2023 2:[address] Kinsey: Sure, I can do this in [facility] tomorrow if pt willing to travel. If [...] 09/03/2023 12:00 PM EDT Office Visit Gastroenterology, [facility] [address] [place] [address] Imtiaz Kinsey MD [address] [place] [address] 09/21/2023 3:00 PM EDT Office Visit Gynecology/Obstetrics [facility] [address] [place] [address] Balbina Naik CRNP 132 [facility] [place] [address] 09/28/2023 1:30 PM EDT Office Visit Cardiology, [facility] [place] [address] Allan Siddiqui PA-C 132 [facility] [place] [address] 11/27/2023 9:20 AM EDT Office Visit Family Practice [facility] 132 [facility] [place] [address] Foster Zuniga MD 132 [facility] [place] [address] 01/14/2024 1:30 PM EDT Nurse Only Rheumatology [address] [place] [address] Pf, Nurse Rheum [address] [place], [place] [address] [address] 06/23/2024 11:30 AM EST Imaging Radiology [facility] 1st [facility] [address] [place] [address] 07/09/2024 11:30 AM EDT Office Visit Urology, [facility] 132 [facility] [place] [address] Spencer Kumari MD 27 [facility] [address] [place] [address] Health Maintenance Due Date Last Done Comments [...] D LEVEL ONCE IN A LIFETIME-USE SMARTSET# [id number] Completed 06/27/2023, 01/10/2021, 09/25/2008 GARDASIL-HPV IMMUNIZATION SERIES [...] patient or by statute hierarchy) Care Teams Rigger Apprentice Relationship Specialty Start Date End Date Foster Zuniga MD [address] [place] [address] PCP - General Family Medicine 04/02/23 documented as of this encounter
--- OUTSIDE RECORDS SUMMARY | 2024-01-16 10:20 | External Medical Summary | Summary of Care ---
Author Name Unknown Organization [facility] Address [address] [place] [address] Phone [phone] Care Team Providers Care Rehabilitation Consultant Name Role Phone Foster Zuniga MD Primary Care Provider [phone] [phone] Reason for Visit * Reason Onset Date Comments Forms Request 08/03/2023 Medicare SMN Encounter Details Date Type Department Care Team (Late st Contact Info) Description 08/03/2023 Telephone Family Practice [facility] [place] [address] Foster Zuniga MD [address] [place] [address] Forms Request (Medicare SMN) Allergies Active Allergy Reactions Criticality Noted Date Comments Penicillins 10/25/1999 rash and given shot as a child, has tolerated augmentin ok as well as cephalosporin documented as of this encounter (statuses as of 08/20/2023) Medications Medication Sig Dispensed Refills Start Date [...] directed via G tube via bolus syringe 22848 mL 11 07/11/2023 Active Apixaban 2.5 MG Oral Tablet (Eliquis) 1 Tablet. 0 07/23/2023 Active Carvedilol 6.25 MG Oral Tablet (Coreg) 1 Tablet. 0 07/27/2023 Activ e Hospital, Clinic, or Other Facility Administered Medication Ordered Dose Route Frequency Start Date End Date Status Denosumab (Prolia) subcut inj 60 mgIndications:Senile osteoporosis 60 mg SC [id number] 07/11/2023 07/05/2024 Active documented as of this encounter (statuses as of 08/20/2023) Active Problems Problem Noted Date Diagnosed Date [...] as of this encounter (statuses as of 08/20/2023) Resolved Problems Problem Noted Date Diagnosed Date [...] as of this encounter (statuses as of 08/20/2023) Immunizations Name Administration Dates Next Due COVID-19 mRNA, LNP-s, No Pre serve, 2-Dose Series ([employer]) 03/16/2021,08/12/2020,07/22/2020 Covid-19, Mrna, Lnp-s, Pf, B ivalent, 30 Mcg, IM, 12 yrs and above ([employer]) 02/24/2022 Pneumococcal Conjugate Vacc, 13 Valent [...] encounter Miscellaneous Notes * Telephone Encounter - Jeffy Park OSA [...] out and faxed back to her at [phone]. Please advise documented in this encounter Plan of Treatment Upcoming Encounters Date Type Department Care Team (Late st Contact Info) Description 08/22/2023 3:30 PM EDT Office Visit Gastroenterology, [facility] [address] [place] [address] Imtiaz Kinsey MD [address] [place] [address] 09/03/2023 12:00 PM EDT Office Visit Gastroenterology, [facility] [address] [place] [address] Imtiaz Kinsey MD [address] [place] [address] 09/21/2023 3:00 PM EDT Office Visit Gynecology/Obstetrics [facility] [address] [place] [address] Balbina Naik CRNP [address] [place] [address] 09/28/2023 1:30 PM EDT Office Visit Cardiology, [facility] [address] [place] [address] Allan Siddiqui PA-C [address] [place] [address] 11/27/2023 9:20 AM EDT Office Visit Family Practice [facility] 132 [facility] [place] [address] Foster Zuniga MD [address] [place] [address] 01/14/2024 1:30 PM EDT Nurse Only Rheumatology [address] [place] [address] Pf, Nurse Rheum [address] [place] [address] [place] [address] 06/23/2024 11:30 AM EST Imaging Radiology [facility] [address] [facility] 132 [facility] [place] [address] 07/09/2024 11:30 AM EDT Office Visit Urology, [facility] 132 [facility] [place] [address] Spencer Kumari MD 27 [facility] [address] [place] [id number] Health Maintenance Due Date Last Done Comments [...] D LEVEL ONCE IN A LIFETIME-USE SMARTSET# [id number] Completed 06/27/2023, 01/10/2021, 09/25/2008 GARDASIL-HPV IMMUNIZATION SERIES [...] patient or by statute hierarchy) Care Teams Rehabilitation Consultant Relationship Specialty Start Date End Date Foster Zuinga MD [address] [place] [address] PCP - General Family Medicine 04/02/23 documented as of this encounter
--- OUTSIDE RECORDS SUMMARY | 2024-01-16 10:20 | External Medical Summary | Summary of Care ---
Author Name Unknown Organization [facility] Address [address] [place] [address] Phone [phone] Care Team Providers Care Customer Care Consultant Name Role Phone Foster Zuniga MD Primary Care Provider [phone] [phone] Reason for Visit * Reason Onset Date Comments Med Request 07/10/2023 FYI 07/10/2023 Fax 07/10/2023 Encounter Details Date Type Department Care Team (Late st Contact Info) Description 07/10/2023 Telephone Family Practice [facility] 132 [facility] [place] [address] Foster Zuniga MD 132 [facility] [place] [address] Med Request; ; Fax Allergies Active Allergy [...] directed via G tube via bolus syringe 49565 mL 11 07/11/2023 Active [employer] HN Oral LiquidIndications:Se yancy protein-calorie malnutrition (HCC) Administer 6 cans daily as directed via G tube via bolus syringe 76166 mL 11 08/17/2022 Discontinue d(Refill) Hospital, Clinic, or Other Facility Administered Medication Ordered Dose Route Frequency Start Date End Date Status Denosumab (Prolia) subcut inj 60 mgIndications:Senile osteoporosis 60 mg SC [id number] 07/11/2023 07/05/2024 Active documented as of this [...] mRNA, LNP-s, No Pre serve, 2-Dose Series ([employer]) 03/16/2021,08/12/2020,07/22/2020 Covid-19, Mrna, Lnp-s, Pf, B ivalent, 30 Mcg, IM, 12 yrs and above ([employer]) 02/24/2022 Pneumococcal Conjugate Vacc, 13 Valent (Prevnar) [...] encounter Miscellaneous Notes * Telephone Encounter - Brinda Amaya OSA - 08/20/2023 12:05 PM EDT Nurys with [facility] re-faxing order for provider to sign letter of medicalnecessity. Insurance won't cover cost if provider doesn't sign form. * Telephone Encounter - Foster Zuniga MD - 07/11/2023 8:14 AM EDT Signed. documented in this encounter Plan of Treatment Upcoming Encounters Date Type Department Care Team (Late st Contact Info) Description 08/22/2023 3:30 PM EDT Office Visit Gastroenterology, [facility] [address] [place] [address] Itmiaz Kinsey MD [address] [place] [address] 09/03/2023 12:00 PM EDT Office Visit Gastroenterology, [facility] [address] [place] [address] Imtiaz Kinsey MD [address] [place] [address] 09/21/2023 3:00 PM EDT Office Visit Gynecology/[facility] [address] [place] [address] Balbina Naik CRNP [address] [place] [address] 09/28/2023 1:30 PM EDT Office Visit Cardiology, [facility] [address] [place] [address] Allan Siddiqui PA-C [address] [place] [address] 11/27/2023 9:20 AM EDT Office Visit Family Practice [facility] [address] [place] [address] Foster Zuniga MD [address] [facility] [place] [address] 01/14/2024 1:30 PM EDT Nurse Only Rheumatology [facility] [address] [facility] [address] Pf, Nurse Rheum [address] [facility] [address] 06/23/2024 11:30 AM EST Imaging Radiology [address] 132 [facility] [place] [address] 07/09/2024 11:30 AM EDT Office Visit Urology, [facility] 132 [facility] [place] [address] Spencer Kumari MD 27 [facility] [address] [place] [address] Health Maintenance Due Date Last Done Comments [...] D LEVEL ONCE IN A LIFETIME-USE SMARTSET# [id number] Completed 06/27/2023, 01/10/2021, 09/25/2008 GARDASIL-HPV IMMUNIZATION SERIES [...] patient or by statute hierarchy) Care Teams Customer Care Consultant Relationship Specialty Start Date End Date Foster Zuniga MD [address] [place] [address] PCP - General Family Medicine 04/02/23 documented as of this encounter
--- OUTSIDE RECORDS SUMMARY | 2024-01-16 10:20 | External Medical Summary ---
Author Name Unknown Address Unknown Organization K01:LABORATORY [facility] [place] - [address] [place] [address] Laboratory Report Ordering Provider Test Date Status MGIUELANGEL HOLLIS 08/23/2023 11:24:42 Final Observation Date Value Abnormality Reference (Units ) Status MYCODE SPECIMEN-SST 08/23/2023 11:24:42 Freezing of extracted DNA, whole blood and/or serum. Final Performing Location LABORATORY [facility] - [address] [place] [address]
--- OUTSIDE RECORDS SUMMARY | 2024-01-16 10:20 | External Medical Summary | Summary of Care ---
Author Name Unknown Organization [facility] Address [address] [place] [address] Phone [phone] Care Team Providers Care Marketing Analytics Analyst Name Role Phone Foster Zuniga MD Primary Care Provider [phone] [phone] Encounter Details Date Type Department Care Team (Late st Contact Info) Description 08/22/2023 3:00 PM EDT Scheduled Telephone Care Coordination and Integration [address] [place], [place] [id number] Lalitha Burnett [facility] Drying Oven Attendant [address] [place] [address] Allergies Active Allergy Reactions Criticality Noted Date Comments Penicillins 10/25/1999 rash and given shot as a child, has tolerated augmentin ok as well as cephalosporin documented as of this encounter (statuses as of 08/22/2023) Medications Medication Sig Dispensed Refills Start Date [...] directed via G tube via bolus syringe 74561 mL 11 07/11/2023 Active Apixaban 2.5 MG Oral Tablet (Eliquis) 1 Tablet. 0 07/23/2023 Active Carvedilol 6.25 MG Oral Tablet (Coreg) 1 Tablet. 0 07/27/2023 Activ e Hospital, Clinic, or Other Facility Administered Medication Ordered Dose Route Frequency Start Date End Date Status Denosumab (Prolia) subcut inj 60 mgIndications:Senile osteoporosis 60 mg SC [id number] 07/11/2023 07/05/2024 Active documented as of this encounter (statuses as of 08/22/2023) Active Problems Problem Noted Date Diagnosed Date [...] as of this encounter (statuses as of 08/22/2023) Resolved Problems Problem Noted Date Diagnosed Date [...] as of this encounter (statuses as of 08/22/2023) Immunizations Name Administration Dates Next Due COVID-19 mRNA, LNP-s, No Pre serve, 2-Dose Series ([employer]) 03/16/2021,08/12/2020,07/22/2020 Covid-19, Mrna, Lnp-s, Pf, B ivalent, [...] Progress Notes * Lalitha Burnett [facility] Drying Oven Attendant - 08/22/2023 3:06 PM EDT Telemedicine visit: No [facility] Drying Oven Attendant (BRITTNEY) documentation: [facility] week 3 f/u call per MARIELLA Awan [facility], left documented in this encounter Plan of Treatment Upcoming Encounters Date Type Department Care Team (Late st Contact Info) Description 08/23/2023 9:00 AM EDT Office Visit Family [facility] [address] [place] [address] Aayush Medrano MD [address] [place] [address] 08/24/2023 3:30 PM EDT Office Visit Gastroenterology, [facility] [address] [place] [address] Imtiaz Kinsey MD [address] [place] [address] 09/03/2023 12:00 PM EDT Office Visit Gastroenterology, [facility] [address] [place] [address] Imtiaz Kinsey MD [address] [place] [address] 09/21/2023 3:00 PM EDT Office Visit Gynecology/Obstetrics [facility] [address] [place] [address] Balbina Naik CRNP [address] [place] [address] 09/28/2023 1:30 PM EDT Office Visit Cardiology, [facility] [address] [place] [address] Allan Siddiqui PA-C [address] [place] [address] 11/27/2023 9:20 AM EDT Office Visit [facility] [address] [place] [address] Foster Zuniga MD [address] [place] [address] 01/14/2024 1:30 PM EDT Nurse Only Rheumatology [place] [address] [facility] [place], [place] [address] Pf, Nurse Rheum [facility] [place] [address] 06/23/2024 11:30 AM EST Imaging Radiology [facility] 1st Floor, [place] 132 [facility] [place] [address] 07/09/2024 11:30 AM EDT Office Visit Urology, [facility] 132 [facility] [place] [address] Spencer Kumari MD 27 [facility] [place] [address] [place] [address] Health Maintenance Due Date Last Done Comments [...] D LEVEL ONCE IN A LIFETIME-USE SMARTSET# [id number] Completed 06/27/2023, 01/10/2021, 09/25/2008 GARDASIL-HPV IMMUNIZATION SERIES [...] patient or by statute hierarchy) Care Teams Marketing Analytics Analyst Relationship Specialty Start Date End Date Foster Zuniga MD [address] [place] [address] PCP - General Family Medicine 04/02/23 documented as of this encounter
--- OUTSIDE RECORDS SUMMARY | 2024-01-16 10:20 | External Medical Summary ---
Author Name Unknown Address Unknown Organization K01:LABORATORY [facility] [place] [address] [place] [address] Laboratory Report Ordering Provider Test Date Status MIGUELANGEL HOLLIS 08/23/2023 11:24:42 Final Observation Date Value Abnormality Reference (Units ) Status MYCODE SPECIMEN-SST 08/23/2023 11:24:42 Freezing of extracted DNA, whole blood and/or serum. Final Performing Location LABORATORY [facility] - [address] [place] [address]
--- OUTSIDE RECORDS SUMMARY | 2024-01-16 10:20 | External Medical Summary | Summary of Care ---
Author Name Unknown Organization [facility] Address [address] [place] [address] Phone [phone] Care Team Providers Care Automotive Fuel Injection Servicer Name Role Phone Foster Zuniga MD Primary Care Provider [phone] Reason for Visit * Reason Onset Date Comments Advice 08/14/2023 Encounter Details Date Type Department Care Team (Late st Contact Info) Description 08/14/2023 Telephone Gastroenterology, [facility] [address] [place] [address] Imtiaz Kinsey MD [address] [place] [address] Advice Allergies Active Allergy Reactions Criticality Noted Date Comments Penicillins 10/25/1999 rash and given shot as a child, has tolerated augmentin ok as well as cephalosporin documented as of this encounter (statuses as of 08/14/2023) Medications Medication Sig Dispensed Refills Start Date [...] directed via G tube via bolus syringe 02665 mL 11 07/11/2023 Active Apixaban 2.5 MG Oral Tablet (Eliquis) 1 Tablet. 0 07/23/2023 Active Carvedilol 6.25 MG Oral Tablet (Coreg) 1 Tablet. 0 07/27/2023 Activ e Hospital, Clinic, or Other Facility Administered Medication Ordered Dose Route Frequency Start Date End Date Status Denosumab (Prolia) subcut inj 60 mgIndications:Senile osteoporosis 60 mg SC [id number] 07/11/2023 07/05/2024 Active documented as of this encounter (statuses as of 08/14/2023) Active Problems Problem Noted Date Diagnosed Date [...] as of this encounter (statuses as of 08/14/2023) Resolved Problems Problem Noted Date Diagnosed Date [...] as of this encounter (statuses as of 08/14/2023) Immunizations Name Administration Dates Next Due COVID-19 mRNA, LNP-s, No Pre serve, 2-Dose Series ([employer]) 03/16/2021,08/12/2020,07/22/2020 Covid-19, Mrna, Lnp-s, Pf, B ivalent, [...] Lmm for pt to either call or [place] for scheduling ARI Martinez 08/14/2023 2:35 PM * Telephone Encounter - Mayra Orellana OSA - 08/14/2023 2:[address] Kinsey: Sure, I can do this in [facility] tomorrow if pt willing to travel. If [...] Office Visit Gastroenterology, [facility] [address] [place] [address] Imtiaz Kinsey MD [address] [place] [address] 09/21/2023 3:00 PM EDT Office Visit Gynecology/Obstetrics [facility] [address] [place] [address] Balbina Naik CRNP 132 [facility] [place] [address] 09/28/2023 1:30 PM EDT Office Visit Cardiology, [facility] [place] [address] Allan Siddiqui PA-C 132 [facility] [place] [address] 11/27/2023 9:20 AM EDT Office Visit Family Practice [facility] 132 [facility] [place] [address] Foster Zuniga MD 132 [facility] [place] [address] 01/14/2024 1:30 PM EDT Nurse Only Rheumatology [address] [place] [address] Pf, Nurse Rheum [address] [place], [place] [address] [address] 06/23/2024 11:30 AM EST Imaging Radiology [facility] 1st [facility] [address] [place] [address] 07/09/2024 11:30 AM EDT Office Visit Urology, [facility] 132 [facility] [place] [address] Spencer Kumari MD 27 [facility] [address] [place] [address] Health Maintenance Due Date Last Done Comments [...] D LEVEL ONCE IN A LIFETIME-USE SMARTSET# [id number] Completed 06/27/2023, 01/10/2021, 09/25/2008 GARDASIL-HPV IMMUNIZATION SERIES [...] patient or by statute hierarchy) Care Teams Automotive Fuel Injection Servicer Relationship Specialty Start Date End Date Foster Zuniga MD 132 [place] [address] PCP - General Family Medicine 04/02/23 documented as of this encounter
--- OUTSIDE RECORDS SUMMARY | 2024-01-16 10:20 | External Medical Summary | Summary of Care ---
Author Name Unknown Organization [facility] Address [address] [place] [address] Phone [phone] Care Team Providers Care Environmental Engineering Professor Name Role Phone Foster Zuniga MD Primary Care Provider [phone] Reason for Visit * Reason Onset Date Comments Test Results 08/15/2023 Encounter Details Date Type Department Care Team (Late st Contact Info) Description 08/15/2023 Telephone Family Practice [facility] [address] [place] [address] Foster Zuniga MD [address] [place] [address] Test Results Allergies Active Allergy Reactions [...] directed via G tube via bolus syringe 02108 mL 11 07/11/2023 Active Apixaban 2.5 MG Oral Tablet (Eliquis) 1 Tablet. 0 07/23/2023 Active Carvedilol 6.25 MG Oral Tablet (Coreg) 1 Tablet. 0 07/27/2023 Activ e Hospital, Clinic, or Other Facility Administered Medication Ordered Dose Route Frequency Start Date End Date Status Denosumab (Prolia) subcut inj 60 mgIndications:Senile osteoporosis 60 mg SC [id number] 07/11/2023 07/05/2024 Active documented as of this [...] mRNA, LNP-s, No Pre serve, 2-Dose Series ([employer]) 03/16/2021,08/12/2020,07/22/2020 Covid-19, Mrna, Lnp-s, Pf, B ivalent, [...] Telephone Encounter - Sherri Umanzor RN - 08/15/2023 12:59 PM EDT Spoke with patients spouse, Cristobal. He wanted to know what could be prescribed to "give her energy",explained that based on labs being normal, there is no indication for prescription. She is breathing okay, no cough or wheeze, pulse ox 97%. Reports no concerns with bowel or bladder. Advised if she becomes lethargic seek emergent care or call CM if worsening concerns. * Telephone Encounter - Foster Zuniga MD - 08/15/2023 11:47 AM EDT Labs look great. ER for emergencies. * Telephone Encounter - Tiara Cervantes LPN - 08/15/2023 11:26 AM EDT calling in about bw results. Pt has no energy, napping off/on, recently admitted. Has not gotten back to normal since last hospital stay. Labs pretty normal and BUN better than it was in May. is just very concerned that she is not as she should be. Wants a call BE[place]. documented in this encounter Plan of Treatment Upcoming Encounters Date Type Department Care Team (Late st Contact Info) Description 09/03/2023 12:00 PM EDT Office Visit Gastroenterology, [facility] [address] [place] [address] Imtiaz Kinsey MD [address] [place] [address] 09/21/2023 3:00 PM EDT Office Visit Gynecology/Obstetrics [facility] [address] [place] [address] Balbina Naik CRNP [address] [place] [address] 09/28/2023 1:30 PM EDT Office Visit Cardiology, [facility] [address] [place] [address] Allan Siddiqui PA-C [address] [place] [address] 11/27/2023 9:20 AM EDT Office Visit Family Practice [facility] 132 [facility] [place] [address] Foster Zuniga MD 132 [facility] [place] [address] 01/14/2024 1:30 PM EDT Nurse Only Rheumatology [address] [place] [address] Pf, Nurse Rheum [address] [place] [address] [place] [address] 06/23/2024 11:30 AM EST Imaging Radiology [facility] 1st [facility] 132 [facility] [place] [address] 07/09/2024 11:30 AM EDT Office Visit Urology, [facility] 132 [facility] [place] [address] Spencer Kumari MD [address] [address] [place] [address] Health Maintenance Due Date Last Done Comments [...] D LEVEL ONCE IN A LIFETIME-USE SMARTSET# [id number] Completed 06/27/2023, 01/10/2021, 09/25/2008 GARDASIL-HPV IMMUNIZATION SERIES [...] patient or by statute hierarchy) Care Teams Environmental Engineering Professor Relationship Specialty Start Date End Date Foster Zuniga MD 132 [place] [address] PCP - General Family Medicine 04/02/23 documented as of this encounter
--- OUTSIDE RECORDS SUMMARY | 2024-01-16 10:20 | External Medical Summary | Summary of Care ---
Author Name Unknown Organization [facility] Address [address] [place] [address] Phone [phone] Care Team Providers Care Ruby On Rails Consultant Name Role Phone Foster Zuniga MD Primary Care Provider [phone] Encounter Details Date Type Department Care Team (Late st Contact Info) Description 08/17/2023 11:45 AM EDT Scheduled Telephone Care Coordination and Integration [address], [place] [id number] Lalitha Burnett [facility] [address] [place] [address] Allergies Active Allergy Reactions Criticality Noted Date [...] directed via G tube via bolus syringe 50088 mL 11 07/11/2023 Active Apixaban 2.5 MG Oral Tablet (Eliquis) 1 Tablet. 0 07/23/2023 Active Carvedilol 6.25 MG Oral Tablet (Coreg) 1 Tablet. 0 07/27/2023 Activ e Hospital, Clinic, or Other Facility Administered Medication Ordered Dose Route Frequency Start Date End Date Status Denosumab (Prolia) subcut inj 60 mgIndications:Senile osteoporosis 60 mg SC [id number] 07/11/2023 07/05/2024 Active documented as of this [...] mRNA, LNP-s, No Pre serve, 2-Dose Series ([employer]) 03/16/2021,08/12/2020,07/22/2020 Covid-19, Mrna, Lnp-s, Pf, B ivalent, [...] of this encounter Progress Notes * Lalitha Burnett, [facility] - 08/17/2023 12:49 PM EDT Telemedicine visit: No [facility] ([place]ITT[place]) documentation: [facility] EMMA f/u call week 2 per MARIELLA Awan [facility] survey completed. Pt's spouse returned call to [facility] and stated pt's energy level is poor. He stated he is trying to get her a Gastrology appointment BELL because she is having trouble at her feeding tube. [facility] did TT this information to MARIELLA Dainel Who is covering today for MARIELLA Awan. * Lalitha Burnett [facility] - 08/17/2023 12:19 PM EDT Telemedicine visit: No [facility] (BRITTNEY) documentation: [facility] EMMA f/u call wk 2 per MARIELLA Awan [facility], left vm- to return call to documented in this encounter Plan of Treatment Upcoming Encounters Date Type Department Care Team (Late st Contact Info) Description 08/22/2023 3:30 PM EDT Office Visit Gastroenterology, [facility] [address] [address] Imtiaz Kinsey MD [address] [place] [address] 09/03/2023 12:00 PM EDT Office Visit Gastroenterology, [facility] [address] [place] [address] mItiaz Kinsey MD [address] [place] [address] 09/21/2023 3:00 PM EDT Office Visit Gynecology/Obstetrics [facility] [address] [place] [address] Balbina Naik CRNP [address] [place] [address] 09/28/2023 1:30 PM EDT Office Visit Cardiology, [facility] [address] [place] [address] Allan Siddiqui PA-C [address] [place] [address] 11/27/2023 9:20 AM EDT Office Visit Family Practice [facility] 132 [facility] [place] [address] Foster Zuniga MD 132 [facility] [place] [address] 01/14/2024 1:30 PM EDT Nurse Only Rheumatology [address] [place] [address] Pf, Nurse Rheum [address] [place] [address] [place] [address] 06/23/2024 11:30 AM EST Imaging Radiology [facility] 1st [facility] 132 [facility] [place] [address] 07/09/2024 11:30 AM EDT Office Visit Urology, [facility] [address] Spencer Kumari MD 27 [facility] [address] [place] [address] Health Maintenance Due Date Last [...] D LEVEL ONCE IN A LIFETIME-USE SMARTSET# [id number] Completed 06/27/2023, 01/10/2021, 09/25/2008 GARDASIL-HPV IMMUNIZATION SERIES [...] patient or by statute hierarchy) Care Teams Ruby On Rails Consultant Relationship Specialty Start Date End Date Foster Zuniga MD 132 [place] [address] PCP - General Family Medicine 04/02/23 documented as of this encounter
--- OUTSIDE RECORDS SUMMARY | 2024-01-16 10:20 | External Medical Summary | Summary of Care ---
Author Name Unknown Organization [facility] Address [address] [place] [address] Phone [phone] Care Team Providers Care Shrimp Trawler Captain Name Role Phone Foster Zuniga MD Primary Care Provider [phone] Reason for Visit * Reason Onset Date Comments Advice 08/14/2023 Encounter Details Date Type Department Care Team (Late st Contact Info) Description 08/14/2023 Telephone Gastroenterology, [facility] [address] [place] [address] Imtiaz Kinsey MD [address] [place] [address] Advice Allergies Active Allergy Reactions Criticality Noted Date Comments Penicillins 10/25/1999 rash and given shot as a child, has tolerated augmentin ok as well as cephalosporin documented as of this encounter (statuses as of 08/16/2023) Medications Medication Sig Dispensed Refills Start Date [...] directed via G tube via bolus syringe 68225 mL 11 07/11/2023 Active Apixaban 2.5 MG Oral Tablet (Eliquis) 1 Tablet. 0 07/23/2023 Active Carvedilol 6.25 MG Oral Tablet (Coreg) 1 Tablet. 0 07/27/2023 Activ e Hospital, Clinic, or Other Facility Administered Medication Ordered Dose Route Frequency Start Date End Date Status Denosumab (Prolia) subcut inj 60 mgIndications:Senile osteoporosis 60 mg SC [id number] 07/11/2023 07/05/2024 Active documented as of this encounter (statuses as of 08/16/2023) Active Problems Problem Noted Date Diagnosed Date [...] as of this encounter (statuses as of 08/16/2023) Resolved Problems Problem Noted Date Diagnosed Date [...] as of this encounter (statuses as of 08/16/2023) Immunizations Name Administration Dates Next Due COVID-19 mRNA, LNP-s, No Pre serve, 2-Dose Series ([employer]) 03/16/2021,08/12/2020,07/22/2020 Covid-19, Mrna, Lnp-s, Pf, B ivalent, [...] they did not want to travel to [place]. Pt is scheduled for Sunday08/22/23 at 3:30 [...] Lmm for pt to either call or [place] for scheduling ARI Martinez 08/14/2023 2:35 PM * Telephone Encounter - Mayra Orellana OSA - 08/14/2023 2:[address] Kinsey: Sure, I can do this in [facility] tomorrow if pt willing to travel. If [...] Telephone Care Coordination and Integration [address] [place] [address] Lalitha Burnett, [facility] Automation/Controls Manager [address] [place] [address] 08/22/2023 3:30 PM EDT Office Visit Gastroenterology, [facility] [address] [place] [address] Imtiaz Kinsey MD [address] [place] [address] 09/03/2023 12:00 PM EDT Office Visit Gastroenterology, [facility] [place] [address] Imtiaz Kinsey MD [address] [place] [address] 09/21/2023 3:00 PM EDT Office Visit Gynecology/Obstetrics [facility] [address] [place] [address] Balbina Naik CRNP [address] [place] [address] 09/28/2023 1:30 PM EDT Office Visit Cardiology, [facility] [address] [place] [address] Allan Siddiqui PAWojciech [address] [place] [address] 11/27/2023 9:20 AM EDT Office Visit Family Practice [facility] [address] [place] [address] Foster Zuniga MD [address] [place] [address] 01/14/2024 1:30 PM EDT Nurse Only Rheumatology [facility] 25[address] [facility] [place] [address] Pf, Nurse Rheum 25[address] [facility] [place] [address] 06/23/2024 11:30 AM EST Imaging Radiology [facility] 1st [facility] 132 [facility] [place] [address] 07/09/2024 11:30 AM EDT Office Visit Urology, [facility] 132 [facility] [place] [address] Spencer Kumari MD 27 [facility] [address] [place] [address] Health Maintenance Due [...] D LEVEL ONCE IN A LIFETIME-USE SMARTSET# [id number] Completed 06/27/2023, 01/10/2021, 09/25/2008 GARDASIL-HPV IMMUNIZATION SERIES [...] patient or by statute hierarchy) Care Teams Shrimp Trawler Captain Relationship Specialty Start Date End Date Foster Zuniga MD 132 [place] [address] PCP - General Family Medicine 04/02/23 documented as of this encounter
--- OUTSIDE RECORDS SUMMARY | 2024-01-16 10:20 | External Medical Summary | Summary of Care ---
Author Name Unknown Organization [facility] Address [address] [place] [address] Phone [phone] Care Team Providers Care Water Restoration Technician Name Role Phone Foster Zuniga MD Primary Care Provider [phone] Reason for Visit * Reason Onset Date Comments Test Results 08/15/2023 Encounter Details Date Type Department Care Team (Late st Contact Info) Description 08/15/2023 Telephone Family Practice [facility] [address] [place] [address] Foster Zuniga MD [address] [place] [...] directed via G tube via bolus syringe 80497 mL 11 07/11/2023 Active Apixaban 2.5 MG Oral Tablet (Eliquis) 1 Tablet. 0 07/23/2023 Active Carvedilol 6.25 MG Oral Tablet (Coreg) 1 Tablet. 0 07/27/2023 Activ e Hospital, Clinic, or Other Facility Administered Medication Ordered Dose Route Frequency Start Date End Date Status Denosumab (Prolia) subcut inj 60 mgIndications:Senile osteoporosis 60 mg SC [id number] 07/11/2023 07/05/2024 Active documented as of this [...] mRNA, LNP-s, No Pre serve, 2-Dose Series ([employer]) 03/16/2021,08/12/2020,07/22/2020 Covid-19, Mrna, Lnp-s, Pf, B ivalent, [...] 09/03/2023 12:00 PM EDT Office Visit Gastroenterology, [facility] [address] [place] [address] Imtiaz Kinsey MD [address] [place] [address] 09/21/2023 3:00 PM EDT Office Visit Gynecology/Obstetrics [facility] [address] [place] [address] Balbina Naik CRNP [address] [place] [address] 09/28/2023 1:30 PM EDT Office Visit Cardiology, [facility] [address] [place] [address] Allan Siddiqui PA-C [address] [place] [address] 11/27/2023 9:20 AM EDT Office Visit Family Practice [facility] [address] [place] [address] Foster Zuniga MD [address] [place] [address] 01/14/2024 1:30 PM EDT Nurse Only Rheumatology [place] [address] [facility] [place] [address] Pf, Nurse Rheum 25[address] [place] [address] 06/23/2024 11:30 AM EST Imaging Radiology [facility] 1st Floor, [place] 132 [facility] [place] [address] 07/09/2024 11:30 AM EDT Office Visit Urology, [facility] 132 [facility] [place] [address] Spencer Kumari MD 27 [facility] [address] [place] [address] Health Maintenance Due Date Last Done Comments [...] D LEVEL ONCE IN A LIFETIME-USE SMARTSET# [id number] Completed 06/27/2023, 01/10/2021, 09/25/2008 GARDASIL-HPV IMMUNIZATION SERIES [...] or by statute hierarchy) Care Teams Water Restoration Technician Relationship Specialty Start Date End Date Foster Zuniga MD [address] [place] [address] PCP - General Family Medicine 04/02/23 documented as of this encounter
--- OUTSIDE RECORDS SUMMARY | 2024-01-16 10:20 | External Medical Summary ---
Author Name Unknown Address Unknown Organization K01:[facility] - [address] [place] [address] Laboratory Report Ordering Provider Test Date Status RONEN DAVE 08/23/2023 11:24:42 Final Observation Date Value Abnormality Reference (Units ) Status WBC, Total 08/23/2023 11:24:42 5.12 4.00-10.8 0 (K/uL) Final RBC 08/23/2023 11:24:42 4.00 3.85-5.15 (M/uL) Final Hemoglobin 08/23/2023 11:24:42 12.4 12.0-15.3 (g/dL) Final Anemia reflex testing trigge rs on a HGB < 12.0 for Females and HGB < 13.0 for Males in accordance with the WHO Anemia Guidelines HCT 08/23/2023 11:24:42 39.2 36.0-45.2 (%) Final MCV 08/23/2023 11:24:42 98.0 81.5-97.5 (fL) Final MCH 08/23/2023 11:24:42 31.0 27.0-34.0 (pg) Final MCHC 08/23/2023 11:24:42 31.6 32.0-36.0 (g/dL) Final RDW 08/23/2023 11:24:42 15.5 11.5-15.5 (%) Final Platelets 08/23/2023 11:24:42 220 140-400 (K /uL) Final MPV 08/23/2023 11:24:42 13.1 6.6-11.1 ( fL) Final Nucleated erythrocytes/100 leukocytes [Ratio] in Blood by Automated count 08/23/2023 11:24:42 0 <=0 (/100 WBCs) Fi nal Performing Location [facility] - [address] [place] [address]
--- OUTSIDE RECORDS SUMMARY | 2024-01-16 10:20 | External Medical Summary | Summary of Care ---
Author Name Unknown Organization [facility] Address [address] [place] [address] Phone [phone] Care Team Providers Care Hose Stripper Name Role Phone Foster Zuniga MD Primary Care Provider [phone] Reason for Visit * Reason Onset Date Comments Advice 08/14/2023 Encounter Details Date Type Department Care Team (Late st Contact Info) Description 08/14/2023 Telephone Gastroenterology, [facility] [address] [place] [address] Imtiaz Kinsey MD [address] [place] [address] Advice Allergies Active Allergy Reactions Criticality Noted [...] directed via G tube via bolus syringe 36540 mL 11 07/11/2023 Active Apixaban 2.5 MG Oral Tablet (Eliquis) 1 Tablet. 0 07/23/2023 Active Carvedilol 6.25 MG Oral Tablet (Coreg) 1 Tablet. 0 07/27/2023 Activ e Hospital, Clinic, or Other Facility Administered Medication Ordered Dose Route Frequency Start Date End Date Status Denosumab (Prolia) subcut inj 60 mgIndications:Senile osteoporosis 60 mg SC [id number] 07/11/2023 07/05/2024 Active documented as of this [...] mRNA, LNP-s, No Pre serve, 2-Dose Series ([employer]) 03/16/2021,08/12/2020,07/22/2020 Covid-19, Mrna, Lnp-s, Pf, B ivalent, [...] EDT Lmm for pt to either call EVONNE or [place] for scheduling ARI Martinez 08/14/2023 2:35 PM * Telephone Encounter - Mayra Orellana OSA - 08/14/2023 2:[address] Kinsey: Sure, I can do this in [facility] tomorrow if pt willing to travel. If [...] 09/03/2023 12:00 PM EDT Office Visit Gastroenterology, [facility] [address] [place] [address] Imtiaz Kinsey MD [address] [place] [address] 09/21/2023 3:00 PM EDT Office Visit Gynecology/Obstetrics [facility] [address] [place] [address] Balbina Naik CRNP [address] [place] [address] 09/28/2023 1:30 PM EDT Office Visit Cardiology, [facility] [address] [place] [address] Allan Siddiqui PA-C [address] [place] [address] 11/27/2023 9:20 AM EDT Office Visit Family Practice [facility] [address] [place] [address] Foster Zuniga MD 132 [facility] [place] [address] 01/14/2024 1:30 PM EDT Nurse Only Rheumatology [address] [place] [address] Pf, Nurse Rheum [address] [place] [address] [place] [address] 06/23/2024 11:30 AM EST Imaging Radiology [facility] 1st [facility] [address] [facility] [place] [address] 07/09/2024 11:30 AM EDT Office Visit Urology, [facility] 132 [place] [address] Spencer Kumari MD 27 [facility] [address] [place] [address] Health Maintenance Due Date Last Done Comments [...] D LEVEL ONCE IN A LIFETIME-USE SMARTSET# [id number] Completed 06/27/2023, 01/10/2021, 09/25/2008 GARDASIL-HPV IMMUNIZATION SERIES [...] patient or by statute hierarchy) Care Teams Hose Stripper Relationship Specialty Start Date End Date Foster Zuniga MD [address] [place] [address] PCP - General Family Medicine 04/02/23 documented as of this encounter
--- OUTSIDE RECORDS SUMMARY | 2024-01-16 10:21 | External Medical Summary ---
Author Name Unknown Address Unknown Organization K0G:[facility] [address] [place] [address] Laboratory Report Ordering Provider Test Date Status ROLAND LARA 08/14/2023 14:21:40 Final Observation Date Value Abnormality Reference (Units ) Status BUN 08/14/2023 14:21:40 25 Above high normal 6-20 (mg/dL) Final Creatinine 08/14/2023 14:21:40 0.6 0.5-1.0 (mg/dL) Final Glomerular filtration rate/1.73 sq M.predicted [Volume Rate/Area] in Serum, Plasma or Blood by Creatinine-based formula (CKD-EPI) 08/14/2023 14:21:40 >90 >=60 (mL/min) Final eGFR is calculated based on the CKD-EPI 2020 equation Sodium 08/14/2023 14:21:40 139 135-146 (m mol/L) Final Potassium 08/14/2023 14:21:40 4.5 3.5-5.1 (m mol/L) Final Cl 08/14/2023 14:21:40 101 98-107 (mm ol/L) Final CO2 08/14/2023 14:21:40 29 22-32 (mmo l/L) Final Anion gap 08/14/2023 14:21:40 9 7-15 (mmol /L) Final Glucose 08/14/2023 14:21:40 111 70-120 (mg /dL) Final Calcium 08/14/2023 14:21:40 10.1 8.4-10.2 ( mg/dL) Final Performing Location [facility] [place] [address]
--- OUTSIDE RECORDS SUMMARY | 2024-01-16 10:21 | External Medical Summary | Summary of Care ---
Author Name Unknown Organization [facility] Address [address] [place] [address] Phone [phone] Care Team Providers Care Avionics Electrical Engineer Name Role Phone Foster Zuniga MD Primary Care Provider [phone] [phone] Encounter Details Date Type Department Care Team (Late st Contact Info) Description 07/25/2023 Telephone Access Center, [place] [address] [facility] *DO NOT REMOVE THIS DEPARTMENT* [place], [place] [id number] Services, Scheduling [address] [place] [address] Allergies Active Allergy Reactions Criticality Noted Date Comments Penicillins 10/25/1999 rash and given shot as a child, has tolerated augmentin ok as well as cephalosporin documented as of this encounter (statuses as of 07/31/2023) Medications Medication Sig Dispensed Refills Start Date [...] directed via G tube via bolus syringe 14002 mL 11 07/11/2023 Active Hospital, Clinic, or Other Facility Administered Medication Ordered Dose Route Frequency Start Date End Date Status Denosumab (Prolia) subcut inj 60 mgIndications:Senile osteoporosis 60 mg SC [id number] 07/11/2023 07/05/2024 Active documented as of this encounter (statuses as of 07/31/2023) Active Problems Problem Noted Date Diagnosed Date [...] as of this encounter (statuses as of 07/31/2023) Resolved Problems Problem Noted Date Diagnosed Date [...] as of this encounter (statuses as of 07/31/2023) Immunizations Name Administration Dates Next Due COVID-19 mRNA, LNP-s, No Pre serve, 2-Dose Series ([employer]) 03/16/2021,08/12/2020,07/22/2020 Covid-19, Mrna, Lnp-s, Pf, B ivalent, 30 Mcg, IM, 12 yrs and above ([employer]) 02/24/2022 Pneumococcal Conjugate Vacc, 13 Valent [...] Telephone Encounter - Foster Zuniga MD - 07/31/2023 3:51 PM EDT No but I got an FYI yesterday she was refusing home health * Telephone Encounter - Tiara Cervantes LPN - 07/31/2023 3:12 PM EDT Do you recall getting this? * Telephone Encounter - Chasity Carmen OSA - 07/25/2023 10:47 AM EDT Received a call asking if fax was received by office. Name/Company sending fax: [facility] What fax is pertaining to: Medicare FMN Date(s) they sent request: 07/25/23 Verified fax number they are sending to is correct (Y or N): Y ([phone]) Callback Number for the clinic to call to verified if fax was received: [phone] documented in this encounter Plan of Treatment Upcoming Encounters Date Type Department Care Team (Late st Contact Info) Description 08/01/2023 12:20 PM EDT Office Visit [facility] [address] [place] [address] Foster Zuniga MD [address] [place] [address] 09/03/2023 12:00 PM EDT Office Visit Gastroenterology, [facility] [address] [place] [address] Imtiaz Kinsey MD [address] [place] [address] 09/21/2023 3:00 PM EDT Office Visit Gynecology/Obstetrics [facility] [address] [place] [address] Balbina Naik CRNP [address] [place] [address] 11/27/2023 9:20 AM EDT Office Visit [facility] [address] [place] [address] Foster Zuniga MD [address] [place] [address] 01/14/2024 1:30 PM EDT Nurse Only Rheumatology [address] [address] Pf, Nurse Rheum [address] [facility] [place] [address] 06/23/2024 11:30 AM EST Imaging Radiology [facility] 1st Floor, [place] 132 [facility] [place] [address] 07/09/2024 11:30 AM EDT Office Visit Urology, [facility] 132 [facility] [place] [address] Spencer Kumari MD [address] [place] [address] [place] [address] Health Maintenance Due Date Last Done Comments [...] D LEVEL ONCE IN A LIFETIME-USE SMARTSET# [id number] Completed 06/27/2023, 01/10/2021, 09/25/2008 GARDASIL-HPV IMMUNIZATION SERIES [...] patient or by statute hierarchy) Care Teams Avionics Electrical Engineer Relationship Specialty Start Date End Date Foster Zuniga MD [address] [place] [address] PCP - General Family Medicine 04/02/23 documented as of this encounter
--- OUTSIDE RECORDS SUMMARY | 2024-01-16 10:21 | External Medical Summary | Summary of Care ---
Author Name Unknown Organization [facility] Address [address] [place] [address] Phone [phone] Care Team Providers Care Mailing Machine Assistant Name Role Phone Foster Zuniga MD Primary Care Provider [phone] [phone] Reason for Visit * Reason Onset Date Comments Forms Request 08/03/2023 Medicare SMN Encounter Details Date Type Department Care Team (Late st Contact Info) Description 08/03/2023 Telephone Family Practice [facility] [place] [address] Foster Zuniga MD [address] [place] [address] Forms Request (Medicare SMN) Allergies Active Allergy Reactions Criticality Noted Date Comments Penicillins 10/25/1999 rash and given shot as a child, has tolerated augmentin ok as well as cephalosporin documented as of this encounter (statuses as of 08/03/2023) Medications Medication Sig Dispensed Refills Start Date [...] directed via G tube via bolus syringe 27180 mL 11 07/11/2023 Active Apixaban 2.5 MG Oral Tablet (Eliquis) 1 Tablet. 0 07/23/2023 Active Carvedilol 6.25 MG Oral Tablet (Coreg) 1 Tablet. 0 07/27/2023 Activ e Hospital, Clinic, or Other Facility Administered Medication Ordered Dose Route Frequency Start Date End Date Status Denosumab (Prolia) subcut inj 60 mgIndications:Senile osteoporosis 60 mg SC [id number] 07/11/2023 07/05/2024 Active documented as of this encounter (statuses as of 08/03/2023) Active Problems Problem Noted Date Diagnosed Date [...] as of this encounter (statuses as of 08/03/2023) Resolved Problems Problem Noted Date Diagnosed Date [...] as of this encounter (statuses as of 08/03/2023) Immunizations Name Administration Dates Next Due COVID-19 mRNA, LNP-s, No Pre serve, 2-Dose Series (Active [employer]) 03/16/2021,08/12/2020,07/22/2020 Covid-19, Mrna, Lnp-s, Pf, B ivalent, 30 Mcg, IM, 12 yrs and above (Active [facility]SP) 02/24/2022 Pneumococcal Conjugate Vacc, 13 Valent (Prevnar) [...] encounter Miscellaneous Notes * Telephone Encounter - Luma Gonzalez OSA - 08/03/2023 8:46 AM EDT Kylah from [facility] called stating that she faxed over forms for a Medicare SMN for Dr. Zuniga to complete and send back. She was checking to see if we received them and if it was possible to getthem filled out and faxed back to her at [phone]. Please advise documented in this encounter Plan of Treatment Upcoming Encounters Date Type Department Care Team (Late st Contact Info) Description 08/07/2023 10:00 AM EDT Imaging Radiology [facility] 1st Floor, [place] [address] [place] [address] 08/07/2023 10:30 AM EDT Imaging Radiology [facility] [address] [place] [address] 09/03/2023 12:00 PM EDT Office Visit Gastroenterology, [facility] [address] [facility] [place] [address] Imtiaz Kinsey MD [address] [place] [address] 09/21/2023 3:00 PM EDT Office Visit Gynecology/Obstetrics [facility] [address] [place] [address] Balbina Naik CRNP [address] [place] [address] 09/28/2023 1:30 PM EDT Office Visit Cardiology, [facility] [address] [place] [address] Allan Siddiqui PARachellC [address] [place] [address] 11/27/2023 9:20 AM EDT Office Visit Family Practice [facility] [address] [place] [address] Foster Zuniga MD [address] [place] [address] 01/14/2024 1:30 PM EDT Nurse Only Rheumatology [place] [address] [place] [address] Pf, Nurse Rheum [address] [facility] [place] [address] 06/23/2024 11:30 AM EST Imaging Radiology [facility] 1st [facility] 132 [facility] [place] [address] 07/09/2024 11:30 AM EDT Office Visit Urology, [facility] 132 [facility] [place] [address] Spencer Kumari MD [address] [place] [address] [place] [address] Health Maintenance [...] D LEVEL ONCE IN A LIFETIME-USE SMARTSET# [id number] Completed 06/27/2023, 01/10/2021, 09/25/2008 GARDASIL-HPV IMMUNIZATION SERIES [...] patient or by statute hierarchy) Care Teams Mailing Machine Assistant Relationship Specialty Start Date End Date Foster Zuniga MD [address] [place] [address] PCP - General Family Medicine 04/02/23 documented as of this encounter
--- OUTSIDE RECORDS SUMMARY | 2024-01-16 10:21 | External Medical Summary | Summary of Care ---
Author Name Unknown Organization [facility] Address [address] [place] [address] Phone [phone] Care Team Providers Care Wire Photo Operator News Name Role Phone Foster Zuniga MD Primary Care Provider [phone] [phone] Reason for Visit * Reason Comments Outpatient Testing Encounter Details Date Type Department Care Team (Late st Contact Info) Description 08/14/2023 2:30 PM EDT Laboratory Laboratory, [facility] [address] [facility] [place] [address] [facility] 132 [facility] [place] [address] Status post insertion of percutaneous endoscopic gastrostomy (PEG) tube ([facility]) Allergies Active Allergy Reactions Criticality Noted Date [...] directed via G tube via bolus syringe 25695 mL 11 07/11/2023 Active Apixaban 2.5 MG Oral Tablet (Eliquis) 1 Tablet. 0 07/23/2023 Active Carvedilol 6.25 MG Oral Tablet (Coreg) 1 Tablet. 0 07/27/2023 Activ e Hospital, Clinic, or Other Facility Administered Medication Ordered Dose Route Frequency Start Date End Date Status Denosumab (Prolia) subcut inj 60 mgIndications:Senile osteoporosis 60 mg SC [id number] 07/11/2023 07/05/2024 Active documented as of this [...] mRNA, LNP-s, No Pre serve, 2-Dose Series ([employer]) 03/16/2021,08/12/2020,07/22/2020 Covid-19, Mrna, Lnp-s, Pf, B ivalent, 30 Mcg, IM, 12 yrs and above ([employer]) 02/24/2022 Pneumococcal Conjugate Vacc, 13 Valent (Prevnar) [...] Visit Gastroenterology, [facility] [address] [place] [address] Imtiaz Kinsey MD [address] [place] [address] 09/21/2023 3:00 PM EDT Office Visit Gynecology/Obstetrics [facility] [address] [facility] [place] [address] Balbina Naik CRNP [address] [place] [address] 09/28/2023 1:30 PM EDT Office Visit Cardiology, [facility] [place] [address] Allan Siddiqui PA-C 132 [facility] [place] [address] 11/27/2023 9:20 AM EDT Office Visit Family Practice [facility] [place] [address] Foster Zuniga MD 132 [facility] [place] [address] 01/14/2024 1:30 PM EDT Nurse Only Rheumatology [address] [place] [address] Pf, Nurse Rheum [address] [place] [address] [place] [address] 06/23/2024 11:30 AM EST Imaging Radiology [facility] [address] [facility] [place] [address] 07/09/2024 11:30 AM EDT Office Visit Urology, [facility] [address] [facility] [place] [address] Spencer Kumari MD 27 [facility] [address] [place] [address] Pending Results Name Type Priority Associated Diagnoses Date /Time BASIC METABOLIC PANEL Lab Routine Status post insertion of percutaneous endoscopic gastrostomy (PEG) tube (HCC) 08/14/2023 2:21 PM EDT MAGNESIUM Lab Routine Status post insertion of percutaneous endoscopic gastrostomy (PEG) tube (HCC) 08/14/2023 2:21 PM EDT PREALBUMIN Lab Routine Status post insertion of percutaneous endoscopic gastrostomy (PEG) tube (HCC) 08/14/2023 2:21 PM EDT Health Maintenance Due Date Last [...] D LEVEL ONCE IN A LIFETIME-USE SMARTSET# [id number] Completed 06/27/2023, 01/10/2021, 09/25/2008 GARDASIL-HPV IMMUNIZATION SERIES [...] as of this encounter Visit Diagnoses Diagnosis Status post insertion of percutaneous endoscopic gastrostomy (PEG) tube (HCC) documented in this encounter Advance Directives Healthcare Agents on File Name Relationship Healthcare Agent Relationshi p Communication Cristobal Jackson Spouse Health Care Repr esentative (appointed verbally by patient or by statute hierarchy) Care Teams Wire Photo Operator News Relationship Specialty Start Date End Date Foster Zuniga MD [address] [place] [address] PCP - General Family Medicine 04/02/23 documented as of this encounter
--- OUTSIDE RECORDS SUMMARY | 2024-01-16 10:21 | External Medical Summary ---
Author Name Unknown Address Unknown Organization K[facility] [address] [place] [address] Laboratory Report Ordering Provider Test Date Status ROLAND LARA 08/14/2023 14:21:40 Final Observation Date Value Abnormality Reference (Units ) Status Magnesium 08/14/2023 14:21:40 2.2 1.5-2.6 (m g/dL) Final Performing Location [facility] [address] [place] [address]
--- OUTSIDE RECORDS SUMMARY | 2024-01-16 10:21 | External Medical Summary | Summary of Care ---
Author Name Unknown Organization [facility] Address [address] [place] [address] Phone [phone] Care Team Providers Care Wet Silk Hanger Name Role Phone Foster Zuniga MD Primary Care Provider +1 -[phone] Reason for Visit * Reason Onset Date Comments Advice 08/14/2023 Encounter Details Date Type Department Care Team (Late st Contact Info) Description 08/14/2023 Telephone Gastroenterology, [facility] [address] [place] [address] Imtiaz Kinsey MD [address] [place] [address] Advice Allergies Active Allergy Reactions Criticality Noted [...] directed via G tube via bolus syringe 76935 mL 11 07/11/2023 Active Apixaban 2.5 MG Oral Tablet (Eliquis) 1 Tablet. 0 07/23/2023 Active Carvedilol 6.25 MG Oral Tablet (Coreg) 1 Tablet. 0 07/27/2023 Activ e Hospital, Clinic, or Other Facility Administered Medication Ordered Dose Route Frequency Start Date End Date Status Denosumab (Prolia) subcut inj 60 mgIndications:Senile osteoporosis 60 mg SC [id number] 07/11/2023 07/05/2024 Active documented as of this [...] mRNA, LNP-s, No Pre serve, 2-Dose Series ([employer]) 03/16/2021,08/12/2020,07/22/2020 Covid-19, Mrna, Lnp-s, Pf, B ivalent, [...] Kinsey: Sure, I can do this in [facility] tomorrow if pt willing to travel. [...] 09/03/2023 12:00 PM EDT Office Visit Gastroenterology, [facility] [address] [place] [address] Imtiaz Kinsey MD [address] [place] [address] 09/21/2023 3:00 PM EDT Office Visit Gynecology/Obstetrics [facility] [address] [place] [address] Balbina Naik CRNP [address] [place] [address] 09/28/2023 1:30 PM EDT Office Visit Cardiology, [facility] [address] [place] [address] Allan Siddiqui PA-C [address] [place] [address] 11/27/2023 9:20 AM EDT Office Visit Family Practice [facility] [address] [place] [address] Foster Zuinga MD 132 [facility] [place] [address] 01/14/2024 1:30 PM EDT Nurse Only Rheumatology [address] [place] [address] Pf, Nurse Rheum [address] [place] [address] [place] [address] 06/23/2024 11:30 AM EST Imaging Radiology [facility] 1st [facility] [address] [facility] [place] [address] 07/09/2024 11:30 AM EDT Office Visit Urology, [facility] [address] [place] [address] Spencer Kumari MD 27 [facility] [address] [place] [id number] Health Maintenance Due Date Last Done Comments [...] D LEVEL ONCE IN A LIFETIME-USE SMARTSET# [id number] Completed 06/27/2023, 01/10/2021, 09/25/2008 GARDASIL-HPV IMMUNIZATION SERIES [...] patient or by statute hierarchy) Care Teams Wet Silk Hanger Relationship Specialty Start Date End Date Foster Zuniga MD [address] [place] [address] PCP - General Family Medicine 04/02/23 documented as of this encounter
--- OUTSIDE RECORDS SUMMARY | 2024-01-16 10:21 | External Medical Summary | Summary of Care ---
Author Name Unknown Organization [facility] Address [address] [place] [address] Phone [phone] Care Team Providers Care Driver Trainee Name Role Phone Foster Zuniga MD Primary Care Provider +1 -[phone] Reason for Visit * Reason Onset Date Comments Forms Request 08/03/2023 Medicare SMN Encounter Details Date Type Department Care Team (Late st Contact Info) Description 08/03/2023 Telephone Family Practice [facility] [place] [address] Foster Zuniga MD [address] [place] [address] Forms Request (Medicare SMN) Allergies Active Allergy [...] directed via G tube via bolus syringe 56124 mL 11 07/11/2023 Active Apixaban 2.5 MG Oral Tablet (Eliquis) 1 Tablet. 0 07/23/2023 Active Carvedilol 6.25 MG Oral Tablet (Coreg) 1 Tablet. 0 07/27/2023 Activ e Hospital, Clinic, or Other Facility Administered Medication Ordered Dose Route Frequency Start Date End Date Status Denosumab (Prolia) subcut inj 60 mgIndications:Senile osteoporosis 60 mg SC [id number] 07/11/2023 07/05/2024 Active documented as of this [...] LNP-s, No Pre serve, 2-Dose Series ([employer]) 03/16/2021,08/12/2020,07/22/2020 Covid-19, Mrna, Lnp-s, Pf, B ivalent, 30 Mcg, IM, 12 yrs and above ([employer]) 02/24/2022 Pneumococcal Conjugate Vacc, 13 Valent (Prevnar) [...] - 08/03/2023 8:46 AM EDT Kylah from [facility] called stating that she faxed over forms for a Medicare SMN for Dr. Zuniga to complete and send back. She was checking to see if we received them and if it was possible to getthem filled out and faxed back to her at [phone]. Please advise documented in this encounter Plan of Treatment Upcoming Encounters Date Type Department Care Team (Late st Contact Info) Description 08/07/2023 10:00 AM EDT Imaging Radiology [facility] 1st Floor, [place] [address] [place] [address] 08/07/2023 10:30 AM EDT Imaging Radiology [facility] [address] [place] [address] 09/03/2023 12:00 PM EDT Office Visit Gastroenterology, [facility] [place] [address] Imtiaz Kinsey MD [address] [place] [address] 09/21/2023 3:00 PM EDT Office Visit Gynecology/Obstetrics [facility] [address] [place] [address] Balbina Naik CRNP [address] [place] [address] 09/28/2023 1:30 PM EDT Office Visit Cardiology, [facility] [address] [place] [address] Allan Siddiqui PARachellC [address] [place] [address] 11/27/2023 9:20 AM EDT Office Visit Family Practice [facility] [address] [place] [address] Foster Zuniga MD [address] [place] [address] 01/14/2024 1:30 PM EDT Nurse Only Rheumatology [place] [address] [place] [address] Pf, Nurse Rheum [facility] [facility] [place] [address] 06/23/2024 11:30 AM EST Imaging Radiology [facility] 1st [facility] 132 [facility] [place] [address] 07/09/2024 11:30 AM EDT Office Visit Urology, [facility] 132 [facility] [place] [address] Spencer Kumari MD [address] [place] [...] D LEVEL ONCE IN A LIFETIME-USE SMARTSET# [id number] Completed 06/27/2023, 01/10/2021, 09/25/2008 GARDASIL-HPV IMMUNIZATION SERIES [...] patient or by statute hierarchy) Care Teams Driver Trainee Relationship Specialty Start Date End Date Foster Zuniga MD [address] [place] [address] PCP - General Family Medicine 04/02/23 documented as of this encounter
--- OUTSIDE RECORDS SUMMARY | 2024-01-16 10:21 | External Medical Summary ---
Author Name Unknown Address Unknown Organization K01:[facility] - [address] [place] [address] Laboratory Report Ordering Provider Test Date Status ROLAND LARA 08/14/2023 14:21:40 Final Observation Date Value Abnormality Reference (Units ) Status Prealbumin 08/14/2023 14:21:40 19 18-45 (mg /dL) Final Performing Location [facility] - [address] [place] [address]
--- OUTSIDE RECORDS SUMMARY | 2024-01-16 10:21 | External Medical Summary | Summary of Care ---
Author Name Unknown Organization [facility] Address [address] [place] [address] Phone [phone] Care Team Providers Care Director Of Sales Support Name Role Phone Foster Zuniga MD Primary Care Provider [phone] Reason for Visit * Reason Onset Date Comments Forms Request 08/03/2023 Medicare SMN Encounter Details Date Type Department Care Team (Late st Contact Info) Description 08/03/[address] [facility] [address] [facility] [place] [address] Foster Zuniga MD [address] [place] [address] Forms Request (Medicare SMN) Allergies Active Allergy Reactions Criticality Noted Date Comments Penicillins 10/25/1999 rash and given shot as a child, has tolerated augmentin ok as well as cephalosporin documented as of this encounter (statuses as of 08/06/2023) Medications Medication Sig Dispensed Refills Start Date [...] directed via G tube via bolus syringe 21352 mL 11 07/11/2023 Active Apixaban 2.5 MG Oral Tablet (Eliquis) 1 Tablet. 0 07/23/2023 Active Carvedilol 6.25 MG Oral Tablet (Coreg) 1 Tablet. 0 07/27/2023 Activ e Hospital, Clinic, or Other Facility Administered Medication Ordered Dose Route Frequency Start Date End Date Status Denosumab (Prolia) subcut inj 60 mgIndications:Senile osteoporosis 60 mg SC [id number] 07/11/2023 07/05/2024 Active documented as of this encounter (statuses as of 08/06/2023) Active Problems Problem Noted Date Diagnosed Date [...] as of this encounter (statuses as of 08/06/2023) Resolved Problems Problem Noted Date Diagnosed Date [...] as of this encounter (statuses as of 08/06/2023) Immunizations Name Administration Dates Next Due COVID-19 mRNA, LNP-s, No Pre serve, 2-Dose Series ([employer]) 03/16/2021,08/12/2020,07/22/2020 Covid-19, Mrna, Lnp-s, Pf, B ivalent, 30 Mcg, IM, 12 yrs and above ([employer]) 02/24/2022 Pneumococcal Conjugate Vacc, 13 Valent [...] out and faxed back to her at [phone]. Please advise documented in this encounter Plan of Treatment Upcoming Encounters Date Type Department Care Team (Late st Contact Info) Description 08/07/2023 10:00 AM EDT Imaging Radiology [facility] 1st Floor, [place] [address] [place] [address] 08/07/2023 10:30 AM EDT Imaging Radiology [facility] [address] [place] [address] 09/03/2023 12:00 PM EDT Office Visit Gastroenterology, [facility] [address] [place] [address] Imtiaz Kinsey MD [address] [place] [address] 09/21/2023 3:00 PM EDT Office Visit Gynecology/Obstetrics [facility] [address] [place] [address] Balbina Naik CRNP [address] [place] [address] 09/28/2023 1:30 PM EDT Office Visit Cardiology, [facility] [address] [place] [address] Allan Siddiqui PA-C [address] [place] [address] 11/27/2023 9:20 AM EDT Office Visit Family Practice [facility] [address] [place] [address] Foster Zuniga MD [address] [facility] [place] [address] 01/14/2024 1:30 PM EDT Nurse Only Rheumatology [facility] [address] [facility] [place] [address] Pf, Nurse Rheum [address] [facility] [place] [address] 06/23/2024 11:30 AM EST Imaging Radiology [address] [facility] [place] [address] 07/09/2024 11:30 AM EDT Office Visit Urology, [facility] 132 [facility] [place] [address] Spencer Kumari MD 27 [facility] [address] [place] [address] Health Maintenance Due Date Last Done Comments [...] D LEVEL ONCE IN A LIFETIME-USE SMARTSET# [id number] Completed 06/27/2023, 01/10/2021, 09/25/2008 GARDASIL-HPV IMMUNIZATION SERIES [...] or by statute hierarchy) Care Teams Director Of Sales Support Relationship Specialty Start Date End Date Foster Zuniga MD [address] [place] [address] PCP - General Family Medicine 04/02/23 documented as of this encounter
--- OUTSIDE RECORDS SUMMARY | 2024-01-16 10:21 | External Medical Summary | Summary of Care ---
Author Name Unknown Organization [facility] Address [address] [place] [address] Phone [phone] Care Team Providers Care Orthodontic Band Maker Name Role Phone Foster Zuniga MD Primary Care Provider [phone] Encounter Details Date Type Department Care Team (Late st Contact Info) Description 08/10/2023 12:15 PM EDT Scheduled Telephone Care Coordination and Integration [address], [place] [id number] Lalitha Burnett [facility] Consultant [address] [place] [address] Allergies Active Allergy Reactions Criticality Noted Date Comments Penicillins 10/25/1999 rash and given shot as a child, has tolerated augmentin ok as well as cephalosporin documented as of this encounter (statuses as of 08/10/2023) Medications Medication Sig Dispensed Refills Start Date [...] directed via G tube via bolus syringe 45783 mL 11 07/11/2023 Active Apixaban 2.5 MG Oral Tablet (Eliquis) 1 Tablet. 0 07/23/2023 Active Carvedilol 6.25 MG Oral Tablet (Coreg) 1 Tablet. 0 07/27/2023 Activ e Hospital, Clinic, or Other Facility Administered Medication Ordered Dose Route Frequency Start Date End Date Status Denosumab (Prolia) subcut inj 60 mgIndications:Senile osteoporosis 60 mg SC [id number] 07/11/2023 07/05/2024 Active documented as of this encounter (statuses as of 08/10/2023) Active Problems Problem Noted Date Diagnosed Date [...] as of this encounter (statuses as of 08/10/2023) Resolved Problems Problem Noted Date Diagnosed Date [...] as of this encounter (statuses as of 08/10/2023) Immunizations Name Administration Dates Next Due COVID-19 mRNA, LNP-s, No Pre serve, 2-Dose Series ([employer]) 03/16/2021,08/12/2020,07/22/2020 Covid-19, Mrna, Lnp-s, Pf, B ivalent, [...] Progress Notes * Lalitha Burnett, Community [facility] C Consultant - 08/10/2023 1:01 PM EDT Telemedicine visit: No Community Health C Consultant (BRITTNEY) documentation: CHW EMMA week 1 per Sherri Umanzor RNCM CHW spoke with spouse, Cristobal. CHW survey completed. Cristobal stated that pt. Is still having low energy and was wondering if there's anything that she could take to help with that. He questioned potassium because she was getting that in the hospital. She is a little constipated and started taking malox today for that. Denies any ne problems or concerns at this time and confirmed he has the number for the CM Electronically signed by Lalitha Burnett [facility] C Consultant at 08/10/2023 1:08 PM EDT documented in this encounter Plan of Treatment Upcoming Encounters Date Type Department Care Team (Late st Contact Info) Description 09/03/2023 12:00 PM EDT Office Visit Gastroenterology, [facility] [address] [address] Imtiaz Kinsey MD [address] [place] [address] 09/21/2023 3:00 PM EDT Office Visit Gynecology/Obstetrics [facility] [address] [address] Balbina Naik CRNP [address] [place] [address] 09/28/2023 1:30 PM EDT Office Visit Cardiology, [facility] [address] [address] Allan Siddiqui, PARachellC [address] [place] [address] 11/27/2023 9:20 AM EDT Office Visit Family Practice [facility] [address] [place] [address] Foster Zuniga MD [address] [place] [address] 01/14/2024 1:30 PM EDT Nurse Only Rheumatology [place] [address] [place] [address] Pf, Nurse Rheum [facility] Faust[address]kins [place] [address] 06/23/2024 11:30 AM EST Imaging Radiology [facility] 1st [facility] [address] [place] [address] 07/09/2024 11:30 AM EDT Office Visit Urology, [facility] [address] [place] [address] Spencer Kumari MD 27 [facility] [place] [address] [place] [address] [...] D LEVEL ONCE IN A LIFETIME-USE SMARTSET# [id number] Completed 06/27/2023, 01/10/2021, 09/25/2008 GARDASIL-HPV IMMUNIZATION SERIES [...] Relationship Healthcare Agent Relationshi p Communication Cristobal Jacksno Spouse Health Care Repr esentative (appointed verbally by patient or by statute hierarchy) Care Teams Orthodontic Band Maker Relationship Specialty Start Date End Date Foster Zuniga MD [address] [place] [address] PCP - General Family Medicine 04/02/23 documented as of this encounter
--- OUTSIDE RECORDS SUMMARY | 2024-01-16 10:21 | External Medical Summary | Summary of Care ---
Author Name Unknown Organization [facility] Address [address] [place] [address] Phone [phone] Care Team Providers Care Chemistry Lab Instructor Name Role Phone Foster Zuniga MD Primary Care Provider [phone] Reason for Referral * Evaluate & Treat - Unlimited Visits (Within 10 days (routine)) - Authorized Specialty Diagnoses / Procedures Referred By Obed briones Referred To Contact Cardiovascular Medicine / Cardiology Diagnoses Paroxysmal atrial fibrillation (HCC) Foster Zuniga MD [address] [place] [address] Referral ID Status Reason Start Date Expiration Date Visits Requested Visits Authorized [id number] Authorized Specialty Services Required 08/01/2023 999 999 Question Answer Referral Priority Within 10 days (routine) Where should this appointment be scheduled? [facility] To which of the following clinics are you referring your patient? General Cardiology Clinic Reason for Visit * Reason Onset Date Comments Hospital Follow-Up Pt here for h ospital follow up Hospital Follow-Up 08/02/2023 Encounter Details Date Type Department Care Team (Late st Contact Info) Description 08/01/2023 12:20 PM EDT Office Visit [facility] [address] [place] [address] Foster Zuniga MD [address] [place] [address] Hospital discharge follow-up*; Hx of breast cancer; Paroxysmal atrial fibrillation (HCC) Allergies Active Allergy Reactions Criticality Noted Date Comments Penicillins 10/25/1999 rash and given shot as a child, has tolerated augmentin ok as well as cephalosporin documented as of this encounter (statuses as of 08/02/2023) Medications Medication Sig Dispensed Refills Start Date [...] directed via G tube via bolus syringe 36403 mL 11 07/11/2023 Active Apixaban 2.5 MG Oral Tablet (Eliquis) 1 Tablet. 0 07/23/2023 Active Carvedilol 6.25 MG Oral Tablet (Coreg) 1 Tablet. 0 07/27/2023 Activ e Hospital, Clinic, or Other Facility Administered Medication Ordered Dose Route Frequency Start Date End Date Status Denosumab (Prolia) subcut inj 60 mgIndications:Senile osteoporosis 60 mg SC [id number] 07/11/2023 07/05/2024 Active documented as of this encounter (statuses as of 08/02/2023) Active Problems Problem Noted Date Diagnosed Date [...] as of this encounter (statuses as of 08/02/2023) Resolved Problems Problem Noted Date Diagnosed Date [...] as of this encounter (statuses as of 08/02/2023) Immunizations Name Administration Dates Next Due COVID-19 mRNA, LNP-s, No Pre serve, 2-Dose Series ([employer]) 03/16/2021,08/12/2020,07/22/2020 Covid-19, Mrna, Lnp-s, Pf, B ivalent, [...] Sign Reading Time Taken Comments Blood Pressure 134/62 08/01/2023 12:31 PM EDT Pulse 68 08/01/2023 12:31 PM EDT Temperature 36.9 C (98.5 F) 08/01/2023 12:31 PM E DT Respiratory Rate 18 08/01/2023 12:31 PM EDT Oxygen Saturation 96% 08/01/2023 12:31 PM EDT Inhaled Oxygen Concentration - - Weight 52.2 kg (115 lb) 08/01/2023 12:31 PM EDT Height 162.6 cm (5' 4") 08/01/2023 12:31 PM EDT Body Mass Index 19.74 08/01/2023 12:31 PM EDT documented in this encounter Functional [...] Progress Notes * Foster Zuniga MD - 08/02/2023 3:02 PM EDT SUBJECTIVE: Sharmin Jackson is a 78 year old female. Chief Complaint Patient presents with Hospital Follow-Up Pt here for hospital follow up Hospital Follow-Up Recent Admission: Patient was recently admitted to [facility]. Discharge report received and reviewed. HPI: here with for hospital follow up. She had aspiration pneumonia due to complications with her feeding tube. Additionally was found to be in a-fib and started on anticoagulation by cardiology. Unfortunately she has fallen out of regular follow up with cardiology due to some ongoing staffing issues in their department, so as of today there is no follow up with them scheduled yet. I am going to have to work on that. She and her declined home health. GI manages her feeding tube.She also continues to get left breast cellulitis. We are going to check a diagnostic mammogram to ensure her breast cancer has not returned. Patient Active Problem List Diagnosis Code History [...] directed via G tube via bolus syringe 28009 mL 11 Apixaban 2.5 MG Oral Tablet (Eliquis) 1 Tablet. Carvedilol 6.25 MG Oral Tablet (Coreg) 1 Tablet. Current Facility-Administered Medications Medication Dose Route Frequency Provider Last Rate Last Admin Denosumab (Prolia) subcut inj 60 mg 60 mg Subcutaneous Q6 Months Cr Gill PA-C 60 mg at 07/11/23 1315 Current and discharge medications have been reconciled. 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 I spent a total of 30-39 minutes (exact time 38 mins) minutes on the date of service in preparation, delivery, and documentation of the care provided to Sharmin Jackson excluding any time spent in performance of separately billed services. Foster Zuniga MD documented in this encounter Nursing Notes * Yumiko Adames LPN - 08/01/2023 12:31 PM EDT The patient has been properly identified by confirmation of name and date of . Chief Complaint Patient presents with Hospital Follow-Up Pt here for hospital follow up documented in this encounter Plan of Treatment Upcoming Encounters Date Type Department Care Team (Late st Contact Info) Description 08/07/2023 10:00 AM EDT Imaging Radiology [facility] 1st Floor, [place] 132 [facility] [place] [address] 08/07/2023 10:30 AM EDT Imaging Radiology [facility] [address] [facility] [place] [address] 09/03/2023 12:00 PM EDT Office Visit Gastroenterology, [facility] 132 [facility] [place] [address] Imtiaz Kinsey MD [address] [place] [address] 09/21/2023 3:00 PM EDT Office Visit Gynecology/[facility]stetrics [facility] [place] [address] Balbina Naik CRNP [address] [place] [address] 09/28/2023 1:30 PM EDT Office Visit Cardiology, [facility] 132 [facility] [place] [address] Allan Siddiqui PA-C 132 [facility] [place] [address] 11/27/2023 9:20 AM EDT Office Visit Family Practice [facility] 132 [facility] [place] [address] Foster Zuniga MD 132 [facility] [place] [address] 01/14/2024 1:30 PM EDT Nurse Only Rheumatology [address] [place] [address] Pf, Nurse Rheum [address] [place], [place] [address] [address] 06/23/2024 11:30 AM EST [facility] [address] [facility] [place] [address] 07/09/2024 11:30 AM EDT Office Visit Urology, [facility] 132 [facility] [place] [address] Spencer Kumari MD 27 [facility] [address] [place] [address] Scheduled Orders Name Type Priority Associated Diagnoses Orde r Schedule MAMMOGRAM DIAGNOSTIC KENZIE BILATERAL Medical Imaging Routine Hx of breast cancer Expected: 08/02/2023, Expires: 08/30/2024 Scheduled Referrals Name Type Priority Associated Diagnoses Orde r Schedule CARDIOLOGY REFERRAL OP Referral Within 10 days (routine) Paroxysmal atrial fibrillation (HCC) Ordered: 08/01/2023 Health Maintenance Due Date Last Done Comments [...] D LEVEL ONCE IN A LIFETIME-USE SMARTSET# [id number] Completed 06/27/2023, 01/10/2021, 09/25/2008 GARDASIL-HPV IMMUNIZATION SERIES [...] as of this encounter Visit Diagnoses Diagnosis Hospital discharge follow-up- Primary Other follow-up examination Hx of breast cancer Personal history of malignant neoplasm of breast Paroxysmal atrial fibrillation (HCC) Atrial fibrillation documented in this encounter Advance Directives Healthcare Agents on File Name Relationship Healthcare Agent Relationshi p Communication Cristobal Jackson Spouse Health Care Repr esentative (appointed verbally by patient or by statute hierarchy) Care Teams Chemistry Lab Instructor Relationship Specialty Start Date End Date Foster Zuniga MD [address] [place] [address] PCP - General Family Medicine 04/02/23 documented as of this encounter
--- NOTE | 2024-01-16 11:00 | Pulmonary Consultation ---
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 She has multifocal airspace opacities and evidence of aspiration on CT scan. She is improving with antibiotics. Recommendations: 1. Aspiration pneumonia: MRSA swab negative. Okay to discontinue vancomycin. She is never had resistant Pseudomonas so no indication for Invanz. Will discontinue and replace with Unasyn. Can likely de-escalate to liquid Augmentin once the patient's PEG tube has been accessed. Recommend therapy for 7 to 10 days. Events will likely recur as the patient's aspiration is not likely amenable to any therapy. The patient and her expressed understanding. Could consider pulmonary toilet with incentive spirometry and a flutter valve however I am unclear how efficacious that will be in this patient. No indication for bronchoscopy. 2. Hypoxemia: Secondary to #1. Patient shown significant improvement and is now satting 100% on nonrebreather. Decreased to 10 L and should be able to transition to nasal cannula shortly. May require supplemental oxygen at discharge 3. Consider repeating the CT scan in 8 to 12 weeks. If outpatient follow-up is required, the patient can follow-up with Dr. Tan in clinic. Thanks for the opportunity participating in the care of this patient. Pulmonary will sign off. Feel free to contact us with questions or concerns History of Present Illness Attending Physician: Sam Barajas MD History of Present Illness Asked by hospitalist to assist in evaluation management this patient with aspiration pneumonia and hypoxemic respiratory failure. History is obtained from discussion with the patient's at bedside as well as review the electronic medical record. The patient has difficulty speaking due to her prior ENT issues. The patient is a 78-year-old female with a prior history of squamous carcinoma of the tongue status post radiation. She has chronic aspiration has a PEG tube in place. She also had prior breast cancer. The patient's reports that she does not take anything p.o. Her feedings are all done through the PEG tube. She was brought to the emergency room early this morning with increasing shortness of breath. She initially was placed on BiPAP and is now been weaned to a nonrebreather. Her oxygen saturations are 100% on the nonrebreather. Her breathing appears comfortable. The reports prior history of aspiration events. In the emergency room the patient received vancomycin and Invanz. The patient has an advanced directive in place indicating no CPR, intubation, or mechanical ventilation Allergies Allergy/AdvReac Type Severity Reaction Status Date / Time Penicillins Allergy Mild Verified 09/21/21 13:54 Home Medications Medication Instructions Recorded Confirmed Type acetaminophen 160 mg/5 mL oral 640 mg feeding tube QID PRN Pain 09/21/21 01/16/24 History liquid (Children's Acetaminophen) nutritional supplement-fiber oral 2 ea feeding tube TID 09/21/21 01/16/24 History liquid levothyroxine 100 mcg tablet 100 mcg feeding tube DAILY 07/18/23 01/16/24 History carvedilol 6.25 mg tablet 6.25 mg PEG BIDM #60 tabs 07/27/23 01/16/24 Rx apixaban 2.5 mg tablet (Eliquis) 2.5 mg feeding tube BID 01/16/24 01/16/24 History Patient History Medical History Protein calorie malnutrition Oropharyngeal dysphagia Recurrent cellulitis 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 follows with [facility]" GERD (gastroesophageal reflux disease) Osteoporosis Hypothyroidism Dyslipidemia Sarcoidosis "s/p lung biopsy" Breast cancer "s/p lumpectomy and node dissection in 2004, radiation completed 2005, chemo [id number]" Tongue cancer "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" Surgical History S/P percutaneous endoscopic gastrostomy (PEG) tube placement H/O exploratory thoracotomy H/O partial mastectomy H/O endoscopy "with stricture, s/p dilation" Family History Mother Colon cancer Social History Smoking Status: Never smoker Hx Alcohol Use: No Hx Substance Use: No Preferred Language: Yemeni Communication Ability: Effective Rn Building Required: No Beliefs That Will Affect Care: None marital status: Current Living Situation: Spouse Feels Safe at Home: Yes Safety Concerns: Feels Safe At This Time Assistive Devices: Denture - Lower Review of Systems Review of Systems: Please refer to admission H&P. No additions or deletions Physical Exam Constitutional: Elderly kyphotic female in no obvious distress Neck: trachea midline, no thyromegaly Respiratory: no respiratory distress, no labored breathing, no cough and not tachypneic Auscultation: + rhonchi; no crackles and no wheezes Cardiovascular: RRR, no murmur, no edema Gastrointestinal (Abdomen): normal bowel sounds, soft, nontender, no hepatosplenomegaly Musculoskeletal: Extremities: extremities normal to inspection Skin: no rashes, warm and dry Lymphatic: no cervical lymphadenopathy Results & Data Results & Data Vital Signs (Past 12 Hours) Vital Signs Temp Pulse Pulse Resp BP BP Pulse Ox 01/16/24 08:15 67 20 155/76 H 100 01/16/24 08:00 64 18 134/65 100 01/16/24 07:30 108/52 L 01/16/24 07:15 60 18 121/57 L 100 01/16/24 06:40 61 18 137/60 99 01/16/24 06:30 68 18 99 01/16/24 06:30 137/60 01/16/24 06:30 137/60 01/16/24 06:19 01/16/24 06:19 36.8 C 70 18 147/72 H 98 01/16/24 06:15 78 19 99 01/16/24 06:15 147/72 H 01/16/24 06:15 147/72 H 01/16/24 06:09 76 18 99 01/16/24 06:00 148/71 H 01/16/24 05:57 73 19 92 01/16/24 05:53 146/76 H 01/16/24 05:53 146/76 H 01/16/24 05:52 36.8 C 72 18 146/76 H 99 01/16/24 05:52 01/16/24 05:42 71 19 99 01/16/24 05:30 135/69 01/16/24 05:27 76 22 96 01/16/24 05:21 74 23 97 01/16/24 04:45 152/80 H 01/16/24 04:39 84 17 100 01/16/24 04:30 70 17 97 01/16/24 04:30 136/65 01/16/24 04:06 60 22 96 01/16/24 03:45 122/68 01/16/24 03:45 122/68 01/16/24 03:39 67 19 95 01/16/24 03:30 67 20 94 01/16/24 03:30 114/71 01/16/24 03:30 114/71 01/16/24 03:30 114/71 01/16/24 03:15 67 21 95 01/16/24 03:15 116/64 01/16/24 03:15 116/64 01/16/24 03:09 64 21 93 01/16/24 03:00 121/69 01/16/24 03:00 64 18 121/69 95 01/16/24 02:59 68 01/16/24 02:58 77 24 98 01/16/24 02:57 63 19 93 01/16/24 02:45 62 19 93 01/16/24 02:45 105/75 01/16/24 02:30 112/78 01/16/24 02:21 66 18 95 01/16/24 02:15 121/67 01/16/24 02:09 62 19 94 01/16/24 01:01 68 20 118/74 98 01/15/24 23:36 70 26 H 89 L 01/15/24 23:24 72 01/15/24 23:20 70 22 129/67 88 L 01/15/24 23:14 71 22 90 01/15/24 23:00 82 L 01/15/24 22:58 37.1 C 73 22 138/72 92 Pulse Ox O2 Del Method O2 Del Method O2 Flow Rate FiO2 01/16/24 08:15 Non-rebreather 01/16/24 08:00 01/16/24 07:30 01/16/24 07:15 01/16/24 06:40 Non-rebreather 01/16/24 06:30 01/16/24 06:30 01/16/24 06:30 01/16/24 06:19 Non-rebreather 01/16/24 06:19 Non-rebreather 01/16/24 06:15 01/16/24 06:15 01/16/24 06:15 01/16/24 06:09 01/16/24 06:00 01/16/24 05:57 01/16/24 05:53 01/16/24 05:53 01/16/24 05:52 Non-rebreather 01/16/24 05:52 99 Non-rebreather 01/16/24 05:42 01/16/24 05:30 01/16/24 05:27 01/16/24 05:21 01/16/24 04:45 01/16/24 04:39 01/16/24 04:30 01/16/24 04:30 01/16/24 04:06 01/16/24 03:45 01/16/24 03:45 01/16/24 03:39 01/16/24 03:30 01/16/24 03:30 01/16/24 03:30 01/16/24 03:30 01/16/24 03:15 01/16/24 03:15 01/16/24 03:15 01/16/24 03:09 01/16/24 03:00 01/16/24 03:00 BiPAP 01/16/24 02:59 01/16/24 02:58 80 01/16/24 02:57 01/16/24 02:45 01/16/24 02:45 01/16/24 02:30 01/16/24 02:21 01/16/24 02:15 01/16/24 02:09 01/16/24 01:01 BiPAP 100 01/15/24 23:36 100 01/15/24 23:24 01/15/24 23:20 Non-rebreather 01/15/24 23:14 Non-rebreather 01/15/24 23:00 Oxymask, Non-rebreather 01/15/24 22:58 Non-rebreather 13 Critical Care Results & Data Vital Signs (Past 12 Hours) Vital Signs Temp Pulse Pulse Resp BP BP Pulse Ox 01/16/24 08:15 67 20 155/76 H 100 01/16/24 08:00 64 18 134/65 100 01/16/24 07:30 108/52 L 01/16/24 07:15 60 18 121/57 L 100 01/16/24 06:40 61 18 137/60 99 01/16/24 06:30 68 18 99 01/16/24 06:30 137/60 01/16/24 06:30 137/60 09/18/24 06:19 01/16/24 06:19 36.8 C 70 18 147/72 H 98 01/16/24 06:15 78 19 99 01/16/24 06:15 147/72 H 01/16/24 06:15 147/72 H 01/16/24 06:09 76 18 99 01/16/24 06:00 148/71 H 01/16/24 05:57 73 19 92 01/16/24 05:53 146/76 H 01/16/24 05:53 146/76 H 01/16/24 05:52 36.8 C 72 18 146/76 H 99 01/16/24 05:52 01/16/24 05:42 71 19 99 01/16/24 05:30 135/69 01/16/24 05:27 76 22 96 01/16/24 05:21 74 23 97 01/16/24 04:45 152/80 H 01/16/24 04:39 84 17 100 01/16/24 04:30 70 17 97 01/16/24 04:30 136/65 01/16/24 04:06 60 22 96 01/16/24 03:45 122/68 01/16/24 03:45 122/68 01/16/24 03:39 67 19 95 01/16/24 03:30 67 20 94 01/16/24 03:30 114/71 01/16/24 03:30 114/71 01/16/24 03:30 114/71 01/16/24 03:15 67 21 95 01/16/24 03:15 116/64 01/16/24 03:15 116/64 01/16/24 03:09 64 21 93 01/16/24 03:00 121/69 01/16/24 03:00 64 18 121/69 95 01/16/24 02:59 68 01/16/24 02:58 77 24 98 01/16/24 02:57 63 19 93 01/16/24 02:45 62 19 93 01/16/24 02:45 105/75 01/16/24 02:30 112/78 01/16/24 02:21 66 18 95 01/16/24 02:15 121/67 01/16/24 02:09 62 19 94 01/16/24 01:01 68 20 118/74 98 01/15/24 23:36 70 26 H 89 L 01/15/24 23:24 72 01/15/24 23:20 70 22 129/67 88 L 01/15/24 23:14 71 22 90 01/15/24 23:00 82 L 01/15/24 22:58 37.1 C 73 22 138/72 92 Pulse Ox O2 Del Method O2 Del Method O2 Flow Rate FiO2 01/16/24 08:15 Non-rebreather 01/16/24 08:00 01/16/24 07:30 01/16/24 07:15 01/16/24 06:40 Non-rebreather 01/16/24 06:30 01/16/24 06:30 01/16/24 06:30 01/16/24 06:19 Non-rebreather 01/16/24 06:19 Non-rebreather 01/16/24 06:15 01/16/24 06:15 01/16/24 06:15 01/16/24 06:09 01/16/24 06:00 01/16/24 05:57 01/16/24 05:53 01/16/24 05:53 01/16/24 05:52 Non-rebreather 01/16/24 05:52 99 Non-rebreather 01/16/24 05:42 01/16/24 05:30 01/16/24 05:27 01/16/24 05:21 01/16/24 04:45 01/16/24 04:39 01/16/24 04:30 01/16/24 04:30 01/16/24 04:06 01/16/24 03:45 01/16/24 03:45 01/16/24 03:39 01/16/24 03:30 01/16/24 03:30 01/16/24 03:30 01/16/24 03:30 01/16/24 03:15 01/16/24 03:15 01/16/24 03:15 01/16/24 03:09 01/16/24 03:00 01/16/24 03:00 BiPAP 01/16/24 02:59 01/16/24 02:58 80 01/16/24 02:57 01/16/24 02:45 01/16/24 02:45 01/16/24 02:30 01/16/24 02:21 01/16/24 02:15 01/16/24 02:09 01/16/24 01:01 BiPAP 100 01/15/24 23:36 100 01/15/24 23:24 01/15/24 23:20 Non-rebreather 01/15/24 23:14 Non-rebreather 15 01/15/24 23:00 Oxymask, Non-rebreather 15 01/15/24 22:58 Non-rebreather 13 Lab & Micro Results (Past 24 Hours) RBC 3.63 M/uL (4.20-5.40) L 01/16/24 WBC 7.56 K/ul (4.8-10.8) 01/16/24 Hgb 11.1 g/dl (12.0-16.0) L 01/16/24 Hct 33.3 % (37.0-47.0) L 01/16/24 MCV 91.7 fL (80.0-100.0) 01/16/24 MCH 30.6 pg (25.0-34.0) 01/16/24 MCHC 33.3 g/dL (32.0-36.0) 01/16/24 RDW Standard Deviation 51.1 fL (36.4-46.3) H 01/16/24 RDW Coefficient of Variation 15.1 % (11.5-14.5) H 01/16/24 Plt Count 101 K/uL (130-400) L 01/16/24 MPV 13.0 fL (9.4-12.4) H 01/16/24 Neutrophils (%) (Auto) 88.2 % 01/16/24 Lymphocytes (%) (Auto) 6.1 % 01/16/24 Monocytes # (Auto) 0.39 K/uL (0.11-0.59) 01/16/24 Eosinophils # (Auto) 0.00 K/uL (0.00-0.50) 01/16/24 Immature Granulocyte % (Auto) 0.4 % 01/16/24 Neutrophils # (Auto) 6.67 K/uL (1.40-6.50) H 01/16/24 Lymphocytes # (Auto) 0.46 K/uL (1.20-3.40) L 01/16/24 Monocytes # (Auto) 0.39 K/uL (0.11-0.59) 01/16/24 Eosinophils # (Auto) 0.00 K/uL (0.00-0.50) 01/16/24 Basophils # (Auto) 0.01 K/uL (0.00-0.20) 01/16/24 Immature Granulocyte # (Auto) 0.03 K/uL (0.01-0.20) 4 Na 143 mmol/L (136-145) 01/16/24 K 3.6 mmol/L (3.5-5.1) 01/16/24 Cl 109 mmol/L (98-107) H 01/16/24 CO2 27 mmol/L (21-32) 01/16/24 Anion Gap 7 (3-11) 01/16/24 BUN 33 mg/dl (6-23) H 01/16/24 Creatinine 0.77 mg/dl (0.6-1.2) 01/16/24 Estimated GFR ( Amer) 85.1 ml/min 01/16/24 Estimated GFR (Non-Af Amer) 73.4 ml/min 01/16/24 BUN/Creatinine Ratio 42.9 (10-20) H 01/16/24 Glu 135 mg/dl (70-99(Fasting)) H 01/16/24 Ca 8.4 mg/dl (8.6-10.3) L 01/16/24 Total Bilirubin 1.9 mg/dl (0.2-1.0) H 01/15/24 AST 31 U/L (13-39) 01/15/24 ALT 19 U/L (7-52) 01/15/24 Alkaline Phosphatase 71 U/L (34-104) 01/15/24 TP 7.6 gm/dl (6.0-8.3) 01/15/24 Albumin 4.1 gm/dl (3.4-5.0) 01/15/24 Globulin 3.5 gm/dl (2.5-4.0) 01/15/24 Albumin/Globulin Ratio 1.2 (0.9-2) 01/15/24 Mg 1.9 mg/dl (1.7-2.4) 01/16/24 06:55 Calcium Level 8.4 mg/dl (8.6-10.3) L 01/16/24 06:55 Venous Blood pH 7.39 (7.36-7.41) 01/15/24 23:19 Venous Blood Partial Pressure CO2 47 mmHg (38-50) 01/15/24 23:1 9 Venous Blood Partial Pressure O2 31 mmHg 01/15/24 23:19 Venous Blood HCO3 29 mmol/L 01/15/24 23:19 Venous Blood Base Excess 2.8 mEq/L 01/15/24 23:19 Venous Blood Oxygen Saturation < 60.0 % 01/15/24 23:19 Diagnostic Findings (Past 24 Hours) Chest X-Ray 01/15/24 23:02 XR chest 1V portable CLINICAL HISTORY: Chest pain, nonspecific COMPARISON STUDY: Chest CT July 18, 2023. Chest radiograph July 24, 2023. FINDINGS: No pneumothorax or effusion. Right lower lung consolidation is present. There is no consolidation within the left lung. Pulmonary vascularity is normal. Cardiomediastinal silhouette is stable. IMPRESSION: Right lower lung consolidation suggestive of pneumonia. Post treatment radiographs to ensure resolution are recommended. ACT 112: Negative or not required by law. Electronically signed by: Eloy Green M.D. 01/16/2024 7:03 AM Chest CTA 01/16/24 04:12 Exam(s): CTA CHEST IV Amt: 118 ML OPTIRAY 320 EXAM: CT Angiography Chest With Intravenous Contrast CLINICAL HISTORY: PE. TECHNIQUE: Axial computed tomographic angiography images of the chest with intravenous contrast. MIPS images were created and reviewed. CTDI is 15. 21 mGy and DLP is 502.42 mGy-cm. Automated exposure control was utilized for the study. A dose lowering technique was utilized adhering to the principles of ALARA. MIP reconstructed images were created and reviewed. COMPARISON: CTA chest 07/18/2023 FINDINGS: Pulmonary arteries: Unremarkable. No pulmonary embolus. Aorta: There is ectasia of the ascending aorta measuring 3.6 cm. Mild atherosclerosis. No thoracic aortic aneurysm. Lungs: Airspace opacities of the right middle and lower lobes is concerning for multifocal pneumonia and/or aspiration. Filling defects of the bronchi of the right lower lobe may represent mucous plugs and/or aspiration. Pleural space: Unremarkable. No significant effusion. No pneumothorax. Heart: Dilated atrium. Coronary artery calcifications are present. No cardiomegaly. No significant pericardial effusion. No evidence of RV dysfunction. Bones/joints: There are degenerative changes of the spine. No acute fracture. No dislocation. Soft tissues: Unremarkable. Lymph nodes: Unremarkable. No enlarged lymph nodes. IMPRESSION: 1. No pulmonary embolus. 2. Filling defects of the bronchi of the right lower lobe may represent mucous plugs and/or aspiration. 3. Airspace opacities of the right middle and lower lobes is concerning for multifocal pneumonia and/or aspiration. 4. 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 Electronically signed by: Norah Arroyo MD 01/16/24 06:48 AM I & O Totals 24 Hours 01/15/24 01/16/24 01/17/24 06:59 06:59 06:59 Intake Total 770 / 770 275 / 275 Output Total 150 / 150 Balance 620 / 620 275 / 275 Cumulative 01/15/24 22:24 thru 01/16/24 07:43 Intake Total 1045 Output Total 150 Balance 895 RT Ventilator Mngmt (Last Documented) Ventilator Ordered Settings Respiratory Rate 20 01/16/24 08:15 Fraction of Inspired Oxygen 80 01/16/24 02:58 Ventilator - PT Measurements Respiratory Rate 20 PG Care Time/CCT Total # of Minutes Spent Total Time Spent with Patient: Total time spent is greater than 50% in coordination of care (as documented) at patient's floor/unit and/or counseling patient: Coding Level of Care Code 63036 INT INP/OBS CARE 3/75MIN Diagnoses Acute hypoxic respiratory failure J96.01 Aspiration pneumonia J69.0
[2024-01-16] MEDS ORDERED: FIBERSOURCE HN 1.2 CAL 1000 ML BAG GT SCH (11:30)
[2024-01-16] MEDS: AMPICILLIN/SULBACTAM SOD 3,000 MG/100 ML BAG IV SCH (13:17)
[2024-01-16] MEDS: ondansetron HCL 6 MG in DEXTROSE 5% 50 ML IV PRN (14:55)
[2024-01-16] MEDS: TUBE FEEDING WATER FLUSH GT SCH (16:30)
--- NOTE | 2024-01-16 17:42 | Hospitalist Progress Note ---
Date of Service January 16, 2024 Assessment & Plan (1) Acute hypoxic respiratory failure: Plan: (1) Acute hypoxic respiratory failure: Plan: 78-year-old female with past med history significant for left breast cancer status post partial mastectomy 2004, history of lateral squamous cell tongue cancer s/p radiation with PEG tube placement, hypothyroidism, age-related osteoporosis, history of sarcoidosis, history of paroxysmal atrial fibrillation, hypothyroidism, history of pleural effusion, history of kidney stones, history of overactive bladder comes from home with shortness of breath. She is a currently requiring BiPAP in the ER. in the room. states her shortness of breath started today. Has some cough. Has weakness. No fevers. Patient denies any headache. Denies chest pain. Denies nausea. Denies abdominal pain. Patient gets all nutrition from PEG tube. Ambulates without support at home as per . states patient had tongue cancer and when she talks it somewhat difficult to understand her. Currently saturating okay on BiPAP and hemodynamics are okay.Answering by nodding her head. helped with H&P. Acute hypoxic respiratory failure, Aspiration Pneumonia Follow CT chest Empiric Vanco and Invanz Currently requiring BiPAP Gentle fluids Nebs as needed 01/16 Remains on 10 l of oxygen by OxyMask Continue antibiotics Add hypertonic saline, Protonix IV twice daily Continue to wean off O2 Monitor closely 01/17 Remains on 10 L Will order incentive spirometry, and flutter valve Continue IV antibiotics, hypertonic saline nebs, Protonix IV 01/18 On 8 L Continue sinus parameter, flutter valve Continue IV antibiotics, hypertonic saline nebs, Protonix IV 01/19 Desaturated in the 86, 87% in the afternoon Patient denies having changes with her breathing Repeat chest x-ray: Slight worsening of right mid to lower lobe pneumonia Lasix 20 mg IV, Solu-Medrol 40 mg IV, Xopenex stat treatment Discussed with respiratory therapist, will transition to high flow oxygen therapy Encouraged to use incentive spirometry and flutter valve Continue to monitor closely Hypernatremia D5 water Increased free water flushes Nephrology service consulted Na 138 Hold free water flushes, possible volume overload contributing to hypoxia History of squamous cell carcinoma of tongue S/p radiation N.p.o. S/p PEG tube Nutrition and meds via PEG tube 01/17 Continues tube feeding in progress No issues per RN 01/18 Tube feeding placed on hold due to emesis this morning Dietitian notified, recommend to resume tube feeding at lower rate late this afternoon, KUB ordered 01/19 tube feeding resumed with slower rate History of left breast cancer Status post partial mastectomy A-fib, RVR Transition from Coreg to metoprolol and diltiazem drip Already on Eliquis Cardiology consulted Heart rate improved to 90s check TSH 6.3 , check free t4: Normal Hypothyroidism On Synthyroid DVT prophylaxis On Eliquis CODE STATUS DNR/DNI as per my discussion patient and . Disposition Telemetry Admission and Anticipated Discharge Date Admission Date: January 16, 2024 Subjective Seen in the morning, comfortable, sitting up States she feels fine overall No abdominal pain, no nausea, positive large bowel movements yesterday Breathing is about the same, no shortness of breath on exam Has intermittent dry cough Review of Systems Review of Systems: all noted and negative except for above Physical Exam Physical Exam: General- oriented x 3, not in distress, speaks in sentences with no effort or accessory muscle use Eyes- anicteric Neck- no JVD Lungs- (+) mild rhonchi R lung pak Heart- normal rate, regular rhythm; no murmurs Abdomen- normal bowel sounds, nondistended, soft, nontender Extremities- no pretibial edema, no calf tenderness Neuro- alert, oriented x 3; no gross focal neurologic deficits Skin- warm & dry Results & Data Results & Data Vital Signs (Past 12 Hours) Vital Signs Temp Pulse Pulse Resp BP BP Pulse Ox 01/16/24 15:00 74 17 141/92 H 96 01/16/24 14:45 74 17 155/85 H 92 01/16/24 13:00 70 18 144/79 H 98 01/16/24 12:00 69 22 146/87 H 99 01/16/24 11:24 75 18 144/77 H 100 01/16/24 10:00 79 20 148/72 H 99 01/16/24 09:00 73 20 132/73 100 01/16/24 08:15 67 20 155/76 H 100 01/16/24 08:00 64 18 134/65 100 01/16/24 07:30 108/52 L 01/16/24 07:15 60 18 121/57 L 100 01/16/24 06:40 61 18 137/60 99 01/16/24 06:30 68 18 99 01/16/24 06:30 137/60 01/16/24 06:30 137/60 01/16/24 06:19 01/16/24 06:19 36.8 C 70 18 147/72 H 98 01/16/24 06:15 78 19 99 01/16/24 06:15 147/72 H 01/16/24 06:15 147/72 H 01/16/24 06:09 76 18 99 01/16/24 06:00 148/71 H 01/16/24 05:57 73 19 92 01/16/24 05:53 146/76 H 01/16/24 05:53 146/76 H 01/16/24 05:52 36.8 C 72 18 146/76 H 99 01/16/24 05:52 Pulse Ox O2 Del Method O2 Del Method O2 Flow Rate 01/16/24 15:00 01/16/24 14:45 01/16/24 13:00 01/16/24 12:00 01/16/24 11:24 01/16/24 10:00 01/16/24 09:00 Non-rebreather 01/16/24 08:15 Non-rebreather 01/16/24 08:00 01/16/24 07:30 01/16/24 07:15 01/16/24 06:40 Non-rebreather 01/16/24 06:30 01/16/24 06:30 01/16/24 06:30 01/16/24 06:19 Non-rebreather 01/16/24 06:19 Non-rebreather 01/16/24 06:15 01/16/24 06:15 01/16/24 06:15 01/16/24 06:09 01/16/24 06:00 01/16/24 05:57 01/16/24 05:53 01/16/24 05:53 01/16/24 05:52 Non-rebreather 01/16/24 05:52 99 Non-rebreather all noted and reviewed including below
--- NOTE | 2024-01-17 06:08 | Electrocardiogram Report ---
Test Reason : Blood Pressure : */* mmHG Vent. Rate : 74 BPM Atrial Rate : 74 BPM P-R Int : 222 ms QRS Dur : 90 ms QT Int : 438 ms P-R-T Axes : 60 -49 39 degrees QTcB Int : 486 ms Poor data quality, interpretation may be adversely affected Sinus rhythm with sinus arrhythmia with 1st degree A-V block Left anterior fascicular block Moderate voltage criteria for LVH, may be normal variant ( R in aVL , [place] product ) Cannot rule out Anterior infarct , age undetermined Abnormal ECG When compared with ECG of 21-Jul-2023 10:33, No significant change was found Confirmed by Mark Ojeda ([id number]) on 01/17/2024 6:08:35 AM Referred By: REFERRED SELF Confirmed By: Mark Ojeda
[2024-01-17 09:38] LABS: Hematocrit (blood only) 35.9 % (37.0-47.0); Hemoglobin 11.7 g/dl (12.0-16.0); Mean Corpuscular Hemoglobin 30.2 pg (25.0-34.0); Mean Corpuscular Hgb Conc 32.6 g/dL (32.0-36.0); Mean Corpuscular Volume 92.8 fL (80.0-100.0); Mean Platelet Volume 13.1 fL (9.4-12.4); Platelet Count 101 K/uL (130-400); RDW Coefficient of Variation 15.4 % (11.5-14.5); RDW Standard Deviation 52.5 fL (36.4-46.3); Red Blood Count 3.87 M/uL (4.20-5.40); White Blood Count 9.44 K/ul (4.8-10.8)
[2024-01-17 09:47] LABS: BUN Creatinine Ratio 45.5 (10-20); Creatinine Clr Calc Pharmacy 67.6 ml/min; Est GFR (African American) 103.4 ml/min; Est GFR (Non-African American) 89.2 ml/min; Potassium 3.2 mmol/L (3.5-5.1)
[2024-01-17 09:55] LABS: Basophils # (auto) 0.03 K/uL (0.00-0.20); Basophils % (auto) 0.3 %; Dohle Bodies 1+; Immature Granulocytes # (auto) 0.04 K/uL (0.01-0.20); Immature Granulocytes % (auto) 0.4 %; Lymphocytes # (auto) 0.45 K/uL (1.20-3.40); Lymphocytes % (auto) 4.8 %; Monocytes # (auto) 0.35 K/uL (0.11-0.59); Monocytes % (auto) 3.7 %; Neutrophils # (auto) 8.57 K/uL (1.40-6.50); Neutrophils % (auto) 90.8 %
[2024-01-17] MEDS: METOPROLOL TARTRATE 1 MG/ML VIAL IV STA (10:30)
--- NOTE | 2024-01-17 14:44 | Electrocardiogram Report ---
Test Reason : Blood Pressure : */* mmHG Vent. Rate : 116 BPM Atrial Rate : 125 BPM P-R Int : * ms QRS Dur : 94 ms QT Int : 366 ms P-R-T Axes : * -53 76 degrees QTcB Int : 508 ms Atrial fibrillation with rapid ventricular response Incomplete right bundle branch block Left anterior fascicular block Diffuse Minor Nonspecific T wave abnormality ST depression in Anterolateral leads Abnormal ECG When compared with ECG of 15-Jan-2024 22:53, Atrial fibrillation has replaced Sinus rhythm Vent. rate has increased by 42 bpm Incomplete right bundle branch block is now Present ST depression in Anterolateral leads now present Confirmed by Foster Vela ([id number] on 01/17/2024 2:43:25 PM Referred By: REFERRED SELF Confirmed By: Foster Vela
[2024-01-17 17:07] LABS: Magnesium 2.1 mg/dl (1.7-2.4)
[2024-01-17] MEDS: METOPROLOL TARTRATE 1 MG/ML VIAL IV PRN (17:10)
[2024-01-17] MEDS: DEXTROSE 5% 500 ML IV SCH (17:10)
--- NOTE | 2024-01-17 17:14 | Hospitalist Progress Note ---
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 She is a currently requiring BiPAP in the ER. in the room. states her shortness of breath started today. Has some cough. Has weakness. No fevers. Patient denies any headache. Denies chest pain. Denies nausea. Denies abdominal pain. Patient gets all nutrition from PEG tube. Ambulates without support at home as per . states patient had tongue cancer and when she talks it somewhat difficult to understand her. Currently saturating okay on BiPAP and hemodynamics are okay.Answering by nodding her head. helped with H&P. Acute hypoxic respiratory failure, Aspiration Pneumonia Follow CT chest Empiric Vanco and Invanz Currently requiring BiPAP Gentle fluids Nebs as needed 01/16 Remains on 10 l of oxygen by OxyMask Continue antibiotics Add hypertonic saline, Protonix IV twice daily Continue to wean off O2 Monitor closely History of squamous cell carcinoma of tongue S/p radiation N.p.o. S/p PEG tube Nutrition and meds via PEG tube 01/16 Continues tube feeding in progress No issues per RN History of left breast cancer Status post partial mastectomy A-fib On Coreg and Eliquis Hypothyroidism On Synthyroid DVT prophylaxis On Eliquis CODE STATUS DNR/DNI as per my discussion patient and . Disposition Telemetry Admission and Anticipated Discharge Date Admission Date: January 16, 2024 Subjective ff up for aspiration PNA, acute hypoxic respiratory Failure, etc. Seen resting in bed, sitting up, on 2 L of O2 States she feels so-so Breathing is about the same, but no active shortness of breath on exam Denies chest pain, Has some abdominal discomfort but tube feeding has been going well as per RN No nausea or vomiting Review of Systems Review of Systems: all noted and negative except for above Physical Exam Physical Exam: General- oriented x 3, not in distress, speaks in sentences with no effort or accessory muscle use Eyes- anicteric Neck- no JVD Lungs- (+) Rhonchi in the right lung pak, clear on the left, no wheezing Heart- normal rate, regular rhythm; no murmurs Abdomen- normal bowel sounds, nondistended, soft, nontender Extremities- no pretibial edema, no calf tenderness Neuro- alert, oriented x 3; no gross focal neurologic deficits Skin- warm & dry Results & Data Results & Data Vital Signs (Past 12 Hours) Vital Signs Temp Pulse Pulse Resp BP BP Pulse Ox 01/17/24 15:17 36.6 C 120 H 19 117/75 92 01/17/24 10:39 125 H 140/72 01/17/24 10:30 116 H 148/70 H 01/17/24 07:25 36.5 C 71 19 153/72 H 99 01/17/24 07:00 64 O2 Del Method O2 Flow Rate 01/17/24 15:17 Oxymask 01/17/24 10:39 01/17/24 10:30 01/17/24 07:25 Oxymask 01/17/24 07:00 all noted and reviewed including below
[2024-01-17] MEDS: POTASSIUM CHLORIDE 20 MEQ/15 ML UDC PEG STA (18:12)
[2024-01-17] MEDS: POTASSIUM CHLORIDE 20 MEQ/15 ML UDC PEG SCH (18:12)
[2024-01-17] MEDS: SODIUM CHLOR 7% 4 ML NEB NEB SCH (19:41)
[2024-01-17] MEDS: PANTOprazole 40 MG in SYRINGE 0 ML IV SCH (20:28)
[2024-01-18 07:34] LABS: Hematocrit (blood only) 35.7 % (37.0-47.0); Hemoglobin 11.7 g/dl (12.0-16.0); Mean Corpuscular Hemoglobin 30.1 pg (25.0-34.0); Mean Corpuscular Hgb Conc 32.8 g/dL (32.0-36.0); Mean Corpuscular Volume 91.8 fL (80.0-100.0); Mean Platelet Volume 13.2 fL (9.4-12.4); Platelet Count 108 K/uL (130-400); RDW Coefficient of Variation 15.1 % (11.5-14.5); RDW Standard Deviation 50.8 fL (36.4-46.3); Red Blood Count 3.89 M/uL (4.20-5.40); White Blood Count 8.07 K/ul (4.8-10.8)
[2024-01-18 07:46] LABS: Albumin Globulin Ratio 0.9 (0.9-2); Bilirubin,Total 1.2 mg/dl (0.2-1.0); Calcium 8.7 mg/dl (8.6-10.3); Est GFR (African American) 106.7 ml/min; Est GFR (Non-African American) 92.1 ml/min; Globulin 3.2 gm/dl (2.5-4.0); Potassium 3.3 mmol/L (3.5-5.1); Total Protein 6.2 gm/dl (6.0-8.3)
[2024-01-18] MEDS: D5NSS + 20MEQ KCL 20 MEQ/1,000 ML BAG IV SCH (08:55)
[2024-01-18 09:00] LABS: Magnesium 1.8 mg/dl (1.7-2.4)
[2024-01-18] MEDS ORDERED: STAT IV Infusion **Titration per Protocol STA (09:01)
[2024-01-18] MEDS: POTASSIUM CHLORIDE 20 MEQ/15 ML UDC PO STA (09:13)
--- NOTE | 2024-01-18 09:17 | Cardiology Consultation ---
Date of Consultation January 18, 2024 Assessment & Plan (1) Atrial fibrillation with RVR: (2) Atrial flutter: * EKG performed 01/17/2024 at 10:27 AM and interpreted independently reveals atrial fibrillation versus flutter at 116 bpm. Mild nonspecific repolarization abnormalities noted. Compared to the previous dated 01/15/2024 atrial fibrillation has replaced sinus rhythm and the ventricular rate has increased by 42 bpm. * Potassium supplementation already ordered by Dr Barajas * Presentation similar to that which occurred in June,, and atrial arrhythmias likely acutely worse in the setting of exacerbation of lung disease with multifocal pneumonia * Discontinue carvedilol in favor of short-term treatment with metoprolol tartrate 25 mg via PEG tube 4 times daily * Add diltiazem infusion * Continue Eliquis for stroke prophylaxis (2.5 mg daily given weight of less than 60 mg, and age of 78 which is very close to 79 years old) * No need for repeat echocardiogram at this time * Per review of recent and historical chest x-rays, the left pleural effusion noted in June appears to have resolved (3) Multifocal pneumonia: * Continue Unasyn and oxygen Plan DVT prophylaixs: on Eliquis for AF. Addendum: Telemetry reassessed after starting IV diltiazem. Ventricular rates down to the 80s, appears to have irregular R to R interval on telemetry now that rate is slower consistent with atrial fibrillation rather than flutter. History of Present Illness Attending Physician: Sam Barajas MD History of Present Illness Sharmin Jackson is a 78 year old female seen in cardiology consultation per the request of Dr Barajas for the evaluation of atrial fibrillation with rapid ventricular response. Patient admitted via the ED on 01/16/24 with respiratory distress. Required BiPap support in the ED. Yesterday, patient converted from sinus rhythm to atrial fibrillation / flutter with rapid ventricular rate on 01/17/24 at 9:24 am. Rate have persistently been in the 120s despite doses of IV metoprolol. Has significant oxygen requirement and is on an Oxymask at 10 L/min during my assessment. Denies chest pain or subjective palpitations. No acute distress. Past medical history: 1.Coronary artery calcification per CT scan 08/2022 2.History of atypical chest discomfort a.Exercise stress echo negative for ischemia 11/2020 at low workload 3.Hx breast carcinoma s/p left partial mastectomy 4.Hx of tongue cancer, status post radiation, 1999- utilizes a PEG tube for nutrition Allergies Allergy/AdvReac Type Severity Reaction Status Date / Time Penicillins Allergy Mild Verified 09/21/21 13:54 Home Medications Medication Instructions Recorded Confirmed Type acetaminophen 160 mg/5 mL oral 640 mg feeding tube QID PRN Pain 09/21/21 01/16/24 History liquid (Children's Acetaminophen) nutritional supplement-fiber oral 2 ea feeding tube TID 09/21/21 01/16/24 History liquid levothyroxine 100 mcg tablet 100 mcg feeding tube DAILY 07/18/23 01/16/24 History carvedilol 6.25 mg tablet 6.25 mg PEG BIDM #60 tabs 07/27/23 01/16/24 Rx apixaban 2.5 mg tablet (Eliquis) 2.5 mg feeding tube BID 01/16/24 01/16/24 History Patient History Medical History Protein calorie malnutrition Oropharyngeal dysphagia Recurrent cellulitis 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 follows with [place] neurosurgery" GERD (gastroesophageal reflux disease) Osteoporosis Hypothyroidism Dyslipidemia Sarcoidosis "s/p lung biopsy" Breast cancer "s/p lumpectomy and node dissection in 2004, radiation completed 2005, chemo [id number]" Tongue cancer "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" Surgical History S/P percutaneous endoscopic gastrostomy (PEG) tube placement H/O exploratory thoracotomy H/O partial mastectomy H/O endoscopy "with stricture, s/p dilation" Family History Mother Colon cancer Social History Smoking Status: Never smoker Hx Alcohol Use: No Hx Substance Use: No Preferred Language: Polish Communication Ability: Effective Electric Sign Wirer Required: No Beliefs That Will Affect Care: None marital status: Current Living Situation: Spouse Feels Safe at Home: Yes Assistive Devices: None Review of Systems Review of Systems: Other (acute illness) Physical Exam Constitutional: + cachectic Eyes: PERRL, conjunctivae normal, anicteric sclerae Respiratory: Auscultation: + diminished lung sounds; no rales and no rhonchi Cardiovascular: Rate/Rhythm: regular rate and + tachycardic Heart Sounds: no murmur Extremities: no edema Gastrointestinal (Abdomen): normal bowel sounds, soft, nontender, no hepatosplenomegaly Neurologic: PERRL, EOMI, accommodation nl, no face palsy, no dysarthria Results & Data Vital Signs (Past 12 Hours) Vital Signs Temp Pulse Pulse Resp BP BP Pulse Ox 01/18/24 08:56 130 H 01/18/24 07:57 36.6 C 127 H 18 143/84 H 96 01/18/24 07:12 86 18 95 01/18/24 03:31 36.4 C L 126 H 18 147/98 H 96 01/17/24 23:42 36.5 C 120 H 16 123/83 92 01/17/24 21:49 01/17/24 21:39 128 H 01/17/24 21:31 116 H 01/17/24 21:16 130 H 159/99 H O2 Del Method O2 Flow Rate 01/18/24 08:56 01/18/24 07:57 Oxymask 01/18/24 07:12 Oxymask 10 01/18/24 03:31 Oxymask 10 01/17/24 23:42 Oxymask 10 01/17/24 21:49 Oxymask 10 01/17/24 21:39 01/17/24 21:31 01/17/24 21:16 Laboratory Results Cardiac Enzymes 01/18/24 Range/Units 06:56 AST 21 (13-39) U/L CBC 01/17/24 01/18/24 Range/Units 09:08 06:56 WBC 9.44 8.07 (4.8-10.8) K/ul RBC 3.87 L 3.89 L (4.20-5.40) M/uL Hgb 11.7 L 11.7 L (12.0-16.0) g/dl Hct 35.9 L 35.7 L (37.0-47.0) % Plt Count 101 L 108 L (130-400) K/uL Neut # (Auto) 8.57 H (1.40-6.50) K/uL Lymph # (Auto) 0.45 L (1.20-3.40) K/uL Porter # (Auto) 0.35 (0.11-0.59) K/uL Eos # (Auto) 0.00 (0.00-0.50) K/uL Baso # (Auto) 0.03 (0.00-0.20) K/uL Comprehensive Metabolic Panel 01/17/24 01/18/24 Range/Units 09:08 06:56 Sodium 147 H 149 H (136-145) mmol/L Potassium 3.2 L 3.3 L (3.5-5.1) mmol/L Chloride 111 H 113 H (98-107) mmol/L Carbon Dioxide 30 30 (21-32) mmol/L BUN 25 H 23 (6-23) mg/dl Creatinine 0.55 L 0.50 L (0.6-1.2) mg/dl Glucose 151 H 192 H (70-99(Fasting)) mg/dl Calcium 9.0 8.7 (8.6-10.3) mg/dl AST 21 (13-39) U/L ALT 15 (7-52) U/L Alkaline Phosphatase 68 (34-104) U/L Total Protein 6.2 (6.0-8.3) gm/dl Albumin 3.0 L (3.4-5.0) gm/dl Intake and Output 01/17/24 01/18/24 01/18/24 22:59 06:59 14:59 Intake Total 430 / 1743 1260 / 1743 Output Total 225 / 625 100 / 625 Balance 205 / 1118 1160 / 1118 Intake: IV 200 / 953 700 / 953 Ampicillin/Sulbactam Sod 3,000 200 / 400 200 / 400 mg In 100 ml @ 200 mls/hr IV Q6H NERY Rx#:[id number] Dextrose 5% 500 ml @ 60 mls/hr 500 / 500 IV .[id number] NERY Rx#:[id number] Tube Feeding 90 / 450 360 / 450 Tube Irrigant 140 / 340 200 / 340 Output: Urine Amount (Catheter) 225 / 625 100 / 625 External 225 / 625 100 / 625 Other: Other Intake Source npo npo # Bowel Movement Diapers 1 Weight 51.4 kg Weight Measurement Method Built in [facility] Viral respiratory panel is negative Summary of radiology report of CTA chest: 1. No pulmonary embolus. 2. Filling defects of the bronchi of the right lower lobe may represent mucous plugs and/or aspiration. 3. Airspace opacities of the right middle and lower lobes is concerning for multifocal pneumonia and/or aspiration. 4. 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 5. Coronary artery calcifications are present TTecho performed 07/24/23: Moderate concentric LVH LVEF 60-65% Grade II diastolic dysfunction Mild AV sclerosis without stenosis Mild TE No Pulm HTN moderate sized Left pleural effusion (2) Atrial flutter Atrial flutter type: unspecified Qualified Code(s): I48.92 - Unspecified atrial flutter
[2024-01-18] MEDS: dilTIAZem HCL 125 MG in DEXTROSE 5% 100 ML IV SCH (10:06)
[2024-01-18] MEDS: dilTIAZem HCl 5 MG/ML 5 ML VIAL IV STA (10:07)
[2024-01-18] MEDS: DEXTROSE 5% 1,000 ML IV SCH (12:01)
[2024-01-18] MEDS: TUBE FEEDING WATER FLUSH GT SCH (12:01)
--- NOTE | 2024-01-18 12:57 | Nephrology Consultation ---
Date of Consultation January 18, 2024 Assessment & Plan (1) Acute hypernatremia: hypernatremia by definition is free water deficit. she is currently getting 100 mL q.4 hours of water through the PEG tube-- that is only 600 mL per day. and the other fluid she is getting his D5 normal saline which is isotonic. since he is receiving isotonic fluid sodium has actually gone up from normal to 149. we will stop the isotonic D5 normal saline. will use hypotonic fluid D5 water at 100 mL/hour--- will stop After 2 L. increase the free water flushes to 150 mL Q 4 hour. next blood work can be in the morning. check renal panel and magnesium Continue tube feed. renal function is normal. (2) Acute hypoxic respiratory failure: (3) Aspiration pneumonia: the reason for admission is hypoxic respiratory failure secondary to multifocal pneumonia with aspiration. she is at very high risk for aspiration. currently on high oxygen as well as antibiotics. given this I do not want to push the free water fluid through the PEG tube too much. History of Present Illness Reason for Consultation: Hypernatremia Attending Physician: Sam Barajas MD History of Present Illness 78-year-old female who has a PEG tube for nutrition. 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 she presented to the hospital 2 days ago on January 15 with increasing shortness of breath and was noted to be hypoxic with respiratory failure. this is secondary to multifocal pneumonia with possible aspiration and she is being treated for same. even now she is requiring 10 L of oxygen. Sodium was normal on admission but since then has steadily gone up and is now 149. she is currently getting D5 normal saline and free water flush through the PEG tube. patient is very weak and frail and unable to give much history but was at the bedside. review of systems---- unable to obtain from the patient but as per the was at the bedside she has been feeling increasingly weak and was more short of breath prior to hospitalization also associated with cough nausea and generalized weakness. otherwise 12 systems reviewed and negative Physical examination elderly white female who appears to be very weak and frail she appears malnourished she is awake and alert but unable to give detailed history secondar y to shortness of breath. on 10 L oxygen mucous membrane is dry neck is supple no JVD chest bilateral decreased breath sound crackles and rhonchi bilaterally CVS S1 and S2 irregular soft systolic murmur heard abdomen is soft nontender peg tube in place extremity without edema. Allergies Allergy/AdvReac Type Severity Reaction Status Date / Time Penicillins Allergy Mild Verified 09/21/21 13:54 Home Medications Medication Instructions Recorded Confirmed Type acetaminophen 160 mg/5 mL oral 640 mg feeding tube QID PRN Pain 09/21/21 01/16/24 History liquid (Children's Acetaminophen) nutritional supplement-fiber oral 2 ea feeding tube TID 09/21/21 01/16/24 History liquid levothyroxine 100 mcg tablet 100 mcg feeding tube DAILY 07/18/23 01/16/24 History carvedilol 6.25 mg tablet 6.25 mg PEG BIDM #60 tabs 07/27/23 01/16/24 Rx apixaban 2.5 mg tablet (Eliquis) 2.5 mg feeding tube BID 01/16/24 01/16/24 History Patient History Family History Mother Colon cancer Social History Smoking Status: Never smoker Hx Alcohol Use: No Hx Substance Use: No Preferred Language: Yi Communication Ability: Effective Microbiological Analyst Required: No Beliefs That Will Affect Care: None marital status: Current Living Situation: Spouse Feels Safe at Home: Yes Assistive Devices: None Results & Data Vital Signs (Past 12 Hours) Vital Signs Temp Pulse Pulse Resp BP Pulse Ox O2 Del Method 01/18/24 11:14 36.7 C 80 19 102/62 91 Aerosol Mask 01/18/24 09:13 131 H 01/18/24 08:56 130 H 01/18/24 07:57 36.6 C 127 H 18 143/84 H 96 Oxymask 01/18/24 07:12 86 18 95 Oxymask 01/18/24 03:31 36.4 C L 126 H 18 147/98 H 96 Oxymask O2 Flow Rate 01/18/24 11:14 10 01/18/24 09:13 01/18/24 08:56 01/18/24 07:57 10 01/18/24 07:12 10 01/18/24 03:31 10 Laboratory Results reviewed CBC renal panel for the last few days Diagnostic Findings reviewed chest x-ray as well as CTA findings showing multifocal pneumonia and possible aspiration
[2024-01-18] MEDS: METOPROLOL TARTRATE 25 MG TAB PO SCH (15:21)
--- NOTE | 2024-01-18 18:52 | Hospitalist Progress Note ---
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 She is a currently requiring BiPAP in the ER. in the room. states her shortness of breath started today. Has some cough. Has weakness. No fevers. Patient denies any headache. Denies chest pain. Denies nausea. Denies abdominal pain. Patient gets all nutrition from PEG tube. Ambulates without support at home as per . states patient had tongue cancer and when she talks it somewhat difficult to understand her. Currently saturating okay on BiPAP and hemodynamics are okay.Answering by nodding her head. helped with H&P. Acute hypoxic respiratory failure, Aspiration Pneumonia Follow CT chest Empiric Vanco and Invanz Currently requiring BiPAP Gentle fluids Nebs as needed 01/16 Remains on 10 l of oxygen by OxyMask Continue antibiotics Add hypertonic saline, Protonix IV twice daily Continue to wean off O2 Monitor closely 01/17 Remains on 10 L Will order incentive spirometry, and flutter valve Continue IV antibiotics, hypertonic saline nebs, Protonix IV Hypernatremia D5 water Increased free water flushes Nephrology service consulted History of squamous cell carcinoma of tongue S/p radiation N.p.o. S/p PEG tube Nutrition and meds via PEG tube 01/17 Continues tube feeding in progress No issues per RN History of left breast cancer Status post partial mastectomy A-fib, RVR Transition from Coreg to metoprolol and diltiazem drip Already on Eliquis Cardiology consulted check TSH Hypothyroidism On Synthyroid DVT prophylaxis On Eliquis CODE STATUS DNR/DNI as per my discussion patient and . Disposition Telemetry Admission and Anticipated Discharge Date Admission Date: January 16, 2024 Subjective Follow-up for follow-up for aspiration pneumonia, acute hypoxic respiratory failure, etc. Seen resting in bed, comfortable, sitting up, on 10 L of O2 States that she feels about the same as yesterday Reports some shakiness of the upper extremities today No other new symptoms Review of Systems Review of Systems: all noted and negative except for above Physical Exam Physical Exam: General- oriented x 3, not in distress, speaks in sentences with no effort or accessory muscle use Eyes- anicteric Neck- no JVD Lungs-Mild rhonchi right lung pak, clear on the left No wheezing Heart- normal rate, regular rhythm; no murmurs Abdomen- normal bowel sounds, nondistended, soft, nontender Extremities- no pretibial edema, no calf tenderness No tremors Neuro- alert, oriented x 3; no gross focal neurologic deficits Skin- warm & dry Results & Data Results & Data Vital Signs (Past 12 Hours) Vital Signs Temp Pulse Pulse Resp BP Pulse Ox O2 Del Method 01/18/24 15:02 36.7 C 82 19 129/74 91 Oxymask 01/18/24 11:14 36.7 C 80 19 102/62 91 Aerosol Mask 01/18/24 09:13 131 H 01/18/24 08:56 130 H 01/18/24 07:57 36.6 C 127 H 18 143/84 H 96 Oxymask 01/18/24 07:12 86 18 95 Oxymask O2 Flow Rate 01/18/24 15:02 10 01/18/24 11:14 10 01/18/24 09:13 01/18/24 08:56 01/18/24 07:57 10 01/18/24 07:12 10 all noted and reviewed including below
[2024-01-18] MEDS: POTASSIUM CHLORIDE 20 MEQ/15 ML UDC PEG SCH (20:20)
[2024-01-19 07:30] LABS: BUN Creatinine Ratio 48.8 (10-20); Calcium 7.9 mg/dl (8.6-10.3); Est GFR (African American) 113.9 ml/min; Est GFR (Non-African American) 98.3 ml/min; Magnesium 1.7 mg/dl (1.7-2.4); Potassium 3.3 mmol/L (3.5-5.1)
[2024-01-19 07:45] LABS: Thyroid Stimulating Hormone 6.346 uIu/ml (0.300-4.500)
--- NOTE | 2024-01-19 08:33 | Cardiology Progress Note ---
Date of Service January 19, 2024 Assessment & Plan (1) Atrial fibrillation with RVR: (2) Multifocal pneumonia: Plan: * Continue Unasyn and oxygen Plan Assessment: 78 year old acutely ill female with A-fib with rVR in the setting of multifocal pneumonia. Plan: 1. Atrial fibrillation with RVR: -patient has responded well to IV cardizem infusion. Hesitant to start PO cardizem as she is actively vomiting. We will continue Cardizem gtt with plans to consider introducing PO transition tomorrow if needed. -rates 70-80's. -Euvolemic on exam. -Will continue metoprolol tartrate 25mg via PEG tube 4 times daily -Continue to monitor closely on telemetry -Continue reduced dose Eliquis 2.5mg BID for anticoagulation (Age and weight) -No repeat echo is needed 2. Multifocal pneumonia -Continued management per primary team and Pulm -Continue IV unasyn, nebulizers and supplemental O2 therapy Case has been discussed with Dr. Aguilar. Further recommendations regarding plan of care as per his assessment. I spent a total of 30 minutes on the date of service in preparation, delivery, documentation of the care provided to the patient excluding any time spent in the performance of separately billed services. CEASAR Linares [facility] Cardiology [facility] Admission and Anticipated Discharge Date Admission Date: January 16, 2024 Supervising Physician Co-Signing Physician Notes I have reviewed the advanced practitioner's documentation on the date of service referenced in note, and I agree with, and take responsibility for the plan of care. I spent a total of [15] minutes coordinating, documenting, and providing care for this patient excluding time spent in the performance of separately billed services or time spent by another provider. Subjective 01/19/2024:Patient seen and examined in follow up today. Feeling poorly. She is currently receiving parental nutrition, but had vomited prior to my arrival. Denies chest pain, pressure or palpitations. Denies shortness of breath, but remains on an Oxymask at 10LPM with sats in the low 90's. She is DNR/DNI Labs, vitals, diagnostics, telemetry and documentation reviewed. Telemetry reviewed showing A-fib rates 70-80's. currently on IV cardizem gtt Review of Systems Review of Systems: All systems reviewed & are unremarkable except as noted in HPI & below Physical Exam Constitutional: + ill appearing, + cachectic and + frail appearing; no acute distress ENMT: Ears: + hearing impairment Neck: normal visual inspection and trachea midline Respiratory: normal respiratory effort and + cough (weak, non-productive ); no respiratory distress and no labored breathing Auscultation: + diminished lung sounds and + wheezes; no crackles, no rales and no rhonchi Cardiovascular: Rate/Rhythm: + irregularly irregular Heart Sounds: normal S1 and normal S2; no murmur Vessels: dorsalis pedis pulses present; no JVD Extremities: no edema Skin: no rashes, warm and dry Psychiatric: Orientation: alert and oriented x 3 Affect: + flat affect Results & Data Vital Signs (Past 12 Hours) Vital Signs Temp Pulse Pulse Resp BP Pulse Ox O2 Del Method 01/19/24 08:09 36.6 C 107 H 17 127/68 92 Oxymask 01/19/24 07:13 18 90 Oxymask 01/19/24 05:00 01/19/24 02:33 36.4 C L 83 14 125/76 93 Oxymask 01/18/24 23:24 36.7 C 70 16 118/74 93 Oxymask 01/18/24 22:00 75 01/18/24 21:41 Oxymask O2 Del Method O2 Flow Rate O2 Flow Rate 01/19/24 08:09 9 01/19/24 07:13 9 01/19/24 05:00 Oxymask 8 01/19/24 02:33 10.0 01/18/24 23:24 10.0 01/18/24 22:00 01/18/24 21:41 8 Laboratory Results Comprehensive Metabolic Panel 01/19/24 Range/Units 06:41 Sodium 141 (136-145) mmol/L Potassium 3.3 L (3.5-5.1) mmol/L Chloride 107 (98-107) mmol/L Carbon Dioxide 28 (21-32) mmol/L BUN 20 (6-23) mg/dl Creatinine 0.41 L (0.6-1.2) mg/dl Glucose 203 H (70-99(Fasting)) mg/dl Calcium 7.9 L (8.6-10.3) mg/dl Intake and Output 09/21/24 09/21/24 09/21/24 06:59 14:59 22:59 Intake Total 883 / 2684 943.000 / 943.000 Output Total 125 / 300 350 / 350 Balance 758 / 2384 943.000 / 593.000 -350 / 593.000 Intake: IV 253 / 1739 943.000 / 943.000 Ampicillin/Sulbactam Sod 3,000 200 / 400 100 / 100 mg In 100 ml @ 200 mls/hr IV Q6H NERY Rx#:[id number] Dextrose 5% 1,000 ml @ 100 mls/ 718 / 718 hr IV .Q10H NERY Rx#:[id number] dilTIAZem HCL 125 mg In 125.000 / 125.000 Dextrose 5% 100 ml @ 5 MG/HR 5 mls/hr IV .Q24H NERY Rx#: [id number] ondansetron HCL 6 mg In 53 / 106 Dextrose 5% 50 ml @ 200 mls/hr IV Q6H PRN Rx#:[id number] Tube Feeding 330 / 495 Tube Irrigant 300 / 450 Output: Urine Amount (Catheter) 125 / 300 350 / 350 External 125 / 300 350 / 350 Other: Other Intake Source NPO NPO npo/sips/chips Weight 52.4 kg 52.4 kg Weight Measurement Method Built in [facility] Patient Weight 01/20/24 06:59 Weight 52.4 kg
[2024-01-19] MEDS: TUBE FEEDING WATER FLUSH GT SCH (16:53)
[2024-01-19] MEDS: FIBERSOURCE HN 1.2 CAL 1000 ML BAG GT SCH (16:53)
--- NOTE | 2024-01-19 17:14 | Hospitalist Progress Note ---
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 She is a currently requiring BiPAP in the ER. in the room. states her shortness of breath started today. Has some cough. Has weakness. No fevers. Patient denies any headache. Denies chest pain. Denies nausea. Denies abdominal pain. Patient gets all nutrition from PEG tube. Ambulates without support at home as per . states patient had tongue cancer and when she talks it somewhat difficult to understand her. Currently saturating okay on BiPAP and hemodynamics are okay.Answering by nodding her head. helped with H&P. Acute hypoxic respiratory failure, Aspiration Pneumonia Follow CT chest Empiric Vanco and Invanz Currently requiring BiPAP Gentle fluids Nebs as needed 01/16 Remains on 10 l of oxygen by OxyMask Continue antibiotics Add hypertonic saline, Protonix IV twice daily Continue to wean off O2 Monitor closely 01/17 Remains on 10 L Will order incentive spirometry, and flutter valve Continue IV antibiotics, hypertonic saline nebs, Protonix IV 01/18 On 8 L Continue sinus parameter, flutter valve Continue IV antibiotics, hypertonic saline nebs, Protonix IV Hypernatremia D5 water Increased free water flushes Nephrology service consulted Na 141 continue Free water flushes History of squamous cell carcinoma of tongue S/p radiation N.p.o. S/p PEG tube Nutrition and meds via PEG tube 01/17 Continues tube feeding in progress No issues per RN 01/18 Tube feeding placed on hold due to emesis this morning Dietitian notified, recommend to resume tube feeding at lower rate late this afternoon, KUB ordered History of left breast cancer Status post partial mastectomy A-fib, RVR Transition from Coreg to metoprolol and diltiazem drip Already on Eliquis Cardiology consulted Heart rate improved to 90s check TSH 6.3 , check free t4 Hypothyroidism On Synthyroid DVT prophylaxis On Eliquis CODE STATUS DNR/DNI as per my discussion patient and . Disposition Telemetry Admission and Anticipated Discharge Date Admission Date: January 16, 2024 Subjective Resting in bed, sitting up, on 8 L of O2 via OxyMask States she feels okay overall Breathing somewhat better than yesterday Reports abdominal bloating, tube feeding placed on hold Had 1 episode of emesis, small amount No other new symptom Review of Systems Review of Systems: all noted and negative except for above Physical Exam Physical Exam: General- oriented x 3, not in distress, speaks in sentences with no effort or accessory muscle use Eyes- anicteric Neck- no JVD Lungs- (+) crackles on the right lung clear on the left Heart- normal rate, regular rhythm; no murmurs Abdomen- normal bowel sounds, mild protuberance, soft, nontender Extremities- no pretibial edema, no calf tenderness Neuro- alert, oriented x 3; no new gross focal neurologic deficits Skin- warm & dry Results & Data Results & Data Vital Signs (Past 12 Hours) Vital Signs Temp Pulse Pulse Resp BP Pulse Ox O2 Del Method 01/19/24 16:01 36.6 C 87 17 129/70 91 Oxymask 01/19/24 11:23 36.7 C 85 17 146/67 H 89 L Oxymask 01/19/24 08:09 36.6 C 107 H 17 127/68 92 Oxymask 01/19/24 08:00 91 H 01/19/24 08:00 Oxymask 01/19/24 07:13 18 90 Oxymask O2 Flow Rate 01/19/24 16:01 10 01/19/24 11:23 10 01/19/24 08:09 9 01/19/24 08:00 01/19/24 08:00 8 01/19/24 07:13 9 all noted and reviewed including below
[2024-01-19 17:53] LABS: T4 Free Thyroxine 1.3 ng/dl (0.61-1.60)
[2024-01-19] MEDS: POTASSIUM CHLORIDE 20 MEQ/15 ML UDC PO STA (18:04)
--- NOTE | 2024-01-19 19:22 | XRay Report ---
KUB HISTORY: Acute onset abdominal pain abdominal pain, peg tube status COMPARISON: CT 07/18/2023 FINDINGS: Nonobstructive bowel gas pattern. A feeding tube projects over the mid abdomen. Nonobstruct theodora bowel gas pattern. There is moderate rectal fecal retention. No renal calculi. No ureteral calcu li. No pneumoperitoneum or pneumatosis. No fracture. IMPRESSION: 1. Nonobstructive bowel gas pattern. 2. Moderate rectal fecal retention. ACT 112: Negative or not required by law. The above report was generated using voice recognition software. It may contain grammatical, syntax o r spelling errors. Electronically signed by: Bharat Espinal M.D. 01/19/2024 7:21 PM
[2024-01-19] MEDS: ACETAMINOPHEN SUSP 325 MG/10.15 ML UDC PEG PRN (19:57)
[2024-01-19] MEDS: bisacodyL 10 MG SUPP PR STA (21:07)
[2024-01-20 07:06] LABS: BUN Creatinine Ratio 46.5 (10-20); Calcium 7.7 mg/dl (8.6-10.3); Creatinine Clr Calc Pharmacy 84.7 ml/min; Est GFR (African American) 112.1 ml/min; Est GFR (Non-African American) 96.7 ml/min; Magnesium 1.8 mg/dl (1.7-2.4); Potassium 3.9 mmol/L (3.5-5.1)
--- NOTE | 2024-01-20 08:23 | Cardiology Progress Note ---
Date of Service January 20, 2024 Assessment & Plan (1) Atrial fibrillation with RVR: (2) Multifocal pneumonia: Plan: * Continue Unasyn and oxygen Plan Assessment: 78 year old acutely ill female with A-fib with rVR in the setting of multifocal pneumonia. Plan: 1. Atrial fibrillation with RVR: -patient has responded well to IV cardizem infusion. Hesitant to start PO cardizem as she is actively vomiting. We will continue Cardizem gtt with plans to consider introducing PO transition tomorrow if needed. -rates 70-80's. -Euvolemic on exam. -Will continue metoprolol tartrate 25mg via PEG tube 4 times daily -Continue to monitor closely on telemetry -Continue reduced dose Eliquis 2.5mg BID for anticoagulation (Age and weight) -No repeat echo is needed 2. Multifocal pneumonia -Continued management per primary team and Pulm -Continue IV unasyn, nebulizers and supplemental O2 therapy 01/20/2024: -HR's have improved with use of cardizem gtt. Will add PO cardizem in attempt to wean off gtt. Will Start Diltizem 30mg PO (via PEG tube) TID. -Euvolemic on exam. -Continue metoprolol tartrate 25mg via PEG tube 4 times guerrero -Monitor closely on telemetry -Continue reduced dose Eliquis (age and weight) -Continued antibiotics, nebulizers and supplemental O2 per primary team. Case has been discussed with Dr. Aguilar. Further recommendations regarding plan of care as per her assessment. I spent a total of 30 minutes on the date of service in preparation, delivery, documentation of the care provided to the patient excluding any time spent in the performance of separately billed services. CEASAR Linares [facility] Admission and Anticipated Discharge Date Admission Date: January 16, 2024 Supervising Physician Co-Signing Physician Notes I have reviewed the advanced practitioner's documentation on the date of service referenced in note, and I agree with, and take responsibility for the plan of care. I spent a total of [15] minutes coordinating, documenting, and providing care for this patient excluding time spent in the performance of separately billed services or time spent by another provider. 78-year-old with squamous cell carcinoma of the tongue postradiation with PEG tube malnourishment , Admitted with pneumonia and atrial fibrillation Has been on Cardizem drip which has been reduced to 5 mg Cardizem p.o. through PEG tube started Plan to discontinue Cardizem drip and uptitrate p.o. Cardizem Subjective 01/20/24: Patient seen and examined in follow up today. Feeling fair. spouse is at bedside. Patient denies any chest pain pressure or palpitations. She denies any worsening breathing, but remains on Oxymask at 10 LPM. Labs, vitals, diagnostics, telemetry and documentation reviewed. Telemetry reviewed showing A-fib rates 100-110bpm. currently on Cardizem gtt at 5 Review of Systems Review of Systems: All systems reviewed & are unremarkable except as noted in HPI & below Physical Exam Constitutional: + ill appearing, + cachectic and + frail appearing; no acute distress ENMT: Ears: + hearing impairment Neck: normal visual inspection and trachea midline Respiratory: normal respiratory effort and + cough (weak, non-productive ); no respiratory distress and no labored breathing Auscultation: + diminished lung sounds and + wheezes; no crackles, no rales and no rhonchi Cardiovascular: Rate/Rhythm: + irregularly irregular Heart Sounds: normal S1 and normal S2; no murmur Vessels: dorsalis pedis pulses present; no JVD Extremities: no edema Skin: no rashes, warm and dry Psychiatric: Orientation: alert and oriented x 3 Affect: + flat affect Results & Data Vital Signs (Past 12 Hours) Vital Signs Temp Pulse Pulse Resp BP Pulse Ox O2 Del Method 01/20/24 07:34 37.0 C 98 H 18 127/80 84 L Oxymask 01/20/24 06:59 89 18 90 Oxymask 01/20/24 05:00 01/20/24 03:30 36.5 C 91 H 14 116/67 94 Oxymask 01/19/24 23:51 36.6 C 81 14 99/63 L 93 Oxymask 01/19/24 23:26 94 H O2 Del Method O2 Flow Rate O2 Flow Rate 01/20/24 07:34 10 01/20/24 06:59 10 01/20/24 05:00 Oxymask 10 01/20/24 03:30 10.0 01/19/24 23:51 10.0 01/19/24 23:26 Laboratory Results Comprehensive Metabolic Panel 01/20/24 Range/Units 06:05 Sodium 138 (136-145) mmol/L Potassium 3.9 (3.5-5.1) mmol/L Chloride 107 (98-107) mmol/L Carbon Dioxide 26 (21-32) mmol/L BUN 20 (6-23) mg/dl Creatinine 0.43 L (0.6-1.2) mg/dl Glucose 105 H (70-99(Fasting)) mg/dl Calcium 7.7 L (8.6-10.3) mg/dl Albumin 2.8 L (3.4-5.0) gm/dl Intake and Output 01/19/24 01/20/24 01/20/24 22:59 06:59 14:59 Intake Total 152.583 / 1354.750 259.167 / 1354.750 113.25 / 113.25 Output Total 350 / 450 100 / 450 Balance -197.417 / 904.750 159.167 / 904.750 113.25 / 113.25 Intake: IV 152.583 / 1354.750 259.167 / 1354.750 113.25 / 113.25 Ampicillin/Sulbactam Sod 3,000 100 / 400 200 / 400 100 / 100 mg In 100 ml @ 200 mls/hr IV Q6H [facility] Rx#:[id number] dilTIAZem HCL 125 mg In 52.583 / 236.750 59.167 / 236.750 13.25 / 13.25 Dextrose 5% 100 ml @ 5 MG/HR 5 mls/hr IV .Q24H [facility] Rx#: [id number] Output: Urine Amount (Catheter) 350 / 450 100 / 450 External 350 / 450 100 / 450 Other: Other Intake Source npo/sips/chips NPO # Unmeasured Voids 1 Weight 50.6 kg Weight Measurement Method Built in [facility]
--- NOTE | 2024-01-20 09:15 | XRay Report ---
XR chest 1V portable CLINICAL HISTORY: ff up pneumonia COMPARISON STUDY: Chest radiograph January 15, 2024. Chest CT January 16, 2024. FINDINGS: Extensive right mid and lower lung consolidation has progressed. There is a small right ple ural effusion. There is no pneumothorax. There is no evidence for pulmonary edema. Cardiomegaly is ag ain noted. IMPRESSION: 1. Increase in extensive right mid and lower lung consolidation consistent with pneumonia or aspirati on pneumonitis. 2. Small right pleural effusion. ACT 112: Negative or not required by law. Electronically signed by: Eloy Green M.D. 01/20/2024 9:13 AM
[2024-01-20 09:20] LABS: Albumin Level 2.8 gm/dl (3.4-5.0)
[2024-01-20] MEDS: dilTIAZem HCL 30 MG TAB PO ONE (15:12)
[2024-01-20] MEDS: FUROSEMIDE INJ 20 MG/2 ML VIAL IV ONE (16:17)
[2024-01-20] MEDS: methylPREDNISolone 125 MG/2 ML VIAL IV STA (16:17)
--- NOTE | 2024-01-20 16:27 | XRay Report ---
XR chest 1V portable CLINICAL HISTORY: hypoxia COMPARISON STUDY: Chest CT January 16, 2024. Chest radiograph performed earlier today. FINDINGS: Extensive right mid and lower lung consolidation slightly progressed. There is a small righ t pleural effusion. There is no pneumothorax. Cardiomegaly is again noted. There are no radiographic evidence for overt pulmonary edema. IMPRESSION: 1. Extensive right lower lung pneumonia which has slightly progressed. 2. Small right pleural effusion. ACT 112: Negative or not required by law. Electronically signed by: Eloy Green M.D. 01/20/2024 4:26 PM
[2024-01-20] MEDS: ACETYLCYSTEINE 10% INHAL SOLN 4 ML **DISPENSED BY RESP. INH SCH (19:29)
[2024-01-20] MEDS: LEVALBUTEROL 1.25 MG/3 ML NEB NEB PRN (19:29)
[2024-01-20] MEDS: dilTIAZem HCL 30 MG TAB PO SCH (22:04)
[2024-01-21] MEDS: MAGNESIUM SULFATE / D5W 1 GM/100 ML BAG IV ONE (04:21)
[2024-01-21] MEDS: dilTIAZem HCL 30 MG TAB PO SCH (08:21)
--- NOTE | 2024-01-21 08:22 | Communication Note ---
Date of Service: January 21, 2024 Neph c/s 01/17 for hypernatremia sNa has corrected/ been wnl 01/18 and 01/19; today's labs pending Will sign off No OP neph f/u needed though PCP repeat BMP 7-10 days after d/c Appreciate c/s
[2024-01-21 09:12] LABS: BUN Creatinine Ratio 52.8 (10-20); Calcium 7.8 mg/dl (8.6-10.3); Creatinine Clr Calc Pharmacy 69.2 ml/min; Est GFR (African American) 104.7 ml/min; Est GFR (Non-African American) 90.3 ml/min; Magnesium 2.4 mg/dl (1.7-2.4); Potassium 4.3 mmol/L (3.5-5.1)
--- NOTE | 2024-01-21 10:30 | XRay Report ---
XR chest 1V portable HISTORY: 78 years-old Female increasing hypoxia acute hypoxia COMPARISON: 01/20/2024 TECHNIQUE: AP view of the chest FINDINGS: Cardiac silhouette is enlarged. Pulmonary vascular congestion. No pneumothorax. Unchanged right great er than left pleural effusions with right basilar consolidation. No significant change. Bones appear intact. IMPRESSION: Unchanged right basilar consolidation with right pleural effusion. ACT 112: Negative or not required by law. The above report was generated using voice recognition software. It may contain grammatical, syntax o r spelling errors. Electronically signed by: Bharat Espinal M.D. 01/21/2024 10:28 AM
--- NOTE | 2024-01-21 10:57 | Cardiology Progress Note ---
Date of Service January 21, 2024 Assessment & Plan (1) Atrial fibrillation with RVR: (2) Multifocal pneumonia: Plan: * Continue Unasyn and oxygen Plan Assessment: 78 year old acutely ill female with A-fib with rVR in the setting of multifocal pneumonia. Continue metoprolol tartrate and short acting Cardizem via PEG tube. Monitor telemetry. Continue reduced dose Eliquis 2.5 mg twice daily (age and weight). No need for repeat echocardiogram at this time. Management of multifocal pneumonia as per hospitalist. Admission and Anticipated Discharge Date Admission Date: January 16, 2024 Subjective 78-year-old female seen examined at the bedside. Wearing high flow nasal can nula oxygen this a.m. Shortness of breath reported overnight with episodes of atrial fibrillation with rapid ventricular response. Currently heart rate 80- 110 bpm. Denies palpitations. present at bedside. Review of Systems Review of Systems: All systems reviewed & are unremarkable except as noted in Subjective Physical Exam Constitutional: + ill appearing and + cachectic; no acut e distress Respiratory: no respiratory distress and does not use accessory muscles Auscultation: + diminished lung sounds (Bilateral, poor effort) and + rhonchi Cardiovascular: Rate/Rhythm: + irregularly irregular Heart Sounds: normal S1 and normal S2; no murmur Vessels: no JVD Extremities: no edema Gastrointestinal (Abdomen): Inspection/Auscultation: abdomen not distended Percussion/Palpation: abdomen soft; abdomen nontender, no guarding and abdomen not rigid Neurologic: moves all extremities Results & Data Vital Signs (Past 12 Hours) Vital Signs Temp Pulse Pulse Resp BP Pulse Ox O2 Del Method 01/21/24 10:45 High Flow Nasal Cannula 01/21/24 07:19 36.6 C 105 H 20 111/72 96 High Flow Nasal Cannula 01/21/24 07:07 101 H 20 96 High Flow Nasal Cannula 01/21/24 03:30 98 H 18 95 High Flow Nasal Cannula 01/21/24 02:27 36.6 C 82 16 116/73 95 High Flow Nasal Cannula 01/20/24 23:54 77 18 96 High Flow Nasal Cannula 01/20/24 23:03 36.7 C 83 14 100/66 94 High Flow Nasal Cannula O2 Flow Rate FiO2 01/21/24 10:45 30 60 01/21/24 07:19 30 01/21/24 07:07 30 60 09/23/24 03:30 30 70 01/21/24 02:27 01/20/24 23:54 30 70 01/20/24 23:03 30.0 Laboratory Results Comprehensive Metabolic Panel 01/21/24 Range/Units 08:10 Sodium 136 (136-145) mmol/L Potassium 4.3 (3.5-5.1) mmol/L Chloride 104 (98-107) mmol/L Carbon Dioxide 25 (21-32) mmol/L BUN 28 H (6-23) mg/dl Creatinine 0.53 L (0.6-1.2) mg/dl Glucose 213 H (70-99(Fasting)) mg/dl Calcium 7.8 L (8.6-10.3) mg/dl Intake and Output 01/20/24 01/21/24 01/21/24 22:59 06:59 14:59 Intake Total 170.167 / 531.084 247.667 / 531.084 100 / 100 Output Total 850 / 1000 150 / 1000 Balance -679.833 / -468.916 97.667 / -468.916 100 / 100 Intake: IV 170.167 / 531.084 247.667 / 531.084 100 / 100 Ampicillin/Sulbactam Sod 3,000 100 / 300 100 / 300 100 / 100 mg In 100 ml @ 200 mls/hr IV Q6H [facility] Rx#:[id number] Magnesium Sulfate / D5w 1 gm In 100 / 100 100 ml @ 50 mls/hr IV ONE ONE Rx#:[id number] dilTIAZem HCL 125 mg In 70.167 / 131.084 47.667 / 131.084 Dextrose 5% 100 ml @ 10 MG/HR 10 mls/hr IV .[id number] [facility] Rx#: [id number] Output: Urine 150 / 150 Urine Amount (Catheter) 700 / 850 150 / 850 External 300 / 300 [place]/Indwelling 400 / 550 150 / 550 Other: Other Intake Source NPO NPO # Unmeasured Voids 1 Weight 50.9 kg Weight Measurement Method Built in [facility]
--- NOTE | 2024-01-21 10:57 | Pulmonology Progress Note ---
Date of Service January 21, 2024 Assessment & Plan (1) Acute hypoxic respiratory failure: (2) Aspiration pneumonia: Plan Impression: 78-year-old female with prior history of squamous cold carcinoma of the tongue status post radiation therapy now with PEG tube. She has multifocal airspace opacities and evidence of aspiration on CT scan. She is improving with antibiotics. Patient continues to require high flow oxygen. Recommend 2 weeks of Unasyn. Patient not a good candidate for more invasive therapy such as bronchoscopy due to her severe kyphosis and age. Will trial less invasive measures such as hypertonic saline and percussive vest therapy to see if she tolerates this and to see if it will promote mucociliary clearance. Will discontinue Mucomyst as this could predispose her to bronchospasm. Chest x-ray today reviewed with right lower lobe infiltrate which persist. There may be a surrounding small parapneumonic effusion. Will continue to follow patient's clinical course. Suggest palliative care involvement given her multiple comorbidities and poor prognosis. Admission and Anticipated Discharge Date Admission Date: January 16, 2024 Subjective Patient seen and examined. at bedside. She is very hard of hearing. She continues to have shortness of breath with mild exertion. She is essentially bedbound and remains on high flow oxygen. Seen by my colleagues earlier this hospitalization. Review of Systems Review of Systems: All systems reviewed & are unremarkable except as noted in HPI & below Physical Exam Constitutional: Elderly kyphotic female in no obvious distress Neck: trachea midline, no thyromegaly Respiratory: no respiratory distress, no labored breathing, no cough and not tachypneic Auscultation: + rhonchi; no crackles and no wheezes Cardiovascular: RRR, no murmur, no edema Gastrointestinal (Abdomen): normal bowel sounds, soft, nontender, no hepatosplenomegaly Musculoskeletal: Extremities: extremities normal to inspection Skin: no rashes, warm and dry Lymphatic: no cervical lymphadenopathy Results & Data Results & Data Vital Signs (Past 12 Hours) Vital Signs Temp Pulse Pulse Resp BP Pulse Ox O2 Del Method 01/21/24 10:45 High Flow Nasal Cannula 01/21/24 07:19 36.6 C 105 H 20 111/72 96 High Flow Nasal Cannula 01/21/24 07:07 101 H 20 96 High Flow Nasal Cannula 01/21/24 03:30 98 H 18 95 High Flow Nasal Cannula 09/23/24 02:27 36.6 C 82 16 116/73 95 High Flow Nasal Cannula 01/20/24 23:54 77 18 96 High Flow Nasal Cannula 01/20/24 23:03 36.7 C 83 14 100/66 94 High Flow Nasal Cannula O2 Flow Rate FiO2 01/21/24 10:45 30 60 01/21/24 07:19 30 01/21/24 07:07 30 60 01/21/24 03:30 30 70 01/21/24 02:27 01/20/24 23:54 30 70 01/20/24 23:03 30.0 PG Care Time/CCT Total # of Minutes Spent Total Time Spent with Patient: Total time spent is greater than 50% in coordination of care (as documented) at patient's floor/unit and/or counseling patient: Coding Level of Care Code 68036 SUB INP/OBS CARE 2/35MIN Diagnoses Acute hypoxic respiratory failure J96.01 Aspiration pneumonia J69.0
[2024-01-21] MEDS: POLYETHYLENE (MIRALAX) 17 GM PACK PO SCH (17:46)
--- NOTE | 2024-01-21 18:58 | Hospitalist Progress Note ---
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 She is a currently requiring BiPAP in the ER. in the room. states her shortness of breath started today. Has some cough. Has weakness. No fevers. Patient denies any headache. Denies chest pain. Denies nausea. Denies abdominal pain. Patient gets all nutrition from PEG tube. Ambulates without support at home as per . states patient had tongue cancer and when she talks it somewhat difficult to understand her. Currently saturating okay on BiPAP and hemodynamics are okay.Answering by nodding her head. helped with H&P. Acute hypoxic respiratory failure, Aspiration Pneumonia Follow CT chest Empiric Vanco and Invanz Currently requiring BiPAP Gentle fluids Nebs as needed 01/16 Remains on 10 l of oxygen by OxyMask Continue antibiotics Add hypertonic saline, Protonix IV twice daily Continue to wean off O2 Monitor closely 01/17 Remains on 10 L Will order incentive spirometry, and flutter valve Continue IV antibiotics, hypertonic saline nebs, Protonix IV 01/18 On 8 L Continue sinus parameter, flutter valve Continue IV antibiotics, hypertonic saline nebs, Protonix IV 01/19 Desaturated in the 86, 87% in the afternoon Patient denies having changes with her breathing Repeat chest x-ray: Slight worsening of right mid to lower lobe pneumonia Lasix 20 mg IV, Solu-Medrol 40 mg IV, Xopenex stat treatment Discussed with respiratory therapist, will transition to high flow oxygen therapy Encouraged to use incentive spirometry and flutter valve Continue to monitor closely 01/20 Remains on high flow O2 Continue IV Unasyn Pulm on board Hypernatremia D5 water Increased free water flushes Nephrology service consulted Na 138 Hold free water flushes, possible volume overload contributing to hypoxia 01/20 Na 136 Free water flushes on hold History of squamous cell carcinoma of tongue S/p radiation N.p.o. S/p PEG tube Nutrition and meds via PEG tube 01/17 Continues tube feeding in progress No issues per RN 01/18 Tube feeding placed on hold due to emesis this morning Dietitian notified, recommend to resume tube feeding at lower rate late this afternoon, KUB ordered 01/19 tube feeding resumed with slower rate 01/20 Tolerating tube feeding so far History of left breast cancer Status post partial mastectomy A-fib, RVR Transition from Coreg to metoprolol and diltiazem drip Already on Eliquis Cardiology consulted Heart rate improved to 90s check TSH 6.3 , check free t4: Normal Hypothyroidism On Synthyroid DVT prophylaxis On Eliquis CODE STATUS DNR/DNI as per my discussion patient and . Disposition Telemetry Admission and Anticipated Discharge Date Admission Date: January 16, 2024 Subjective Seen resting in bed, comfortable, on high flow O2 States breathing is okay Denies shortness of breath, cough No abdominal pain or nausea Reports decreased hearing as well as ringing on the right ear No other new symptoms Review of Systems Review of Systems: all noted and negative except for above Physical Exam Physical Exam: General- oriented x 2, not in distress, breathing with no effort or accessory muscle use Eyes- anicteric Neck- no JVD Right ear-impacted cerumen Lungs- rhonchi on the right lung pak, clear on the left Heart- normal rate, regular rhythm; no murmurs Abdomen- normal bowel sounds, nondistended, soft, no tenderness Extremities- no pretibial edema, no calf tenderness Neuro- alert, oriented x 3; no gross focal neurologic deficits Skin- warm & dry Results & Data Results & Data Vital Signs (Past 12 Hours) Vital Signs Temp Pulse Pulse Pulse Resp BP Pulse Ox 01/21/24 18:17 95 H 01/21/24 15:30 88 20 94 01/21/24 15:00 37.0 C 89 20 106/65 99 01/21/24 11:40 36.7 C 103 H 18 109/75 95 01/21/24 11:29 88 01/21/24 11:02 111 H 20 94 01/21/24 10:45 01/21/24 07:19 36.6 C 105 H 20 111/72 96 01/21/24 07:07 101 H 20 96 O2 Del Method O2 Flow Rate FiO2 01/21/24 18:17 01/21/24 15:30 High Flow Nasal Cannula 30 50 01/21/24 15:00 High Flow Nasal Cannula 30 60 01/21/24 11:40 High Flow Nasal Cannula 20 01/21/24 11:29 01/21/24 11:02 High Flow Nasal Cannula 30 60 01/21/24 10:45 High Flow Nasal Cannula 30 60 01/21/24 07:19 High Flow Nasal Cannula 30 01/21/24 07:07 High Flow Nasal Cannula 30 60
[2024-01-21] MEDS: SODIUM CHLOR 7% 4 ML NEB NEB SCH (20:03)
[2024-01-21] MEDS: CARBAMIDE PEROXIDE 6.5% 15 ML BTL OT SCH (20:20)
[2024-01-22] MEDS: bisacodyL 10 MG SUPP PR PRN (00:43)
[2024-01-22 07:57] LABS: Calcium 7.8 mg/dl (8.6-10.3); Creatinine Clr Calc Pharmacy 71.3 ml/min; Est GFR (Non-African American) 91.5 ml/min; Magnesium 2.2 mg/dl (1.7-2.4); Potassium 4.1 mmol/L (3.5-5.1)
--- NOTE | 2024-01-22 10:41 | Pulmonology Progress Note ---
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 She has multifocal airspace opacities and evidence of aspiration on CT scan. She is improving with antibiotics. Patient continues to require high flow oxygen. Recommend 2 weeks of Unasyn. Patient not a good candidate for more invasive therapy such as bronchoscopy due to her severe kyphosis and age. Will trial less invasive measures such as hypertonic saline and percussive vest therapy to see if she tolerates this and to see if it will promote mucociliary clearance. Chest x-ray 01/21/2024 reviewed with right lower lobe infiltrate which is persistent. There may be a surrounding small parapneumonic effusion. Repeat chest x-ray 01/23/2024. Repeat procalcitonin today. Last Pro-Hector 01/15/2024 was elevated to 6.85. Echo 07/24/2023 with an EF of 60 to 65%. Grade 2 diastolic dysfunction. Mild tricuspid regurgitation. No evidence of pulmonary hypertension. Appreciate cardiology input. Note reviewed from 01/21/2024. Patient had a bout of atrial fibrillation with rapid ventricular response and is currently on Eliquis, metoprolol and Cardizem. Will continue to follow patient's clinical course. Suggest palliative care involvement given her multiple comorbidities and poor prognosis. Admission and Anticipated Discharge Date Admission Date: January 16, 2024 Subjective Patient has been notes that her cough and shortness of breath has improved some since yesterday. She has been compliant with percussive vest therapy per the patient. Review of Systems Review of Systems: All systems reviewed & are unremarkable except as noted in HPI & below Physical Exam Constitutional: Elderly kyphotic female in no obvious distress Neck: trachea midline, no thyromegaly Respiratory: no respiratory distress, no labored breathing, no cough and not tachypneic Auscultation: + rhonchi; no crackles and no wheezes Cardiovascular: RRR, no murmur, no edema Gastrointestinal (Abdomen): normal bowel sounds, soft, nontender, no hepatosplenomegaly Musculoskeletal: Extremities: extremities normal to inspection Skin: no rashes, warm and dry Lymphatic: no cervical lymphadenopathy Results & Data Results & Data Vital Signs (Past 12 Hours) Vital Signs Temp Pulse Resp BP Pulse Ox O2 Del Method O2 Flow Rate 01/22/24 07:47 36.3 C L 105 H 17 135/91 94 BiPAP 01/22/24 07:39 High Flow Nasal Cannula 25 01/22/24 07:10 113 H 20 94 High Flow Nasal Cannula 30 01/22/24 04:33 17 97 High Flow Nasal Cannula 30 01/22/24 04:11 36 C L 106 H 16 132/68 93 High Flow Nasal Cannula 30 01/22/24 00:29 102 H 20 92 High Flow Nasal Cannula 30 01/22/24 00:12 36.3 C L 102 H 20 125/89 95 High Flow Nasal Cannula 30 FiO2 01/22/24 07:47 01/22/24 07:39 40 01/22/24 07:10 40 01/22/24 04:33 40 01/22/24 04:11 40 01/22/24 00:29 40 01/22/24 00:12 40 PG Care Time/CCT Total # of Minutes Spent Total Time Spent with Patient: Total time spent is greater than 50% in coordination of care (as documented) at patient's floor/unit and/or counseling patient: Coding Level of Care Code 68814 SUB INP/OBS CARE 2/35MIN Diagnoses Acute hypoxic respiratory failure J96.01 Aspiration pneumonia J69.0
--- NOTE | 2024-01-22 11:55 | Cardiology Progress Note ---
Date of Service January 22, 2024 Assessment & Plan (1) Atrial fibrillation with RVR: (2) Multifocal pneumonia: Plan: * Continue Unasyn and oxygen Plan Assessment: 78 year old acutely ill female with A-fib with rVR in the setting of multifocal pneumonia. Continue metoprolol tartrate and short acting Cardizem via PEG tube. Continue reduced dose Eliquis 2.5 mg twice daily (age and weight). No need for repeat echocardiogram at this time. Management of multifocal pneumonia as per hospitalist. Admission and Anticipated Discharge Date Admission Date: January 16, 2024 Subjective Patient seen and examined at the bedside. No changes overnight. present without additional concerns. Patient denies chest pain or palpitations. Telemetry feels atrial fibrillation in the low 100s. Review of Systems Review of Systems: All systems reviewed & are unremarkable except as noted in Subjective Physical Exam Constitutional: + ill appearing and + cachectic; no acut e distress Respiratory: no respiratory distress and does not use accessory muscles Auscultation: + diminished lung sounds (Bilateral, poor effort) and + rhonchi Cardiovascular: Rate/Rhythm: + irregularly irregular Heart Sounds: normal S1 and normal S2; no murmur Vessels: no JVD Extremities: no edema Gastrointestinal (Abdomen): Inspection/Auscultation: abdomen not distended Percussion/Palpation: abdomen soft; abdomen nontender, no guarding and abdomen not rigid Neurologic: moves all extremities Results & Data Vital Signs (Past 12 Hours) Vital Signs Temp Pulse Resp BP Pulse Ox O2 Del Method O2 Flow Rate 01/22/24 11:23 36.9 C 112 H 20 122/75 91 BiPAP 01/22/24 07:47 36.3 C L 105 H 17 135/91 94 BiPAP 01/22/24 07:39 High Flow Nasal Cannula 25 01/22/24 07:10 113 H 20 94 High Flow Nasal Cannula 30 01/22/24 04:33 17 97 High Flow Nasal Cannula 30 01/22/24 04:11 36 C L 106 H 16 132/68 93 High Flow Nasal Cannula 30 01/22/24 00:29 102 H 20 92 High Flow Nasal Cannula 30 01/22/24 00:12 36.3 C L 102 H 20 125/89 95 High Flow Nasal Cannula 30 FiO2 01/22/24 11:23 01/22/24 07:47 01/22/24 07:39 40 01/22/24 07:10 40 01/22/24 04:33 40 01/22/24 04:11 40 01/22/24 00:29 40 01/22/24 00:12 40 Laboratory Results Comprehensive Metabolic Panel 01/22/24 Range/Units 07:13 Sodium 142 (136-145) mmol/L Potassium 4.1 (3.5-5.1) mmol/L Chloride 108 H (98-107) mmol/L Carbon Dioxide 28 (21-32) mmol/L BUN 26 H (6-23) mg/dl Creatinine 0.51 L (0.6-1.2) mg/dl Glucose 113 H (70-99(Fasting)) mg/dl Calcium 7.8 L (8.6-10.3) mg/dl Intake and Output 01/21/24 01/22/24 01/22/24 22:59 06:59 14:59 Intake Total 100 / 1073 773 / 1073 100 / 100 Output Total 500 / 1251 351 / 1251 Balance -400 / -178 422 / -178 100 / 100 Intake: IV 100 / 400 100 / 400 100 / 100 Ampicillin/Sulbactam Sod 3,000 100 / 400 100 / 400 100 / 100 mg In 100 ml @ 200 mls/hr IV Q6H [facility] Rx#:[id number] Tube Feeding 673 / 673 Output: Urine Amount (Catheter) 500 / 1250 350 / 1250 [place]/Indwelling 500 / 1250 350 / 1250 # Bowel Movements Other: Other Intake Source NPO Weight 50.462 kg Weight Measurement Method Built in [facility]
--- NOTE | 2024-01-22 14:55 | Hospitalist Progress Note ---
Date of Service January 22, 2024 Assessment & Plan (1) Acute hypoxic respiratory failure: Plan: (1) Acute hypoxic respiratory failure: Plan: 78-year-old female with past med history significant for left breast cancer status post partial mastectomy 2004, history of lateral squamous cell tongue cancer s/p radiation with PEG tube placement, hypothyroidism, age-related osteoporosis, history of sarcoidosis, history of paroxysmal atrial fibrillation, hypothyroidism, history of pleural effusion, history of kidney stones, history of overactive bladder comes from home with shortness of breath. She is a currently requiring BiPAP in the ER. in the room. states her shortness of breath started today. Has some cough. Has weakness. No fevers. Patient denies any headache. Denies chest pain. Denies nausea. Denies abdominal pain. Patient gets all nutrition from PEG tube. Ambulates without support at home as per . states patient had tongue cancer and when she talks it somewhat difficult to understand her. Currently saturating okay on BiPAP and hemodynamics are okay.Answering by nodding her head. helped with H&P. Acute hypoxic respiratory failure, Aspiration Pneumonia CT chest: 1. No pulmonary embolus. 2. Filling defects of the bronchi of the right lower lobe may represent mucous plugs and/or aspiration. 3. Airspace opacities of the right middle and lower lobes is concerning for multifocal pneumonia and/or aspiration. 4. 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 Pulmonary service consulted Given IV Unasyn, hypertonic saline Initially requiring OxyMask 10 L 01/19 Desaturated in the 86, 87% in the afternoon Patient denies having changes with her breathing Repeat chest x-ray: Slight worsening of right mid to lower lobe pneumonia Lasix 20 mg IV, Solu-Medrol 40 mg IV, Xopenex stat treatment Transitioned to have low oxygen therapy Encouraged to use incentive spirometry and flutter valve Continue to monitor closely 01/21 Has remained on high flow O2 Continue IV Unasyn, hypertonic saline nebs, incentive spirometry, flutter valve Pulmonology service on board Hypernatremia 147 Placed on D5 water, free water flushes Currently sodium level 142 Free water flushes on hold in light of possible volume overload leading to higher oxygen requirement, required 1 dose of Lasix 2 days ago monitor closely History of squamous cell carcinoma of tongue S/p radiation N.p.o. S/p PEG tube Nutrition and meds via PEG tube Had an episode of abdominal distention, abdominal pain Tube feeding decreased to 30 cc/h Daily bowel regimen also place, positive BMs GI symptoms resolved, tolerating tube feeding so far History of left breast cancer Status post partial mastectomy Chronic atrial fibrillation Developed rapid ventricular response during admission Likely secondary to hypoxia Cardiology service consulted Transition from Coreg to metoprolol and diltiazem drip Already on Eliquis Heart rate improved to 90s TSH 6.3 , free t4: Normal Hypothyroidism On Synthyroid DVT prophylaxis On Eliquis CODE STATUS DNR/DNI as per my discussion patient and . Disposition Telemetry Admission and Anticipated Discharge Date Admission Date: January 16, 2024 Subjective Seen sitting up in bed, comfortable, not in distress Remains on high flow O2, seems to be more alert, interactive today States breathing seems to be improving gradually Denies cough, shortness of breath, chest pain No abdominal pain, tolerating tube feeding well Hearing starting to improve after initiation of eardrops Review of Systems Review of Systems: all noted and negative except for above Physical Exam Physical Exam: General- oriented x 3, not in distress, speaks in sentences with no effort or accessory muscle use Eyes- anicteric Neck- no JVD Lungs-Mild rhonchi at the right mid to lower base, clear on the left Heart- normal rate, regular rhythm; no murmurs Abdomen- normal bowel sounds, nondistended, soft, nontender PEG tube in place: No issues Extremities- no pretibial edema, no calf tenderness Neuro- alert, oriented x 3; no gross focal neurologic deficits Skin- warm & dry Results & Data Results & Data Vital Signs (Past 12 Hours) Vital Signs Temp Pulse Pulse Resp BP Pulse Ox O2 Del Method 01/22/24 14:40 95 H 01/22/24 13:19 112 H 137/78 01/22/24 11:23 36.9 C 112 H 20 122/75 91 BiPAP 01/22/24 11:05 97 H 22 92 High Flow Nasal Cannula 01/22/24 07:47 36.3 C L 105 H 17 135/91 94 BiPAP 01/22/24 07:39 High Flow Nasal Cannula 01/22/24 07:10 113 H 20 94 High Flow Nasal Cannula 01/22/24 04:33 17 97 High Flow Nasal Cannula 01/22/24 04:11 36 C L 106 H 16 132/68 93 High Flow Nasal Cannula O2 Flow Rate FiO2 01/22/24 14:40 01/22/24 13:19 01/22/24 11:23 01/22/24 11:05 25 40 01/22/24 07:47 01/22/24 07:39 25 40 01/22/24 07:10 30 40 01/22/24 04:33 30 40 01/22/24 04:11 30 40 all noted and reviewed including below
--- NOTE | 2024-01-23 07:10 | XRay Report ---
SINGLE VIEW CHEST CLINICAL HISTORY: Pneumonia. FINDINGS: An AP, portable, upright chest radiograph is compared to study dated 01/21/2024 and correlat ed with chest CT dated 01/16/2024. The heart is enlarged. There is mild pulmonary vascular congestion. Again seen is dense right lower lobe airspace consolidation and a right pleural effusion. Scarring/a telectasis is noted at the left lung base. No pneumothorax is seen. The skeletal structures are osteo penic. There are chronic/healed left-sided rib fractures. IMPRESSION: 1. Cardiomegaly with mild pulmonary vascular congestion. 2. Dense airspace consolidation in the right lower lung and a small right pleural effusion is unchang ed. Continued follow-up to resolution is recommended. ACT 112: Negative or not required by law. Electronically signed by: Howie Proctor M.D. 01/23/2024 7:08 AM
[2024-01-23 08:14] LABS: BUN Creatinine Ratio 45.2 (10-20); Est GFR (Non-African American) 97.5 ml/min; Potassium 4.2 mmol/L (3.5-5.1)
[2024-01-23 09:08] LABS: Hematocrit (blood only) 38.5 % (37.0-47.0); Hemoglobin 12.9 g/dl (12.0-16.0); Mean Corpuscular Hemoglobin 30.2 pg (25.0-34.0); Mean Corpuscular Hgb Conc 33.5 g/dL (32.0-36.0); Mean Corpuscular Volume 90.2 fL (80.0-100.0); Mean Platelet Volume 12.4 fL (9.4-12.4); Platelet Count 216 K/uL (130-400); RDW Coefficient of Variation 15.3 % (11.5-14.5); RDW Standard Deviation 50.2 fL (36.4-46.3); Red Blood Count 4.27 M/uL (4.20-5.40); White Blood Count 7.14 K/ul (4.8-10.8)
--- NOTE | 2024-01-23 12:20 | Hospitalist Progress Note ---
Date of Service January 23, 2024 Assessment & Plan (1) Acute hypoxic respiratory failure: Plan: 78-year-old female with past med history significant for left breast cancer status post partial mastectomy 2004, history of lateral squamous cell tongue cancer s/p radiation with PEG tube placement, hypothyroidism, age-related osteoporosis, history of sarcoidosis, history of paroxysmal atrial fibrillation, hypothyroidism, history of pleural effusion, history of kidney stones, history of overactive bladder comes from home with shortness of breath, cough and weakness Patient gets all nutrition from PEG tube. Ambulates without support at home as per . Had tongue cancer and when she talks it somewhat difficult to understand her. Acute hypoxic respiratory failure, Aspiration Pneumonia CT chest: 1. No pulmonary embolus. 2. Filling defects of the bronchi of the right lower lobe may represent mucous plugs and/or aspiration. 3. Airspace opacities of the right middle and lower lobes is concerning for multifocal pneumonia and/or aspiration. 4. 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 Initially requiring OxyMask 10 L, then HFNC and BIPAP intermittently Currently on NC 5L/min Pulm recs noted Continue hypertonic saline nebs, vest therapy IV unasyn Wean oxygen as tolerated Hypernatremia 147 Got IVF D5 water and free water flushes Resolved. Na is 138 today Free water flushes on hold in light of possible volume overload leading to higher oxygen requirement, required 1 dose of Lasix some days ago History of squamous cell carcinoma of tongue S/p radiation N.p.o. S/p PEG tube Nutrition and meds via PEG tube Had an episode of abdominal distention, abdominal pain Tube feeding was decreased to 30 cc/h Daily bowel regimen also place Having regular BM per RN Tolerating tubefeed History of left breast cancer Status post partial mastectomy Chronic atrial fibrillation Developed rapid ventricular response during admission Likely secondary to hypoxia Cardiology on board Transitioned from Coreg to metoprolol and diltiazem Continue Eliquis TSH 6.3 , free t4: Normal Will follow up with Card about med optimization for RVR Hypothyroidism On Synthroid DVT prophylaxis On Eliquis CODE STATUS DNR/DNI Disposition Telemetry PT/OT eval Updated at bedside I spent a total of 50 minutes coordinating, documenting and providing care for this patient excluding time spent in performance of separately billed services Admission and Anticipated Discharge Date Admission Date: January 16, 2024 Subjective Patient seen and examined Patient communicates by writing on her white board as it was tough to make out what she was saying today Reports feeling better today Cough is improving No shortness of breath at rest No other complaints on ROS Currently on NC 5L/min improved from yesterday Physical Exam Constitutional: + well hydrated and + thin; no acute dis tress Eyes: PERRL, conjunctivae normal, anicteric sclerae Respiratory: On nasal cannula, not in resp distress, Diminished breath sounds Cardiovascular: Rate/Rhythm: + tachycardic and + irregularly irregular Gastrointestinal (Abdomen): normal bowel sounds, soft, nontender, no hepatosplenomegaly Musculoskeletal: No pedal edema Neurologic: Awake, alert, follows commands Genitourinary: Quez[place] in situ Results & Data Results & Data Vital Signs (Past 12 Hours) Vital Signs Temp Pulse Pulse Pulse Resp BP BP 01/23/24 11:39 36.9 C 132 H 19 142/92 H 01/23/24 07:41 36.5 C 105 H 19 151/84 H 01/23/24 07:40 118 H 01/23/24 07:26 127 H 12 01/23/24 07:23 01/23/24 06:32 108 H 103/80 01/23/24 05:00 01/23/24 03:38 100 H 102/60 01/23/24 02:26 36.5 C 107 H 18 130/79 Pulse Ox Pulse Ox O2 Del Method O2 Del Method O2 Flow Rate O2 Flow Rate 01/23/24 11:39 93 Nasal Cannula 5 01/23/24 07:41 100 Nasal Cannula 5 01/23/24 07:40 01/23/24 07:26 97 Nasal Cannula 5 01/23/24 07:23 Nasal Cannula 6 01/23/24 06:32 01/23/24 05:00 97 Nasal Cannula 5 01/23/24 03:38 01/23/24 02:26 97 High Flow Nasal Cannula 4 Laboratory Results Abnormal lab results 01/23/24 01/23/24 01/23/24 Range/Units 02:54 07:27 07:30 RDW Std Deviation 50.2 H (36.4-46.3) fL RDW Coeff of Elliot 15.3 H (11.5-14.5) % Chloride 108 H (98-107) mmol/L Creatinine 0.42 L (0.6-1.2) mg/dl BUN/Creatinine Ratio 45.2 H (10-20) Glucose 114 H (70-99(Fasting)) mg/dl POC Glucose 124 H (70-99) mg/dl Calcium 8.0 L (8.6-10.3) mg/dl
[2024-01-23] MEDS ORDERED: AMPICILLIN SOD/SULBACTAM SOD 3 GM VIAL IV SCH (14:00)
--- NOTE | 2024-01-23 14:32 | Cardiology Progress Note ---
Date of Service January 23, 2024 Assessment & Plan (1) Atrial fibrillation with RVR: (2) Multifocal pneumonia: Plan: * Continue Unasyn and oxygen Plan Assessment: 78 year old acutely ill female with A-fib with rVR in the setting of multifocal pneumonia. Titrate metoprolol to 50 mg 3 times daily. Continue short acting Cardizem 30 mg 3 times daily. Continue reduced dose Eliquis 2.5 mg twice daily (age and weight). No need for repeat echocardiogram at this time. Management of multifocal pneumonia as per hospitalist. Admission and Anticipated Discharge Date Admission Date: January 16, 2024 Subjective Patient seen examined at the bedside. Denies palpitations or chest discomfort. Elevated heart rates noted on telemetry with periods of rapid ventricular response. The underlying rhythm is atrial flutter. present at bedside. Offers no additional concerns/complaints. Review of Systems Review of Systems: All systems reviewed & are unremarkable except as noted in Subjective Physical Exam Constitutional: + ill appearing and + cachectic; no acut e distress Respiratory: no respiratory distress and does not use accessory muscles Auscultation: + diminished lung sounds (Bilateral, poor effort) and + rhonchi Cardiovascular: Rate/Rhythm: + irregularly irregular Heart Sounds: normal S1 and normal S2; no murmur Vessels: no JVD Extremities: no edema Gastrointestinal (Abdomen): Inspection/Auscultation: abdomen not distended Percussion/Palpation: abdomen soft; abdomen nontender, no guarding and abdomen not rigid Neurologic: moves all extremities Results & Data Vital Signs (Past 12 Hours) Vital Signs Temp Pulse Pulse Pulse Resp BP BP 01/23/24 13:06 94 H 139/89 01/23/24 11:39 36.9 C 132 H 19 142/92 H 01/23/24 07:41 36.5 C 105 H 19 151/84 H 01/23/24 07:40 118 H 01/23/24 07:26 127 H 12 01/23/24 07:23 01/23/24 06:32 108 H 103/80 01/23/24 05:00 01/23/24 03:38 100 H 102/60 Pulse Ox Pulse Ox O2 Del Method O2 Del Method O2 Flow Rate O2 Flow Rate 01/23/24 13:06 01/23/24 11:39 93 Nasal Cannula 5 01/23/24 07:41 100 Nasal Cannula 5 01/23/24 07:40 01/23/24 07:26 97 Nasal Cannula 5 01/23/24 07:23 Nasal Cannula 6 01/23/24 06:32 01/23/24 05:00 97 Nasal Cannula 5 01/23/24 03:38 Laboratory Results CBC 01/23/24 Range/Units 07:30 WBC 7.14 (4.8-10.8) K/ul RBC 4.27 (4.20-5.40) M/uL Hgb 12.9 (12.0-16.0) g/dl Hct 38.5 (37.0-47.0) % Plt Count 216 (130-400) K/uL Comprehensive Metabolic Panel 01/23/24 Range/Units 07:27 Sodium 138 (136-145) mmol/L Potassium 4.2 (3.5-5.1) mmol/L Chloride 108 H (98-107) mmol/L Carbon Dioxide 24 (21-32) mmol/L BUN 19 (6-23) mg/dl Creatinine 0.42 L (0.6-1.2) mg/dl Glucose 114 H (70-99(Fasting)) mg/dl Calcium 8.0 L (8.6-10.3) mg/dl Intake and Output 01/22/24 01/23/24 01/23/24 22:59 06:59 14:59 Intake Total 130 / 530 200 / 530 Output Total 600 / 1600 500 / 1600 450 / 450 Balance -470 / -1070 -300 / -1070 -450 / -450 Intake: IV 100 / 500 200 / 500 Ampicillin/Sulbactam Sod 3,000 100 / 500 200 / 500 mg In 100 ml @ 200 mls/hr IV Q6H [facility] Rx#:[id number] Tube Feeding 30 / 30 Output: Urine Amount (Catheter) 600 / 1600 500 / 1600 450 / 450 [place]/Indwelling 600 / 1600 500 / 1600 450 / 450 Other: Other Intake Source Patient is NPO Patient is NPO Weight 51.3 kg Weight Measurement Method Built in [facility]
[2024-01-23] MEDS: AMPICILLIN/SULBACTAM SOD 3,000 MG/100 ML BAG IV SCH (15:06)
[2024-01-23] MEDS: METOPROLOL TARTRATE 25 MG TAB PO STA (15:53)
[2024-01-23] MEDS: METOPROLOL TARTRATE 50 MG TAB PO SCH (20:52)
[2024-01-24 09:58] LABS: Calcium 8.2 mg/dl (8.6-10.3); Potassium 4.2 mmol/L (3.5-5.1)
[2024-01-24 10:03] LABS: BUN Creatinine Ratio 36.2 (10-20); Creatinine Clr Calc Pharmacy 79.4 ml/min; Est GFR (African American) 108.9 ml/min; Est GFR (Non-African American) 93.9 ml/min; Phosphorus 2.8 mg/dl (2.5-4.9)
--- NOTE | 2024-01-24 11:37 | Hospitalist Progress Note ---
Date of Service January 24, 2024 Assessment & Plan (1) Acute hypoxic respiratory failure: Plan: 78-year-old female with past med history significant for left breast cancer status post partial mastectomy 2004, history of lateral squamous cell tongue cancer s/p radiation with PEG tube placement, hypothyroidism, age-related osteoporosis, history of sarcoidosis, history of paroxysmal atrial fibrillation, hypothyroidism, history of pleural effusion, history of kidney stones, history of overactive bladder comes from home with shortness of breath, cough and weakness Patient gets all nutrition from PEG tube. Ambulates without support at home as per . Had tongue cancer and when she talks it somewhat difficult to understand her. Acute hypoxic respiratory failure, Aspiration Pneumonia CT chest: 1. No pulmonary embolus. 2. Filling defects of the bronchi of the right lower lobe may represent mucous plugs and/or aspiration. 3. Airspace opacities of the right middle and lower lobes is concerning for multifocal pneumonia and/or aspiration. 4. 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 Initially requiring OxyMask 10 L, then HFNC and BIPAP intermittently Pulm recs noted Oxygen being weaned down, down to 2.5L NC Continue hypertonic saline nebs, vest therapy IV unasyn to complete 2 weeks per pulm recs Wean oxygen as tolerated Hypernatremia 147 Got IVF D5 water and free water flushes Resolved. Na is 136 today Free water flushes initially held now resumed History of squamous cell carcinoma of tongue S/p radiation N.p.o. S/p PEG tube Nutrition and meds via PEG tube Had an episode of abdominal distention, abdominal pain Tube feeding was decreased to 30 cc/h Daily bowel regimen also place Tolerating tubefeed History of left breast cancer Status post partial mastectomy Chronic atrial fibrillation Developed rapid ventricular response during admission Likely secondary to hypoxia Cardiology on board Transitioned from Coreg to metoprolol and diltiazem Continue Eliquis TSH 6.3 , free t4: Normal Cardiology increased metoprolol tartarate to 50mg TID Hypothyroidism On Synthroid DVT prophylaxis On Eliquis CODE STATUS DNR/DNI Disposition Telemetry Awaiting PT/OT alen RN to remove keenan Updated at bedside I spent a total of 40 minutes coordinating, documenting and providing care for this patient excluding time spent in performance of separately billed services Admission and Anticipated Discharge Date Admission Date: January 16, 2024 Subjective Patient seen and examined Patient communicates by writing on her white board Acknowledges cough is improving Denied SOB, chest pain Physical Exam Constitutional: + well hydrated and + thin; no acute dis tress Eyes: PERRL, conjunctivae normal, anicteric sclerae Respiratory: On 2.5L NC, diminished breath sounds Cardiovascular: Rate/Rhythm: + irregularly irregular Gastrointestinal (Abdomen): normal bowel sounds, soft, nontender, no hepatosplenomegaly Musculoskeletal: No pedal edema Neurologic: Awake, alert, follows commands Genitourinary: Keen[place] in situ Results & Data Results & Data Vital Signs (Past 12 Hours) Vital Signs Temp Pulse Pulse Resp BP BP Pulse Ox 01/24/24 11:21 96 01/24/24 11:21 01/24/24 10:54 100 H 01/24/24 07:35 100 H 18 96 01/24/24 07:13 36.6 C 111 H 18 109/68 96 01/24/24 07:01 128 H 121/88 01/24/24 07:00 119 H 01/24/24 05:00 01/24/24 03:35 36.5 C 107 H 16 121/84 98 Pulse Ox O2 Del Method O2 Del Method O2 Flow Rate O2 Flow Rate 01/24/24 11:21 Nasal Cannula 2.5 01/24/24 11:21 Nasal Cannula 2.5 01/24/24 10:54 01/24/24 07:35 Nasal Cannula 3 01/24/24 07:13 Nasal Cannula 3 01/24/24 07:01 01/24/24 07:00 01/24/24 05:00 97 Nasal Cannula 5 01/24/24 03:35 Nasal Cannula 3.0 Laboratory Results Abnormal lab results 01/24/24 Range/Units 07:47 Creatinine 0.47 L (0.6-1.2) mg/dl BUN/Creatinine Ratio 36.2 H (10-20) Glucose 120 H (70-99(Fasting)) mg/dl Calcium 8.2 L (8.6-10.3) mg/dl
--- NOTE | 2024-01-24 14:03 | Pulmonology Progress Note ---
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 She has multifocal airspace opacities and evidence of aspiration on CT scan. She is improving with antibiotics. Patient now on low-flow oxygen. Can likely transition Unasyn to Augmentin upon discharge. Would recommend 2 total weeks of antibiotics. Patient not a good candidate for more invasive therapy such as bronchoscopy due to her severe kyphosis and age. Continue hypertonic saline twice daily and percussive vest therapy as tolerated. Repeat procalcitonin unremarkable. Chest x-ray 01/23/2024 with no significant change. Dense airspace consolidation of the right lower lung and a small pleural effusion. Recommend repeat x-ray in approximately 4 to 6 weeks. Echo 07/24/2023 with an EF of 60 to 65%. Grade 2 diastolic dysfunction. Mild tricuspid regurgitation. No evidence of pulmonary hypertension. Appreciate cardiology input. Note reviewed from 01/21/2024. Patient had a bout of atrial fibrillation with rapid ventricular response and is currently on Eliquis, metoprolol and Cardizem. Suggest palliative care involvement given her multiple comorbidities and poor prognosis. Recommend PT and OT. No further recommendation at this time. Please call with questions. Thank you for the consult. Admission and Anticipated Discharge Date Admission Date: January 16, 2024 Subjective Symptoms remain stable. She is on low-flow oxygen. Denies any significant chest pain. Occasional cough. Shortness of breath with minimal exertion. Review of Systems Review of Systems: All systems reviewed & are unremarkable except as noted in HPI & below Physical Exam Neck: trachea midline, no thyromegaly Respiratory: no respiratory distress, no labored breathing, no cough and not tachypneic Auscultation: + rhonchi; no crackles and no wheezes Cardiovascular: RRR, no murmur, no edema Gastrointestinal (Abdomen): normal bowel sounds, soft, nontender, no hepatosplenomegaly Musculoskeletal: Extremities: extremities normal to inspection Skin: no rashes, warm and dry Lymphatic: no cervical lymphadenopathy Results & Data Results & Data Vital Signs (Past 12 Hours) Vital Signs Temp Pulse Pulse Resp BP BP Pulse Ox 01/24/24 12:54 01/24/24 12:00 36.8 C 109 H 18 115/74 97 01/24/24 11:21 96 01/24/24 11:21 01/24/24 10:54 100 H 01/24/24 07:35 100 H 18 96 01/24/24 07:13 36.6 C 111 H 18 109/68 96 01/24/24 07:01 128 H 121/88 01/24/24 07:00 119 H 01/24/24 05:00 01/24/24 03:35 36.5 C 107 H 16 121/84 98 Pulse Ox Pulse Ox O2 Del Method O2 Del Method O2 Flow Rate O2 Flow Rate O2 Flow Rate 01/24/24 12:54 92 2 01/24/24 12:00 Nasal Cannula 3 01/24/24 11:21 Nasal Cannula 2.5 01/24/24 11:21 Nasal Cannula 2.5 01/24/24 10:54 01/24/24 07:35 Nasal Cannula 3 01/24/24 07:13 Nasal Cannula 3 01/24/24 07:01 01/24/24 07:00 01/24/24 05:00 97 Nasal Cannula 5 01/24/24 03:35 Nasal Cannula 3.0 PG Care Time/CCT Total # of Minutes Spent Total Time Spent with Patient: Total time spent is greater than 50% in coordination of care (as documented) at patient's floor/unit and/or counseling patient: Coding Level of Care Code 18755 SUB INP/OBS CARE 05/24MIN Diagnoses Acute hypoxic respiratory failure J96.01 Aspiration pneumonia J69.0
--- NOTE | 2024-01-25 11:54 | Discharge Summary ---
Date of Service January 25, 2024 Admission HPI Per Admitting Provider 78-year-old female with past med history significant for left breast cancer status post partial mastectomy 2004, history of lateral squamous cell tongue cancer s/p radiation with PEG tube placement, hypothyroidism, age-related osteoporosis, history of sarcoidosis, history of paroxysmal atrial fibrillation, hypothyroidism, history of pleural effusion, history of kidney stones, history of overactive bladder comes from home with shortness of breath. She is a currently requiring BiPAP in the ER. in the room. states her shortness of breath started today. Has some cough. Has weakness. No fevers. Patient denies any headache. Denies chest pain. Denies nausea. Denies abdominal pain. Patient gets all nutrition from PEG tube. Ambulates without support at home as per . states patient had tongue cancer and when she talks it somewhat difficult to understand her. Currently saturating okay on BiPAP and hemodynamics are okay.Answering by nodding her head. helped with H&P Past medical history. As mentioned above. Past surgical history. PEG tube placement EGD. Endoscopy with Dr. Parekh despite dilatation. Left partial mastectomy. Thoracotomy with biopsy. Social history. . No smoking. No alcohol use. No drug use. Family history. Mother had colon cancer. Thyroid disorder. Father had diabetes. Heart disorder. Hypertension. Stroke. Admission Exam Per Admitting Provider General- Not in acute distress Head- atraumatic Eyes- PERRL. Neck- supple, no JVD. Lungs- diminished breath sounds bilaterally, no wheezing or crackles. Heart- regular rate and rhythm; no murmur, no gallop. Abdomen- normal bowel sounds, soft, peg tube site no erythema or drainage seen. No distension. Extremities- no pretibial edema, no erythema seen Neuro- alert, oriented PERRL, no facial palsy;moves extremities Principal Diagnosis Acute respiratory failure with hypoxia Aspiration pneumonia Atrial fibrillation with rapid ventricular rate Discharge Exam Constitutional + well hydrated and + thin; no acute distress Eyes PERRL, conjunctivae normal, anicteric sclerae ENMT Difficult verbalizing words due to previous surg Respiratory On room air, clear to auscultation, few rhonchi Cardiovascular Rate/Rhythm: regular rate and regular rhythm Gastrointestinal (Abdomen) normal bowel sounds, soft, nontender, no hepatosplenomegaly PEG tube in situ Musculoskeletal No pedal edema Neurologic PERRL EOMI Follows commands Discharge Data Allergies Allergy/AdvReac Type Severity Reaction Status Date / Time Penicillins Allergy Mild Verified 09/21/21 13:54 Consultations 01/15/24 23:46 ED Decision to Admit Stat 01/16/24 08:00 Consult Pulmonology Routine 01/18/24 08:27 Consult Nephrology Routine 01/18/24 08:30 Consult Cardiology Routine Ordered Studies 01/16/24 04:12 CT angio chest PE protocol Urgent Hospital Course (1) Acute hypoxic respiratory failure: 78-year-old female with past med history significant for left breast cancer status post partial mastectomy 2004, history of lateral squamous cell tongue cancer s/p radiation with PEG tube placement, hypothyroidism, age-related osteoporosis, history of sarcoidosis, history of paroxysmal atrial fibrillation, hypothyroidism, history of pleural effusion, history of kidney stones, history of overactive bladder comes from home with shortness of breath, cough and weakness Patient gets all nutrition from PEG tube. Ambulates without support at home as per . Had tongue cancer and when she talks it somewhat difficult to understand her. Acute hypoxic respiratory failure, Aspiration Pneumonia CT chest: 1. No pulmonary embolus. 2. Filling defects of the bronchi of the right lower lobe may represent mucous plugs and/or aspiration. 3. Airspace opacities of the right middle and lower lobes is concerning for multifocal pneumonia and/or aspiration. 4. 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 Initially requiring OxyMask 10 L, then HFNC and BIPAP intermittently Was managed with IV antibiotics, hypertonic saline nebs, vest therapy Pulmonology was involved in management Oxygen was weaned off 2 Step today show no oxygen at rest but 4L of NC with activity History of squamous cell carcinoma of tongue S/p radiation N.p.o. S/p PEG tube Nutrition and meds via PEG tube Continue home tube feeding History of left breast cancer Status post partial mastectomy Atrial fibrillation Developed rapid ventricular response during admission Likely secondary to hypoxia Cardiology was involved in management Patient converted to sinus rhythm last evening Home coreg stopped and discharged on metoprolol tartarate 50mg TID Continue Eliquis Hypothyroidism On Synthroid PT/OT recommended rehab but patient/ declined CM arranged HH/PT Total Time Total Time Spent Total Time Spent (In Minutes): 35 Total Time Includes: Examination of the Patient, Discharge Planning, Medication Reconciliation and Communication With Other Providers Discharge Plan Discharge Items Patient Disposition: Home - Home Health Services Reason For Visit: ACUTE RESP DISTRESS, PNEUMONIA Discharge Diagnosis: Acute respiratory failure with hypoxia Aspiration pneumonia Atrial fibrillation with rapid ventricular rate Activity: Resume your previous activity Non-emergency contact: Primary Care Provider Call non-emergency contact if: you have any medication questions and your symptoms worsen Follow-up/Referrals: Aayush Medrano M.D. [Outside Practitioners] - 01/30/24 9:00 am (Date & Time 01/30/2024 9:00 AM Provider Aayush Medrano MD Department Family Practice [facility] ) Diet: Nothing by Mouth and Other - See Diet Comment Diet Comment: Continue PEG tube feeding Addtl Attending Provider Instructions: Mrs Manuel Mckeon were admitted to the hospital and managed for the above listed diagnoses. You are being discharged with oxygen with activity at 4L via nasal cannula. Your Primary Doctor will reassess oxygen needs on follow up. You are being on antibiotic for 5 more days to complete treatment. Some changes were made to your heart medicines as follows: -Stop taking Carvedilol -Start taking Metoprolol tartarate 50mg three times a day Please ensure follow up with your Primary Doctor. It was a pleasure taking care of you. Pending Studies at Discharge: No Stand-Alone Forms: My [facility], Smoking Cessation Medications and DC Order Prescriptions: New amoxicillin-pot clavulanate 500-125 mg tablet 1 tab feeding tube TID 5 Days Qty: 15 0RF metoprolol tartrate 50 mg Tablet 50 mg feeding tube TID 30 Days Qty: 90 0RF Continued acetaminophen [Children's Acetaminophen] 160 mg/5 mL Liquid 640 mg feeding tube QID PRN (Reason: Pain) nutritional supplement-fiber Liquid 2 ea feeding tube TID Rx Instructions: 2 cans via feeding tube TID levothyroxine 100 mcg tablet 100 mcg feeding tube DAILY Eliquis 2.5 mg tablet 2.5 mg feeding tube BID Discontinued carvedilol 6.25 mg Tablet 6.25 mg PEG BIDM Qty: 60 0RF Discharge Orders: Discharge Order (Routine); Ordered 01/25/24 Ordered By: Alena Jara Admission Data Admit Date/Time: 01/16/24 03:51 Attending Provider: Alena Jara I. Admit Provider: Frank Corcoran Primary Care Provider: Topher Vasquez Other Providers: Frank Corcoran; Jordan Payton; Glen Montague; Sam Barajas Other Interventions: Discharge Summary Assessment (RN) Last Done: 01/25/24 11:59
--- NOTE | 2024-01-25 14:03 | Cardiology Progress Note ---
Date of Service January 25, 2024 Assessment & Plan (1) Paroxysmal atrial fibrillation: (2) Multifocal pneumonia: Plan: * Continue Unasyn and oxygen Plan 78-year-old female converted to normal sinus rhythm yesterday at approximately 6 PM. Continue metoprolol to tartrate to 50 mg 3 times daily. Discontinue short acting Cardizem. Continue reduced dose Eliquis 2.5 mg twice daily (age and weight). No need for repeat echocardiogram at this time. Cardiology will sign off, please call with additional concerns/questions. Admission and Anticipated Discharge Date Admission Date: January 16, 2024 Subjective 78-year-old female seen examined the bedside. Converted to sinus rhythm yesterday at approximately 6 PM. Patient unaware of rhythm change. Denies chest pain or shortness of breath. Scheduled for discharge later today. present at bedside. Offers no additional concerns/complaints. Review of Systems Review of Systems: All systems reviewed & are unremarkable except as noted in Subjective Physical Exam Constitutional: + ill appearing and + cachectic; no acut e distress Respiratory: no respiratory distress and does not use accessory muscles Auscultation: + diminished lung sounds (Bilateral, poor effort) and + rhonchi Cardiovascular: Rate/Rhythm: regular rate and regular rhythm Heart Sounds: normal S1 and normal S2; no murmur Vessels: no JVD Extremities: no edema Gastrointestinal (Abdomen): Inspection/Auscultation: abdomen not distended Percussion/Palpation: abdomen soft; abdomen nontender, no guarding and abdomen not rigid Neurologic: moves all extremities Results & Data Vital Signs (Past 12 Hours) Vital Signs Temp Pulse Pulse Pulse Pulse Pulse Pulse 01/25/24 12:10 36.5 C 01/25/24 11:59 36.5 C 79 01/25/24 08:58 94 H 92 H 90 98 H 01/25/24 08:20 36.5 C 01/25/24 08:15 01/25/24 07:23 81 01/25/24 06:59 01/25/24 05:00 01/25/24 04:07 01/25/24 02:42 36.4 C L Pulse Pulse Resp Resp Resp Resp Resp 01/25/24 12:10 61 17 01/25/24 11:59 82 18 01/25/24 08:58 82 18 18 16 18 01/25/24 08:20 82 18 01/25/24 08:15 01/25/24 07:23 01/25/24 06:59 87 16 01/25/24 05:00 01/25/24 04:07 01/25/24 02:42 80 14 Resp BP BP Pulse Ox Pulse Ox Pulse Ox Pulse Ox 01/25/24 12:10 119/65 98 01/25/24 11:59 124/75 109/72 93 01/25/24 08:58 14 84 L 86 L 90 01/25/24 08:20 124/75 93 01/25/24 08:15 01/25/24 07:23 01/25/24 06:59 92 01/25/24 05:00 01/25/24 04:07 01/25/24 02:42 121/63 94 Pulse Ox Pulse Ox Pulse Ox O2 Del Method O2 Del Method O2 Flow Rate O2 Flow Rate 01/25/24 12:10 Room Air 01/25/24 11:59 01/25/24 08:58 84 L 90 2 01/25/24 08:20 Nasal Cannula 3 01/25/24 08:15 Room Air 01/25/24 07:23 01/25/24 06:59 Nasal Cannula 1 01/25/24 05:00 94 Nasal Cannula 01/25/24 04:07 Nasal Cannula 1 01/25/24 02:42 Nasal Cannula 1.0 O2 Flow Rate O2 Flow Rate O2 Flow Rate 01/25/24 12:10 01/25/24 11:59 01/25/24 08:58 3 4 01/25/24 08:20 01/25/24 08:15 01/25/24 07:23 01/25/24 06:59 01/25/24 05:00 1 01/25/24 04:07 01/25/24 02:42 Laboratory Results Intake and Output 01/24/24 01/25/24 01/25/24 22:59 06:59 14:59 Intake Total 200 / 400 100 / 400 100 / 100 Output Total Balance 198 / 123 100 / 123 100 / 100 Intake: IV 200 / 400 100 / 400 100 / 100 Ampicillin/Sulbactam Sod 3,000 200 / 400 100 / 400 100 / 100 mg In 100 ml @ 200 mls/hr IV Q6H [facility] Rx#:[id number] Output: # Bowel Movements 2 / 2 Other: Other Intake Source NPO Patient NPO (feeding tube) # Unmeasured Voids 1 # Urine Diapers 2 Weight 51.8 kg 50.6 kg 50.6 kg Weight Measurement Method Built in [facility] Patient Weight 01/26/24 06:59 Weight 50.6 kg
[2024-01-25 14:36] VITALS: RESP 16; TEMP 98.2; O2SAT 97
[2024-01-25 15:41] VITALS: BP 109/72; PULSE 79
== END 2024-01-25 15:41 | disposition home health service (06) | DRG 177 ==
LOC: ED 22:32 → SUATTDRO 01-16 03:51 → EDINP 01-16 03:51 → 2S 01-16 16:03

== ENCOUNTER 2024-01-26 11:53 | Inpatient (IN) ==
--- OUTSIDE RECORDS SUMMARY | 2024-01-26 12:52 | External Medical Summary | Summary of Care ---
Author Name Unknown Organization [facility] Address [address] [place] [address] Phone [phone] Care Team Providers Care Kettle Firer Name Role Phone Aayush Medrano MD Primary Care Provider Reason for Visit * Reason Onset Date Comments Health Maintenance 01/17/2024 Encounter Details Date Type Department Care Team (Late st Contact Info) Description 01/17/2024 Telephone Family Practice [facility] [address] [place] [address] Aayush Medrano MD [address] [place] [address] Health Maintenance Allergies Active Allergy Reactions Criticality Noted Date Comments Penicillins 10/25/1999 rash and given shot as a child, has tolerated augmentin ok as well as cephalosporin documented as of this encounter (statuses as of 01/17/2024) Medications Medication Sig Dispensed Refills Start Date End Date Status Acetaminophen Childrens 160 MG/5ML Oral Solution Administer into feeding tube 640 mg 4 times a day as needed for Pain. Active Fibersource HN Oral LiquidIndications:Sev ere protein-calorie malnutrition (HCC) Administer 6 cans daily as directed via G tube via bolus syringe 07057 mL 11 07/11/2023 Active Magic Mouthwash (Qifrivqbc-Ooqogusi-W ystatin) oral solution Swish and spit 15 [...] 180 Tablet 3 12/21/2023 Active Magic Mouthwash (Kanzkvhcc-Jlymivra-L ystatin) oral solution Swish and spit 15 mL in the morning and 15 mL before bedtime. 300 mL 2 01/08/2024 Active Hospital, Clinic, or Other Facility Administered Medication Ordered Dose Route Frequency Start Date End Date Status Denosumab (Prolia) subcut inj 60 mgIndications:Senile osteoporosis 60 mg SC [id number] 07/11/2023 07/05/2024 Active documented as of this encounter (statuses as of 01/17/2024) Active Problems Problem Noted Date Diagnosed Date [...] as of this encounter (statuses as of 01/17/2024) Resolved Problems Problem Noted Date Diagnosed Date [...] as of this encounter (statuses as of 01/17/2024) Immunizations Name Administration Dates Next Due COVID-19 mRNA, LNP-s, No Pre serve, 2-Dose Series ([employer]) 03/16/2021,08/12/2020,07/22/2020 Covid-19, Mrna, Lnp-s, Pf, B ivalent, [...] encounter Miscellaneous Notes * Telephone Encounter - Marcelino LalLEE montiel - 01/17/2024 8:36 AM EDT Care Gaps Comprehensive Care Outreach Last Office/Telemedicine Visit: 11/27/2023 (in office), Visit date not found (telemedicine) Next Office Visit: 06/03/2024 Hemoglobin AIC Results: No results found for: "HEMOGLOBIN A1C" BP Readings from Last 1 Encounters: 01/03/24 124/66 Reviewed Health Maintenance below: Health Maintenance Topic Date Due Adult Wellness Visit 10/11/2021 Influenza Vaccine (FLU shot) (1) 12/30/2023 TSH 12/30/2023 Depression Screening 11/29/2024 Lab already ordered awv Care Gap Outreach Action Taken: Unable to reach busy signal documented in this encounter Plan of Treatment Upcoming Encounters Date Type Department Care Team (Late st Contact Info) Description 02/27/2024 2:15 PM EDT Office Visit Urogynecology [facility] [address] [place] [address] Reagan Duckworth MD [address] [place] [address] Nurse Huey Ambrocio [facility] [address] [place] [address] 03/12/2024 12:30 PM EST Office Visit Otolaryngology [facility] [address] [place] [address] Tiara Conklin PA-C [address] [place] [address] Kailyn Bah Au.D. [address] [place] [address] 04/02/2024 11:00 AM EST Office Visit Cardiology, [facility] [address] [place] [address] Allan Siddiqui PARachellC [address] [place] [address] 06/03/2024 11:20 AM EST Office Visit Family Practice [facility] [address] [facility] [place] [address] Aayush Medrano MD [address] [place] [address] 06/09/2024 10:00 AM EST Office Visit Pulmonary Medicine, [facility] [address] [facility] [place] [address] Ger Lu MD [address] [place] [address] 07/09/2024 11:30 AM EDT Office Visit Urology, [facility] [address] [facility] [place] [address] Spencer Kumari MD [address] [place] [address] 07/18/2024 2:00 PM EDT Office Visit Rheumatology [address] [place], [place] [address] Edmond Michel CRNP [facility] [place], [place] [address] Health Maintenance Due Date Last Done Comments [...] D LEVEL ONCE IN A LIFETIME-USE SMARTSET# [id number] Completed 06/27/2023, 01/10/2021, 09/25/2008 HPV (Gardasil) Vaccine [...] patient or by statute hierarchy) Care Teams Kettle Firer Relationship Specialty Start Date End Date Aayush Medrano MD [address] [place] [address] PCP - General Family Medicine 08/23/23 documented as of this encounter
[2024-01-26 13:12] LABS: Albumin Level 3.7 gm/dl (3.4-5.0); BUN Creatinine Ratio 28.8 (10-20); Bilirubin Direct 0.2 mg/dl (0-0.2); Bilirubin,Total 1.2 mg/dl (0.2-1.0); Creatinine Clr Calc Pharmacy 57.8 ml/min; Est GFR (African American) 97.4 ml/min; Potassium 4.2 mmol/L (3.5-5.1); Total Protein 7.9 gm/dl (6.0-8.3)
--- NOTE | 2024-01-26 13:41 | Emergency Department Note ---
Impression & Plan Aspiration pneumonia ED Provider Note NAME: LAKESHA WYNNE AGE: 78 SEX: F : 1945 ARRIVES VIA: Ambulance INFORMANT: Patient, ED PROVIDER(S): Geovani Yates MD CHIEF COMPLAINT: Vomiting, shortness of breath HPI: This is a 78-year-old female with history of breast cancer status post partial mastectomy, lateral squamous tongue cancer s/p radiation, PEG tube placement, hypothyroidism, osteoporosis, sarcoidosis, paroxysmal atrial fibrillation, presenting for shortness of breath, vomiting. Patient was recently in the hospital and discharged yesterday. Patient was discharged on oxygen and has had increasing weakness, cough and vomiting. She has not take care of her self at home. ROS: See above HPI for pertinent positives & negatives. A total of 10 systems reviewed and were otherwise negative. PAST MEDICAL HISTORY: See Below PAST SURGICAL HISTORY: See Below FAMILY HISTORY: See Below SOCIAL HISTORY: See Below HOME MEDICATIONS: See Below ALLERGIES: See Below VITALS: See Below PHYSICAL EXAMINATION: General: Chronically ill-appearing, kyphotic Head: Normocephalic and atraumatic Eyes: Normal inspection, extraocular muscles intact Ear, nose, throat: Normal external exam Neck: Normal range of motion Respiratory: Rhonchorous in all lung pak, upper airway sounds with congestion Cardiovascular: Regular rate/rhythm, no murmur GI: soft, nontender, no guarding or rebound, PEG tube in place Extremities: nontender, moves all extremities Neuro: The patient awake and alert, appropriately conversive, no focal deficits, symmetric faces Skin: Warm, dry, and intact MEDICAL DECISION MAKING: This is a 78-year-old female presenting for shortness of breath, vomiting and weakness. Patient was recently discharged yesterday for acute hypoxic respiratory failure from aspiration pneumonia. Patient is weaned down to 4 L. Currently she is resting with 4 L and satting 98% however she is spitting up into a emesis bag. She has significant secretions and congestion. -Bloodwork is reviewed showing no significant leukocytosis, anemia, electrolyte or creatinine abnormality -Urinalysis revealed no signs of UTI -Chest x-ray reveals dense airspace consolidation in the right lower lobe similar to previous concerning for pneumonia -Patient is having significant secretions and requires suctioning. She will require admission for continued pneumonia treatment likely aspiration pneumonia -Discussed with [facility] Hospitalist service Differential diagnosis: Aspiration pneumonia, pneumonitis, failure to thrive, PE ER treatment provided: See below Independent History obtained from: Diagnostics interpreted by me: ECG: ECG independently interpreted by me with normal sinus rhythm, rate of 70, first-degree AV block, normal QRS, normal QTc, no ST segment elevations consistent with STEMI criteria Cardiac Monitoring: An order was placed for continuous cardiac monitoring. The monitor shows a rate of 62 with sinus rhythm. Laboratory studies: As stated above and show below. Imaging studies: See below. Past Med/Surg History Problem List (Updated 01/27/24 @ 19:59 by Geovani Yates MD) Aspiration pneumonia (Acute) PEG tube malfunction Physical deconditioning Ambulatory dysfunction Paroxysmal atrial fibrillation Acute hypernatremia Atrial fibrillation with RVR Aspiration pneumonia Acute hypoxic respiratory failure (Acute) Multifocal pneumonia Atrial flutter Abnormal EKG Acute hypoxic respiratory failure Respiratory acidosis Metabolic encephalopathy Lactic acidosis Acute mastitis of left breast Severe sepsis Elevated troponin (Acute) Hypotension (Acute) Elevated lactic acid level (Acute) Sepsis (Acute) Protein calorie malnutrition Oropharyngeal dysphagia Confusion Lightheadedness (Acute) Nasal congestion (Acute) Acute UTI (urinary tract infection) (Acute) DVT prophylaxis S/P percutaneous endoscopic gastrostomy (PEG) tube placement (Chronic) Influenza A Pneumonia (Acute) 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" Breast cancer (Chronic) "s/p lumpectomy and node dissection in 2004, radiation completed 2005, chemo [id number]" Sarcoidosis (Chronic) "s/p lung biopsy" Dyslipidemia (Chronic) Hypothyroidism (Chronic) Osteoporosis (Chronic) GERD (gastroesophageal reflux disease) (Chronic) 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 follows with [place] neurosurgery" Family History Mother Colon cancer Social History Smoking Status: Never smoker Hx Alcohol Use: No Hx Substance Use: No Preferred Language: Greek Communication Ability: Effective Medical Record Technician Required: No Beliefs That Will Affect Care: None marital status: Current Living Situation: Spouse Other Information That Helps Us Care for You: No Feels Safe at Home: Yes Safety Concerns: Feels Safe At This Time Assistive Devices: Denture - Lower Allergies Allergies Allergy/AdvReac Type Severity Reaction Status Date / Time Penicillins Allergy Mild Verified 09/21/21 13:54 Home Meds Home Medications Medication Instructions Recorded Confirmed acetaminophen 160 mg/5 mL oral 640 mg feeding tube QID PRN Pain 09/21/21 01/26/24 liquid (Children's Acetaminophen) nutritional supplement-fiber oral 2 ea feeding tube TID 09/21/21 01/26/24 liquid levothyroxine 100 mcg tablet 100 mcg feeding tube DAILY 07/18/23 01/26/24 apixaban 2.5 mg tablet (Eliquis) 2.5 mg feeding tube BID 01/16/24 01/26/24 Previous Rx's Medication Instructions Recorded amoxicillin 500 mg-potassium 1 tab feeding tube TID 5 days #15 01/25/24 clavulanate 125 mg tablet tabs metoprolol tartrate 50 mg tablet 50 mg feeding tube TID 30 days #90 01/25/24 tabs Results & Data (ED) Vital Signs Vital Signs - 24 hr 01/26/24 12:11 01/26/24 12:17 Temperature 36.6 C Temperature Source Axillary Pulse Rate 74 66 Pulse Rhythm Regular Pulse Strength Normal Respiratory Rate 18 Respiratory Effort / Characteristics Non-Labored Spontaneous Respiratory Depth Normal Respiratory Pattern Regular Blood Pressure 178/88 H Blood Pressure Mean 118 Pulse Oximetry 98 Oxygen Delivery Method Nasal Cannula Sepsis Recent Fever Within 48 Hours No Sepsis New/Unexplained Change in Mental Status No Sepsis Action Taken by Nursing No Action Required Laboratory Data 01/27/24 05:55 01/27/24 05:55 Lab Results 01/26/24 01/26/24 01/26/24 Range/Units 12:37 13:40 14:19 WBC 10.76 (4.8-10.8) K/ul RBC 4.21 (4.20-5.40) M/uL Hgb 12.7 (12.0-16.0) g/dl Hct 39.1 (37.0-47.0) % MCV 92.9 (80.0-100.0) fL MCH 30.2 (25.0-34.0) pg MCHC 32.5 (32.0-36.0) g/dL RDW Std Deviation 50.7 H (36.4-46.3) fL RDW Coeff of Elliot 15.0 H (11.5-14.5) % Plt Count 314 (130-400) K/uL MPV 11.5 (9.4-12.4) fL Immature Gran % (Auto) 0.7 % Neut % (Auto) 92.6 % Lymph % (Auto) 4.3 % [place] % (Auto) 2.3 % Eos % (Auto) 0.0 % Baso % (Auto) 0.1 % Neut # (Auto) 9.97 H (1.40-6.50) K/uL Lymph # (Auto) 0.46 L (1.20-3.40) K/uL [place] # (Auto) 0.25 (0.11-0.59) K/uL Eos # (Auto) 0.00 (0.00-0.50) K/uL Baso # (Auto) 0.01 (0.00-0.20) K/uL Immature Gran # (Auto) 0.07 (0.01-0.20) K/uL VBG pH 7.36 (7.36-7.41) VBG pCO2 54 H (38-50) mmHg VBG pO2 < 20 mmHg VBG HCO3 31 mmol/L VBG O2 Saturation < 60.0 % VBG Base Excess 3.8 mEq/L Sodium 136 (136-145) mmol/L Potassium 4.2 (3.5-5.1) mmol/L Chloride 101 (98-107) mmol/L Carbon Dioxide 26 (21-32) mmol/L Anion Gap 9 (3-11) BUN 19 (6-23) mg/dl Creatinine 0.66 (0.6-1.2) mg/dl Est Cr Clr Drug Dosing 57.8 ml/min Est GFR ( Amer) 97.4 ml/min Est GFR (Non-Af Amer) 84.0 ml/min BUN/Creatinine Ratio 28.8 H (10-20) Glucose 104 H (70-99(Fasting)) mg/dl Lactate 1.1 (0.4-2.0) mmol/L Calcium 9.0 (8.6-10.3) mg/dl Total Bilirubin 1.2 H (0.2-1.0) mg/dl Direct Bilirubin 0.2 (0-0.2) mg/dl AST 32 (13-39) U/L ALT 28 (7-52) U/L Alkaline Phosphatase 98 (34-104) U/L Total Protein 7.9 (6.0-8.3) gm/dl Albumin 3.7 (3.4-5.0) gm/dl Lipase 25 (11-82) U/L Administered Medications Albuterol (Albut/Ipratrop 3mg/0.5mg Neb 3 Ml Vial) 3 ml NEB Q6R NERY; Protocol Stop: 02/26/24 00:59 Last Admin: 01/27/24 12:33 Dose: 3 ml Documented By: Admin: 01/27/24 07:12 Dose: 3 ml Documented By: Admin: 01/27/24 00:18 Dose: Not Given Documented By: ADINA Apixaban (Apixaban 2.5 Mg Tab) 2.5 mg PO BID [facility] Stop: 02/26/24 01:24 Last Admin: 01/27/24 08:30 Dose: Not Given Documented By: Admin: 01/27/24 01:34 Dose: 2.5 mg Documented By: SURY Ampicillin Sodium/Sulbactam Sodium (Unasyn) 3,000 mg in 100 mls @ 200 mls/hr IV Q6H NERY Stop: 02/02/24 17:59 Last Infusion: 01/27/24 18:21 Dose: Infused Documented By: Admin: 01/27/24 17:35 Dose: 200 mls/hr Documented By: Infusion: 01/27/24 12:57 Dose: Infused Documented By: Admin: 01/27/24 12:17 Dose: 200 mls/hr Documented By: Infusion: 01/27/24 07:54 Dose: Infused Documented By: Admin: 01/27/24 05:52 Dose: 200 mls/hr Documented By: Infusion: 01/27/24 01:28 Dose: Infused Documented By: Admin: 01/27/24 00:58 Dose: 200 mls/hr Documented By: Infusion: 01/26/24 20:19 Dose: Infused Documented By: [id number] Admin: 01/26/24 19:43 Dose: 200 mls/hr Documented By: [id number] Acetaminophen (Ofirmev) 1,000 mg in 100 mls @ 400 mls/hr IV Q8H PRN PRN Reason: Pain or Fever Stop: 01/29/24 18:57 Last Infusion: 01/26/24 22:51 Dose: Infused Documented By: Admin: 01/26/24 22:11 Dose: 400 mls/hr Documented By: [id number] Dextrose/Sodium Chloride (D5w And Nss) 1,000 mls @ 60 mls/hr IV .[id number] [facility] Stop: 02/26/24 10:29 Last Infusion: 01/27/24 18:21 Dose: 60 mls/hr Documented By: Infusion: 01/27/24 17:35 Dose: 0 mls/hr Documented By: Admin: 01/27/24 10:42 Dose: 60 mls/hr Documented By: AM Heparin Sodium/Dextrose (Heparin Sodium/Dextrose) 25,000 units in 500 mls @ 13 mls/hr IV .Q24H [facility]; Protocol Stop: 02/26/24 13:59 Last Admin: 01/27/24 16:01 Dose: 650 units/hr, 13 mls/hr Documented By: LM Co-signed By: Levothyroxine Sodium (Levothyroxine Sodium 100 Mcg Tablet) 100 mcg GT DAILYBB [facility] Stop: 02/26/24 06:29 Last Admin: 01/27/24 05:12 Dose: Not Given Documented By: SURY Midodrine (Midodrine Hcl 2.5 Mg Tab) 5 mg PO TID@0800,1200,1700 [facility] Stop: 02/26/24 07:59 Last Admin: 01/27/24 12:22 Dose: Not Given Documented By: Admin: 01/27/24 08:29 Dose: Not Given Documented By: AM Sodium Chloride (Sodium Chlor 7% 4 Ml Neb) 4 ml NEB BIDR [facility] Stop: 02/25/24 18:59 Last Admin: 01/27/24 07:12 Dose: 4 ml Documented By: Admin: 01/26/24 20:02 Dose: 4 ml Documented By: ADINA Discontinued Medications Acetaminophen (Acetaminophen 1000 Mg/100 Ml Iv) Confirm Administered Dose 1,000 mg IV .STK-MED ONE Stop: 01/26/24 17:19 Last Admin: 01/26/24 17:19 Dose: Not Given Documented By: RADHA Albuterol (Albut/Ipratrop 3mg/0.5mg Neb 3 Ml Vial) 3 ml NEB NOW STA; Protocol Stop: 01/26/24 19:21 Last Admin: 01/26/24 20:58 Dose: 3 ml Documented By: ADINA Apixaban (Apixaban 2.5 Mg Tab) 2.5 mg PO BID NERY Stop: 02/25/24 20:59 Last Admin: 01/27/24 00:46 Dose: Not Given Documented By: SURY Furosemide (Furosemide Inj 20 Mg/2 Ml Vial) 20 mg IV ONE ONE Stop: 01/26/24 21:48 Last Admin: 01/26/24 22:02 Dose: 20 mg Documented By: [id number] Furosemide (Furosemide Inj 20 Mg/2 Ml Vial) 20 mg IV ONE ONE Stop: 01/26/24 23:36 Last Admin: 01/27/24 00:10 Dose: 20 mg Documented By: SURY Sodium Chloride (Nss) 1,000 mls @ 80 mls/hr IV .[id number] NERY Stop: 01/27/24 05:44 Last Infusion: 01/26/24 19:48 Dose: Infused Documented By: [id number] Infusion: 01/26/24 18:33 Dose: 0 mls/hr Documented By: Admin: 01/26/24 17:23 Dose: 80 mls/hr Documented By: RADHA Acetaminophen (Ofirmev) 1,000 mg in 100 mls @ 400 mls/hr IV NOW STA Stop: 01/26/24 17:27 Last Infusion: 01/26/24 17:34 Dose: Infused Documented By: Admin: 01/26/24 17:19 Dose: 400 mls/hr Documented By: RADHA Sodium Chloride (Nss) 500 mls @ 500 mls/hr IV .Q1H NERY Stop: 01/26/24 19:29 Last Infusion: 01/26/24 19:25 Dose: Infused Documented By: [id number] Admin: 01/26/24 18:33 Dose: 500 mls/hr Documented By: MARYLIN Albumin Human (Albumin 25%) 25 gm in 100 mls @ 50 mls/hr IV ONE ONE Stop: 01/26/24 21:18 Last Infusion: 01/26/24 21:36 Dose: Infused Documented By: [id number] Admin: 01/26/24 19:28 Dose: 50 mls/hr Documented By: [id number] Dexamethasone 4 mg/ Syringe 1 mls @ 1 mls/min IV ONE ONE Stop: 01/26/24 19:54 Last Admin: 01/26/24 20:17 Dose: 1 mls/min Documented By: [id number] Albumin Human (Albumin 25%) 25 gm in 100 mls @ 50 mls/hr IV ONE ONE Stop: 01/26/24 23:46 Last Infusion: 01/26/24 23:59 Dose: Infused Documented By: Admin: 01/26/24 22:01 Dose: 50 mls/hr Documented By: Lorenzo Magnesium Sulfate/Dextrose (Magnesium Sulfate / D5w) 1 gm in 100 mls @ 50 mls/hr IV ONE ONE Stop: 01/27/24 00:31 Last Infusion: 01/27/24 01:38 Dose: Infused Documented By: Admin: 01/26/24 23:38 Dose: 50 mls/hr Documented By: SURY Albumin Human (Albumin 25%) 12.5 gm in 50 mls @ 50 mls/hr IV ONE ONE Stop: 01/27/24 00:34 Last Infusion: 01/27/24 01:06 Dose: Infused Documented By: Admin: 01/27/24 00:06 Dose: 50 mls/hr Documented By: SURY Metoprolol Tartrate (Metoprolol Tartrate 50 Mg Tab) 50 mg PEG NOW STA Stop: 01/26/24 15:27 Last Admin: 01/26/24 16:17 Dose: 50 mg Documented By: RADHA Midodrine (Midodrine Hcl 2.5 Mg Tab) 5 mg PO NOW STA Stop: 01/26/24 21:43 Last Admin: 01/27/24 00:47 Dose: Not Given Documented By: SURY Midodrine (Midodrine Hcl 2.5 Mg Tab) 5 mg PO NOW STA Stop: 01/27/24 01:22 Last Admin: 01/27/24 01:35 Dose: 5 mg Documented By: SURY Discharge Plan Visit Data Chief Complaint: Vomiting Stated Complaint: ILLNESS ED Provider: Geovani Yates Discharge Problem: Aspiration pneumonia Patient Disposition: Admitted As Inpatient Discharge Instructions Interventions: ED Discharge Assessment Last Done: 01/26/24 17:31
[2024-01-26 13:57] LABS: Hematocrit (blood only) 39.1 % (37.0-47.0); Hemoglobin 12.7 g/dl (12.0-16.0); Mean Corpuscular Hemoglobin 30.2 pg (25.0-34.0); Mean Corpuscular Hgb Conc 32.5 g/dL (32.0-36.0); Mean Corpuscular Volume 92.9 fL (80.0-100.0); Mean Platelet Volume 11.5 fL (9.4-12.4); Platelet Count 314 K/uL (130-400); RDW Standard Deviation 50.7 fL (36.4-46.3); Red Blood Count 4.21 M/uL (4.20-5.40); White Blood Count 10.76 K/ul (4.8-10.8)
[2024-01-26 14:07] LABS: Adenovirus PCR Not Detected (NotDetected); Bordetella parapertussis PCR Not Detected (NotDetected); Bordetella pertussis PCR Not Detected (NotDetected); Chlamydia pneumoniae PCR Not Detected (NotDetected); Coronavirus 229E PCR Not Detected (NotDetected); Coronavirus CoV-2 (COVID19)PCR Not Detected (NotDetected); Coronavirus HKU1 PCR Not Detected (NotDetected); Coronavirus NL63 PCR Not Detected (NotDetected); Coronavirus OC43PCR Not Detected (NotDetected); Human Metapneumovirus PCR Not Detected (NotDetected); Influenza A PCR Not Detected (NotDetected); Influenza B PCR Not Detected (NotDetected); Mycoplasma pneumoniae PCR Not Detected (NotDetected); Parainfluenza Virus 1 PCR Not Detected (NotDetected); Parainfluenza Virus 2 PCR Not Detected (NotDetected); Parainfluenza Virus 3 PCR Not Detected (NotDetected); Parainfluenza Virus 4 PCR Not Detected (NotDetected); Respiratory Syncytial VirusPCR Not Detected (NotDetected); Rhinovirus/Enterovirus PCR Not Detected (NotDetected)
[2024-01-26 14:16] LABS: Basophils # (auto) 0.01 K/uL (0.00-0.20); Basophils % (auto) 0.1 %; Immature Granulocytes # (auto) 0.07 K/uL (0.01-0.20); Immature Granulocytes % (auto) 0.7 %; Lymphocytes # (auto) 0.46 K/uL (1.20-3.40); Lymphocytes % (auto) 4.3 %; Monocytes # (auto) 0.25 K/uL (0.11-0.59); Monocytes % (auto) 2.3 %; Neutrophils # (auto) 9.97 K/uL (1.40-6.50); Neutrophils % (auto) 92.6 %
--- NOTE | 2024-01-26 14:26 | XRay Report ---
SINGLE VIEW CHEST CLINICAL HISTORY: Cough and pneumonia. FINDINGS: 3 AP, portable, upright chest radiographs are compared to study dated 01/23/2024 and correla leon with chest CT dated 01/16/2024. The heart is enlarged. There is mild pulmonary vascular congestion . Again seen is dense airspace consolidation in the right lower lung with a small right pleural effus ion. Scarring/atelectasis is noted at the left lung base. No pneumothorax is seen. The skeletal struc tures are osteopenic. There are chronic/healed left-sided rib fractures. IMPRESSION: 1. Cardiomegaly with mild pulmonary vascular congestion. 2. Dense airspace consolidation in the right lower lung and a small right pleural effusion is similar to previous and typical for pneumonia. Continued follow-up to resolution is recommended. ACT 112: Negative or not required by law. Electronically signed by: Howie Proctor M.D. 01/26/2024 2:25 PM
[2024-01-26 14:27] LABS: Base Excess VBG 3.8 mEq/L; HCO3 VBG 31 mmol/L; Oxygen Saturation VBG < 60.0 %; PCO2 VBG 54 mmHg (38-50); PO2 VBG < 20 mmHg; pH VBG 7.36 (7.36-7.41)
--- NOTE | 2024-01-26 14:59 | History & Physical Report ---
<Statement entered by Sachin Meng MD - 01/26/24 16:17> Attending Addendum: Case reviewed with the advanced practitioner. I have personally performed a history and physical examination on the patient. I have reviewed the advanced practitioner's documentation on the date of service referenced in note, and I agree with, and take responsibility for the plan of care. Previously seen for CAP, on oral abx via PEG tube. Difficult to evaluate mental status due to inability to speak well 2/2 tongue cancer. Represents due to ambulatory dysfunction likely needing placement. PT/OT. 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 Just discharged yesterday, 01/25/2024 for aspiration pneumonia and e asily fatigued and not ambulating well at home. Patient with physical deconditioning 2/2 recent PNA and hospitalization. Fall precautions PT/OT eval Patient and state initially thought could try home however realize patient needs more help and are willing to consider rehab (3) Aspiration pneumonia: Plan: Discharged 01/25/2024 for aspiration pneumonia, acute hypoxic respiratory failure, that required high flow oxygen, intermittent bipap. Initially treated with invanz and vancomycin then switched to Unasyn per pulm recommendations as well as treated with hypertonic saline and percussive vest therapy. 2 step completed prior to dc showing no oxygen at rest but 4L with activity and she was discharged on Augmentin In ER patient afebrile, P: 74, R: 18, BP 178/88, 98% on 4L via NC Respiratory biofire negative. No leukocytosis CXR: Cardiomegaly with mild pulmonary vascular congestion. Dense airspace consolidation in the right lower lung and a small right pleural effusion is similar to previous and typical for pneumonia. Continued follow-up to resolution is recommended. Continue supplemental oxygen as needed Will continue Augmentin to finish course as no acute worsening currently from respiratory status Xopenex nebs prn Hypertonic saline nebs BID to assist in pulmonary toilet CBC, BMP in am (4) Paroxysmal atrial fibrillation: Plan: Recent admission carvedilol was discontinued and changed to metoprolol tartrate 50 mg TID Anticoagulated on Eliquis Continue Eliquis and metoprolol tartrate (5) Tongue cancer: (6) S/P percutaneous endoscopic gastrostomy (PEG) tube placement: (7) Oropharyngeal dysphagia: (8) Protein calorie malnutrition: (9) H/O partial mastectomy: Plan: History of squamous cell carcinoma of tongue S/P radiation S/P PEG Tube History of left breast cancer Status post partial mastectomy NPO status at baseline Nutrition and meds via PEG tube Government Affairs Director consult. Will plan on continuing home tube feeds (10) Hypothyroidism: Plan: Continue levothyroxine DVT Prophylaxis On Eliquis Admit med tele DNR/DNI as per discussion with pt and pt's Follows with Dr Aayush Medrano for routine care Pt was seen and care coordinated with Dr Meng. See addendum I spent a total of 76 minutes reviewing notes, outpatient records, labs, medication, coordinating, documenting and providing care for this patient excluding time spent in the performance of separately billed services. 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 Per inpatient chart review patient with hospitalization 01/16/2024- 01/25/2024 for aspiration pneumonia, acute hypoxic respiratory failure, atrial fibrillation required high flow oxygen, intermittent bipap. Initially treated with invanz and vancomycin. Pulmonology had recommended 2 weeks Unasyn and hypertonic saline and percussive vest therapy. Carvedilol was discontinued and changed to metoprolol tartrate 50 mg 3 times daily. 2 step completed showing no oxygen at rest but 4L with activity and she was discharged on Augmentin and metoprolol tartrate. states that patient was weak during her recent hospitalization and prior to discharge it was discussed about considering rehab however patient opted to go home. Patient's reports he thought that he could manage patient at home. [facility] bedroom is on second floor. Last night patient was "played out" after ambulating into the house and she was unable to go upstairs to her bedroom. Patient slept on first floor. States today patient continued to have generalized weakness and attempted to ambulate upstairs and was only able to go for steps and felt fatigued and needed to stop. [facility] was discharged home with oxygen and have been using intermittently at 4 L. [facility] has been checking pulse ox and has been ranging from 92-94 to high 80s. Patient has not been ambulating much at home. Denies any fevers since returning home. Denies any increased shortness of breath or increased cough. Reports at baseline patient has chronic oral secretions and drooling. Denies any increased oral secretions or drooling. Denies any choking since going home. Does not take anything by mouth at baseline. Limited talking at baseline. Patient's states difficulty with ambulating and deconditioning is the reason for returning to ER and otherwise feels patient close to her baseline. Patient and deny and vomiting or noted choking since returning home from hospital in past 24 hours. Denies fever/chills, diarrhea, constipation, HEWITT, dizziness, syncope, CP, palpitations, rhinorrhea, abdominal pain, extremity edema, rashes, urinary symptoms. Denies fall at home. Allergies Allergy/AdvReac Type Severity Reaction Status Date / Time Penicillins Allergy Mild Verified 09/21/21 13:54 Home Medications Medication Instructions Recorded Confirmed Type acetaminophen 160 mg/5 mL oral 640 mg feeding tube QID PRN Pain 09/21/21 01/26/24 History liquid (Children's Acetaminophen) nutritional supplement-fiber oral 2 ea feeding tube TID 09/21/21 01/26/24 History liquid levothyroxine 100 mcg tablet 100 mcg feeding tube DAILY 07/18/23 01/26/24 History apixaban 2.5 mg tablet (Eliquis) 2.5 mg feeding tube BID 01/16/24 01/26/24 History amoxicillin 500 mg-potassium 1 tab feeding tube TID 5 days #15 01/25/24 01/26/24 Rx clavulanate 125 mg tablet tabs metoprolol tartrate 50 mg tablet 50 mg feeding tube TID 30 days #90 01/25/24 01/26/24 Rx tabs Past Med/Surg History Problem List (Updated 01/26/24 @ 15:44 by Nova Hagen PA-C) Physical deconditioning Ambulatory dysfunction Paroxysmal atrial fibrillation Acute hypernatremia Atrial fibrillation with RVR Aspiration pneumonia Acute hypoxic respiratory failure (Acute) Multifocal pneumonia Atrial flutter Abnormal EKG Acute hypoxic respiratory failure Respiratory acidosis Metabolic encephalopathy Lactic acidosis Acute mastitis of left breast Severe sepsis Elevated troponin (Acute) Hypotension (Acute) Elevated lactic acid level (Acute) Sepsis (Acute) Protein calorie malnutrition Oropharyngeal dysphagia Confusion Lightheadedness (Acute) Nasal congestion (Acute) Acute UTI (urinary tract infection) (Acute) DVT prophylaxis S/P percutaneous endoscopic gastrostomy (PEG) tube placement (Chronic) Influenza A Pneumonia (Acute) 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" Breast cancer (Chronic) "s/p lumpectomy and node dissection in 2004, radiation completed 2005, chemo [id number]" Sarcoidosis (Chronic) "s/p lung biopsy" Dyslipidemia (Chronic) Hypothyroidism (Chronic) Osteoporosis (Chronic) GERD (gastroesophageal reflux disease) (Chronic) 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 follows with [facility]" Family History Mother Colon cancer Social History Smoking Status: Never smoker Hx Alcohol Use: No Hx Substance Use: No Preferred Language: Armenian Communication Ability: Effective Building Services Supervisor Required: No Beliefs That Will Affect Care: None marital status: Current Living Situation: Spouse Feels Safe at Home: Yes Assistive Devices: None Review of Systems Review of Systems: All systems reviewed & are unremarkable except as noted in HPI & below Physical Exam Physical Exam: General: +chronic ill appearing, no distress on current 3L via NC with O2 sat 97%, thin elderly female +kyphosis and sitting slumped forward Head: normocephalic, atraumatic Eyes: PERRL, EOM's intact, conjunctiva non-injected, anicteric ENT: normal inspection external ears, nose, mucous membranes moist, + drooling saliva Neck: supple, trachea midline Lungs: no respiratory distress on current 3L via NC with O2 sat 97%, +scattered rhonchi CV: RRR, no pretibial edema Abd: feeding tube in place, normal BS, soft, non-tender Ext: no cyanosis, no calf tenderness Neuro: +drowsy, but awakens with voice, unable to speak much (chronic from prior radiation), normal affect Skin: warm, dry Results & Data Results & Data Vital Signs (Past 12 Hours) Vital Signs Temp Pulse Resp BP Pulse Ox O2 Del Method 01/26/24 12:17 66 01/26/24 12:11 36.6 C 74 18 178/88 H 98 Nasal Cannula Laboratory Results Short CBC 01/26/24 Range/Units 13:40 WBC 10.76 (4.8-10.8) K/ul Hgb 12.7 (12.0-16.0) g/dl Hct 39.1 (37.0-47.0) % Plt Count 314 (130-400) K/uL BMP 01/26/24 12:37 Sodium 136 Potassium 4.2 Chloride 101 Carbon Dioxide 26 BUN 19 Creatinine 0.66 Glucose 104 H Calcium 9.0 Liver Function 01/26/24 Range/Units 12:37 Total Bilirubin 1.2 H (0.2-1.0) mg/dl Direct Bilirubin 0.2 (0-0.2) mg/dl AST 32 (13-39) U/L ALT 28 (7-52) U/L Alkaline Phosphatase 98 (34-104) U/L Albumin 3.7 (3.4-5.0) gm/dl Diagnostic Findings Chest X-Ray 01/26/24 12:36 SINGLE VIEW CHEST CLINICAL HISTORY: Cough and pneumonia. FINDINGS: 3 AP, portable, upright chest radiographs are compared to study dated 01/23/2024 and correlated with chest CT dated 01/16/2024. The heart is enlarged. There is mild pulmonary vascular congestion. Again seen is dense airspace consolidation in the right lower lung with a small right pleural effusion. Scarring/atelectasis is noted at the left lung base. No pneumothorax is seen. The skeletal structures are osteopenic. There are chronic/healed left-sided rib fractures. IMPRESSION: 1. Cardiomegaly with mild pulmonary vascular congestion. 2. Dense airspace consolidation in the right lower lung and a small right pleural effusion is similar to previous and typical for pneumonia. Continued follow-up to resolution is recommended. ACT 112: Negative or not required by law. Electronically signed by: Howie Proctor M.D. 01/26/2024 2:25 PM (8) Protein calorie malnutrition Protein-calorie malnutrition severity: severe Qualified Code(s): E43 - Unspecified severe protein-calorie malnutrition
[2024-01-26] MEDS: METOPROLOL TARTRATE 50 MG TAB PEG STA (16:17)
[2024-01-26] MEDS: ACETAMINOPHEN 1,000 MG/100 ML VIAL IV STA (17:19)
[2024-01-26] MEDS: ACETAMINOPHEN 1000 MG/100 ML IV IV ONE (17:19)
[2024-01-26] MEDS: SODIUM CHLORIDE 0.9% 1,000 ML IV SCH (17:23)
[2024-01-26] MEDS ORDERED: LEVALBUTEROL 1.25 MG/3 ML NEB NEB PRN (18:06)
[2024-01-26] MEDS ORDERED: ONDANSETRON INJ 2 MG/ML 2 ML VIAL IV PRN (18:06)
[2024-01-26] MEDS: SODIUM CHLORIDE 0.9% 500 ML IV SCH (18:33)
--- NOTE | 2024-01-26 18:54 | Communication Note ---
Date of Service: January 26, 2024 Called to the bedside by nursing for hypotension, reported multiple times <65 MAP. When I arrived patient was in trendelenburg MAP>65, but upon transitioning her to normal sitting position her BP decreased to 89/45 (MAP<65), repeated also <65. IV fluid bolus had been initiated but not completed yet, and midodrine was started after this episode. Patient with pulmonary vascular congestion on XR as well as congestion on auscultation at time of event, so further fluid supplementation was not initiated. Discussed case with dam attendant customer experience professional Dr. Anderson who recommended completion of fluid bolus before re-evaluation and potential admission to the ICU for vasopressor support. Discussed with who agrees to plan of care as described above. Patient does not complain of any changes or issues, but her ability to communicate her needs has seemed limited during my interactions with her.
[2024-01-26] MEDS ORDERED: ACETAMINOPHEN SUSP 325 MG/10.15 ML UDC PEG PRN (18:58)
[2024-01-26] MEDS: ALBUMIN 25% 25 GM/100 ML VIAL IV ONE ×2 (19:28→22:01)
[2024-01-26] MEDS: AMPICILLIN/SULBACTAM SOD 3,000 MG/100 ML BAG IV SCH (19:43)
[2024-01-26] MEDS: SODIUM CHLOR 7% 4 ML NEB NEB SCH (20:02)
[2024-01-26] MEDS: dexAMETHasone 4 MG in SYRINGE 0 ML IV ONE (20:17)
[2024-01-26 20:46] LABS: Base Excess VBG -0.8 mEq/L; HCO3 VBG 24 mmol/L; Oxygen Saturation VBG < 60.0 %; PCO2 VBG 41 mmHg (38-50); PO2 VBG 35 mmHg; pH VBG 7.38 (7.36-7.41)
[2024-01-26] MEDS: ALBUT/IPRATROP 3MG/0.5MG NEB 3 ML VIAL NEB STA (20:58)
[2024-01-26] MEDS ORDERED: METOPROLOL TARTRATE 50 MG TAB PEG SCH (21:00)
[2024-01-26] MEDS ORDERED: NON-FORMULARY MEDICATION (Nutritional Supplement-Fiber Liquid) feeding tube SCH (21:00)
[2024-01-26] MEDS: FUROSEMIDE INJ 20 MG/2 ML VIAL IV ONE (22:02)
[2024-01-26] MEDS: ACETAMINOPHEN 1,000 MG/100 ML VIAL IV PRN (22:11)
[2024-01-26 22:14] LABS: Appearance Urine Clear (Clear); Bilirubin Urine Negative (Negative); Blood Urine Negative (Negative); Color Urine Yellow; Glucose Urine UA Negative (Negative); Ketones Urine 1+ (Negative); Leukocyte Esterase Urine Negative (Negative); Nitrite Urine Negative (Negative); Protein Urine Negative (Negative); Specific Gravity Urine 1.021 (1.000-1.030); Urobilinogen Urine Negative (Negative)
[2024-01-26] MEDS: MAGNESIUM SULFATE / D5W 1 GM/100 ML BAG IV ONE (23:38)
--- NOTE | 2024-01-26 23:48 | Communication Note ---
Date of Service: January 26, 202401/25, 7:20 PM Patient with persistent hypotension and worsening hypoxemia as per RN. Patient without complaints. Lowest SBP of 70s. Low O2 sats of 88 on 8 L. Unable to administer midodrine tablet ordered by a.m. provider for hypotension due to unavailability of pediatric adaptor appropriate for patient's PEG tube inpatient as per RN. will be able to bring patient's pediatric adapter until tomorrow morning as per report. Pulmonary congestion on CXR imaging in a.m. AP Worsening hypoxemic respiratory failure Multifactorial : Pulmonary congestion, aspiration pneumonitis Hypotension Supplemental O2 PCU transfer Lasix albumin Hold patient's beta-ayde Rx 01/26 1:20 AM Midodrine administered after came to hospital to provide staff with PEG tube adaptor as per RN. 1:45 AM PEG tube balloon broke in the process of twisting off PEG tube adaptor as per RN. PEG tube currently out. AP Dislodged PEG tube GI consult in a.m.
[2024-01-27] MEDS: ALBUMIN 25% 12.5 GM/50 ML VIAL IV ONE (00:06)
[2024-01-27] MEDS: FUROSEMIDE INJ 20 MG/2 ML VIAL IV ONE (00:10)
[2024-01-27] MEDS: ALBUT/IPRATROP 3MG/0.5MG NEB 3 ML VIAL NEB SCH (00:18)
[2024-01-27] MEDS: APIXABAN 2.5 MG TAB PO SCH ×2 (00:46→01:34)
[2024-01-27] MEDS: MIDODRINE HCL 2.5 MG TAB PO STA ×2 (00:47→01:35)
[2024-01-27] MEDS: LEVOTHYROXINE SODIUM 100 MCG TABLET GT SCH (05:12)
[2024-01-27 07:04] LABS: Hematocrit (blood only) 31.1 % (37.0-47.0); Mean Corpuscular Hemoglobin 29.6 pg (25.0-34.0); Mean Corpuscular Hgb Conc 32.2 g/dL (32.0-36.0); Mean Platelet Volume 11.9 fL (9.4-12.4); Platelet Count 290 K/uL (130-400); RDW Coefficient of Variation 14.9 % (11.5-14.5); RDW Standard Deviation 49.9 fL (36.4-46.3); Red Blood Count 3.38 M/uL (4.20-5.40); White Blood Count 13.58 K/ul (4.8-10.8)
[2024-01-27 07:20] LABS: BUN Creatinine Ratio 30.4 (10-20); Calcium 8.3 mg/dl (8.6-10.3); Creatinine Clr Calc Pharmacy 68.2 ml/min; Est GFR (African American) 102.8 ml/min; Est GFR (Non-African American) 88.7 ml/min; Potassium 3.9 mmol/L (3.5-5.1)
[2024-01-27] MEDS ORDERED: TUBE FEEDING WATER FLUSH GT SCH (07:45)
[2024-01-27] MEDS ORDERED: FIBERSOURCE HN 1.2 CAL 1000 ML BAG GT SCH (07:45)
[2024-01-27] MEDS: MIDODRINE HCL 2.5 MG TAB PO SCH (08:29)
[2024-01-27] MEDS: D5W AND NSS 1,000 ML IV SCH (10:42)
--- NOTE | 2024-01-27 11:14 | Gastrointestinal Consultation ---
Date of Consultation January 27, 2024 Assessment & Plan (1) PEG tube malfunction: PEG tube malfunction The patient's PEG tube came out unfortunately the site has closed. she will have to undergo a repeat endoscopic placement of a PEG tube she had some elevation of her white cell count as well as some low-grade fever on top of that she also got Eliquis this morning you would have to wait about 48 hours before we can put in a new peg tube I spoke with her PCP who was going to hold the DOACs and placed on bridging heparin in the light of the fact that she has A-fib we will also monitor for any infection when stable probably within 1 to 2 days will plan a PEG tube placement patient can get nutrition via IV in the meantime Thank you for allowing us to take part in the care of your patient we will continue to follow her with you History of Present Illness Reason for Consultation: PEG tube replacement Requesting Physician: Hardy Concepcion Attending Physician: Alena Jara MD History of Present Illness An elderly female with multiple medical problems who was just recently discharged from the hospital with aspiration pneumonia she is being fed by means of a PEG tube as a history of tongue cancer and she cannot take anything by mouth unfortunately her PEG tube fell out the patient cannot speak and she communicates by means of writing on a pad. Her history is a little limited in light of that but currently she denies any abdominal symptoms per se Allergies Allergy/AdvReac Type Severity Reaction Status Date / Time Penicillins Allergy Mild Verified 09/21/21 13:54 Home Medications Medication Instructions Recorded Confirmed Type acetaminophen 160 mg/5 mL oral 640 mg feeding tube QID PRN Pain 09/21/21 01/26/24 History liquid (Children's Acetaminophen) nutritional supplement-fiber oral 2 ea feeding tube TID 09/21/21 01/26/24 History liquid levothyroxine 100 mcg tablet 100 mcg feeding tube DAILY 07/18/23 01/26/24 History apixaban 2.5 mg tablet (Eliquis) 2.5 mg feeding tube BID 01/16/24 01/26/24 History amoxicillin 500 mg-potassium 1 tab feeding tube TID 5 days #15 01/25/24 01/26/24 Rx clavulanate 125 mg tablet tabs metoprolol tartrate 50 mg tablet 50 mg feeding tube TID 30 days #90 01/25/24 01/26/24 Rx tabs Patient History Family History Mother Colon cancer Social History Smoking Status: Never smoker Hx Alcohol Use: No Hx Substance Use: No Preferred Language: Tajik Communication Ability: Effective Campaign Director Required: No Beliefs That Will Affect Care: None marital status: Current Living Situation: Spouse Other Information That Helps Us Care for You: No Feels Safe at Home: Yes Safety Concerns: Feels Safe At This Time Assistive Devices: Denture - Lower Review of Systems Review of Systems: Review of systems is limited in view of the fact that the patient cannot speak Physical Exam Constitutional: Elderly frail-appearing female Respiratory: Clear anteriorly Cardiovascular: S1 and S2 Gastrointestinal (Abdomen): The PEG site has closed and the scar where the PEG tube was can be seen abdomen is soft no tenderness or masses are appreciated Results & Data Vital Signs (Past 12 Hours) Vital Signs Temp Pulse Resp BP Pulse Ox Pulse Ox O2 Del Method 01/27/24 08:08 37.0 C 62 16 101/48 L 97 Nebulizer 01/27/24 07:12 61 18 90 Nasal Cannula 01/27/24 04:54 60 94/53 L 94 High Flow Nasal Cannula 01/27/24 04:31 95 High Flow Nasal Cannula 01/27/24 04:17 69 18 123/65 90 Room Air 01/27/24 03:22 91 01/27/24 02:16 66 22 124/66 94 High Flow Nasal Cannula 01/27/24 00:49 57 L 18 94/53 L 92 High Flow Nasal Cannula 01/27/24 00:05 54 L 18 94/51 L 93 High Flow Nasal Cannula 01/26/24 23:47 101/56 L 97 High Flow Nasal Cannula O2 Del Method O2 Flow Rate O2 Flow Rate 01/27/24 08:08 01/27/24 07:12 4 01/27/24 04:54 3 01/27/24 04:31 3 01/27/24 04:17 01/27/24 03:22 Nasal Cannula 6 01/27/24 02:16 5 01/27/24 00:49 7 01/27/24 00:05 7 01/26/24 23:47 8 PG Care Time/CCT Total # of Minutes Spent Total Time Spent with Patient: Total time spent is greater than 50% in coordination of care (as documented) at patient's floor/unit and/or counseling patient: Coding Level of Care Code 31373 IN/OBS CONSULT LVL 2,35M Diagnoses PEG tube malfunction K94.23
--- NOTE | 2024-01-27 11:38 | Hospitalist Progress Note ---
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 Just discharged on 01/25/2024 for aspiration pneumonia and easily fatigued and not ambulating well at home. Patient with physical deconditioning 2/2 recent pneumonia and hospitalization. Fall precautions PT/OT eval Patient and had declined rehab before discharge home with HH on 01/25/24 Counseled patient/ about need for rehab if needed at end of current stay (3) Aspiration pneumonia: Plan: Discharged 01/25/2024 for aspiration pneumonia, acute hypoxic respiratory failure, that required high flow oxygen, intermittent bipap. Initially treated with invanz and vancomycin then switched to Unasyn per pulm recommendations as well as treated with hypertonic saline and percussive vest therapy. 2 step completed prior to dc showing no oxygen at rest but 4L with activity and she was discharged on Augmentin In ER patient afebrile, P: 74, R: 18, BP 178/88, 98% on 4L via NC Respiratory biofire negative. No leukocytosis CXR: Cardiomegaly with mild pulmonary vascular congestion. Dense airspace consolidation in the right lower lung and a small right pleural effusion is similar to previous and typical for pneumonia. Continued follow-up to resolution is recommended. Dense right basilar consolidation, right pleural effusion and mild airspace consolidation in left lung base and trace pleural effusion noted on CT A/P Xopenex nebs prn Hypertonic saline nebs BID to assist in pulmonary toilet Wean oxygen as tolerated Continue Unasyn (4) Paroxysmal atrial fibrillation: Plan: Recent admission: carvedilol was discontinued and changed to metoprolol tartrate 50 mg TID Anticoagulated on Eliquis Had hypotension overnight. Metoprolol on hold BP improved Currently in sinus rhythm In view of dislodged PEG, Eliquis on hold for now until replaced. Hep gtt for now CT A/P today also noted possible filling defect in proximal right superficial femoral vein vs mixing artifact and RLE venous USS recommended. RLE DVT ordered (5) Tongue cancer: (6) S/P percutaneous endoscopic gastrostomy (PEG) tube placement: (7) Oropharyngeal dysphagia: (8) Protein calorie malnutrition: (9) H/O partial mastectomy: Plan: History of squamous cell carcinoma of tongue S/P radiation S/P PEG Tube History of left breast cancer Status post partial mastectomy NPO status at baseline Nutrition and meds via PEG tube However, PEG is dislodged Discussed with GI Dr Concepcion. He noted site is closed and since patient got eliquis overnight, will defer PEG replacement at this time. He will reassess tomorrow. Patient has leukocytosis, likely related to dexamethasone gotten yesterday + aspiration pneumonia. CT abd/P did not show any sign of intra abdominal infection Keep on IVF D5 saline for now If PEG is not replaced by tomorrow, change meds such as levothyroxine to IV (10) Hypothyroidism: Plan: On levothyroxine at home If PEG is not replaced by tomorrow, change meds such as levothyroxine to IV DVT Prophylaxis Hep gtt Admit med tele DNR/DNI I spent a total of 60 minutes coordinating, documenting and providing care for this patient excluding time spent in performance of separately billed services (11) Acute hypoxic respiratory failure: Admission and Anticipated Discharge Date Admission Date: January 26, 2024 Subjective Patient seen and examined Nonverbal. Communicates by writing out responses/questions on her whiteboard Reports cough Denied SOB, chest pain Denied fever, chills, nausea, vomiting, abd pain Denied dysuria, freq, urgency Patient's PEG fell out overnight Physical Exam Constitutional: + well hydrated; no acute distress Eyes: PERRL, conjunctivae normal, anicteric sclerae Respiratory: On nasal cannula, not in resp distress, diminished breath sounds lung bases bilaterally Cardiovascular: Rate/Rhythm: regular rate and regular rhythm Gastrointestinal (Abdomen): normal bowel sounds, soft, nontender, no hepatosplenomegaly PEG is dislodged. No tenderness or drainage noted Musculoskeletal: No pedal edema Neurologic: PERRL, EOMI Psychiatric: Awake and alert and cooperative Results & Data Results & Data Vital Signs (Past 12 Hours) Vital Signs Temp Pulse Resp BP Pulse Ox Pulse Ox O2 Del Method 01/27/24 11:36 81 18 143/69 H 94 Nasal Cannula 01/27/24 08:08 37.0 C 62 16 101/48 L 97 Nebulizer 01/27/24 07:12 61 18 90 Nasal Cannula 01/27/24 04:54 60 94/53 L 94 High Flow Nasal Cannula 01/27/24 04:31 95 High Flow Nasal Cannula 01/27/24 04:17 69 18 123/65 90 Room Air 01/27/24 03:22 91 01/27/24 02:16 66 22 124/66 94 High Flow Nasal Cannula 01/27/24 00:49 57 L 18 94/53 L 92 High Flow Nasal Cannula 01/27/24 00:05 54 L 18 94/51 L 93 High Flow Nasal Cannula 01/26/24 23:47 101/56 L 97 High Flow Nasal Cannula O2 Del Method O2 Flow Rate O2 Flow Rate 01/27/24 11:36 4 01/27/24 08:08 01/27/24 07:12 4 01/27/24 04:54 3 01/27/24 04:31 3 01/27/24 04:17 01/27/24 03:22 Nasal Cannula 6 01/27/24 02:16 5 01/27/24 00:49 7 01/27/24 00:05 7 01/26/24 23:47 8 Laboratory Results Abnormal lab results 01/26/24 01/26/24 01/26/24 Range/Units 13:40 14:19 22:00 WBC (4.8-10.8) K/ul RBC (4.20-5.40) M/uL Hgb (12.0-16.0) g/dl Hct (37.0-47.0) % RDW Std Deviation 50.7 H (36.4-46.3) fL RDW Coeff of Elliot 15.0 H (11.5-14.5) % Neut # (Auto) 9.97 H (1.40-6.50) K/uL Lymph # (Auto) 0.46 L (1.20-3.40) K/uL VBG pCO2 54 H (38-50) mmHg Creatinine (0.6-1.2) mg/dl BUN/Creatinine Ratio (10-20) Glucose (70-99(Fasting)) mg/dl Calcium (8.6-10.3) mg/dl B-Natriuretic Peptide (0-100) pg/ml Urine Ketones 1+ H (Negative) 01/27/24 Range/Units 05:55 WBC 13.58 H (4.8-10.8) K/ul RBC 3.38 L (4.20-5.40) M/uL Hgb 10.0 L (12.0-16.0) g/dl Hct 31.1 L (37.0-47.0) % RDW Std Deviation 49.9 H (36.4-46.3) fL RDW Coeff of Elliot 14.9 H (11.5-14.5) % Neut # (Auto) (1.40-6.50) K/uL Lymph # (Auto) (1.20-3.40) K/uL VBG pCO2 (38-50) mmHg Creatinine 0.56 L (0.6-1.2) mg/dl BUN/Creatinine Ratio 30.4 H (10-20) Glucose 110 H (70-99(Fasting)) mg/dl Calcium 8.3 L (8.6-10.3) mg/dl B-Natriuretic Peptide 847 H (0-100) pg/ml Urine Ketones (Negative) (8) Protein calorie malnutrition Protein-calorie malnutrition severity: severe Qualified Code(s): E43 - Unspecified severe protein-calorie malnutrition
--- NOTE | 2024-01-27 12:00 | CT Scan Report ---
CT SCAN OF THE ABDOMEN AND PELVIS WITH IV CONTRAST CLINICAL HISTORY: Sepsis. COMPARISON STUDY: Abdominal CT dated 07/18/2023. TECHNIQUE: Following the IV administration of 93 cc of Optiray 320, CT scan of the abdomen and pelvi s is performed from the lung bases to the proximal femora. Images are reviewed in the axial, sagittal , and coronal planes. IV contrast was administered without complication. A dose lowering technique wa s utilized adhering to the principles of ALARA. CT DOSE: 486.03 mGy.cm FINDINGS: Lung bases: The heart is enlarged and without pericardial effusion. A 2.8 cm pericardial cyst is seen on image #44. There is coronary artery atherosclerosis dense airspace consolidation is again at the right lung base with a loculated right pleural effusion. Moderate patchy airspace consolidation is se en in the left lower lobe. There is left basilar scarring/atelectasis and a trace a small hiatal eduardo ia is noted. Left pleural effusion Liver: The contrast-enhanced liver is enlarged, measuring 18.8 cm. Contour and attenuation are normal . There is no intrahepatic biliary ductal dilatation. The hepatic veins and portal veins are patent. Gallbladder: There are calcified gallstones with no CT evidence of acute cholecystitis. Spleen: Normal in size and attenuation. Pancreas: Unremarkable. Adrenal glands: Unremarkable. Kidneys: The contrast enhanced kidneys are normal in size and without hydronephrosis. There are numer ous bilateral nonobstructing renal calculi which measure up to 8 mm. No ureteral stone is seen. The k idneys enhance symmetrically. A retroaortic left renal vein is incidentally noted. Abdominal vasculature: The abdominal aorta is normal in course and caliber. There is an indeterminant apparent filling defect in the proximal right superficial femoral vein seen on axial image #375. Bowel: There is no bowel obstruction. Mild fecal retention is seen throughout the colon. The appendix is normal as imaged. Peritoneum: There is no intraperitoneal free air or abdominal ascites. Lymphadenopathy: None. Pelvic viscera: The bladder is distended. Intraluminal gas is nonspecific and may be related to instr umentation. The uterus and adnexa are normal as visualized. A pessary device is in place. Skeletal structures: The skeletal structures are osteopenic. Mild lumbosacral spondylosis is observed . No lytic or blastic lesions are seen. IMPRESSION: 1. No acute infectious or inflammatory findings are identified in the abdomen or pelvis. 2. There is an indeterminant apparent filling defect within the proximal right superficial femoral ve in. This may resent mixing artifact. A right lower extremity venous ultrasound is recommended to excl ude underlying deep venous thrombosis. 3. Dense right basilar consolidation is again noted with a multiloculated right pleural effusion. 4. There is mild airspace consolidation at the left lung base and trace left pleural effusion. 5. Cardiomegaly. 6. Bilateral nephrolithiasis. 7. Gas within the bladder lumen is nonspecific and may be related to instrumentation. Correlate with clinical findings and urinalysis. 8. Cholelithiasis. 9. Additional findings as above. ACT 112: Negative or not required by law. Electronically signed by: Howie Proctor M.D. 01/27/2024 11:58 AM
[2024-01-27] MEDS ORDERED: Heparin IV Adult Wt-Based Low-Dose *NO* INITIAL Bolus Protocol IV STA (13:30)
[2024-01-27 15:27] LABS: INR 1.3 (0.9-1.1); Partial Thromboplastin Time 28 Seconds (21-31); Prothrombin Time 13.4 Seconds (9.0-12.0)
[2024-01-27] MEDS: HEPARIN SODIUM/DEXTROSE 25,000 UNITS/500 ML BAG IV SCH (16:01)
--- NOTE | 2024-01-27 16:33 | Electrocardiogram Report ---
Test Reason : Blood Pressure : */* mmHG Vent. Rate : 70 BPM Atrial Rate : 70 BPM P-R Int : 254 ms QRS Dur : 90 ms QT Int : 444 ms P-R-T Axes : 50 -45 10 degrees QTcB Int : 479 ms Sinus rhythm with 1st degree A-V block with Premature supraventricular complexes Left anterior fascicular block Minimal voltage criteria for LVH, may be normal variant ( R in aVL ) Anterior infarct , age undetermined Abnormal ECG When compared with ECG of 17-Jan-2024 10:27, Sinus rhythm has replaced Atrial fibrillation Vent. rate has decreased by 46 bpm Incomplete right bundle branch block is no longer Present Nonspecific T wave abnormality no longer evident in Lateral leads Confirmed by Brandie Camacho ([id number]) on 01/27/2024 4:33:27 PM Referred By: REFERRED SELF Confirmed By: Brandie Camacho
[2024-01-27 23:32] LABS: ANTI-Xa, UFH(UnfractionatedHep 0.69 IU/ml (0.3-0.7)
--- NOTE | 2024-01-27 23:58 | Ultrasound Report ---
ULTRASOUND RIGHT LOWER EXTREMITY VENOUS CLINICAL HISTORY: Abnormal CT scan. Possible DVT.. COMPARISON STUDY: Pelvic CT dated 01/27/2024. TECHNIQUE: Real-time, grayscale, and color Doppler sonography of the deep veins of the right lower ex tremity was performed from the inguinal crease to the calf. Compression and augmentation were utilize d. FINDINGS: There is nonocclusive deep venous thrombosis seen in the right superficial femoral vein. Th e common femoral, superficial femoral, and popliteal veins are otherwise patent and normally compress ible. The greater saphenous vein and the profunda femoris vein at the junction with the common femora l vein are clear. The visualized calf veins are patent. IMPRESSION: 1. Ultrasound confirms nonocclusive deep venous thrombosis within the proximal right superficial femo ral vein. 2. The remaining deep veins of the right lower extremity are patent and normally compressible. ACT 112: Negative or not required by law. Electronically signed by: Howie Proctor M.D. 01/27/2024 11:56 PM
[2024-01-28 07:28] LABS: Hematocrit (blood only) 34.6 % (37.0-47.0); Mean Corpuscular Hemoglobin 29.6 pg (25.0-34.0); Mean Corpuscular Hgb Conc 31.8 g/dL (32.0-36.0); Mean Corpuscular Volume 93.3 fL (80.0-100.0); Mean Platelet Volume 11.3 fL (9.4-12.4); Platelet Count 281 K/uL (130-400); RDW Coefficient of Variation 15.1 % (11.5-14.5); RDW Standard Deviation 50.8 fL (36.4-46.3); Red Blood Count 3.71 M/uL (4.20-5.40); White Blood Count 8.16 K/ul (4.8-10.8)
[2024-01-28 07:53] LABS: Calcium 8.4 mg/dl (8.6-10.3); Creatinine Clr Calc Pharmacy 86.3 ml/min; Est GFR (African American) 111.3 ml/min; Potassium 3.3 mmol/L (3.5-5.1)
[2024-01-28 07:58] LABS: ANTI-Xa, UFH(UnfractionatedHep 0.47 IU/ml (0.3-0.7)
--- NOTE | 2024-01-28 08:02 | Pulmonology Progress Note ---
Date of Service January 28, 2024 Assessment & Plan Plan CT chest 01/16/2024 personally reviewed: Bilateral apical pleural scarring Dense consolidative process appreciated in the right middle lobe as well as the right lower lobe Right hilar and subcarinal lymphadenopathy -- Acute hypoxic respiratory failure Secondary to multilobar pneumonia Respiratory BioFire negative for everything on 01/26/2024 Procalcitonin 0.36 -- Right-sided pleural effusion Likely parapneumonic on top of HFpEF BNP 847 Plan: Please note the above document was generated using voice recognition software. It may contain grammatical, syntax or spelling errors.Any formal questions or concerns about the content, text or information contained within the body of this dictation should be directly addressed to the provider for clarification. Admission and Anticipated Discharge Date Admission Date: January 26, 2024 Subjective 78-year-old female who was initially seen by Dr. Anderson on 01/16/2024 Pulmonary consulted for hypoxic respiratory failure At the time of examination Review of Systems 2 Review of Systems: All systems reviewed & are unremarkable except as noted in Subjective Physical Exam 2 Physical Exam: Constitutional: No acute distress HEENT: EOMI, PERRLA Respiratory system: Good air entry bilaterally, [] wheeze, [] rhonchi, [] crackles CVS: S1-S2 positive, no murmurs or gallops Abdomen: Soft, nontender, nondistended, positive bowel sounds x4 Extremities: +2 pulses bilaterally radialis/ dorsalis pedis, no cyanosis, no edema Neuro: Awake alert oriented x3 Psych: Normal mood and affect G/U: Skin: no rashes, warm and dry Lymphatic: no cervical or axillary lymphadenopathy Results & Data Results & Data Vital Signs (Past 12 Hours) Vital Signs Temp Pulse Pulse Resp BP Pulse Ox O2 Del Method 01/28/24 07:44 36.7 C 80 20 149/69 H 89 L Nebulizer 01/28/24 07:11 83 18 86 L Nasal Cannula 01/28/24 04:17 36.7 C 86 16 135/64 90 Nasal Cannula 01/28/24 01:39 68 18 96 Nasal Cannula 01/27/24 23:45 75 01/27/24 23:42 36.3 C L 65 16 134/73 97 Nasal Cannula 01/27/24 22:45 81 14 139/75 96 Nasal Cannula 01/27/24 21:41 Nasal Cannula 01/27/24 20:19 78 18 96 Nasal Cannula 01/27/24 19:59 37.0 C 68 17 124/67 95 Nasal Cannula O2 Flow Rate 01/28/24 07:44 01/28/24 07:11 4 01/28/24 04:17 4 01/28/24 01:39 4 01/27/24 23:45 01/27/24 23:42 4 01/27/24 22:45 4 01/27/24 21:41 4 01/27/24 20:19 3 01/27/24 19:59 3 Laboratory Results 01/28/24 07:00 01/28/24 07:00 PG Care Time/CCT Total # of Minutes Spent Total Time Spent with Patient: Total time spent is greater than 50% in coordination of care (as documented) at patient's floor/unit and/or counseling patient: Coding Level of Care Code 29029 SUB INP/OBS CARE 3/50MIN
[2024-01-28 08:13] LABS: Magnesium 2.3 mg/dl (1.7-2.4); Phosphorus 1.3 mg/dl (2.5-4.9)
[2024-01-28] MEDS ORDERED: POTASSIUM PHOS 3 MMOL/1 ML INFUSION IV STA (08:20)
[2024-01-28] MEDS: Heparin IV Adult Wt-Based Standard *NO* INITIAL Bolus Protocol IV STA (08:55)
[2024-01-28] MEDS: HEPARIN SODIUM/DEXTROSE 25,000 UNITS/500 ML BAG IV SCH (09:14)
[2024-01-28] MEDS: POTASSIUM PHOSPHATE 30 MMOL in SODIUM CHLORIDE 0.9% 500 ML IV ONE (09:14)
[2024-01-28] MEDS ORDERED: Nursing to Pharmacy Communication SCH (09:45)
--- NOTE | 2024-01-28 10:46 | Pulmonary Consultation ---
Date of Consultation January 28, 2024 Assessment & Plan (1) Pleural effusion: (2) Aspiration pneumonia: (3) Paroxysmal atrial fibrillation: (4) Acute hypoxic respiratory failure: Plan CT chest 01/16/2024 personally reviewed: Bilateral apical pleural scarring Dense consolidative process appreciated in the right middle lobe as well as the right lower lobe Right hilar and subcarinal lymphadenopathy 2D echo 07/24/2023: EF 60-65%, moderate concentric LVH, grade 2 diastolic dysfunction, mild TR -- Acute hypoxic respiratory failure Secondary to multilobar pneumonia with new onset right-sided pleural effusion Respiratory BioFire negative for everything on 01/26/2024 Procalcitonin 0.36 -- Right-sided pleural effusion Likely parapneumonic on top of HFpEF BNP 847 -- DNR/DNI Plan: I do think patient is going to benefit from thoracentesis Continue to hold Eliquis, I discussed the case with IR. They will plan to do thoracentesis tentatively tomorrow or Sunday. In the interim would recommend to continue with diuresis as tolerated Patient will benefit from CoughAssist Case was discussed with RN and primary team Please note the above document was generated using voice recognition software. It may contain grammatical, syntax or spelling errors.Any formal questions or concerns about the content, text or information contained within the body of this dictation should be directly addressed to the provider for clarification. History of Present Illness Attending Physician: Alena Jara MD History of Present Illness 78-year-old female presented to the hospital shortness of breath Past medical history: Left-sided breast cancer s/p partial mastectomy 2004, squamous cell carcinoma noma of the tongue s/p radiation and PEG tube, hypothyroidism, A-fib Pulmonary consulted for hypoxic respiratory failure At the time of examination patient was resting comfortably. She her respiratory was in the high teens to low 20s Saturation was 91-92% on 5 L nasal cannula. She does complain of cough and is bringing up phlegm, green in color Denies chest pain, wheezing No dysuria or diarrhea No unusual headache or blurry vision Has been febrile when she came to the ER Allergies Allergy/AdvReac Type Severity Reaction Status Date / Time Penicillins Allergy Mild Verified 09/21/21 13:54 Home Medications Medication Instructions Recorded Confirmed Type acetaminophen 160 mg/5 mL oral 640 mg feeding tube QID PRN Pain 09/21/21 01/26/24 History liquid (Children's Acetaminophen) nutritional supplement-fiber oral 2 ea feeding tube TID 09/21/21 01/26/24 History liquid levothyroxine 100 mcg tablet 100 mcg feeding tube DAILY 07/18/23 01/26/24 History apixaban 2.5 mg tablet (Eliquis) 2.5 mg feeding tube BID 01/16/24 01/26/24 History amoxicillin 500 mg-potassium 1 tab feeding tube TID 5 days #15 01/25/24 01/26/24 Rx clavulanate 125 mg tablet tabs metoprolol tartrate 50 mg tablet 50 mg feeding tube TID 30 days #90 01/25/24 01/26/24 Rx tabs Patient History Family History Mother Colon cancer Social History Smoking Status: Never smoker Hx Alcohol Use: No Hx Substance Use: No Preferred Language: Estonian Communication Ability: Effective Patient Care Provider Required: No Beliefs That Will Affect Care: None marital status: Current Living Situation: Spouse Other Information That Helps Us Care for You: No Feels Safe at Home: Yes Safety Concerns: Feels Safe At This Time Assistive Devices: Denture - Lower Review of Systems 2 Review of Systems: All systems reviewed & are unremarkable except as noted in HPI & below Physical Exam 2 Physical Exam: Constitutional: No acute distress HEENT: EOMI, PERRLA Respiratory system: Decreased air entry bilaterally, more decreased on the right side, no wheeze, no rhonchi, positive crackles bilaterally CVS: S1-S2 positive, no murmurs or gallops Abdomen: Soft, nontender, nondistended, positive bowel sounds x4 Extremities: +2 pulses bilaterally radialis/ dorsalis pedis, no cyanosis, no edema Neuro: Awake alert oriented x3 Psych: Normal mood and affect G/U: Positive [place] Musculoskeletal: Thoracic kyphosis Skin: no rashes, warm and dry Lymphatic: no cervical or axillary lymphadenopathy Results & Data Results & Data Vital Signs (Past 12 Hours) Vital Signs Temp Pulse Pulse Resp BP Pulse Ox O2 Del Method 01/28/24 08:00 Nasal Cannula 01/28/24 07:44 36.7 C 80 20 149/69 H 89 L Nebulizer 01/28/24 07:11 83 18 86 L Nasal Cannula 01/28/24 04:17 36.7 C 86 16 135/64 90 Nasal Cannula 01/28/24 01:39 68 18 96 Nasal Cannula 01/27/24 23:45 75 01/27/24 23:42 36.3 C L 65 16 134/73 97 Nasal Cannula 01/27/24 22:45 81 14 139/75 96 Nasal Cannula O2 Flow Rate 01/28/24 08:00 5 01/28/24 07:44 01/28/24 07:11 4 01/28/24 04:17 4 01/28/24 01:39 4 01/27/24 23:45 01/27/24 23:42 4 01/27/24 22:45 4 Laboratory Results 01/28/24 07:00 01/28/24 07:00 PG Care Time/CCT Total # of Minutes Spent Total Time Spent with Patient: Total time spent is greater than 50% in coordination of care (as documented) at patient's floor/unit and/or counseling patient: Coding Level of Care Code 26933 INT INP/OBS CARE 3/75MIN Diagnoses Pleural effusion J90 Aspiration pneumonia J69.0 Paroxysmal atrial fibrillation I48.0 Acute hypoxic respiratory failure J96.01
--- NOTE | 2024-01-28 10:58 | Gastroenterology Progress Note ---
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 Attempted to replace at bedside, unfortunately site has closed. Given her complex past medical history, O2 saturation, oxygen requirement, recommend IR placement of PEG. Recall GI as needed. I spent a total of 45 minutes on the date of service in review of patient's record, and previously obtained information in person and appropriate medical visit, discussion and education of plan, with patient and/or caregiver, placing orders for tests/referral/procedures as medically necessary and documentation of pertinent clinical information in patient's medical records for their visit today. Admission and Anticipated Discharge Date Admission Date: January 26, 2024 Supervising Physician Co-Signing Physician Notes I examined the patient and reviewed patient's chart , laboratory data and imaging studies. I agree with with assessment and plan of care as suggested by advanced practice provider. Subjective GI attempted to replace PEG at bedside. Unsuccessful, site closed. Review of Systems Review of Systems: All other findings negative except as noted in HPI. Physical Exam Constitutional: WD/WN, vitals as above Respiratory: normal respiratory effort, lungs clear to auscultation Cardiovascular: Rate/Rhythm: regular rate and regular rhythm Gastrointestinal (Abdomen): normal bowel sounds, soft, nontender, no hepatosplenomegaly PEG site closed. Small amount of discharge at site. Cleaned. Attempted to replace PEG, tract closed. Unable to pass/advance savory wire to attempt to dilate the cutaneous opening. Skin: no rashes, warm and dry Results & Data Results & Data Vital Signs (Past 12 Hours) Vital Signs Temp Pulse Pulse Resp BP Pulse Ox O2 Del Method 01/28/24 08:00 Nasal Cannula 01/28/24 07:44 36.7 C 80 20 149/69 H 89 L Nebulizer 01/28/24 07:11 83 18 86 L Nasal Cannula 01/28/24 04:17 36.7 C 86 16 135/64 90 Nasal Cannula 01/28/24 01:39 68 18 96 Nasal Cannula 01/27/24 23:45 75 01/27/24 23:42 36.3 C L 65 16 134/73 97 Nasal Cannula O2 Flow Rate 01/28/24 08:00 5 01/28/24 07:44 01/28/24 07:11 4 01/28/24 04:17 4 01/28/24 01:39 4 01/27/24 23:45 01/27/24 23:42 4 Laboratory Results 01/28/24 01/27/24 01/27/24 Range/Units 07:00 22:36 14:41 WBC 8.16 (4.8-10.8) K/ul RBC 3.71 L (4.20-5.40) M/uL Hgb 11.0 L (12.0-16.0) g/dl Hct 34.6 L (37.0-47.0) % MCV 93.3 (80.0-100.0) fL MCH 29.6 (25.0-34.0) pg MCHC 31.8 L (32.0-36.0) g/dL RDW Std Deviation 50.8 H (36.4-46.3) fL RDW Coeff of Elliot 15.1 H (11.5-14.5) % Plt Count 281 (130-400) K/uL MPV 11.3 (9.4-12.4) fL PT 13.4 H (9.0-12.0) Seconds INR 1.3 H (0.9-1.1) APTT 28 (21-31) Seconds PTT Ratio 1.0 Heparin Anti-Xa, Unfract 0.47 0.69 (0.3-0.7) IU/ml Sodium 143 (136-145) mmol/L Potassium 3.3 L (3.5-5.1) mmol/L Chloride 108 H (98-107) mmol/L Carbon Dioxide 27 (21-32) mmol/L Anion Gap 8 (3-11) BUN 11 (6-23) mg/dl Creatinine 0.44 L (0.6-1.2) mg/dl Est Cr Clr Drug Dosing 86.3 ml/min Est GFR ( Amer) 111.3 ml/min Est GFR (Non-Af Amer) 96.0 ml/min BUN/Creatinine Ratio 25.0 H (10-20) Glucose 108 H (70-99(Fasting)) mg/dl Calcium 8.4 L (8.6-10.3) mg/dl Phosphorus 1.3 L* (2.5-4.9) mg/dl Magnesium 2.3 (1.7-2.4) mg/dl PG Care Time/CCT Total # of Minutes Spent Total Time Spent with Patient: Total time spent is greater than 50% in coordination of care (as documented) at patient's floor/unit and/or counseling patient: Coding Level of Care Code 05183 SUB INP/OBS CARE 2/35MIN Diagnoses PEG tube malfunction K94.23
[2024-01-28] MEDS: METOPROLOL TARTRATE 1 MG/ML VIAL IV SCH ×2 (11:21→15:21)
[2024-01-28] MEDS: FUROSEMIDE INJ 20 MG/2 ML VIAL IV ONE ×2 (11:27→15:36)
--- NOTE | 2024-01-28 14:48 | Cardiology Progress Note ---
Date of Service January 28, 2024 Assessment & Plan (1) Paroxysmal atrial fibrillation: (2) Aspiration pneumonia: (3) Pleural effusion: (4) PEG tube malfunction: Plan Patient with recurrent Afib RVR this morning in setting of hypokalemia and inability to have metoprolol tartrate over the last few days due to PEG tube malfunction/removal. Potassium currently infusing IV. IV lopressor 5 mg initiated. Increase dose to every q3 hours. Continue IV heparin for stroke prophylaxis. Also now has right LE DVT. She has been on Eliquis 2.5 mg BID via PEG tube as well. Transitioned to IV heparin when PEG tube removed. Based on age, renal function, she would technically be candidate for 5 mg BID. Ongoing right pleural effusion - Pulm consulted and considering thoracentesis. Continue IV furosemide 20 mg daily to maintain volume status Monitor I+O's There is discussion about patient being transferred to another facility for PEG tube replacement. Will follow Case discussed with Dr. Solomon Crews spent a total of 35 minutes on the date of service in preparation, delivery, and documentation of the care provided to this patient, excluding any time spent in the performance of separately billed services. Allyson Kim PA-C Department of Cardiology, [facility] This chart was completed in part utilizing Speech Voice Recognition Software. Grammatical errors, random word insertions, pronoun errors, and incomplete sentences are an occasional consequence of this system due to software limitations, ambient noise, and hardware issues. Any formal questions or concerns about the content, text, or information contained within the body of this dictation should be directly addressed to the provider for clarification. Admission and Anticipated Discharge Date Admission Date: January 26, 2024 Supervising Physician Co-Signing Physician Notes Patient was seen and personally examined. Chart medications telemetry reviewed. Case and care outlined as above by advanced provider with management personally discussed and endorsed Complex 78-year-old with paroxysmal atrial fibrillation lapsing into atrial fibrillation after interruption in usual meds due to loss of PEG tube Plan as outlined above increase IV metoprolol to 5 mg IV every 3 hours. May be increased to 7 and half milligrams every 3 hours if heart rate not controlled. Blood pressure will allow at this time Supplement potassium as already ordered Subjective Was requested by [facility] hospitalist team to re-evaluate today. Initial consult placed on 01/18/24. Hospitalized for pneumonia, CHF, and afib RVR. She had converted to NSR with metoprolol tartrate and short acting Cardizem via PEG tube earlier this admission. She had been on Eliquis 2.5 mg BID. Unfortunately her PEG tube came out during admission, and has not been able to be replaced at this time. Per nursing, she has had no metoprolol in several days without PEG tube. Unable to take oral meds. This morning, she reverted back into Afib RVR around 10:30 AM. HR variable ranging 120-160's. Potassium was low and has been supplemented. Also found to have right LE DVT. Had been on Eliquis and now IV heparin. Pulm consulted and evaluated for pneumonia and possible At time of evaluation, patient resting in bed comfortably. at bedside. They were told she may need transferred to [place] due to PEG tube replacement. Awaiting GI/surgical eval. She is able to answer yes/no questions. She denies chest pain. Admits to SOB and palpitations. No dizziness Review of Systems Review of Systems: Other Full review of systems is difficult to obtain given history of oral/tongue cancer. She answers yes/no questions appropriately Physical Exam Constitutional: + ill appearing and + cachectic Respiratory: no labored breathing Auscultation: + diminished lung sounds an d + rales Cardiovascular: Rate/Rhythm: + tachycardic and + irregularly irregular Heart Sounds: normal S1 and normal S2; no murmur Vessels: no JVD Extremities: no edema Gastrointestinal (Abdomen): normal bowel sounds, soft, nontender, no hepatosplenomegaly Results & Data Vital Signs (Past 12 Hours) Vital Signs Temp Pulse Pulse Resp BP BP Pulse Ox 01/28/24 13:00 127 H 01/28/24 12:40 127 H 01/28/24 11:52 36.6 C 138 H 18 139/88 98 01/28/24 11:21 136 H 139/88 01/28/24 08:00 01/28/24 07:44 36.7 C 80 20 149/69 H 89 L 01/28/24 07:11 83 18 86 L 01/28/24 04:17 36.7 C 86 16 135/64 90 O2 Del Method O2 Flow Rate 01/28/24 13:00 01/28/24 12:40 01/28/24 11:52 Nasal Cannula 5 01/28/24 11:21 01/28/24 08:00 Nasal Cannula 5 01/28/24 07:44 Nebulizer 01/28/24 07:11 Nasal Cannula 4 01/28/24 04:17 Nasal Cannula 4 Laboratory Results Coagulation 01/27/24 Range/Units 14:41 PT 13.4 H (9.0-12.0) Seconds APTT 28 (21-31) Seconds CBC 01/28/24 Range/Units 07:00 WBC 8.16 (4.8-10.8) K/ul RBC 3.71 L (4.20-5.40) M/uL Hgb 11.0 L (12.0-16.0) g/dl Hct 34.6 L (37.0-47.0) % Plt Count 281 (130-400) K/uL Comprehensive Metabolic Panel 01/28/24 Range/Units 07:00 Sodium 143 (136-145) mmol/L Potassium 3.3 L (3.5-5.1) mmol/L Chloride 108 H (98-107) mmol/L Carbon Dioxide 27 (21-32) mmol/L BUN 11 (6-23) mg/dl Creatinine 0.44 L (0.6-1.2) mg/dl Glucose 108 H (70-99(Fasting)) mg/dl Calcium 8.4 L (8.6-10.3) mg/dl Intake and Output 01/28/24 01/28/24 01/28/24 06:59 14:59 22:59 Intake Total 786.45 / 1499.45 554.583 / 554.583 Balance 786.45 / 1198.45 554.583 / 554.583 Intake: IV 786.45 / 1499.45 554.583 / 554.583 Ampicillin/Sulbactam Sod 3,000 100 / 400 200 / 200 mg In 100 ml @ 200 mls/hr IV Q6H [facility] Rx#:[id number] D5w and Nss 1,000 ml @ 60 mls/ 587 / 1000 256 / 256 hr IV .[id number] [facility] Rx#:[id number] Heparin Sodium/Dextrose 25,000 99.45 / 99.45 98.583 / 98.583 units In 500 ml @ 650 UNITS/HR 13 mls/hr IV .Q24H [facility] Rx#: [id number] Other: Other Intake Source NPO # Unmeasured Voids 1 1 Weight 52.7 kg 52.7 kg Patient Weight 01/29/24 06:59 Weight 52.7 kg Diagnostic Findings EKG from today ordered/pending Telemetry reviewed: Converted from NSR to atrial fibrillation RVR at 10:24 AM this morning. HR variable ranging 120-160's. Venous duplex report reviewed from yesterday 01/26: IMPRESSION: 1. Ultrasound confirms nonocclusive deep venous thrombosis within the proximal right superficial femoral vein. 2. The remaining deep veins of the right lower extremity are patent and normally compressible. Chest xray report reviewed dated Jan 26, 2024: IMPRESSION: 1. Cardiomegaly with mild pulmonary vascular congestion. 2. Dense airspace consolidation in the right lower lung and a small right pleural effusion is similar to previous and typical for pneumonia. Continued follow-up to resolution is recommended. Medications Administered Current Inpatient Medications Albuterol (Albut/Ipratrop 3mg/0.5mg Neb 3 Ml Vial) 3 ml NEB BIDR [facility]; Protocol Stop: 02/27/24 18:59 Apixaban (Apixaban 2.5 Mg Tab) 2.5 mg PO BID [facility] Stop: 02/26/24 01:24 Last Admin: 01/27/24 08:30 Dose: Not Given Furosemide (Furosemide Inj 20 Mg/2 Ml Vial) 20 mg IV ONE ONE Stop: 01/28/24 15:31 Ampicillin Sodium/Sulbactam Sodium (Unasyn) 3,000 mg in 100 mls @ 200 mls/hr IV Q6H [facility] Stop: 02/02/24 17:59 Last Infusion: 01/28/24 13:55 Dose: Infused Acetaminophen (Ofirmev) 1,000 mg in 100 mls @ 400 mls/hr IV Q8H PRN PRN Reason: Pain or Fever Stop: 01/29/24 18:57 Last Infusion: 01/26/24 22:51 Dose: Infused Dextrose/Sodium Chloride (D5w And Nss) 1,000 mls @ 60 mls/hr IV .[id number] [facility] Stop: 02/26/24 10:29 Last Infusion: 01/28/24 11:11 Dose: 0 mls/hr Heparin Sodium/Dextrose (Heparin Sodium/Dextrose) 25,000 units in 500 mls @ 13 mls/hr IV .Q24H [facility]; Protocol Stop: 02/27/24 08:29 Last Admin: 01/28/24 09:14 Dose: 650 units/hr, 13 mls/hr Levalbuterol HCl (Levalbuterol 1.25 Mg/3 Ml Neb) 1.25 mg NEB Q6H PRN PRN Reason: Shortness Of Breath Or Wheezing Stop: 02/25/24 18:05 Levothyroxine Sodium (Levothyroxine Sodium 100 Mcg Tablet) 100 mcg GT DAILYBB [facility] Stop: 02/26/24 06:29 Last Admin: 01/28/24 06:55 Dose: Not Given Metoprolol Tartrate (Metoprolol Tartrate 50 Mg Tab) 50 mg PEG TID [facility] Stop: 02/25/24 20:59 Metoprolol Tartrate (Metoprolol Tartrate 1 Mg/Ml Vial) 5 mg IV Q3H [facility] Stop: 02/27/24 14:59 Midodrine (Midodrine Hcl 2.5 Mg Tab) 5 mg PO TID@0800,1200,1700 [facility] Stop: 02/26/24 07:59 Last Admin: 01/27/24 12:22 Dose: Not Given Ondansetron HCl (Ondansetron Inj 2 Mg/Ml 2 Ml Vial) 4 mg IV Q6H PRN PRN Reason: Nausea Stop: 02/25/24 18:05 Sodium Chloride (Sodium Chlor 7% 4 Ml Neb) 4 ml NEB BIDR [facility] Stop: 02/25/24 18:59 Last Admin: 01/28/24 07:11 Dose: 4 ml
--- NOTE | 2024-01-28 15:49 | Hospitalist Progress Note ---
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 Just discharged on 01/25/2024 for aspiration pneumonia and easily fatigued and not ambulating well at home. Patient with physical deconditioning 2/2 recent pneumonia and hospitalization. Fall precautions PT/OT eval Patient and had declined rehab before discharge home with on 01/25/24 (3) Acute hypoxic respiratory failure: (4) Pleural effusion: (5) Aspiration pneumonia: Plan: Discharged 01/25/2024 for aspiration pneumonia, acute hypoxic respiratory failure, that required high flow oxygen, intermittent bipap. Initially treated with invanz and vancomycin then switched to Unasyn per pulm recommendations as well as treated with hypertonic saline and percussive vest therapy. 2 step completed prior to dc showing no oxygen at rest but 4L with activity and she was discharged on Augmentin In ER patient afebrile, P: 74, R: 18, BP 178/88, 98% on 4L via NC Respiratory biofire negative. No leukocytosis CXR: Cardiomegaly with mild pulmonary vascular congestion. Dense airspace consolidation in the right lower lung and a small right pleural effusion is similar to previous and typical for pneumonia. Continued follow-up to resolution is recommended. Dense right basilar consolidation, right pleural effusion and mild airspace consolidation in left lung base and trace pleural effusion noted on CT A/P Continue Unasyn Discussed with [employer] Production Technician today. Plan for possible thoracentesis tomorrow since patient got Eliquis on 01/27/24 at 1:34AM Will give diuretic after electrolyte repletion Continue oxygen supplementation and wean as tolerated (6) Right leg DVT: Plan: CT A/P today also noted possible filling defect in proximal right superficial femoral vein vs mixing artifact and RLE venous USS recommended. RLE DVT showed Right superficial femoral DVT Hep gtt initially ordered for Anticoagulation for AFib since eliquis was on hold changed to VTE dose protocol (7) Paroxysmal atrial fibrillation: Plan: Recent admission: carvedilol was discontinued and changed to metoprolol tartrate 50 mg TID Anticoagulated on Eliquis Was in sinus rhythm but went into AFib w/RVR this afternoon IV metoprolol 5mg ordered q6h Currently on hep gtt since no GI access yet Cardiology consulted. Cards increased metoprolol to q3H Replete hypokalemia and hypophosphatemia (8) Tongue cancer: (9) S/P percutaneous endoscopic gastrostomy (PEG) tube placement: (10) Oropharyngeal dysphagia: (11) Protein calorie malnutrition: (12) H/O partial mastectomy: Plan: History of squamous cell carcinoma of tongue S/P radiation S/P PEG Tube History of left breast cancer Status post partial mastectomy NPO status at baseline Nutrition and meds via PEG tube However, PEG is dislodged on night of admission of 01/26/24 On 01/27/24, GI Dr Concepcion evaluated and noted site is closed CT abd/P did not show any sign of intra abdominal infection GI reevaluated today and noted they cannot replace PEG that it needs IR to replace. Transfer recommended for IR PEG placement I called transfer center and patient was accepted to [facility] for IR PEG placement and continued mananagement of all medical problems (13) Hypothyroidism: Plan: On levothyroxine at home Can change levothyroxine to IV in the interim DNR/DNI I spent a total of 65 minutes coordinating, documenting and providing care for this patient excluding time spent in performance of separately billed services Admission and Anticipated Discharge Date Admission Date: January 26, 2024 Subjective Patient seen and examined Nonverbal/difficult to understand. Communicates by writing out responses/questions on her whiteboard Reports cough, SOB with exertion Denied any chest pain Denied any other complaints Physical Exam Constitutional: + well hydrated; no acute distress Eyes: PERRL, conjunctivae normal, anicteric sclerae ENMT: On nasal cannula, not in resp distress, diminished breath sounds lung bases bilaterally Cardiovascular: Rate/Rhythm: + tachycardic and + irregularly irregular Gastrointestinal (Abdomen): normal bowel sounds, soft, nontender, no hepatosplenomegaly Musculoskeletal: No pedal edema Neurologic: PERRL EOMI Alert and oriented Moves all extremities Results & Data Results & Data Vital Signs (Past 12 Hours) Vital Signs Temp Pulse Pulse Resp BP BP Pulse Ox 01/28/24 15:21 126 H 125/82 01/28/24 13:00 127 H 01/28/24 12:40 127 H 01/28/24 11:52 36.6 C 138 H 18 139/88 98 01/28/24 11:21 136 H 139/88 01/28/24 08:00 01/28/24 07:44 36.7 C 80 20 149/69 H 89 L 01/28/24 07:11 83 18 86 L 01/28/24 04:17 36.7 C 86 16 135/64 90 O2 Del Method O2 Flow Rate 01/28/24 15:21 01/28/24 13:00 01/28/24 12:40 01/28/24 11:52 Nasal Cannula 5 01/28/24 11:21 01/28/24 08:00 Nasal Cannula 5 01/28/24 07:44 Nebulizer 01/28/24 07:11 Nasal Cannula 4 01/28/24 04:17 Nasal Cannula 4 Laboratory Results Abnormal lab results 01/28/24 Range/Units 07:00 RBC 3.71 L (4.20-5.40) M/uL Hgb 11.0 L (12.0-16.0) g/dl Hct 34.6 L (37.0-47.0) % MCHC 31.8 L (32.0-36.0) g/dL RDW Std Deviation 50.8 H (36.4-46.3) fL RDW Coeff of Elliot 15.1 H (11.5-14.5) % Potassium 3.3 L (3.5-5.1) mmol/L Chloride 108 H (98-107) mmol/L Creatinine 0.44 L (0.6-1.2) mg/dl BUN/Creatinine Ratio 25.0 H (10-20) Glucose 108 H (70-99(Fasting)) mg/dl Calcium 8.4 L (8.6-10.3) mg/dl Phosphorus 1.3 L* (2.5-4.9) mg/dl (11) Protein calorie malnutrition Protein-calorie malnutrition severity: severe Qualified Code(s): E43 - Unspecified severe protein-calorie malnutrition
--- NOTE | 2024-01-28 16:56 | Electrocardiogram Report ---
Test Reason : Blood Pressure : */* mmHG Vent. Rate : 127 BPM Atrial Rate : 74 BPM P-R Int : * ms QRS Dur : 90 ms QT Int : 340 ms P-R-T Axes : * -50 10 degrees QTcB Int : 494 ms Atrial fibrillation with rapid ventricular response Left anterior fascicular block Minimal voltage criteria for LVH, may be normal variant Nonspecific ST abnormality Left anterior fascicular block Abnormal ECG When compared with ECG of 26-Jan-2024 12:26, Atrial fibrillation has replaced Sinus rhythm Vent. rate has increased by [address] now depressed in Anterior leads Confirmed by Topher Leblanc ([id number]) on 01/28/2024 4:56:09 PM Referred By: REFERRED SELF Confirmed By: Topher Leblanc
[2024-01-28] MEDS: ALBUT/IPRATROP 3MG/0.5MG NEB 3 ML VIAL NEB SCH (19:42)
[2024-01-29] MEDS ORDERED: POTASSIUM CHLORIDE / WTR 10 MEQ/100 ML PLCT IV SCH (00:15)
[2024-01-29] MEDS: ALBUMIN 25% 25 GM/100 ML VIAL IV ONE (01:05)
[2024-01-29] MEDS: POTASSIUM CHLORIDE / WTR 10 MEQ/100 ML PLCT IV SCH (01:06)
[2024-01-29] MEDS ORDERED: AMIODARONE / D5W 150 MG/100 ML BAG IV STA (02:59)
[2024-01-29] MEDS ORDERED: 0.2 MICRON FILTER SET 1 EACH IV STA (02:59)
[2024-01-29] MEDS ORDERED: STAT IV Infusion **Titration per Protocol STA (02:59)
[2024-01-29] MEDS ORDERED: AMIODARONE IV BOLUS & DRIP IV STA (02:59)
--- NOTE | 2024-01-29 03:00 | Communication Note ---
Date of Service: January 29, 2024 Patient with uncontrolled A-fib. Heart rate 130s, SBP 80s. Unable to give scheduled IV Lopressor doses ordered by cardiology due to hypotension. Patient comfortable as per RN. AP Uncontrolled A-fib Hypotension Initiate amiodarone infusion
[2024-01-29] MEDS ORDERED: AMIODARONE / D5W 360 MG/200 ML BAG IV ONE (03:09)
[2024-01-29] MEDS: AMIODARONE / D5W 150 MG/100 ML BAG IV ONE (03:21)
[2024-01-29 03:39] VITALS: BP 101/72; TEMP 97.5
[2024-01-29 03:39] LABS: Thyroid Stimulating Hormone 3.58 uIu/ml (0.300-4.500)
[2024-01-29] MEDS: AMIODARONE / D5W 360 MG/200 ML BAG IV SCH (03:40)
[2024-01-29 04:17] LABS: Appearance Urine Clear (Clear); Bilirubin Urine Negative (Negative); Blood Urine Trace-intact (Negative); Color Urine Yellow; Glucose Urine UA Negative (Negative); Ketones Urine 1+ (Negative); Leukocyte Esterase Urine Negative (Negative); Nitrite Urine Negative (Negative); Protein Urine 1+ (Negative); Specific Gravity Urine 1.025 (1.000-1.030); Urobilinogen Urine Positive (Negative); pH Urine 6.5 (4.5-7.5)
[2024-01-29 05:43] LABS: Bacteria Urine None Seen (None Seen); RBC Urine 0-2 /hpf (0-2); WBC Urine 0-5 /hpf (0-5)
[2024-01-29] MEDS: METOPROLOL TARTRATE 1 MG/ML VIAL IV SCH (06:07)
[2024-01-29 06:35] LABS: Hematocrit (blood only) 33.9 % (37.0-47.0); Hemoglobin 10.8 g/dl (12.0-16.0); Mean Corpuscular Hemoglobin 29.9 pg (25.0-34.0); Mean Corpuscular Hgb Conc 31.9 g/dL (32.0-36.0); Mean Corpuscular Volume 93.9 fL (80.0-100.0); Mean Platelet Volume 11.4 fL (9.4-12.4); Platelet Count 295 K/uL (130-400); RDW Coefficient of Variation 15.1 % (11.5-14.5); RDW Standard Deviation 51.8 fL (36.4-46.3); Red Blood Count 3.61 M/uL (4.20-5.40)
[2024-01-29 07:03] LABS: ANTI-Xa, UFH(UnfractionatedHep 0.22 IU/ml (0.3-0.7)
[2024-01-29 07:04] LABS: Albumin Level 3.9 gm/dl (3.4-5.0); BUN Creatinine Ratio 22.9 (10-20); Bilirubin,Total 1.4 mg/dl (0.2-1.0); Calcium 8.1 mg/dl (8.6-10.3); Creatinine Clr Calc Pharmacy 77.3 ml/min; Est GFR (African American) 108.1 ml/min; Est GFR (Non-African American) 93.3 ml/min; Potassium 4.3 mmol/L (3.5-5.1)
[2024-01-29 07:10] VITALS: RESP 18; O2SAT 90
--- NOTE | 2024-01-29 07:44 | Pulmonology Progress Note ---
Date of Service January 29, 2024 Assessment & Plan (1) Pleural effusion: (2) Aspiration pneumonia: (3) Paroxysmal atrial fibrillation: (4) Acute hypoxic respiratory failure: Plan CT chest 01/16/2024 personally reviewed: Bilateral apical pleural scarring Dense consolidative process appreciated in the right middle lobe as well as the right lower lobe Right hilar and subcarinal lymphadenopathy 2D echo 07/24/2023: EF 60-65%, moderate concentric LVH, grade 2 diastolic dysfunction, mild TR -- Acute hypoxic respiratory failure Secondary to multilobar pneumonia with new onset right-sided pleural effusion Respiratory BioFire negative for everything on 01/26/2024 Procalcitonin 0.36 -- Right-sided pleural effusion Likely parapneumonic on top of HFpEF BNP 847 -- DNR/DNI Plan: I do think patient is going to benefit from thoracentesis Continue to hold Eliquis Continue with diuresis Patient is planned for transfer to tertiary center for IR guided PEG tube placement Patient will benefit from [facility] Case was discussed with RN Please note the above document was generated using voice recognition software. It may contain grammatical, syntax or spelling errors.Any formal questions or concerns about the content, text or information contained within the body of this dictation should be directly addressed to the provider for clarification. Admission and Anticipated Discharge Date Admission Date: January 26, 2024 Subjective Patient seen and examined at bedside. No acute distress Patient was on 9 L oxygen saturating 90-91% Overnight she went into A-fib RVR and amiodarone was started Still coughing up greenish phlegm Denies any chest pain Review of Systems 2 Review of Systems: All systems reviewed & are unremarkable except as noted in Subjective Physical Exam 2 Physical Exam: Constitutional: No acute distress HEENT: EOMI, PERRLA Respiratory system: Decreased air entry bilaterally, more decreased on the right side, no wheeze, no rhonchi, positive crackles bilaterally CVS: S1-S2 positive, no murmurs or gallops Abdomen: Soft, nontender, nondistended, positive bowel sounds x4 Extremities: +2 pulses bilaterally radialis/ dorsalis pedis, no cyanosis, no edema Neuro: Awake alert oriented x3 Psych: Normal mood and affect G/U: Positive [place] Musculoskeletal: Thoracic kyphosis Skin: no rashes, warm and dry Lymphatic: no cervical or axillary lymphadenopathy Results & Data Results & Data Vital Signs (Past 12 Hours) Vital Signs Temp Pulse Pulse Resp BP BP Pulse Ox 01/29/24 07:40 72 01/29/24 07:08 66 18 90 01/29/24 03:38 36.4 C L 111 H 14 101/72 99 01/29/24 00:09 128 H 89/69 L 01/29/24 00:00 128 H 89/69 L 01/28/24 23:42 132 H 93 01/28/24 23:03 35.7 C L 129 H 16 94/65 L 01/28/24 22:18 01/28/24 21:48 133 H 81/49 L 01/28/24 21:33 110 H 01/28/24 20:14 114/70 O2 Del Method O2 Flow Rate 01/29/24 07:40 01/29/24 07:08 Nasal Cannula 9 01/29/24 03:38 High Flow Nasal Cannula 8 01/29/24 00:09 01/29/24 00:00 01/28/24 23:42 Nasal Cannula 01/28/24 23:03 01/28/24 22:18 Nasal Cannula 8 01/28/24 21:48 01/28/24 21:33 01/28/24 20:14 Laboratory Results 01/29/24 05:40 01/29/24 05:40 PG Care Time/CCT Total # of Minutes Spent Total Time Spent with Patient: Total time spent is greater than 50% in coordination of care (as documented) at patient's floor/unit and/or counseling patient: Coding Level of Care Code 96171 SUB INP/OBS CARE 2/35MIN Diagnoses Pleural effusion J90 Aspiration pneumonia J69.0 Paroxysmal atrial fibrillation I48.0 Acute hypoxic respiratory failure J96.01
[2024-01-29 08:22] VITALS: PULSE 89
[2024-01-29] MEDS ORDERED: AMIODARONE / D5W 360 MG/200 ML BAG IV SCH ×2 (09:00→09:30)
--- NOTE | 2024-01-29 09:44 | Discharge Summary ---
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 Per inpatient chart review patient with hospitalization 01/16/2024-01/25/2024 for aspiration pneumonia, acute hypoxic respiratory failure, atrial fibrillation required high flow oxygen, intermittent bipap. Initially treated with invanz and vancomycin. Pulmonology had recommended 2 weeks of antibiotic and hypertonic saline and percussive vest therapy. Carvedilol was discontinued and changed to metoprolol tartrate 50 mg 3 times daily. 2 step completed showing no oxygen at rest but 4L with activity and she was discharged on Augmentin and metoprolol tartrate. states that patient was weak during her recent hospitalization and prior to discharge it was discussed about considering rehab however patient opted to go home. Patient's reports he thought that he could manage patient at home. [facility] bedroom is on second floor. The night prior to presentation, patient was "played out" after ambulating into the house and she was unable to go upstairs to her bedroom. Patient slept on first floor. [facility] patient continued to have generalized weakness and attempted to ambulate upstairs and was only able to go four steps and felt fatigued and needed to stop. [facility] was discharged home with oxygen and have been using intermittently at 4 L. [facility] has been checking pulse ox and has been ranging from 92-94 to high 80s. Patient has not been ambulating much at home. Denies any fevers since returning home. Denies any increased shortness of breath or increased cough. Reports at baseline patient has chronic oral secretions and drooling. Denies any increased oral secretions or drooling. Denies any choking since going home. Does not take anything by mouth at baseline. Limited talking at baseline. Patient's states difficulty with ambulating and deconditioning is the reason for returning to ER and otherwise feels patient close to her baseline. Patient and deny and vomiting or noted choking since returning home from hospital in past 24 hours. Denies fever/chills, diarrhea, constipation, HEWITT, dizziness, syncope, CP, palpitations, rhinorrhea, abdominal pain, extremity edema, rashes, urinary symptoms. Denies fall at home. Admission Exam Per Admitting Provider General: +chronic ill appearing, no distress on current 3L via NC with O2 sat 97%, thin elderly female +kyphosis and sitting slumped forward Head: normocephalic, atraumatic Eyes: PERRL, EOM's intact, conjunctiva non-injected, anicteric ENT: normal inspection external ears, nose, mucous membranes moist, + drooling saliva Neck: supple, trachea midline Lungs: no respiratory distress on current 3L via NC with O2 sat 97%, +scattered rhonchi CV: RRR, no pretibial edema Abd: feeding tube in place, normal BS, soft, non-tender Ext: no cyanosis, no calf tenderness Neuro: +drowsy, but awakens with voice, unable to speak much (chronic from prior radiation), normal affect Skin: warm, dry Principal Diagnosis Dislodged PEG tube Acute respiratory failure with hypoxia Aspiration pneumonia Right pleural effusion RLE Deep venous thrombosis Paroxysmal Afib with rapid ventricular rate Discharge Exam Patient was transferred early this morning before she could be seen Discharge Data Allergies Allergy/AdvReac Type Severity Reaction Status Date / Time Penicillins Allergy Mild Verified 09/21/21 13:54 Consultations 01/26/24 15:04 ED Decision to Admit Stat 01/27/24 01:51 Consult Gastroenterology Routine 01/28/24 07:46 Consult Pulmonology Routine 01/28/24 14:11 Consult Cardiology Routine 01/28/24 15:46 Burn CD for patient Stat Ordered Studies 01/27/24 10:13 CT abd pelvis IV con only Stat 01/27/24 13:46 US venous doppler LE RT Urgent 01/29/24 07:02 IR thoracentesis wo tube US Routine Hospital Course (1) Ambulatory dysfunction: (2) Physical deconditionin-year-old female with past med history significant for left breast cancer status post partial mastectomy 2004, 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 Just discharged on 01/25/2024 for aspiration pneumonia and easily fatigued and not ambulating well at home. Patient with physical deconditioning 2/2 recent pneumonia and hospitalization. Patient and had declined rehab before discharge home with HH on 01/25/24 (3) Acute hypoxic respiratory failure: (4) Pleural effusion: (5) Aspiration pneumonia: Discharged 01/25/2024 for aspiration pneumonia, acute hypoxic respiratory failure, that required high flow oxygen, intermittent bipap. Initially treated with invanz and vancomycin then switched to Unasyn per pulm recommendations as well as treated with hypertonic saline and percussive vest therapy. 2 step completed prior to dc showing no oxygen at rest but 4L with activity and she was discharged on Augmentin In ER patient afebrile, P: 74, R: 18, BP 178/88, 98% on 4L via NC Respiratory biofire negative. No leukocytosis CXR: Cardiomegaly with mild pulmonary vascular congestion. Dense airspace consolidation in the right lower lung and a small right pleural effusion is similar to previous and typical for pneumonia. Continued follow-up to resolution is recommended. Dense right basilar consolidation, right pleural effusion and mild airspace consolidation in left lung base and trace pleural effusion noted on CT A/P Continue Unasyn Pulmonology had planned possible right thoracentesis today prior to transfer Managing team at receiving center can reassess Continue oxygen supplementation and wean as tolerated (6) Right leg DVT: CT A/P today also noted possible filling defect in proximal right superficial femoral vein vs mixing artifact and RLE venous USS recommended. RLE DVT showed Right superficial femoral DVT Currently on heparin drip Once PEG is reestablished, can resume eliquis but at therapeutic dose (7) Paroxysmal atrial fibrillation: Recent admission: carvedilol was discontinued and changed to metoprolol tartrate 50 mg TID Was on Eliquis 2.5mg BID at home Was in sinus rhythm but went into AFib w/RVR the afternoon of 01/28/24 Cardiology evaluated and was managing with IV lopressor Was started on amiodarone drip overnight (8) Tongue cancer: (9) S/P percutaneous endoscopic gastrostomy (PEG) tube placement: (10) Oropharyngeal dysphagia: (11) Protein calorie malnutrition: (12) H/O partial mastectomy: History of squamous cell carcinoma of tongue S/P radiation S/P PEG Tube History of left breast cancer Status post partial mastectomy NPO status at baseline Nutrition and meds via PEG tube However, PEG is dislodged on night of admission of 01/26/24 On 01/27/24, GI Dr Concepcion evaluated and noted site is closed CT abd/P did not show any sign of intra abdominal infection GI reevaluated and noted they cannot replace PEG that it needs IR to replace. Transfer recommended for IR PEG placement Patient was accepted to [facility] on 01/28/24 for IR PEG placement and continued management of all medical problems However, transport was not available last night until early this morning (13) Hypothyroidism: On levothyroxine at home Total Time Total Time Spent Total Time Spent (In Minutes): 0 Total Time Includes: Other Discharge Plan Discharge Items Patient Disposition: Transfer Acute Care Hospital Reason For Visit: AMBULATORY DYSFUNCTION Discharge Diagnosis: Dislodged PEG tube Acute respiratory failure with hypoxia Aspiration pneumonia Right pleural effusion RLE Deep venous thrombosis Paroxysmal Afib with rapid ventricular rate Activity: As commented below Non-emergency contact: Primary Care Provider Call non-emergency contact if: you have any medication questions Follow-up/Referrals: PCP,NO [Primary Care Provider] - Diet: Nothing by Mouth Addtl Attending Provider Instructions: Mrs Jackson. You were hospitalized and managed for the above listed diagnoses. Your PEG tube got dislodged and needs IR for replacement. You are being transferred to IR for replacement. You will also continue management of other active medical problems over there. You were found to have blood clot in your leg and currently on heparin drip. Your eliquis dose will need to be adjusted once PEG is reestablished. It was a pleasure taking care of you. Pending Studies at Discharge: No Stand-Alone Forms: My [facility] Skilled Items Patient informed of condition?: Yes DNR: Yes Discharge Level of Care: Other Communicable Disease: No Discharge Prognosis: Stable Lines: Peripheral IV Urinary Catheter: No Medications and DC Order Prescriptions: Continued acetaminophen [Children's Acetaminophen] 160 mg/5 mL Liquid 640 mg feeding tube QID PRN (Reason: Pain) nutritional supplement-fiber Liquid 2 ea feeding tube TID Rx Instructions: 2 cans via feeding tube TID levothyroxine 100 mcg tablet 100 mcg feeding tube DAILY Eliquis 2.5 mg tablet 2.5 mg feeding tube BID amoxicillin-pot clavulanate 500-125 mg tablet 1 tab feeding tube TID 5 Days Qty: 15 0RF metoprolol tartrate 50 mg Tablet 50 mg feeding tube TID 30 Days Qty: 90 0RF Discharge Orders: Discharge Order (Routine); Ordered 01/28/24 Ordered By: Alena Jara Admission Data Admit Date/Time: 01/26/24 15:24 Attending Provider: Alena Jara I. Admit Provider: Sachin Meng Primary Care Provider: PCP,NO Other Providers: Sachin Meng; Arturo Diaz; Sukhdeep Lynn; Yari Land; Saniya Wilcox; Simran Blanton; Angie Ch; Cassie Newman; Jose Villeda; Wilder Patricia; Stephy Guo; Imtiaz Kinsey; Nicolás Singer S; Anabel Avendaño; Ely Watkins; Rena Chicas; Lazara Sheikh; Michelle Pino; Arnie Carreon; Berta Villagomez; Donna Ponce Jr; Joey Cruz.; Hardy Concepcion; Deshawn Moore; Abel Huffman; Corina Lainez; Faustino Mace I; Phuong Mohan; Angela Tan; Nick Carbajal Other Interventions: Discharge Summary Assessment (RN) Last Done: 01/29/24 08:19
--- NOTE | 2024-01-29 10:58 | Electrocardiogram Report ---
Test Reason : Blood Pressure : */* mmHG Vent. Rate : 131 BPM Atrial Rate : 133 BPM P-R Int : * ms QRS Dur : 94 ms QT Int : 348 ms P-R-T Axes : * -53 19 degrees QTcB Int : 513 ms Atrial fibrillation with rapid ventricular response Left anterior fascicular block Poor R wave progression, consider anterior TN vs. lead placement vs. LVH ST segement changes concerning for ischemia When compared with ECG of 28-Jan-2024 15:01, T wave inversion no longer evident in Anterior leads Confirmed by Topher Leblanc ([id number]) on 01/29/2024 10:58:28 AM Referred By: REFERRED SELF Confirmed By: Topher Leblanc
--- NOTE | 2024-01-29 11:00 | Electrocardiogram Report ---
Test Reason : Blood Pressure : */* mmHG Vent. Rate : 63 BPM Atrial Rate : 63 BPM P-R Int : 242 ms QRS Dur : 80 ms QT Int : 460 ms P-R-T Axes : 58 -39 -17 degrees QTcB Int : 470 ms Sinus rhythm with 1st degree A-V block with Premature atrial complexes Left axis deviation Abnormal ECG When compared with ECG of 29-Jan-2024 00:27, (unconfirmed) Sinus rhythm has replaced Atrial fibrillation Vent. rate has decreased by 68 bpm T wave inversion now evident in Inferior leads Confirmed by Topher Leblanc ([id number] on 01/29/2024 11:00:30 AM Referred By: REFERRED SELF Confirmed By: Topher Leblanc
== END 2024-01-29 08:20 | disposition short-term general hospital (02) | DRG 177 ==
LOC: ED 11:53 → SUATTDRO 15:24 → 2W 15:24 → 2S 22:21